=== PATIENT | male | born 1950 | race Caucasian/White ===

== ENCOUNTER 2017-10-02 19:51 | Inpatient (IN) | payer MEDICARE, OTHER, SELFPAY ==
[2017-10-02 19:52] VITALS: BP 191/98; PULSE 111; RESP 20; TEMP 37.1; O2SAT 95; BMI 27.6
--- NOTE | 2017-10-02 20:06 | EKG12_ITS ---
Test Reason : Blood Pressure : / mmHG Vent. Rate : 098 BPM Atrial Rate : 098 BPM P-R Int : 120 ms QRS Dur : 082 ms QT Int : 360 ms P-R-T Axes : 054 042 035 degrees QTc Int : 459 ms Normal sinus rhythm Normal ECG Confirmed by LYNDA JOHNSON, SERGIO ([id number]), managing editor MIR VANEGAS ([id number]) on 10/06/2017 4:22:26 PM Referred By: Tavon Mullen Confirmed By:SERGIO HOWELL MD
--- NOTE | 2017-10-02 20:06 | CT_ITS ---
STUDY: CTA CHEST REASON FOR EXAM: Male, 66 years old. SOB X 2 WEEKS BUT WORSE NOW,ELEVATED BP RADIATION DOSAGE (If Supplied By Facility): CTDIvol = ( 14.13 ) mGy, DLP = ( 549.07 ) mGycm TECHNIQUE: The examination was performed with the intravenous administration of 75ML ml of Isovue 370 contrast material. Post-processing of the angiographic images was performed, with multiplanar reformation and 3D reconstruction. Individualized dose optimization techniques were used for this CT. COMPARISON: 05.15.17 FINDINGS: History of a defect in the right upper lobe, right middle lobe and right lower lobe pulmonary artery. Filling of the main right pulmonary artery and left pulmonary artery. There is no saddle embolus. Filling defect in the left lower lobe and left upper lobe. Normal thoracic aorta and visualized great vessels. There is no demonstrated aortic dissection. Normal heart and pericardium. Normal mediastinum. Normal hilar regions. Normal visualized trachea and bronchi. Left lower lobe infiltrate suggesting pneumonia. Small right pleural effusion. Moderate left pleural effusion. Normal chest wall structures. Normal osseous structures. Normal visualized upper abdomen. CT/CTA Chest W/WO Contrast IMPRESSION: Bilateral pulmonary emboli. There is no saddle embolus. Left lower lobe infiltrate suggesting pneumonia. Small right pleural effusion. Moderate left pleural effusion. N.B. : The above information has been verbally conveyed by Antonio Hamlin MD to Danyel Cai on 10/02/2017 23:07:39 (ET). Electronically Signed: Antonio Hamlin MD at 21:46 EST , Service support , N.B. : The above information has been verbally conveyed by Antonio Hamlin MD to Danyel Cai on 10/02/2017 23:07:39 (ET).
--- NOTE | 2017-10-02 20:07 | ED.VISSUMM ---
- ER Visit Summary Date of Service: 10/02/17 Chief Complaint: Shortness of breath History of Present Illness: The patient is a 66 M with recent diagnosis of adenocarcinoma of the left lung who had partial lobectomy in July with clear margins who has not started chemotherapy yet presents with increasing dyspnea. She states over the past 2 weeks, he has had some increasing shortness of breath. He feels like he cannot catch his breath. If he walks any distance, he gets very short of breath. He has had no chest pain. He has had a constant cough with scant sputum. He denies any fevers. He has noticed he has had some right calf pain also and noticed that his leg does seem to be more swollen. He is not on anticoagulants. He was seen by pulmonology a week ago and was started on inhalers with little relief. Physical Examination: Vital signs reviewed General: Well-nourished, well-developed Head: Normocephalic, atraumatic Eyes: Pupils equal and reactive, extraocular muscles intact Neck, supple, no lymphadenopathy Heart: Regular tachycardia Respiratory: Diminished in the left base without wheezing or rhonchi Abdomen: Soft, nontender, nondistended, no peritoneal signs Back: Nontender Extremities: Asymmetric edema of right lower extremity. Normal pulses. Tenderness in calf. Skin: Normal color no rash Neuro: Alert and oriented, no focal or lateralizing deficits Test Results: [] Emergency Department Course and Treatment: The patient presents with shortness of breath but he has clear lungs. He does have persistent tachycardia, recent diagnosis of cancer, and asymmetric leg swelling. My concern was obviously for pulmonary emboli. Screening labs are obtained and are relatively unremarkable. The patient underwent CT of his chest. He has numerous bilateral pulmonary emboli. There is no saddle embolus. He has no evidence of acute right ventricular strain. He is not hypoxic. I discussed the patient with oncology who agreed with plan for heparinization. With the patient's dyspnea and significant PE, he will be admitted to the hospital. Patient was discussed with the hospitalist. Treatment Plan: [] Disposition: Admission Impression: 1. Acute bilateral pulmonary emboli This note was generated with ZeroDesktop[employer] software. It may contain incorrect words, spelling, and punctuation that were not noted in review of the chart prior to signing ED Disposition - Plan for ED Patient: Chief Complaint: Shortness of Breath Referrals: Fernando Mock, DO [NON-STAFF] -
[2017-10-02] MEDS: 0.9% Normal Saline 1,000 ML 1000 ML IV (20:20)
[2017-10-02 20:22] VITALS: BP 157/90; PULSE 100; RESP 18; O2SAT 100
[2017-10-02 20:25] VITALS: O2SAT 100
[2017-10-02 20:26] LABS: Absolute Lymphocyte Count 0.93 X10^3/ul (0.83-4.51); Basophil# 0.02 X10^3/uL; Basophil% 0.2 % (0-1); Eosinophil# 0.24 X10^3/uL; Eosinophils% 2.4 % (0-5); Hematocrit 32.1 % (40-54); Hemoglobin 10.5 g/dl (13.0-16.5); International Normalized Ratio 1.2; Lymphocyte # 0.93 X10^3/ul (4.0); Lymphocyte % 9.2 % (19-41); Mean Corp Hgb Conc 32.7 g/gl (32-36); Mean Corpuscular Hgb 29.1 pg (27.0-32.0); Mean Corpuscular Volume 88.9 fL (80-94); Mean Platelet Vol. 8.7 fl (6.2-12.0); Monocyte# 0.96 X10^3/uL; Monocyte% 9.4 % (0-10); Neutrophil # 7.98 X10^3/uL (2.7-7.7); Neutrophil % 78.5 % (47-70); POSITIVE COUNT NO; POSITIVE DIFFERENTIAL NO; POSITIVE MORPHOLOGY NO; Platelet Count 207 K/mm3 (150-450); Prothrombin Time (Protime)PT. 15.4 SECONDS (11.7-14.9); RBC Distribution Width CV 13.7 % (11.6-14.6); RBC Distribution Width SD 44.7 fl (35.1-43.9); Red Blood Count 3.61 M/mm3 (4.6-6.2); White Blood Count 10.2 K/mm3 (4.4-11.0)
[2017-10-02 20:27] LABS: Partial Thromboplast Time 32.7 Seconds (24.1-36.2)
--- NOTE | 2017-10-02 20:30 | RAD_ITS ---
STUDY: X-RAY CHEST REASON FOR EXAM: Male, 66 years old. CHEST PAIN TECHNIQUE: Single frontal view of the chest. COMPARISON: May 11, 2017 FINDINGS: Chronic appearing increased interstitial lung markings. There is an elevated left hemidiaphragm. Scarring or small left pleural effusion. Enlarged heart size. Normal mediastinum and quinton. Normal visualized pulmonary arteries. There is atherosclerotic calcification of the aortic arch with tortuosity. There are diffuse degenerative changes of the visualized thoracic spine. There is degenerative osteoarthritis of the bilateral shoulders. There is no demonstrated abnormality of the visualized soft tissue structures of the upper abdomen. RAD/Chest 1 View (Portable) IMPRESSION: Scarring or small left pleural effusion. Electronically Signed: Antonio Hamlin MD at 21:28 EST , Service support ,
[2017-10-02 20:33] LABS: Anion Gap 9 (5-15); BUN 14 mg/dL (7-18); BUN/Creat Ratio 15.1 RATIO (10-20); Calcium,Total 8.6 mg/dL (8.5-10.1); Chloride 105 mmol/L (98-107); Creatinine, Serum 0.93 mg/dL (0.70-1.30); EST Glomerular Filtration Rate 87 mL/min (>60); Est Glom Filt Rate - Afr Amer 105 mL/min (>60); Estimated Creatinine Clearance 82.86 ml/min; Glucose 114 mg/dL (74-106); Potassium 3.3 mmol/L (3.5-5.1); Sodium Level 139 mmol/L (136-145)
[2017-10-02 20:57] LABS: BNP,B-Type NATRIURETIC PEPTIDE 114.6 pg/mL (0-100)
[2017-10-02 21:00] VITALS: BP 148/89; PULSE 90; RESP 16; O2SAT 99
[2017-10-02] MEDS: HEPARIN/D5w 25,000 UNITS 25,000 UNITS/250 ML IV.SOLN. 10 UNITS IV (21:40)
[2017-10-02 22:00] VITALS: BP 151/89; PULSE 87; RESP 17; O2SAT 98
[2017-10-02 22:51] VITALS: BP 151/89; PULSE 87; RESP 17; O2SAT 98
--- NOTE | 2017-10-02 23:27 | PCM.HP.STD ---
Problem List (1) Pulmonary embolism Status: Acute (2) Cancer of lower lobe of left lung Status: Acute (3) History of prostatectomy Status: Acute (4) Hyperlipidemia Status: Acute (5) Limb weakness Status: Acute (6) Hypertension Status: Chronic (7) Multiple sclerosis Status: Chronic Comment: left leg weakness (8) Prostate cancer Status: Chronic Comment: surgery , R.T. 2014 PSA relapse 2016 ADT History of Present Illness Date of Admission: 10/02/17 Chief Complaint: SOB The patient is a 66 year old male w/ h/o prostate cancer status post radical prostatectomy followed by adjuvant radiation therapy in 2014 and has been on ADT since 2016 due to PSA relapse, residual left lower extremity weakness from a remote attack with multiple sclerosis, and non-small adenocarcinoma cell lung cancer, stage IIB(T2b, N1, M0) status post left lower lobectomy and lymph node dissection at [facility] July 03, 2017 with R0 resection admitted for SOB secondary to bilateral PE. He has been getting SOB for the past few weeks. Nothing appeared to make it better or worse. He also has a chronic nonproductive cough. The intensity and frequency of the cough have been unchanged. His SOB affected him all part of the day and yesterday SOB has been so severe that he is unable to bend over and tie his shoes. He is unable to perform his ADLs. He went to the ED for further workup. Past Medical History Past Medical History (Chronic Problems): Chronic Problems (Last Reviewed 09/24/17 @ 15:20 by Miguelina Saenz NP-C) Adenocarcinoma of lung (Chronic) Hypertension (Chronic) 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) [facility] 07/03/17 Prostate cancer (Chronic) surgery , R.T. 2014 PSA relapse 2016 ADT Multiple sclerosis (Chronic) left leg weakness Allergies morphine Adverse Reaction (Verified 10/02/17 19:55) MAKES HIS NAUSEATED AND SICK Home Medications: Ambulatory Orders Medication Instructions Recorded RX: Folic Acid 1 mg PO DAILY@0800 #30 tab 09/15/17 Lupron Depot 10/02/17 RX: Losartan Potassium 50 mg PO DAILY 10/02/17 Surgical History: - - Lobectomy Lives: Spouse/ Significant Other Smoking Status: Former smoker Alcohol: None Drugs: None - *Family History Maternal History Items: - - Paternal Past Medical History: Liver disease Paternal History of Cancer: Liver cancer,Prostate cancer Maternal Past Medical History:Unknown Maternal History of Cancer: Bone cancer VTE Information - Inpt Only VTE Present on Admission: No VTE Mechan Device Prophylaxis: None VTE Pharm Prophylaxis ordered?: Yes Patient Problems: Active and Suspected Problems (Last Reviewed 09/24/17 @ 15:20 by Miguelina Saenz NP-C) Pulmonary embolism (Acute) - Physical Exam General: Alert, Oriented x3, Cooperative HEENT: Atraumatic, PERRLA, EOMI, Normocephalic Neck: Supple, No JVD, Negative Carotid Bruits Lungs: Diminished, Rales Cardiovascular: Regular rate, No murmurs Abdomen: Bowel Sounds Present, Soft, Non Tender Extremities: No edema, Capillary Refill Less than 3 Seconds Skin: No rashes, No breakdown Musculoskeletal: No Tenderness to Palpation of Joints or Extremities Neurological: Cranial nerves II-XII grossly intact Psych/Mental Status: Normal Affect, Appropriate Vital Signs Temp Pulse Resp BP Pulse Ox 98.7 F 87 17 151/89 H 98 10/02/17 19:52 10/02/17 22:51 10/02/17 22:51 10/02/17 22:51 10/02/17 22:51 Oxygen Flow Rate 2 Oxygen Delivery Method Nasal Cannula Weight: 87.543 kg Body Mass Index (BMI) 27.6 Laboratory Tests Past 24 Hrs 10/02/17 10/02/17 10/02/17 20:10 20:10 20:10 WBC 10.2 RBC 3.61 L Hgb 10.5 L Hct 32.1 L MCV 88.9 MCH 29.1 MCHC 32.7 RDW 13.7 RDW Differential 44.7 H Plt Count 207 MPV 8.7 Immature Gran % (Auto) 0.300 Neut % (Auto) 78.5 H Lymph % (Auto) 9.2 L [place] % (Auto) 9.4 Eos % (Auto) 2.4 Baso % (Auto) 0.2 Absolute Neuts (auto) 8.0 H Absolute Lymphs (auto) 0.93 Total Counted Not Reportable PT 15.4 H INR 1.2 APTT 32.7 Sodium 139 Potassium 3.3 L Chloride 105 Carbon Dioxide 25.0 Anion Gap 9 BUN 14 Creatinine 0.93 Estim Creat Clear Calc 82.86 Est GFR (MDRD) Af Amer 105 Est GFR (MDRD) Non-Af 87 BUN/Creatinine Ratio 15.1 Glucose 114 H Calcium 8.6 Troponin I 0.02 B-Natriuretic Peptide 10/02/17 20:10 WBC RBC Hgb Hct MCV MCH MCHC RDW RDW Differential Plt Count MPV Immature Gran % (Auto) Neut % (Auto) Lymph % (Auto) [place] % (Auto) Eos % (Auto) Baso % (Auto) Absolute Neuts (auto) Absolute Lymphs (auto) Total Counted PT INR APTT Sodium Potassium Chloride Carbon Dioxide Anion Gap BUN Creatinine Estim Creat Clear Calc Est GFR (MDRD) Af Amer Est GFR (MDRD) Non-Af BUN/Creatinine Ratio Glucose Calcium Troponin I B-Natriuretic Peptide 114.6 H Assessment/Plan Active and Suspected Problems (Last Reviewed 09/24/17 @ 15:20 by Miguelina Saenz, JUAN LUIS-C) Pulmonary embolism (Acute) 66 year old male w/ h/o prostate cancer status post radical prostatectomy followed by adjuvant radiation therapy in 2014 and has been on ADT since 2016 due to PSA relapse, residual left lower extremity weakness from a remote attack with multiple sclerosis, and non-small adenocarcinoma cell lung cancer, stage IIB(T2b, N1, M0) status post left lower lobectomy and lymph node dissection at [facility] July 03, 2017 with R0 resection admitted for SOB secondary to bilateral PE. 1) Acute bilateral PE: Will start heparin gtt. Will get ECHO and doppler in AM. Will get trops. No e/o heart strain on EKG. C/w oxygen. 2) Non-small adenocarcinoma cell lung cancer, stage IIB(T2b, N1, M0) status post left lower lobectomy and lymph node dissection at [facility] July 03, 2017 with R0 resection: Pt to have port place on Thursday. He is to start adjuvant chemotherapy with carboplatin Alimta for 4 cycles supported with antiemetics, steroids, B12 and folic acid and primary prophylaxis against febrile neutropenia with Neulasta due to increased risk for febrile neutropenia outpt. Monitor. 3) Hypokalemia: Will replace. Monitor. 4) Prophylaxis: Heparin gtt.
[2017-10-03] VITALS (15 sets, daily range): BP systolic 126–168; BP diastolic 71–98; PULSE 82–112; RESP 16–22; TEMP 36.7–37.3; O2SAT 95–98; BMI 26.8; BMI 27.7
[2017-10-03] MEDS: 0.9% Normal Saline 1,000 ML 100 ML IV ×2 (01:34→14:46)
[2017-10-03 04:41] LABS: Hematocrit 27.2 % (40-54); Hemoglobin 9.1 g/dl (13.0-16.5); Mean Corp Hgb Conc 33.5 g/gl (32-36); Mean Corpuscular Hgb 30.2 pg (27.0-32.0); Mean Corpuscular Volume 90.4 fL (80-94); Mean Platelet Vol. 8.9 fl (6.2-12.0); Platelet Count 189 K/mm3 (150-450); RBC Distribution Width CV 13.3 % (11.6-14.6); RBC Distribution Width SD 42.8 fl (35.1-43.9); Red Blood Count 3.01 M/mm3 (4.6-6.2); Scan Indicated on CBC? Y/N NO; White Blood Count 8.2 K/mm3 (4.4-11.0)
[2017-10-03 04:55] LABS: Partial Thromboplast Time 63.1 Seconds (24.1-36.2)
[2017-10-03] MEDS: Piperacil/Tazobactam 3.375 GM/50 ML ML IV ×3 (05:02→21:43)
[2017-10-03 05:06] LABS: Anion Gap 7 (5-15); BUN 12 mg/dL (7-18); BUN/Creat Ratio 15.6 RATIO (10-20); Chloride 104 mmol/L (98-107); Creatinine, Serum 0.77 mg/dL (0.70-1.30); EST Glomerular Filtration Rate 108 mL/min (>60); Est Glom Filt Rate - Afr Amer 131 mL/min (>60); Estimated Creatinine Clearance 100.07 ml/min; Glucose 95 mg/dL (74-106); Potassium 3.9 mmol/L (3.5-5.1); Sodium Level 136 mmol/L (136-145)
--- NOTE | 2017-10-03 05:55 | ECHOD_ITS ---
Reason For Study: Emboli Procedure This was a 2D Doppler, Color Flow transthoracic echocardiogram. Exam performed portable in patient room. Left Ventricle Normal size and thickness. The estimated ejection fraction is 65 %. Stage II diastolic dysfunction. Right Ventricle Normal right ventricle. Normal systolic function. Atria The left atrium is mildly enlarged. Mitral Valve The mitral valve is structurally normal. No prolapse or stenosis seen. Trivial mitral valve insufficiency. Tricuspid Valve Normal tricuspid valve. Moderate (2+) tricuspid valve insufficiency. Right ventricular systolic pressure estimated to be 60 mmHg. Aortic Valve Normal aortic valve. Pulmonic Valve Normal pulmonic valve. Trivial pulmonic valve insufficiency. Great Vessels Normal aortic root. Pericardium/Pleural No pericardial effusion. MMode/2D Measurements & Calculations LVIDd: 4.8 cm IVSd: 1.00 cm Ao root diam: 3.1 cm LVIDs: 3.0 cm LVPWd: 0.96 cm LA dimension: 4.4 cm RVDd: 3.5 cm FS: 38.1 % LAV(MOD-bp): 55.5 ml LA A4 area: 18.1 cm2 RA A4 area: 14.3 cm2 LAV(MOD-bp) Indexed: 27.0 ml/m2 LAV(MOD-sp2): 57.0 ml LAV(MOD-sp4): 49.1 ml Doppler Measurements & Calculations MV E max kiran: 82.4 cm/sec Lat Peak E' Kiran: 14.5 cm/sec Med Peak E' Kiran: 7.9 cm/sec MV A max kiran: 75.4 cm/sec E/E' lat: 5.7 E/E' med: 10.4 MV E/A: 1.1 Ao V2 max: 132.0 cm/sec LV V1 max: 125.7 cm/sec PA V2 max: 83.2 cm/sec Ao max P.0 mmHg LV V1 max P.3 mmHg Ao V2 mean: 95.9 cm/sec Ao mean P.1 mmHg Ao V2 VTI: 24.6 cm TR max kiran: 370.5 cm/sec TR max P.9 mmHg Interpretation Summary The estimated ejection fraction is 65 %. Stage II diastolic dysfunction. Moderate (2+) tricuspid valve insufficiency Right ventricular systolic pressure estimated to be 60 mmHg. Severe pulmonary hypertension Normal RV size and systolic function Ordering Physician: Braulio De La Rosa Referring Physician: Doron Vernon Performed By: Florence Garner, MARY, RVT
--- NOTE | 2017-10-03 07:52 | VDLE_ITS ---
Reason For Study: PE RIGHT LEFT CFV is partially compressible with decreased CFV is compressible, spontaneous, phasic, flow. competent, and demonstrates normal FV and POP V are dilated and noncompressible augmentation. with no flow. FV is compressible, spontaneous, phasic, T/P Trunk, PTV, Peroneal V, Gastroc V, and competent and demonstrates normal Soleus V are dilated and noncompressible. augmentation. GSV is normal. POP V is compressible, spontaneous, phasic, Procedure competent and demonstrates normal Exam performed portable in patient room. augmentation. The exam was diagnostic. LT PerV is compressible. A preliminary report was called and/or faxed T/P Trunk and PTV are dilated and to the pt's RN. noncompressible. GSV is dilated and noncompressible from the ankle to the knee. Remainder of GSV is compressible. Interpretation Summary Acute deep venous thrombosis right common femoral, femoral, popliteal, tibioperoneal trunk, posterior tibial, gastrocnemius, and soleus veins. Acute deep venous thrombosis left tibioperoneal trunk and posterior tibial veins. Superficial thrombophlebitis left great saphenous vein from the ankle to the knee. Ordering Physician: Skye Haro Performed By: Hamilton Anne RVT
--- NOTE | 2017-10-03 07:55 | PCM.PN.HOSP ---
Patient Problems: Active and Suspected Problems (Last Reviewed 09/24/17 @ 15:20 by HAI Zamora) Pulmonary embolism (Acute) Subjective: Patient with no acute events since presentation per his and nursing report. He denies any chest discomfort or worsened dyspnea since initial presentation. Admit to right greater than left lower extremity edema and some discomfort recently over the last couple weeks behind his right knee. Patient denies fevers, chills, nausea, emesis, abdominal pain, chest pain. Objective: Physical Examination: General: awake, alert, oriented x 3 and cooperative, seated upright in bed in no apparent distress. Skin: normal color, turgor, no icterus, cyanosis. HEENT: AT/NC, EOMI, PERRLA, MMM. Lungs: Diminished BS, > bases, despite CTPA findings, not coarse, no rales, ronchi or wheezing. Heart: Regular rate and rhythm; no gallop, rub audible. Abdomen: soft, NTTP, ND, normal BS. Extremities: no cyanosis, clubbing, RLE s/p several toe amputations, R>L mild non-pitting edema, TTP palpation R calf/posterior knee region. Neurological: patient awake, alert, oriented x 3; cognitive function intact; pupils equally reactive to light and accomodation; cranial nerves II-XII grossly normal, moving all 4 extremities, no focal deficits, strength mildly to moderately globally decreased. Psychiatric: affect appears normal, no acute evidence of depressive or anxiety feelings. Vitals/I&O's: Vital Signs Temp Pulse Resp BP Pulse Ox 99.1 F 112 H 18 126/79 H 97 10/03/17 03:57 10/03/17 07:12 10/03/17 03:57 10/03/17 03:57 10/03/17 03:57 Oxygen Delivery Method Room Air Weight: 187 lb 2.759 oz Body Mass Index (BMI) 26.8 Intake and Output for Last 24 Hours 10/01/17 10/02/17 10/03/17 23:59 23:59 23:59 Intake Total 511.7 / 511.7 Balance 511.7 / 511.7 Laboratory Results 10/03/17 04:26: WBC 8.2, RBC 3.01 L, Hgb 9.1 L, Hct 27.2 L, MCV 90.4, MCH 30.2, MCHC 33.5, RDW 13.3, RDW Differential 42.8, Plt Count 189, MPV 8.9 10/03/17 04:26: Sodium 136, Potassium 3.9, Chloride 104, Carbon Dioxide 25.0, Anion Gap 7, BUN 12, Creatinine 0.77, Estim Creat Clear Calc 100.07, Est GFR (MDRD) Af Amer 131, Est GFR (MDRD) Non-Af 108, BUN/Creatinine Ratio 15.6, Glucose 95, Calcium 8.0 L 10/03/17 04:26: APTT 63.1 H Current Medications Enoxaparin Sodium (Lovenox) 80 mg 1 mg/kg (80 mg) SC Q12@0600,1800 VALENTIN Folic Acid (Folic Acid) 1 mg PO DAILY@0800 [facility] Heparin Sodium (Porcine) (Heparin Na) 0 unit IV UD PRN PRN Reason: Protocol Sodium Chloride () 1,000 mls @ 100 mls/hr IV .Q10H [facility] Last Admin: 10/03/17 01:34 Dose: 100 mls/hr Piperacillin Sod/Tazobactam Sod (Zosyn) 3.375 gm in 50 mls @ 12.5 mls/hr IV Q8 VALENTIN Last Admin: 10/03/17 05:02 Dose: 12.5 mls/hr Levofloxacin (Levaquin) 750 mg in 150 mls @ 100 mls/hr IV Q24H [facility] Losartan Potassium (Cozaar) 50 mg PO DAILY [facility] Magnesium Hydroxide (Milk Of Magnesia) 30 ml PO DAILY PRN PRN Reason: Constipation Sodium Chloride () 5 - 30 ml IV UD PRN PRN Reason: SALINE FLUSH Assessment/Plan Active and Suspected Problems (Last Reviewed 09/24/17 @ 15:20 by Miguelina Saenz NP-C) Pulmonary embolism (Acute) The patient is a 66 y/o M w/ PMHx: HTN, HLD, Prostate cancer s/p radical prostatectomy followed by adjuvant radiation therapy 2014 followed by ADT since 2015 due to PSA relapse, Chronic Residual LLE weakness following Remote attack with Multiple Sclerosis, Non-small adenocarcinoma cell lung cancer, stage IIB (T2b, N1, M0) status post LLL lobectomy and lymph node dissection [facility] July 03, 2017 with R0 resection who presents to the [facility] ED on 10/03/17 with dyspnea x 2 weeks. (1) Dyspnea secondary to Acute BL Pulmonary Embolism, HCAP (see #2): EKG without acute findings, CXR no acute process w/ chronic changes, ? L pleural effusion, CTPA with BL PE, no addle embolus, LL infiltrate, small R pleural effusion, moderate L pleural effusion, CBC w/ WBC 10.2, Hgb 10.5, Plts 207 with L shift, chemistry w/ K 3.3 and glucose 114 otherwise not marked, trop x 1 normal. Admitted to the PCU, maintained on cardiac telemetry, BNP 114.6, ECHO w/ EF 65%, stage II diastolic dysfunction, moderate TV insufficiency, RVSP 60 mmHg consistent with severe pulmonary hypertension, normal RV and systolic function, BL LE DVT US + BL per preliminary read, final read pending. In the ED initiated on heparin drip. Given acute BL PE in the setting of known cancer, per recommendations based on CLOT trial and superiority of injectable anticoagulation compared to PO anticoagulation with pts with active malignancy and thrombosis will transition to therapeutic lovenox regimen. Will plan review with ADAM, ALLISON to assess cost. If not an option (i.e cost), may consider usage per CLOT trial of new oral anticoagulants or coumadin regimen. Will need oxygenation assessment prior to discharge. (2) Dyspnea also secondary to concurrently noted HCAP Pneumonia: CXR no acute process w/ chronic changes, ? L pleural effusion, CTPA with BL PE, no addle embolus, LL infiltrate, small R pleural effusion, moderate L pleural effusion, CBC w/ WBC 10.2, Hgb 10.5, Plts 207 with L shift. Will maintain on oxygen with wean as tolerated to room air, continue ATC duonebs, PRN albuterol, maintained on IV Zosyn and Levaquin w/ pending MRSA assessment, add vanc if positive, HOB, IS parameters w/ pending sputum cultures and urine antigens. Bld cx x 2 obtained in the ED. (3) Prostate cancer: s/p radical prostatectomy, followed by adjuvant radiation therapy 2014 followed by ADT since 2016 due to PSA relapse, unclear lupron dose, medication rec pending. (4) Non-small adenocarcinoma cell lung cancer: Noted stage IIB (T2b, N1, M0) s/p LLL lobectomy and lymph node dissection [facility] July 03, 2017 with R0 resection. Following w/ Dr. Mullen, Dr. Leger outpatient. Updated Dr. Valencia as had planned port placement 10/05/17, will be deferred given acute infection and BL PE. Will additionally contact Dr. Leger service and update as noted planned possible chemotherapy start this upcoming week after port placement. Updated Dr. Mock of patient admission, who works with Dr. Mullen also. (5) Multiple Sclerosis: Noted chronic Residual LLE weakness following remote attack, fall precautions, PT/OT consulted. (6) Hypertension: Maintain on home losartan regimen, PRN hydralazine. (7) Hyperlipidemia: Not on agent, defer to outpatient. (8) GERD: Famotidine. (9) DVT Prophylaxis: SCDs, therapeutic lovenox. (10) CODE status: Discussed CODE status at length including difference between FULL code, DNR-CCA and DNR-CC status. Following discussions about the differences in these status, patient and confirmed living will in place, HCPOA , currently will maintain FULL CODE status and if worsened status or required prolonged supportive measures care would be withdrawn per his living will. Advanced Care Planning Face to Face Time: 16 minutes. Code Visit Inpatient E&M: 79639 Subs Hosp L2 Procedures: 09120 Advncd Care Plan 30 Min
[2017-10-03] MEDS: Enoxaparin 80 MG/0.8 ML Syringe SC ×2 (08:59→18:21)
[2017-10-03] MEDS: Losartan Potassium 50 MG Tablet PO (09:02)
[2017-10-03] MEDS: Folic Acid 1 MG Tablet PO (09:02)
[2017-10-03 09:31] LABS: Magnesium 2.3 mg/dL (1.6-2.6); Phosphorus 3.4 mg/dL (2.5-4.9)
[2017-10-03] MEDS: Ipratropium/Albuterol Sulfate 3 ML AMPUL.NEB INHALATION ×2 (13:15→19:34)
--- NOTE | 2017-10-03 17:07 | CASEMGMT ---
Face to Face with patient for initial transition planning/care coordination assessment. YAN MEDINA introduced self and role at [facility], pt voices understanding and consents to assessment at this time. Pt is sitting up in bed in no distress at this time. Pt is A/O x4 at this time and answers all questions appropriately at this time. Care providers, pharmacy, and demographics verified. See attached link. Pt voices no further concerns/needs at this time. Advised pt to ask for CM if any further questions/concerns/needs arise, voices understanding. CM to follow for any further discharge planning/needs. Per Dr. Haro, they would like to send pt home on Lovenox at discharge. Script sent to [email or web address] and per Jorgito, pt's co-pay will be over $600. Dr. Haro paged with this info at this time. [place]AN[place] YAN MEDINA
[2017-10-03] MEDS: Famotidine 20 MG Tablet PO (21:43)
[2017-10-03 23:11] LABS: M R Staph aureus DNA By PCR Negative (Negative); Probe Check PASS; Specimen Processing Control PASS
[2017-10-04] MEDS: 0.9% Normal Saline 1,000 ML 100 ML IV (00:04)
[2017-10-04 03:00] VITALS: PULSE 79
[2017-10-04 04:05] VITALS: BP 131/80; PULSE 80; RESP 16; TEMP 37; O2SAT 97
[2017-10-04] MEDS: Piperacil/Tazobactam 3.375 GM/50 ML ML IV (05:25)
[2017-10-04] MEDS: Enoxaparin 80 MG/0.8 ML Syringe SC (05:25)
[2017-10-04] MEDS: Ipratropium/Albuterol Sulfate 3 ML AMPUL.NEB INHALATION (07:00)
[2017-10-04 07:02] LABS: Absolute Lymphocyte Count 0.67 X10^3/ul (0.83-4.51); Absolute Neutrophil Count 4.8 X10^3/uL (2.0-7.7); Basophil# 0.02 X10^3/uL; Basophil% 0.3 % (0-1); Eosinophil# 0.25 X10^3/uL; Eosinophils% 3.9 % (0-5); Hematocrit 28.3 % (40-54); Hemoglobin 9.2 g/dl (13.0-16.5); Lymphocyte # 0.67 X10^3/ul (4.0); Lymphocyte % 10.4 % (19-41); Mean Corp Hgb Conc 32.5 g/gl (32-36); Mean Corpuscular Hgb 29.3 pg (27.0-32.0); Mean Corpuscular Volume 90.1 fL (80-94); Mean Platelet Vol. 9.1 fl (6.2-12.0); Monocyte# 0.68 X10^3/uL; Monocyte% 10.5 % (0-10); Neutrophil # 4.79 X10^3/uL (2.7-7.7); Neutrophil % 74.3 % (47-70); Platelet Count 235 K/mm3 (150-450); RBC Distribution Width CV 13.8 % (11.6-14.6); Red Blood Count 3.14 M/mm3 (4.6-6.2); White Blood Count 6.5 K/mm3 (4.4-11.0)
[2017-10-04 07:05] VITALS: PULSE 80; RESP 20
[2017-10-04 07:06] VITALS: PULSE 95
[2017-10-04 07:23] LABS: POSITIVE COUNT NO; POSITIVE DIFFERENTIAL NO; POSITIVE MORPHOLOGY NO
--- NOTE | 2017-10-04 07:33 | ONC.CONS.INP ---
Consult Referring Physician: Skye Haro Date of Service:: 10/04/17 Chief Complaint: SOB History of Present Illness: Mr Jordan Chavarria is a 66-year-old gentleman smoker who quit over 20 years ago after a 30+ pack year smoking who presented with a months history of increasing dyspnea on exertion and wheezing. Chest x-ray followed by a CT scan of the chest revealed a left lower lobe mass, later confirmed hypermetabolic by way of PET/CT. Bronchoscopy by Dr. Mullne on 05/19/2017 showed a left lower lobe endobronchial lesion and biopsy confirmed an adenocarcinoma. Brain MRI at the time of staging showed no evidence of metastatic disease. Pulmonary function tests were satisfactory for surgical resection. Thus on July 03, 2017 he underwent left lower lobe sleeve lobectomy at [facility] by Dr. Alfonso. Final pathology revealed a 6.5 cm single focus adenocarcinoma G2 negative margins no visceral pleural invasion no lymphovascular invasion and metastatic cancer was found in 1 lymph node position 11 mL (N1) of 16 N1 nodes dissected and non-and 8 N2 nodes dissected. It was proposed he commence with adjuvant chemotherapy, specifically Carboplatin/pemetrexed x 4 cycles. Per patient elected to delay by 1 month d/t pending insurance changes. He was scheduled to initiate therapy 10/06/17 subsequent to port placement 10/05/17. Care has been complicated by acute dyspnea which prompted presentation to [facility] 10/03/17. Found to have bilateral PEs and bilateral LE DVTs. Now on Lovenox. His past medical history is notable for prostate cancer presenting with an elevated PSA of 42. Patient is status post radical prostatectomy in October 2014 for a Aretha score 9 adenocarcinoma involving about 80% of the prostate with extra prostatic extension extensive positive margins and lymphovascular invasion as well as tory-neural invasion. Following his surgery patient underwent adjuvant radiation therapy concluded in 2014. At the completion of his treatment his PSA was less than 0.1 however by 2016 PSA relapse prompted initiation of ADT by his urologist which he continues to date with the most recent PSA of less than 0.1. His past medical history is also notable for multiple sclerosis with residual left lower extremity weakness but no recent flares. Past Medical History: Chronic Problems (Last Reviewed 09/24/17 @ 15:20 by Miguelina Saenz, JUAN LUIS-C) Adenocarcinoma of lung (Chronic) Hypertension (Chronic) 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) [facility] 07/03/17 Prostate cancer (Chronic) surgery , R.T. 2015 PSA relapse 2016 ADT Multiple sclerosis (Chronic) left leg weakness Past Medical/Surgical History: Past Medical History - Most Recent Inpatient Visit Past Medical History Start: 10/03/17 00:07 Text: Status: Complete Freq: ONCE Protocol: Document 10/03/17 00:07 ARN (Rec: 10/03/17 00:29 ARN [id number]) BMI Required to complete PMH What is Patient's BMI 27.7 Past Medical History Unable History Recalled Yes Query Text:Pt Unable/Family Not Present Neurologic Medical History Hx Stroke/TIA No Hx Dementia/Alzheimer's No Hx Parkinson's Disease No Hx Seizures No Hx Multiple Sclerosis Yes: 25 YRS AGO HAD DX, BUT ANOTHER DR SAID NOT, Hx Migraines No Cardiac Medical History VTE Present on Admission Yes Hx of Deep Vein Thrombosis/VTE/PE No Hx Hypertension Yes: BP MED 5 YRS Hx Chest Pain/Angina No Hx Heart Attack No Hx Cardiac Surgery/Stents/Etc. No Hx Heart Failure No Hx Pacemaker/AICD No Hx Irregular Heartbeat and/or Afib No Hx Anticoagulant Therapy No Query Text:(Coumadin, Aspirin, Plavix, Xarelto, etc.) Hx Pain in Legs when Walking/Leg Cramps No Respiratory Medical History Hx COPD No Hx Emphysema No Hx Smoking No Smoking Status Former smoker Years Smoking 25 Packs Smoked per Day 2 Hx Smoking Cessation Counseling Yes Hx Smoking Exposure Yes Hx Tobacco Use in last 12 months No Hx of Pipe Smoking No Hx of Cigar Smoking Yes Hx Sleep Apnea No CPAP No BIPAP No Do you snore loudly (louder than talking No or can be heard through closed doors)? Do you often feel tired/ fatigued/ No sleepy during daytime? Has anyone observed you stop breathing No during sleep? STOP Results Negative GI Medical History Hx Ulcer Yes Hx Hepatitis No Hx Cirrhosis No Hx GI Bleed No Hx Unplanned Weight Loss No Genitourinary Medical History Indwelling Catheter in Place on Arrival/ No Admission Hx Renal Disease No Hx Dialysis No Musculoskeletal History Hx Arthritis No Hx Rheumatoid Arthritis No Endocrine Medical History Hx Diabetes No Hx Thyroid Disease No Hematologic Medical History Hx of Blood Transfusion No Hx of Transfusion in last 3 Months No Ever experience any problems with No transfusion(s)? Hx of Preganancy in last 3 Months N/A Nurse Filling Out Transfusion & ANORRIS Questions: Date: 10/03/17 Time: 00:29 Psycho/Social Medical History Hx Depression No Hx Anxiety No Hx Behavior Disorder No Hx Alcohol Use No Hx Substance Use No Other Medical History Hx Blood Disorders No Hx Anemia No Hx Cancer Yes: PROSTATE CANCER, BX 2014, LUNG CA Hx Drug Resistant Organism No Wound/Pressure Injury Present on Arrival No /Admission Query Text:If yes, chart assessment in Shift/Clinical Findings Central Line/PICC/VAD Present on Arrival No /Admission Antibiotics within last 7 days? No Methicillin Resistant Staphylococcus aureus Screening Active MRSA No Risk for Readmission Number of Risk Factors 3 At Risk for Readmission Patient is At Risk For Readmission Patient is eligible for Call Back Y Past Medical History (Last Reviewed 09/24/17 @ 15:20 by Miguelina Saenz NP-C) Viral pharyngitis (Acute) Nasopharyngitis (Acute) Limb weakness (Acute) unusual tierdness (Acute) Sinusitis (Acute) SOB (shortness of breath) (Acute) Dyspnea (Acute) Adenocarcinoma of lung (Chronic) Hyperlipidemia (Acute) Hypertension (Chronic) 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) LYMPH NODE REMOVAL-CHEST (Acute) Past Surgical History (Last Reviewed 09/24/17 @ 15:20 by Miguelina Saenz NP-C) History of prostatectomy (Acute) Maternal Family History: Family History (Last Reviewed 09/24/17 @ 15:20 by Miguelnia Saenz NP-C) Father Prostate cancer Liver cancer Liver disease Mother Bone cancer Family History: - - Paternal Past Medical History: Liver disease Paternal History of Cancer: Liver cancer,Prostate cancer Maternal Past Medical History:Unknown Maternal History of Cancer: Bone cancer - Social History Lives: Spouse/ Significant Other Smoking Status: Former smoker Alcohol: None Drugs: None Allergies/Adverse Reactions: Allergy/AdvReac Type Severity Reaction Status Date / Time morphine AdvReac MAKES HIS Verified 10/02/17 19:55 NAUSEATED AND SICK Home Medications Medication Instructions Recorded Folic Acid 1 mg PO DAILY@0800 #30 tab 09/15/17 Losartan Potassium 50 mg PO DAILY 10/02/17 Lupron Depot 10/02/17 Enoxaparin [Lovenox] 80 mg SC Q12@0600,1800 #60 syringe 10/03/17 Review of Systems Constitutional:: Denies: Fever, Sweats, Weight loss, Appetite change, Chills Cardiovascular:: Denies: Chest pain, Palpitations, Dyspnea on exertion, Orthopnea, PND, Shortness of breath Respiratory: Denies: Cough, Hemoptysis, Shortness of Breath, Wheezing Gastrointestinal:: Denies: Abdominal pain, Nausea, Vomiting, Diarrhea, Constipation, Hematochezia Genitourinary: Denies: Dysuria, Hematuria, 15, Flank pain Musculoskeletal:: Denies: Back pain, Myalgia, Arthralgia Skin: Denies: Rash, Skin Changes, Wounds Neurological:: Denies: Headache, Dizziness, Numbness, Tingling, Visual changes, Tinnitus, Hearing loss Psychiatric: Denies: Anxiety, Depression, Homicidal Ideations, Suicidal Ideations Vital Signs Height 5 ft 10 in Weight: 187 lb 2.759 oz Weight in Pounds 187.2 lbs Pulse Ox 97 Temperature 98.6 F Pulse Rate 80 Respiratory Rate 16 Blood Pressure [2nd BP] 166/95 Blood Pressure 131/80 Blood Pressure Position [2nd Semi-Fowlers BP] Blood Pressure Position Semi-Fowlers - Physical Exam General: Alert, Oriented x3, No apparent distress HEENT: Atraumatic, Normocephalic Oropharynx:: Negative for: Dry mucosa, Ulcerated lesions Neck:: Supple, Trachea midline. Negative for: JVD, bilateral Cardiac:: Regular rate, Regular rhythm, Normal S1, Normal S2. Negative for: Murmur Lungs: Clear to auscultation, Excusion symmetrical. Negative for: Rhonchi, Wheezes Abdomen:: Bowel sounds x 4, Soft, Non-tender, Non-distended. Negative for: Hepatosplenomegaly Extremities:: Negative for: Cyanosis, Edema, Calf tenderness - R calf pain resolved Neurological: Neuro grossly intact Skin:: Negative for: Lesions, Rash, Petechiae, Ecchymosis Psychiatric:: Depressed affect Lymphatics:: Negative for: Cervical lymphadenopathy, Supraclavicular lymphadenopathy, Axillary lymphadenopathy Laboratory Data: Microbiology 10/03/17 10:35 Streptococcus pneumoniae Antigen (M - Final Urine, Clean Catch 10/03/17 10:35 Legionella Antigen - Final Urine, Clean Catch Laboratory Tests 10/04/17 10/03/17 10/03/17 Range/Units 05:47 21:50 04:26 WBC 6.5 (4.4-11.0) K/mm3 RBC 3.14 L (4.6-6.2) M/mm3 Hgb 9.2 L (13.0-16.5) g/dl Hct 28.3 L (40-54) % MCV 90.1 (80-94) fL MCH 29.3 (27.0-32.0) pg MCHC 32.5 (32-36) g/gl RDW 13.8 (11.6-14.6) % RDW Differential 46.0 H (35.1-43.9) fl Plt Count 235 (150-450) K/mm3 MPV 9.1 (6.2-12.0) fl Immature Gran % (Auto) 0.600 (0.0-0.9) % Neut % (Auto) 74.3 H (47-70) % Lymph % (Auto) 10.4 L (19-41) % Cottle % (Auto) 10.5 H (0-10) % Eos % (Auto) 3.9 (0-5) % Baso % (Auto) 0.3 (0-1) % Absolute Neuts (auto) 4.8 (2.0-7.7) X10^3/uL Absolute Lymphs (auto) 0.67 L (0.83-4.51) X10^3/ul Total Counted Not Reportable Phosphorus 3.4 (2.5-4.9) mg/dL Magnesium 2.3 (1.6-2.6) mg/dL MRSA (PCR) Negative (Negative) Diagnostic Data: Diagnostic Data Chest CTA 10/02/17 20:06 IMPRESSION: Bilateral pulmonary emboli. There is no saddle embolus. Left lower lobe infiltrate suggesting pneumonia. Small right pleural effusion. Moderate left pleural effusion. N.B. : The above information has been verbally conveyed by Antonio Hamlin MD to Danyel Cai on 10/02/2017 23:07:39 (ET). Electronically Signed: Antonio Hamlin MD at 21:46 EST , Service support , N.B. : The above information has been verbally conveyed by Antonio Hamlin MD to Danyel Cai on 10/02/2017 23:07:39 (ET). Chest X-Ray 10/02/17 20:30 IMPRESSION: Scarring or small left pleural effusion. Electronically Signed: Antonio Hamlin MD at 21:28 EST , Service support , Assessment and Plan The patient is a 66 y/o M w/ PMHx: HTN, HLD, Prostate cancer s/p radical prostatectomy followed by adjuvant radiation therapy 2014 followed by ADT since 2015 due to PSA relapse, Chronic Residual LLE weakness following Remote attack with Multiple Sclerosis, Non-small adenocarcinoma cell lung cancer, stage IIB (T2b, N1, M0) status post LLL lobectomy and lymph node dissection [facility] July 03, 2017 with R0 resection who presents to the [facility] ED on 10/03/17 with dyspnea x 2 weeks. 1- Stage IIB (T2b, N1, M0) Non-small cell adenocarcinoma of the left lung- s/p LLL lobectomy and lymph node dissection at [facility] July 03, 2017. Will evaluate in clinic on 10/06/17 as previously planned. Certainly not having a port will not preclude him from initiating chemotherapy timely, although will allow flexibility given the context of adjuvant therapy. 2- Acute VTE by way of bilateral Pulmonary Embolism and bilateral lower extremity DVTs- confirmed with CTA demonstrating BL PE, no saddle embolus, LL infiltrate, small R pleural effusion and moderate L pleural effusion. Low molecular weight heparin (Lovenox) is the agent of choice due to proven superiority to Coumadin and prevention of recurrent VTE. Although, if needed can transition to oral anticoagulant d/t patient's concern r/t cost of Lovenox. Will discuss 10/06/17. Spouse is willing to administer SQ injections. 3- Prostate cancer: s/p radical prostatectomy, followed by adjuvant radiation therapy 2014 followed by ADT since 2015 due to PSA relapse, unclear lupron dose, medication rec pending. 4- Dyspnea also secondary to concurrently noted HCAP Pneumonia- Defer management to primary team Corina Holbrook, JONATHAN, [employer]-C, AOCNP Medications: Prescriptions This Visit Medication Instructions Recorded Losartan Potassium 50 mg PO DAILY 10/02/17 Lupron Depot 10/02/17 Enoxaparin [Lovenox] 80 mg SC Q12@0600,1800 #60 syringe 10/03/17 Medications Added to Medication List This Visit Category Date Time Status Ensure Enlive Med 10/04/17 10:00 Active 120 ml PO 4X/DAY Primary Care Provider: Doron Vernon Referring Provider: - Problem List (1) Pulmonary embolism Status: Acute Qualifiers: Pulmonary embolism type: other Chronicity: acute Acute cor pulmonale presence: without acute cor pulmonale Qualified Code(s): I26.99 - Other pulmonary embolism without acute cor pulmonale (2) Cancer of lower lobe of left lung Status: Acute (3) Prostate cancer Status: Chronic Comment: surgery , R.T. 2015 PSA relapse 2016 ADT (4) HCAP (healthcare-associated pneumonia) Status: Acute
--- NOTE | 2017-10-04 07:44 | CON.PCM_ITS ---
Consult Referring Physician: Skye Haro Date of Service:: 10/04/17 Chief Complaint: SOB History of Present Illness: Mr Jordan Chavarria is a 66-year-old gentleman smoker who quit over 20 years ago after a 30+ pack year smoking who presented with a months history of increasing dyspnea on exertion and wheezing. Chest x-ray followed by a CT scan of the chest revealed a left lower lobe mass, later confirmed hypermetabolic by way of PET/CT. Bronchoscopy by Dr. Mullen on 05/19/2017 showed a left lower lobe endobronchial lesion and biopsy confirmed an adenocarcinoma. Brain MRI at the time of staging showed no evidence of metastatic disease. Pulmonary function tests were satisfactory for surgical resection. Thus on July 03, 2017 he underwent left lower lobe sleeve lobectomy at [facility] by Dr. Alfonso. Final pathology revealed a 6.5 cm single focus adenocarcinoma G2 negative margins no visceral pleural invasion no lymphovascular invasion and metastatic cancer was found in 1 lymph node position 11 mL (N1) of 16 N1 nodes dissected and non-and 8 N2 nodes dissected. It was proposed he commence with adjuvant chemotherapy, specifically Carboplatin/pemetrexed x 4 cycles. Per patient elected to delay by 1 month d/t pending insurance changes. He was scheduled to initiate therapy 10/06/17 subsequent to port placement 10/05/17. Care has been complicated by acute dyspnea which prompted presentation to [facility] 10/03/17. Found to have bilateral PEs and bilateral LE DVTs. Now on Lovenox. His past medical history is notable for prostate cancer presenting with an elevated PSA of 42. Patient is status post radical prostatectomy in October 2014 for a Aretha score 9 adenocarcinoma involving about 80% of the prostate with extra prostatic extension extensive positive margins and lymphovascular invasion as well as tory-neural invasion. Following his surgery patient underwent adjuvant radiation therapy concluded in 2014. At the completion of his treatment his PSA was less than 0.1 however by 2016 PSA relapse prompted initiation of ADT by his urologist which he continues to date with the most recent PSA of less than 0.1. His past medical history is also notable for multiple sclerosis with residual left lower extremity weakness but no recent flares. Past Medical History: Chronic Problems (Last Reviewed 09/24/17 @ 15:20 by Miguelina Saenz, JUAN LUIS-C) Adenocarcinoma of lung (Chronic) Hypertension (Chronic) 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) [facility] 07/03/17 Prostate cancer (Chronic) surgery , R.T. 2015 PSA relapse 2016 ADT Multiple sclerosis (Chronic) left leg weakness Past Medical/Surgical History: Past Medical History - Most Recent Inpatient Visit Past Medical History Start: 10/03/17 00: 07 Text: Status: Complete Freq: ONCE Protocol: Document 10/03/17 00:07 ARN (Rec: 10/03/17 00:29 ARN [id number]) BMI Required to complete PMH What is Patient's BMI 27.7 Past Medical History Unable History Recalled Yes Query Text:Pt Unable/Family Not Present Neurologic Medical History Hx Stroke/TIA No Hx Dementia/Alzheimer's No Hx Parkinson's Disease No Hx Seizures No Hx Multiple Sclerosis Yes: 25 YRS AGO HAD DX, BUT ANOTHER DR SAID NOT, Hx Migraines No Cardiac Medical History VTE Present on Admission Yes Hx of Deep Vein Thrombosis/VTE/PE No Hx Hypertension Yes: BP MED 5 YRS Hx Chest Pain/Angina No Hx Heart Attack No Hx Cardiac Surgery/Stents/Etc. No Hx Heart Failure No Hx Pacemaker/AICD No Hx Irregular Heartbeat and/or Afib No Hx Anticoagulant Therapy No Query Text:(Coumadin, Aspirin, Plavix, Xarelto, etc.) Hx Pain in Legs when Walking/Leg Cramps No Respiratory Medical History Hx COPD No Hx Emphysema No Hx Smoking No Smoking Status Former smoker Years Smoking 25 Packs Smoked per Day 2 Hx Smoking Cessation Counseling Yes Hx Smoking Exposure Yes Hx Tobacco Use in last 12 months No Hx of Pipe Smoking No Hx of Cigar Smoking Yes Hx Sleep Apnea No CPAP No BIPAP No Do you snore loudly (louder than talking No or can be heard through closed doors)? Do you often feel tired/ fatigued/ No sleepy during daytime? Has anyone observed you stop breathing No during sleep? STOP Results Negative GI Medical History Hx Ulcer Yes Hx Hepatitis No Hx Cirrhosis No Hx GI Bleed No Hx Unplanned Weight Loss No Genitourinary Medical History Indwelling Catheter in Place on Arrival/ No Admission Hx Renal Disease No Hx Dialysis No Musculoskeletal History Hx Arthritis No Hx Rheumatoid Arthritis No Endocrine Medical History Hx Diabetes No Hx Thyroid Disease No Hematologic Medical History Hx of Blood Transfusion No Hx of Transfusion in last 3 Months No Ever experience any problems with No transfusion(s)? Hx of Preganancy in last 3 Months N/A Nurse Filling Out Transfusion & ANORRIS Questions: Date: 10/03/17 Time: 00:29 Psycho/Social Medical History Hx Depression No Hx Anxiety No Hx Behavior Disorder No Hx Alcohol Use No Hx Substance Use No Other Medical History Hx Blood Disorders No Hx Anemia No Hx Cancer Yes: PROSTATE CANCER, BX 2014, LUNG CA Hx Drug Resistant Organism No Wound/Pressure Injury Present on Arrival No /Admission Query Text:If yes, chart assessment in Shift/Clinical Findings Central Line/PICC/VAD Present on Arrival No /Admission Antibiotics within last 7 days? No Methicillin Resistant Staphylococcus aureus Screening Active MRSA No Risk for Readmission Number of Risk Factors 3 At Risk for Readmission Patient is At Risk For Readmission Patient is eligible for Call Back Y Past Medical History (Last Reviewed 09/24/17 @ 15:20 by Miguelina Saenz NP-C) Viral pharyngitis (Acute) Nasopharyngitis (Acute) Limb weakness (Acute) unusual tierdness (Acute) Sinusitis (Acute) SOB (shortness of breath) (Acute) Dyspnea (Acute) Adenocarcinoma of lung (Chronic) Hyperlipidemia (Acute) Hypertension (Chronic) 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) LYMPH NODE REMOVAL-CHEST (Acute) Past Surgical History (Last Reviewed 09/24/17 @ 15:20 by Miguelina Saenz NP-C) History of prostatectomy (Acute) Maternal Family History: Family History (Last Reviewed 09/24/17 @ 15:20 by Miguelina Saenz NP-C) Father Prostate cancer Liver cancer Liver disease Mother Bone cancer Family History: - - Paternal Past Medical History: Liver disease Paternal History of Cancer: Liver cancer,Prostate cancer Maternal Past Medical History: Unknown Maternal History of Cancer: Bone cancer - Social History Lives: Spouse/ Significant Other Smoking Status: Former smoker Alcohol: None Drugs: None Allergies/Adverse Reactions: Allergy/AdvReac Type Severity Reaction Status Date / Time morphine AdvReac MAKES HIS Verified 10/02/17 19:55 NAUSEATED AND SICK Home Medications Medication Instructions Recorded Folic Acid 1 mg PO DAILY@0800 #30 tab 09/15/17 Losartan Potassium 50 mg PO DAILY 10/02/17 Lupron Depot 10/02/17 Enoxaparin [Lovenox] 80 mg SC Q12@0600,1800 #60 syringe 10/03/17 Review of Systems Constitutional:: Denies: Fever, Sweats, Weight loss, Appetite change, Chills Cardiovascular:: Denies: Chest pain, Palpitations, Dyspnea on exertion, Orthopnea, PND, Shortness of breath Respiratory: Denies: Cough, Hemoptysis, Shortness of Breath, Wheezing Gastrointestinal:: Denies: Abdominal pain, Nausea, Vomiting, Diarrhea, Constipation, Hematochezia Genitourinary: Denies: Dysuria, Hematuria, 15, Flank pain Musculoskeletal:: Denies: Back pain, Myalgia, Arthralgia Skin: Denies: Rash, Skin Changes, Wounds Neurological:: Denies: Headache, Dizziness, Numbness, Tingling, Visual changes, Tinnitus, Hearing loss Psychiatric: Denies: Anxiety, Depression, Homicidal Ideations, Suicidal Ideations Vital Signs Height 5 ft 10 in Weight: 187 lb 2.759 oz Weight in Pounds 187.2 lbs Pulse Ox 97 Temperature 98.6 F Pulse Rate 80 Respiratory Rate 16 Blood Pressure [2nd BP] 166/95 Blood Pressure 131/80 Blood Pressure Position [2nd Semi-Fowlers BP] Blood Pressure Position Semi-Fowlers - Physical Exam General: Alert, Oriented x3, No apparent distress HEENT: Atraumatic, Normocephalic Oropharynx:: Negative for: Dry mucosa, Ulcerated lesions Neck:: Supple, Trachea midline. Negative for: JVD, bilateral Cardiac:: Regular rate, Regular rhythm, Normal S1, Normal S2. Negative for: Murmur Lungs: Clear to auscultation, Excusion symmetrical. Negative for: Rhonchi, Wheezes Abdomen:: Bowel sounds x 4, Soft, Non-tender, Non-distended. Negative for: Hepatosplenomegaly Extremities:: Negative for: Cyanosis, Edema, Calf tenderness - R calf pain resolved Neurological: Neuro grossly intact Skin:: Negative for: Lesions, Rash, Petechiae, Ecchymosis Psychiatric:: Depressed affect Lymphatics:: Negative for: Cervical lymphadenopathy, Supraclavicular lymphadenopathy, Axillary lymphadenopathy Laboratory Data: Microbiology 10/03/17 10:35 Streptococcus pneumoniae Antigen (M - Final Urine, Clean Catch 10/03/17 10:35 Legionella Antigen - Final Urine, Clean Catch Laboratory Tests 3 10/04/17 10/03/17 10/03/17 Range/Units 05:47 21:50 04:26 WBC 6.5 (4.4-11.0) K/mm3 RBC 3.14 L (4.6-6.2) M/mm3 Hgb 9.2 L (13.0-16.5) g/dl Hct 28.3 L (40-54) % MCV 90.1 (80-94) fL MCH 29.3 (27.0-32.0) pg MCHC 32.5 (32-36) g/gl RDW 13.8 (11.6-14.6) % RDW Differential 46.0 H (35.1-43.9) fl Plt Count 235 (150-450) K/mm3 MPV 9.1 (6.2-12.0) fl Immature Gran % (Auto) 0.600 (0.0-0.9) % Neut % (Auto) 74.3 H (47-70) % Lymph % (Auto) 10.4 L (19-41) % [place] % (Auto) 10.5 H (0-10) % Eos % (Auto) 3.9 (0-5) % Baso % (Auto) 0.3 (0-1) % Absolute Neuts (auto) 4.8 (2.0-7.7) X10^3/uL Absolute Lymphs (auto) 0.67 L (0.83-4.51) X10^3/ul Total Counted Not Reportable Phosphorus 3.4 (2.5-4.9) mg/dL Magnesium 2.3 (1.6-2.6) mg/dL MRSA (PCR) Negative (Negative) Diagnostic Data: Diagnostic Data Chest CTA 10/02/17 20:06 IMPRESSION: Bilateral pulmonary emboli. There is no saddle embolus. Left lower lobe infiltrate suggesting pneumonia. Small right pleural effusion. Moderate left pleural effusion. N.B. : The above information has been verbally conveyed by Antonio Hamlin MD to Danyel Cai on 10/02/2017 23:07:39 (ET). Electronically Signed: Antonio Hamlin MD at 21:46 EST , Service support , N.B. : The above information has been verbally conveyed by Antonio Hamlin MD to Danyel Cai on 10/02/2017 23:07:39 (ET). Chest X-Ray 10/02/17 20:30 IMPRESSION: Scarring or small left pleural effusion. Electronically Signed: Antonio Hamlin MD at 21:28 EST , Service support , Assessment and Plan The patient is a 66 y/o M w/ PMHx: HTN, HLD, Prostate cancer s/p radical prostatectomy followed by adjuvant radiation therapy 2014 followed by ADT since 2015 due to PSA relapse, Chronic Residual LLE weakness following Remote attack with Multiple Sclerosis, Non-small adenocarcinoma cell lung cancer, stage IIB ( T2b, N1, M0) status post LLL lobectomy and lymph node dissection [facility] July 03, 2017 with R0 resection who presents to the [facility] ED on 10/03/17 with dyspnea x 2 weeks. 1- Stage IIB (T2b, N1, M0) Non-small cell adenocarcinoma of the left lung- s/p LLL lobectomy and lymph node dissection at [facility] July 03, 2017. Will evaluate in clinic on 10/06/17 as previously planned. Certainly not having a port will not preclude him from initiating chemotherapy timely, although will allow flexibility given the context of adjuvant therapy. 2- Acute VTE by way of bilateral Pulmonary Embolism and bilateral lower extremity DVTs- confirmed with CTA demonstrating BL PE, no saddle embolus, LL infiltrate, small R pleural effusion and moderate L pleural effusion. Low molecular weight heparin (Lovenox) is the agent of choice due to proven superiority to Coumadin and prevention of recurrent VTE. Although, if needed can transition to oral anticoagulant d/t patient's concern r/t cost of Lovenox. Will discuss 10/06/17. Spouse is willing to administer SQ injections. 3- Prostate cancer: s/p radical prostatectomy, followed by adjuvant radiation therapy 2014 followed by ADT since 2015 due to PSA relapse, unclear lupron dose , medication rec pending. 4- Dyspnea also secondary to concurrently noted HCAP Pneumonia- Defer management to primary team Corina Holbrook, JONATHAN, NOTE SPECIALIST-C, AOCNP Medications: Prescriptions This Visit Medication Instructions Recorded Losartan Potassium 50 mg PO DAILY 10/02/17 Lupron Depot 10/02/17 Enoxaparin [Lovenox] 80 mg SC Q12@0600,1800 #60 syringe 10/03/17 Medications Added to Medication List This Visit Category Date Time Status Ensure Enlive Med 10/04/17 10:00 Active 120 ml PO 4X/DAY Primary Care Provider: Doron Vernon Referring Provider: - Problem List (1) Pulmonary embolism Status: Acute Qualifiers: Pulmonary embolism type: other Chronicity: acute Acute cor pulmonale presence: without acute cor pulmonale Qualified Code(s): I26.99 - Other pulmonary embolism without acute cor pulmonale (2) Cancer of lower lobe of left lung Status: Acute (3) Prostate cancer Status: Chronic Comment: surgery , R.T. 2015 PSA relapse 2016 ADT (4) HCAP (healthcare-associated pneumonia) Status: Acute
[2017-10-04 08:14] LABS: Anion Gap 9 (5-15); BUN 10 mg/dL (7-18); BUN/Creat Ratio 10.8 RATIO (10-20); Calcium,Total 8.3 mg/dL (8.5-10.1); Chloride 107 mmol/L (98-107); Creatinine, Serum 0.92 mg/dL (0.70-1.30); EST Glomerular Filtration Rate 87 mL/min (>60); Est Glom Filt Rate - Afr Amer 106 mL/min (>60); Estimated Creatinine Clearance 83.76 ml/min; Glucose 89 mg/dL (74-106); Potassium 4.1 mmol/L (3.5-5.1); Sodium Level 140 mmol/L (136-145)
[2017-10-04] MEDS: Folic Acid 1 MG Tablet PO (08:17)
[2017-10-04 09:06] VITALS: BP 140/79; PULSE 92; RESP 16; TEMP 37.1; O2SAT 98
--- NOTE | 2017-10-04 10:24 | PCM.DC ---
- Discharge Diagnoses Current Active Problems: Current Active and Chronic Problems (Last Reviewed 09/24/17 @ 15:20 by Miguelina Saenz NP-Kriss) Pulmonary embolism (Acute) HCAP (healthcare-associated pneumonia) (Acute) (1) Dyspnea secondary to Acute BL Pulmonary Embolism, HCAP (see #2) (2) Dyspnea also secondary to concurrently noted HCAP Pneumonia (3) Prostate cancer s/p radical prostatectomy (4) Non-small adenocarcinoma cell lung cancer (5) Multiple Sclerosis (6) Hypertension (7) Hyperlipidemia (8) GERD You will use the following diet at home:: Cardiac Your food should be the consistency of: Regular Your liquids should be the consistency of: Regular/Thin Discharge Activity: - - Avoid aggressive activity until re-evaluation per Hem/Onc, your PCP and also Pulmonary Medicine. May resume sexual activity in: 1-2 weeks Weight Bearing Status: Weight bearing as tolerated Call your doctor if you observe: Fever of 101 or Higher, Inability to urinate, Inability to have a bowel movement, Shortness of breath, Dizziness, Fainting spells, Chest pain, Uncontrolled pain Instructions: What Is Pneumonia?, Preventing Pneumonia, Pneumonia Treatment, Discharge Instructions for Pulmonary Embolism, Pulmonary Embolism, Apixaban Oral tablet Additional Instructions: Please follow-up with Hem/Oncology to review recent admission, plan for future chemotherapy and re-scheduling of port placement. Please have repeat CBC and BMP with your PCP at follow-up. Allergies/Adverse Reactions: Allergies morphine Adverse Reaction (Verified 10/02/17 19:55) MAKES HIS NAUSEATED AND SICK Medications to take at Discharge Folic Acid 1 mg PO DAILY@0800 #30 tab 09/15/17 Losartan Potassium 50 mg PO DAILY 10/02/17 Lupron Depot 10/02/17 Albuterol IH (ProAir) [Proair Hfa] 1 - 2 puff INHALATION Q4H PRN PRN #1 inhaler 10/04/17 Apixaban [Eliquis] 5 mg PO BID #60 tab.ds.pk 10/04/17 Apixaban [Eliquis] 10 mg PO BID #14 tab 10/04/17 Famotidine [Pepcid] 20 mg PO BID #60 tab 10/04/17 Levofloxacin [Levaquin] 750 mg PO DAILY #6 tab 10/04/17 The following prescriptions were given: Albuterol IH (ProAir) [Proair Hfa] 1 - 2 puff INHALATION Q4H PRN PRN #1 inhaler PRN Reason: dyspnea, wheezing Levofloxacin [Levaquin] 750 mg PO DAILY #6 tab Apixaban [Eliquis] 10 mg PO BID #14 tab Apixaban [Eliquis] 5 mg PO BID #60 tab.ds.pk Famotidine [Pepcid] 20 mg PO BID #60 tab Primary Care Physician: Fernando Mock, [NON-STAFF] - Please follow up with your Primary Care Physician in: Follow-up 3-5 days with PCP. Please Follow Up With: Dago Leger MD When: Follow-up 10/06/17 as already arranged. Please Follow Up With: Tavon Mullen MD When: Follow-up within 1-2 weeks, may see SURGICAL GARMENT FITTER to discuss admission. Please Follow Up With: Fritz Valencia MD When: Contact office to discuss re-arranging port placement date. Proposed Discharge Date: 10/04/17
--- NOTE | 2017-10-04 10:34 | DCINST_ITS ---
- Discharge Diagnoses Current Active Problems: Current Active and Chronic Problems (Last Reviewed 09/24/17 @ 15:20 by Miguelina Saenz NP-Kriss) Pulmonary embolism (Acute) HCAP (healthcare-associated pneumonia) (Acute) (1) Dyspnea secondary to Acute BL Pulmonary Embolism, HCAP (see #2) (2) Dyspnea also secondary to concurrently noted HCAP Pneumonia (3) Prostate cancer s/p radical prostatectomy (4) Non-small adenocarcinoma cell lung cancer (5) Multiple Sclerosis (6) Hypertension (7) Hyperlipidemia (8) GERD You will use the following diet at home:: Cardiac Your food should be the consistency of: Regular Your liquids should be the consistency of: Regular/Thin Discharge Activity: - - Avoid aggressive activity until re-evaluation per Hem/ Onc, your PCP and also Pulmonary Medicine. May resume sexual activity in: 1-2 weeks Weight Bearing Status: Weight bearing as tolerated Call your doctor if you observe: Fever of 101 or Higher, Inability to urinate, Inability to have a bowel movement, Shortness of breath, Dizziness, Fainting spells, Chest pain, Uncontrolled pain Instructions: What Is Pneumonia?, Preventing Pneumonia, Pneumonia Treatment, Discharge Instructions for Pulmonary Embolism, Pulmonary Embolism, Apixaban Oral tablet Additional Instructions: Please follow-up with Hem/Oncology to review recent admission, plan for future chemotherapy and re-scheduling of port placement. Please have repeat CBC and BMP with your PCP at follow-up. Allergies/Adverse Reactions: Allergies morphine Adverse Reaction (Verified 10/02/17 19:55) MAKES HIS NAUSEATED AND SICK Medications to take at Discharge Folic Acid 1 mg PO DAILY@0800 #30 tab 09/15/17 Losartan Potassium 50 mg PO DAILY 10/02/17 Lupron Depot 10/02/17 Albuterol IH (ProAir) [Proair Hfa] 1 - 2 puff INHALATION Q4H PRN PRN #1 inhaler 10/04/17 Apixaban [Eliquis] 5 mg PO BID #60 tab.ds.pk 10/04/17 Apixaban [Eliquis] 10 mg PO BID #14 tab 10/04/17 Famotidine [Pepcid] 20 mg PO BID #60 tab 10/04/17 Levofloxacin [Levaquin] 750 mg PO DAILY #6 tab 10/04/17 The following prescriptions were given: Albuterol IH (ProAir) [Proair Hfa] 1 - 2 puff INHALATION Q4H PRN PRN #1 inhaler PRN Reason: dyspnea, wheezing Levofloxacin [Levaquin] 750 mg PO DAILY #6 tab Apixaban [Eliquis] 10 mg PO BID #14 tab Apixaban [Eliquis] 5 mg PO BID #60 tab.ds.pk Famotidine [Pepcid] 20 mg PO BID #60 tab Primary Care Physician: Fernando Mock, [NON-STAFF] - Please follow up with your Primary Care Physician in: Follow-up 3-5 days with PCP. Please Follow Up With: Dago Leger MD When: Follow-up 10/06/17 as already arranged. Please Follow Up With: Tavon Mullen MD When: Follow-up within 1-2 weeks, may see GAS TREATER to discuss admission. Please Follow Up With: Fritz Valencia MD When: Contact office to discuss re-arranging port placement date. Proposed Discharge Date: 10/04/17
--- NOTE | 2017-10-04 10:37 | PCM.DC.SUM ---
Discharge Date and Diagnosis - Problem List Patient Problems: Active and Suspected Problems (Last Reviewed 09/24/17 @ 15:20 by HAI Zamora) Pulmonary embolism (Acute) HCAP (healthcare-associated pneumonia) (Acute) Date of Admission: 10/02/17 Date of Discharge: 10/04/17 - Primary Discharge Diagnosis Active and Suspected Problems (Last Reviewed 09/24/17 @ 15:20 by HAI Zamora) (1) Dyspnea secondary to Acute BL Pulmonary Embolism, HCAP (see #2) (2) Dyspnea also secondary to concurrently noted HCAP Pneumonia (3) Prostate cancer (4) Non-small adenocarcinoma cell lung cancer (5) Multiple Sclerosis (6) Hypertension (7) Hyperlipidemia (8) GERD - Secondary Discharge Diagnosis Chronic Problems (Last Reviewed 09/24/17 @ 15:20 by HAI Zamora) Adenocarcinoma of lung (Chronic) Hypertension (Chronic) 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 2014 PSA relapse 2016 ADT Multiple sclerosis (Chronic) left leg weakness Hospital Course and Treatment Dr. Leger Hem/Onc Evaluated per JUAN LUIS Holbrook Operations: None Procedures: EKG Summary of Care Provided: The patient is a 66 y/o M w/ PMHx: HTN, HLD, Prostate cancer s/p radical prostatectomy followed by adjuvant radiation therapy 2014 followed by ADT since 2015 due to PSA relapse, Chronic Residual LLE weakness following Remote attack with Multiple Sclerosis, Non-small adenocarcinoma cell lung cancer, stage IIB (T2b, N1, M0) status post LLL lobectomy and lymph node dissection [facility] July 03, 2017 with R0 resection who presented to the [facility] ED on 10/03/17 with dyspnea x 2 weeks. EKG without acute findings, CXR no acute process w/ chronic changes, ? L pleural effusion, CTPA with BL PE, no addle embolus, LL infiltrate, small R pleural effusion, moderate L pleural effusion, CBC w/ WBC 10.2, Hgb 10.5, Plts 207 with L shift, chemistry w/ K 3.3 and glucose 114 otherwise not marked, trop x 1 normal. Admitted to the PCU, maintained on cardiac telemetry, BNP 114.6, ECHO w/ EF 65%, stage II diastolic dysfunction, moderate TV insufficiency, RVSP 60 mmHg consistent with severe pulmonary hypertension, normal RV and systolic function, BL LE DVT US + BL per preliminary read, final read pending. In the ED initiated on heparin drip. Given acute BL PE in the setting of known cancer, per recommendations based on CLOT trial and superiority of injectable anticoagulation compared to PO anticoagulation with pts with active malignancy and thrombosis transitioned to therapeutic lovenox regimen; however, cost assessment prohibitive, thus per CLOT trial investigated cost options of new oral anticoagulants with notable affordability of eliquis therefore patient transitioned to eliquis regimen. During admission, patient clinically improved quickly, ambulated on room air with resolution of dyspnea complaint, maintained on ATC duonebs, PRN albuterol, maintained on IV Zosyn and Levaquin w/ negative MRSA assessment-->de-escalated to Levaquin continued upon discharge with negative urine antigens, sputum cx not obtained. Given Non-small adenocarcinoma cell lung cancer, noted stage IIB (T2b, N1, M0) s/p LLL lobectomy and lymph node dissection [facility] July 03, 2017 with R0 resection following w/ Dr. Mullen, Dr. Leger outpatient contacted their office and patient evaluated per APARTMENT LEASING MANAGER with plan for follow-up as previously arranged. In addition given planned port placement 10/05/17, updated Dr. Valencia and intervention was deferred given acute infection and BL PE. Patient discharged to home in stable condition with follow-up with PCP, Pulmonary, Hem/Onc and Surgery Dr. Valencia to discuss future port placement possibilities. DAY OF DISCHARGE PROGRESS NOTE: Subjective: Patient without acute event overnight per self and nursing report. Patient notes breathing has markedly improved, he has been up and walking in the [place], not short of breath, no chest pain and notes LE discomfort is resolving also. Patient denies fever, chills, nausea, emesis, abdominal pain. Patient agreeable to discharge to home on oral newer anticoagulant medications secondary to cost of lovenox. Patient will be discharged with follow-up with primary care physician within 3-5 days in addition to Pulmonary, Hem/Onc and Surgery. Objective: T 98.7, HR 92, BP 140/79, RR 16, 98% on RA. Physical Examination: General: awake, alert, oriented x 3 and cooperative, seated upright in bed in no apparent distress. Skin: normal color, turgor, no icterus, cyanosis. HEENT: AT/NC, EOMI, PERRLA, MMM. Lungs: Improved BS, less diminished BS, > bases, not coarse, no rales, ronchi or wheezing. Heart: Regular rate and rhythm; no gallop, rub audible. Abdomen: soft, NTTP, ND, normal BS. Extremities: no cyanosis, clubbing, RLE s/p several toe amputations, minimal R>L mild non-pitting edema, less BL TTP palpation R calf/posterior knee region. Neurological: patient awake, alert, oriented x 3; cognitive function intact; pupils equally reactive to light and accomodation; cranial nerves II-XII grossly normal, moving all 4 extremities, no focal deficits, strength improved, walking the halls, mildly globally decreased. Psychiatric: affect appears normal, no acute evidence of depressive or anxiety feelings. Assessment and Plan: Please see hospital summary above. Discharge Activity: - - Avoid aggressive activity until re-evaluation per Hem/Onc, your PCP and also Pulmonary Medicine. May resume sexual activity in: 1-2 weeks Weight Bearing Status: Weight bearing as tolerated Call your doctor if you observe: Fever of 101 or Higher, Inability to urinate, Inability to have a bowel movement, Shortness of breath, Dizziness, Fainting spells, Chest pain, Uncontrolled pain Home Medications: Medications to take at Discharge Folic Acid 1 mg PO DAILY@0800 #30 tab 09/15/17 Losartan Potassium 50 mg PO DAILY 10/02/17 Lupron Depot 10/02/17 Albuterol IH (ProAir) [Proair Hfa] 1 - 2 puff INHALATION Q4H PRN PRN #1 inhaler 10/04/17 Apixaban [Eliquis] 5 mg PO BID #60 tab.ds.pk 10/04/17 Apixaban [Eliquis] 10 mg PO BID #14 tab 10/04/17 Famotidine [Pepcid] 20 mg PO BID #60 tab 10/04/17 Levofloxacin [Levaquin] 750 mg PO DAILY #6 tab 10/04/17 Following Prescrptions Were Given to Patient: Albuterol IH (ProAir) [Proair Hfa] 1 - 2 puff INHALATION Q4H PRN PRN #1 inhaler PRN Reason: dyspnea, wheezing Levofloxacin [Levaquin] 750 mg PO DAILY #6 tab Apixaban [Eliquis] 10 mg PO BID #14 tab Apixaban [Eliquis] 5 mg PO BID #60 tab.ds.pk Famotidine [Pepcid] 20 mg PO BID #60 tab Primary Care Physician: Fernando Mock DO [NON-STAFF] - Please follow up with your Primary Care Physician in: Follow-up 3-5 days with PCP. Please Follow Up With: Dago Leger MD When: Follow-up 10/06/17 as already arranged. Please Follow Up With: Tavon Mullen MD When: Follow-up within 1-2 weeks, may see APARTMENT LEASING MANAGER to discuss admission. Please Follow Up With: Fritz Valencia MD When: Contact office to discuss re-arranging port placement date. Patient Instructions: Apixaban Oral tablet, Pulmonary Embolism, What Is Pneumonia?, Preventing Pneumonia, Pneumonia Treatment, Discharge Instructions for Pulmonary Embolism Disposition: Home Minutes spent on discharge:: 35 Patient Condition:: Fair Meaningful Use Info Meaningful Use Diagnoses (Choose all that apply): VTE - VTE Anticoag overlap given w/in hospital stay or rx'd at dc?: No Pt receive overlap for 5 days?: No Reason overlap not ordered, prescribed, or given for 5 days: Treatment Not Indicated - Going on eliquis. Code Visit Inpatient E&M: 86354 Disch Hosp
--- NOTE | 2017-10-04 10:45 | DS.PCM_ITS ---
Discharge Date and Diagnosis - Problem List Patient Problems: Active and Suspected Problems (Last Reviewed 09/24/17 @ 15:20 by HAI Zamora) Pulmonary embolism (Acute) HCAP (healthcare-associated pneumonia) (Acute) Date of Admission: 10/02/17 Date of Discharge: 10/04/17 - Primary Discharge Diagnosis Active and Suspected Problems (Last Reviewed 09/24/17 @ 15:20 by HAI Zamora) (1) Dyspnea secondary to Acute BL Pulmonary Embolism, HCAP (see #2) (2) Dyspnea also secondary to concurrently noted HCAP Pneumonia (3) Prostate cancer (4) Non-small adenocarcinoma cell lung cancer (5) Multiple Sclerosis (6) Hypertension (7) Hyperlipidemia (8) GERD - Secondary Discharge Diagnosis Chronic Problems (Last Reviewed 09/24/17 @ 15:20 by HAI Zamora) Adenocarcinoma of lung (Chronic) Hypertension (Chronic) 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 2014 PSA relapse 2016 ADT Multiple sclerosis (Chronic) left leg weakness Hospital Course and Treatment Dr. Leger Hem/Onc Evaluated per JUAN LUIS Holbrook Operations: None Procedures: EKG Summary of Care Provided: The patient is a 66 y/o M w/ PMHx: HTN, HLD, Prostate cancer s/p radical prostatectomy followed by adjuvant radiation therapy 2014 followed by ADT since 2015 due to PSA relapse, Chronic Residual LLE weakness following Remote attack with Multiple Sclerosis, Non-small adenocarcinoma cell lung cancer, stage IIB ( T2b, N1, M0) status post LLL lobectomy and lymph node dissection [facility] July 03, 2017 with R0 resection who presented to the [facility] ED on 10/03/17 with dyspnea x 2 weeks. EKG without acute findings, CXR no acute process w/ chronic changes, ? L pleural effusion, CTPA with BL PE, no addle embolus, LL infiltrate, small R pleural effusion, moderate L pleural effusion, CBC w/ WBC 10.2, Hgb 10.5, Plts 207 with L shift, chemistry w/ K 3.3 and glucose 114 otherwise not marked, trop x 1 normal. Admitted to the PCU, maintained on cardiac telemetry, BNP 114.6, ECHO w/ EF 65%, stage II diastolic dysfunction, moderate TV insufficiency, RVSP 60 mmHg consistent with severe pulmonary hypertension, normal RV and systolic function, BL LE DVT US + BL per preliminary read, final read pending. In the ED initiated on heparin drip. Given acute BL PE in the setting of known cancer, per recommendations based on CLOT trial and superiority of injectable anticoagulation compared to PO anticoagulation with pts with active malignancy and thrombosis transitioned to therapeutic lovenox regimen; however, cost assessment prohibitive, thus per CLOT trial investigated cost options of new oral anticoagulants with notable affordability of eliquis therefore patient transitioned to eliquis regimen. During admission, patient clinically improved quickly, ambulated on room air with resolution of dyspnea complaint, maintained on ATC duonebs, PRN albuterol, maintained on IV Zosyn and Levaquin w/ negative MRSA assessment-->de-escalated to Levaquin continued upon discharge with negative urine antigens, sputum cx not obtained. Given Non-small adenocarcinoma cell lung cancer, noted stage IIB ( T2b, N1, M0) s/p LLL lobectomy and lymph node dissection [facility] July 03, 2017 with R0 resection following w/ Dr. Mullen, Dr. Leger outpatient contacted their office and patient evaluated per ANALYTICAL SCIENCES DIRECTOR with plan for follow-up as previously arranged. In addition given planned port placement , updated Dr. Valencia and intervention was deferred given acute infection and BL PE. Patient discharged to home in stable condition with follow-up with PCP, Pulmonary, Hem/Onc and Surgery Dr. Valencia to discuss future port placement possibilities. DAY OF DISCHARGE PROGRESS NOTE: Subjective: Patient without acute event overnight per self and nursing report. Patient notes breathing has markedly improved, he has been up and walking in the [place], not short of breath, no chest pain and notes LE discomfort is resolving also. Patient denies fever, chills, nausea, emesis, abdominal pain. Patient agreeable to discharge to home on oral newer anticoagulant medications secondary to cost of lovenox. Patient will be discharged with follow-up with primary care physician within 3-5 days in addition to Pulmonary, Hem/Onc and Surgery. Objective: T 98.7, HR 92, BP 140/79, RR 16, 98% on RA. Physical Examination: General: awake, alert, oriented x 3 and cooperative, seated upright in bed in no apparent distress. Skin: normal color, turgor, no icterus, cyanosis. HEENT: AT/NC, EOMI, PERRLA, MMM. Lungs: Improved BS, less diminished BS, > bases, not coarse, no rales, ronchi or wheezing. Heart: Regular rate and rhythm; no gallop, rub audible. Abdomen: soft, NTTP, ND, normal BS. Extremities: no cyanosis, clubbing, RLE s/p several toe amputations, minimal R> L mild non-pitting edema, less BL TTP palpation R calf/posterior knee region. Neurological: patient awake, alert, oriented x 3; cognitive function intact; pupils equally reactive to light and accomodation; cranial nerves II-XII grossly normal, moving all 4 extremities, no focal deficits, strength improved, walking the halls, mildly globally decreased. Psychiatric: affect appears normal, no acute evidence of depressive or anxiety feelings. Assessment and Plan: Please see hospital summary above. Discharge Activity: - - Avoid aggressive activity until re-evaluation per Hem/ Onc, your PCP and also Pulmonary Medicine. May resume sexual activity in: 1-2 weeks Weight Bearing Status: Weight bearing as tolerated Call your doctor if you observe: Fever of 101 or Higher, Inability to urinate, Inability to have a bowel movement, Shortness of breath, Dizziness, Fainting spells, Chest pain, Uncontrolled pain Home Medications: Medications to take at Discharge Folic Acid 1 mg PO DAILY@0800 #30 tab 09/15/17 Losartan Potassium 50 mg PO DAILY 10/02/17 Lupron Depot 10/02/17 Albuterol IH (ProAir) [Proair Hfa] 1 - 2 puff INHALATION Q4H PRN PRN #1 inhaler 10/04/17 Apixaban [Eliquis] 5 mg PO BID #60 tab.ds.pk 10/04/17 Apixaban [Eliquis] 10 mg PO BID #14 tab 10/04/17 Famotidine [Pepcid] 20 mg PO BID #60 tab 10/04/17 Levofloxacin [Levaquin] 750 mg PO DAILY #6 tab 10/04/17 Following Prescrptions Were Given to Patient: Albuterol IH (ProAir) [Proair Hfa] 1 - 2 puff INHALATION Q4H PRN PRN #1 inhaler PRN Reason: dyspnea, wheezing Levofloxacin [Levaquin] 750 mg PO DAILY #6 tab Apixaban [Eliquis] 10 mg PO BID #14 tab Apixaban [Eliquis] 5 mg PO BID #60 tab.ds.pk Famotidine [Pepcid] 20 mg PO BID #60 tab Primary Care Physician: Fernando Mock DO [NON-STAFF] - Please follow up with your Primary Care Physician in: Follow-up 3-5 days with PCP. Please Follow Up With: Dago Leger MD When: Follow-up 10/06/17 as already arranged. Please Follow Up With: Tavon Mullen MD When: Follow-up within 1-2 weeks, may see ANALYTICAL SCIENCES DIRECTOR to discuss admission. Please Follow Up With: Fritz Valencia MD When: Contact office to discuss re-arranging port placement date. Patient Instructions: Apixaban Oral tablet, Pulmonary Embolism, What Is Pneumonia?, Preventing Pneumonia, Pneumonia Treatment, Discharge Instructions for Pulmonary Embolism Disposition: Home Minutes spent on discharge:: 35 Patient Condition:: Fair Meaningful Use Info Meaningful Use Diagnoses (Choose all that apply): VTE - VTE Anticoag overlap given w/in hospital stay or rx'd at dc?: No Pt receive overlap for 5 days?: No Reason overlap not ordered, prescribed, or given for 5 days: Treatment Not Indicated - Going on eliquis. Code Visit Inpatient E&M: 50804 Disch Hosp
[2017-10-04] MEDS: Losartan Potassium 50 MG Tablet PO (10:56)
[2017-10-04] MEDS: Famotidine 20 MG Tablet PO (10:56)
[2017-10-04 11:25] VITALS: PULSE 107
== END 2017-10-04 15:58 | disposition home or self-care (01) | DRG 175 ==
LOC: ED 22:02 → PCU 23:28
PROVIDERS: Admitting Provider Internal Medicine; Emergency Provider Emergency Medicine; Family Provider Preventive Medicine Occupational Medicine; PCP Preventive Medicine Occupational Medicine; Visit Provider Family Medicine
DX: I26.99 Other pulmonary embolism without acute cor pulmonale (principal); J18.9 Pneumonia, unspecified organism; C34.92 Malignant neoplasm of unspecified part of left bronchus or lung; I82.403 Acute embolism and thrombosis of unspecified deep veins of lower extremity, bilateral; G35 Multiple sclerosis; Z90.2 Acquired absence of lung [part of]; Z90.79 Acquired absence of other genital organ(s); Z92.3 Personal history of irradiation; Z87.891 Personal history of nicotine dependence; E87.6 Hypokalemia; I10 Essential (primary) hypertension; Y95 Nosocomial condition; E78.5 Hyperlipidemia, unspecified; K21.9 Gastro-esophageal reflux disease without esophagitis; C61 Malignant neoplasm of prostate
CPT/HCPCS: 36415; 71045; 71275; 80048; 83735; 83880; 84100; 84484; 85025; 85027; 85610; 85730; 87040; 87449; 87641; 93005; 93306; 93970; 94640; 97802; 99284; J7030; Q9967; A4216

== ENCOUNTER → 2017-11-03 13:38 | Outpatient (CLI) | payer MEDICARE, OTHER, SELFPAY | PROVIDERS: Family Provider Family Medicine; PCP Family Medicine; Visit Provider Surgery | DX: Z00.00 Encounter for general adult medical examination without abnormal findings (principal) ==

== ENCOUNTER → 2018-01-14 09:48 | Outpatient (CLI) | payer MEDICARE, OTHER, SELFPAY ==
[2018-01-14 10:45] LABS: PSA,Total- Diagnostic < 0.01 ng/mL (0.0-4.0)
== END ==
PROVIDERS: Family Provider Family Medicine; PCP Family Medicine
DX: C61 Malignant neoplasm of prostate (principal)
CPT/HCPCS: 84153

== ENCOUNTER → 2018-02-04 07:52 | Outpatient (CLI) | payer MEDICARE, OTHER, SELFPAY ==
--- NOTE | 2018-02-04 11:37 | PFT ---
INTRODUCTION: The patient is a 67-year-old male that presents for pulmonary function testing secondary to a diagnosis of shortness of breath. Respiratory therapy reports good patient effort. Bronchodilators were used during testing. INTERPRETATION: Forced expiration spirometry demonstrates no evidence of a large airways obstructive ventilatory defect. There was no significant response to aerosolized bronchodilators. Spirograms are of good quality and plateau gradually. Body plethysmography was performed and reveals a decreased TLC to 5.59 L, 79% of predicted, indicative of a mild restrictive ventilatory impairment. The remainder of the lung volumes are symmetrically reduced. Diffusing capacity by single breath CO is moderately reduced at 49% of predicted. When compared to previous pulmonary function studies dated May 2017, there has been symmetric reductions in FEV1 and FVC. TLC has decreased by 12%. DLCO is decreased by 20%. IMPRESSION: These pulmonary function studies demonstrate the presence of a mild restrictive ventilatory impairment with a disproportionate reduction in diffusing capacity. There has been worsening in the patient's PFTs since they were last completed in May 2017. Clinical correlation is recommended.
== END ==
PROVIDERS: Family Provider Preventive Medicine Occupational Medicine; PCP Preventive Medicine Occupational Medicine; Visit Provider Internal Medicine Critical Care Medicine
DX: C34.92 Malignant neoplasm of unspecified part of left bronchus or lung (principal); R06.02 Shortness of breath
CPT/HCPCS: 94060; 94726; 94729

== ENCOUNTER → 2018-02-05 08:53 | Outpatient (CLI) | payer MEDICARE, OTHER, SELFPAY ==
[2018-02-05 09:00] VITALS: PULSE 66; PULSE 69; PULSE 79; PULSE 86; PULSE 88; PULSE 90; O2SAT 94; O2SAT 95; O2SAT 96; O2SAT 97; O2SAT 98; O2SAT 99
--- NOTE | 2018-02-08 10:16 | PCM.PSN.6M ---
PSN 6 Minute Walk Test - 6 Minute Walk Test 6 Minute Walk Test: 6 Minute Walk Test PSN:6-Minute Walk Test Start: 02/05/18 10:33 Freq: Status: Active Protocol: RESP.6MINW [place] 02[place]05/18 09[place] [facility] [place] 02[place]05/18 10[place]38 [facility] [id number] 6 Minute Walk Test Date Performed 02/05/18 Time Performed 09:00 Height 5 ft 10 in Weight: 200 lb Weight in Pounds 200.[address]: Tavon Mullen Assistive device used: None Pre-test Oxygen Delivery Method Room Air Pulse Ox (%) 99 Pulse Rate (60-100 beats/min) 66 Dyspnea Nahed Scale (0-10) 0.5 Exertion Nahed Scale (6-20) 6 1st minute Oxygen Delivery Method Room Air Pulse Ox (%) 99 Pulse Rate (60-100 beats/min) 79 Number of Rests Taken 0 2nd minute Oxygen Delivery Method Room Air Pulse Ox (%) 98 Pulse Rate (60-100 beats/min) 86 Number of Rests Taken 0 3rd minute Oxygen Delivery Method Room Air Pulse Ox (%) 95 Pulse Rate (60-100 beats/min) 86 Number of Rests Taken 0 4th minute Oxygen Delivery Method Room Air Pulse Ox (%) 94 Pulse Rate (60-100 beats/min) 90 Number of Rests Taken 0 5th minute Oxygen Delivery Method Room Air Pulse Ox (%) 96 Pulse Rate (60-100 beats/min) 88 Number of Rests Taken 0 6th minute Oxygen Delivery Method Room Air Pulse Ox (%) 97 Pulse Rate (60-100 beats/min) 86 Number of Rests Taken 0 Post-test Oxygen Delivery Method Room Air Pulse Ox (%) 99 Pulse Rate (60-100 beats/min) 69 Dyspnea Nahed Scale (0-10) 2 Exertion Nahed Scale (6-20) 12 Number of Rests Taken 0 Full Laps Walked 14 Partial Lap, Number of Tiles Walked 30 Total Distance Walked (ft) 856 - Interpretation Interpretation: The patient ambulated 856 feet over the course of 6 minutes beginning on room air without assistive devices or breaks. Pretesting oxygen saturation was noted to be 99% on room air. With ambulation, the ramiro oxygen saturation was 94%. This represents a significant exertional oxygen desaturation. - Recommendations Recommendations: There is no indication for the use of supplemental oxygen at this time. However, close interval follow-up is recommended given the degree of oxygen desaturation noted during this study.
== END ==
PROVIDERS: Family Provider Family Medicine; PCP Family Medicine; Visit Provider Internal Medicine Critical Care Medicine
DX: R06.02 Shortness of breath (principal); C34.92 Malignant neoplasm of unspecified part of left bronchus or lung
CPT/HCPCS: 94618

== ENCOUNTER → 2018-03-09 12:52 | Outpatient (CLI) | payer MEDICARE, OTHER, SELFPAY ==
--- NOTE | 2018-03-09 12:55 | CT_ITS ---
STUDY: CT ABDOMEN AND PELVIS WITH CONTRAST REASON FOR EXAM: Male, 67 years old. Prostate and lung cancer with partial left pneumonectomy, prostate surgery, chemotherapy and radiation therapy. RADIATION DOSAGE (If Supplied By Facility): CTDIvol = ( 19.67 ) mGy, DLP = ( 1912.31 ) mGycm TECHNIQUE: Transaxial images were obtained from the dome of the diaphragm to the symphysis pubis without oral contrast. 100 ml of Isovue 300 contrast was administered. Sagittal and coronal images were reconstructed. Individualized dose optimization techniques were used for this CT. COMPARISON: CT chest same date. CT pelvis 01/04/2015. CTA chest 10/02/2017. FINDINGS: Body wall soft tissues: No acute process. Osseous structures: No lytic or blastic osseous disease. Degenerative changes with ankylosis of the SI joints. No significant hip joint DJD. Mild lumbar spondylosis with scoliosis and osteopenia. Hepatobiliary: Normal. Pancreas: No acute process. Spleen: Normal. Adrenal glands: Normal. Urogenital: There are benign bilateral renal cysts, normal renal cortical thickness and symmetric nephrograms. Normal collecting systems and ureters. There is circumferential thickening of wall the urinary bladder. The prostate is absent. The seminal vesicles are either diminutive or absent. Pelvic floor and sidewalls and retroperitoneum: No mass or adenopathy. Vasculature: No acute process. Stomach: No acute process. Small bowel and mesentery: No acute process. Large bowel: Normal appendix. Scattered diverticulosis of the large bowel without acute diverticulitis. There is mild thickening of the wall of the rectum, without acute inflammatory induration the surrounding fat. This could reflect sequela from prostatic radiation therapy. Similar features seen on prior imaging. Free fluid or free air: None. CT/Abdomen/Pelvis WITH Contrast IMPRESSION: No acute abdominopelvic process is evident. Stable chronic findings as noted above. Electronically Signed: Lauro Wright, at 14:05 EDT Tel , Service support ,
--- NOTE | 2018-03-09 12:55 | CT_ITS ---
STUDY: CT CHEST WITH CONTRAST REASON FOR EXAM: Male, 67 years old. Prostate and lung cancer. History of partial left lung removal and prostate surgery. Prior hernia repair. Radiation therapy for prostate cancer. Chemotherapy for lung cancer. Hypertension. RADIATION DOSAGE (If Supplied By Facility): CTDIvol = ( 19.67 ) mGy, DLP = ( 1912.31 ) mGycm TECHNIQUE: Transaxial imaging was performed following intravenous administration of 100 ml of Isovue 300 contrast material. Coronal and sagittal 2-D MPR. Individualized dose optimization techniques were used for this CT. COMPARISON: CT chest same date. CT chest 10/02/2017. CT pelvis 01/04/2015. FINDINGS: Supraclavicular: There is a cluster of small lymph nodes right paratracheal at the thoracic inlet. Not pathologically enlarged. These have diminished in size compared to prior imaging of October 2017. Likely representing a response to chemotherapy. Normal thyroid. There is no supraclavicular mass or lymphadenopathy. Thoracic body wall soft tissues: No acute process. Osseous structures: Osteopenia, scoliosis, mild thoracic spondylosis, no lytic or blastic lesions. Mediastinum: Normal esophagus. Multiple small clustered lymph nodes are present subcarinal, peritracheal, AP window. Substantially reduced in size, number and conspicuity as compared to prior imaging. Tiny lymph nodes in the [place] have markedly improved. Lungs: Partial pneumonectomy on the left, left lower lobectomy. Minimal layering left effusion and left lung base atelectasis. Kussman pulmonary nodule the right lower lung, old granulomatous disease. Lung acutely clear. Heart: Normal heart size without effusion. No visible coronary calcifications. No appendage thrombus. Aorta: Nondilated, minimal arch atherosclerosis, widely patent bovine cervical arch branching. Pulmonary arteries: Nondilated. Ligation of the left lower lobe pulmonary artery. On the right, there is stranding favoring this thrombus within the right lower lobar artery, just barely extending into a proximal segmental bifurcation in the lower lobes, without distal propagation. This is consistent with subacute/chronic thrombus. CT/Chest WITH Contrast IMPRESSION: 1. Markedly diminished lymphadenopathy compared to prior imaging of October 2017 and likely reflecting a response to chemotherapy. 2. Small layering left pleural effusion, with left lung base atelectasis, stable compared to imaging of October 2017. 3. Subacute/chronic small focus of pulmonary embolus, right lower lobar and branch proximal segmental vessels. Sequela from the embolus seen on the prior study of 10/02/2017, markedly improved. No residual embolus is seen on the left. Electronically Signed: Lauro Wright, at 14:00 EDT Tel , Service support ,
[2018-03-09 13:11] LABS: CREATININE FINGERSTICK 0.9 mg/dL (0.70-1.30); EGFR FINGERSTICK > 60.0000 mL/min (>60)
== END ==
PROVIDERS: Family Provider Family Medicine; PCP Family Medicine; Visit Provider Internal Medicine Hematology & Oncology
DX: Z01.812 Encounter for preprocedural laboratory examination (principal); C61 Malignant neoplasm of prostate; C34.32 Malignant neoplasm of lower lobe, left bronchus or lung
CPT/HCPCS: 71260; 74177; Q9967

== ENCOUNTER 2018-03-31 15:04 | Observation (INO) | payer MEDICARE, OTHER, SELFPAY ==
[2018-03-31] VITALS (8 sets, daily range): BP systolic 125–178; BP diastolic 71–102; PULSE 65–73; RESP 16–18; TEMP 36.4–36.8; O2SAT 97–99; BMI 28.7; BMI 28.5
[2018-03-31] MEDS: Aspirin 81 MG TAB.CHEW 324 MG PO (15:23)
[2018-03-31 15:34] LABS: Anion Gap 9 (5-15); BUN 20 mg/dL (7-18); Calcium,Total 9.1 mg/dL (8.5-10.1); Chloride 104 mmol/L (98-107); Creatinine, Serum 1.33 mg/dL (0.70-1.30); EST Glomerular Filtration Rate 57 mL/min (>60); Est Glom Filt Rate - Afr Amer 69 mL/min (>60); Estimated Creatinine Clearance 57.17 ml/min; Glucose 107 mg/dL (74-106); Potassium 3.8 mmol/L (3.5-5.1); Sodium Level 138 mmol/L (136-145)
[2018-03-31 15:36] LABS: Bedside Glucose 113 mg/dL (70-110)
--- NOTE | 2018-03-31 15:40 | ED.DCSUM_ITS ---
- ER Visit Summary Date of Service: 03/31/18 Chief Complaint: Chest pain, right arm weakness History of Present Illness: The patient is a 67 M presenting with chest pain and right arm weakness. He states the chest pain occurred yesterday. He states the pain was substernal radiating to his left arm. It lasted 10 minutes. There was associated shortness of breath. He has not had any chest pain today. Today he states he went to grab something and was unable to use his right arm. He complains of right arm weakness and numbness which lasted 10- 20 minutes. He denies visual or speech changes. Denies confusion. Denies other complaints. He has a history of MS, hypertension, hypercholesterolemia, previous lung cancer, prior DVT. He is on Eliquis. His symptoms have now resolved. Physical Examination: Vitals are stable. Patient is afebrile. Alert no acute distress. HEENT exam is unremarkable. Neck is supple. Lungs are clear and equal bilaterally. Heart is regular rate and rhythm. Abdomen is soft nontender nondistended. Extremities are unremarkable. Skin is warm and dry. No focal neurologic deficit. NIH 0. Remainder of exam is unremarkable. Emergency Department Course and Treatment: EKG is sinus rate of 77 with no acute ischemic changes. He was given aspirin on arrival. He is chest pain-free in the emergency department. CBC showed hemoglobin 11.2. Chemistries show BUN 20, creatinine 1.33. Troponin is indeterminate 0.365. CTA chest shows emboli are demonstrated in the proximal right lower lobe pulmonary artery. There may be a chronic component as emboli were also seen in this region on the prior study of October 02, 2017. Mediastinal adenopathy, appearing similar to the previous study. There are several small calcified granulomas of the right upper lobe. There is left lower lobe hemithoracic pleural thickening, stable in the interval. There is a small focus of left basilar consolidation, also unchanged from the previous study. CT head shows chronic changes. His chest pain and right arm weakness have resolved. Will discuss with the hospitalist for admission. Disposition: Admission Impression: Chest pain, indeterminate troponin, chronic PE, TIA This note was generated with [employer] dictation software. It may contain incorrect words, spelling, and punctuation that were not noted in review of the chart prior to signing ED Disposition - Plan for ED Patient: Chief Complaint: Chest Pain Referrals: Fernando Mock DO [Primary Care Provider] -
[2018-03-31 15:45] LABS: Absolute Lymphocyte Count 0.98 X10^3/ul (0.83-4.51); Absolute Neutrophil Count 4.4 X10^3/uL (2.0-7.7); Basophil# 0.03 X10^3/uL; Basophil% 0.5 % (0-1); Eosinophil# 0.08 X10^3/uL; Eosinophils% 1.3 % (0-5); Hematocrit 34.3 % (40-54); Hemoglobin 11.2 g/dl (13.0-16.5); Lymphocyte # 0.98 X10^3/ul (4.0); Lymphocyte % 16.1 % (19-41); Mean Corp Hgb Conc 32.7 g/gl (32-36); Mean Corpuscular Hgb 30.8 pg (27.0-32.0); Mean Corpuscular Volume 94.2 fL (80-94); Monocyte# 0.57 X10^3/uL; Monocyte% 9.4 % (0-10); Neutrophil # 4.41 X10^3/uL (2.7-7.7); Neutrophil % 72.5 % (47-70); Platelet Count 205 K/mm3 (150-450); RBC Distribution Width CV 13.4 % (11.6-14.6); RBC Distribution Width SD 46.4 fl (35.1-43.9); Red Blood Count 3.64 M/mm3 (4.6-6.2); White Blood Count 6.1 K/mm3 (4.4-11.0)
[2018-03-31 15:57] LABS: POSITIVE COUNT NO; POSITIVE DIFFERENTIAL NO; POSITIVE MORPHOLOGY NO
--- NOTE | 2018-03-31 17:31 | PCM.HP.STD ---
<Nakul Huston - Last Filed: 03/31/18 17:45> Problem List (1) CVA (cerebral vascular accident) Status: Acute (2) Elevated troponin Status: Acute (3) Prostate cancer Status: Chronic Comment: surgery , R.T. 2014 PSA relapse 2016 ADT (4) Multiple sclerosis Status: Chronic Comment: left leg weakness (5) Cancer of lower lobe of left lung Status: Chronic (6) Regional lymph node metastasis present Status: Chronic (7) Anemia Status: Chronic (8) Pulmonary embolism Status: Chronic (9) Hyperlipidemia Status: Chronic (10) Hypertension Status: Chronic History of Present Illness Date of Admission: 03/31/18 Chief Complaint: chest pain The patient is a 67 year old M with a hx of NSCLC - adenocarcinoma, pt of Dr. Leger, known PE, prostate CA, HLD, HTN, GERD, and MS who presented to the ER with c/o right arm weakness and loss of coordination. He states that he was in his car parked on the side of the road and went to reach for his coffee in the center console, but missed and was unable to work his arm correctly. It felt weak and there was some numbness. He thinks the sensation did last for about 15 minutes before mostly resolving. He did still have some weakness when he came to the ER. Currently has no complaints. He denies double vision, dizziness, LH, facial droop, and slurred speech, no weakness in LE. His did not notice any either. He is also concerned because he had midsternal Chest pain intermittently over the past week, most recently yesterday. He states this pain is midsternal and radiates into his back and left arm. He does have some SOB but this is chronic. He had no dizziness or LH. Currently he has no chest pain. CTA shows known lung cancer, adenopathy, and emboli. EKG negative. CT brain with chronic changes. [] Past Medical History Past Medical History (Chronic Problems): Chronic Problems (Last Reviewed 03/16/18 @ 11:12 by Zenobia Hillman) Prostate cancer (Chronic) surgery , R.T. 2014 PSA relapse 2016 ADT Multiple sclerosis (Chronic) left leg weakness Cancer of lower lobe of left lung (Chronic) Regional lymph node metastasis present (Chronic) Anemia (Chronic) Pulmonary embolism (Chronic) Adenocarcinoma of lung (Chronic) Hyperlipidemia (Chronic) Hypertension (Chronic) 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) [facility] 07/03/17 Medical History: Medical History (Last Reviewed 03/16/18 @ 11:12 by Zenobia Hillman) Viral pharyngitis (Acute) J02.9 Nasopharyngitis (Acute) J00 Limb weakness (Acute) R29.898 unusual tierdness (Acute) Sinusitis (Acute) J32.9 SOB (shortness of breath) (Acute) R06.02 Dyspnea (Acute) R06.00 Adenocarcinoma of lung (Chronic) C34.90 Hyperlipidemia (Chronic) E78.5 Hypertension (Chronic) I10 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) [facility] 07/03/17 LYMPH NODE REMOVAL-CHEST (Acute) [facility] 07/03/17 BLOOD CLOT LUNGS Deep vein blood clot of left lower extremity I82.402 Deep vein blood clot of right lower extremity I82.401 Allergies morphine Adverse Reaction (Intermediate, Verified 03/31/18 15:09) MAKES HIS NAUSEATED AND SICK Home Medications: Ambulatory Orders Medication Instructions Recorded Lupron Depot mg IM UD 10/02/17 Apixaban [Eliquis] 5 mg PO BID #60 tab.ds.pk 10/04/17 Bisprolol Fumarate 10 mg PO DAILY 11/03/17 Handicap Placard #1 ea 02/18/18 Folic Acid 1 mg PO DAILY@0800 03/31/18 Guaifenesin [Mucinex] 1,200 mg PO PRN PRN 03/31/18 Lansoprazole [Prevacid] 15 mg PO DAILY 03/31/18 Surgical History: Surgical History (Last Reviewed 03/16/18 @ 11:12 by Zenobia Hillman) History of prostatectomy (Acute) Z98.890, Z90.79 Surgical History: - Lives: Spouse/ Significant Other Smoking Status: Former smoker Tobacco Use: Non-smoker Alcohol: None Drugs: None - *Family History maternal Family History: Family History (Last Reviewed 03/31/18 @ 17:39 by CARMEN Metcalf) Father Prostate cancer Liver cancer Liver disease Mother Bone cancer Maternal Family History: Family History (Last Reviewed 03/31/18 @ 17:39 by CARMEN Metcalf) Father Prostate cancer Liver cancer Liver disease Mother Bone cancer Review of Systems Constitutional: Denies: Chills, Fever, Weight Change HEENT: Denies: Head Aches, Sinus Congestion, Sinus Drainage Cardiovascular: Reports: Chest Pain. Denies: Palpitations Respiratory: Reports: Shortness of Breath. Denies: Cough, Shortness of breath at rest, Sputum production Gastrointestinal: Denies: Abdominal Pain, Nausea, Vomiting Genitourinary: Denies: Dysuria Musculoskeletal: Denies: Joint Pain, Joint Tenderness Skin: Denies: Rash, Wounds Neurological: Denies: Numbness, Tingling, Focal weakness Psychiatric: Denies: Anxiety, Depression, Homicidal Ideations, Suicidal Ideations Hematologic/ Lymphatic: Denies: Easy Bruising, Easy Bleeding VTE Information - Inpt Only VTE Present on Admission: Yes VTE Mechan Device Prophylaxis: None VTE Pharm Prophylaxis ordered?: Yes Patient Problems: Active and Suspected Problems (Last Reviewed 03/16/18 @ 11:12 by Zenobia Hillman) CVA (cerebral vascular accident) (Acute) Elevated troponin (Acute) - Physical Exam General: Alert, Oriented x3, Cooperative HEENT: Atraumatic, PERRLA, EOMI, Normocephalic Neck: Supple, No JVD, Negative Carotid Bruits Lungs: Clear to auscultation, Normal air movement Cardiovascular: Regular rate, No murmurs Abdomen: Bowel Sounds Present, Soft, Non Tender Extremities: No edema, Capillary Refill Less than 3 Seconds Skin: No rashes, No breakdown Musculoskeletal: No Tenderness to Palpation of Joints or Extremities Neurological: Cranial nerves II-XII grossly intact, - - no difficulty with pronator drift, light industrial supervisor strength, upper/lower ext strength, point to point, rapid alternating movements, or sensation testing. Psych/Mental Status: Normal Affect, Appropriate, Alert and oriented to time, place, person, mood and affect Vital Signs Temp Pulse Resp BP Pulse Ox 98.2 F 69 18 178/90 H 98 03/31/18 15:06 03/31/18 17:23 03/31/18 17:23 03/31/18 17:23 03/31/18 17:23 Oxygen Delivery Method Room Air Weight: 200 lb Body Mass Index (BMI) 28.7 Laboratory Tests Past 24 Hrs 03/31/18 03/31/18 15:05 15:05 WBC 6.1 RBC 3.64 L Hgb 11.2 L Hct 34.3 L MCV 94.2 H MCH 30.8 MCHC 32.7 RDW 13.4 RDW Differential 46.4 H Plt Count 205 MPV 9.0 Immature Gran % (Auto) 0.200 Neut % (Auto) 72.5 H Lymph % (Auto) 16.1 L [place] % (Auto) 9.4 Eos % (Auto) 1.3 Baso % (Auto) 0.5 Absolute Neuts (auto) 4.4 Absolute Lymphs (auto) 0.98 Total Counted Not Reportable Sodium 138 Potassium 3.8 Chloride 104 Carbon Dioxide 25.0 Anion Gap 9 BUN 20 H Creatinine 1.33 H Estim Creat Clear Calc 57.17 Est GFR (MDRD) Af Amer 69 Est GFR (MDRD) Non-Af 57 L BUN/Creatinine Ratio 15.0 Glucose 107 H Calcium 9.1 Troponin I 0.365 H POC Glucose 03/31/18 15:03 POC Glucose 113 H Assessment/Plan All Active Problems (Last Reviewed 03/16/18 @ 11:12 by Zenobia Hillman) Educational circumstance (Acute) HCAP (healthcare-associated pneumonia) (Acute) CVA (cerebral vascular accident) (Acute) Elevated troponin (Acute) Viral pharyngitis (Acute) Nasopharyngitis (Acute) Limb weakness (Acute) unusual tierdness (Acute) Sinusitis (Acute) SOB (shortness of breath) (Acute) Dyspnea (Acute) History of prostatectomy (Acute) LYMPH NODE REMOVAL-CHEST (Acute) 1. CVA - transient right arm incoordination, weakness, numbness. Now resolved. negative CT brain. MRI/MRA brain, head, neck, Echocardiogram. BP elevated, permissive. Neuro consult. On eliquis. Not on antiplatelet or statin. PT/OT/ST eval. Neuro exam is benign. 2. Elevated troponin and chest pain - Negative EKG. Repeat EKG in AM, cycle enzymes. Consider cardiology consult. CP currently resolved. Echocardiogram. 3. Known PEs - on eliquis. Respiratory status stable. 4. NSCLC adenocarcinoma and prostate CA - pt of Dr. Leger. On lupron. Prior LL lobectomy, rads, chemo. Concern for mets, mri as above. 5. MS - stable 6. GERD - ppi 7. HTN - permissive. trend. 8. Mild anemia - stable 9. Mildly elevated cr - suspect [id number], does not appear significantly above basleline DVT ppx: on eliquis DC planning: PTOT. This patient was seen by Nakul Huston PA-C under the supervision of Doctor Laci. <Trung Aguero - Last Filed: 03/31/18 18:27> History of Present Illness The patient is a 67 year old M [] Past Medical History Medical History: Medical History (Last Reviewed 03/16/18 @ 11:12 by Zenobia Hillman) Viral pharyngitis (Acute) J02.9 Nasopharyngitis (Acute) J00 Limb weakness (Acute) R29.898 unusual tierdness (Acute) Sinusitis (Acute) J32.9 SOB (shortness of breath) (Acute) R06.02 Dyspnea (Acute) R06.00 Adenocarcinoma of lung (Chronic) C34.90 Hyperlipidemia (Chronic) E78.5 Hypertension (Chronic) I10 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) [facility] 07/03/17 LYMPH NODE REMOVAL-CHEST (Acute) [facility] 07/03/17 BLOOD CLOT LUNGS Deep vein blood clot of left lower extremity I82.402 Deep vein blood clot of right lower extremity I82.401 Allergies morphine Adverse Reaction (Intermediate, Verified 03/31/18 15:09) MAKES HIS NAUSEATED AND SICK Surgical History: Surgical History (Last Reviewed 03/16/18 @ 11:12 by Zenobia Hillman) History of prostatectomy (Acute) Z98.890, Z90.79 - *Family History maternal Family History: Family History (Last Reviewed 03/31/18 @ 17:39 by CARMEN Metcalf) Father Prostate cancer Liver cancer Liver disease Mother Bone cancer Maternal Family History: Family History (Last Reviewed 03/31/18 @ 17:39 by CARMEN Metcalf) Father Prostate cancer Liver cancer Liver disease Mother Bone cancer - Physical Exam Vital Signs Temp Pulse Resp BP Pulse Ox 98.3 F 66 18 169/84 H 99 03/31/18 18:15 03/31/18 18:15 03/31/18 18:15 03/31/18 18:15 03/31/18 18:15 Oxygen Delivery Method Room Air Weight: 198 lb 8 oz Body Mass Index (BMI) 28.5 Assessment/Plan Addendum: Dr. Aguero I personally examined the patient and reviewed the chart. I agree with the above. Mr. Gardner is a 67-year-old male with a past medical history significant for left lung adenocarcinoma, chronic pulmonary emboli, and prostate cancer. For the last 3-4 days he has been having intermittent chest pain that radiates to his left arm he says that this chest pain primarily occurs during rest and when he is active he does not have the chest pain. He denies any lightheadedness dizziness. The reason for his presentation to the ER today was specifically was because he had transient right arm weakness. Episode lasted between 10 and 20 minutes. On presentation to the ER CT brain was negative. He did have a slightly elevated troponin to 0.368. General: Alert, Oriented x3, Cooperative, No apparent distress HEENT: Atraumatic, EOMI, Normocephalic Oral: Moist Mucosa Neck: Supple, No JVD Lungs: Clear to auscultation, Normal air movement, No rhonchi, No wheeze, No rales Cardiovascular: Regular rate, Regular Rhythm, Normal S1, Normal S2, No murmurs Abdomen: Soft, Non Tender, Non-Distended, No Hepato-splenomegaly Extremities: No edema, Capillary Refill Less than 3 Seconds Skin: No rashes, No breakdown Musculoskeletal: No Tenderness to Palpation of Joints or Extremities Neurological: Cranial nerves II-XII grossly intact, 5/5 in both UE and RLE, 4/5 on the left lower , Sensory exam intact to light touch and pain Psych/Mental Status: Normal Affect, Appropriate 1. Chest pain/Right UE weakness/MS/Chronic PE - With his transient arm weakness and his chest pain he would benefit from an echo - If there is a stroke on repeat CT head in the morning, he is already on eliquis for his chronic PE - Given bleeding risk, would not add aspirin - Will risk stratify with a lipid panel and start a statin - Trend troponins and repeat ekg in am - This is unlikely to be a flare or pseudoexacerbation of his MS 2. Left lung adenocarcinoma/Prostate cancer - He is stage 2b for the lung cancer - completed chemo for his lung cancer DVT: Eliquis Code Visit Inpatient E&M: 36811 Init Hosp L3
--- NOTE | 2018-03-31 17:36 | NURSING ---
109 PE, INDETERMINATE TROP, TIA DEREK
[2018-03-31 19:24] LABS: Cholesterol 228 mg/dL (200); High Density Lipoprotein 34 mg/dL; Triglycerides 254 mg/dL; Very Low Density Lipoprotein 51 mg/dL (5-40)
[2018-03-31] MEDS: APIXABAN 5 MG TABLET PO (21:07)
[2018-04-01] VITALS (9 sets, daily range): BP systolic 107–141; BP diastolic 60–79; PULSE 65–80; RESP 16; TEMP 36.8–37.1; O2SAT 97–98; BMI 28.5
--- NOTE | 2018-04-01 05:55 | MRI_ITS ---
STUDY: MRI BRAIN WITHOUT CONTRAST REASON FOR EXAM: Male, 67 years old. Right arm weakness and left arm pain. Symptoms resolved. History of prostate carcinoma, lung carcinoma and MS. TECHNIQUE: Standardized multiplanar fat and water weighted pulse sequences were obtained. COMPARISON: 05/29/2017. CT head without contrast 03/31/2018. FINDINGS: 4 punctate restricted diffusion, 3 in the left central lobe convexity and one in the right central lobe convexity (series 4, image 25). There are also 3 punctate restricted diffusion in the occipital lobes, 2 on the left and one on the right (series 4, images 15-16). They were not present previously and are difficult to confirm on the ADC maps. They remain highly suspicious for acute microembolic infarcts. These are not visible on the T2 FLAIR sequences. Normal size of the ventricles and extra-axial spaces for the patient's age. Multiple subcortical white matter T2 FLAIR hyperintensity foci in both cerebral hemispheres are unchanged. No mass effects and no midline shift. Normal bilateral basal ganglia. Normal thalami. There is no extra-axial fluid accumulation. Normal flow voids within the major intracranial circulation suggesting patency by spin echo criteria. Normal sella turcica, pituitary gland, infundibular stalk, optic chiasm and hypothalamus. Normal tectal plate and pineal gland. Normal midbrain, karena and medulla. Normal cerebellum. Normal basal cisterns. Normal bilateral temporal bones. Normal bilateral internal auditory canals. No demonstrated orbital abnormality, within the constraints of a routine brain study. Normal visualized paranasal sinuses. Normal calvarium and skull base. Normal visualized soft tissue structures. Normal visualized upper cervical spine. OPINION: 1. Suspicious acute microembolic infarcts in the central lobe convexities (3 on the left and one on the right) and in both occipital lobes (2 on the left and one on the right). Follow-up MRI DWI sequence in 24 hours will help confirm/clarify. 2. Chronic white matter ischemic changes in both cerebral hemispheres are unchanged. N.B. : The above information has been verbally conveyed by Lee Chavez MD to Thea Altenburger, RN, Hospital- In-Patient RN, on 04/01/2018 09:09:53 (ET). Electronically Signed: Lee Chavez MD at 8:51 EDT , Service support , MRI/Brain without Contrast
[2018-04-01 06:25] LABS: Anion Gap 8 (5-15); BUN 19 mg/dL (7-18); BUN/Creat Ratio 15.4 RATIO (10-20); Calcium,Total 8.9 mg/dL (8.5-10.1); Chloride 107 mmol/L (98-107); Creatinine, Serum 1.23 mg/dL (0.70-1.30); EST Glomerular Filtration Rate 63 mL/min (>60); Est Glom Filt Rate - Afr Amer 76 mL/min (>60); Estimated Creatinine Clearance 61.82 ml/min; Glucose 93 mg/dL (74-106); Potassium 4.1 mmol/L (3.5-5.1); Sodium Level 139 mmol/L (136-145)
[2018-04-01] MEDS: Pantoprazole Sodium 20 MG Tablet PO (08:59)
[2018-04-01] MEDS: APIXABAN 5 MG TABLET PO (08:59)
[2018-04-01] MEDS: Bisoprolol Fumarate 5 MG Tablet 10 MG PO (08:59)
[2018-04-01] MEDS: Folic Acid 1 MG Tablet PO (08:59)
--- NOTE | 2018-04-01 14:19 | PCM.CONS.GEN ---
Problem List (1) CVA (cerebral vascular accident) Status: Acute Qualifiers: CVA mechanism: embolism Laterality of affected vessel: bilateral Reason for Consult Date of Consultation: 04/01/18 Reason for Consultation: Stroke History of Present Illness: The patient is a 67 year old CM with PMH HTN, HLD, ? 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 At present patient denies any MONREAL, visual disturbances, speech disturbances, sensory loss or focal motor weakness. LDL on admission was 143, TTE showed EF 65%, mildly enlarged LA, no PFO. Lives with his spouse, denies any falls, does not use cane or walker to ambulate, and does not need assistance for his ADLs. [] Past Medical History Past Medical History (Chronic Problems): Chronic Problems (Last Reviewed 03/16/18 @ 11:12 by Zenobia Hillman) Prostate cancer (Chronic) surgery , R.T. 2014 PSA relapse 2016 ADT Multiple sclerosis (Chronic) left leg weakness Cancer of lower lobe of left lung (Chronic) Regional lymph node metastasis present (Chronic) Anemia (Chronic) Pulmonary embolism (Chronic) Adenocarcinoma of lung (Chronic) Hyperlipidemia (Chronic) Hypertension (Chronic) 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) [facility] 07/03/17 Medical History: Medical History (Last Reviewed 03/16/18 @ 11:12 by Zenobia Hillman) Viral pharyngitis (Acute) J02.9 Nasopharyngitis (Acute) J00 Limb weakness (Acute) R29.898 unusual tierdness (Acute) Sinusitis (Acute) J32.9 SOB (shortness of breath) (Acute) R06.02 Dyspnea (Acute) R06.00 Adenocarcinoma of lung (Chronic) C34.90 Hyperlipidemia (Chronic) E78.5 Hypertension (Chronic) I10 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) [facility] 07/03/17 LYMPH NODE REMOVAL-CHEST (Acute) [facility] 07/03/17 BLOOD CLOT LUNGS Deep vein blood clot of left lower extremity I82.402 Deep vein blood clot of right lower extremity I82.401 Allergies morphine Adverse Reaction (Intermediate, Verified 03/31/18 15:09) MAKES HIS NAUSEATED AND SICK Home Medications: Ambulatory Orders Medication Instructions Recorded Lupron Depot mg IM UD 10/02/17 Apixaban [Eliquis] 5 mg PO BID #60 tab.ds.pk 10/04/17 Bisprolol Fumarate 10 mg PO DAILY 11/03/17 Handicap Placard #1 ea 02/18/18 Folic Acid 1 mg PO DAILY@0800 03/31/18 Guaifenesin [Mucinex] 1,200 mg PO PRN PRN 03/31/18 Lansoprazole [Prevacid] 15 mg PO DAILY 03/31/18 Surgical History: Surgical History (Last Reviewed 03/16/18 @ 11:12 by Zenobia Hillman) History of prostatectomy (Acute) Z98.890, Z90.79 Surgical History: - Lives: Spouse/ Significant Other Smoking Status: Never smoker Tobacco Use: Non-smoker Alcohol: None Drugs: None - *Family History Maternal Family History: Family History (Last Reviewed 03/31/18 @ 17:39 by CARMEN Metcalf) Father Prostate cancer Liver cancer Liver disease Mother Bone cancer maternal Family History: Family History (Last Reviewed 03/31/18 @ 17:39 by CARMEN Metcalf) Father Prostate cancer Liver cancer Liver disease Mother Bone cancer Review of Systems Constitutional: Reports: - - complete ROS negative except as documented in HPI Patient Problems: Active and Suspected Problems (Last Reviewed 03/16/18 @ 11:12 by Zenobia Hillman) CVA (cerebral vascular accident) (Acute) Elevated troponin (Acute) - Physical Exam General: Alert HEENT: Normocephalic Neck: Supple Lungs: Normal air movement Cardiovascular: Normal S1, Normal S2 Abdomen: Bowel Sounds Present Extremities: No cyanosis Musculoskeletal: No Tenderness to Palpation of Joints or Extremities Neurological: - - consious, alert, AoAx3, CN 2-12 grossly intact, power 5/5 both UE/LE, no sensory loss, no cerebellar signs, Reflexes + B/L B/S/T/K/A, gait deferred. NIHSS 0 at present, mRS 0 Psych/Mental Status: Normal Affect Vital Signs Temp Pulse Resp BP Pulse Ox 98.8 F 80 16 112/65 98 04/01/18 12:52 04/01/18 12:52 04/01/18 12:52 04/01/18 12:52 04/01/18 12:52 Oxygen Delivery Method Room Air Weight: 90.038 kg Body Mass Index (BMI) 28.5 Intake and Output for Last 24 Hours 03/30/18 03/31/18 04/01/18 23:59 23:59 23:59 Intake Total 480 / 480 Balance 480 / 480 Laboratory Tests Past 24 Hrs 03/31/18 03/31/18 04/01/18 18:50 21:22 05:38 Sodium 139 Potassium 4.1 Chloride 107 Carbon Dioxide 24.0 Anion Gap 8 BUN 19 H Creatinine 1.23 Estim Creat Clear Calc 61.82 Est GFR (MDRD) Af Amer 76 Est GFR (MDRD) Non-Af 63 BUN/Creatinine Ratio 15.4 Glucose 93 Calcium 8.9 Troponin I 0.436 H 0.427 H Triglycerides 254 H Cholesterol 228 H LDL Cholesterol 143 H VLDL Cholesterol 51 H HDL Cholesterol 34 L Assessment/Plan All Active Problems (Last Reviewed 03/16/18 @ 11:12 by Zenobia Hillman) Educational circumstance (Acute) HCAP (healthcare-associated pneumonia) (Acute) CVA (cerebral vascular accident) (Acute) Elevated troponin (Acute) Viral pharyngitis (Acute) Nasopharyngitis (Acute) Limb weakness (Acute) unusual tierdness (Acute) Sinusitis (Acute) SOB (shortness of breath) (Acute) Dyspnea (Acute) History of prostatectomy (Acute) LYMPH NODE REMOVAL-CHEST (Acute) The patient is a 67 year old CM with PMH HTN, HLD, ? 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 At present patient denies any MONREAL, visual disturbances, speech disturbances, sensory loss or focal motor weakness. LDL on admission was 143, TTE showed EF 65%, mildly enlarged LA, no PFO. Lives with his spouse, denies any falls, does not use cane or walker to ambulate, and does not need assistance for his ADLs. Impression B/L MCA/HIGHWAY MAINTENANCE SUPERVISOR punctate embolic stroke-probably secondary to underlying malignancy history. adenocarcinoma NSCLC Plan -ASA 81 mg PO once daily. Continue Eliquis 5 mg PO BID. Bleeding risk discussed with patient. -Lipitor 80 mg PO q hs -MRI brain reviewed -Check CTA head/neck -TTE- EF 65%, mildly enlarged LA, no PFO. Given that patient is already on Eliquis, would hold off on CATHY -LDL-143, check Hba1c -Recommend 30 day event recorder -Check hypercoagulable panel -Recommend ophthalmology consult as outpatient. -[facility] control representative Goal BP < 130/80 mmHg and Goal Hba1c < 7% -Stroke risk factors discussed and stroke education provided -Frequent neuro checks -PT/TO/ST -GI/DVT prophylaxis -Please call with question if any -Follow up with Neurology as outpatient in 2-3 weeks -Thank you for allowing us to participate in patient's care and management I spent 60 minutes taking history, doing physical examination, reviewing medical records, coordinating care and counseling the patient. Code Visit Inpatient E&M: 81435 Init Hosp L3
--- NOTE | 2018-04-01 14:23 | CON.PCM_ITS ---
Problem List (1) CVA (cerebral vascular accident) Status: Acute Qualifiers: CVA mechanism: embolism Laterality of affected vessel: bilateral Reason for Consult Date of Consultation: 04/01/18 Reason for Consultation: Stroke History of Present Illness: The patient is a 67 year old CM with PMH HTN, HLD, ? MS (per patient this was ? 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 At present patient denies any MONREAL, visual disturbances, speech disturbances, sensory loss or focal motor weakness. LDL on admission was 143, TTE showed EF 65%, mildly enlarged LA, no PFO. Lives with his spouse, denies any falls, does not use cane or walker to ambulate, and does not need assistance for his ADLs. [] Past Medical History Past Medical History (Chronic Problems): Chronic Problems (Last Reviewed 03/16/18 @ 11:12 by Zenobia Hillman) Prostate cancer (Chronic) surgery , R.T. 2014 PSA relapse 2016 ADT Multiple sclerosis (Chronic) left leg weakness Cancer of lower lobe of left lung (Chronic) Regional lymph node metastasis present (Chronic) Anemia (Chronic) Pulmonary embolism (Chronic) Adenocarcinoma of lung (Chronic) Hyperlipidemia (Chronic) Hypertension (Chronic) 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) [facility] 07/03/17 Medical History: Medical History (Last Reviewed 03/16/18 @ 11:12 by Zenobia Hillman) Viral pharyngitis (Acute) J02.9 Nasopharyngitis (Acute) J00 Limb weakness (Acute) R29.898 unusual tierdness (Acute) Sinusitis (Acute) J32.9 SOB (shortness of breath) (Acute) R06.02 Dyspnea (Acute) R06.00 Adenocarcinoma of lung (Chronic) C34.90 Hyperlipidemia (Chronic) E78.5 Hypertension (Chronic) I10 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) [facility] 07/03/17 LYMPH NODE REMOVAL-CHEST (Acute) [facility] 07/03/17 BLOOD CLOT LUNGS Deep vein blood clot of left lower extremity I82.402 Deep vein blood clot of right lower extremity I82.401 Allergies morphine Adverse Reaction (Intermediate, Verified 03/31/18 15:09) MAKES HIS NAUSEATED AND SICK Home Medications: Ambulatory Orders Medication Instructions Recorded Lupron Depot mg IM UD 10/02/17 Apixaban [Eliquis] 5 mg PO BID #60 tab.ds.pk 10/04/17 Bisprolol Fumarate 10 mg PO DAILY 11/03/17 Handicap Placard #1 ea 02/18/18 Folic Acid 1 mg PO DAILY@0800 03/31/18 Guaifenesin [Mucinex] 1,200 mg PO PRN PRN 03/31/18 Lansoprazole [Prevacid] 15 mg PO DAILY 03/31/18 Surgical History: Surgical History (Last Reviewed 03/16/18 @ 11:12 by Zenobia Hillman) History of prostatectomy (Acute) Z98.890, Z90.79 Surgical History: - Lives: Spouse/ Significant Other Smoking Status: Never smoker Tobacco Use: Non-smoker Alcohol: None Drugs: None - *Family History Maternal Family History: Family History (Last Reviewed 03/31/18 @ 17:39 by CARMEN Metcalf) Father Prostate cancer Liver cancer Liver disease Mother Bone cancer maternal Family History: Family History (Last Reviewed 03/31/18 @ 17:39 by CARMEN Metcalf) Father Prostate cancer Liver cancer Liver disease Mother Bone cancer Review of Systems Constitutional: Reports: - - complete ROS negative except as documented in HPI Patient Problems: Active and Suspected Problems (Last Reviewed 03/16/18 @ 11:12 by Zenobia Hillman) CVA (cerebral vascular accident) (Acute) Elevated troponin (Acute) - Physical Exam General: Alert HEENT: Normocephalic Neck: Supple Lungs: Normal air movement Cardiovascular: Normal S1, Normal S2 Abdomen: Bowel Sounds Present Extremities: No cyanosis Musculoskeletal: No Tenderness to Palpation of Joints or Extremities Neurological: - - consious, alert, AoAx3, CN 2-12 grossly intact, power 5/5 both UE/LE, no sensory loss, no cerebellar signs, Reflexes + B/L B/S/T/K/A, gait deferred. NIHSS 0 at present, mRS 0 Psych/Mental Status: Normal Affect Vital Signs Temp Pulse Resp BP Pulse Ox 98.8 F 80 16 112/65 98 04/01/18 12:52 04/01/18 12:52 04/01/18 12:52 04/01/18 12:52 04/01/18 12:52 Oxygen Delivery Method Room Air Weight: 90.038 kg Body Mass Index (BMI) 28.5 Intake and Output for Last 24 Hours 03/30/18 03/31/18 04/01/18 23:59 23:59 23:59 Intake Total 480 / 480 Balance 480 / 480 Laboratory Tests Past 24 Hrs 03/31/18 03/31/18 04/01/18 18:50 21:22 05:38 Sodium 139 Potassium 4.1 Chloride 107 Carbon Dioxide 24.0 Anion Gap 8 BUN 19 H Creatinine 1.23 Estim Creat Clear Calc 61.82 Est GFR (MDRD) Af Amer 76 Est GFR (MDRD) Non-Af 63 BUN/Creatinine Ratio 15.4 Glucose 93 Calcium 8.9 Troponin I 0.436 H 0.427 H Triglycerides 254 H Cholesterol 228 H LDL Cholesterol 143 H VLDL Cholesterol 51 H HDL Cholesterol 34 L Assessment/Plan All Active Problems (Last Reviewed 03/16/18 @ 11:12 by Zenobia Hillman) Educational circumstance (Acute) HCAP (healthcare-associated pneumonia) (Acute) CVA (cerebral vascular accident) (Acute) Elevated troponin (Acute) Viral pharyngitis (Acute) Nasopharyngitis (Acute) Limb weakness (Acute) unusual tierdness (Acute) Sinusitis (Acute) SOB (shortness of breath) (Acute) Dyspnea (Acute) History of prostatectomy (Acute) LYMPH NODE REMOVAL-CHEST (Acute) The patient is a 67 year old CM with PMH HTN, HLD, ? MS (per patient this was ? 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 At present patient denies any MONREAL, visual disturbances, speech disturbances, sensory loss or focal motor weakness. LDL on admission was 143, TTE showed EF 65%, mildly enlarged LA, no PFO. Lives with his spouse, denies any falls, does not use cane or walker to ambulate, and does not need assistance for his ADLs. 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 adenocarcinoma NSCLC Plan -ASA 81 mg PO once daily. Continue Eliquis 5 mg PO BID. Bleeding risk discussed with patient. -Lipitor 80 mg PO q hs -MRI brain reviewed -Check CTA head/neck -TTE- EF 65%, mildly enlarged LA, no PFO. Given that patient is already on Eliquis, would hold off on CATHY -LDL-143, check Hba1c -Recommend 30 day event recorder -Check hypercoagulable panel -Recommend ophthalmology consult as outpatient. -[facility] Goal BP < 130/80 mmHg and Goal Hba1c < 7% -Stroke risk factors discussed and stroke education provided -Frequent neuro checks -PT/TO/ST -GI/DVT prophylaxis -Please call with question if any -Follow up with Neurology as outpatient in 2-3 weeks -Thank you for allowing us to participate in patient's care and management I spent 60 minutes taking history, doing physical examination, reviewing medical records, coordinating care and counseling the patient. Code Visit Inpatient E&M: 24675 Init Hosp L3
[2018-04-01 16:02] LABS: Hemoglobin A1c 5.4 % (4.2-6.3)
[2018-04-01] MEDS: Aspirin 81 MG TAB.CHEW PO (16:16)
--- NOTE | 2018-04-01 16:49 | PCM.DC ---
- Discharge Diagnoses Current Active Problems: Current Active and Chronic Problems (Last Reviewed 03/16/18 @ 11:12 by Zenobia Hillman) CVA (cerebral vascular accident) (Acute) Elevated troponin (Acute) You will use the following diet at home:: No restrictions, Regular Your food should be the consistency of: Regular Discharge Activity: Return to Normal Activity, No Restrictions Allergies/Adverse Reactions: Allergies morphine Adverse Reaction (Intermediate, Verified 03/31/18 15:09) MAKES HIS NAUSEATED AND SICK Medications to take at Discharge Lupron Depot mg IM UD 10/02/17 Apixaban [Eliquis] 5 mg PO BID #60 tab.ds.pk 10/04/17 Bisprolol Fumarate 10 mg PO DAILY 11/03/17 Handicap Placard #1 ea 02/18/18 Folic Acid 1 mg PO DAILY@0800 03/31/18 Lansoprazole [Prevacid] 15 mg PO DAILY 03/31/18 Aspirin [Aspirin, Baby] 81 mg PO DAILY@0800 #30 tab.chew 04/01/18 Atorvastatin Calcium [Lipitor] 80 mg PO QHS tablet 04/01/18 The following prescriptions were given: Aspirin [Aspirin, Baby] 81 mg PO DAILY@0800 #30 tab.chew Please follow up with your Primary Care Physician in: 1-2 weeks Test Results: Test results from this visit will be discussed in further detail at your follow-up appointment, if applicable. Proposed Discharge Date: 04/01/18
--- NOTE | 2018-04-01 16:51 | PCM.DC.SUM ---
Discharge Date and Diagnosis - Problem List Patient Problems: Active and Suspected Problems (Last Reviewed 03/16/18 @ 11:12 by Zenobia Hillman) CVA (cerebral vascular accident) (Acute) Elevated troponin (Acute) Date of Admission: 03/31/18 Date of Discharge: 04/01/18 - Primary Discharge Diagnosis Active and Suspected Problems (Last Reviewed 03/16/18 @ 11:12 by Zenobia Hillman) CVA (cerebral vascular accident) (Acute) Elevated troponin (Acute) - Secondary Discharge Diagnosis Chronic Problems (Last Reviewed 03/16/18 @ 11:12 by Zenobia Hillman) Prostate cancer (Chronic) surgery , R.T. 2014 PSA relapse 2016 ADT Multiple sclerosis (Chronic) left leg weakness Cancer of lower lobe of left lung (Chronic) Regional lymph node metastasis present (Chronic) Anemia (Chronic) Pulmonary embolism (Chronic) Adenocarcinoma of lung (Chronic) Hyperlipidemia (Chronic) Hypertension (Chronic) 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) [facility] 07/03/17 Hospital Course and Treatment Imaging Results: 04/01/18 14:18 CTA Head W/WO Contrast [CT] Urgent CTA Neck W/WO Contrast [CT] Urgent Operations: None Procedures: 2-D Echocardiogram Summary of Care Provided: The patient is a 67 year old M admitted on account of transient weakness and numbness and paresthesias in the right upper extremity. TIA/stroke was suspected. neurology consulted and stroke work up initiated. CTA of the head and neck were normal and MRI of the brain showed a few microinfarcts raising the suspicion for a central/cardiac source of emboli. TTE was negative. Patient is doing well and all neurological symptoms and deficits have resolved [] Discharge Activity: Return to Normal Activity, No Restrictions Home Medications: Medications to take at Discharge Lupron Depot mg IM UD 10/02/17 Apixaban [Eliquis] 5 mg PO BID #60 tab.ds.pk 10/04/17 Bisprolol Fumarate 10 mg PO DAILY 11/03/17 Handicap Placard #1 ea 02/18/18 Folic Acid 1 mg PO DAILY@0800 03/31/18 Lansoprazole [Prevacid] 15 mg PO DAILY 03/31/18 Aspirin [Aspirin, Baby] 81 mg PO DAILY@0800 #30 tab.chew 04/01/18 Atorvastatin Calcium [Lipitor] 80 mg PO QHS tablet 04/01/18 Following Prescrptions Were Given to Patient: Aspirin [Aspirin, Baby] 81 mg PO DAILY@0800 #30 tab.chew Primary Care Physician: Fernando Mock DO [Primary Care Provider] - Please follow up with your Primary Care Physician in: 1-2 weeks Medical Necessity - Tobacco Use Smoking Status: Never smoker Tobacco Use: Non-smoker Meaningful Use Info Meaningful Use Diagnoses (Choose all that apply): None applicable Code Visit Inpatient E&M: 39706 Disch Hosp
[2018-04-08 08:10] LABS: Protein C Antigen 86 % (60-150); Protein C, Functional 129 % (73-180)
[2018-04-08 11:40] LABS: Anti-Cardiolipin Ab, IgG, Qn 12 GPL U/mL (0-14); Anti-Cardiolipin Ab, IgM, Qn 44 MPL U/mL (0-12); Anti-Thrombin 3 AG, Immunol 118 % (72-124); Antithrombin 3 Function 142 % (75-135); Beta-2-Glycoprotein I IgA <9 (0-25); Beta-2-Glycoprotein I IgG <9 (0-20); Beta-2-Glycoprotein I IgM <9 (0-32)
== END 2018-04-01 16:50 | disposition home or self-care (01) ==
LOC: ED 15:31 → PCU 17:42
PROVIDERS: Psychiatry & Neurology Neurology; Admitting Provider Family Medicine; Emergency Provider Emergency Medicine; Family Provider Family Medicine; PCP Family Medicine; Visit Provider Internal Medicine
DX: R07.89 Other chest pain (principal); G35 Multiple sclerosis; I08.1 Rheumatic disorders of both mitral and tricuspid valves; I65.23 Occlusion and stenosis of bilateral carotid arteries; E78.5 Hyperlipidemia, unspecified; I10 Essential (primary) hypertension; R53.1 Weakness; R06.02 Shortness of breath; K21.9 Gastro-esophageal reflux disease without esophagitis; C34.90 Malignant neoplasm of unspecified part of unspecified bronchus or lung; R20.0 Anesthesia of skin; D64.9 Anemia, unspecified; I27.82 Chronic pulmonary embolism; Z79.899 Other long term (current) drug therapy; Z79.01 Long term (current) use of anticoagulants; Z86.718 Personal history of other venous thrombosis and embolism; Z85.46 Personal history of malignant neoplasm of prostate; Z87.891 Personal history of nicotine dependence
CPT/HCPCS: 36415; 70450; 70496; 70498; 70551; 71275; 80048; 80061; 81240; 81241; 82962; 83036; 84484; 85025; 85300; 85301; 85302; 85303; 86146; 86147; 93005; 93306; 93880; 97163; 97165; 99218; 99285; Q9967; A4216; G0378; G8988

== ENCOUNTER → 2018-05-18 09:50 | Outpatient (CLI) | payer MEDICARE, OTHER, SELFPAY ==
[2018-05-18 11:17] LABS: PSA,Total - Annual Screen < 0.01 ng/mL (0.00-4.00)
== END ==
PROVIDERS: Family Provider Preventive Medicine Occupational Medicine; PCP Preventive Medicine Occupational Medicine
DX: C61 Malignant neoplasm of prostate (principal)
CPT/HCPCS: 36415; 84153; G0103

== ENCOUNTER → 2018-06-08 07:58 | Outpatient (CLI) | payer MEDICARE, OTHER, SELFPAY ==
[2018-06-08 08:57] LABS: Thyroid Stim Hormone (TSH) 3.35 uIU/mL (0.358-3.74)
== END ==
PROVIDERS: Family Provider Preventive Medicine Occupational Medicine; PCP Preventive Medicine Occupational Medicine; Referring Provider Internal Medicine Critical Care Medicine; Visit Provider Internal Medicine Critical Care Medicine
DX: C34.90 Malignant neoplasm of unspecified part of unspecified bronchus or lung (principal); I26.99 Other pulmonary embolism without acute cor pulmonale; R06.02 Shortness of breath; D64.9 Anemia, unspecified
CPT/HCPCS: 84443

== ENCOUNTER → 2018-06-10 08:52 | Outpatient (CLI) | payer MEDICARE, OTHER, SELFPAY ==
--- NOTE | 2018-06-10 13:02 | PFT ---
INTRODUCTION: The patient is a 67-year-old male that presents for pulmonary function testing secondary to a diagnosis of shortness of breath. Respiratory therapy reports good patient effort. Bronchodilators were used during testing. INTERPRETATION: Forced expiration spirometry demonstrates the presence of a moderately severe large airways obstructive ventilatory defect. There was no significant response to aerosolized bronchodilators. Spirograms are of good quality do not plateau indicating slow emptying of the lungs. Body plethysmography was performed and reveals a decreased TLC to 5.16 L, 78% of predicted, indicative of a mild restrictive ventilatory defect. The remainder of the lung volumes are symmetrically reduced. Diffusing capacity by single breath CO is moderately reduced at 42% of predicted. When compared to previous pulmonary function studies dated January 2018, there has been significant reductions in the patient's FEV1 and DLCO. IMPRESSION: These pulmonary function studies demonstrate the presence of an irreversible moderately severe mixed ventilatory defect with associated symmetric reduction in diffusing capacity. There has been worsening in the patient's PFTs as noted above.
== END ==
PROVIDERS: Family Provider Preventive Medicine Occupational Medicine; PCP Preventive Medicine Occupational Medicine; Referring Provider Internal Medicine Critical Care Medicine; Visit Provider Internal Medicine Critical Care Medicine
DX: R06.02 Shortness of breath (principal); C34.90 Malignant neoplasm of unspecified part of unspecified bronchus or lung; I26.99 Other pulmonary embolism without acute cor pulmonale
CPT/HCPCS: 94060; 94726; 94729

== ENCOUNTER → 2018-06-18 08:51 | Outpatient (CLI) | payer MEDICARE, OTHER, SELFPAY ==
--- NOTE | 2018-06-18 08:53 | ECHOCS_ITS ---
Version 2 Reason For Study: DYSPNEA Procedure This was a 2D Doppler, Color Flow transthoracic echocardiogram. Myocardial strain analysis was performed in this exam to aid in the assessment of cardiac function. Strain analysis performed with suboptimal imaging. Contrast injection was performed. The study was technically difficult. Exam performed in department. Left Ventricle Normal LV size. Left ventricular systolic function is normal. The estimated ejection fraction is 60 %. Stage 2 diastolic dysfunction. No regional wall motion abnormalities noted. Right Ventricle Normal RV size. Normal systolic function. Atria Normal left atrium. Normal right atrium. Mitral Valve Normal mitral valve. Mild (1+) eccentric mitral valve insufficiency. Tricuspid Valve Normal tricuspid valve. Mild (1+) tricuspid valve insufficiency. Pulmonary artery systolic pressure is 45 mmHg. Aortic Valve Trisinus/trileaflet aortic valve. Mild focal aortic valve calcification. Pulmonic Valve Normal pulmonic valve. Great Vessels Normal aortic root. The pulmonary artery is normal size. Normal inferior vena cava. Pericardium/Pleural No pericardial effusion. Medication 20 gauge I.V. with prn adaptor inserted into right arm. Diluted definity 3ml given slow IV push to enhance endocardial definition. Previously negative bubble study. MMode/2D Measurements & Calculations RVDd: 3.8 cm Ao root diam: 3.0 cm LAV(MOD-bp): 55.8 ml LAV(MOD-bp) Indexed: 26.8 ml/m2 LAV(MOD-sp2): 51.3 ml LAV(MOD-sp4): 57.2 ml SV(MOD-sp4): 64.2 ml SV(sp4-el): 69.7 ml LVAd ap4: 31.6 cm2 EDV(MOD-sp4): 99.5 ml EDV(sp4-el): 106.6 ml LVAs ap4: 16.1 cm2 ESV(MOD-sp4): 35.3 ml ESV(sp4-el): 36.9 ml EF(MOD-sp4): 64.5 % EF(sp4-el): 65.4 % LA dimension(2D): 4.4 cm LA A4 area: 18.9 cm2 RA A4 area: 11.8 cm2 Time Measurements MV dec time: 0.24 sec Doppler Measurements & Calculations MV E max kiran: 80.1 cm/sec Lat Peak E' Kiran: 10.2 cm/sec Med Peak E' Kiran: 5.7 cm/sec MV A max kiran: 49.9 cm/sec E/E' lat: 7.9 E/E' med: 14.1 MV E/A: 1.6 Ao V2 max: 138.5 cm/sec LV V1 max: 138.7 cm/sec PA V2 max: 80.7 cm/sec Ao max P.7 mmHg LV V1 max P.7 mmHg TR max kiran: 312.8 cm/sec TR max P.0 mmHg Interpretation Summary Normal LV size. Left ventricular systolic function is normal. The estimated ejection fraction is 60 %. Stage 2 diastolic dysfunction. Mild (1+) eccentric mitral valve insufficiency. Mild (1+) tricuspid valve insufficiency. Contrast injection was performed. The global longitudinal strain = -17.6% (abnormal). Ordering Physician: Tavon Mullen Referring Physician: KATLYN MULLINS Performed By: Tere Jarrett RDCS, RVT
--- NOTE | 2018-06-18 09:47 | CT_ITS ---
STUDY: CT ABDOMEN AND PELVIS WITH CONTRAST REASON FOR EXAM: Male, 67 years old. Removal of the left lower lobe, prostate cancer, history of prostatectomy RADIATION DOSAGE (If Supplied By Facility): CTDIvol = ( 16.82 ) mGy, DLP = ( 1766.50 ) mGycm TECHNIQUE: Transaxial images were obtained from the dome of the diaphragm to the symphysis pubis without oral contrast. 100ML ml of Isovue 300 contrast was administered. Sagittal and coronal images were reconstructed. Individualized dose optimization techniques were used for this CT. COMPARISON: 03/09/2018 FINDINGS: Lung bases show chronic interstitial changes with loculated effusions in the left lung base which could be malignant. Dependent atelectasis noted in the right lung base. The visualized portions of the heart are within normal limits. There is decreased attenuation of the liver consistent with steatosis. Normal gallbladder and extrahepatic biliary system. Normal spleen. Normal pancreas. Normal bilateral adrenal glands. No obstructive uropathy, simple cysts in both kidneys. Normal visualized stomach. Normal small intestine. There are a few scattered colonic diverticula. There is nonspecific; also thickening of the sigmoid colon suggesting a colitis. There is no perforation, abscess, or significant pericolonic inflammation. The appendix is visualized and appears normal. Appendix best seen on coronal recon image 65. There is diffuse atherosclerotic calcification of the abdominal aorta, without a demonstrated aneurysm. Normal inferior vena cava. Normal retroperitoneum. Normal urinary bladder. Normal abdominal wall. There are diffuse degenerative changes of the visualized lumbar spine, and pelvis. CT/Abdomen/Pelvis WITH Contrast IMPRESSION: Scattered colonic diverticulosis. Submucosal thickening of the sigmoid colon suggests a colitis. No perforation or abscess Simple renal cysts Chronic interstitial changes in both lung parrish with loculated left pleural effusions and dependent atelectasis in the right lung base the effusions should be considered malignant until proven otherwise. Degenerative bony changes Electronically Signed: Collin Paz MD at 10:47 EST , Service support ,
--- NOTE | 2018-06-18 09:47 | CT_ITS ---
STUDY: CT CHEST WITH CONTRAST REASON FOR EXAM: Male, 67 years old. Lung and prostate cancer RADIATION DOSAGE (If Supplied By Facility): CTDIvol = ( ) mGy, DLP = ( ) mGycm TECHNIQUE: Transaxial imaging was performed following intravenous administration of 100ML ml of Isovue 300 contrast material. Individualized dose optimization techniques were used for this CT. COMPARISON: 03/22/2018 FINDINGS: Soft tissue windows show normal-appearing thyroid gland. Stable right axillary adenopathy with induration of the axillary fat. Stable borderline enlarged AP window lymph nodes. New since the previous study however are loculated left pleural effusions in the upper and lower aspects of the left hemithorax which should be considered malignant until proven otherwise. There is also increased size of subcarinal lymph nodes, and soft tissues in the right hilum which are narrowing the right mainstem bronchus when compared to the previous study. Findings suggest worsening adenopathy, likely metastatic along with likely malignant effusions. There are calcified coronary vessels. Lung windows show chronic interstitial changes with a noncalcified 5 mm nodule in the right lower lobe. There is interstitial edema in both lung parrish. Limited cuts through the upper abdomen show fatty infiltration of the liver and simple left renal cyst. Bony structures show degenerative changes without lytic or blastic bony lesion. CT/Chest WITH Contrast IMPRESSION: Worsening subcarinal, and right hilar adenopathy suspicious for worsening metastasis. New loculated left pleural effusions also should be considered malignant until present otherwise. Stable right axillary and AP window lymphadenopathy Chronic interstitial changes in both lung parrish with superimposed interstitial edema Electronically Signed: Collin Paz MD at 10:56 EST , Service support ,
== END ==
PROVIDERS: Family Provider Preventive Medicine Occupational Medicine; PCP Preventive Medicine Occupational Medicine; Referring Provider Internal Medicine Critical Care Medicine; Visit Provider Internal Medicine Critical Care Medicine
DX: C34.32 Malignant neoplasm of lower lobe, left bronchus or lung (principal); C61 Malignant neoplasm of prostate; I26.99 Other pulmonary embolism without acute cor pulmonale; R06.02 Shortness of breath
CPT/HCPCS: 71260; 74177; 93306; Q9957; Q9967; A4216; C8929

== ENCOUNTER → 2018-06-21 16:01 | Outpatient (CLI) | payer MEDICARE, OTHER, SELFPAY ==
[2018-06-21 15:00] VITALS: BMI 28.2
[2018-06-21 16:15] VITALS: PULSE 100; PULSE 103; PULSE 105; PULSE 109; PULSE 90; PULSE 92; PULSE 93; PULSE 98; O2SAT 85; O2SAT 90; O2SAT 91; O2SAT 92; O2SAT 97; O2SAT 98; O2SAT 99
--- NOTE | 2018-06-21 16:15 | CPS ---
Pt sent over from office per Danielle request for 6 minute walk. Pt tolerated walk well. States he is normally short of breath all of the time nowadays. Pt noticeably short of breath at rest and during walk. At 5 minutes pt SpO2 85% on room air and placed on 2l for remainder of walk. Danielle called and notified. Will fax order and face to face to [facility]. Radhames called and notified of new start for home O2 and per Jessica someone will be over very soon to set pt up for home.
--- NOTE | 2018-06-22 08:41 | WT_ITS ---
PSN 6 Minute Walk Test - 6 Minute Walk Test 6 Minute Walk Test: 6 Minute Walk Test PSN:6-Minute Walk Test Start: 06/21/18 16:36 Freq: Status: Active Protocol: RESP.6MINW Document 06/21/18 16:15 [facility] (Rec: 06/21/18 16:46 [facility] [id number]) 6 Minute Walk Test Date Performed 06/21/18 Time Performed 16:15 Height 5 ft 10 in Weight: 197 lb Weight in Pounds 197.[address]: Miguelina Saenz Assistive device used: None Pre-test Oxygen Delivery Method Room Air Pulse Ox (%) 97 Pulse Rate (60-100 beats/min) 92 Dyspnea Nahed Scale (0-10) 3 Exertion Nahed Scale (6-20) 6 1st minute Oxygen Delivery Method Room Air Pulse Ox (%) 92 Pulse Rate (60-100 beats/min) 93 Number of Rests Taken 0 2nd minute Oxygen Delivery Method Room Air Pulse Ox (%) 90 Pulse Rate (60-100 beats/min) 100 Number of Rests Taken 0 3rd minute Oxygen Delivery Method Room Air Pulse Ox (%) 91 Pulse Rate (60-100 beats/min) 103 H Number of Rests Taken 0 4th minute Oxygen Delivery Method Room Air Pulse Ox (%) 92 Pulse Rate (60-100 beats/min) 105 H Number of Rests Taken 0 5th minute Oxygen Delivery Method Room Air Pulse Ox (%) 85 Pulse Rate (60-100 beats/min) 109 H Number of Rests Taken 0 Reported Symptoms Increased Work of Breathing 6th minute Oxygen Flow Rate (L/min) (L/min) 2 Oxygen Delivery Method Nasal Cannula Pulse Ox (%) 98 Pulse Rate (60-100 beats/min) 98 Number of Rests Taken 0 Post-test Oxygen Flow Rate (L/min) (L/min) 2 Oxygen Delivery Method Nasal Cannula Pulse Ox (%) 99 Pulse Rate (60-100 beats/min) 90 Dyspnea Nahed Scale (0-10) 5 Exertion Nahed Scale (6-20) 13 Number of Rests Taken 0 Full Laps Walked 13 Partial Lap, Number of Tiles Walked 15 Total Distance Walked (ft) 782 06/21/18 16:15 (created 06/21/18 16:44) Cardiopulmonary Services by Shanta Michel Pt sent over from office per Danielle request for 6 minute walk. Pt tolerated walk well. States he is normally short of breath all of the time nowadays. Pt noticeably short of breath at rest and during walk. At 5 minutes pt SpO2 85% on room air and placed on 2l for remainder of walk. Danielle called and notified. Will fax order and face to face to [facility]. Radhames called and notified of new start for home O2 and per Jessica someone will be over very soon to set pt up for home. Initialized on 06/21/18 16:44 - END OF NOTE - Interpretation Interpretation: The patient ambulated 782 feet over the course of 6 minutes beginning on room air without assistive devices or breaks. Pretesting oxygen saturation was noted to be 97% on room air. With ambulation, the ramiro oxygen saturation occurred at minute 5 of testing and was 85%. The patient was placed on 2 L/min of supplemental oxygen and was able to complete the remainder of the test while maintaining oxygen saturations at or above 88%. This testing indicates a pulmonary limitation to exercise tolerance. - Recommendations Recommendations: 2 L/min of supplemental oxygen should be utilized with exertion.
== END ==
PROVIDERS: Family Provider Family Medicine; PCP Family Medicine; Referring Provider Nurse Practitioner Acute Care; Visit Provider Nurse Practitioner Acute Care
DX: R06.00 Dyspnea, unspecified (principal)
CPT/HCPCS: 94618

== ENCOUNTER → 2018-07-01 13:47 | Outpatient (CLI) | payer MEDICARE, OTHER, SELFPAY ==
[2018-07-01 12:29] VITALS: BMI 27.9
[2018-07-01 14:21] LABS: International Normalized Ratio 1.2; Prothrombin Time (Protime)PT. 15.4 SECONDS (11.7-14.9)
[2018-07-01 14:22] LABS: Partial Thromboplast Time 41.7 Seconds (24.1-36.2)
[2018-07-01 14:49] LABS: ALB/GLOB Ratio 0.5 RATIO (0.9-2.4); Globulin 5.7 g/dL (2.2-4.2); LDH 233 U/L (87-241); Protein, Total 8.7 g/dL (6.4-8.2)
--- OUTSIDE RECORDS SUMMARY | 2018-08-26 18:26 | XMS RPT_ITS ---
:1950 Author Organization OHIP Support Name Relationship Address Phone R Unavailable Unavailable Unavailable STOLL, SANDI Unavailable [address] + [place] [address] R Unavailable Unavailable Unavailable SOTLL, SANDI Unavailable [address] + [place] [address] R Unavailable Unavailable Unavailable STOLL, SANDI Unavailable [address] + [place] [address] R Unavailable Unavailable Unavailable STOLL, SANDI Unavailable [address] + [place] [address] R Unavailable Unavailable Unavailable STOLL, SANDI Unavailable [address] + [place] [address] R Unavailable Unavailable Unavailable STOLL, SANDI Unavailable [address] + [place] [address] R Unavailable Unavailable Unavailable STOLL, SANDI Unavailable [address] + [place] [address] R Unavailable Unavailable Unavailable STOLL, SANDI Unavailable [address] + [place] [address] R Unavailable Unavailable Unavailable STOLL, SANDI Unavailable [address] + [place] [address] R Unavailable Unavailable Unavailable STOLL, SANDI Unavailable [address] + [place] [address] R Unavailable Unavailable Unavailable STOLL, SANDI Unavailable [address] + [place] [address] R Unavailable Unavailable Unavailable STOLL, SANDI Unavailable [address] + [place] [address] R Unavailable Unavailable Unavailable STOLL, SANDI Unavailable [address] + [place] [address] R Unavailable Unavailable Unavailable STOLL, SANDI Unavailable [address] + [place] [address] R Unavailable Unavailable Unavailable STOLL, SANDI Unavailable [address] + [place] [address] R Unavailable Unavailable Unavailable STOLL, SANDI Unavailable [address] + [place] [address] R Unavailable Unavailable Unavailable STOLL, SANDI Unavailable [address] + [place] [address] R Unavailable Unavailable Unavailable STOLL, SANDI Unavailable [address] + [place] [address] R Unavailable Unavailable Unavailable STOLL, SANDI Unavailable [address] + [place] [address] R Unavailable Unavailable Unavailable STOLL, SANDI Unavailable [address] + [place] [address] R Unavailable Unavailable Unavailable STOLL, SANDI Unavailable [address] + [place] [address] R Unavailable Unavailable Unavailable STOLL, SANDI Unavailable [address] + [place] [address] R Unavailable Unavailable Unavailable STOLL, SANDI Unavailable [address] + [place] [address] R Unavailable Unavailable Unavailable STOLL, SANDI Unavailable [address] + [place] [address] R Unavailable Unavailable Unavailable STOLL, SANDI Unavailable [address] + [place] [address] R Unavailable Unavailable Unavailable STOLL, SANDI Unavailable [address] + [place] [address] R Unavailable Unavailable Unavailable STOLL, SANDI Unavailable [address] + [place] [address] R Unavailable Unavailable Unavailable STOLL, SANDI Unavailable [address] + [place] [address] R Unavailable Unavailable Unavailable STOLL, SANDI Unavailable [address] + [place] [address] R Unavailable Unavailable Unavailable STOLL, SANDI Unavailable [address] + [place] [address] R Unavailable Unavailable Unavailable STOLL, SANDI Unavailable [address] + [place] [address] R Unavailable Unavailable Unavailable STOLL, SANDI Unavailable [address] + [place] [address] R Unavailable Unavailable Unavailable STOLL, SANDI Unavailable [address] + [place] [address] R Unavailable Unavailable Unavailable STOLL, SANDI Unavailable [address] + [place] [address] R Unavailable Unavailable Unavailable STOLL, SANDI Unavailable [address] + [place] [address] R Unavailable Unavailable Unavailable STOLL, SANDI Unavailable [address] + [place] [address] R Unavailable Unavailable Unavailable STOLL, SANDI Unavailable [address] + [place] [address] R Unavailable Unavailable Unavailable STOLL, SANDI Unavailable [address] + [place] [address] R Unavailable Unavailable Unavailable STOLL, SANDI Unavailable [address] + [place] [address] R Unavailable Unavailable Unavailable STOLL, SANDI Unavailable [address] + [place] [address] R Unavailable Unavailable Unavailable STOLL, SANDI Unavailable [address] + [place] [address] R Unavailable Unavailable Unavailable STOLL, SANDI Unavailable [address] + [place] [address] R Unavailable Unavailable Unavailable STOLL, SANDI Unavailable [address] + [place] [address] R Unavailable Unavailable Unavailable STOLL, SANDI Unavailable [address] + [place] [address] R Unavailable Unavailable Unavailable STOLL, SANDI Unavailable [address] + [place] [address] R Unavailable Unavailable Unavailable STOLL, SANDI Unavailable [address] + [place] [address] R Unavailable Unavailable Unavailable STOLL, SANDI Unavailable [address] + [place] [address] R Unavailable Unavailable Unavailable STOLL, SANDI Unavailable [address] + [place] [address] R Unavailable Unavailable Unavailable STOLL, SANDI Unavailable [address] + [place] [address] R Unavailable Unavailable Unavailable STOLL, SANDI Unavailable [address] + [place] [address] R Unavailable Unavailable Unavailable STOLL, SANDI Unavailable [address] + [place] [address] R Unavailable Unavailable Unavailable STOLL, SANDI Unavailable [address] + [place] [address] R Unavailable Unavailable Unavailable STOLL, SANDI Unavailable [address] + [place] [address] R Unavailable Unavailable Unavailable STOLL, SANDI Unavailable [address] + [place] [address] R Unavailable Unavailable Unavailable STOLL, SANDI Unavailable [address] + [place] [address] R Unavailable Unavailable Unavailable STOLL, SANDI Unavailable [address] + [place] [address] R Unavailable Unavailable Unavailable STOLL, SANDI Unavailable [address] + [place] [address] R Unavailable Unavailable Unavailable STOLL, SANDI Unavailable [address] + [place] [address] R Unavailable Unavailable Unavailable STOLL, SANDI Unavailable [address] + [place] [address] R Unavailable Unavailable Unavailable STOLL, SANDI Unavailable [address] + [place] [address] R Unavailable Unavailable Unavailable STOLL, SANDI Unavailable [address] + [place] [address] R Unavailable Unavailable Unavailable STOLL, SANDI Unavailable [address] + [place] [address] R Unavailable Unavailable Unavailable STOLL, SANDI Unavailable [address] + [place] [address] R Unavailable Unavailable Unavailable STOLL, SANDI Unavailable [address] [phone] [place] [address] R Unavailable Unavailable Unavailable STOLL, SANDI Unavailable [address] [phone] [place] [address] R Unavailable Unavailable Unavailable STOLL, SANDI Unavailable [address] [phone] [place] [address] R Unavailable Unavailable Unavailable STOLL, SANDI Unavailable [address] [phone] [place] [address] R Unavailable Unavailable Unavailable STOLL, SANDI Unavailable [address] [phone] [place] [address] R Unavailable Unavailable Unavailable STOLL, SANDI Unavailable [address] [phone] [place] [address] Care Team Providers Name Role Phone Oracio Legerour Attending Unavailable Brown, Fernando Primary Care Unavailable Tavon Mullen Referring Unavailable Isckarus, Mansour Attending Unavailable Isckarus, Mansour Referring Unavailable Brown, Fernando Primary Care Unavailable Isckarus, Mansour Consulting Unavailable Nicole Garcia Attending Unavailable Tavon Mullen Attending Unavailable Brown, Fernando Referring Unavailable Corina Holbrook Attending Unavailable Isckarus, Mansour Referring Unavailable Brown, Fernando Primary Care Unavailable Isckarus, Mansour Consulting Unavailable Fritz Valencia Attending Unavailable Brown, Fernando Referring Unavailable Brown, Fernando Primary Care Unavailable Miguelina Saenz Attending Unavailable Brown, Fernando Referring Unavailable Fritz Valencia Attending Unavailable Fritz Valencia Referring Unavailable Brown, Fernando Primary Care Unavailable Susanna, Katlyn Primary Care Unavailable Estrella, Braulio Admitting Unavailable White, Skye Attending Unavailable Isckarus, Mansour Consulting Unavailable Estrella, Braulio Admitting Unavailable Susanna, Katlyn Primary Care Unavailable Estrella, Braulio Consulting Unavailable Enrique Lechuga Attending Unavailable Estrella, Braulio Admitting Unavailable White, Skye Attending Unavailable Susanna, Katlyn Primary Care Unavailable White, Skye Consulting Unavailable Estrella, Braulio Admitting Unavailable Yusef, Corina Attending Unavailable Susanna, Katlyn Primary Care Unavailable Isckarus, Mansour Consulting Unavailable White, Skye Consulting Unavailable Estrella, Braulio Admitting Unavailable White, Skye Attending Unavailable Susanna, Katlyn Primary Care Unavailable Isckarus, Mansour Consulting Unavailable White, Skye Consulting Unavailable Isckarus, Mansour Attending Unavailable Sebas, Tavon Referring Unavailable Brown, Fernando Primary Care Unavailable Isckarus, Mansour Consulting Unavailable Isckarus, Mansour Attending Unavailable Sebas, Tavon Referring Unavailable Brown, Fernando Primary Care Unavailable Isckarus, Mansour Consulting Unavailable Isckarus, Mansour Attending Unavailable Sebas Tavon Referring Unavailable Brown, Fernando Primary Care Unavailable Isckarus, Mansour Consulting Unavailable Trish Yates Attending Unavailable Isckarus, Mansour Attending Unavailable Sebas, Tavon Referring Unavailable Brown, Fernando Primary Care Unavailable Isckarus, Mansour Consulting Unavailable SebasTavon soliman Attending Unavailable Brown, Fernando Referring Unavailable Chiquitabul Katlyn Attending Unavailable Isckarus, Mansour Attending Unavailable Sebas, Tavon Referring Unavailable Brown, Fernando Primary Care Unavailable Isckarus, Mansour Consulting Unavailable MAGGIE STONE Attending Unavailable MAGGIE STONE Referring Unavailable Brown, Fernando Primary Care Unavailable Isckarus, Mansour Consulting Unavailable Yusef, Corina Attending Unavailable Sebas, Tavon Referring Unavailable Brown, Fernando Primary Care Unavailable Isckarus, Mansour Consulting Unavailable Sebas, Tavon Attending Unavailable Sebas Tavon Referring Unavailable Susanna, Katlyn Primary Care Unavailable SebasTavon soliman Attending Unavailable Sebas, Tavon Referring Unavailable Brown, Fernando Primary Care Unavailable Sebas, Tavon Attending Unavailable Brown, Fernando Referring Unavailable Brown, Fernando Primary Care Unavailable Isckarus, Mansour Attending Unavailable Isckarus, Mansour Referring Unavailable Brown, Fernando Primary Care Unavailable Alistair Beard Consulting Unavailable David Mock D.O. Attending Unavailable Sebas, Tavon Referring Unavailable David Mock D.O. Attending Unavailable Sebas, Tavon Referring Unavailable Isckarus, Mansour Attending Unavailable Brown, Fernando Primary Care Unavailable Isckarus, Mansour Consulting Unavailable Brown, Fernando Referring Unavailable Brown, Fernando Primary Care Unavailable Kotsonis, Trung F Admitting Unavailable Oleghe, Ifijen Attending Unavailable Miguel, Andreea S. Consulting Unavailable Kotsonis, Trung F Admitting Unavailable Brown, Fernando Primary Care Unavailable Kotsonis, Trung F Consulting Unavailable Kotsonis, Trung F Attending Unavailable Kotsonis, Trung F Admitting Unavailable Brown, Fernando Primary Care Unavailable Miguel, Andreea S. Consulting Unavailable Lisette Brunson Attending Unavailable Oleghe, Ifijen Consulting Unavailable Fritz Zamora Attending Unavailable Kotsonis, Trung F Referring Unavailable Sebas, Tavon Attending Unavailable Brown, Fernando Referring Unavailable Kash Rollins Attending Unavailable Kotsonis, Trung F Referring Unavailable MAGGIE STONE Attending Unavailable MAGGIE STONE Referring Unavailable Susanna, Katlyn Primary Care Unavailable Sebas, Tavon Attending Unavailable Susanna, Katlyn Referring Unavailable Sebas, Tavon Attending Unavailable Sebas, Tavon Referring Unavailable Susanna, Katlyn Primary Care Unavailable SebasTavon soliman Attending Unavailable Sebas, Tavon Referring Unavailable Susanna, Katlyn Primary Care Unavailable Isckarus, Mansour Attending Unavailable Sebas, Tavon Referring Unavailable Brown, Fernando Primary Care Unavailable Isckarus, Mansour Consulting Unavailable Sebas, Tavon Attending Unavailable Sebas, Tavon Referring Unavailable Susanna, Katlyn Primary Care Unavailable Rory Wall Attending Unavailable Sebas, Tavon Referring Unavailable Susanna, Katlyn Primary Care Unavailable Sebas, Tavon Consulting Unavailable Isckarus, Mansour Attending Unavailable Sebas, Tavon Referring Unavailable Brown, Fernando Primary Care Unavailable Isckarus, Mansour Consulting Unavailable David Mock D.O. Attending Unavailable Sebas, Tavon Referring Unavailable Letty, Miguelina Attending Unavailable Brown, Fernando Referring Unavailable Saenz, Miguelina Attending Unavailable Susanna, Katlyn Referring Unavailable Saenz, Miguelina Attending Unavailable Saenz, Miguelina Referring Unavailable Brown, Fernando Primary Care Unavailable Saenz, Miguelina Attending Unavailable Saenz, Miguelina Referring Unavailable Susanna, Katlyn Primary Care Unavailable Saenz, Miguelina Attending Unavailable Brown, Fernando Referring Unavailable Isckarus, Mansour Attending Unavailable Sebas, Tavon Referring Unavailable Brown, Fernando [facility] Unavailable Dago Leger Consulting Unavailable Miguelina Saenz Attending Unavailable Miguelina Saenz Referring Unavailable Brown, [facility] Unavailable [facility] Unavailable Ashelfah, Ghasem Admitting Unavailable Moodispaw, Kash Consulting Unavailable Skye Haro Attending Unavailable Sebas, Tavon Consulting Unavailable Yusef, Corina Consulting Unavailable Tisha Raza Consulting Unavailable Ashelfah, Ghasem Admitting Unavailable Ashelfah, Ghasem Attending Unavailable [facility] Unavailable Moodispaw, Kash Consulting Unavailable Ashelfah, Ghasem Consulting Unavailable Ashelfah, Ghasem Admitting Unavailable Moodispamisha, Kash Attending Unavailable [facility] Unavailable Moodispaw, Kash Consulting Unavailable Ashelfah, Ghasem Consulting Unavailable Ashelfah, Ghasem Admitting Unavailable Ashelfah, Ghasem Attending Unavailable [facility] Unavailable Moodispaw, Kash Consulting Unavailable Sebas, Tavon Consulting Unavailable Ashelfah, Ghasem Consulting Unavailable Ashelfah, Ghasem Admitting Unavailable Moodiswilly, Kash Attending Unavailable [facility] Unavailable Moodispaw, Kash Consulting Unavailable Sebas, Tavon Consulting Unavailable Ashelfah, Ghasem Consulting Unavailable Ashelfah, Ghasem Admitting Unavailable David Mock D.O. Attending Unavailable [facility] Unavailable Moodispamisha, Kash Consulting Unavailable Sebas, Tavon Consulting Unavailable Yusef, Corina Consulting Unavailable White, Skye Consulting Unavailable Alistair Beard Attending Unavailable Ashelfah, Ghasem Admitting Unavailable David Mock D.O. Attending Unavailable [facility] Unavailable Moodispamisha, Kash Consulting Unavailable Sebas, Tavon Consulting Unavailable Yusef, Corina Consulting Unavailable White, Skye Consulting Unavailable Ashelfah, Ghasem Admitting Unavailable Moodispamisha, Kash Attending Unavailable [facility] Unavailable Moodispaw, Kash Consulting Unavailable Sebas, Tavon Consulting Unavailable Yusef, Corina Consulting Unavailable White, Skye Consulting Unavailable Ashelfah, Ghasem Admitting Unavailable WhiteSkye Attending Unavailable [facility] Unavailable Moodispaw, Kash Consulting Unavailable Sebas, Tavon Consulting Unavailable Yusef, Corina Consulting Unavailable White, Skye Consulting Unavailable Ashelfah, Ghasem Admitting Unavailable David Mock D.O. Attending Unavailable Katlyn Mullins Primary Care Unavailable Moodispaw, Kash Consulting Unavailable Sebas, Tavon Consulting Unavailable Yusef, Corina Consulting Unavailable White, Skye Consulting Unavailable Ashelfah, Ghasem Admitting Unavailable White, Skye Attending Unavailable SusannaKatlyn good Primary Care Unavailable Moodispaw, Kash Consulting Unavailable Sebas, Tavon Consulting Unavailable Yusef, Corina Consulting Unavailable White, Skye Consulting Unavailable David Mock D.O. Attending Unavailable Miguelina Saenz Referring Unavailable Ashelfah, Ghasem Admitting Unavailable Moodispaw, Kash Attending Unavailable Katlyn Mullins Primary Care Unavailable Moodispaw, Kash Consulting Unavailable Sebas, Tavon Consulting Unavailable Yusef, Corina Consulting Unavailable White, Skye Consulting Unavailable Ashelfah, Ghasem Admitting Unavailable White, Skye Attending Unavailable SusannaKatlyn good Primary Care Unavailable Moodispaw, Kash Consulting Unavailable Sebas, Tavon Consulting Unavailable Yusef, Corina Consulting Unavailable Ry, Tisha Consulting Unavailable White, Skye Consulting Unavailable Ashelfah, Ghasem Admitting Unavailable David Mock D.O. Attending Unavailable Susanna, Katlyn Primary Care Unavailable Moodispaw, Kash Consulting Unavailable Sebas, Tavon Consulting Unavailable Yusef, Corina Consulting Unavailable Ry, Tisha Consulting Unavailable White, Skye Consulting Unavailable Yusef, Corina Attending Unavailable Sebas, Tavon Referring Unavailable PROBLEMS PROBLEMS DATE TYPE CONDITION / CODE ATTENDING STATUS SOURCE 07/12/2018 Unknown C61 - Malignant Yusef, Corina Active [place] neoplasm of Community prostate / Hospital C61(ICD-10) Repository 07/12/2018 Unknown C34.32 - Malignant Yusef, Corina Active [place] neoplasm of lower Community lobe, left Hospital bronchus or lung / Repository C34.32(ICD-10) 07/12/2018 Unknown 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, 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 / Hospital C79.51(ICD-10) Repository 07/12/2018 Unknown J91.0 - Malignant Yusef, Corina Active [place] pleural effusion / Community J91.0(ICD-10) Hospital Repository 07/12/2018 Unknown D63.8 - Anemia in Yusef, Corina Active [place] other chronic Community diseases Hospital classified Repository elsewhere / D63.8(ICD-10) 07/13/2018 Unknown J90 - Pleural Saenz, Active [place] effusion, not Miguelina Community elsewhere Hospital classified / Repository J90(ICD-10) 07/02/2018 Unknown I63.9 - Cerebral Saenz, Active [place] infarction, Miguelina Community unspecified / Hospital I63.9(ICD-10) Repository 07/01/2018 Unknown R06.02 - Shortness Saenz, Active [place] of breath / Miguelina Community R06.02(ICD-10) Hospital Repository 06/21/2018 Unknown R06.00 - Dyspnea, Saenz, Active [place] unspecified / Miguelina Community R06.00(ICD-10) Hospital Repository 06/18/2018 Unknown I26.99 - Other Mae, York Active [place] pulmonary embolism Community without acute cor Hospital pulmonale / Repository I26.99(ICD-10) 07/05/2018 Unknown Z23 - Encounter Alistair Beard Active [place] for immunization / Community Z23(ICD-10) Hospital Repository 07/12/2018 Unknown C34.90 - Malignant Sebas, Tavon Active [place] neoplasm of Community unspecified part Hospital of unspecified Repository bronchus or lung / C34.90(ICD-10) 06/08/2018 Unknown D64.9 - Anemia, Sebas, Tavon Active [place] unspecified / Community D64.9(ICD-10) Hospital Repository 04/28/2018 Unknown I26.09 - Other Sebas, Tavon Active [place] pulmonary embolism Community with acute cor Hospital pulmonale / Repository I26.09(ICD-10) 04/26/2018 Unknown R07.9 - Chest Zamora, Fritz Active [place] pain, unspecified Community / R07.9(ICD-10) Hospital Repository 02/04/2018 Unknown C34.92 - Malignant Sebas, Tavon Active [place] neoplasm of Community unspecified part Hospital of left bronchus Repository or lung / C34.92(ICD-10) 11/25/2017 Unknown J98.9 - Celeninrobert Katlyn Active [place] Respiratory Community disorder, Hospital unspecified / Repository J98.9(ICD-10) 09/21/2017 Unknown C77.9 - Secondary Yusef, Corina Active [place] and unspecified Community malignant neoplasm Hospital of lymph node, Repository unspecified / C77.9(ICD-10) PROCEDURES PROCEDURES No Procedure Records FoundRESULTS RESULTS LEAD ELECTROCARDIOGRAM Observed: 07/08/2018 Status: F Source: [place] 2:16 PM [facility] REPOSITORY [facility] Cardiovascular Services [address] [place] [address] 12 Lead EKG 07/04/18 0601 MR#: [id number] Acct: [id number] Name: SHAILA STOLL Rep #: [id number] : 1950 67 From: Kash Rollins MD Attending Dr: Skye Haro Status: DIS IN Ordering Dr: Doc Higuera MD Date: 07/04/18 Location: [facility] Sex: M C Admitted: 07/03/18 Test Reason : AM EKG Blood Pressure : / mmHG Vent. Rate : 087 BPM Atrial Rate : 087 BPM P-R Int : 136 ms QRS Dur : 080 ms QT Int : 370 ms P-R-T Axes : 060 003 015 degrees QTc Int : 445 ms Normal sinus rhythm Low voltage QRS (limb leads) Confirmed by KAREN JOHNSON, KASH ([id number]), food editor SUMA VANEGAS ([id number]) on 07/08/2018 2:15:52 PM Referred By: DAMION Confirmed By:KASH ROLLINS MD 07/08/18 1415 Date Kash Rollins MD CC: Skye Haro; Doc Higuera; Katlyn Mullins DO Signed DISCHARGE SUMMARY Observed: 07/07/2018 Status: F Source: [place] 10:42 AM [facility] REPOSITORY [facility] Medical Records Department [address] [place] [address] Discharge Summary 07/07/18 1029 MR#: [id number] Acct: [id number] Name: STOLLSHAILA Rep #: [id number] : 1950 67 From: Skye Haro PCP: Katlyn Mullins DO Status: ADM IN Y Location: [place] [address] Discharge Date and Diagnosis - Problem List Patient Problems: Active and Suspected Problems (Last Updated 07/03/18 @ 12:52 by Doc Higuera MD) NSTEMI (non-ST elevated myocardial infarction) (Acute) Chest pain (Acute) Date of Admission: 07/03/18 Date of Discharge: 07/07/18 - Primary Discharge Diagnosis Active and Suspected Problems (Last Updated 07/03/18 @ 12:52 by Doc Higuera MD) (1) Acute NSTEMI (2) History of non-small cell lung cancer with recurrent L pleural effusion w/ Ongoing Dyspnea w/ Pathology w/ Cytology + Non-small Cell Lung CA, Recurrent now Stage IV Lung CA (3) History of DVT, PE (4) History of Prostate CA (5) Chronic COPD (6) AOCD (7) CODE status: DNR-CC with transition to Hospice Program - Secondary Discharge Diagnosis Chronic Problems (Last Updated 07/03/18 @ 12:52 by Doc Higuera MD) COPD (chronic obstructive pulmonary disease) (Chronic) Prostate cancer (Chronic) surgery , R.T. 2014 PSA relapse 2015 ADT Multiple sclerosis (Chronic) left leg weakness Cancer of lower lobe of left lung (Chronic) Regional lymph node metastasis present (Chronic) Anemia (Chronic) Adenocarcinoma of lung (Chronic) Hyperlipidemia (Chronic) Hypertension (Chronic) History of prostatectomy (Chronic) 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) [facility] 07/03/17 [address] Course [address] Treatment Dr. Rollins Cardiology Dr. Leger Oncology Dr. Mock Pulmonary Dr. Raza Hem/Onc Operations: None Procedures: EKG, Thoracentesis Summary of Care Provided: The patient is a 67 y/o M w/ PMHx: Chronic COPD, History of Non small cell Lung CA, HTN, HLD, History of Prostate CA who presented to the [facility] ED on 07/03/18 secondary to ongoing fatigue, weakness, dyspnea worse with any exertion s/p recent outpatient L sided thoracentesis. EKG in ED w/ no acute evidence of ischemia, notable pulmonary process bilateral effusions now status post thoracenteses in addition to recent CTPA with progressing pulmonary emboli stasis flow. Trop elevated, 1.810-->1.920-->1.770. Patient maintained on a monitored bed, serial cardiac enzymes as noted and repeat EKGs. Magnesium requested. Maintained on heparin drip given oral anticoagulant held w/ recent thoracenteses with transition back to lovenox therapeutic regimen given no marked fluid noted on repeat US for consideration repeat thoracentesis. Continued medical management w/ asa, BB, statin w/ AM FLP obtained with noted triglycerides 108, cholesterol 165, LDL 108, VLDL 22, HDL 35. Cardiology consulted, discussed possibility for cardiac catheterization; however, currently pulmonary presentation complicates presentation and pulmonary medicine advising against catheterization at this time to which cardiology is amenable. ECHO w/ normal LV systolic function, EF 70%, mildly enlarged LA, trivial MDI, trivial TBI, mild focal AV thickening, trivial PVI, no evidence diastolic dysfunction. Upon admission, CT abdomen and pelvis upon presentation with noted worsening consolidations and effusions at the left lung base and nodular changes at the right lung base with partially visualized right hilar and subcarinal lymphadenopathy. CTPA with stable multiple moderate sized left pleural effusion, few gas bubbles present in the fluid along the posterior lateral left mid chest raising some concern about possibility of evolving empyema with stable partial collapse of left lower lobe, worsened infrahilar right base peribronchial thickening and ill-defined stranding and inflammatory change or volume loss, stable nodule in the posterior tory-referral right lower lobe, occasional calcified granulomata, grossly stable mediastinal, subcarinal and right hilar lymphadenopathy with confluent soft tissue density encasing the central right bronchovascular structures, incompletely occlusive thrombus in the right lower lobe pulmonary artery which is progressed into the segmental right lower lobe branches reflecting local disease secondary to stasis flow rather than any acute pulmonary emboli. Oncology consulted following, per history noted to have been diagnosed with adenocarcinoma left lower lobe in May 2017 status post left lower lobe sleeve lobectomy at [facility] status post adjuvant systemic chemotherapy with carboplatin and Alimta is 4 cycles completed in December 2017 with follow-up PET and CT scans in June consistent with recurrent disease in the mediastinal lymph nodes and likely malignant pleural effusion with also evidence for bony metastatic disease in the pelvis. 07/02/18 L thoracentesis performed, cytology consistent with recurrent non-small cell lung cancer and repeat CXR AM with moderate sized pleural effusion despite recent thoracentesis. Initially, was going to attempt repeat thoracentesis L side; however, repeat US imaging per Radiology and review per Pulmonary with no marked fluid to remove. Given patient severe symptomatic dyspnea even at rest but severe with exertion, discussed CODE status at length and current poor prognosis, patient interested in comfort measures. Hospice team consulted and made aware of patient status and that he would benefit from inpatient hospice facility stablization prior to transition to home with hospice. DAY OF DISCHARGE PROGRESS NOTE: Subjective: Patient without acute event overnight per self and nursing report. Patient remains dyspneic at rest although does appear comfortable but notes more severe with any movement attempts. Discussed plan of care at length again with family preference to continue with hospice and also noted no need to further discuss treatment plans or options with oncology or cardiology. Again, reviewed concept of palliative radiation for the adenopathy and noted review and discussions w/ Pulmonary felt this would likely not yield any increase in comfort at this time. Patient denies fever, chills, nausea, emesis, abdominal pain, chest pain. Patient agreeable to discharge to hospice facility. Objective: T 98.2, heart rate 63, BP 146/85, respiratory rate 16, 96% room air. Physical Examination: General: awake, alert, oriented x 3 and cooperative, seated upright in bed in no apparent distress, fatigued appearance. Skin: normal color, turgor, no icterus, cyanosis. HEENT: AT/NC, EOMI, PERRLA, MMM. Lungs: Diminished breath sounds bilaterally, greater bases, effort increased with conversational attempts, no wheezing, crackles or rhonchi noted. Heart: Regular rate and rhythm; no gallop, rub audible. Abdomen: soft, NTTP, ND, normal BS. Extremities: no cyanosis, clubbing, trace BL ankle edema. Neurological: patient awake, alert, oriented x 3; cognitive function intact; pupils equally reactive to light and accomodation; cranial nerves II-XII grossly normal, moving all 4 extremities, no focal deficits, strength severely globally decreased. Psychiatric: affect appears fatigued, no acute evidence of depressive or anxiety feelings. Assessment and Plan: Please see hospital summary above. Patient Problems: Active and Suspected Problems (Last Updated 07/03/18 @ 12:52 by Doc Higuera MD) NSTEMI (non-ST elevated myocardial infarction) (Acute) Chest pain (Acute) - Physical Exam Vital Signs Temp Pulse Resp BP Pulse Ox 99.1 F 91 20 H 104/64 94 07/07/18 03:20 07/07/18 06:55 07/07/18 03:20 07/07/18 03:20 07/07/18 07:34 Oxygen Flow Rate (L/min) 2 Oxygen Delivery Method Nasal Cannula Weight: 185 lb 13.595 oz Body Mass Index (BMI) 26.6 Intake and Output for Last 24 Hours Intake Total 1356.3 / 1356.3 1098.0 / 1098.0 100 / 100 Balance 1356.3 / 1356.3 1098.0 / 1098.0 100 / 100 Laboratory Tests Past 24 Hrs Home Medications: Medications to take at Discharge Leuprolide Acetate [Lupron Depot (Lupaneta)] 3.75 mg IM Q90D #0 10/02/17 Bisoprolol Fumarate [Zebeta] 10 mg PO DAILY #0 11/03/17 Handicap Placard #1 ea 02/18/18 Aspirin [Aspirin, Baby] 81 mg PO DAILY@0800 #30 tab.chew 04/01/18 enoxaparin 150 mg/mL subcutaneous syringe 150 mg SC DAILY #30 ml 04/28/18 albuterol sulfate concentrate 2.5 mg/0.5 mL solution for nebulization 2.5 mg INHALATION Q4H PRN #180 ea 07/02/18 Primary Care Physician: Katlyn Mullins DO [Primary Care Provider] - Medical Necessity - Tobacco Use Smoking Status: Former smoker Meaningful Use Info Meaningful Use Diagnoses (Choose all that apply): AMI - AMI Aspirin given w/in 24hrs of arrival?: Yes ASA at discharge?: Yes Statins at discharge?: Yes Yusuf/ARB at discharge?: No Reason Yusuf/ARB not ordered:: Hypotension Beta Lindsay at discharge?: Yes Done w/ Acute IL measure.: Yes Code Visit Inpatient E AND M: [id number] Disch Hosp 07/07/18 1042 <Electronically signed by Skye Haro > Date Skye Haro Cosigner Signature (if applicable): Date CC: Skye Haro; Katlyn Mullins DO Signed CBC W/DIFF, AUTOMATED Collected: 07/07/2018 Status: F Source: [place] 6:05 AM [facility] [place] REPOSITORY TYPE CODE TESTS RESULT OUT OF RANGE REFERENCE UNITS LAB L100.1000 4.4-11.0 K/mm3 Normal WBC 10.6 LAB L100.1200 4.6-6.2 M/mm3 Low RBC 2.75 LAB L100.1300 13.0-16.5 g/dl Low HGB 8.2 LAB L100.1400 40-54 % Low HCT 25.9 LAB L100.1500 80-94 fL High MCV 94.2 LAB L100.1600 27.0-32.0 pg Normal MCH 29.8 LAB L100.1700 32-36 g/gl Low MCHC 31.7 LAB L100.1810 11.6-14.6 % High RDW CV 15.4 LAB L100.1820 35.1-43.9 fl High RDW SD 50.5 LAB L100.1900 150-450 K/mm3 Normal PLT 337 LAB L100.2000 6.2-12.0 fl Normal MPV 9.4 LAB L100.2100 47-70 % High NEUT% 74.2 LAB L100.2200 19-41 % Low LY% 9.7 LAB L100.2300 0-10 % High MONO% 13.1 LAB L100.2400 0-5 % Normal EO% 2.0 LAB L100.2500 0-1 % Normal BASO% 0.2 LAB L100.2550 0.0-0.9 % Normal IM GRAN % 0.800 Result Comment: IG% - Immature Granulocytes (promyelocytes, myelocytes and metamyelocytes) > 1% indicates that a LEFT SHIFT is Present. LAB L100.2620 2.0-7.7 X10 3/uL High Absolute Neut 7.9 LAB L100.2720 0.83-4.51 X10 3/ul Normal Absolute Lymph 1.03 Performed By: #### L100.0100 #### [facility] [address] [place], [place], [id number] BASIC METABOLIC Collected: 07/07/2018 Status: F Source: [place] PROFILE (BMP) 6:05 AM [facility] [place] REPOSITORY TYPE CODE TESTS RESULT OUT OF RANGE REFERENCE UNITS LAB L501.0100 74-106 mg/dL Normal GLU 92 Result Comment: Please note revised GLUCOSE reference range effective 2017. LAB L501.1000 7-18 mg/dL Normal BUN 16 LAB L501.1100 0.70-1.30 mg/dL Normal CREAT,SERUM 0.91 Result Comment: The validity of the calculated GFR AND GFRAA in patients over 70 years has not been determined. Clinical correlation is essential. LAB L501.1110 >60 mL/min Normal EST GFR 89 Result Comment: Non- GFR Calc LAB L501.1115 >60 mL/min Normal EST GFR - AA 107 Result Comment: GFR Calc LAB L501.1255 ml/min Normal Estimated CRCL 83.56 LAB L501.1300 10-20 RATIO Normal BUN/CRE 17.6 LAB L501.2200 8.5-10 mg/dL Low .1 CA 8.1 LAB L501.5300 136-14 mmol/L Low 5 NA 134 LAB L501.5600 3.5-5. mmol/L Normal 1 K 4.3 LAB L501.5900 98-107 mmol/L Normal CL 100 LAB L501.6100 21.0-3 mmol/L Normal 2.0 CO2 27.0 LAB L501.6200 5-15 Normal GAP 7 Performed By: #### L500.2500 #### [facility] [address] [place], [place], [id number] PROTHROMBIN TIME W/INR Collected: 07/07/2018 Status: F Source: [place] 6:05 AM [facility] [place] REPOSITORY TYPE CODE TESTS RESULT OUT OF RANGE REFERENCE UNITS LAB L300.4150 11.7-14.9 SECONDS High PROTIME 15.4 LAB L300.4200 Normal INR 1.2 Performed By: #### L300.3900, L300.4310 #### [facility] [address] [place], [address] PARTIAL THROMBOPLAST Collected: 07/07/2018 Status: F Source: [place] TIME 6:05 AM [facility] [place] REPOSITORY TYPE CODE TESTS RESULT OUT OF REFERENCE UNITS RANGE LAB L300.4310 24.1-36.2 Seconds High PTT 60.0 Performed By: #### L300.3900, L300.4310 #### [facility] [address] [place], [address] 12 LEAD ELECTROCARDIOGRAM Observed: 07/06/2018 Status: F Source: [place] 2:24 PM [facility] [place] REPOSITORY [facility] Cardiovascular Services [address] [place] [address] 12 Lead EKG 07/03/18 0935 MR#: [id number] Acct: [id number] Name: SHAILA STOLL Rep #: [id number] : 1950 67 From: Kash Rollins MD Attending Dr: Skye Haro Status: ADM IN Ordering Dr: Grazyna Hernandez DO Date: 07/03/18 Location: [facility] Sex: M C Admitted: 07/03/18 Test Reason : ABDOMINAL PAIN Blood Pressure : / mmHG Vent. Rate : 083 BPM Atrial Rate : 083 BPM P-R Int : 134 ms QRS Dur : 082 ms QT Int : 378 ms P-R-T Axes : 040 002 012 degrees QTc Int : 444 ms Normal sinus rhythm Low voltage QRS (limb leads) Confirmed by KASH ROLLINS MD ([id number]), food editor SUMA VANEGAS ([id number]) on 07/06/2018 2:24:13 PM Referred By: RU Confirmed By:KASH ROLLINS MD 07/06/18 1424 Date Kash Rollins MD CC: Skye Haro; Grazyna Hernandez DO; Katlyn Mullins DO Signed CHEST Observed: 07/06/2018 Status: F Source: [place] 1:50 PM [facility] [place] REPOSITORY [facility] Imaging Services [address] [place] [address] Chest MR#: [id number] Acct: [id number] Name: SHAILA STOLL Rep #: [id number] : 1950 M 67 From: Chacho Babcock MD PCP: Katlyn Mullins DO Status: ADM IN Study: Chest Date of Exam: 07/06/18 Exam# [id number] Ordering Dr: Skye Haro STUDY: ASSESSMENT OF THE LEFT PLEURAL EFFUSION. REASON FOR EXAM: Male, 67 years old. Possible left pleural effusion. TECHNIQUE: Imaging of the left pleural cavity was performed for assessment of effusion and possible pleurocentesis. COMPARISON: Comparison is made with prior study dated July 02, 2018. FINDINGS: There is a small left pleural effusion. This is too small for safe thoracentesis. US/Chest IMPRESSION: Small left pleural effusion. This is too small for a left thoracentesis. Electronically Signed: Chacho Babcock MD at 14:51 EST Tel [phone], Service support , CC: Skye Haro; Katlyn Mullins DO Flash Ranging Crewmember: Signed CONSULTATION Observed: 07/06/2018 Status: F Source: [place] 10:09 AM [facility] [place] REPOSITORY [facility] Medical Records Department [address] [place] [id number] Consultation 07/05/18 1533 MR#: [id number] Acct: [id number] Name: SHAILA STOLL Rep #: [id number] : 1950 67 From: Corina Holbrook NP-Kriss PCP: Katlyn Mullins DO Status: ADM IN Location: [place] [address] Subjective Date of Service:: 07/05/18 Chief Complaint: H/o adenocarcinoma-lung, pleural effusion History of Present Illness: Mr. Shaila Stoll is a pleasant 67-year-old gentleman wwith smoker who quit over 20 years ago after a 30+ pack year smoking who was diagnosed with adenocarcinoma of the LLL 05/19/17. On July 03, 2017 he underwent left lower lobe sleeve lobectomy at [facility] by Dr. Alfonso. He is s/p adjuvant systemic chemotherapy (Carboplatin/Alimta x 4 cycles) completed 12/15/17. On surveillance reports increasing dyspnea and CT scan June 18, followed by a PET/CT June 28, 2018 findings are consistent with recurrent disease in the mediastinal lymph nodes and likely malignant pleural effusion. There is also evidence for bony metastatic disease in the pelvis (either from lung or high risk prostate). Of significance, PMH also + for prostate cancer presenting with an elevated PSA of 42. Patient is status post radical prostatectomy in October 2014 for a Aretha score 9 adenocarcinoma involving about 80% of the prostate with extra prostatic extension extensive positive margins and lymphovascular invasion as well as tory-neural invasion. Following his surgery patient underwent adjuvant radiation therapy concluded in 2014. At the completion of his treatment his PSA was less than 0.1 however by 2015 PSA relapse prompted initiation of ADT by his urologist which he continues to date (Benito) with the most recent PSA of less than 0.1. Patient underwent thoracentesis in the ambulatory setting 07/02/18 and next day developed vague abd pain and extreme fatigue which prompted presentation to [facility] ED. Found to have experienced NSTEMI and subsequently admitted for management. Upon entering the room, patient is awake in bed. During assessment, visibly SOB on 2 L per nc. Past Medical History: Chronic Problems (Last Updated 07/03/18 @ 12:52 by Doc Higuera MD) COPD (chronic obstructive pulmonary disease) (Chronic) Prostate cancer (Chronic) surgery , R.T. 2014 PSA relapse 2016 ADT Multiple sclerosis (Chronic) left leg weakness Cancer of lower lobe of left lung (Chronic) Regional lymph node metastasis present (Chronic) Anemia (Chronic) Adenocarcinoma of lung (Chronic) Hyperlipidemia (Chronic) Hypertension (Chronic) History of prostatectomy (Chronic) 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) [facility] 07/03/17 Past Medical/Surgical History: Past Medical History - Most Recent Inpatient Visit Past Medical History Start: 07/03/18 11:43 Text: Status: Complete Freq: ONCE Protocol: Document 07/03/18 12:57 [place] (Rec: 07/03/18 13:03 [place] [id number]) BMI Required to complete [facility] What is Patient's BMI 26.6 Neurologic Medical History Hx Stroke/TIA Yes Hx Dementia/Alzheimer's No Hx Parkinson's Disease No Hx Seizures No Hx Multiple Sclerosis Yes: LLE WEAKNESS X 30 YRS Hx Migraines No Cardiac Medical History VTE Present on Admission No Hx of Deep Vein Thrombosis/VTE/PE Yes Hx Hypertension Yes Hx Chest Pain/Angina Yes Hx Heart Attack No Hx Cardiac Surgery/Stents/Etc. No Hx Heart Failure No Hx Pacemaker/AICD No Hx Irregular Heartbeat and/or Afib No Hx Anticoagulant Therapy Yes: elaquis mihainox Query Text:(Coumadin, Aspirin, Plavix, Xarelto, etc.) Hx Pain in Legs when Walking/Leg Cramps No Respiratory Medical History Hx COPD No Hx Emphysema No Hx Smoking No Smoking Status Former smoker Hx Smoking Cessation Counseling Yes Hx Smoking Exposure Yes Hx Tobacco Use in last 12 months No Hx of Pipe Smoking No Hx Sleep Apnea No CPAP No BIPAP No Do you snore loudly (louder than talking No or can be heard through closed doors)? Do you often feel tired/ fatigued/ No sleepy during daytime? Has anyone observed you stop breathing No during sleep? STOP Results Negative GI Medical History Hx Ulcer Yes Hx Hepatitis No Hx Cirrhosis No Hx GI Bleed No Hx Unplanned Weight Loss No Genitourinary Medical History Indwelling Catheter in Place on Arrival/ No Admission Hx Renal Disease No Hx Dialysis No Musculoskeletal History Hx Arthritis No Hx Rheumatoid Arthritis No Endocrine Medical History Hx Diabetes No Hx Thyroid Disease No Hematologic Medical History Hx of Blood Transfusion No Hx of Transfusion in last 3 Months No Ever experience any problems with No transfusion(s)? Hx of Preganancy in last 3 Months N/A Nurse Filling Out Transfusion AND ZBEAM Questions: Date: 07/03/18 Time: 13:02 Psycho/Social Medical History Hx Depression No Hx Anxiety No Hx Behavior Disorder No Hx Alcohol Use No Hx Substance Use No Other Medical History Hx Blood Disorders No Hx Anemia No Hx Cancer Yes: PROSTATE CANCER ( radiation), BX 08/2014, LUNG CA s/p chemo and lobectomy Hx Drug Resistant Organism No Wound/Pressure Injury Present on Arrival No /Admission Query Text:If yes, chart assessment in Shift/Clinical Findings Central Line/PICC/VAD Present on Arrival No /Admission Antibiotics within last 7 days? No Risk for Readmission Number of Risk Factors 3 At Risk for Readmission Patient is At Risk For Readmission Patient is eligible for Call Back Y Past Medical History (Last Updated 07/03/18 @ 12:52 by Doc Higuera MD) Adenocarcinoma of lung (Chronic) Hyperlipidemia (Chronic) Hypertension (Chronic) 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) BLOOD CLOT LUNGS (Acute) Deep vein blood clot of left lower extremity (Acute) Deep vein blood clot of right lower extremity (Acute) Past Surgical History (Last Updated 07/03/18 @ 12:52 by Doc Higuera MD) History of prostatectomy (Chronic) Maternal Family History: Family History (Last Reviewed 07/01/18 @ 12:53 by HAI Zamora) Father Prostate cancer Liver cancer Liver disease Mother Bone cancer Family History: No pertinent history Paternal Family History: Family History (Last Reviewed 07/01/18 @ 12:53 by HAI Zamora) Father Prostate cancer Liver cancer Liver disease Mother Bone cancer Family History: No pertinent history - Social History Lives: Spouse/ Significant Other Smoking Status: Former smoker Alcohol: None, Rare Drugs: None Allergies/Adverse Reactions: Allergy/AdvReac Type Severity Reaction Status Date / Time morphine AdvReac Intermediate MAKES HIS Verified 07/03/18 09:12 Review of Systems Constitutional:: Reports: Weakness, Fatigue. Denies: Fever, Sweats, Weight loss, Appetite change, Chills Cardiovascular:: Reports: Dyspnea on exertion. Denies: Chest pain, Palpitations, Orthopnea, PND, Shortness of breath Respiratory: Reports: Cough, Shortness of breath at rest. Denies: Hemoptysis, Wheezing Gastrointestinal:: Denies: Abdominal pain, Nausea, Vomiting, Diarrhea, Constipation, Hematochezia Genitourinary: Denies: Dysuria, Hematuria, 15, Flank pain Musculoskeletal:: Denies: Back pain, Myalgia, Arthralgia Skin: Denies: Rash, Skin Changes, Wounds Neurological:: Reports: Muscle weakness. Denies: Headache, Dizziness, Numbness, Tingling, Frequent falls, Visual changes, Tinnitus, Hearing loss Psychiatric: Denies: Anxiety, Depression, Homicidal Ideations, Suicidal Ideations Vital Signs Height 5 ft 10.08 in Weight: 185 lb 13.595 oz Weight in Pounds 185.8 lbs Pulse Ox 96 - Physical Exam General: Alert, Oriented x3, No apparent distress HEENT: Atraumatic, PERRLA, EOMI, Normocephalic, - - wears glasses Oropharynx:: Negative for: Dry mucosa, Ulcerated lesions Neck:: Supple, Trachea midline. Negative for: JVD, bilateral Cardiac:: Regular rate, Regular rhythm, Normal S1, Normal S2. Negative for: Murmur Lungs: Rhonchi, Wheezes, Diminished, Increased respiratory effort, Excusion symmetrical. Negative for: Tachypneic Abdomen:: Bowel sounds x 4, Soft, Non-tender, Non-distended. Negative for: Hepatosplenomegaly Extremities:: Negative for: Cyanosis, Edema Neurological: Neuro grossly intact Skin:: Negative for: Lesions, Rash, Petechiae, Ecchymosis Psychiatric:: Appropriate affect, Euthymic Lymphatics:: Negative for: Cervical lymphadenopathy, Supraclavicular lymphadenopathy, Axillary lymphadenopathy Laboratory Data: Laboratory Tests WBC 11.3 H (4.4-11.0) K/mm3 RBC 2.78 L (4.6-6.2) M/mm3 Hgb 8.4 L (13.0-16.5) g/dl WBC (4.4-11.0) K/mm3 RBC (4.6-6.2) M/mm3 Hgb (13.0-16.5) g/dl Diagnostic Data: Diagnostic Data Abdomen/Pelvis CT 07/03/18 09:21 IMPRESSION: Worsening consolidations and effusions at the left lung base and nodular changes at the right lung base. Partially visualized right hilar and subcarinal lymphadenopathy. Bilateral renal cysts. Electronically Signed: Fritz Lee, at 10:19 EST Tel , Service support , Chest X-Ray 07/03/18 09:21 IMPRESSION: Stable-appearing consolidation and effusion at the left lung base. Electronically Signed: Fritz Lee, at 10:34 EST Tel , Service support , Chest CTA 07/03/18 14:04 IMPRESSION: 1. Stable multiple moderate size left pleural effusion. A few gas bubbles now present in the fluid along the posterolateral left mid chest, raising concern of evolving empyema. There is stable partial collapse of the left lower lobe. 2. Worsened infrahilar right base peribronchial thickening and ill-defined stranding of inflammatory change or volume loss/crowding. Stable 7 mm nodule in the posterior peripheral right lower lobe. Occasional calcified granulomata also noted. 3. Grossly stable mediastinal, subcarinal, and right hilar lymphadenopathy, with confluent soft tissue density encasing the central right bronchovascular structures. 4. Incompletely occlusive thrombus in the right lower lobe pulmonary artery has progressed into the segmental right lower lobe branches. This likely reflects local disease secondary to stasis of flow rather than acute pulmonary embolus. Electronically Signed: Collin Michael MD at 17:19 EST , Service support , ADDENDUM: 07/03/18 4449 Assessment and Plan 1. Non-small cell lung cancer, adenocarcinoma histology, left lower lobe. Patient is status post left lower lobectomy and lymph node dissection at [facility] July 03, 2017 with R0 resection. Received adjuvant chemotherapy with carboplatin Alimta for 4 cycles October-December 2017 (as per patient request of delay) on surveillance reports increasing dyspnea and CT scan June 18, followed by a PET/CT June 28, 2018 findings are consistent with recurrent disease in the mediastinal lymph nodes and likely malignant pleural effusion. There is also evidence for bony metastatic disease in the pelvis (either from lung or high risk prostate, although less likely as patient has confirmed PSA secreting disease and PSA in 03/2018 undetectable). 2. Left pleural effusion- Underwent thoracentesis 07/02/18, cytology is pending. PDL1 testing on pleural fluid pending. 3. Anemia- as evidenced by Hgb 8.4. Presumably multifactorial, chronic disease and cancer. Will continue to monitor. 4. VTE- Hypercoagulability d/t active malignancy. Presently on heparin drip 5. A very high risk prostate cancer- status post radical prostatectomy followed by adjuvant radiation therapy in 2014 and has been on ADT since 2016 due to PSA relapse. PSA <0.01 03/2018. Case discussed with Dr. Leger. No outstanding recommendations from oncology, pending results of cytology analysis. Corina Holbrook, MSN, SEAM SEWER-C, AOCNP Primary Care Provider: Katlyn Mullins Referring Provider: 07/06/18 1008 <Electronically signed by Corina Holbrook SALES RESEARCH ANALYST-C> Date Corina Holbrook SALES RESEARCH ANALYST-C Cosigner Signature (if applicable): Date CC: Tavon Mullen MD; Kash Rollins MD; Katlyn Mullins DO; Corina Holbrook NP Signed CBC-COMPLETE BLOOD CNT Collected: 07/06/2018 Status: F Source: [place] NO DIFF 6:05 AM [facility] [place] REPOSITORY Order Comment: Comments: heparin gtt. protocol TYPE CODE TESTS RESULT OUT OF RANGE REFERENCE UNITS LAB L100.1000 4.4-11.0 K/mm3 High WBC 11.9 LAB L100.1200 4.6-6.2 M/mm3 Low RBC 2.75 LAB L100.1300 13.0-16.5 g/dl Low HGB 8.4 LAB L100.1400 40-54 % Low HCT 26.0 LAB L100.1500 80-94 fL High MCV 94.5 LAB L100.1600 27.0-32.0 pg Normal MCH 30.5 LAB L100.1700 32-36 g/gl Normal MCHC 32.3 LAB L100.1810 11.6-14.6 % High RDW CV 15.3 LAB L100.1820 35.1-43.9 fl High RDW SD 51.0 LAB L100.1900 150-450 K/mm3 Normal PLT 293 LAB L100.2000 6.2-12.0 fl Normal MPV 9.3 Performed By: #### L100.0500 #### [facility] [address] [place], [place], [id number] PARTIAL THROMBOPLAST Collected: 07/06/2018 Status: F Source: [place] TIME 6:05 AM [facility] [place] REPOSITORY TYPE CODE TESTS RESULT OUT OF REFERENCE UNITS RANGE LAB L300.4310 24.1-36.2 Seconds High PTT 67.2 Performed By: #### L300.4310 #### [facility] [address] [place], [address] CHEST 1 VIEW Observed: 07/06/2018 Status: F Source: [place] (PORTABLE) 12:00 AM [facility] [place] REPOSITORY [facility] Imaging [place] [address] Chest 1 View (Portable) MR#: [id number] Acct: [id number] Name: SHAILA STOLL Rep #: [id number] : 1950 M 67 From: Kaylene Molina MD PCP: Katlyn Mullins DO Status: ADM IN Study: Chest 1 View (Portable) Date of Exam: 07/06/18 Exam# [id number] Ordering Dr: Skye Haro STUDY: X-RAY CHEST REASON FOR EXAM: Male, 67 years old. Short of breath, dyspnea TECHNIQUE: Single AP portable view of the chest. COMPARISON: 07/03/2018, chest x-ray and CT chest. FINDINGS: Stable elevation left hemidiaphragm, left pleural effusion and airspace disease in the left perihilar parenchyma appears decreased, likely underlying atelectasis. There is continuous interstitial prominence particularly in the right base and perihilar parenchyma with peribronchial cuffing, stable scattered calcified nodules. No right pleural effusion. Obscured size of heart. Normal mediastinum and quinton. Normal visualized pulmonary arteries. There is atherosclerotic calcification of the aortic arch with tortuosity. There are diffuse degenerative changes of the visualized thoracic spine. Normal visualized ribs, clavicles, and shoulders. There is no demonstrated abnormality of the visualized soft tissue structures of the upper abdomen. RAD/Chest 1 View (Portable) IMPRESSION: Stable elevation of the left hemidiaphragm, left pleural effusion and atelectasis and interstitial lung disease involving the right hilar and basilar parenchyma. Minimal improved aeration in the left perihilar parenchyma. Electronically Signed: Kaylene Molina MD at 5:31 EST , Service support , CC: Skye Haro; Katlyn Mullins DO Flash Ranging Crewmember: Signed ECHOCARDIOGRAM COMPLETE Observed: 07/05/2018 Status: F Source: [place] 12:41 PM [facility] REPOSITORY [facility] Cardiovascular [place] [address] Echo Complete 07/05/18 1014 MR#: [id number] Acct: [id number] Name: SHAILA STOLL Rep #: [id number] : 1950 67 From: Kash Rollins MD Attending Dr: Skye Haro Status: ADM IN Ordering Dr: Doc Higuera MD Date: 07/03/18 Location: [facility] Sex: M C Admitted: 07/03/18 Reason For Study: S/P IL Procedure This was a 2D Doppler, Color Flow transthoracic echocardiogram. Myocardial strain analysis was performed in this exam to aid in the assessment of cardiac function. Strain analysis performed with suboptimal imaging. The study was technically difficult. Exam performed portable in patient room. Left Ventricle Normal LV size. Left ventricular systolic function is normal. The estimated ejection fraction is 70 %. No evidence for diastolic dysfunction. No regional wall motion abnormalities noted. Right Ventricle Normal RV size. Normal systolic function. Atria The left atrium is mildly enlarged. Normal right atrium. No doppler evidence for ASD. Mitral Valve There is no mitral annular calcification. Normal mitral valve. Trivial mitral valve insufficiency. Tricuspid Valve Normal tricuspid valve. Trivial tricuspid valve insufficiency. Unable to estimate RV systolic pressure/pulmonary artery pressure due to technically difficult study. Aortic Valve Trisinus/trileaflet aortic valve. Mild focal aortic valve thickening. Pulmonic Valve The pulmonic valve is not well visualized. Trivial pulmonic valve insufficiency. Great Vessels Normal sized aortic root. Pericardium/Pleural No pericardial effusion. MMode/2D Measurements AND Calculations LVIDd: 3.8 cm IVSd: 0.99 cm Ao root diam: 3.2 cm LVIDs: 2.2 cm LVPWd: 1.0 cm LA dimension: 3.8 cm RVDd: 3.2 cm FS: 41.6 % LAV(MOD-bp): 49.5 ml LVAd ap4: 19.7 cm2 SV(MOD-sp4): 22.5 ml LAV(MOD-bp) Indexed: 24.1 ml/m2 EDV(MOD-sp4): 42.8 ml LAV(MOD-sp2): 59.6 ml EDV(sp4-el): 43.8 ml LAV(MOD-sp4): 36.3 ml LVAs ap4: 11.6 cm2 ESV(MOD-sp4): 20.3 ml ESV(sp4-el): 20.0 ml EF(MOD-sp4): 52.6 % EF(sp4-el): 54.5 % SV(sp4-el): 23.9 ml LA A4 area: 14.6 cm2 RA A4 area: 12.5 cm2 Time Measurements MV dec time: 0.24 sec Doppler Measurements AND Calculations MV E max rabia: 80.2 cm/sec Lat Peak E' Rabia: 13.1 cm/sec Med Peak E' Rabia: 7.9 cm/sec MV A max rabia: 92.4 cm/sec E/E' lat: 6.1 E/E' med: 10.2 MV E/A: 0.87 Ao V2 max: 161.0 cm/sec LV V1 max: 145.5 cm/sec PA V2 max: 106.9 cm/sec Ao max P.4 mmHg LV V1 max P.5 mmHg Interpretation Summary The study was technically difficult. Left ventricular systolic function is normal. The estimated ejection fraction is 70 %. The left atrium is mildly enlarged. Trivial mitral valve insufficiency. Trivial tricuspid valve insufficiency. Mild focal aortic valve thickening. Trivial pulmonic valve insufficiency. Unable to estimate RV systolic pressure/pulmonary artery pressure due to technically difficult study. No evidence for diastolic dysfunction. Ordering Physician: Doc Higuera Referring Physician: SUSANNA POTTS Performed By: Tahira Warren RDCS 07/05/18 1240 Date Kash Rollins MD CC: Skye Haro; Doc Higuera; Katlyn Mullins DO Date Dictated: 07/05/18 1014 Date Transcribed: 07/05/18 1240 Flash Ranging Crewmember: Signed CONSULTATION Observed: 07/05/2018 Status: F Source: [place] 7:19 AM [facility] Medical Records Department [address] [place] [address] Consultation 07/04/18 0807 MR#: [id number] Acct: [id number] Name: SHAILA STOLL Rep #: [id number] : 1950 67 From: David Mock DO PCP: Katlyn Mullins DO Status: ADM IN Location: [place] [address] Reason for Consult Date of Consultation: 07/04/18 Reason for Consultation: Lung cancer, left lower lobe consolidation History of Present Illness: The patient is a 67-year-old male, with a history as outlined below, who presented to the emergency department on July 03 with complaints of fatigue and abdominal pain. The patient has a known history of pulmonary adenocarcinoma, for which she underwent a left lower lobe lobectomy in July 2017 at the [facility]. The patient received adjuvant chemotherapy and had a follow-up CT scan in mid June followed by a PET/CT at the end of June, all of which revealed findings concerning for recurrent disease in the mediastinal lymph nodes, along with a pleural effusion. The patient was last seen by his oncology provider on July 01. The patient also has a known history of venous thromboembolic disease. He underwent an ultrasound-guided thoracentesis on July 02, during which time, 1.8 L of blood-tinged fluid was removed. Pleural fluid cytology is reportedly pending. On presentation to the emergency department, the patient was noted to be afebrile and hemodynamically stable. He was initially saturating 93% on room air. Laboratory evaluation revealed no evidence of a leukocytosis. Chemistry profile was largely unrevealing. Serum lactate was normal at 1.1. Troponin was elevated to 1.8. The patient was subsequently evaluated by cardiology due to the presence of a non-ST segment elevation IL. Past Medical History Past Medical History (Chronic Problems): Chronic Problems (Last Updated 07/03/18 @ 12:52 by Doc Higuera MD) COPD (chronic obstructive pulmonary disease) (Chronic) Prostate cancer (Chronic) surgery , R.T. 2014 PSA relapse 2016 ADT Multiple sclerosis (Chronic) left leg weakness Cancer of lower lobe of left lung (Chronic) Regional lymph node metastasis present (Chronic) Anemia (Chronic) Adenocarcinoma of lung (Chronic) Hyperlipidemia (Chronic) Hypertension (Chronic) History of prostatectomy (Chronic) 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) [facility] 07/03/17 Medical History: Medical History (Last Updated 07/03/18 @ 12:52 by Doc Higuera MD) Adenocarcinoma of lung (Chronic) C34.90 Hyperlipidemia (Chronic) E78.5 Hypertension (Chronic) I10 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) [facility] 07/03/17 BLOOD CLOT LUNGS Deep vein blood clot of left lower extremity I82.402 Deep vein blood clot of right lower extremity I82.401 Allergies morphine Adverse Reaction (Intermediate, Verified 07/03/18 09:12) MAKES HIS NAUSEATED AND SICK Home Medications: Ambulatory Orders Medication Instructions Recorded Leuprolide Acetate [Lupron Depot 3.75 mg IM Q90D #0 10/02/17 Surgical History: Surgical History (Last Updated 07/03/18 @ 12:52 by Doc Higuera MD) History of prostatectomy (Chronic) Z98.890, Z90.79 Surgical History: - - Left lower lobe resection. Prostatectomy. Psychiatric History: No pertinent psych hx Lives: Spouse/ Significant Other Smoking Status: Former smoker Alcohol: None, Rare Drugs: None - *Family History Maternal Family History: Family History (Last Reviewed 07/01/18 @ 12:53 by HAI Zamora) Father Prostate cancer Liver cancer Liver disease Mother Bone cancer History Items: No pertinent history Paternal Family History: Family History (Last Reviewed 07/01/18 @ 12:53 by HAI Zamora) Father Prostate cancer Liver cancer Liver disease Mother Bone cancer History Items: No pertinent history Review of Systems Constitutional: Reports: Malaise, Weakness, Fatigue Eyes: Denies: Blurred vision, Double vision HEENT: Denies: Head Aches, Sinus Congestion, Sinus Drainage Cardiovascular: Denies: Chest Pain, Palpitations Respiratory: Reports: Shortness of Breath. Denies: Cough Gastrointestinal: Reports: Abdominal Pain Genitourinary: Denies: Dysuria Musculoskeletal: Denies: Joint Pain, Joint Tenderness Skin: Denies: Rash, Wounds Neurological: Denies: Numbness, Tingling, Focal weakness Psychiatric: Denies: Anxiety, Depression, Homicidal Ideations, Suicidal Ideations Hematologic/ Lymphatic: Denies: Easy Bruising, Easy Bleeding Patient Problems: Active and Suspected Problems (Last Updated 07/03/18 @ 12:52 by oDc Higuera MD) NSTEMI (non-ST elevated myocardial infarction) (Acute) Chest pain (Acute) Objective: The patient's most recent lab work, culture data and imaging studies have all been personally reviewed. - Physical Exam General: Alert, Cooperative, No apparent distress HEENT: Atraumatic, PERRLA, Normocephalic Oral: No Gingival or Mucosal Lesions/ Ulcerations Neck: Supple, No Nodes, Trachea Midline Lungs: No rhonchi, No wheeze, No rales, Diminished Cardiovascular: Regular rate, Regular Rhythm, Normal S1, Normal S2, No murmurs Abdomen: Bowel Sounds Present, Soft, Non Tender Extremities: No clubbing, No cyanosis, No edema Skin: No breakdown Musculoskeletal: No Tenderness to Palpation of Joints or Extremities Lymphatic: No Cervical, Supraclavicular, or Inguinal Adenopathy Neurological: Cranial nerves II-XII grossly intact, Neuro grossly intact Psych/Mental Status: Alert and oriented to time, place, person, mood and affect Vital Signs Temp Pulse Resp BP Pulse Ox 37.0 C 85 18 103/64 96 07/04/18 03:10 07/04/18 07:03 07/04/18 03:10 07/04/18 03:10 07/04/18 03:10 Oxygen Flow Rate (L/min) 2 Oxygen Delivery Method Room Air Weight: 185 lb 13.595 oz Body Mass Index (BMI) 26.6 Intake and Output for Last 24 Hours Intake Total 484 / 484 646 / 646 Balance 484 / 484 646 / 646 Laboratory Tests Past 24 Hrs WBC 9.9 RBC 3.18 L Hgb 9.7 L Hct 30.1 L MCV 94.7 H MCH 30.5 MCHC 32.2 RDW 15.2 H WBC RBC Hgb Hct MCV MCH MCHC RDW RDW Differential Plt Count MPV Immature Gran % (Auto) WBC 10.2 RBC 2.89 L Hgb 8.5 L Hct 26.7 L MCV 92.4 MCH 29.4 MCHC 31.8 L RDW 15.6 H RDW Differential 52.3 H Clinical Impression(s) from Imaging Studies Abdomen/Pelvis CT 07/03/18 09:21 IMPRESSION: Worsening consolidations and effusions at the left lung base and nodular changes at the right lung base. Partially visualized right hilar and subcarinal lymphadenopathy. Bilateral renal cysts. Electronically Signed: Fritz Lee, at 10:19 EST Tel , Service support , Chest X-Ray 07/03/18 09:21 IMPRESSION: Stable-appearing consolidation and effusion at the left lung base. Electronically Signed: Fritz Lee, at 10:34 EST Tel , Service support , Chest CTA 07/03/18 14:04 IMPRESSION: 1. Stable multiple moderate size left pleural effusion. A few gas bubbles now present in the fluid along the posterolateral left mid chest, raising concern of evolving empyema. There is stable partial collapse of the left lower lobe. 2. Worsened infrahilar right base peribronchial thickening and ill-defined stranding of inflammatory change or volume loss/crowding. Stable 7 mm nodule in the posterior peripheral right lower lobe. Occasional calcified granulomata also noted. 3. Grossly stable mediastinal, subcarinal, and right hilar lymphadenopathy, with confluent soft tissue density encasing the central right bronchovascular structures. 4. Incompletely occlusive thrombus in the right lower lobe pulmonary artery has progressed into the segmental right lower lobe branches. This likely reflects local disease secondary to stasis of flow rather than acute pulmonary embolus. Electronically Signed: Collin Michael MD at 17:19 EST , Service support , ADDENDUM: 07/03/18 1729 Assessment/Plan All Active Problems (Last Updated 07/03/18 @ 12:52 by Doc Higuera MD) NSTEMI (non-ST elevated myocardial infarction) (Acute) Chest pain (Acute) Bone metastases (Acute) Pleural effusion, malignant (Acute) RECOMMENDATIONS: 1. Await cytology results from the patient's recent thoracentesis. 2. Continue bronchodilators. 3. Continue heparin drip for now. 4. Medical management of NSTEMI per cardiology recommendations. IMPRESSIONS: 1. History of non-small cell lung cancer with concern for recurrence/concern for malignant pleural effusion The patient is currently active with oncology and recently underwent a thoracentesis. We are waiting cytology results to confirm a suspected diagnosis of malignant pleural effusion. If the patient's effusion is found to be positive for malignant cells, this would make him automatically a stage IV cancer patient. I am less concerned about the possibility of empyema, as I feel that the gas bubbles noted in the pleural effusion are likely the consequence of his recent thoracentesis. Consideration for any additional cancer treatment will need to be undertaken by oncology. Consultation to oncology is currently pending. 2. Venous thromboembolic disease The patient is currently on a heparin drip, having been transitioned from his outpatient Lovenox. However, the patient's Lovenox had been transiently discontinued to allow for the patient's recent thoracentesis. 3. History of COPD The patient currently follows with Dr. Mullen on an outpatient basis. Continue scheduled bronchodilators. 4. Non-ST segment elevation IL The patient is currently being followed by cardiology. Would strongly recommend holding off on any potential cardiac catheterization until the patient's pleural fluid cytology has returned. If the patient does have a malignant pleural effusion that continues to accumulate, he may be a candidate for Pleurx catheter placement, which would be hindered by have any stent placed and started on antiplatelet therapy. 5. Hypertension/hyperlipidemia/personal history of prostate CA Complicates care, management, recovery and prognosis. Likely okay to continue home medications as indicated. This note was generated with Future Domaination software. It may contain incorrect words, spelling, and punctuation that were not noted in checking the note before signing. Code Visit Inpatient E AND M: 82031 Init Hosp L3 07/05/18 0719 <Electronically signed by David Mock DO> Date David Mock DO Cosigner Signature (if applicable): Date CC: Tavon Mullen MD; Kash Rollins MD; Katlyn Mullins DO; Corina Holbrook NP Signed CBC W/DIFF, AUTOMATED Collected: 07/05/2018 Status: F Source: [place] 6:10 AM [facility] REPOSITORY TYPE CODE TESTS RESULT OUT OF RANGE REFERENCE UNITS LAB L100.1000 4.4-11.0 K/mm3 High WBC 11.3 LAB L100.1200 4.6-6.2 M/mm3 Low RBC 2.78 LAB L100.1300 13.0-16.5 g/dl Low HGB 8.4 LAB L100.1400 40-54 % Low HCT 26.2 LAB L100.1500 80-94 fL High MCV 94.2 LAB L100.1600 27.0-32.0 pg Normal MCH 30.2 LAB L100.1700 32-36 g/gl Normal MCHC 32.1 LAB L100.1810 11.6-14.6 % High RDW CV 15.1 LAB L100.1820 35.1-43.9 fl High RDW SD 49.5 LAB L100.1900 150-450 K/mm3 Normal PLT 249 LAB L100.2000 6.2-12.0 fl Normal MPV 9.2 LAB L100.2100 47-70 % High NEUT% 76.0 LAB L100.2200 19-41 % Low LY% 8.0 LAB L100.2300 0-10 % High MONO% 13.2 LAB L100.2400 0-5 % Normal EO% 2.0 LAB L100.2500 0-1 % Normal BASO% 0.3 LAB L100.2550 0.0-0.9 % Normal IM GRAN % 0.500 Result Comment: IG% - Immature Granulocytes (promyelocytes, myelocytes and metamyelocytes) > 1% indicates that a LEFT SHIFT is Present. LAB L100.2620 2.0-7.7 X10 3/uL High Absolute Neut 8.6 LAB L100.2720 0.83-4.51 X10 3/ul Normal Absolute Lymph 0.90 Performed By: #### L100.0100 #### [facility] [address] [place], [address] BASIC METABOLIC Collected: 07/05/2018 Status: F Source: [place] PROFILE ([facility]) 6:10 AM [facility] REPOSITORY TYPE CODE TESTS RESULT OUT OF RANGE REFERENCE UNITS LAB L501.0100 74-106 mg/dL Normal GLU 97 Result Comment: Please note revised GLUCOSE reference range effective 2017. LAB L501.1000 7-18 mg/dL Normal BUN 14 LAB L501.1100 0.70-1.30 mg/dL Normal CREAT,SERUM 0.96 Result Comment: The validity of the calculated GFR AND GFRAA in patients over 70 years has not been determined. Clinical correlation is essential. LAB L501.1110 >60 mL/min Normal EST GFR 84 Result Comment: Non- GFR Calc LAB L501.1115 >60 mL/min Normal EST GFR - AA 101 Result Comment: GFR Calc LAB L501.1255 ml/min Normal Estimated CRCL 79.21 LAB L501.1300 10-20 RATIO Normal BUN/CRE 14.6 LAB L501.2200 8.5-10 mg/dL Low .1 CA 8.2 LAB L501.5300 136-14 mmol/L Low 5 NA 135 LAB L501.5600 3.5-5. mmol/L Normal 1 K 3.8 LAB L501.5900 98-107 mmol/L Normal CL 100 LAB L501.6100 21.0-3 mmol/L Normal 2.0 CO2 25.0 LAB L501.6200 5-15 Normal GAP 10 Performed By: #### L500.2500 #### [facility] [address] [place], [address] PARTIAL THROMBOPLAST Collected: 07/05/2018 Status: F Source: [place] TIME 6:10 AM [facility] REPOSITORY TYPE CODE TESTS RESULT OUT OF REFERENCE UNITS RANGE LAB L300.4310 24.1-36.2 Seconds High PTT 63.0 Performed By: #### L300.4310 #### [facility] [address] [place], [address] MAGNESIUM Collected: 07/05/2018 Status: F Source: [place] 6:10 AM [facility] REPOSITORY TYPE CODE TESTS RESULT OUT OF RANGE REFERENCE UNITS LAB L501.5200 1.6-2.6 mg/dL Normal MG 2.0 Performed By: #### L501.5200 #### [facility] [address] [place], [address] PARTIAL THROMBOPLAST Collected: 07/04/2018 Status: F Source: [place] TIME 8:35 PM [facility] REPOSITORY TYPE CODE TESTS RESULT OUT OF REFERENCE UNITS RANGE LAB L300.4310 24.1-36.2 Seconds High PTT 59.1 Performed By: #### L300.4310 #### [facility] [address] [place], [address] PARTIAL THROMBOPLAST Collected: 07/04/2018 Status: F Source: [place] TIME 2:41 PM [facility] REPOSITORY TYPE CODE TESTS RESULT OUT OF REFERENCE UNITS RANGE LAB L300.4310 24.1-36.2 Seconds High PTT 63.7 Performed By: #### L300.4310 #### [facility] [address] [place], [address] PARTIAL THROMBOPLAST Collected: 07/04/2018 Status: F Source: [place] TIME 8:46 AM [facility] REPOSITORY TYPE CODE TESTS RESULT OUT OF REFERENCE UNITS RANGE LAB L300.4310 24.1-36.2 Seconds High PTT 75.0 Performed By: #### L300.4310 #### [facility] [address] [place], [address] CBC W/DIFF, AUTOMATED Collected: 07/04/2018 Status: F Source: 2:15 AM [facility] REPOSITORY TYPE CODE TESTS RESULT OUT OF RANGE REFERENCE UNITS LAB L100.1000 4.4-11.0 K/mm3 Normal WBC 10.2 LAB L100.1200 4.6-6.2 M/mm3 Low RBC 2.89 LAB L100.1300 13.0-16.5 g/dl Low HGB 8.5 LAB L100.1400 40-54 % Low HCT 26.7 LAB L100.1500 80-94 fL Normal MCV 92.4 LAB L100.1600 27.0-32.0 pg Normal MCH 29.4 LAB L100.1700 32-36 g/gl Low MCHC 31.8 LAB L100.1810 11.6-14.6 % High RDW CV 15.6 LAB L100.1820 35.1-43.9 fl High RDW SD 52.3 LAB L100.1900 150-450 K/mm3 Normal PLT 194 LAB L100.2000 6.2-12.0 fl Normal MPV 8.6 LAB L100.2100 47-70 % High NEUT% 80.6 LAB L100.2200 19-41 % Low LY% 6.2 LAB L100.2300 0-10 % High MONO% 11.1 LAB L100.2400 0-5 % Normal EO% 1.6 LAB L100.2500 0-1 % Normal BASO% 0.2 LAB L100.2550 0.0-0.9 % Normal IM GRAN % 0.300 Result Comment: IG% - Immature Granulocytes (promyelocytes, myelocytes and metamyelocytes) > 1% indicates that a LEFT SHIFT is Present. LAB L100.2620 2.0-7.7 X10 3/uL High Absolute Neut 8.2 LAB L100.2720 0.83-4.51 X10 3/ul Low Absolute Lymph 0.63 Performed By: #### L100.0100 #### [facility] [address] [place], [address] BASIC METABOLIC Collected: 07/04/2018 Status: F Source: [place] PROFILE ([facility]) 2:15 AM [facility] REPOSITORY TYPE CODE TESTS RESULT OUT OF RANGE REFERENCE UNITS LAB L501.0100 74-106 mg/dL High GLU 124 Result Comment: Fasting Glucose result from 100 to 125 mg/dL suggests IMPAIRED HOMEOSTASIS per A.D.A. criteria. Please note revised GLUCOSE reference range effective 2017. LAB L501.1000 7-18 mg/dL Normal BUN 13 LAB L501.1100 0.70-1.30 mg/dL Normal CREAT,SERUM 0.90 Result Comment: The validity of the calculated GFR AND GFRAA in patients over 70 years has not been determined. Clinical correlation is essential. LAB L501.1110 >60 mL/min Normal EST GFR 90 Result Comment: Non- GFR Calc LAB L501.1115 >60 mL/min Normal EST GFR - AA 109 Result Comment: GFR Calc LAB L501.1255 ml/min Normal Estimated CRCL 84.49 LAB L501.1300 10-20 RATIO Normal BUN/CRE 14.5 LAB L501.2200 8.5-10 mg/dL Low .1 CA 7.9 LAB L501.5300 136-14 mmol/L Normal 5 NA 136 LAB L501.5600 3.5-5. mmol/L Normal 1 K 3.9 LAB L501.5900 98-107 mmol/L Normal CL 103 LAB L501.6100 21.0-3 mmol/L Normal 2.0 CO2 24.0 LAB L501.6200 5-15 Normal GAP 9 Performed By: #### L500.2500, L500.3400, L500.4100 #### [facility] [address] [place], [place], [id number] LIVER PROFILE Collected: 07/04/2018 Status: F Source: [place] 2:15 AM [facility] REPOSITORY TYPE CODE TESTS RESULT OUT OF RANGE REFERENCE UNITS LAB L501.1500 6.4-8.2 g/dL Normal T PROT 7.2 LAB L501.1800 3.2-5.0 g/dL Low ALB 2.4 LAB L501.1950 2.2-4.2 g/dL High GLOB 4.8 LAB L501.4100 15-37 U/L High AST 43 LAB L501.4305 45-117 U/L High ALK P 126 LAB L501.4405 16-61 U/L Normal ALT 28 LAB L501.4600 0.20-1.00 mg/dL Normal T BILI 0.40 LAB L501.4700 0.00-0.30 mg/dL Normal D BILI 0.11 Performed By: #### L500.2500, L500.3400, L500.4100 #### [facility] [address] [place], [place], [address] LIPID PROFILE Collected: 07/04/2018 Status: F Source: [place] 2:15 AM [facility] REPOSITORY TYPE CODE TESTS RESULT OUT OF RANGE REFERENCE UNITS LAB L501.4900 200 mg/dL Normal CHOL 165 Result Comment: <200 mg/dL Desirable 200-240 mg/dL Borderline >240 mg/dL High Risk LAB L501.5000 mg/dL Normal TRIG 108 Result Comment: The drugs N-Acetylcysteine and Metamizole may falsely depress this assay. Serum Triglycerides Reference Interval Normal <150 mg/dL Borderline high 150 - 199 mg/dL High 200 - 499 mg/dL Very High > or = 500 mg/dL LAB L501.6400 mg/dL Low HDL 35 Result Comment: The drugs N-Acetylcysteine and Metamizole may falsely depress this assay. Reference Range HDL <40 mg/dL Low HDL Cholesterol HDL >or= 60 mg/dL High HDL Cholesterol LAB L501.6500 0-130 mg/dL Normal LDL 108 LAB L501.6600 5-40 mg/dL Normal VLDL 22 Performed By: #### L500.2500, L500.3400, L500.4100 #### [facility] [address] [place], [address] PARTIAL THROMBOPLAST Collected: 07/04/2018 Status: F Source: [place] TIME 2:15 AM [facility] REPOSITORY TYPE CODE TESTS RESULT OUT OF REFERENCE UNITS RANGE LAB L300.4310 24.1-36.2 Seconds High PTT 84.4 Performed By: #### L300.4310 #### [facility] [address] [place], [address] PROTHROMBIN TIME W/INR Collected: 07/03/2018 Status: F Source: [place] 6:57 PM [facility] REPOSITORY TYPE CODE TESTS RESULT OUT OF RANGE REFERENCE UNITS LAB L300.4150 11.7-14.9 SECONDS High PROTIME 16.3 LAB L300.4200 Normal INR 1.3 Performed By: #### L300.3900, L300.4310 #### [facility] [address] [place], [address] PARTIAL THROMBOPLAST Collected: 07/03/2018 Status: F Source: [place] TIME 6:57 PM [facility] REPOSITORY TYPE CODE TESTS RESULT OUT OF REFERENCE UNITS RANGE LAB L300.4310 24.1-36.2 Seconds High PTT 45.6 Performed By: #### L300.3900, L300.4310 #### [facility] [address] [place], [address] TROPONIN-I Collected: 07/03/2018 Status: F Source: [place] 3:12 PM [facility] REPOSITORY Order Comment: 'TROP' Serial specimen #1, #2 or #3: 3 TYPE CODE TESTS RESULT OUT OF RANGE REFERENCE UNITS LAB L501.4010 <0.045 ng/mL High alert 1.770 TROPONIN-I Result Comment: Critical Result(s) Called at: 16:25:35 07/03/2018 by: Kinsey Flores TROPONIN-I EXPECTED VALUES <0.045 Negative 0.045 - 0.590 Consistent with Cardiac Damage > OR = 0.600 Critical Value Not every elevated troponin is indicative of IL. These values should be used with clinical judgement in examining the patient's clinical picture for diagnosis. To establish a diagnosis of IL versus myocardial injury, there must be a demonstrated rise and/or fall in the troponin values, in addition to ischemic symptoms, EKG changes, new regional wall motion abnormality, and/or angiographical evidence. PLEASE NOTE: REFERENCE RANGES EDITED 17 Performed By: #### L501.4010 #### [facility] [address] [place], [address] CONSULTATION Observed: 07/03/2018 Status: F Source: [place] 2:21 PM [facility] REPOSITORY [facility] Medical Records Department [address] [place] [address] Consultation 07/03/18 1405 MR#: [id number] Acct: [id number] Name: SHAILA STOLL Rep #: [id number] : 1950 67 From: Kash Rollins MD PCP: Katlyn Mullins DO Status: ADM IN Location: [place] [address] Problem List (1) NSTEMI (non-ST elevated myocardial infarction) Status: Acute (2) Chest pain Status: Acute (3) Hyperlipidemia Status: Chronic (4) Hypertension Status: Chronic (5) COPD (chronic obstructive pulmonary disease) Status: Chronic (6) Adenocarcinoma of lung Status: Chronic Qualifiers: (7) Prostate cancer Status: Chronic Comment: surgery , R.T. 2014 PSA relapse 2016 ADT (8) Bone metastases Status: Acute (9) Pleural effusion, malignant Status: Acute (10) Pulmonary embolism Status: Suspected Qualifiers: Reason for Consult Date of Consultation: 07/03/18 History of Present Illness: The patient is a 67 year old white male with a past medical history of hyperlipidemia, hypertension, COPD, prostate carcinoma, lung carcinoma status post resection, malignant pleural effusion, pulmonary embolism, who is now referred for concerns of abnormal cardiac enzymes compatible with an acute non-ST segment elevation IL with a history of chest pressure superimposed upon abdominal discomfort and fatigue. The patient has been following with outpatient hematology oncology. Yesterday he did not take his long-term anticoagulant, Lovenox, as he underwent a thoracentesis procedure. His thoracentesis procedure was performed on the left side at which time he had removed approximately 1780 cc of a blood-tinged fluid. He states he did not sleep well yesterday evening. Today he was noting abdominal discomfort. Based upon that and his chronic fatigue he elected to present to the hospital for further evaluation. However at the same time he notes that for some nights now he has had chest pressure. It does not radiate. He has chronic shortness of breath/dyspnea. He does not complain of any acute nausea or emesis. There has been no acute near syncope or syncope. He has not had ongoing lower extremity peripheral pitting edema that he is aware of. However he states when he does receive IV fluids from his liability claims examiner oncologist that he can have transient lower extremity edema. During his evaluation he was found to have an abnormal troponin I level. It was repeated and remained abnormal. His ECG demonstrated sinus rhythm with low voltage QRS in the limb leads but no acute ECG changes. A chest x-ray was performed which suggested a residual left-sided pleural effusion. He also recently had a transthoracic echocardiogram performed on 08/18/2017. At that time the left ventricle was thought to be normal with an LVEF of 60%, mild MR, mild TR, mild focal aortic valve calcification, and an estimated PA systolic pressure 45 mmHg. There was also evidence of decreased diastolic compliance. He states he was to have an exercise tolerance test performed earlier this year. However based on recurrent pulmonary emboli this did not occur. He does note that his liability claims examiner oncologist told him that he may have approximately 6 months to live. [] Past Medical History Allergies/Adverse Reactions: Allergies morphine Adverse Reaction (Intermediate, Verified 07/03/18 09:12) MAKES HIS NAUSEATED AND SICK Home Medications: Ambulatory Orders Medication Instructions Recorded Leuprolide Acetate [Lupron Depot 3.75 mg IM Q90D #0 10/02/17 Past Medical History (Chronic Problems): Chronic Problems (Last Updated 07/03/18 @ 12:52 by Doc Higuera MD) COPD (chronic obstructive pulmonary disease) (Chronic) Prostate cancer (Chronic) surgery , R.T. 2014 PSA relapse 2016 ADT Multiple sclerosis (Chronic) left leg weakness Cancer of lower lobe of left lung (Chronic) Regional lymph node metastasis present (Chronic) Anemia (Chronic) Adenocarcinoma of lung (Chronic) Hyperlipidemia (Chronic) Hypertension (Chronic) History of prostatectomy (Chronic) 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) [facility] 07/03/17 Surgical History: - - Left lower lobe resection. Prostatectomy. Psychiatric History: No pertinent psych hx - *Family History Maternal Family History: Family History (Last Reviewed 07/01/18 @ 12:53 by HAI Zamora) Father Prostate cancer Liver cancer Liver disease Mother Bone cancer History Items: No pertinent history Paternal Family History: Family History (Last Reviewed 07/01/18 @ 12:53 by HAI Zamora) Father Prostate cancer Liver cancer Liver disease Mother Bone cancer History Items: No pertinent history Lives: Spouse/ Significant Other Smoking Status: Former smoker Alcohol: None, Rare Drugs: None Review of Systems - Review of Systems General: Reports: Fatigue. Denies: Fever, Night Sweats Cardiovascular: Reports: Chest Discomfort, Chest Discomfort at Rest, Shortness of Breath, Shortness of Breath at Rest, Shortness of Breath with Exertion. Denies: Orthopnea, PND, Peripheral Edema, Palpitations, Lightheadedness, Dizziness, Near Syncope, Syncope Respiratory: Reports: Shortness of Breath. Denies: Cough, Sputum Production, Hemoptysis Gastrointestinal: Reports: Abdominal Discomfort. Denies: Hematemesis, Hematochezia, Melena Genitourinary: Denies: Dysuria, Hematuria Skin: Denies: Rash Subjectve: This is a 67-year-old white male who appears to be resting reasonably comfortably at the moment in no acute distress. Objective: Vital Signs Temp Pulse Resp BP Pulse Ox 98.3 F 80 16 141/78 H 98 07/03/18 11:43 07/03/18 11:46 07/03/18 11:43 07/03/18 11:43 07/03/18 11:43 Oxygen Flow Rate (L/min) 2 Oxygen Delivery Method Nasal Cannula Weight: 185 lb 13.595 oz Body Mass Index (BMI) 26.6 General: Awake, Alert, Oriented x 3, Cooperative, No Acute Distress, - - Chronically ill-appearing HEENT: Atraumatic, Normocephalic, PERRL, EOMI, Sclera Non Icteric Oral: Moist Mucosa Neck: Supple, Good ROM, No JVD Lungs: Diminished Left Base Cardiovascular: Regular Rhythm, Normal S1, Normal S2 Vascular: No Carotid Bruits Abdomen: Bowel Sounds Present, Soft Extremities: No edema Neurological: No Focal Motor or Sensory Deficit Psych/Mental Status: Appropriate 07/03/18 09:15: WBC 9.9, RBC 3.18 L, Hgb 9.7 L, Hct 30.1 L, MCV 94.7 H, MCH 30.5, MCHC 32.2, RDW 15.2 H, RDW Differential 50.5 H, Plt Count 207, MPV 8.6, Immature Gran % (Auto) 0.700, Neut % (Auto) 80.6 H, Lymph % (Auto) 9.6 L, [place] % (Auto) 8.4, Eos % (Auto) 0.5, Baso % (Auto) 0.2, Absolute Neuts (auto) 8.0 H, Total Counted Not Reportable 07/03/18 09:15: Sodium 137, Potassium 4.1, Chloride 103, Carbon Dioxide 26.0, Anion Gap 8, BUN 16, Creatinine 1.08, Est GFR (MDRD) Af Amer 88, Est GFR (MDRD) Non-Af 73, BUN/Creatinine Ratio 14.8, Glucose 114 H, Calcium 8.3 L, Total Bilirubin 0.50, Troponin I 1.810 H* 07/03/18 09:32: Lactic Acid 1.1 07/03/18 12:25: Troponin I 1.920 H* Rhythm: Sinus rhythm EKG: Sinus rhythm; low voltage QRS limb leads ECHO: As noted above CXR: As noted above Assessment/Plan 1. Non-ST segment elevation IL The etiology for his abnormal cardiac enzymes raise concern of underlying cardiovascular disease with a primary acute coronary syndrome. However at the same time other etiologies have to be considered. The patient has a history of pulmonary embolism on more than one occasion. It may be less likely he had a recurrent event with the lack of 1 dose of anticoagulant therapy, however, is still possible based on his past history. Thus it may not be unreasonable to further evaluate him for possible recurrent pulmonary embolism. There is been no obvious etiology for an acute CVA. He does not appear to be in acute renal insufficiency. He does not appear to be septic at this time. From a cardiac standpoint he will be treated medically which will include agents such as aspirin, antiplatelets, nitrates, beta-blockers, etc. as deemed appropriate. He has resumed anticoagulant therapy. It would not be unreasonable to consider further evaluation from a cardiac standpoint which would include a diagnostic cardiac catheterization. This would be to evaluate for CAD that would be amenable to percutaneous intervention that may assist with the patient's quality of life. He would not be a candidate for CT surgery based upon his diagnosis and his limited life expectancy per his liability claims examiner/oncologist. Was discussed with the patient. The present time he will consider undergoing diagnostic cardiac catheterization and possible PCI for quality of life issues. In the interim it may not be unreasonable to reassess him for a possibility of a recurrent PE based on his past history. This can be accomplished with a chest CT scan with IV contrast. 2. Chest pain He does complain of chest pressure. He states this is been going on for a few nights. It does not radiate. He does have chronic shortness of breath/dyspnea. He is also been fatigued. It is unclear whether this symptom is cardiac or related to his other noncardiac issues such as his previous thromboembolic disease and her ongoing pleural- based disease process, etc. Thus he will continue evaluation care as noted above. 3. Hyperlipidemia He can continue evaluation care as deemed appropriate at this time. 4. Hypertension His blood pressure will be followed. He will continue medical adjustment as needed. 5. COPD He does have a history of underlying COPD. He is following with Dr. Mullen pulmonology. 6. 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 He recently underwent thoracentesis. He has a blood-tinged pleural effusion which raises concerns of a malignant pleural effusion. It may be related to his lung carcinoma. However, at the same time he also has a history of prostate carcinoma and thus contribution from this cannot be excluded. 7. Prostate carcinoma His hematology oncology notes it appears he also has a history of prostate carcinoma. Thus is unclear whether this may be contributing to his metastatic findings as well. 8. Pulmonary embolism He has had pulmonary embolism on more than one occasion. This does raise a concern as to whether or not he could have had a recurrent recurrent acute PE that may explain his change in clinical course as well as his laboratory studies. Thus a chest CT can with IV contrast would not be unreasonable. Of note, the patient states that for the time being he is decided that he will receive no additional chemotherapy, etc., for his underlying carcinoma diagnosis and/or static disease. He states he was told that he may only have approximately 6 months to live. He notes at the present time he is more concerned about his quality of life and his quantity of life. Comment: The above was discussed with the patient and his significant other present. The patient's case has also been previously discussed with Dr. Higuera. This note was generated with [employer] software. It may contain incorrect words, spelling, and punctuation that were not noted in checking the note before signing. 07/03/18 1421 <Electronically signed by Kash Rollins MD> Date Kash Rollins MD Cosigner Signature (if applicable): Date CC: Dago Leger MD; Kash Rollins MD; Katlyn Mullins DO Signed CTA CHEST W/WO Observed: 07/03/2018 Status: F Source: [place] 2:05 PM [facility] REPOSITORY [facility] Imaging Services [address] [place] [address] CTA Chest W/WO Contrast MR#: [id number] Acct: [id number] Name: SHAILA STOLL Rep #: [id number] : 1950 M 67 From: Cruzito Michael MD PCP: Katlyn Mullins DO Status: ADM IN Study: CTA Chest W/WO Contrast Date of Exam: 07/03/18 Exam# [id number] Ordering Dr: Kash Rollins MD ADDENDUM by Collin Michael on 07/03/18 at 1722 ADDENDUM Gas bubbles in the left pleural collection may also be related to the recent thoracentesis procedure. Electronically Signed: Collin Michael MD at 17:22 EST , Service support , 07/03/181721 Date cc: Kash Rollins MD; Katlyn Mullins DO * Signed ADDENDUM by Collin Michael on 07/03/[address]/CTA Chest W/WO Contrast 07/03/181728 Date cc: Kash Rollins MD; Katlyn Mullins DO * Signed STUDY: CTA CHEST/THORAX REASON FOR EXAM: Male, 67 years old. Chest and mid abdominal pain, started after thoracentesis yesterday. History of prostate and lung cancer, left lower lobe resection. Last chemotherapy was 6 months ago. RADIATION DOSAGE (If Supplied By Facility): CTDIvol = ( 15.54 ) mGy, DLP = ( 609.03 ) mGycm TECHNIQUE: The examination was performed with the intravenous administration of 100 ml of Isovue 370 contrast material. Post-processing of the angiographic images was performed, with multiplanar reformation and 3D reconstruction. Individualized dose optimization techniques were used for this CT. COMPARISON: Portable AP upright chest x-ray 0949 hours; PET/CT June 28, 2018; CT chest/thorax with IV contrast June 18, 2018.. FINDINGS: Normal enhancement of the main pulmonary artery and right and left pulmonary arteries. Generally normal enhancement of the bilateral peripheral pulmonary arteries. The right lower lobe and possibly central middle lobe pulmonary arteries are encased by soft tissue density that is likely a combination of confluent adenopathy and airspace disease. Filling defect consistent with thrombus that was present in the distal main trunk of the right lower lobe pulmonary artery on prior study (series 2 image 60 of that examination) now extends into the segmental right lower lobe branches. No left pulmonary embolus is present. There is minor atherosclerotic calcification of the aortic arch and proximal brachiocephalic arteries. There is no demonstrated aortic dissection. Normal heart and pericardium. Grossly stable mediastinal, subcarinal, and right hilar lymph nodes, the latter areas appearing as a relatively confluent soft tissue density encasing the central bronchovascular structures at the right hilum. There are nonspecific borderline enlarged lymph nodes at the left hilum. The largest there is a 13 x 11 x 10.5 mm infrahilar lymph node on series 2 image 20, series 601 image 125. Normal visualized trachea and bronchi. Mild elevation of left diaphragm is more prominent today. Worsened infrahilar right base peribronchial thickening and ill-defined stranding of inflammatory change or partial volume loss with crowding. Minor subsegmental atelectasis noted in the medial periphery of the right lower lobe. Stable 7 mm nodular density in the posterior periphery of the right lower lobe on series 2 image 116. Calcified granulomata in the anterolateral periphery of the right mid chest and posterolateral periphery of the right upper lobe are unchanged. There is stable minor linear scarring or subsegmental atelectasis anterolateral right middle lobe, as well as focal density in the posterior periphery of the right upper lobe abutting the pleural fissure on series 2 image 165. On the left, there is stable partial lower lobe collapse. There is a stable small to moderate volume left sided pleural effusion. A few gas bubbles are now present within the fluid along the posterior lateral margin of the depressed pleural fissure. Normal chest wall structures. There are stable multilevel degenerative changes of the thoracic spine. Stable mild anterior wedging of the T9 vertebra. Stable old healed lateral left fifth rib fracture and nonunited, distracted fracture of the posterior left sixth rib Normal visualized upper abdomen. CT/CTA Chest W/WO Contrast IMPRESSION: 1. Stable multiple moderate size left pleural effusion. A few gas bubbles now present in the fluid along the posterolateral left mid chest, raising concern of evolving empyema. There is stable partial collapse of the left lower lobe. 2. Worsened infrahilar right base peribronchial thickening and ill-defined stranding of inflammatory change or volume loss/crowding. Stable 7 mm nodule in the posterior peripheral right lower lobe. Occasional calcified granulomata also noted. 3. Grossly stable mediastinal, subcarinal, and right hilar lymphadenopathy, with confluent soft tissue density encasing the central right bronchovascular structures. 4. Incompletely occlusive thrombus in the right lower lobe pulmonary artery has progressed into the segmental right lower lobe branches. This likely reflects local disease secondary to stasis of flow rather than acute pulmonary embolus. Electronically Signed: Collin Michael MD at 17:19 EST , Service support , CC: Kash Rollins MD; Katlyn Mullins DO Flash Ranging Crewmember: Signed HISTORY AND PHYSICAL Observed: 07/03/2018 Status: F Source: [place] EXAM 1:11 PM [facility] REPOSITORY [facility] Medical Records Department [address] [place] [id number] History and Physical 07/03/18 1256 MR#: [id number] Acct: [id number] Name: SHAILA STOLL Rep #: [id number] : 1950 67 From: Doc Higuera MD PCP: Katlyn Mullins DO Status: ADM IN Y Location: [place] [address] Problem List (1) COPD (chronic obstructive pulmonary disease) Status: Chronic (2) Bone metastases Status: Acute (3) Pleural effusion, malignant Status: Acute (4) Prostate cancer Status: Chronic Comment: surgery , R.T. 2015 PSA relapse 2016 ADT (5) Cancer of lower lobe of left lung Status: Chronic (6) Pulmonary embolism Status: Suspected Qualifiers: (7) Adenocarcinoma of lung Status: Chronic Qualifiers: (8) Hyperlipidemia Status: Chronic (9) Hypertension Status: Chronic (10) History of prostatectomy Status: Chronic History of Present Illness Date of Admission: 07/03/18 Chief Complaint: Abdominal pain. The patient is a 67 year old M with past medical history as mentioned above presented to the emergency room because of abdominal pain and fatigue. His symptoms started last night with abdominal pain, located in the mid abdomen, dull aching pain, 3 out of 10 in severity, not radiating, no associated symptoms and without aggravating or relieving factors. He denied nausea or vomiting. Denies constipation or diarrhea. He denies urinary symptoms. He mentioned that he has been having symptoms of chest pressure intermittently for the last several weeks. He denied actual chest pain. He denied worsening shortness of breath, cough or sputum production. He denies fever or chills. He had ultrasound- guided left thoracentesis yesterday that was done by urology, approximately 1780 cc of blood-tinged fluid was drained. He has a history of adenocarcinoma of the lung status post left lower lobe resection and chemotherapy. He had a PET scan done on June 28, 2018 that revealed increased glucose uptake in the mediastinum and bilateral thoracic perihilum with criteria for viable neoplasm. He has a history of bladder cancer status post prostatectomy back in 2014 and he has been on leuprolide. He had a history of recurrent DVTs/PEs and he developed recurrent blood clots while on Eliquis and that is why he was started on therapeutic Lovenox. In the emergency room, patient was afebrile, blood pressure and heart rate were stable, pulse ox was 98% on 2 L. Routine blood work was remarkable for anemia with stable hemoglobin, otherwise normal. His LFT was normal as well as lipase. His EKG revealed normal sinus rhythm without evidence of acute ischemic changes. His troponin was elevated at 1.81. CT scan abdomen and pelvis without contrast revealed worsening consolidation and effusion in the left lung base and no evidence of significant acute intra-abdominal pathology. Chest x-ray revealed cardiomegaly, small left pleural effusion and probable left lower lobe consolidation. He is being admitted for acute ST elevation IL, worsening left lower lobe consolidation/atelectasis and unexplained abdominal pain. Past Medical History Past Medical History (Chronic Problems): Chronic Problems (Last Updated 07/03/18 @ 12:52 by Doc Higuera MD) COPD (chronic obstructive pulmonary disease) (Chronic) Prostate cancer (Chronic) surgery , R.T. 2014 PSA relapse 2016 ADT Multiple sclerosis (Chronic) left leg weakness Cancer of lower lobe of left lung (Chronic) Regional lymph node metastasis present (Chronic) Anemia (Chronic) Adenocarcinoma of lung (Chronic) Hyperlipidemia (Chronic) Hypertension (Chronic) History of prostatectomy (Chronic) 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) [facility] 07/03/17 Medical History: Medical History (Last Updated 07/03/18 @ 12:52 by Doc Higuera MD) Adenocarcinoma of lung (Chronic) C34.90 Hyperlipidemia (Chronic) E78.5 Hypertension (Chronic) I10 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) [facility] 07/03/17 BLOOD CLOT LUNGS Deep vein blood clot of left lower extremity I82.402 Deep vein blood clot of right lower extremity I82.401 Allergies morphine Adverse Reaction (Intermediate, Verified 07/03/18 09:12) MAKES HIS NAUSEATED AND SICK Home Medications: Ambulatory Orders Medication Instructions Recorded Leuprolide Acetate [Lupron Depot 3.75 mg IM Q90D #0 10/02/17 Surgical History: Surgical History (Last Updated 07/03/18 @ 12:52 by Doc Higuera MD) History of prostatectomy (Chronic) Z98.890, Z90.79 Surgical History: - - Left lower lobe resection. Prostatectomy. Psychiatric History: No pertinent psych hx Lives: Spouse/ Significant Other Smoking Status: Former smoker Alcohol: None, Rare - *Family History Maternal Family History: Family History (Last Reviewed 07/01/18 @ 12:53 by HAI Zamora) Father Prostate cancer Liver cancer Liver disease Mother Bone cancer History Items: No pertinent history Paternal Family History: Family History (Last Reviewed 07/01/18 @ 12:53 by HAI Zamora) Father Prostate cancer Liver cancer Liver disease Mother Bone cancer History Items: No pertinent history Review of Systems Constitutional: Reports: Anorexia, Weakness, Fatigue. Denies: Chills, Fever Eyes: Denies: Blurred vision, Double vision, Drainage, Redness HEENT: Denies: Difficulty Hearing, Ear Pain, Eye Pain, Nasal Congestion, Sore Throat Cardiovascular: Reports: Chest Pressure. Denies: Chest Pain, Heaviness, Light Headedness, Palpitations, Paroxysmal Noc. Dyspnea, Syncope Respiratory: Denies: Cough, Hemoptysis, Pleuritic Pain, Shortness of Breath, Sputum production, Wheezing Gastrointestinal: Reports: Abdominal Pain. Denies: Constipation, Diarrhea, Hematochezia, Nausea, Melena, Vomiting Genitourinary: Denies: Dysuria, Frequency, Hematuria Musculoskeletal: Denies: Arm Pain, Back Pain, Foot Pain Skin: Denies: Dryness, Rash Neurological: Denies: Balance problems, Blurred vision, Change in Speech, Slurred speech, Confusion, Headaches, Incoordination, Numbness Psychiatric: Denies: Anxiety, Depression Endocrine: Denies: Change in Body Habitus, Polydipsia VTE Information - Inpt Only VTE Present on Admission: No VTE Mechan Device Prophylaxis: None VTE Pharm Prophylaxis ordered?: No Patient Problems: Active and Suspected Problems (Last Updated 07/03/18 @ 12:52 by Doc Higuera MD) Bone metastases (Acute) Pleural effusion, malignant (Acute) - Physical Exam General: Alert, Oriented x3, Cooperative, No apparent distress HEENT: Atraumatic, PERRLA, EOMI, Normocephalic Oral: Moist Mucosa, No Gingival or Mucosal Lesions/ Ulcerations Neck: Supple, No JVD, Negative Carotid Bruits, Trachea Midline, Thyroid Normal Size and Texture Lungs: Clear to auscultation, No rhonchi, No wheeze, No rales, Diminished Cardiovascular: Regular rate, Regular Rhythm, Normal S1, Normal S2, No murmurs, PMI Normal Abdomen: Bowel Sounds Present, Soft, Non Tender, Non-Distended, No Hepato-splenomegaly Extremities: No clubbing, No cyanosis, No edema Skin: No rashes, No breakdown Lymphatic: No Cervical, Supraclavicular, or Inguinal Adenopathy Neurological: Cranial nerves II-XII grossly intact, Motor Exam 5/5 strength throughout Psych/Mental Status: Normal Affect, Appropriate, Alert and oriented to time, place, person, mood and affect Vital Signs Temp Pulse Resp BP Pulse Ox 98.3 F 81 16 141/78 H 98 07/03/18 11:43 07/03/18 11:43 07/03/18 11:43 07/03/18 11:43 07/03/18 11:43 Oxygen Flow Rate (L/min) 2 Oxygen Delivery Method Nasal Cannula Weight: 185 lb 13.595 oz Body Mass Index (BMI) 26.6 Laboratory Tests Past 24 Hrs WBC RBC Hgb Hct MCV MCH MCHC RDW Clinical Impression(s) from Imaging Studies Abdomen/Pelvis CT 07/03/18 09:21 IMPRESSION: Worsening consolidations and effusions at the left lung base and nodular changes at the right lung base. Partially visualized right hilar and subcarinal lymphadenopathy. Bilateral renal cysts. Electronically Signed: Fritz Lee, at 10:19 EST Tel , Service support , Chest X-Ray 07/03/18 09:21 IMPRESSION: Stable-appearing consolidation and effusion at the left lung base. Electronically Signed: Fritz Lee, at 10:34 EST Tel , Service support , Assessment/Plan All Active Problems (Last Updated 07/03/18 @ 12:52 by Doc Higuera MD) Bone metastases (Acute) Pleural effusion, malignant (Acute) This is a 67 years old male patient presented to the emergency room because of vague abdominal pain and fatigue, found to have elevated troponin consistent with acute non-ST elevation IL without evidence of acute ischemic changes on EKG. #1 acute non-ST elevation IL: Troponin is elevated at 1.81, no acute ischemic changes on EKG. At this time, patient denies any chest pain. His vital signs are stable. He had 2D echocardiogram on June 18, 2018 and revealed normal LV size and function, ejection fraction of 60%, stage II diastolic dysfunction. Plan: Admit to PCU, cardiac monitoring, serial cardiac enzymes, repeat EKG tomorrow morning, continue aspirin and bisoprolol, continue therapeutic Lovenox, cardiology consult, repeat CBC and BMP tomorrow morning, fasting lipid profile, PT OT evaluation and treatment. #2 abdominal pain: Mild, vague, no clear etiology. CT scan abdomen and pelvis reviewed, no acute intra-abdominal pathology identified. BMP, lipase and LFT was normal. Lactic acid was normal. Plan for IV fluids, cardiac diet, IV antiemetics, IV pain medications. #3 left pleural effusion: Malignant, status post left thoracentesis that was done yesterday. CT scan abdomen revealed increasing left lower lobe consolidation. At this time, I doubt acute pneumonia. Chest x-ray revealed small left pleural effusion with left lower lobe consolidation. Patient denies any cough or sputum reduction, no fever. He has no leukocytosis, lactic acid is normal. This could be due to recurrence of his cancer. Plan: Bronchodilators, chest physiotherapy, pulmonology consult. #4 history of adenocarcinoma of the lung: Status post resection of the left lower lobe, status post chemotherapy. He had a PET scan done recently that revealed increased glucose uptake in the mediastinum and pre-hilum suggestive of viable neoplasm. Plan: Pulmonology consult. #5 history of prostate cancer: Status post prostatectomy, on leuprolide. Stable, continue same medications. #6 hypertension: Blood pressure stable, continue bisoprolol. #7 history of recurrent DVTs/PEs: Continue therapeutic Lovenox daily. #8 DVT prophylaxis: Patient will be on therapeutic Lovenox. This note was generated with [employer] dictation software. It may contain incorrect words, spelling, and punctuation that were not noted in checking the note before signing. Code Visit Inpatient E AND M: 94849 Init Hosp L3 07/03/18 1311 <Electronically signed by Doc Higuera MD> Date Doc Higuera MD Cosigner Signature: Date (if applicable) CC: Doc Higuera; Katlyn Mullins DO Signed EMERGENCY DEPARTMENT Observed: 07/03/2018 Status: F Source: [place] SUMMARY 10:44 AM [facility] REPOSITORY [facility] Medical Records Department [address] [place] [address] Emergency Department Summary 07/03/18 1040 MR#: [id number] Acct: [id number] Name: STOLLSHAILA Rep #: [id number] : 1950 67 From: Grazyna Hernandez DO PCP: Katlyn Mullins DO Status: REG ER - ER Visit Summary Date of Service: 07/03/18 Chief Complaint: [Abdominal pain and fatigue] History of Present Illness: The patient is a 67 M [presents to the emergency department complaint of extreme fatigue this morning. Patient states that he also had some upper abdominal discomfort that started this morning that he ranked about a 4 5 out of 10 on initial presentation of the abdominal pain however on arrival to ER he states the pain is improved and only rates it a mild 2 out of 10 currently. Patient denies any vomiting or diarrhea. He denies any fevers. Patient states that he had a procedure performed yesterday a thoracentesis to take off 2 L of fluid off his left lung. Patient has a history of cancer in the left lung and he had a lobectomy of the left side earlier this year. Patient states that he was told that his cancer returned. Patient had been on Lovenox for history of pulmonary embolism and DVT but discontinued it several days ago to have the thoracentesis performed and patient was supposed to restart that today. Patient denies any chest pain currently but has had some intermittent pressure in his chest. Patient has had fatigue for weeks but more severe today.] Physical Examination: [HEENT-PERRLA, EOMI. Cranial nerves II through XII grossly intact. TMs clear. Mucous membranes moist. No adenopathy. Cardiovascular-regular rate and rhythm without murmur or ectopy Lungs-rales noted in both bases left greater than right. No tachypnea. No accessory muscle use or retractions. Abdomen-normoactive bowel sounds, soft. Patient has some mild tenderness in the epigastric region. There is no rebound, rigidity, or perineal signs. Extremities-intact 4, normal range of motion, normal pulses, atraumatic] Test Results: [CBC with differential obtained showed a white count of 9.9, hemoglobin 9.7, hematocrit 30, platelet 207. Chemistries unremarkable. LFTs were normal. Lipase was 70. Troponin was elevated 1.8. EKG obtained arrival shows sinus rhythm with a ventricular rate of 83 bpm with no acute ST segment changes. Chest x-ray obtained showed cardiomegaly and left pleural effusion. CT scan of the abdomen pelvis without contrast showed increased consolidation left lung base and increased effusion. No significant abnormalities noted in the abdomen.] Emergency Department Course and Treatment: [Patient was given aspirin in the emergency department and given his Lovenox dose.] Treatment Plan: [Admit for further workup and evaluation] Disposition: [Admit] Impression: [Abdominal pain-etiology uncertain Non-ST elevation IL Fatigue] This note was generated with [employer] dictation software. It may contain incorrect words, spelling, and punctuation that were not noted in review of the chart prior to signing ED Disposition - Plan for ED Patient: Chief Complaint: Abd Pain Referrals: Katlyn Mullins, [Primary Care Provider] - What to do if you have Problems For any increased pain, shortness of breath, bleeding, nausea or vomiting, chest pain, or any unexpected problems, contact your Primary Care Provider. Call [facility] ([phone]) or report to the closest Emergency Room. Call 911 if necessary. 07/03/18 1044 <Electronically signed by Grazyna Hernandez DO> Date Grazyna Hernandez DO Cosigner Signature (If Indicated): Date CC: Katlyn Mullins DO LACTIC ACID Collected: 07/03/2018 Status: F Source: [place] 9:32 AM [facility] REPOSITORY Order Comment: Yes/No query for Sepsis Lactate Rule Y TYPE CODE TESTS RESULT OUT OF RANGE REFERENCE UNITS LAB L503.6005 0.4-2.0 mmol/L Normal LACTIC ACID 1.1 Performed By: #### L503.6005 #### [facility] [address] [place], [address] ABDOMEN/PELVIS WITHOUT Observed: 07/03/2018 Status: F Source: [place] CONT 9:22 AM [facility] REPOSITORY [facility] Imaging Services [address] [place] [address] Abdomen/Pelvis without Cont MR#: [id number] Acct: [id number] Name: SHAILA STOLL Davi Rep #: [id number] : 1950 M 67 From: Fritz Lee MD PCP: Katlyn Mullins DO Status: REG ER Study: Abdomen/Pelvis without Cont Date of Exam: 07/03/18 Exam# [id number] Ordering Dr: Grazyna Hernandez DO STUDY: CT ABDOMEN AND PELVIS WITHOUT CONTRAST REASON FOR EXAM: Male, 67 years old. Abdominal pain. Status post thoracentesis. History of lung cancer with left lower lobe lung resection and chemotherapy. Prostate cancer with removal and radiation therapy. Hernia repair. RADIATION DOSAGE (If Supplied By Facility): CTDIvol = ( 11.13 ) mGy, DLP = ( 625.91 ) mGycm TECHNIQUE: Transaxial images were obtained from the dome of the diaphragm to the symphysis pubis without oral contrast, and without intravenous contrast. Sagittal and coronal images were reconstructed. Individualized dose optimization techniques were used for this CT. COMPARISON: June 18, 2018 FINDINGS: There is been interval worsening of consolidations and effusions at the left lung base and nodular changes at the right lung base. The visualized portions of the heart are within normal limits. Partially visualized is lymphadenopathy in the subcarinal and right hilar regions. Normal liver. Normal gallbladder and extrahepatic biliary system. Normal spleen. Normal pancreas. Normal bilateral adrenal glands. There is a 3 cm cyst in the lower pole of the right kidney appearing stable. There is a 2.5 cm cyst in the midpole of the left kidney appearing stable. Normal visualized stomach. Normal small intestine. Normal colon. The appendix is visualized and appears normal. Normal abdominal aorta. Normal inferior vena cava. Normal retroperitoneum. Normal urinary bladder. Normal abdominal wall. Normal osseous structures. CT/Abdomen/Pelvis without Cont IMPRESSION: Worsening consolidations and effusions at the left lung base and nodular changes at the right lung base. Partially visualized right hilar and subcarinal lymphadenopathy. Bilateral renal cysts. Electronically Signed: Fritz Lee, at 10:19 EST Tel , Service support , CC: Graznya Hernandez DO; Katlyn Mullins DO Flash Ranging Crewmember: Signed CHEST 1 VIEW Observed: 07/03/2018 Status: F Source: [place] (PORTABLE) 9:22 AM [facility] REPOSITORY [facility] Imaging Services [address] [place] [id number] Chest 1 View (Portable) MR#: [id number] Acct: [id number] Name: SHAILA STOLL Rep #: [id number] : 1950 M 67 From: Fritz Lee MD PCP: Katlyn Mullins DO Status: REG ER Study: Chest 1 View (Portable) Date of Exam: 07/03/18 Exam# [id number] Ordering Dr: Grazyna Hernandez DO STUDY: X-RAY CHEST REASON FOR EXAM: Male, 67 years old. Left lung cancer and surgery. Post thoracentesis one day ago. TECHNIQUE: Single AP upright view of the chest was obtained frontal projection. Good quality COMPARISON: July 02, 2018. FINDINGS: Again noted is consolidation and effusion at the left lung base appearing similar to the prior study. No definitive pneumothorax is appreciated. Right lung appears grossly clear. There is a small left effusion. Normal size heart. Normal mediastinum and quinton. Normal visualized pulmonary arteries. Normal visualized aortic arch and descending thoracic aorta. Normal visualized thoracic spine. Normal visualized ribs, clavicles, and shoulders. There is no demonstrated abnormality of the visualized soft tissue structures of the upper abdomen. RAD/Chest 1 View (Portable) IMPRESSION: Stable-appearing consolidation and effusion at the left lung base. Electronically Signed: Fritz Lee, at 10:34 EST Tel , Service support , CC: Grazyna Hernandez DO; Katlyn Mullins DO Flash Ranging Crewmember: Signed CBC W/DIFF, AUTOMATED Collected: 07/03/2018 Status: F Source: [place] 9:15 AM [facility] REPOSITORY TYPE CODE TESTS RESULT OUT OF RANGE REFERENCE UNITS LAB L100.1000 4.4-11.0 K/mm3 Normal WBC 9.9 LAB L100.1200 4.6-6.2 M/mm3 Low RBC 3.18 LAB L100.1300 13.0-16.5 g/dl Low HGB 9.7 LAB L100.1400 40-54 % Low HCT 30.1 LAB L100.1500 80-94 fL High MCV 94.7 LAB L100.1600 27.0-32.0 pg Normal MCH 30.5 LAB L100.1700 32-36 g/gl Normal MCHC 32.2 LAB L100.1810 11.6-14.6 % High RDW CV 15.2 LAB L100.1820 35.1-43.9 fl High RDW SD 50.5 LAB L100.1900 150-450 K/mm3 Normal PLT 207 LAB L100.2000 6.2-12.0 fl Normal MPV 8.6 LAB L100.2100 47-70 % High NEUT% 80.6 LAB L100.2200 19-41 % Low LY% 9.6 LAB L100.2300 0-10 % Normal MONO% 8.4 LAB L100.2400 0-5 % Normal EO% 0.5 LAB L100.2500 0-1 % Normal BASO% 0.2 LAB L100.2550 0.0-0.9 % Normal IM GRAN % 0.700 Result Comment: IG% - Immature Granulocytes (promyelocytes, myelocytes and metamyelocytes) > 1% indicates that a LEFT SHIFT is Present. LAB L100.2620 2.0-7.7 X10 3/uL High Absolute Neut 8.0 LAB L100.2720 0.83-4.51 X10 3/ul Normal Absolute Lymph 0.95 Performed By: #### L100.0100 #### [facility] [address] [place], [place], [address] COMPREHENSIVE METABOLIC Collected: 07/03/2018 Status: F Source: [facility] 9:15 AM [facility] REPOSITORY TYPE CODE TESTS RESULT OUT OF RANGE REFERENCE UNITS LAB L501.0100 74-106 mg/dL High GLU 114 Result Comment: Fasting Glucose result from 100 to 125 mg/dL suggests IMPAIRED HOMEOSTASIS per A.D.A. criteria. Please note revised GLUCOSE reference range effective 2017. LAB L501.1000 7-18 mg/dL Normal BUN 16 LAB L501.1100 0.70-1.30 mg/dL Normal CREAT,SERUM 1.08 Result Comment: The validity of the calculated GFR AND GFRAA in patients over 70 years has not been determined. Clinical correlation is essential. LAB L501.1110 >60 mL/min Normal EST GFR 73 Result Comment: Non- GFR Calc LAB L501.1115 >60 mL/min Normal EST GFR - AA 88 Result Comment: GFR Calc LAB L501.1255 ml/min Normal Estimated CRCL 70.41 LAB L501.1300 10-20 RATIO Normal BUN/CRE 14.8 LAB L501.1500 6.4-8. g/dL Normal 2 T PROT 7.9 LAB L501.1800 3.2-5. g/dL Low 0 ALB 2.7 LAB L501.1950 2.2-4. g/dL High 2 GLOB 5.2 LAB L501.2000 0.9-2. RATIO Low 4 A/G 0.5 LAB L501.2200 8.5-10 mg/dL Low .1 CA 8.3 LAB L501.4100 15-37 U/L High AST 39 LAB L501.4305 45-117 U/L High ALK P 135 LAB L501.4405 16-61 U/L Normal ALT 35 LAB L501.4600 0.20-1 mg/dL Normal .00 T BILI 0.50 LAB L501.5300 136-14 mmol/L Normal 5 NA 137 LAB L501.5600 3.5-5. mmol/L Normal 1 K 4.1 LAB L501.5900 98-107 mmol/L Normal CL 103 LAB L501.6100 21.0-3 mmol/L Normal 2.0 CO2 26.0 LAB L501.6200 5-15 Normal GAP 8 Performed By: #### L500.4050, L501.2450, L501.4010 #### [facility] [address] [facility] [place], [place], [address] LIPASE Collected: 07/03/2018 Status: F Source: [place] 9:15 AM [facility] REPOSITORY TYPE CODE TESTS RESULT OUT OF REFERENCE UNITS RANGE LAB L501.2450 73-393 U/L Low LIPASE 70 Performed By: #### L500.4050, L501.2450, L501.4010 #### [facility] [address] [facility] [place], [place], [address] TROPONIN-I Collected: 07/03/2018 Status: F Source: [place] 9:15 AM [facility] REPOSITORY TYPE CODE TESTS RESULT OUT OF RANGE REFERENCE UNITS LAB L501.4010 <0.045 ng/mL High alert 1.810 TROPONIN-I Result Comment: Critical Result(s) Called at: 09:55:33 07/03/2018 by: Charles Wade to Cipriano HEREDIA TROPONIN-I EXPECTED VALUES <0.045 Negative 0.045 - 0.590 Consistent with Cardiac Damage > OR = 0.600 Critical Value Not every elevated troponin is indicative of IL. These values should be used with clinical judgement in examining the patient's clinical picture for diagnosis. To establish a diagnosis of IL versus myocardial injury, there must be a demonstrated rise and/or fall in the troponin values, in addition to ischemic symptoms, EKG changes, new regional wall motion abnormality, and/or angiographical evidence. PLEASE NOTE: REFERENCE RANGES EDITED 17 Performed By: #### L500.4050, L501.2450, L501.4010 #### [facility] [address] [place], [address] PULMONARY VISIT REPORT Observed: 07/02/2018 Status: F Source: [place] 6:41 PM [facility] REPOSITORY [facility] of [address] [place] [address] OFFICE VISIT Date of Service: 07/01/18 MR#: [id number] Acct: [id number] Name: SHAILA STOLL Rep #: [id number] : 1950 Provider: Miguelina Saenz Age/Sex: 67/M Location: [facility] Status: Signed Assessment AND Plan 1. Pleural effusion, malignant J91.0 Plan Thoracentesis pending. Patient has been asked to call us on Thursday to give us an update on how he is feeling status post thoracentesis. There is a large amount of fluid seen on CT exam and anticipate and hope that he will get some relief of his shortness of breath with procedure. 2. COPD (chronic obstructive pulmonary disease) J44.9 Plan Patient was provided with an albuterol nebulizer treatment in the office today and responded well, found to have some relief of his shortness of breath with the use of the nebulizer. He will be set up with a nebulizer and albuterol to be used at home. Keep previously scheduled routine follow-up. Plan Detail Other Orders Orders: Other Medications New: Discontinued: albuterol sulfate Discontinued Reason: 2.5 mg (3 mL) Continuous Nebulization ONCER06.02 Office Medication has been Documented as 1 mL 0RF given HPI USE OF CONTINUOUS OXYGEN, PRODUCTIVE COUGH: Chief Complaint: Shortness of breath HPI Comments Details: Patient presents to the office today for an acute visit regarding worsening shortness of breath. The patient also reports that he has had a more frequent cough that is productive of white sputum in addition to increase in wheezing. He is currently on supplemental oxygen, in a wheelchair and accompanied by his . The patient reports that since he was last seen in the office his shortness of breath has worsened, as well as his cough. He is scheduled for thoracentesis tomorrow, and is hopeful that it will help relieve his symptoms. He did receive results from his PET scan from the oncologist today and admits that he is spirits are down. He also has a decreased appetite and feels as though the pressure from his lungs are affecting his ability to tolerate a diet. He is not currently experiencing any hemoptysis. He denies any chest pain or palpitations. He is having some mild lower extremity edema. He denies any fever, chills or body aches. See complete review of systems. Is not currently on any maintenance inhalers, nor albuterol. 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 Required: No Accompanied by: Allergies morphine Adverse Reaction (Intermediate, Verified 07/01/18 12:23) MAKES HIS NAUSEATED AND SICK Medications Lupron Depot 150 mg IM UD 10/02/17 [History Confirmed 07/01/18] Bisprolol Fumarate 10 mg PO DAILY 11/03/17 [History Confirmed 07/01/18] Handicap Placard #1 ea 02/18/18 [Rx Confirmed 07/01/18] Aspirin [Aspirin, Baby] 81 mg PO DAILY@0800 #30 tab.chew 04/01/18 [Rx Confirmed 07/01/18] enoxaparin 150 mg/mL subcutaneous syringe 150 mg SC DAILY #30 ml 04/28/18 [Rx Confirmed 07/01/18] albuterol sulfate concentrate 2.5 mg/0.5 mL solution for nebulization 2.5 mg INHALATION Q4H PRN #180 ea 07/02/18 [Rx] PFS Medical History Viral pharyngitis (Acute) Nasopharyngitis (Acute) Limb weakness (Acute) unusual tierdness (Acute) Sinusitis (Acute) SOB (shortness of breath) (Acute) Dyspnea (Acute) Adenocarcinoma of lung (Chronic) Hyperlipidemia (Chronic) Hypertension (Chronic) 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) LYMPH NODE REMOVAL-CHEST (Acute) BLOOD CLOT LUNGS (Acute) Deep vein blood clot of left lower extremity (Acute) Deep vein blood clot of right lower extremity (Acute) Surgical History History of prostatectomy (Acute) Family History Father Prostate cancer Liver cancer Liver disease Mother Bone cancer Social History Smoking Status: Former smoker how long ago did patient quit smokin, 2 pk/day second hand exposure: Yes alcohol intake: never substance use type: does not use caffeine: Yes what type of physical activity do you participate in: none frequency: does not exercise seatbelt use: always Review of Systems Const CONSTITUTIONAL: Positive anorexia and fatigue; negative body ache, chills, daytime sleepiness, fever(s), night sweats, oral thrush, stops breathing during sleep, weight loss, sleeping in chair, weight loss, weight gain, frequent colds, seasonal allergies, other, headache(s) or orthopnea EETM Ear Nose Throat Mouth: Positive hearing normal; negative hard of hearing, hoarseness, dry mouth in morning, change in vision, itchy eyes, eye pain, swallowing Difficulty, ear pain, nose bleed, headache(s), mouth pain, nasal congestion, nasal discharge, post nasal drip, sinus pain, sinus pressure, sore throat or other Cardio Cardiovascular: Negative chest pain, chest pain at rest, chest pain with activity, irregular heart rhythm, edema, shortness of breath when lying down, palpitations, murmur or other Resp Respiratory: Positive as per HPI, shortness of breath shortness of breath: Positive while talking, with activity, worsening and lying down, pain with cough, cough cough: Positive productive color: Positive thick and clear and increase in cough frequency and chest tightness; negative wheezing, chest congestion, pain on inspiration, inhalers, increase use of rescue inhalers, snoring, apnea or other Gastro Gastrointestional: Negative bloody stools, change in appetite, difficulty swallowing, reflux, hematemesis, melena stool, loose stool, constipation or other Genitourinary: Negative blood in urine, nocturia, pain with urination or other Musc Musculoskeletal: Negative body pain, back pain, neck pain or other Skin/Breast Skin/Breast: Negative dry skin, itching, rash, unusual bruising, breast lump or other Neuro Neurological: Negative restless legs, confusion, weakness or other Psych Psychocological: Positive hopelessness; negative abnormal sleep pattern, anxiety, thoughts of hurting self/others or other Lymph Lymphatic: Negative easy bleeding, easy bruising, swollen lymph nodes or other Exam Const Constitutional: Positive conversant, cooperative, in no acute respiratory distress, well developed, well nourished, good hygiene, frail appearing and wearing supplemental oxygen Head Head: Positive normocephalic and atraumatic; negative cyanosis of lips/distal nose Eyes Eye: Positive clear conjunctiva; negative nystagmus or scleral abnormality Ears Ear: Positive hearing normal and external ears normal; negative hard of hearing Nose Nose: Positive external nose normal and no nasal discharge; negative epistaxis Mouth Mouth: Positive oral mucosae normal, no lesions, dentures and posterior oropharynx is adequate; negative post nasal drip, malodorous breath or oral thrush present Mallampati Score: I: Mallampati Score Neck Neck: Positive normal visual inspection, full ROM and trachea midline; negative lymphadenopathy, JVD or tender Chest Wall Chest: Positive normal inspection of the chest and symmetric chest movement; negative increased A/P diameter Resp lung sounds: Positive diminished, wheezes, dullness to percussion dullness: Yes left, normal expiratory time and increased work of breathing; negative rales or use of accessory muscles Cardio Cardiac: Positive regular rate, regular rhythm, S1 normal and S2 normal; negative murmur GI GI: Positive normal to inspection; negative distended Genitourinary: Positive deferred Musc Musculoskeletal: Positive steady gait and ROM normal; negative kyphosis or scoliosis Skin Pulmonary Skin Exam: Positive intact; negative rash Pulses Pulse: Yes pulses normal x4 extremities Extremities Extremities: Yes capillary refill normal, No clubbing, No cyanosis, Yes edema Location: lower extremity location: Bilateral pitting trace Neuro Neurologic: Yes conversant, Yes no focal neuro deficits, Yes normal concentration, Yes understands questions, Yes cooperative, Yes normal cognition, Yes normal coordination Lymph Lymphatic: No lymphadenopathy, No tenderness, No cervical adenopathy Psych Appearance: Positive grossly normal, eye contact and well kempt Mental Status: Positive mental status grossly normal Affect: Positive normal affect Office Meds albuterol sulfate Performing Provider: HAI Zamora Administered by: Nicole Garcia on 07/01/18 13:13 Dose Route Admin Location Lot Number Expiration Date NDC Bologna Lacer 2.5 mg Continuous Nebul [id number] 10/01/18 9223-5793-74 MYLAN ization Coding Level of Care Code Off vis,est,level 4 Diagnoses Pleural effusion, malignant J91.0 COPD (chronic obstructive pulmonary disease) J44.9 07/02/18 1841 <Electronically signed by Miguelina VALLES> Date Miguelina VALLES Cosigner Signature: Date (if applicable) CC: Fernando Mock DO PROTEIN, BODY FLUID Collected: 07/02/2018 Status: F Source: [place] 11:03 AM [facility] [place] REPOSITORY Order Comment: Specimen Source: THORACENTESIS TYPE CODE TESTS RESULT OUT OF RANGE REFERENCE UNITS LAB L503.0300 Not Establ. g/dL Normal 5.5 PROTEIN,BF Performed By: #### L503.0300, L504.0250 #### [place] [facility] [address] [place], [address] LDH,BODY FLUID Collected: 07/02/2018 Status: F Source: [place] 11:03 AM [facility] [place] REPOSITORY Order Comment: Specimen Source: THORACENTESIS TYPE CODE TESTS RESULT OUT OF RANGE REFERENCE UNITS LAB L504.0250 Not Establ. Units/l Normal LDH,BF 837 Performed By: #### L503.0300, L504.0250 #### [facility] [address] [place], [address] Observed: 07/02/2018 Status: F Source: [place] CULTURE, BODY FLUID 11:[place] [facility] [place] Antibiotics Last 48 Hours? UNK List Antibiotics to be Started? UNK Gram Stain Centrifuged Specimen? Culture performed on centrifuged specimen Gram Stain 3+ White Blood Cells No organisms seen Body Fluid Cult No growth aerobically. Cult, Anaerobic No growth in 5 days. Performed By: #### M100.1300 #### [facility] [address] [place], [address] FLUID/WASHING Observed: 07/02/2018 Status: F Source: [place] 11:[place] [facility] [place] Patient: SHAILA STOLL : 1950 (67/M) Acct Num: [id number] Phys: Miguelina Saenz SALES RESEARCH ANALYST Unit Num: [id number] Loc: US Specimen: [id number] Received: 07/02/18 - 1154 Spec Type: Fluid TISSUES 1 TISSUES: Pleural fluid, NOS ADDENDUM Addendum Number 1 Flow analysis from [facility] does not reveal a lymphoproliferative disorder. The complete flow report is viewable in patient's EMR. Addendum Signed [facility] 07/07/18 <signature on file> COMMENT Immunohistochemistry ([id number]) supports the above diagnosis. Mucin stain with matched control is positive in malignant cells. PDL-1 study is pending and will be reported as an addendum. This case was discussed with Dr. Mock 07/06/18. Case has been reviewed in consultation with Dr. Renee who concurs with the above diagnosis. IDC:[facility] CYTOLOGY GROSS Received is 180 ml of red cloudy fluid labeled with the patient's name and and designated per the requisition as thoracentesis. Submitted for cytology preparation including cell block. / 07/02/18 TC:0 CPT: 37503, 92457, 34552 CYTOLOGY STUDY Slides are reviewed. DIAGNOSIS CYTOLOGY Thoracentesis fluid for cytology (cytospin and cell block): Positive for malignant cells, consistent with adenocarcinoma. AM:rg 07/05/18 HEADER OPERATION: Ultrasound-guided left thoracentesis PRE-OP DIAGNOSIS: Pleural effusion TISSUE SUBMITTED: Thoracentesis fluid for cytology Signed [facility] 07/07/18 <signature on file> Performed By: #### PFLU #### [facility] [address] [place], [address] CYTOLOGY, BODY FLUID / Collected: 07/02/2018 Status: F Source: [place] CSF 11:03 AM [facility] [place] REPOSITORY Order Comment: Comments: with flow cytometry Comments: with flow cytometry Specimen Source: THORACENTESIS TYPE CODE TESTS RESULT OUT OF RANGE REFERENCE UNITS LAB L350.1000 SEE Normal PATHOLOGY CYTOLOGY,BF REPORT /CSF Result Comment: Specimen submitted to Anatomical Pathology Department for testing. Performed By: #### L350.1000 #### [facility] [address] [place], [address] MISCELLANEOUS LAB Collected: 07/02/2018 Status: F Source: [place] PROCEDURE 11:00 AM [facility] [place] REPOSITORY Order Comment: Comments: [id number] [id number] pleural effusion Test(s) Ordered: Flow [id number] TYPE CODE TESTS RESULT OUT OF RANGE REFERENCE UNITS LAB L801.1541 Normal [facility] FLOW SEE PATH TEST Performed By: #### L801.1541 #### [facility] [address] [place], [address] CHEST INSP/EXP 2 VIEW Observed: 07/02/2018 Status: F Source: [place] 10:43 AM [facility] [place] REPOSITORY [facility] Imaging Services [address] [place] [address] Chest Insp/Exp 2 View MR#: [id number] Acct: [id number] Name: SHAILA STOLL Rep #: [id number] : 1950 M 67 From: Chacho Babcock MD PCP: Katlyn Mullins DO Status: REG CLI Study: Chest Insp/Exp 2 View Date of Exam: 07/02/18 Exam# [id number] Ordering Dr: Chacho Babcock MD STUDY: X-RAY CHEST REASON FOR EXAM: Male, 67 years old. Status post left thoracentesis. TECHNIQUE: AP inspiration and expiration views were obtained. COMPARISON: Comparison is made with prior study dated October 02, 2017. FINDINGS: The patient is status post left thoracentesis. Residual left pleural-parenchymal changes are seen. There has been improvement in the effusion. There is no evidence of pneumothorax. RAD/Chest Insp/Exp 2 View IMPRESSION: Status post left thoracentesis. Residual pleural-parenchymal changes are seen. There is no evidence of pneumothorax. Electronically Signed: Chacho Babcock MD at 8:17 EST Tel [phone], Service support , CC: Chacho Babcock MD; Katlyn Mullins DO Flash Ranging Crewmember: Signed THORACENTESIS W US Observed: 07/02/2018 Status: F Source: [place] 9:41 AM [facility] [place] REPOSITORY [facility] Imaging Services [address] [place] [address] Thoracentesis W US MR#: [id number] Acct: [id number] Name: JERMANSHAILA Davi Rep #: [id number] : 1950 M 67 From: Chacho Babcock MD PCP: Katlyn Mullins DO Status: REG CLI Study: Thoracentesis W US Date of Exam: 07/02/18 Exam# [id number] Ordering Dr: Miguelina Saenz SALES RESEARCH ANALYSTSusana PROCEDURE: ULTRASOUND GUIDED THORACENTESIS. DATE: July 02, 2018. INDICATION: Male, 67 years old. Left pleural effusion PHYSICIAN: Chacho Babcock M.D. PROCEDURE: The risks, benefits, and alternatives to the procedure were explained to the patient. The specific risks of bleeding, infection, and pneumothorax requiring chest tube insertion were discussed and accepted. Written informed consent was obtained. Ultrasonographic evaluation of the left lower pleural space was carried out. An adequate pocket was identified. The patient was placed in the sitting, upright position. The overlying skin was prepped and draped in sterile fashion. 1% lidocaine was administered subcutaneously for local anesthesia. Under ultrasound guidance, a 5 Ukrainian thoracentesis needle/catheter system was advanced into the left posterior lower pleural fluid collection. Approximately 1780 mL of blood-tinged fluid fluid was drained. The catheter was removed, and a sterile dressing was applied. A specimen was collected and sent to the laboratory for analysis, as requested by the referring clinician. The patient tolerated the procedure well. A chest x-ray was ordered. US/Thoracentesis W US IMPRESSION: Ultrasound-guided left thoracentesis. Electronically Signed: Chacho Babcock MD at 11:37 EST Tel [phone], Service support , CC: Miguelina Mullins DO Flash Ranging Crewmember: Signed IMMUNOHISTOCHEMISTRY Observed: 07/02/2018 Status: F Source: [place] 12:00 AM [facility] [place] REPOSITORY Patient: SHAILA STOLL : 1950 (67/M) Acct Num: [id number] Phys: Miguelina Saenz NP Unit Num: [id number] Loc: US Specimen: [id number] Received: 07/05/181314 Spec Type: IMMUNO TISSUES 1 TISSUES: THORACIC FLUID SPECIMEN INFORMATION: Tissue Source: Thoracentesis fluid Clinical Info: Pleural effusion Specimen Number: [id number] CPT code: 58615, 69723 x22 METHODOLOGY: Deparaffinized sections of prefer/formalin-fixed tissue or PAP/DQ stained slides are incubated with monoclonal/polyclonal antibodies/oligonucleotide probes. Localization is made via biotin free immunoperoxidase method. Appropriate controls are performed and reacted as expected. Results on target cell population are indicated in the following table: RESULTS: ANTIBODY / CLONE RESULT CK7 (OV-TL12/30) positive CK20 (KS20.8) negative CDX2 ([id number]) negative CD45 (RP2/18) negative CALRET (polyclonal) negative Macro (HAM-56) negative Vimentin (V9) negative TTF-1 (8G7G3/1) negative Napsin A (Rabbit Polyclonal) positive PSAP (PASE/4LJ) negative RCC (PN-15) negative HepPar (OCh1E5) negative P53 (DO-7) negative Ki-67 (30-9) positive, low S-100 (4C4.9) negative 34BE12 (34BE12) positive, dim CD56 (123C3.D5) negative Chromo (LK2H10) negative Synapto (polyclonal) negative NSE Neuron Specific Enolase negative CK5-6 (D5 AND 1684) negative CK14 (LL002) negative P40 (BC28) negative These tests were developed and their performance characteristics determined by [facility]. They may not have been cleared or approved by the U.S. Food and Drug Administration. The FDA has determined that such clearance or approval is not necessary. INTERPRETATION: Thoracentesis fluid: Positive for malignant cells, consistent with non-small cell carcinoma. AM:monse 07/07/18 Comment: A non-small cell carcinoma, adenocarcinoma is favored. Case has been reviewed in consultation with Dr. Renee who concurs with the above diagnosis. IDC: PHYSICIAN AND INSTITUTION [place] [id number] Signed Rakesh Schwartz 07/07/18 <signature on file> Performed By: #### PIMM #### [facility] [address] [place], [address] PROTHROMBIN TIME W/INR Collected: 07/01/2018 Status: F Source: [place] 1:57 PM [facility] [place] REPOSITORY TYPE CODE TESTS RESULT OUT OF RANGE REFERENCE UNITS LAB L300.4150 11.7-14.9 SECONDS High PROTIME 15.4 LAB L300.4200 Normal INR 1.2 Performed By: #### L300.3900, L300.4310 #### [facility] [address] [place], [address] PARTIAL THROMBOPLAST Collected: 07/01/2018 Status: F Source: [place] TIME 1:57 PM [facility] [place] REPOSITORY TYPE CODE TESTS RESULT OUT OF REFERENCE UNITS RANGE LAB L300.4310 24.1-36.2 Seconds High PTT 41.7 Performed By: #### L300.3900, L300.4310 #### [facility] [address] [place], [address] PROTEIN, TOTAL Collected: 07/01/2018 Status: F Source: [place] 1:57 PM [facility] [place] REPOSITORY Order Comment: Serial Specimen #1, #2 or #3? 0 TYPE CODE TESTS RESULT OUT OF RANGE REFERENCE UNITS LAB L501.1500 6.4-8.2 g/dL High T PROT 8.7 LAB L501.1950 2.2-4.2 g/dL High GLOB 5.7 LAB L501.2000 0.9-2.4 RATIO Low A/G 0.5 Performed By: #### L001.0705, L504.2610 #### [facility] [address] [place], [address] LDH Collected: 07/01/2018 Status: F Source: [place] 1:57 PM [facility] [place] REPOSITORY Order Comment: Serial Specimen #1, #2 or #3? 0 TYPE CODE TESTS RESULT OUT OF RANGE REFERENCE UNITS LAB L504.2610 87-241 U/L Normal LDH 233 Performed By: #### L001.0705, L504.2610 #### [facility] [address] [place], [address] ONCOLOGY VISIT REPORT Observed: 07/01/2018 Status: F Source: [place] 12:33 PM [facility] [place] REPOSITORY [facility] [address] [address] OFFICE VISIT Date of Service: 07/01/18 1226 MR#: [id number] Acct: [id number] Name: SHAILA STOLL Rep #: [id number] : 1950 From: Dago [place]er MD Age/Sex: 67/M Location: OMD Status: Signed - Problem List (1) Cancer of lower lobe of left lung Status: Chronic (2) Regional lymph node metastasis present Status: Chronic (3) Prostate cancer Status: Chronic Comment: surgery , R.T. 2015 PSA relapse 2016 ADT (4) Anemia Status: Chronic Qualifiers: (5) Pulmonary embolism Status: Suspected Qualifiers: Pulmonary embolism type: other Chronicity: acute Acute cor pulmonale presence: with acute cor pulmonale Qualified Code(s): I26.09 - Other pulmonary embolism with acute cor pulmonale (6) Bone metastases Status: Acute (7) Pleural effusion, malignant Status: Acute - History of Present Illness Patient is a 66-year-old gentleman smoker who quit over 20 years ago after a 30+ pack year smoking who presented with a months history of increasing dyspnea on exertion and wheezing. Chest x-ray followed by a CT scan of the chest revealed a left lower lobe mass. Bronchoscopy by Dr. Mullen on 05/19/2017 showed a left lower lobe endobronchial lesion and biopsy confirmed an adenocarcinoma. Staging PET/CT IMPRESSION: 1. ABNORMAL EXAMINATION INDICATIVE OF MALIGNANT VIABLE NEOPLASM. 2. Increased glucose concentration heterogeneously defined in the left mid-lower posteromedial, posterior hemithorax, left lower lobe, fulfills quantitative criteria for viable neoplasm. 3. The increase in glucose concentration observed in the bilateral thoracic perihilum does not fulfill strict quantitative criteria for viable neoplasm with single point technique. 4. Asymmetric increased glucose concentration noted in the left hemipelvis contiguous to the subcutaneous fat may be further investigated with Brain MRI showed no evidence of metastatic disease. Pulmonary function tests are satisfactory for surgical resection. His past medical history is notable for prostate cancer presenting with an elevated PSA of 42. Patient is status post radical prostatectomy in October 2014 for a Keatchie score 9 adenocarcinoma involving about 80% of the prostate with extra prostatic extension extensive positive margins and lymphovascular invasion as well as tory-neural invasion. Following his surgery patient underwent adjuvant radiation therapy concluded in 2014. At the completion of his treatment his PSA was less than 0.1 however by 2016 PSA relapse prompted initiation of ADT by his urologist which he continues to date with the most recent PSA of less than 0.1. His past medical history is also notable for multiple sclerosis with residual left lower extremity weakness but no recent flares. Treatment: On July 03, 2017 he underwent left lower lobe sleeve lobectomy at [facility] by Dr. Alfonso. Final pathology revealed a 6.5 cm single focus adenocarcinoma G2 negative margins no visceral pleural invasion no lymphovascular invasion and metastatic cancer was found in 1 lymph node position 11 mL (N1) of 16 N1 nodes dissected and non- and 8 N2 nodes dissected. Adjuvant Carbo-Alimta 10/13/2017-12/15/2017 (4 cycles) Delay as per patient request (insurance change) - Past Medical/Social History Past Medical History Past Medical History: Hyperlipidemia,Hypertension Other Past Medical History: MS Cancer: Lung cancer,Prostate cancer Past Surgical History Surgical: Prostatectomy Family History Paternal Past Medical History: Liver disease Paternal History of Cancer Liver cancer,Prostate cancer Maternal Past Medical History: Unknown Maternal History of Cancer: Bone cancer Social History Social History: No changes Smoking Status Former smoker Review of Systems Constitutional:: Reports: Weakness, Fatigue. Denies: Fever, Sweats, Weight loss, Appetite change, Chills Cardiovascular:: Reports: Dyspnea on exertion, Shortness of breath. Denies: Chest pain, Palpitations, Orthopnea, PND Respiratory: Reports: Cough, Shortness of Breath, Shortness of breath upon exertion, Sputum production - Clear. Denies: Hemoptysis, Wheezing Musculoskeletal:: Denies: Back pain, Myalgia, Arthralgia Comment: Uses oxygen when ambulatory, did not appreciate any improvement in exercise tolerance Vital Signs Height 5 ft 10 in Weight: 88.36 kg Weight in Pounds 194.8 lbs Pulse Ox 95 - Physical Exam General: Alert, Oriented x3, No apparent distress Diagnostic Data: Diagnostic Data I personally reviewed patient's PET/CT images and concur with the findings PET, CT Tumor Imaging 06/28/18 09:34 IMPRESSION: 1. ABNORMAL EXAMINATION INDICATIVE OF MALIGNANT VIABLE NEOPLASM. 2. Increased glucose concentration observed in the mediastinum and bilateral thoracic perihilum fulfills quantitative criteria for viable neoplasm. ([place] et al, Journal of Clinical Oncology 16:2142, 1998). 3. Facilitated fluorine labeled glucose metabolism noted in the left mid to lower posterior hemithorax at the pleural interface fulfills quantitative criteria for viable pleural neoplasm. (Durham, et al, Chest 122:1918, 2002). 4. Viable osseous neoplasm appears evident in the left posterior ilium and bilateral posterior ribs. (Bob et al, Clinical Nuclear Medicine, 29:161, 2004). 5. Mild increased FDG uptake noted in the left posterior hemipelvis localized to the subcutaneous fat does not fulfill quantitative criteria for viable neoplasm. 6. The prior defined left lower hemithorax pulmonary parenchymal hypermetabolic focus demonstrates metabolic resolution on the current examination. 7. Overall, compared to the prior FDG PET study dated 06/01/17, there is apparent interim development of defined viable neoplastic disease within the context of the mediastinum and bilateral thoracic perihilum, left hemithorax pleural interface and osseous skeletal structures. There is interval resolution of the prior defined left lower lung field hypermetabolic abnormality. Electronic Signature Lauro Lopez D.O. Electronically Signed: Lauro Lopez DO at 22:31 EST Tel , Service support , Assessment and Plan 66-year-old male with: 1. Non-small cell lung cancer, adenocarcinoma histology, left lower lobe. Patient is status post left lower lobectomy and lymph node dissection at [facility] July 03, 2017 with R0 resection. Pathologic stage IIB(T2b, N1, M0). Received adjuvant chemotherapy with carboplatin Alimta for 4 cycles October-December 2017 (as per patient request of delay) on surveillance reports increasing dyspnea and CT scan June 18, followed by a PET/CT June 28, 2018 findings are consistent with recurrent disease in the mediastinal lymph nodes and malignant pleural effusion. There is also evidence for bony metastatic disease in the pelvis (either from lung or high risk prostate) He is scheduled for a diagnostic and therapeutic thoracocentesis July 02, 2018 and will follow up in 1 week when pathology is available. Request PDL 1 on cytology to guide future therapy. 2. A very high risk prostate cancer status post radical prostatectomy followed by adjuvant radiation therapy in 2015 and has been on ADT since 2016 due to PSA relapse. Disease seems to be in remission on therapy at this time with PSA stable less than 03 May 2018. Care has been under his urologist and will continue to watch concurrently. 3- Pulmonary embolism and bilateral lower extremities DVT, unprovoked 10/02/2017. This raises concern for a possible underlying malignancy induced hypercoagulability and therefore advice systemic anticoagulation for at least one year probably long-term. 4-Anemia, probably multifactorial, no evidence for deficiencies of iron or B12 . 5-dyspnea on any exertion and desaturation walking indoors flat level, now on oxygen therapy without notable improvement in exercise tolerance subjectively. Will reassess after thoracocentesis Comorbid condition COPD, residual left lower extremity weakness from a remote attack with multiple sclerosis. Prostate cancer in remission on LHRH therapy. Patient was seen was his , impression and plan discussed. Medications: Prescriptions This Visit Medication Instructions Recorded Bisprolol Fumarate 10 mg PO DAILY 11/03/17 Primary Care Provider: Fernando Mock MD Referring Provider: 07/01/18 1233 <Electronically signed by Dago Leger MD> Date Dago Leger MD Cosigner Signature: Date (if applicable) CC: Tavon Mullen MD; Fernando Mock DO PET/CT TUMOR BASE Observed: 06/28/2018 Status: F Source: [place] -THIGH SUBS 9:34 AM [facility] [place] REPOSITORY [facility] Imaging Services [address] [place] [address] PET/CT Tumor Base -Thigh Subs MR#: [id number] Acct: [id number] Name: SHAILA STOLL Rep #: [id number] : 1950 M 67 From: Lauro Lopez DO PCP: Fernando Mock DO Status: REG RCR Study: PET/CT Tumor Base -Thigh Subs Date of Exam: 06/28/18 Exam# [id number] Ordering Dr: Dago Leger MD EXAMINATION: FDG PET/CT INDICATIONS: A 67-year-old male with reported history of carcinoma of the lung presenting for restaging examination. COMPARISON EXAMINATION: CT of the chest, abdomen and pelvis reports dated 06/18/18, previous FDG PET study dated 06/01/17 INDEX LESION SIZE SUV INTERPRETATION NEW: pre, subcarinal mediastinum, bilateral thoracic perihilum 35.3 x 56.0-mm (largest) (frame 206) 4.4 (max) Fulfills quantitative criteria for viable neoplasm NEW: left mid-lower posterior hemithorax 3.2 (max) Fulfills quantitative criteria for viable neoplasm NEW: axial skeletal structures 4.5 (max) Fulfills quantitative criteria for viable neoplasm PREVIOUS: left lower hemithorax pulmonary parenchyma, left lower lobe Demonstrates metabolic resolution on the current examination NON-INDEX LESION SIZE SUV INTERPRETATION Left posterior pelvis subcutaneous fat 1.7 Quantitative criteria for viable neoplasm are not fulfilled TECHNIQUE: Following the intravenous administration of 15.0 mCi of F-18 deoxyglucose via the left antecubital fossa, multiplanar image acquisitions of the neck, chest, abdomen and pelvis to level of mid thigh, obtained at one hour post radiopharmaceutical administration contemporaneously interpreted with the current CT of the neck, chest, abdomen and pelvis to level of mid thigh, dated 06/28/[address] of the chest, abdomen and pelvis reports dated 06/18/18, previous FDG PET study dated 06/01/17 reveal: SERUM GLUCOSE LEVEL: 122 mg/dl. HEIGHT: 70 inches. WEIGHT: 195 lbs. FINDINGS: 1. Newly identified increased glucose metabolism is manifest in the pre, subcarinal mediastinum and bilateral thoracic perihilum, generating a calculated maximal standard uptake value of 4.4. The maximal axial diameter of the largest individual metabolic, morphologic abnormality on review of CT of the chest dated 06/28/18 is 35.3-mm (transverse) x 56.0-mm (AP). 2. Enhanced radiopharmaceutical concentration is defined in the left mid-lower posterior hemithorax at the pleural interface, generating a calculated maximal standard uptake value of 3.2. 3. An increase in FDG uptake is manifest in the left posterior ilium and several bilateral ribs with a calculated maximal standard uptake value of 4.4. 4. Normal physiologic distribution of the radiopharmaceutical is apparent in the hepatic (2.9/2.0) and splenic parenchyma, both renal units, bladder and visualized intestinal tract. The visualized portion of the cerebral cortex demonstrate symmetric and preserved glucose metabolism. Diffuse radiopharmaceutical concentration is noted in all four quadrants of the abdomen and pelvis. Mild increased glucose concentration is defined in the left posterior hemipelvis localized to the subcutaneous fat generating a calculated maximal standard uptake value of 1.7. Quantitative criteria for viable neoplasm are not fulfilled. The previously identified left lower lung hypermetabolic abnormality is not apparent on the current examination. Pertinent CT findings are as follows: CHEST: Loculated pleural effusions demonstrate mild non-quantitatively significant increased glucose metabolism. There is atherosclerotic calcification defined in the thoracic aorta without evidence of dilatation-aneurysm formation. Bilateral axillary soft tissue densities with fatty hilus formation are non-glucose avid. ABDOMEN AND PELVIS: There is atherosclerotic calcification defined in the abdominal aorta without evidence of dilatation-aneurysm formation. Pelvic arterial calcification is observed. Right-left fat containing inguinal hernias are noted. SKELETAL: Degenerative changes are noted in the cervical, thoracic and lumbar spine. Diffuse demineralization is demonstrated throughout the axial skeletal structures. PET/PET/CT Tumor Base -Thigh Subs IMPRESSION: 1. ABNORMAL EXAMINATION INDICATIVE OF MALIGNANT VIABLE NEOPLASM. 2. Increased glucose concentration observed in the mediastinum and bilateral thoracic perihilum fulfills quantitative criteria for viable neoplasm. ([place] et al, Journal of Clinical Oncology 16:2142, 1998). 3. Facilitated fluorine labeled glucose metabolism noted in the left mid to lower posterior hemithorax at the pleural interface fulfills quantitative criteria for viable pleural neoplasm. (Durham, et al, Chest 122:1918, 2002). 4. Viable osseous neoplasm appears evident in the left posterior ilium and bilateral posterior ribs. (Bob et al, Clinical Nuclear Medicine, 29:161, 2004). 5. Mild increased FDG uptake noted in the left posterior hemipelvis localized to the subcutaneous fat does not fulfill quantitative criteria for viable neoplasm. 6. The prior defined left lower hemithorax pulmonary parenchymal hypermetabolic focus demonstrates metabolic resolution on the current examination. 7. Overall, compared to the prior FDG PET study dated 06/01/17, there is apparent interim development of defined viable neoplastic disease within the context of the mediastinum and bilateral thoracic perihilum, left hemithorax pleural interface and osseous skeletal structures. There is interval resolution of the prior defined left lower lung field hypermetabolic abnormality. Electronic Signature Lauro Lopez D.O. Electronically Signed: Lauro Lopez DO at 22:31 EST Tel , Service support , CC: Fernando Mock DO; Dago Leger MD Flash Ranging Crewmember: Signed 6 MINUTE WALK TEST Observed: 06/22/2018 Status: F Source: [place] 8:41 AM [facility] [place] REPOSITORY [facility] Pulmonary Services/Neurology [facility] [place] [address] [place] [address] MR#: [id number] Acct: [id number] Name: SHAILA STOLL Rep #: [id number] : 1950 67 From: David Mock DO Referring Dr: Miguelina Saenz SALES RESEARCH ANALYST Date: Ordering Dr: Sex: M C Location: PSN PSN 6 Minute Walk Test - 6 Minute Walk Test 6 Minute Walk Test: 6 Minute Walk Test PSN:6-Minute Walk Test Start: 06/21/18 16:36 Freq: Status: Active Protocol: [id number] Document 06/21/18 16:15 [facility] (Rec: 06/21/18 16:46 [facility] [id number]) 6 Minute Walk Test Date Performed 06/21/18 Time Performed 16:15 Height 5 ft 10 in Weight: 197 lb Weight in Pounds 197.[address]: Miguelina Saenz Assistive device used: None Pre-test Oxygen Delivery Method Room Air Pulse Ox (%) 97 Pulse Rate (60-100 beats/min) 92 Dyspnea Nahed Scale (0-10) 3 Exertion Nahed Scale (6-20) 6 1st minute Oxygen Delivery Method Room Air Pulse Ox (%) 92 Pulse Rate (60-100 beats/min) 93 Number of Rests Taken 0 2nd minute Oxygen Delivery Method Room Air Pulse Ox (%) 90 Pulse Rate (60-100 beats/min) 100 Number of Rests Taken 0 3rd minute Oxygen Delivery Method Room Air Pulse Ox (%) 91 Pulse Rate (60-100 beats/min) 103 H Number of Rests Taken 0 4th minute Oxygen Delivery Method Room Air Pulse Ox (%) 92 Pulse Rate (60-100 beats/min) 105 H Number of Rests Taken 0 5th minute Oxygen Delivery Method Room Air Pulse Ox (%) 85 Pulse Rate (60-100 beats/min) 109 H Number of Rests Taken 0 Reported Symptoms Increased Work of Breathing 6th minute Oxygen Flow Rate (L/min) (L/min) 2 Oxygen Delivery Method Nasal Cannula Pulse Ox (%) 98 Pulse Rate (60-100 beats/min) 98 Number of Rests Taken 0 Post-test Oxygen Flow Rate (L/min) (L/min) 2 Oxygen Delivery Method Nasal Cannula Pulse Ox (%) 99 Pulse Rate (60-100 beats/min) 90 Dyspnea Nahed Scale (0-10) 5 Exertion Nahed Scale (6-20) 13 Number of Rests Taken 0 Full Laps Walked 13 Partial Lap, Number of Tiles Walked 15 Total Distance Walked (ft) 782 06/21/18 16:15 (created 06/21/18 16:44) Cardiopulmonary Services by Shanta Michel Pt sent over from office per Danielle request for 6 minute walk. Pt tolerated walk well. States he is normally short of breath all of the time nowadays. Pt noticeably short of breath at rest and during walk. At 5 minutes pt SpO2 85% on room air and placed on 2l for remainder of walk. Danielle called and notified. Will fax order and face to face to Radhames. Radhames called and notified of new start for home O2 and per Jessica someone will be over very soon to set pt up for home. Initialized on 06/21/18 16:44 - END OF NOTE - Interpretation Interpretation: The patient ambulated 782 feet over the course of 6 minutes beginning on room air without assistive devices or breaks. Pretesting oxygen saturation was noted to be 97% on room air. With ambulation, the ramiro oxygen saturation occurred at minute 5 of testing and was 85%. The patient was placed on 2 L/min of supplemental oxygen and was able to complete the remainder of the test while maintaining oxygen saturations at or above 88%. This testing indicates a pulmonary limitation to exercise tolerance. - Recommendations Recommendations: 2 L/min of supplemental oxygen should be utilized with exertion. 06/22/18840 <Electronically signed by David Mock DO> Date David Mock DO CC: Date Dictated: 06/22/18838 Date Transcribed: 06/22/18838 Flash Ranging Crewmember: David Mock DO Signed PULMONARY VISIT REPORT Observed: 06/21/2018 Status: F Source: [place] 4:32 PM [facility] [place] REPOSITORY [facility] [address] [place] [address] OFFICE VISIT Date of Service: 06/21/18 MR#: [id number] Acct: [id number] Name: SHAILA STOLL Rep #: [id number] : 1950 Provider: Miguelina Saenz Age/Sex: 67/M [place] [facility] [place] Status: Signed Assessment AND Plan 1. SOB (shortness of breath) R06.02 Plan Deteriorated. Possibly related to pleural effusion identified on CT of the chest. Sending for a walking oximetry to evaluate for possible exertional hypoxia, will be set up with oxygen if indicated. Ordering a thoracentesis, both diagnostic and therapeutic. Sending fluids to help determine the cause of pleural effusion. Discussed with the patient and his that there is concern for malignancy. Follow-up with Dr. Mullen in 1 month, at which time the thoracentesis will be complete and test results from the pleural fluid will have returned. The patient is on aspirin and Lovenox, each need to be held prior to the procedure. Personally reviewed CT scan and reviewed with Dr. Mullen today. Discussed the case with Dr. Mullen. 2. Pleural effusion J90 Plan New. Need to evaluate for exudative versus transudative, to help identify source. Plan for thoracentesis and fluid studies. Orders Orders: 3. Other acute pulmonary embolism with acute cor pulmonale I26.09 Plan Complicates exam, plan, care and prognosis. Anticoagulation will be held for thoracentesis. If thoracentesis fluid analysis is unhelpful, may need to send the patient for a VQ scan to evaluate for continued/chronic thromboembolism. Follow-up with Dr. Mullen in 1 month to discuss test results and to continue to develop a plan. Plan Detail Other Orders Orders: Follow Up 1 Month (BWA) HPI LOW SATURATIONS: Chief Complaint: Shortness of breath HPI Comments Details: This is a 67 year old M, currently under the care of Fernando Mock DO, here today to review test results. He is ambulatory and currently on room air. He is cooperative by his . The patient continues to experience shortness of breath as discussed at his last office visit with Dr. Mullen. He is exerting very easily. He reports persistent fatigue. He was seen earlier today in the oncology department/office and was noted to have oxygen saturations less than 89% while ambulating. He reports a nonproductive cough. He is having a poor appetite. He denies any chest pain or palpitations, also denies any wheezing or chest tightness. He has not experienced any fever, chills or body aches but reports that approximately 9 PM every night he gets flushed. He has not tried any [id number] medications for his symptoms. He is not currently on any inhalers. I personally reviewed the tests/images/tracings which showed: Complete Pulmonary Function test were preformed on June 10, 2018, and showed FVC of 70 % of predicted, FEV1 of 55 % of predicted, FEV1/FVC ratio of 59 %, TLC of 78 % of predicted, RV of 63 % of predicted, DLCO 42% of predicted. The test was interpreted to be consistent with an irreversible moderately severe mixed ventilatory defect, with no significant response to bronchodilators and a symmetric reduction in diffusing capacity. Echocardiogram completed on June 18, 2018 shows an EF of 60% with stage II diastolic dysfunction and pulmonary artery systolic pressure estimated to be 45 mmHg. I personally reviewed a chest CT scan, that was completed on June 18, 2018, that showed worsening subcarinal and right hilar adenopathy suspicious for worsening metastasis. New loculated left pleural effusion should be considered malignant until proven otherwise. Stable right axillary and AP window lymphadenopathy. Chronic interstitial changes in both lung parrish with superimposed interstitial edema. Intake Vital Signs06/21/18 Body Mass Index (BMI) 28.2 06/21/18 Height 5 ft 10 in 06/21/18 Weight: 194 lb Intake Visit Reasons: LOW SATURATIONS Accompanied by: Allergies morphine Adverse Reaction (Intermediate, Verified 06/21/18 14:58) MAKES HIS NAUSEATED AND SICK Medications Lupron Depot 150 mg IM UD 10/02/17 [History Confirmed 06/21/18] Bisprolol Fumarate 10 mg PO DAILY 11/03/17 [History Confirmed 06/21/18] Handicap Placard #1 ea 02/18/18 [Rx Confirmed 06/21/18] Aspirin [Aspirin, Baby] 81 mg PO DAILY@0800 #30 tab.chew 04/01/18 [Rx Confirmed 06/21/18] enoxaparin 150 mg/mL subcutaneous syringe 150 mg SC DAILY #30 ml 04/28/18 [Rx Confirmed 06/21/18] [facility] Medical History Viral pharyngitis (Acute) Nasopharyngitis (Acute) Limb weakness (Acute) unusual tierdness (Acute) Sinusitis (Acute) SOB (shortness of breath) (Acute) Dyspnea (Acute) Adenocarcinoma of lung (Chronic) Hyperlipidemia (Chronic) Hypertension (Chronic) 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) LYMPH NODE REMOVAL-CHEST (Acute) BLOOD CLOT LUNGS (Acute) Deep vein blood clot of left lower extremity (Acute) Deep vein blood clot of right lower extremity (Acute) Surgical History History of prostatectomy (Acute) Family History Father Prostate cancer Liver cancer Liver disease Mother Bone cancer Social History Smoking Status: Never smoker how long ago did patient quit smokin, 2 pk/day second hand exposure: Yes alcohol intake: never substance use type: does not use caffeine: Yes what type of physical activity do you participate in: none frequency: does not exercise seatbelt use: always Review of Systems Const CONSTITUTIONAL: Positive fatigue; negative anorexia, body ache, chills, daytime sleepiness, fever(s), night sweats, oral thrush, stops breathing during sleep, weight loss, sleeping in chair, weight loss, weight gain, frequent colds, seasonal allergies, other, headache(s) or orthopnea EETM Ear Nose Throat Mouth: Positive hearing normal; negative hoarseness, dry mouth in morning, change in vision, itchy eyes, eye pain, swallowing Difficulty, ear pain, headache(s), mouth pain, nasal congestion, nasal discharge, sinus pain, sinus pressure, sore throat, other, hard of hearing, nose bleed or post nasal drip Cardio Cardiovascular: Negative chest pain, chest pain at rest, chest pain with activity, irregular heart rhythm, edema, shortness of breath when lying down, palpitations, other or murmur Resp Respiratory: Positive as per HPI, shortness of breath shortness of breath: Positive with activity and worsening and cough cough: Positive productive color: Positive thick and clear; negative pain with cough, wheezing, chest congestion, chest tightness, pain on inspiration, inhalers, increase use of rescue inhalers, snoring, apnea or other Genitourinary: Negative blood in urine, nocturia, pain with urination or other Musc Musculoskeletal: Negative body pain, back pain, neck pain or other Skin/Breast Skin/Breast: Negative dry skin, itching, unusual bruising, breast lump, other or rash Neuro Neurological: Negative restless legs, confusion, weakness or other Psych Psychocological: Negative abnormal sleep pattern, anxiety, thoughts of hurting self/others, hopelessness or other Lymph Lymphatic: Negative easy bleeding, easy bruising, other or swollen lymph nodes Exam Const Constitutional: Positive conversant, cooperative, in no acute respiratory distress, well developed, well nourished, good hygiene and dyspenic Head Head: Positive normocephalic and atraumatic; negative cyanosis of lips/distal nose Eyes Eye: Positive clear conjunctiva; negative nystagmus or scleral abnormality Ears Ear: Positive hearing normal and external ears normal; negative hard of hearing Nose Nose: Positive external nose normal and no nasal discharge; negative epistaxis Mouth Mouth: Positive oral mucosae normal, no lesions, dentures and posterior oropharynx is adequate; negative post nasal drip, malodorous breath or oral thrush present Mallampati Score: I: Mallampati Score Neck Neck: Positive normal visual inspection, full ROM and trachea midline; negative lymphadenopathy, JVD or tender Chest Wall Chest: Positive normal inspection of the chest and symmetric chest movement; negative increased A/P diameter Resp lung sounds: Positive diminished, dullness to percussion dullness: Yes left, normal expiratory time, clear to auscultation and increased work of breathing; negative wheezes, rhonchi, rales, wheeze present on forced exhalation or use of accessory muscles Cardio Cardiac: Positive regular rate, regular rhythm, S1 normal and S2 normal; negative murmur GI GI: Positive normal to inspection; negative distended Genitourinary: Positive deferred Musc Musculoskeletal: Positive steady gait and ROM normal; negative kyphosis or scoliosis Skin Pulmonary Skin Exam: Positive intact; negative rash Pulses Pulse: Yes pulses normal x4 extremities Extremities Extremities: Yes capillary refill normal, No clubbing, No cyanosis, No edema Neuro Neurologic: Yes conversant, Yes no focal neuro deficits, Yes normal concentration, Yes understands questions, Yes cooperative, Yes normal cognition, Yes normal coordination, No tremor Lymph Lymphatic: No lymphadenopathy, No tenderness, No cervical adenopathy Psych Appearance: Positive grossly normal, eye contact and well kempt Mental Status: Positive mental status grossly normal Mood: Positive congruent mood Affect: Positive normal affect Coding Level of Care Code Off vis,est,level 4 Diagnoses SOB (shortness of breath) R06.02 Pleural effusion J90 Other acute pulmonary embolism with acute cor pulmonale I26.09 Pulmonary embolism type: other Chronicity: acute Acute cor pulmonale presence: with acute cor pulmonale 06/21/18 1632 <Electronically signed by Miguelina VALLES> Date Miguelina VALLES Cosigner Signature: Date (if applicable) CC: Fernando Mock DO ONCOLOGY VISIT REPORT Observed: 06/21/2018 Status: F Source: [place] 11:27 AM [facility] [place] REPOSITORY [facility] [address] [place] [address] OFFICE VISIT Date of Service: 06/21/1859 MR#: [id number] Acct: [id number] Name: SHAILA STOLL Davi Rep #: [id number] : 1950 From: Dago Leger MD Age/Sex: 67/M Location: [facility] Status: Signed - Problem List (1) Cancer of lower lobe of left lung Status: Chronic (2) Regional lymph node metastasis present Status: Chronic (3) Prostate cancer Status: Chronic Comment: surgery , R.T. 2015 PSA relapse 2016 ADT (4) Anemia Status: Chronic Qualifiers: (5) Pulmonary embolism Status: Suspected Qualifiers: Pulmonary embolism type: other Chronicity: acute Acute cor pulmonale presence: with acute cor pulmonale Qualified Code(s): I26.09 - Other pulmonary embolism with acute cor pulmonale - Date of Service Date of Service:: 06/21/18 - Chief Complaint Lung cancer follow-up - History of Present Illness Patient is a 66-year-old gentleman smoker who quit over 20 years ago after a 30+ pack year smoking who presented with a months history of increasing dyspnea on exertion and wheezing. Chest x-ray followed by a CT scan of the chest revealed a left lower lobe mass. Bronchoscopy by Dr. Mullen on 05/19/2017 showed a left lower lobe endobronchial lesion and biopsy confirmed an adenocarcinoma. Staging PET/CT IMPRESSION: 1. ABNORMAL EXAMINATION INDICATIVE OF MALIGNANT VIABLE NEOPLASM. 2. Increased glucose concentration heterogeneously defined in the left mid-lower posteromedial, posterior hemithorax, left lower lobe, fulfills quantitative criteria for viable neoplasm. 3. The increase in glucose concentration observed in the bilateral thoracic perihilum does not fulfill strict quantitative criteria for viable neoplasm with single point technique. 4. Asymmetric increased glucose concentration noted in the left hemipelvis contiguous to the subcutaneous fat may be further investigated with Brain MRI showed no evidence of metastatic disease. Pulmonary function tests are satisfactory for surgical resection. His past medical history is notable for prostate cancer presenting with an elevated PSA of 42. Patient is status post radical prostatectomy in October 2014 for a Keatchie score 9 adenocarcinoma involving about 80% of the prostate with extra prostatic extension extensive positive margins and lymphovascular invasion as well as tory-neural invasion. Following his surgery patient underwent adjuvant radiation therapy concluded in 2014. At the completion of his treatment his PSA was less than 0.1 however by 2016 PSA relapse prompted initiation of ADT by his urologist which he continues to date with the most recent PSA of less than 0.1. His past medical history is also notable for multiple sclerosis with residual left lower extremity weakness but no recent flares. Treatment: On July 03, 2017 he underwent left lower lobe sleeve lobectomy at [facility] by Dr. Alfonso. Final pathology revealed a 6.5 cm single focus adenocarcinoma G2 negative margins no visceral pleural invasion no lymphovascular invasion and metastatic cancer was found in 1 lymph node position 11 mL (N1) of 16 N1 nodes dissected and non- and 8 N2 nodes dissected. Adjuvant Carbo-Alimta 10/13/2017-12/15/2017 (4 cycles) Delay as per patient request (insurance change) - Interval History No change please see June 15, 2018 - Past Medical/Social History Past Medical History Past Medical History: Hyperlipidemia,Hypertension Other Past Medical History: MS Cancer: Lung cancer,Prostate cancer Past Surgical History Surgical: Prostatectomy Family History Paternal Past Medical History: Liver disease Paternal History of Cancer Liver cancer,Prostate cancer Maternal Past Medical History: Unknown Maternal History of Cancer: Bone cancer Social History Social History: No changes Smoking Status Former smoker Review of Systems Comment: Unchanged, please see June 15, 2018 Vital Signs Height 5 ft 10 in Weight: 89.811 kg Weight in Pounds 198.0 lbs Pulse Ox 97 - Physical Exam General: Alert, Oriented x3, No apparent distress, - - ECOG 1-2 Oxygen saturation in 90s at rest dropping to 89% walking the hallway Laboratory Data: Recent labs June 2018 reviewed in EMR Diagnostic Data: CT scan of the chest abdomen and pelvis June 18 2018 I personally reviewed these images and concur with reported findings: IMPRESSION: Worsening subcarinal, and right hilar adenopathy suspicious for worsening metastasis. New loculated left pleural effusions also should be considered malignant until present otherwise. Stable right axillary and AP window lymphadenopathy Chronic interstitial changes in both lung parrish with superimposed interstitial edema Assessment and Plan 66-year-old male with: 1. Non-small cell lung cancer, adenocarcinoma histology, left lower lobe. Patient is status post left lower lobectomy and lymph node dissection at [facility] July 03, 2017 with R0 resection. Pathologic stage IIB(T2b, N1, M0). Received adjuvant chemotherapy with carboplatin Alimta for 4 cycles October-December 2017 (as per patient request of delay) on surveillance reports increasing dyspnea and CT scan June 18, 2018 is concerning for recurrent disease in the mediastinal lymph nodes and possible malignant pleural effusion. Plan is to obtain a PET/CT for further characterization of these findings and guide further biopsy (EBUS or pleural fluid tap) 2. A very high risk prostate cancer status post radical prostatectomy followed by adjuvant radiation therapy in 2014 and has been on ADT since 2016 due to PSA relapse. Disease seems to be in remission on therapy at this time with PSA stable less than 03 May 2018. Care has been under his urologist and will continue to watch concurrently. 3- Pulmonary embolism and bilateral lower extremities DVT, unprovoked 10/02/2017. This raises concern for a possible underlying malignancy induced hypercoagulability and therefore advice systemic anticoagulation for at least one year probably long-term. 4-Anemia, probably multifactorial, no evidence for deficiencies of iron or B12 . 5-dyspnea on any exertion and desaturation walking indoors flat level, follow with Dr. Mullen for possible oxygen therapy. Comorbid condition COPD, residual left lower extremity weakness from a remote attack with multiple sclerosis. Prostate cancer in remission on LHRH therapy. Patient was seen was his , impression and recommendations discussed Medications: Prescriptions This Visit Medication Instructions Recorded Bisprolol Fumarate 10 mg PO DAILY 11/03/17 Primary Care Provider: Fernando Mock MD Referring Provider: 06/21/18 1127 <Electronically signed by Dago Leger MD> Date Dago Leger MD Cosigner Signature: Date (if applicable) CC: Tavon Mullen MD; Fernando Mock DO ECHO, COMPLETE W/ Observed: 06/18/2018 Status: F Source: [place] CONTRAST 10:10 PM [facility] REPOSITORY [facility] Cardiovascular Services [address] [place] [address] Echo Complete W/ Contrast 06/18/18 0856 MR#: [id number] Acct: [id number] Name: SHAILA STOLL Rep #: [id number] : 1950 67 From: Rory Wall MD Attending Dr: Tavon Mullen MD Status: REG CLI Ordering Dr: Tavon Mullen MD Date: 06/18/18 Location: [facility] Sex: M C Admitted: Version 2 Reason For Study: DYSPNEA Procedure This was a 2D Doppler, Color Flow transthoracic echocardiogram. Myocardial strain analysis was performed in this exam to aid in the assessment of cardiac function. Strain analysis performed with suboptimal imaging. Contrast injection was performed. The study was technically difficult. Exam performed in department. Left Ventricle Normal LV size. Left ventricular systolic function is normal. The estimated ejection fraction is 60 %. Stage 2 diastolic dysfunction. No regional wall motion abnormalities noted. Right Ventricle Normal RV size. Normal systolic function. Atria Normal left atrium. Normal right atrium. Mitral Valve Normal mitral valve. Mild (1+) eccentric mitral valve insufficiency. Tricuspid Valve Normal tricuspid valve. Mild (1+) tricuspid valve insufficiency. Pulmonary artery systolic pressure is 45 mmHg. Aortic Valve Trisinus/trileaflet aortic valve. Mild focal aortic valve calcification. Pulmonic Valve Normal pulmonic valve. Great Vessels Normal aortic root. The pulmonary artery is normal size. Normal inferior vena cava. Pericardium/Pleural No pericardial effusion. Medication 20 gauge I.V. with prn adaptor inserted into right arm. Diluted definity 3ml given slow IV push to enhance endocardial definition. Previously negative bubble study. MMode/2D Measurements AND Calculations RVDd: 3.8 cm Ao root diam: 3.0 cm LAV(MOD-bp): 55.8 ml LAV(MOD-bp) Indexed: 26.8 ml/m2 LAV(MOD-sp2): 51.3 ml LAV(MOD-sp4): 57.2 ml SV(MOD-sp4): 64.2 ml SV(sp4-el): 69.7 ml LVAd ap4: 31.6 cm2 EDV(MOD-sp4): 99.5 ml EDV(sp4-el): 106.6 ml LVAs ap4: 16.1 cm2 ESV(MOD-sp4): 35.3 ml ESV(sp4-el): 36.9 ml EF(MOD-sp4): 64.5 % EF(sp4-el): 65.4 % LA dimension(2D): 4.4 cm LA A4 area: 18.9 cm2 RA A4 area: 11.8 cm2 Time Measurements MV dec time: 0.24 sec Doppler Measurements AND Calculations MV E max rabia: 80.1 cm/sec Lat Peak E' Rabia: 10.2 cm/sec Med Peak E' Rabia: 5.7 cm/sec MV A max rabia: 49.9 cm/sec E/E' lat: 7.9 E/E' med: 14.1 MV E/A: 1.6 Ao V2 max: 138.5 cm/sec LV V1 max: 138.7 cm/sec PA V2 max: 80.7 cm/sec Ao max P.7 mmHg LV V1 max P.7 mmHg TR max rabia: 312.8 cm/sec TR max P.0 mmHg Interpretation Summary Normal LV size. Left ventricular systolic function is normal. The estimated ejection fraction is 60 %. Stage 2 diastolic dysfunction. Mild (1+) eccentric mitral valve insufficiency. Mild (1+) tricuspid valve insufficiency. Contrast injection was performed. The global longitudinal strain = -17.6% (abnormal). Ordering Physician: Tavon Mullen Referring Physician: KATLYN MULLINS Performed By: Tere Jarrett, MARY, RVT 06/18/182209 Date Rory Wall MD CC: Tavon Mullen MD; Katlyn Mullins DO Date Dictated: 06/18/18855 Date Transcribed: 06/18/182202 Flash Ranging Crewmember: Signed ABDOMEN/PELVIS WITH Observed: 06/18/2018 Status: F Source: [place] CONTR[place] 9:47 AM [facility] [place] REPOSITORY [facility] Imaging Services [address] [place] [address] Abdomen/Pelvis WITH Contrast MR#: [id number] Acct: [id number] Name: JERMANSHAILA Davi Rep #: [id number] : 1950 M 67 From: Cruzito Paz MD PCP: Katlyn Mullins DO Status: REG CLI Study: Abdomen/Pelvis WITH Contrast Date of Exam: 06/18/18 Exam# [id number] Ordering Dr: Dago Leger MD STUDY: CT ABDOMEN AND PELVIS WITH CONTRAST REASON FOR EXAM: Male, 67 years old. Removal of the left lower lobe, prostate cancer, history of prostatectomy RADIATION DOSAGE (If Supplied By Facility): CTDIvol = ( 16.82 ) mGy, DLP = ( 1766.50 ) mGycm TECHNIQUE: Transaxial images were obtained from the dome of the diaphragm to the symphysis pubis without oral contrast. 100ML ml of Isovue 300 contrast was administered. Sagittal and coronal images were reconstructed. Individualized dose optimization techniques were used for this CT. COMPARISON: 03/09/2018 FINDINGS: Lung bases show chronic interstitial changes with loculated effusions in the left lung base which could be malignant. Dependent atelectasis noted in the right lung base. The visualized portions of the heart are within normal limits. There is decreased attenuation of the liver consistent with steatosis. Normal gallbladder and extrahepatic biliary system. Normal spleen. Normal pancreas. Normal bilateral adrenal glands. No obstructive uropathy, simple cysts in both kidneys. Normal visualized stomach. Normal small intestine. There are a few scattered colonic diverticula. There is nonspecific; also thickening of the sigmoid colon suggesting a colitis. There is no perforation, abscess, or significant pericolonic inflammation. The appendix is visualized and appears normal. Appendix best seen on coronal recon image 65. There is diffuse atherosclerotic calcification of the abdominal aorta, without a demonstrated aneurysm. Normal inferior vena cava. Normal retroperitoneum. Normal urinary bladder. Normal abdominal wall. There are diffuse degenerative changes of the visualized lumbar spine, and pelvis. CT/Abdomen/Pelvis WITH Contrast IMPRESSION: Scattered colonic diverticulosis. Submucosal thickening of the sigmoid colon suggests a colitis. No perforation or abscess Simple renal cysts Chronic interstitial changes in both lung parrish with loculated left pleural effusions and dependent atelectasis in the right lung base the effusions should be considered malignant until proven otherwise. Degenerative bony changes Electronically Signed: Collin Pza MD at 10:47 EST , Service support , CC: Dago Leger MD; Katlyn Mullins DO Flash Ranging Crewmember: Signed CHEST WITH CONTRAST Observed: 06/18/2018 Status: F Source: [place] 9:47 AM [facility] [place] REPOSITORY [facility] Imaging Services [facility] [place] [address] [address] Chest WITH Contrast MR#: [id number] Acct: [id number] Name: SHAILA STOLL Rep #: [id number] : 1950 67 From: Cruzito Paz MD PCP: Katlyn Mullins DO Status: REG CLI Study: Chest WITH Contrast Date of Exam: 06/18/18 Exam# [id number] Ordering Dr: Dago Leger MD STUDY: CT CHEST WITH CONTRAST REASON FOR EXAM: Male, 67 years old. Lung and prostate cancer RADIATION DOSAGE (If Supplied By Facility): CTDIvol = ( ) mGy, DLP = ( ) mGycm TECHNIQUE: Transaxial imaging was performed following intravenous administration of 100ML ml of Isovue 300 contrast material. Individualized dose optimization techniques were used for this CT. COMPARISON: 03/22/2018 FINDINGS: Soft tissue windows show normal-appearing thyroid gland. Stable right axillary adenopathy with induration of the axillary fat. Stable borderline enlarged AP window lymph nodes. New since the previous study however are loculated left pleural effusions in the upper and lower aspects of the left hemithorax which should be considered malignant until proven otherwise. There is also increased size of subcarinal lymph nodes, and soft tissues in the right hilum which are narrowing the right mainstem bronchus when compared to the previous study. Findings suggest worsening adenopathy, likely metastatic along with likely malignant effusions. There are calcified coronary vessels. Lung windows show chronic interstitial changes with a noncalcified 5 mm nodule in the right lower lobe. There is interstitial edema in both lung parrish. Limited cuts through the upper abdomen show fatty infiltration of the liver and simple left renal cyst. Bony structures show degenerative changes without lytic or blastic bony lesion. CT/Chest WITH Contrast IMPRESSION: Worsening subcarinal, and right hilar adenopathy suspicious for worsening metastasis. New loculated left pleural effusions also should be considered malignant until present otherwise. Stable right axillary and AP window lymphadenopathy Chronic interstitial changes in both lung parrish with superimposed interstitial edema Electronically Signed: Collin Paz MD at 10:56 EST , Service support , CC: Dago Leger MD; Katlyn Mullins DO Flash Ranging Crewmember: Signed IRON+IRON BINDING Collected: 06/15/2018 Status: F Source: [place] 11:43 AM [facility] [place] REPOSITORY Order Comment: Reason for Laboratory Test . TYPE CODE TESTS RESULT OUT OF RANGE REFERENCE UNITS LAB L503.6075 250-450 ug/dL TIBC Normal 256 LAB L503.6150 65-175 ug/dL Low IRON 38 LAB L503.6250 15.0-55.0 % Low IRON SATURATION 14.8 Performed By: #### L503.6030, L503.6550 #### [facility] [address] [place], [address] FERRITIN Collected: 06/15/2018 Status: F Source: [place] 11:43 AM [facility] [place] REPOSITORY Order Comment: Reason for Laboratory Test . TYPE CODE TESTS RESULT OUT OF REFERENCE UNITS RANGE LAB L503.6550 26-388 ng/mL High FERRITIN 503 Performed By: #### L503.6030, L503.6550 #### [facility] [address] [place], [address] VITAMIN B12 Collected: 06/15/2018 Status: F Source: [place] 11:43 AM [facility] [place] REPOSITORY Order Comment: Reason for Laboratory Test . TYPE CODE TESTS RESULT OUT OF REFERENCE UNITS RANGE LAB L503.0105 211-911 pg/mL High Vitamin B12 > 2000 Performed By: #### L503.0105 #### [facility] [address] [place], [address] ONCOLOGY VISIT REPORT Observed: 06/15/2018 Status: F Source: [place] 11:35 AM [facility] [place] REPOSITORY [facility] [address] [place] [address] OFFICE VISIT Date of Service: 06/15/18 1103 MR#: [id number] Acct: [id number] Name: SHAILA STOLL Rep #: [id number] : 1950 From: Dago Leger MD Age/Sex: 67/M Location: OMD Status: Signed - Problem List (1) Cancer of lower lobe of left lung Status: Chronic (2) Regional lymph node metastasis present Status: Chronic (3) Prostate cancer Status: Chronic Comment: surgery , R.T. 2015 PSA relapse 2016 ADT (4) Anemia Status: Chronic Qualifiers: (5) Pulmonary embolism Status: Suspected Qualifiers: Pulmonary embolism type: other Chronicity: acute Acute cor pulmonale presence: with acute cor pulmonale Qualified Code(s): I26.09 - Other pulmonary embolism with acute cor pulmonale - Date of Service Date of Service:: 06/15/18 - Chief Complaint Lung cancer follow-up - History of Present Illness Patient is a 66-year-old gentleman smoker who quit over 20 years ago after a 30+ pack year smoking who presented with a months history of increasing dyspnea on exertion and wheezing. Chest x-ray followed by a CT scan of the chest revealed a left lower lobe mass. Bronchoscopy by Dr. Mullen on 05/19/2017 showed a left lower lobe endobronchial lesion and biopsy confirmed an adenocarcinoma. Staging PET/CT IMPRESSION: 1. ABNORMAL EXAMINATION INDICATIVE OF MALIGNANT VIABLE NEOPLASM. 2. Increased glucose concentration heterogeneously defined in the left mid-lower posteromedial, posterior hemithorax, left lower lobe, fulfills quantitative criteria for viable neoplasm. 3. The increase in glucose concentration observed in the bilateral thoracic perihilum does not fulfill strict quantitative criteria for viable neoplasm with single point technique. 4. Asymmetric increased glucose concentration noted in the left hemipelvis contiguous to the subcutaneous fat may be further investigated with Brain MRI showed no evidence of metastatic disease. Pulmonary function tests are satisfactory for surgical resection. His past medical history is notable for prostate cancer presenting with an elevated PSA of 42. Patient is status post radical prostatectomy in October 2014 for a Aretha score 9 adenocarcinoma involving about 80% of the prostate with extra prostatic extension extensive positive margins and lymphovascular invasion as well as tory-neural invasion. Following his surgery patient underwent adjuvant radiation therapy concluded in 2014. At the completion of his treatment his PSA was less than 0.1 however by 2015 PSA relapse prompted initiation of ADT by his urologist which he continues to date with the most recent PSA of less than 0.1. His past medical history is also notable for multiple sclerosis with residual left lower extremity weakness but no recent flares. Treatment: On July 03, 2017 he underwent left lower lobe sleeve lobectomy at [facility] by Dr. Alfonso. Final pathology revealed a 6.5 cm single focus adenocarcinoma G2 negative margins no visceral pleural invasion no lymphovascular invasion and metastatic cancer was found in 1 lymph node position 11 mL (N1) of 16 N1 nodes dissected and non- and 8 N2 nodes dissected. Adjuvant Carbo-Alimta 10/13/2017-12/15/2017 (4 cycles) Delay as per patient request (insurance change) - Past Medical/Social History Past Medical History Past Medical History: Hyperlipidemia,Hypertension Other Past Medical History: MS Cancer: Lung cancer,Prostate cancer Past Surgical History Surgical: Prostatectomy Family History Paternal Past Medical History: Liver disease Paternal History of Cancer Liver cancer,Prostate cancer Maternal Past Medical History: Unknown Maternal History of Cancer: Bone cancer Social History Social History: No changes Smoking Status Former smoker Review of Systems Constitutional:: Reports: Fatigue. Denies: Fever, Sweats, Weight loss, Appetite change, Chills Cardiovascular:: Reports: Dyspnea on exertion - Any exertion, 1 flight of stairs. Denies: Chest pain, Palpitations, Orthopnea, PND, Shortness of breath Respiratory: Reports: Cough - Minimal was clear sputum, Shortness of breath upon exertion. Denies: Hemoptysis, Shortness of Breath, Wheezing Gastrointestinal:: Denies: Abdominal pain - Discomfort at the sites of Lovenox injections, Nausea, Vomiting, Diarrhea, Constipation, Hematochezia Genitourinary: Denies: Dysuria, Hematuria, 15, Flank pain Musculoskeletal:: Denies: Back pain, Myalgia, Arthralgia Skin: Denies: Rash, Skin Changes, Wounds Neurological:: Denies: Headache, Dizziness, Visual changes, Tinnitus, Hearing loss Psychiatric: Denies: Anxiety, Depression, Homicidal Ideations, Suicidal Ideations Vital Signs Height 5 ft 10 in Weight: 91.989 kg Weight in Pounds 202.8 lbs Pulse Ox 100 - Physical Exam General: Alert, Oriented x3, No apparent distress, - - ECOG 1-2 HEENT: Atraumatic, PERRLA, EOMI, Normocephalic Oropharynx:: Dry mucosa Neck:: Supple, Trachea midline. Negative for: JVD, bilateral Cardiac:: Regular rate, Regular rhythm, Normal S1, Normal S2. Negative for: Murmur Lungs: Clear to auscultation, Diminished, Excusion symmetrical. Negative for: Rhonchi, Wheezes Abdomen:: Soft, Non-tender, Non-distended. Negative for: Hepatosplenomegaly Extremities:: Negative for: Cyanosis, Edema Neurological: Neuro grossly intact Skin:: Negative for: Lesions, Rash, Petechiae, Ecchymosis Psychiatric:: Appropriate affect, Euthymic Lymphatics:: Negative for: Cervical lymphadenopathy, Supraclavicular lymphadenopathy Laboratory Data: Recent CBC, CMP reviewed in EMR Assessment and Plan 66-year-old male with: 1. Non-small cell lung cancer, adenocarcinoma histology, left lower lobe. Patient is status post left lower lobectomy and lymph node dissection at [facility] July 03, 2017 with R0 resection. Pathologic stage IIB(T2b, N1, M0). Received adjuvant chemotherapy with carboplatin Alimta for 4 cycles October-December 2017 (as per patient request of delay) now on surveillance, follow-up every 3 months in the first [address] of the chest and abdomen (covering entire liver and adrenals) is due this month. 2. A very high risk prostate cancer status post radical prostatectomy followed by adjuvant radiation therapy in 2014 and has been on ADT since 2016 due to PSA relapse. Disease seems to be in remission on therapy at this time with PSA stable less than 03 May 2018. Care has been under his urologist and will continue to watch concurrently. 3- Pulmonary embolism and bilateral lower extremities DVT, unprovoked 10/02/2017. This raises concern for a possible underlying malignancy induced hypercoagulability and therefore advice systemic anticoagulation for at least one year probably long-term. 4-Anemia, probably multifactorial, to update iron and B12 studies. 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 Comorbid condition COPD, residual left lower extremity weakness from a remote attack with multiple sclerosis. Prostate cancer in remission on LHRH therapy. Patient was seen was his son impression and recommendations discussed Medications: Prescriptions This Visit Medication Instructions Recorded Bisprolol Fumarate 10 mg PO DAILY 11/03/17 Primary Care Provider: Fernando Mock MD Referring Provider: 06/15/18 1135 <Electronically signed by Dago Leger MD> Date Dago Leger MD [facility] Signature: Date (if applicable) CC: Tavon Mullen MD; Fernando Mock DO PULMONARY FUNCTION Observed: 06/10/2018 Status: F Source: [place] TEST 1:04 PM [facility] [place] REPOSITORY [facility] Pulmonary Services/Neurology [address] [place] [address] MR#: [id number] Acct: [id number] Name: SHAILA STOLL Rep #: [id number] : 1950 67 From: David Mock DO Referring Dr: Tavon Mullen MD Status: REG CLI Ordering Dr: Date: Location: [facility] Sex: M C INTRODUCTION: The patient is a 67-year-old male that presents for pulmonary function testing secondary to a diagnosis of shortness of breath. Respiratory therapy reports good patient effort. Bronchodilators were used during testing. INTERPRETATION: Forced expiration spirometry demonstrates the presence of a moderately severe large airways obstructive ventilatory defect. There was no significant response to aerosolized bronchodilators. Spirograms are of good quality do not plateau indicating slow emptying of the lungs. Body plethysmography was performed and reveals a decreased TLC to 5.16 L, 78% of predicted, indicative of a mild restrictive ventilatory defect. The remainder of the lung volumes are symmetrically reduced. Diffusing capacity by single breath CO is moderately reduced at 42% of predicted. When compared to previous pulmonary function studies dated January 2018, there has been significant reductions in the patient's FEV1 and DLCO. IMPRESSION: These pulmonary function studies demonstrate the presence of an irreversible moderately severe mixed ventilatory defect with associated symmetric reduction in diffusing capacity. There has been worsening in the patient's PFTs as noted above. 06/10/18 1304 <Electronically signed by David Mock DO> Date David Mock DO CC: Tavon Mullen MD; Katlyn Mullins DO Date Dictated: 06/10/18 130 Date Transcribed: 06/10/181301 Flash Ranging Crewmember: JOSI Signed PULMONARY VISIT REPORT Observed: 06/08/2018 Status: F Source: [place] 8:11 AM [facility] [place] REPOSITORY [facility] [address] [place] [address] OFFICE VISIT Date of Service: 06/08/18 MR#: [id number] Acct: [id number] Name: SHAILA STOLL Rep #: [id number] : 1950 Provider: Tavon Mullen MD Age/Sex: 67/M [place] [facility] Status: Signed Assessment AND Plan Problems 1. Adenocarcinoma of left lung C34.92 2. Dyspnea on exertion R06.09 3. Multiple sclerosis G35 4. Prostate cancer C61 5. Other acute pulmonary embolism with acute cor pulmonale I26.09 Plan Unclear etiology at this time. Patient is reporting increased shortness of breath and fatigue that appears to be persistent. Last CT scan of the chest showed improvement in mediastinal lymphadenopathy. Last echocardiogram in March showed preserved ejection fraction with no significant valvular abnormalities. Pulmonary function tests have been obtained in the past and would not explain current symptomatology. Patient is to see oncology next week. After review of the risks, benefits and alternatives of the patient, will proceed with a generalized workup. Will obtain a CBC for evaluation of leukocytosis and hemoglobin. Will obtain a BMP for evaluation of renal function. Will obtain a TSH for hypothyroidism. Echocardiogram and pulmonary function test will be obtained to compare to previous testing to see if these would explain etiology. If these are negative, repeat CT scan for evaluation of recurrence of cancer would be indicated. No change in medications at this time. Patient was advised to monitor for occult bleeding. Obtain TSH, CBC, BMP, echo and PFT. Possible need for repeat imaging to evaluate for recurrence of cancer. Orders Orders: Plan Detail Follow Up 2 Weeks (CSM) HPI 1 M FU: Chief Complaint: Generalized fatigue and shortness of breath on exertion Details: Patient is a 67-year-old male, currently under the care of Dr. Mcgraw, who presents for evaluation secondary to generalized fatigue and shortness of breath on exertion. Since last visit, patient denies any ER visits, hospitalizations or prednisone burst. Patient feels subjectively unchanged compared to previous. Patient reports he still having some dyspnea on exertion. Patient's believes that he is having dyspnea at rest at times. Patient has noted worse nasal drainage and a cough productive of clear to white sputum. Patient feels that this cough is worse compared to previous. However, overall, patient feels just an overall sense of fatigue. Patient states I feel like I am still on chemotherapy. Patient does report that his lower extremities appear to have improved sensation and strength compared to previously. Patient denies any symptoms of claudication or lower extremity swelling. Patient states he does have some issues with hemorrhoidal bleeding, but feels this is grossly unchanged compared to previous. Patient denies any hemoptysis, epistaxis or excessive bruising. Patient's feels that he appears pale. No testing was reviewed at this visit. Patient has been checking his saturations frequently. Patient states he typically ranges from 98-99% on room air at home. Patient is unclear on what his heart rate has been, but states he does take medications to help with his blood pressure and heart rate. Patient states that in the past his blood pressure is typically higher than it was today. Patient has had some weight loss and denies any change in dietary intake. 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: No Accompanied by: Is patient in pain?: No Allergies morphine Adverse Reaction (Intermediate, Verified 06/08/18 06:34) MAKES HIS NAUSEATED AND SICK Medications Lupron Depot mg IM UD 10/02/17 [History Confirmed 06/08/18] Bisprolol Fumarate 10 mg PO DAILY 11/03/17 [History Confirmed 06/08/18] Handicap Placard #1 ea 02/18/18 [Rx Confirmed 06/08/18] Folic Acid 1 mg PO DAILY@0800 03/31/18 [History Confirmed 06/08/18] Lansoprazole [Prevacid] 15 mg PO DAILY 03/31/18 [History Confirmed 06/08/18] Aspirin [Aspirin, Baby] 81 mg PO DAILY@0800 #30 tab.chew 04/01/18 [Rx Confirmed 06/08/18] Atorvastatin Calcium [Lipitor] 80 mg PO QHS tab 04/01/18 [Rx Confirmed 06/08/18] enoxaparin 150 mg/mL subcutaneous syringe 150 mg SC DAILY #30 ml 04/28/18 [Rx Confirmed 06/08/18] [facility] Medical History Viral pharyngitis (Acute) Nasopharyngitis (Acute) Limb weakness (Acute) unusual tierdness (Acute) Sinusitis (Acute) SOB (shortness of breath) (Acute) Dyspnea (Acute) Adenocarcinoma of lung (Chronic) Hyperlipidemia (Chronic) Hypertension (Chronic) 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) LYMPH NODE REMOVAL-CHEST (Acute) BLOOD CLOT LUNGS (Acute) Deep vein blood clot of left lower extremity (Acute) Deep vein blood clot of right lower extremity (Acute) Surgical History History of prostatectomy (Acute) Family History Father Prostate cancer Liver cancer Liver disease Mother Bone cancer Social History Smoking Status: Former smoker how long ago did patient quit smokin, 2 pk/day second hand exposure: Yes alcohol intake: never substance use type: does not use Review of Systems Const CONSTITUTIONAL: Positive fatigue; negative anorexia, body ache, chills, daytime sleepiness, fever(s), night sweats, oral thrush, stops breathing during sleep, weight loss, sleeping in chair, weight loss, weight gain, frequent colds, seasonal allergies, other, headache(s) or orthopnea EETM Ear Nose Throat Mouth: Positive hearing normal and nasal discharge; negative hard of hearing, hoarseness, dry mouth in morning, change in vision, itchy eyes, eye pain, swallowing Difficulty, ear pain, nose bleed, headache(s), mouth pain, nasal congestion, post nasal drip, sinus pain, sinus pressure, sore throat or other Cardio Cardiovascular: Negative chest pain, chest pain at rest, chest pain with activity, irregular heart rhythm, edema, shortness of breath when lying down, palpitations, murmur or other Resp Respiratory: Positive as per HPI, shortness of breath and cough cough: Positive productive color: Positive clear; negative pain with cough, wheezing, chest congestion, chest tightness, pain on inspiration, inhalers, increase use of rescue inhalers, snoring, apnea or other Gastro Gastrointestional: Negative bloody stools, change in appetite, difficulty swallowing, reflux, hematemesis, melena stool, loose stool, constipation or other Genitourinary: Negative blood in urine, nocturia, pain with urination or other Musc Musculoskeletal: Negative body pain, back pain, neck pain or other Skin/Breast Skin/Breast: Negative dry skin, itching, rash, unusual bruising, breast lump or other Neuro Neurological: Negative restless legs, confusion, weakness or other Psych Psychocological: Negative abnormal sleep pattern, anxiety, thoughts of hurting self/others, hopelessness or other Lymph Lymphatic: Negative easy bleeding, easy bruising, swollen lymph nodes or other Exam Const Constitutional: Positive conversant, cooperative, well developed, well nourished, good hygiene and appears older than stated age; negative wearing supplemental oxygen Pale Head Head: Positive normocephalic and atraumatic; negative cyanosis of lips/distal nose, frontal sinus tenderness or maxillary sinus tenderness Eyes Eye: Positive clear conjunctiva; negative nystagmus, scleral abnormality or cataract present Ears Ear: Positive hearing normal and external ears normal; negative hard of hearing Nose Nose: Positive external nose normal, septum normal and clear nasal discharge; negative epistaxis or nasal polyp Mouth Mouth: Positive oral mucosae normal, no lesions, dentures and posterior oropharynx is adequate; negative post nasal drip, malodorous breath or oral thrush present Mallampati Score: II: Mallampati Score Neck Neck: Positive normal visual inspection, full ROM and trachea midline; negative lymphadenopathy or JVD Chest Wall Chest: Positive symmetric chest movement and increased A/P diameter; negative crepitus or tenderness Resp lung sounds: Positive diminished and prolonged expiratory time; negative wheezes, rhonchi, rales, use of accessory muscles, wheeze present on forced exhalation or dullness to percussion Cardio Cardiac: Positive regular rate, regular rhythm, S1 normal and S2 normal; negative murmur, rub or gallop GI GI: Positive normal to inspection and normal bowel sounds; negative distended, ascites or epigastric tenderness Genitourinary: Positive deferred Musc Musculoskeletal: Positive steady gait; negative using an assistive device for ambulation, kyphosis or scoliosis Skin Pulmonary Skin Exam: Positive intact and dermal atrophy; negative rash, lesion, ulcers or erythema Pulses Pulse: Yes radial pulses present Extremities Extremities: Yes capillary refill normal, No cyanosis, No edema, No clubbing, No stasis dermatitis Neuro Neurologic: Yes conversant, Yes no focal neuro deficits, Yes normal concentration, Yes understands questions, Yes cooperative, Yes normal cognition, Yes normal coordination Lymph Lymphatic: No lymphadenopathy Psych Appearance: Positive grossly normal Mental Status: Positive mental status grossly normal Mood: Positive congruent mood Affect: Positive normal affect Coding Level of Care Code Off vis,est,level 5 Diagnoses Adenocarcinoma of left lung C34.92 Laterality: left Dyspnea on exertion R06.09 Dyspnea type: dyspnea on exertion Multiple sclerosis G35 Prostate cancer C61 Other acute pulmonary embolism with acute cor pulmonale I26.09 Pulmonary embolism type: other Chronicity: acute Acute cor pulmonale presence: with acute cor pulmonale 06/08/18 0811 <Electronically signed by Tavon Mullen MD> Date Tavon Mullen MD Cosigner Signature: Date (if applicable) CC: Katlyn Mullins DO CBC W/DIFF, AUTOMATED Collected: 06/08/2018 Status: F Source: [place] 8:11 AM [facility] [place] REPOSITORY Order Comment: Reason for Laboratory Test . TYPE CODE TESTS RESULT OUT OF RANGE REFERENCE UNITS LAB L100.1000 4.4-11.0 K/mm3 Normal WBC 8.3 LAB L100.1200 4.6-6.2 M/mm3 Low RBC 3.17 LAB L100.1300 13.0-16.5 g/dl Low HGB 9.5 LAB L100.1400 40-54 % Low HCT 29.9 LAB L100.1500 80-94 fL High MCV 94.3 LAB L100.1600 27.0-32.0 pg Normal MCH 30.0 LAB L100.1700 32-36 g/gl Low MCHC 31.8 LAB L100.1810 11.6-14.6 % High RDW CV 15.0 LAB L100.1820 35.1-43.9 fl High RDW SD 51.3 LAB L100.1900 150-450 K/mm3 Normal PLT 263 LAB L100.2000 6.2-12.0 fl Normal MPV 8.4 LAB L100.2100 47-70 % High NEUT% 74.3 LAB L100.2200 19-41 % Low LY% 15.1 LAB L100.2300 0-10 % Normal MONO% 8.4 LAB L100.2400 0-5 % Normal EO% 1.4 LAB L100.2500 0-1 % Normal BASO% 0.2 LAB L100.2550 0.0-0.9 % Normal IM GRAN % 0.600 Result Comment: IG% - Immature Granulocytes (promyelocytes, myelocytes and metamyelocytes) > 1% indicates that a LEFT SHIFT is Present. LAB L100.2620 2.0-7.7 X10 3/uL Normal Absolute Neut 6.2 LAB L100.2720 0.83-4.51 X10 3/ul Normal Absolute Lymph 1.25 Performed By: #### L100.0100 #### [facility] [address] [place], [address] COMPREHENSIVE METABOLIC Collected: 06/08/2018 Status: F Source: [facility] 8:11 AM [facility] [place] REPOSITORY Order Comment: Reason for Laboratory Test . TYPE CODE TESTS RESULT OUT OF RANGE REFERENCE UNITS LAB L501.0100 74-106 mg/dL Normal GLU 93 Result Comment: Please note revised GLUCOSE reference range effective 2017. LAB L501.1000 7-18 mg/dL Normal BUN 17 LAB L501.1100 0.70-1.30 mg/dL High CREAT,SERUM 1.33 Result Comment: The validity of the calculated GFR AND GFRAA in patients over 70 years has not been determined. Clinical correlation is essential. LAB L501.1110 >60 mL/min Low EST GFR 57 Result Comment: Non- GFR Calc LAB L501.1115 >60 mL/min Normal EST GFR - AA 69 Result Comment: GFR Calc LAB L501.1255 ml/min Normal Estimated CRCL 57.17 LAB L501.1300 10-20 RATIO Normal BUN/CRE 12.8 LAB L501.1500 6.4-8. g/dL High 2 T PROT 8.8 LAB L501.1800 3.2-5. g/dL Low 0 ALB 3.1 LAB L501.1950 2.2-4. g/dL High 2 GLOB 5.7 LAB L501.2000 0.9-2. RATIO Low 4 A/G 0.5 LAB L501.2200 8.5-10 mg/dL Normal .1 CA 8.6 LAB L501.4100 15-37 U/L Normal AST 24 LAB L501.4305 45-117 U/L High ALK P 119 LAB L501.4405 16-61 U/L Normal ALT 30 LAB L501.4600 0.20-1 mg/dL Normal .00 T BILI 0.30 LAB L501.5300 136-14 mmol/L Normal 5 NA 136 LAB L501.5600 3.5-5. mmol/L Normal 1 K 4.4 LAB L501.5900 98-107 mmol/L Normal CL 103 LAB L501.6100 21.0-3 mmol/L Normal 2.0 CO2 25.0 LAB L501.6200 5-15 Normal GAP 8 Performed By: #### L500.4050 #### [facility] [address] [place], [place], [address] THYROID STIM HORMONE Collected: 06/08/2018 Status: F Source: [place] ([facility]) 8:03 AM [facility] [place] REPOSITORY TYPE CODE TESTS RESULT OUT OF RANGE REFERENCE UNITS LAB L501.9520 0.358-3.74 uIU/mL Normal TSH 3.35 Performed By: #### L501.9520 #### [facility] [address] [place], [address] PSA,TOTAL - ANNUAL Collected: 05/18/2018 Status: F Source: [place] SCREEN 9:54 AM [facility] [place] REPOSITORY TYPE CODE TESTS RESULT OUT OF RANGE REFERENCE UNITS LAB L501.9910 0.00-4.00 ng/mL Normal PSA,TOT < 0.01 SCREEN Result Comment: This test was performed using the TPSA assay method for the [employer] chemistry system. Values obtained with different assay methods cannot be used interchangably. When changing PSA assays in the course of monitoring a patient, additional sequential testing should be carried out to confirm baseline values. Performed By: #### L501.9910 #### [facility] [address] [place], [address] PULMONARY VISIT REPORT Observed: 04/28/2018 Status: F Source: [place] 12:03 PM [facility] [place] REPOSITORY [facility] [address] [place] [address] OFFICE VISIT Date of Service: 04/28/18 MR#: [id number] Acct: [id number] Name: SHAILA STOLL Rep #: [id number] : 1950 Provider: Tavon Mullen MD Age/Sex: 67/M [place] [facility] [place] Status: Signed Assessment AND Plan Problems 1. Shortness of breath R06.02 2. Cancer of lower lobe of left lung C34.32 3. Other acute pulmonary embolism with acute cor pulmonale I26.09 Plan Patient with documented pulmonary embolism at the end of March while on Eliquis therapy. Clinical suspicion for progression of pulmonary embolism leading to current findings. Discussed with oncology and patient will be transitioned over to Lovenox 150 mg subcu daily. Did discuss with patient about the possibility of repeating CT scan, but this will not change diagnostic plan. Also discussed the possibility of admission to the hospital. Patient's follow-up will be moved up to 1 month. Last pulmonary function test showed only restrictive lung disease, so inhaler therapy is likely not to be helpful. Patient was advised to monitor saturations with exertion. Discontinue Eliquis. Transition to Lovenox. Watch oxygen saturations. Potential for hospitalization if not improving. Patient will go directly to oncology following this appointment. Medications New: Discontinued: apixaban Taken 10 mg BID x 7 day (rx separate) and the5 mg PO BID #60 0RF Acute BL PE n transition to 5 mg BID thereafter. Discontinued Reas on: Order Changed Plan Detail Follow Up 1 Month (BWA) HPI Shortness of breath: Chief Complaint: Progressive shortness of breath Details: This 67-year-old male, currently under the care of Dr. Mcgraw, who presents for evaluation secondary to progressive shortness of breath. Patient reports that he was admitted in late March at [facility] with complaints of right arm weakness and proprioceptive loss. Patient states his symptoms resolved within 20 minutes, but he was admitted for 3 days. As part of his hospitalization, the patient reportedly had a CT scan with contrast showing a acute right lower lobe pulmonary embolism. Patient was given aspirin prior to discharge. Oncology and pulmonary were not consulted during the hospitalization. Patient reports that since his hospitalization he has noted progressive shortness of breath. Patient places his exercise tolerance at 20-30 feet at this time. Patient states his saturations have been okay, but he has noted higher heart rates with any exertion. Patient states his primary care physician had ordered a stress test to be done this week. Patient denies any recurrence of neurologic symptoms. Patient denies any cyanosis or trauma. Patient has not had any lower extremity edema. Patient does report a sharp stabbing pain located in the left chest is worse with coughing. Patient states this resolves shortly after coughing and does improve with external pressure. Patient reports he has been compliant with Eliquis therapy. Patient has had an intermittent dry cough, but denies any purulent sputum or fever. Did have a discussion with patient's primary oncologist during his office appointment. Also reviewed the CT scan personally with the patient showing him the right lower lobe pulmonary embolism. Following the appointment, patient was taken to oncology for training on administering Lovenox therapy. 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: No Allergies morphine Adverse Reaction (Intermediate, Verified 04/28/18 09:03) MAKES HIS NAUSEATED AND SICK Medications Lupron Depot mg IM UD 10/02/17 [History Confirmed 04/28/18] Bisprolol Fumarate 10 mg PO DAILY 11/03/17 [History Confirmed 04/28/18] Handicap Placard #1 ea 02/18/18 [Rx Confirmed 04/28/18] Folic Acid 1 mg PO DAILY@0800 03/31/18 [History Confirmed 04/28/18] Lansoprazole [Prevacid] 15 mg PO DAILY 03/31/18 [History Confirmed 04/28/18] Aspirin [Aspirin, Baby] 81 mg PO DAILY@0800 #30 tab.chew 04/01/18 [Rx Confirmed 04/28/18] Atorvastatin Calcium [Lipitor] 80 mg PO QHS tab 04/01/18 [Rx Confirmed 04/28/18] Enoxaparin Sodium [Lovenox] 150 mg SQ DAILY 1 Days #1 syringe 04/28/18 [Rx] enoxaparin 150 mg/mL subcutaneous syringe 150 mg SC DAILY #30 ml 04/28/18 [Rx Confirmed 04/28/18] [facility] Medical History Viral pharyngitis (Acute) Nasopharyngitis (Acute) Limb weakness (Acute) unusual tierdness (Acute) Sinusitis (Acute) SOB (shortness of breath) (Acute) Dyspnea (Acute) Adenocarcinoma of lung (Chronic) Hyperlipidemia (Chronic) Hypertension (Chronic) 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) LYMPH NODE REMOVAL-CHEST (Acute) BLOOD CLOT LUNGS (Acute) Deep vein blood clot of left lower extremity (Acute) Deep vein blood clot of right lower extremity (Acute) Surgical History History of prostatectomy (Acute) Family History Father Prostate cancer Liver cancer Liver disease Mother Bone cancer Social History Smoking Status: Former smoker how long ago did patient quit smokin, 2 pk/day second hand exposure: Yes alcohol intake: never substance use type: does not use Review of Systems Const CONSTITUTIONAL: Positive fatigue; negative anorexia, body ache, chills, daytime sleepiness, fever(s), night sweats, oral thrush, stops breathing during sleep, weight loss, sleeping in chair, weight loss, weight gain, frequent colds, seasonal allergies, other, headache(s) or orthopnea EETM Ear Nose Throat Mouth: Positive hearing normal and nasal discharge; negative hard of hearing, hoarseness, dry mouth in morning, change in vision, itchy eyes, eye pain, swallowing Difficulty, ear pain, nose bleed, headache(s), mouth pain, nasal congestion, post nasal drip, sinus pain, sinus pressure, sore throat or other Cardio Cardiovascular: Negative chest pain, chest pain at rest, chest pain with activity, irregular heart rhythm, edema, shortness of breath when lying down, palpitations, murmur or other Resp Respiratory: Positive as per HPI, shortness of breath shortness of breath: Positive worsening and cough cough: Positive non-productive; negative pain with cough, wheezing, chest congestion, chest tightness, pain on inspiration, inhalers, increase use of rescue inhalers, snoring, apnea or other Gastro Gastrointestional: Negative bloody stools, change in appetite, difficulty swallowing, reflux, hematemesis, melena stool, loose stool, constipation or other Genitourinary: Negative blood in urine, nocturia, pain with urination or other Musc Musculoskeletal: Negative body pain, back pain, neck pain or other Skin/Breast Skin/Breast: Negative dry skin, itching, rash, unusual bruising, breast lump or other Neuro Neurological: Positive weakness; negative restless legs, confusion or other Psych Psychocological: Negative abnormal sleep pattern, anxiety, thoughts of hurting self/others, hopelessness or other Lymph Lymphatic: Negative easy bleeding, easy bruising, swollen lymph nodes or other Exam Const Constitutional: Positive conversant, cooperative, in no acute respiratory distress, well developed, well nourished, good hygiene, dyspenic and healthy appearing; negative wearing supplemental oxygen Presented in a wheelchair. Mild conversational dyspnea. Head Head: Positive normocephalic and atraumatic; negative cyanosis of lips/distal nose, frontal sinus tenderness or maxillary sinus tenderness Eyes Eye: Positive clear conjunctiva; negative nystagmus, scleral abnormality or cataract present Ears Ear: Positive hearing normal and external ears normal; negative hard of hearing Nose Nose: Positive external nose normal, septum normal and no nasal discharge; negative epistaxis or nasal polyp Mouth Mouth: Positive oral mucosae normal, no lesions and posterior oropharynx is adequate; negative post nasal drip, malodorous breath or oral thrush present Mallampati Score: II: Mallampati Score Neck Neck: Positive normal visual inspection, full ROM and trachea midline; negative lymphadenopathy or JVD Chest Wall Chest: Positive normal inspection of the chest and symmetric chest movement; negative crepitus or tenderness Resp lung sounds: Positive diminished, prolonged expiratory time and increased work of breathing; negative wheezes, rhonchi, rales, use of accessory muscles or wheeze present on forced exhalation Cardio Cardiac: Positive regular rate, regular rhythm, S1 normal and S2 normal; negative murmur, rub or gallop GI GI: Positive normal to inspection and normal bowel sounds; negative distended, ascites or epigastric tenderness Genitourinary: Positive deferred Musc Musculoskeletal: Positive in a wheelchair; negative kyphosis or scoliosis Skin Pulmonary Skin Exam: Positive intact and dermal atrophy; negative rash, ulcers, lesion or erythema Pulses Pulse: Yes radial pulses present Extremities Extremities: Yes capillary refill normal, No clubbing, No cyanosis, No edema, No stasis dermatitis Neuro Neurologic: Yes conversant, Yes no focal neuro deficits, Yes normal concentration, Yes understands questions, Yes cooperative, Yes normal cognition, Yes normal coordination Lymph Lymphatic: No lymphadenopathy Psych Appearance: Positive grossly normal Mental Status: Positive mental status grossly normal Mood: Positive congruent mood Affect: Positive normal affect Coding Level of Care Code Off vis,est,level 5 Diagnoses Shortness of breath R06.02 Cancer of lower lobe of left lung C34.32 Other acute pulmonary embolism with acute cor pulmonale I26.09 Pulmonary embolism type: other Chronicity: acute Acute cor pulmonale presence: with acute cor pulmonale 04/28/18 1203 <Electronically signed by Tavon Mullen MD> Date Tavon Mullen MD Cosigner Signature: Date (if applicable) CC: Katlyn Mullins DO CONSULTATION Observed: 04/08/2018 Status: F Source: [place] 5:45 PM [facility] [place] REPOSITORY [facility] Medical Records Department [address] [place] [address] Consultation 04/01/18 1419 MR#: [id number] Acct: [id number] Name: STOLLSHAILA Rep #: [id number] : 1950 67 From: Andreea Rivera MD PCP: Fernando Mock DO Status: DIS SHYLA Y Location: [place] [address] Problem List (1) CVA (cerebral vascular accident) Status: Acute Qualifiers: CVA mechanism: embolism Laterality of affected vessel: bilateral Reason for Consult Date of Consultation: 04/01/18 Reason for Consultation: Stroke History of Present Illness: The patient is a 67 year old CM with PMH HTN, HLD, ? MS (per patient this was ?diagnosis given to him about 30 yrs ago, not on any Medications, has chronic left leg weakness), H/O NSCLC- adenocarcinoma, s/p resection/lobectomy July 2017, s/p chemotherapy, H/O DVT and PE on Eliquis, H/O prostate cancer admitted with acute onset right arm weakness and incoordination that occurred when he was driving yesterday (03/31/18) and lasted for about 15 minutes before resolving, his NIHSS on admission was 0, MRI brain done on admission showed bilateral MCA punctate embolic strokes and also bilateral BOOK CUTTER distribution/ b/l occipital punctate embolic stroke. At present patient denies any MONREAL, visual disturbances, speech disturbances, sensory loss or focal motor weakness. LDL on admission was 143, TTE showed EF 65%, mildly enlarged LA, no PFO. Lives with his spouse, denies any falls, does not use cane or walker to ambulate, and does not need assistance for his ADLs. [] Past Medical History Past Medical History (Chronic Problems): Chronic Problems (Last Reviewed 03/16/18 @ 11:12 by Zenobia Hillman) Prostate cancer (Chronic) surgery , R.T. 2014 PSA relapse 2016 ADT Multiple sclerosis (Chronic) left leg weakness Cancer of lower lobe of left lung (Chronic) Regional lymph node metastasis present (Chronic) Anemia (Chronic) Pulmonary embolism (Chronic) Adenocarcinoma of lung (Chronic) Hyperlipidemia (Chronic) Hypertension (Chronic) 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) [facility] 07/03/17 Medical History: Medical History (Last Reviewed 03/16/18 @ 11:12 by Zenobia Hillman) Viral pharyngitis (Acute) J02.9 Nasopharyngitis (Acute) J00 Limb weakness (Acute) R29.898 unusual tierdness (Acute) Sinusitis (Acute) J32.9 SOB (shortness of breath) (Acute) R06.02 Dyspnea (Acute) R06.00 Adenocarcinoma of lung (Chronic) C34.90 Hyperlipidemia (Chronic) E78.5 Hypertension (Chronic) I10 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) [facility] 07/03/17 LYMPH NODE REMOVAL-CHEST (Acute) [facility] 07/03/17 BLOOD CLOT LUNGS Deep vein blood clot of left lower extremity I82.402 Deep vein blood clot of right lower extremity I82.401 Allergies morphine Adverse Reaction (Intermediate, Verified 03/31/18 15:09) MAKES HIS NAUSEATED AND SICK Home Medications: Ambulatory Orders Medication Instructions Recorded Lupron Depot mg IM UD 10/02/17 Apixaban [Eliquis] 5 mg PO BID #60 tab.ds.pk 10/04/17 Bisprolol Fumarate 10 mg PO DAILY 11/03/17 Surgical History: Surgical History (Last Reviewed 03/16/18 @ 11:12 by Zenobia Hillman) History of prostatectomy (Acute) Z98.890, Z90.79 Surgical History: - Lives: Spouse/ Significant Other Smoking Status: Never smoker Tobacco Use: Non-smoker Alcohol: None Drugs: None - *Family History Maternal Family History: Family History (Last Reviewed 03/31/18 @ 17:39 by CARMEN Metcalf) Father Prostate cancer Liver cancer Liver disease Mother Bone cancer maternal Family History: Family History (Last Reviewed 03/31/18 @ 17:39 by CARMEN Metcalf) Father Prostate cancer Liver cancer Liver disease Mother Bone cancer Review of Systems Constitutional: Reports: - - complete ROS negative except as documented in HPI Patient Problems: Active and Suspected Problems (Last Reviewed 03/16/18 @ 11:12 by Zenobia Hillman) CVA (cerebral vascular accident) (Acute) Elevated troponin (Acute) - Physical Exam General: Alert HEENT: Normocephalic Neck: Supple Lungs: Normal air movement Cardiovascular: Normal S1, Normal S2 Abdomen: Bowel Sounds Present Extremities: No cyanosis Musculoskeletal: No Tenderness to Palpation of Joints or Extremities Neurological: - - consious, alert, AoAx3, CN 2-12 grossly intact, power 5/5 both UE/LE, no sensory loss, no cerebellar signs, Reflexes + B/L B/S/T/K/A, gait deferred. NIHSS 0 at present, mRS 0 Psych/Mental Status: Normal Affect Vital Signs Temp Pulse Resp BP Pulse Ox 98.8 F 80 16 112/65 98 04/01/18 12:52 04/01/18 12:52 04/01/18 12:52 04/01/18 12:52 04/01/18 12:52 Oxygen Delivery Method Room Air Weight: 90.038 kg Body Mass Index (BMI) 28.5 Intake and Output for Last 24 Hours Intake Total 480 / 480 Balance 480 / 480 Laboratory Tests Past 24 Hrs Sodium 139 Potassium 4.1 Chloride 107 Assessment/Plan All Active Problems (Last Reviewed 03/16/18 @ 11:12 by Zenobia Hillman) Educational circumstance (Acute) HCAP (healthcare-associated pneumonia) (Acute) CVA (cerebral vascular accident) (Acute) Elevated troponin (Acute) Viral pharyngitis (Acute) Nasopharyngitis (Acute) Limb weakness (Acute) unusual tierdness (Acute) Sinusitis (Acute) SOB (shortness of breath) (Acute) Dyspnea (Acute) History of prostatectomy (Acute) LYMPH NODE REMOVAL-CHEST (Acute) The patient is a 67 year old CM with PMH HTN, HLD, ? MS (per patient this was ?diagnosis given to him about 30 yrs ago, not on any Medications, has chronic left leg weakness), H/O NSCLC- adenocarcinoma, s/p resection/lobectomy July 2017, s/p chemotherapy, H/O DVT and PE on Eliquis, H/O prostate cancer admitted with acute onset right arm weakness and incoordination that occurred when he was driving yesterday (03/31/18) and lasted for about 15 minutes before resolving, his NIHSS on admission was 0, MRI brain done on admission showed bilateral MCA punctate embolic strokes and also bilateral BOOK CUTTER distribution/ b/l occipital punctate embolic stroke. At present patient denies any MONREAL, visual disturbances, speech disturbances, sensory loss or focal motor weakness. LDL on admission was 143, TTE showed EF 65%, mildly enlarged LA, no PFO. Lives with his spouse, denies any falls, does not use cane or walker to ambulate, and does not need assistance for his ADLs. Impression B/L MCA/BOOK CUTTER punctate embolic stroke-probably secondary to underlying malignancy history. adenocarcinoma NSCLC Plan -ASA 81 mg PO once daily. Continue Eliquis 5 mg PO BID. Bleeding risk discussed with patient. -Lipitor 80 mg PO q hs -MRI brain reviewed -Check CTA head/neck -TTE- EF 67%, mildly enlarged LA, no PFO. Given that patient is already on Eliquis, would hold off on CATHY -LDL-143, check Hba1c -Recommend 30 day event recorder -Check hypercoagulable panel -Recommend ophthalmology consult as outpatient. -group home Goal BP < 130/80 mmHg and Goal Hba1c < 7% -Stroke risk factors discussed and stroke education provided -Frequent neuro checks -PT/TO/ST -GI/DVT prophylaxis -Please call with question if any -Follow up with Neurology as outpatient in 2-3 weeks -Thank you for allowing us to participate in patient's care and management I spent 60 minutes taking history, doing physical examination, reviewing medical records, coordinating care and counseling the patient. Code Visit Inpatient E AND M: [id number] Init Hosp L3 04/08/18 1745 <Electronically signed by Andreea Rivera MD> Date Andreea Rivera MD Cosigner Signature (if applicable): Date CC: Tyler Rivera MD; DO Karine Chavez 12 LEAD ELECTROCARDIOGRAM Observed: 04/06/2018 Status: F Source: [place] 1:56 PM [facility] REPOSITORY [facility] Cardiovascular Services [address] [place] [address] 12 Lead EKG 03/31/18 1856 MR#: [id number] Acct: [id number] Name: SHAILA STOLL Rep #: [id number] : 1950 67 From: Fritz Zamora MD Attending Dr: Jeffery Dominguez M.D. Status: DIS SHYLA Ordering Dr: Trung Reed MD Date: 03/31/18 Location: [facility] Sex: M C Admitted: 03/31/18 Test Reason : CP ADMIT Blood Pressure : / mmHG Vent. Rate : 063 BPM Atrial Rate : 063 BPM P-R Int : 142 ms QRS Dur : 082 ms QT Int : 422 ms P-R-T Axes : 056 005 021 degrees QTc Int : 431 ms Normal sinus rhythm Normal ECG When compared with ECG of 31-MAR-2018 14:56, MANUAL COMPARISON REQUIRED, DATA IS UNCONFIRMED Confirmed by FRITZ ZAMORA ([id number]), food editor SUMA VANEGAS ([id number]) on 04/06/2018 1:55:53 PM Referred By: DR REED Confirmed By:FRITZ ZAMORA 04/06/18 1356 Date Fritz Zamora MD CC: Fernando Mock DO; Jeffery Dominguez M.D.; Trung Reed MD Signed CAROTID DUPLEX Observed: 04/02/2018 Status: F Source: [place] ULTRASOUND 2:43 PM [facility] REPOSITORY [facility] Cardiovascular Services [address] [place] [address] Carotid Duplex Ultrasound 04/01/18 0910 MR#: [id number] Acct: [id number] Name: SHAILA STOLL Rep #: [id number] : 1950 67 From: Andreea Rivera MD Attending Dr: Jeffery Dominguez M.D. Status: DIS SHYLA Ordering Dr: Jeffery Dominguez MD Date: 04/01/18 Location: [facility] Sex: M C Admitted: 03/31/18 Reason For Study: TIA Rt. Velocities/BP Lt. Velocities/BP Prox CCA 86.2/16.4 cm/sec. Prox CCA 131.0/29.9 cm/sec. Mid CCA 111.0/25.2 cm/sec. Mid CCA 87.9/22.9 cm/sec. Dist CCA 86.8/24.0 cm/sec. Dist CCA 63.9/20.5 cm/sec. Prox ICA 53.8/20.0 cm/sec. Prox ICA 82.7/28.1 cm/sec. Mid ICA 85.6/31.1 cm/sec. Mid ICA 90.9/32.8 cm/sec. Dist ICA 103.0/35.2 cm/sec. Dist ICA 85.7/30.6 cm/sec. Rt. ICA/CCA = 103.0/111.0=0.93. Lt. ICA/CCA = 90.9/87.9=1.03. Prox ECA 79.2/11.1 cm/sec. Prox ECA 96.2/16.4 cm/sec. Rt. Vert. 68.0/23.2 cm/sec. Lt. Vert. 54.2/15.7 cm/sec. Right Extracranial There is intimal thickening but no significant atherosclerotic plaque noted in the right common carotid artery. There is homogeneous, smooth atherosclerotic plaque noted in the right internal carotid artery. There is intimal thickening but no significant atherosclerotic plaque noted in the right external carotid artery. Antegrade flow is noted in the right vertebral artery. Left Extracranial There is intimal thickening but no significant atherosclerotic plaque noted in the left common carotid artery. There is homogeneous, smooth atherosclerotic plaque noted in the left internal carotid artery. There is homogeneous, smooth atherosclerotic plaque noted in the left external carotid artery. Antegrade flow is noted in the left vertebral artery. Interpretation Summary There is < 50% stenosis in the bilateral extracranial Internal carotid arteries (ICA) based on the velocity criteria. There is atherosclerotic plaque noted in bilateral ICAs. Antegrade flow noted in bilateral vertebral arteries. Ordering Physician: Jeffery Dominguez Referring Physician: TISHA AMARO Performed By: Merissa Kong, MARY, RVT 04/02/18 1443 Date Andreea Rivera MD CC: BILLIE Chavez M.D. Date Dictated: 04/01/18 0910 Date Transcribed: 04/02/18 144 Flash Ranging Crewmember: Signed 12 LEAD ELECTROCARDIOGRAM Observed: 04/02/2018 Status: F Source: [place] 1:35 PM [facility] REPOSITORY [facility] Cardiovascular Services [address] [place] [address] 12 Lead EKG 04/01/18 0540 MR#: [id number] Acct: [id number] Name: SHAILA STOLL Rep #: [id number] : 1950 67 From: Kash Rollins MD Attending Dr: Jeffery Dominguez M.D. Status: DIS SHYLA Ordering Dr: Trung Reed MD Date: 04/01/18 Location: [facility] Sex: M C Admitted: 03/31/18 Test Reason : AM EKG Blood Pressure : / mmHG Vent. Rate : 066 BPM Atrial Rate : 066 BPM P-R Int : 142 ms QRS Dur : 078 ms QT Int : 418 ms P-R-T Axes : 048 011 030 degrees QTc Int : 438 ms Normal sinus rhythm Normal ECG Confirmed by KAREN JOHNSON, KASH ([id number]), food editor SUMA VANEGAS ([id number]) on 04/02/2018 1:35:13 PM Referred By: DR REED Confirmed By:KASH ROLLINS MD 04/02/18 1335 Date Kash Rollins MD CC: Fernando Mock DO; Jeffery Dominguez M.D.; Trung Reed MD Signed 12 LEAD ELECTROCARDIOGRAM Observed: 04/02/2018 Status: F Source: [place] 1:26 PM [facility] REPOSITORY [facility] Cardiovascular Services [address] [place] [address] 12 Lead EKG 03/31/18 1456 MR#: [id number] Acct: [id number] Name: SHAILA STOLL Rep #: [id number] : 1950 67 From: Kash Rollins MD Attending Dr: Jeffery Dominguez M.D. Status: DIS SHYLA Ordering Dr: Hanna Vega MD Date: 03/31/18 Location: [facility] Sex: M C Admitted: 03/31/18 Test Reason : CP Blood Pressure : / mmHG Vent. Rate : 077 BPM Atrial Rate : 077 BPM P-R Int : 130 ms QRS Dur : 084 ms QT Int : 404 ms P-R-T Axes : 042 007 027 degrees QTc Int : 457 ms Normal sinus rhythm Low voltage QRS (limb leads) Confirmed by KAREN JOHNSON, KASH ([id number]), food editor SUMA VANEGAS ([id number]) on 04/02/2018 1:25:42 PM Referred By: MAXIMO Confirmed By:KASH ROLLINS MD 04/02/18 1325 Date Kash Rollins MD CC: Hanna Vega MD; Fernando Mock DO; Jeffery Dominguez M.D. Signed DISCHARGE SUMMARY Observed: 04/01/2018 Status: F Source: [place] 4:56 PM [facility] REPOSITORY [facility] Medical Records Department [address] [place] [address] Discharge Summary 04/01/18 1651 MR#: [id number] Acct: [id number] Name: SHAILA STOLL Rep #: [id number] : 1950 67 From: Jeffery Dominguez MD PCP: Fernando Mock DO Status: ADM SHYLA Y Location: [place] [address] Discharge Date and Diagnosis - Problem List Patient Problems: Active and Suspected Problems (Last Reviewed 03/16/18 @ 11:12 by Zenobia Hillman) CVA (cerebral vascular accident) (Acute) Elevated troponin (Acute) Date of Admission: 03/31/18 Date of Discharge: 04/01/18 - Primary Discharge Diagnosis Active and Suspected Problems (Last Reviewed 03/16/18 @ 11:12 by Zenobia Hillman) CVA (cerebral vascular accident) (Acute) Elevated troponin (Acute) - Secondary Discharge Diagnosis Chronic Problems (Last Reviewed 03/16/18 @ 11:12 by Zenobia Hillman) Prostate cancer (Chronic) surgery , R.T. 2015 PSA relapse 2016 ADT Multiple sclerosis (Chronic) left leg weakness Cancer of lower lobe of left lung (Chronic) Regional lymph node metastasis present (Chronic) Anemia (Chronic) Pulmonary embolism (Chronic) Adenocarcinoma of lung (Chronic) Hyperlipidemia (Chronic) Hypertension (Chronic) 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) [facility] 07/03/17 Hospital Course and Treatment Imaging Results: 04/01/18 14:18 CTA Head W/WO Contrast [CT] Urgent CTA Neck W/WO Contrast [CT] Urgent Operations: None Procedures: 2-D Echocardiogram Summary of Care Provided: The patient is a 67 year old M admitted on account of transient weakness and numbness and paresthesias in the right upper extremity. TIA/stroke was suspected. neurology consulted and stroke work up initiated. CTA of the head and neck were normal and MRI of the brain showed a few microinfarcts raising the suspicion for a central/cardiac source of emboli. TTE was negative. Patient is doing well and all neurological symptoms and deficits have resolved [] Discharge Activity: Return to Normal Activity, No Restrictions Home Medications: Medications to take at Discharge Lupron Depot mg IM UD 10/02/17 Apixaban [Eliquis] 5 mg PO BID #60 tab.ds.pk 10/04/17 Bisprolol Fumarate 10 mg PO DAILY 11/03/17 Handicap Placard #1 ea 02/18/18 Folic Acid 1 mg PO DAILY@0800 03/31/18 Lansoprazole [Prevacid] 15 mg PO DAILY 03/31/18 Aspirin [Aspirin, Baby] 81 mg PO DAILY@0800 #30 tab.chew 04/01/18 Atorvastatin Calcium [Lipitor] 80 mg PO QHS tablet 04/01/18 Following Prescrptions Were Given to Patient: Aspirin [Aspirin, Baby] 81 mg PO DAILY@0800 #30 tab.chew Primary Care Physician: Fernando Mock DO [Primary Care Provider] - Please follow up with your Primary Care Physician in: 1-2 weeks Medical Necessity - Tobacco Use Smoking Status: Never smoker Tobacco Use: Non-smoker Meaningful Use Info Meaningful Use Diagnoses (Choose all that apply): None applicable Code Visit Inpatient E AND M: 99191 Disch Hosp 04/01/18 4381 <Electronically signed by Jeffery Dominguez MD> Date Jeffery Dominguez MD Cosigner Signature (if applicable): Date CC: Fernando Mock DO; Jeffery Dominguez M.D. Signed DISCHARGE INSTRUCTION Observed: 04/01/2018 Status: F Source: [place] 4:50 PM [facility] REPOSITORY [facility] Medical Records Department [address] [place] [address] Instructions for Home/Discharge Instructions 04/01/18 1649 MR#: [id number] Acct: [id number] Name: SHAILA STOLL Rep #: [id number] : 1950 67 From: Jeffery Dominguez MD PCP: Fernando Mock DO Status: ADM SHYLA - Discharge Diagnoses Current Active Problems: Current Active and Chronic Problems (Last Reviewed 03/16/18 @ 11:12 by Zenobia Hillman) CVA (cerebral vascular accident) (Acute) Elevated troponin (Acute) You will use the following diet at home:: No restrictions, Regular Your food should be the consistency of: Regular Discharge Activity: Return to Normal Activity, No Restrictions Allergies/Adverse Reactions: Allergies morphine Adverse Reaction (Intermediate, Verified 03/31/18 15:09) MAKES HIS NAUSEATED AND SICK Medications to take at Discharge Lupron Depot mg IM UD 10/02/17 Apixaban [Eliquis] 5 mg PO BID #60 tab.ds.pk 10/04/17 Bisprolol Fumarate 10 mg PO DAILY 11/03/17 Handicap Placard #1 ea 02/18/18 Folic Acid 1 mg PO DAILY@0800 03/31/18 Lansoprazole [Prevacid] 15 mg PO DAILY 03/31/18 Aspirin [Aspirin, Baby] 81 mg PO DAILY@0800 #30 tab.chew 04/01/18 Atorvastatin Calcium [Lipitor] 80 mg PO QHS tablet 04/01/18 The following prescriptions were given: Aspirin [Aspirin, Baby] 81 mg PO DAILY@0800 #30 tab.chew Please follow up with your Primary Care Physician in: 1-2 weeks Test Results: Test results from this visit will be discussed in further detail at your follow-up appointment, if applicable. Proposed Discharge Date: 04/01/18 04/01/18 1650 <Electronically signed by Jeffery Dominguez MD> Date Jeffery Dominguez MD CC: Tyler Rivera MD; Fernando Mock DO HEMOGLOBIN A1C Collected: 04/01/2018 Status: F Source: [place] 3:05 PM [facility] REPOSITORY TYPE CODE TESTS RESULT OUT OF RANGE REFERENCE UNITS LAB L501.9985 4.2-6.3 % Normal HGB A1C 5.4 Performed By: #### L501.9985 #### [facility] [address] [place], [place], [id number] PROTEIN C DEFIC. Collected: 04/01/2018 Status: F Source: [facility] 3:05 PM [facility] REPOSITORY TYPE CODE TESTS RESULT OUT OF RANGE REFERENCE UNITS LAB L3100.7310 60-150 % Normal PROTEIN C 86 Performed By: #### L3100.7275, L3100.7325, L3100.8410, L3300.0450, L3410.2000, L4500.2000, L4500.5000 #### [facility] (refer to report for specific site) refer to report for address and phone number PROTEIN C, FUNCTIONAL Collected: 04/01/2018 Status: F Source: [place] 3:05 PM [facility] REPOSITORY TYPE CODE TESTS RESULT OUT OF RANGE REFERENCE UNITS LAB L3100.7325 73-180 % Normal PROT C, 129 Funct Performed By: #### L3100.7275, L3100.7325, L3100.8410, L3300.0450, L3410.2000, L4500.2000, L4500.5000 #### [facility] (refer to report for specific site) refer to report for address and phone number ANTICARDIOLIPIN IGG, IGM Collected: 04/01/2018 Status: F Source: [place] 3:05 PM [facility] REPOSITORY TYPE CODE TESTS RESULT OUT OF RANGE REFERENCE UNITS LAB L3100.8420 0-14 GPL U/mL Normal ANTICARDIO IgG 12 Result Comment: Serum is slightly lipemic. Negative: <15 Indeterminate: 15 - 20 Low-Med Positive: >20 - 80 High Positive: >80 LAB L3100.8425 0-12 MPL U/mL ANTICARDIO High IgM 44 Result Comment: Serum is slightly lipemic. Negative: <13 Indeterminate: 13 - 20 Low-Med Positive: >20 - 80 High Positive: >80 Performed By: #### L3100.7275, L3100.7325, L3100.8410, L3300.0450, L3410.2000, L4500.2000, L4500.5000 #### [facility] (refer to report for specific site) refer to report for address and phone number AT [facility] / Collected: 04/01/2018 Status: F Source: [place] I[place] 3:05 PM [facility] REPOSITORY TYPE CODE TESTS RESULT OUT OF REFERENCE UNITS RANGE LAB L3300.0500 75-135 % High AT3 FUNCTION 142 Result Comment: An elevated antithrombin activity is of no known clinical significance. Direct Xa inhibitor anticoagulants such as rivaroxaban, apixaban and edoxaban will lead to spuriously elevated antithrombin activity levels possibly masking a deficiency. LAB L3300.0540 72-124 % Normal AT3 AG, IMMUNOL 118 Result Comment: This test was developed and its performance characteristics determined by [facility]. It has not been cleared or approved by the Food and Drug Administration. Performed By: #### L3100.7275, L3100.7325, L3100.8410, L3300.0450, L3410.2000, L4500.2000, L4500.5000 #### [facility] (refer to report for specific site) refer to report for address and phone number BETA-2 GLYCOPROT IGG, Collected: 04/01/2018 Status: F Source: [place] 3:05 PM [facility] REPOSITORY TYPE CODE TESTS RESULT OUT OF RANGE REFERENCE UNITS LAB L3410.2100 0-20 Normal B2 GLYCO <9 I IGG Result Comment: Result Units: GPI IgG units The reference interval reflects a 3SD or 99th percentile interval, which is thought to represent a potentially clinically significant result in accordance with the International Consensus Statement on the classification criteria for definitive antiphospholipid syndrome (APS). J Thromb Haem 2006;4:295-306. LAB L3410.2200 0-25 Normal B2 GLYCO I IGA <9 Result Comment: Result Units: GPI IgA units The reference interval reflects a 3SD or 99th percentile interval, which is thought to represent a potentially clinically significant result in accordance with the International Consensus Statement on the classification criteria for definitive antiphospholipid syndrome (APS). J Thromb Haem 2006;4:295-306. LAB L3410.2300 0-32 Normal B2 GLYCO I IGM <9 Result Comment: Result Units: GPI IgM units The reference interval reflects a 3SD or 99th percentile interval, which is thought to represent a potentially clinically significant result in accordance with the International Consensus Statement on the classification criteria for definitive antiphospholipid syndrome (APS). J Thromb Haem 2006;4:295-306. Performed By: #### L3100.7275, L3100.7325, L3100.8410, L3300.0450, L3410.2000, L4500.2000, L4500.5000 #### [facility] (refer to report for specific site) refer to report for address and phone number FACTOR II, DNA Collected: 04/01/2018 Status: F Source: [place] ANALYSIS 3:05 PM [facility] REPOSITORY TYPE CODE TESTS RESULT OUT OF RANGE REFERENCE UNITS LAB L4500.2100 . Normal FACTOR Comment II,DNA Result Comment: NEGATIVE No mutation identified. Comment: A point mutation ([id number]) in the factor II (prothrombin) gene is the second most common cause of inherited thrombophilia. The incidence of this mutation in the [place] population is about 2% and in the population it is approximately 0.5%. This mutation is rare in the and population. Being heterozygous for a prothrombin mutation increases the risk for developing venous thrombosis about 2 to 3 times above the general population risk. Being homozygous for the prothrombin gene mutation increases the relative risk for venous thrombosis further, although it is not yet known how much further the risk is increased. In women heterozygous for the prothrombin gene mutation, the use of estrogen containing oral contraceptives increases the relative risk of venous thrombosis about 16 times and the risk of developing cerebral thrombosis is also significantly increased. In the prothrombin gene mutation increases risk for venous thrombosis and may increase risk for stillbirth, placental abruption, pre-eclampsia and growth restriction. If the patient possesses two or more congenital or acquired thrombophilic risk factors, the risk for thrombosis may rise to more than the sum of the risk ratios for the individual mutations. This assay detects only the prothrombin L07477G mutation and does not measure genetic abnormalities elsewhere in the genome. Other thrombotic risk factors may be pursued through systematic clinical laboratory analysis. These factors include the R506Q (Leiden) mutation in the Factor V gene, plasma homocysteine levels, as well as testing for deficiencies of antithrombin III, protein C and protein S. Genetic Counselors are available for health care providers to discuss results at [phone] ([id number]). Methodology: DNA analysis of the Factor II gene was performed by PCR amplification followed by restriction analysis. The diagnostic sensitivity is >99% for both. All the tests must be combined with clinical information for the most accurate interpretation. Molecular-based testing is highly accurate, but as in any laboratory test, diagnostic errors may occur. This test was developed and its performance characteristics determined by [employer]. It has not been cleared or approved by the Food and Drug Administration. Poort SR, et al. Blood. 1996; 88:7944-0384. Claudette BHAKTA. Circulation. 2004; 110:e15-e18. Kera I, et al. Arterioscler Thromb Vasc Biol. 1999; 19:700-703. Felicia Can, PhD, FACMG Mary Quevedo, PhD, FACMG Karina JettS., PhD, FACMG Florence Diop, PhD, FACMG Juan Jose Simons, PhD, FAC Alistair Vazquez, PhD, FAC Performed at: [facility] Lab[address] [id number] Support Manager: Feliciano Miller MD, Phone: [phone] Performed at: [address] [id number] Support Manager: Josué Mc PhD, Phone: [phone] Performed at: [facility] [address] [place], [place] [id number] Support Manager: Ayden Lua MD, Phone: [phone] Performed By: #### G3791.9343, N7817.1087, B4527.5926, L3190.6170, L3410.2000, L4500.2000, L4500.5000 #### [facility] (refer to report for specific site) refer to report for address and phone number SHAHRIAR ELDER Collected: 04/01/2018 Status: F Source: [place] MUT[place] 3:05 PM [facility] REPOSITORY TYPE CODE TESTS RESULT OUT OF RANGE REFERENCE UNITS LAB L4500.5100 . Normal FACTOR V Comment LEIDEN Result Comment: Result: Negative (no mutation found) Factor V Leiden is a specific mutation (R506Q) in the factor V gene that is associated with an increased risk of venous thrombosis. Factor V Leiden is more resistant to inactivation by activated protein C. As a result, factor V persists in the circulation leading to a mild hyper- coagulable state. The Leiden mutation accounts for 90% - 95% of APC resistance. Factor V Leiden has been reported in patients with deep vein thrombosis, pulmonary embolus, central retinal vein occlusion, cerebral sinus thrombosis and hepatic vein thrombosis. Other risk factors to be considered in the workup for venous thrombosis include the G85582B mutation in the factor II (prothrombin) gene, protein S and C deficiency, and antithrombin deficiencies. Anticardiolipin antibody and lupus anticoagulant analysis may be appropriate for certain patients, as well as homocysteine levels. Contact your local [facility] for information on how to order additional testing if desired. Genetic counselors are available for health care providers to discuss results at [phone] ([phone]). Methodology: DNA analysis of the Factor V gene was performed by allele- specific PCR. The diagnostic sensitivity and specificity is >99% for both. Molecular-based testing is highly accurate, but as in any laboratory test, diagnostic errors may occur. All test results must be combined with clinical information for the most accurate interpretation. This test was developed and its performance characteristics determined by [facility]. It has not been cleared or approved by the Food and Drug Administration. References: Angelique Jim (1996). Clin Lab Med 16:169-186. Felicia Can, PhD, FAC Mary Quevedo, PhD, FAC Suma Swift MWilmaS., PhD, FACMG Florence Diop, PhD, FAC Juan Jose Simons, PhD, [facility] Alistair Vazquez PhD, [facility] Performed By: #### L3100.7240, L3100.7398, L3100.8410, L3300.0450, L3410.2000, L4500.2000, L4500.5000 #### [facility] (refer to report for specific site) refer to report for address and phone number MISCELLANEOUS LAB Collected: 04/01/2018 Status: F Source: [place] PROCEDURE 3:05 PM [facility] REPOSITORY Order Comment: Comments: dRVVT (dilute Josh viper venom time) TYPE CODE TESTS RESULT OUT OF RANGE REFERENCE UNITS LAB L801.1541 Normal [facility] TEST Result Comment: TEST RESULT FLAG UNITS REF INTERVAL Dilute Josh's Viper Venom DRVVT Screen Seconds 76.7 High sec Reference Range: <= 47.0 DRVVT Confirm Seconds 58.6 sec DRVVT Ratio 1.2 ratio Reference Range: 0.8 - 1.2 TESTING PERFORMED AT [facility]. ORIGINAL REPORT ON FILE IN LAB CONTAINS ADDITIONAL TEST SITE INFORMATION. Performed By: #### L801.1541 #### [facility] [address] [place], [address] CTA NECK W/WO Observed: 04/01/2018 Status: F Source: [place] CONTRAST 2:19 PM [facility] REPOSITORY [facility] Imaging Services [address] [place] [address] CTA Neck W/WO Contrast MR#: [id number] Acct: [id number] Name: SHAILA STOLL Rep #: [id number] : 1950 M 67 From: Chacho Babcock MD PCP: Fernando Mock DO Status: ADM SHYLA Study: CTA Neck W/WO Contrast Date of Exam: 04/01/18 Exam# [id number] Ordering Dr: Andreea Rivera MD STUDY: CTA NECK WITH CONTRAST REASON FOR EXAM: Male, 67 years old. Left arm pain and chest pain. History of non-small cell carcinoma and prostate carcinoma. RADIATION DOSAGE (If Supplied By Facility): CTDIvol = ( 30.31 ) mGy, DLP = ( 1583.04 ) mGycm TECHNIQUE: CT angiography with multi-detector data acquisition was performed from the aortic arch to the skull base following intravenous administration of 100 ml of Isovue 370 contrast. MIP images were reconstructed from the axial data set. Post-processing of the angiographic images was performed, with multiplanar reformation and 3D reconstruction. Individualized dose optimization techniques were used for this CT. COMPARISON: None. FINDINGS: Mediastinal adenopathy. AORTIC ARCH: Normal visualized aortic arch. Focal plaque formation at the origin of the left common carotid artery. RIGHT CAROTID ARTERIES: Normal right common carotid artery (CCA). Normal right common carotid bulb. Minimal atherosclerotic plaque at the carotid bulb. Normal visualized cervical portion of the right internal carotid artery. Normal origin of the right external carotid artery (ECA). LEFT CAROTID ARTERIES: Normal left common carotid artery (CCA). Normal left common carotid bulb. Focal complex plaque at the carotid bifurcation. Focal complex plaque at the origin of the left internal carotid artery causing less than 50% luminal narrowing. Normal visualized cervical portion of the left internal carotid artery. Normal origin of the left external carotid artery (ECA). VERTEBRAL ARTERIES: There is enhancement within the bilateral vertebral arteries with a small left vertebral artery, and a dominant right vertebral artery. CT/CTA Neck W/WO Contrast IMPRESSION: Minimal plaque at the carotid bifurcations. Focal calcific plaque in the proximal portion of the left internal carotid artery. This has a complex appearance. Electronically Signed: Chacho Babcock MD at 15:54 EDT Tel [phone], Service support , CC: Tyler Rivera MD; Fernando Mock DO Flash Ranging Crewmember: Signed CTA HEAD W/WO Observed: 04/01/2018 Status: F Source: [place] CONTRAST 2:19 PM [facility] REPOSITORY [facility] Imaging Services [address] [place] [id number] CTA Head W/WO Contrast MR#: [id number] Acct: [id number] Name: SHAILA STOLL Rep #: [id number] : 1950 M 67 From: Chacho Babcock MD PCP: Fernando Mock, DO Status: ADM SHYLA Study: CTA Head W/WO Contrast Date of Exam: 04/01/18 Exam# [id number] Ordering Dr: Andreea Rivera MD STUDY: CTA OF THE BRAIN REASON FOR EXAM: Male, 67 years old. Chest pain and left arm pain. RADIATION DOSAGE (If Supplied By Facility): CTDIvol = ( 30.31 ) mGy, DLP = ( 1583.04 ) mGycm TECHNIQUE: CT angiography was performed with a multi-detector CT scanner. Data acquisition was obtained from the skull base through the vertex following intravenous administration of 100 ml of Isovue-370. MIP images were reconstructed from the axial data set. Post-processing of the angiographic images was performed, with multiplanar reformation and 3D reconstruction. Individualized dose optimization techniques were used for this CT. COMPARISON: None. FINDINGS: Normal bilateral petrous carotid arteries. Normal right cavernous carotid artery with a normal supraclinoid bifurcation. Normal left cavernous carotid artery with a normal supraclinoid bifurcation. Normal right A1 segments of the anterior cerebral artery. Normal left A1 segments of the anterior cerebral artery. Normal intact anterior communicating artery (ACOM). Normal bilateral A2 segments of the anterior cerebral arteries. Normal right M1 and M2 segments of the middle cerebral arteries, with a normal M1 bifurcation. Normal left M1 and M2 segments of the middle cerebral arteries, with a normal M1 bifurcation. Normal right posterior communicating artery (PCOM). Normal left posterior communicating artery (PCOM). Normal bilateral vertebral arteries. Normal basilar artery with a normal basilar bifurcation. The visualized bilateral superior cerebellar (SCA) arteries are normal. Normal bilateral P1, P2 and visualized P3 segments of the posterior cerebral arteries. There is no demonstrated aneurysm of the [place] of [place]. Partial opacification of the inferior aspect of the right maxillary sinus. CT/CTA Head W/WO Contrast IMPRESSION: Normal [place] of [place] without a demonstrated aneurysm or hemodynamically significant stenosis. Electronically Signed: Chacho Babcock MD at 15:55 EDT Tel [phone], Service support , CC: Tyler Rivera MD; Fernando Mock DO Flash Ranging Crewmember: Signed ECHOCARDIOGRAM COMPLETE Observed: 04/01/2018 Status: F Source: [place] 1:31 PM [facility] REPOSITORY [facility] Cardiovascular Services [address] [place] [address] Echo Complete 04/01/18 0928 MR#: [id number] Acct: [id number] Name: SHAILA STOLL Rep #: [id number] : 1950 67 From: Kash Rollins MD Attending Dr: Jeffery Dominguez M.D. Status: ADM SHYLA Ordering Dr: Trung Reed MD Date: 04/01/18 Location: [facility] Sex: M C Admitted: 03/31/18 Reason For Study: Chest Pain Procedure This was a 2D Doppler, Color Flow transthoracic echocardiogram. The study was technically difficult. Exam performed portable in patient room. Left Ventricle Normal LV size. Left ventricular systolic function is normal. The estimated ejection fraction is 65 %. Diastolic function is indeterminate. No regional wall motion abnormalities noted. Right Ventricle Normal RV size. Normal systolic function. Atria The left atrium is mildly enlarged. Normal right atrium. No doppler evidence for ASD. Bubble contrast study negative for right to left interatrial shunt. Mitral Valve There is no mitral annular calcification. Normal mitral valve. Trivial mitral valve insufficiency. Tricuspid Valve Normal tricuspid valve. Trivial tricuspid valve insufficiency. Unable to estimate RV systolic pressure/pulmonary artery pressure due to technically difficult study. Aortic Valve Trisinus/trileaflet aortic valve. Normal aortic valve. Pulmonic Valve The pulmonic valve is not well visualized. Trivial pulmonic valve insufficiency. Great Vessels Normal sized aortic root. Pericardium/Pleural No pericardial effusion. Medication Performed a rapid injection of agitated mix of 9 cc saline and 1cc air to assess for atrial septal defect. MMode/2D Measurements AND Calculations LVIDd: 3.6 cm IVSd: 1.1 cm Ao root diam: 3.2 cm LVIDs: 2.3 cm LVPWd: 1.1 cm LA dimension: 3.8 cm FS: 35.4 % LAV(MOD-sp4): 55.4 ml LA A4 area: 20.5 cm2 RA A4 area: 19.9 cm2 Time Measurements MV dec time: 0.21 sec Doppler Measurements AND Calculations MV E max rabia: 70.8 cm/sec Lat Peak E' Rabia: 10.8 cm/sec Med Peak E' Rabia: 7.0 cm/sec MV A max rabia: 77.6 cm/sec E/E' lat: 6.5 E/E' med: 10.1 MV E/A: 0.91 MV V2 max: 93.4 cm/sec MV P1/2t max rabia: 92.5 cm/sec Ao V2 max: 171.8 cm/sec MV max P.5 mmHg MV P1/2t: 61.7 msec Ao max P.8 mmHg MV V2 mean: 55.1 cm/sec MV dec slope: 439.1 cm/sec2 Ao V2 mean: 103.9 cm/sec MV mean P.4 mmHg MVA(P1/2t): 3.6 cm2 Ao mean P.0 mmHg MV V2 VTI: 24.9 cm Ao V2 VTI: 29.2 cm LV V1 max: 143.0 cm/sec PA V2 max: 99.2 cm/sec LV V1 max P.2 mmHg LV V1 mean P.4 mmHg LV V1 mean: 84.9 cm/sec LV V1 VTI: 26.2 cm Interpretation Summary The study was technically difficult. Left ventricular systolic function is normal. The estimated ejection fraction is 65 %. The left atrium is mildly enlarged. Trivial mitral valve insufficiency. Trivial tricuspid valve insufficiency. Trivial pulmonic valve insufficiency. Unable to estimate RV systolic pressure/pulmonary artery pressure due to technically difficult study. Ordering Physician: Trung Reed Referring Physician: TISHA AMARO Performed By: Duy Buckner RCS 04/01/181329 Date Kash Rollins MD CC: Fernando Mock DO; Jeffery Dominguez M.D.; Trung Reed MD Date Dictated: 04/01/18927 Date Transcribed: 04/01/181329 Flash Ranging Crewmember: Signed BASIC METABOLIC Collected: 04/01/2018 Status: F Source: [place] PROFILE (BMP) 5:38 AM [facility] REPOSITORY TYPE CODE TESTS RESULT OUT OF RANGE REFERENCE UNITS LAB L501.0100 74-106 mg/dL Normal GLU 93 Result Comment: Please note revised GLUCOSE reference range effective 2017. LAB L501.1000 7-18 mg/dL High BUN 19 LAB L501.1100 0.70-1.30 mg/dL Normal CREAT,SERUM 1.23 Result Comment: The validity of the calculated GFR AND GFRAA in patients over 70 years has not been determined. Clinical correlation is essential. LAB L501.1110 >60 mL/min Normal EST GFR 63 Result Comment: Non- GFR Calc LAB L501.1115 >60 mL/min Normal EST GFR - AA 76 Result Comment: GFR Calc LAB L501.1255 ml/min Normal Estimated CRCL 61.82 LAB L501.1300 10-20 RATIO Normal BUN/CRE 15.4 LAB L501.2200 8.5-10 mg/dL Normal .1 CA 8.9 LAB L501.5300 136-14 mmol/L Normal 5 NA 139 LAB L501.5600 3.5-5. mmol/L Normal 1 K 4.1 LAB L501.5900 98-107 mmol/L Normal CL 107 LAB L501.6100 21.0-3 mmol/L Normal 2.0 CO2 24.0 LAB L501.6200 5-15 Normal GAP 8 Performed By: #### L500.2500 #### [facility] [address] [place], [address] BRAIN WITHOUT Observed: 04/01/2018 Status: F Source: [place] CONTRAST 12:00 AM [facility] [place] REPOSITORY [facility] Imaging Services [address] [place] [address] Brain without Contrast MR#: [id number] Acct: [id number] Name: JERMANSHAILA Davi Rep #: [id number] : 1950 M 67 From: Lee Chavez MD PCP: Fernando Mock DO Status: ADM SHLYA Study: Brain without Contrast Date of Exam: 04/01/18 Exam# [id number] Ordering Dr: Trung Reed MD ADDENDUM by Lee Chavez M.D. on 04/01/18 at 1449 MRI/Brain without Contrast 04/01/18 1456 Date cc: Fernando Mock DO; Trung Reed MD * Signed ADDENDUM by Lee Chavez M.D. on 04/01/18 at 1449 ADDENDUM COMPARED TO MRI OF THE BRAIN 05/29/2017. CONCLUSION: 1. Suspicious acute microembolic infarcts in the central lobe convexities (3 on the left and one on the right) and in both occipital lobes (2 on the left and one on the right). These were not present previously. Follow-up MRI DWI sequence in 24 hours will help confirm/clarify. 2. Chronic white matter ischemic changes in both cerebral hemispheres are unchanged. Electronically Signed: Lee Chavez MD at 14:49 EDT , Service support , N.B. : The above information has been verbally conveyed by Lee Chavez MD to Thea Denny RN, Hospital- In-Patient RN, on 04/01/2018 09:09:53 (ET). 04/01/18 1449 Date cc: Fernando Mock DO; Trung Reed MD * Signed STUDY: MRI BRAIN WITHOUT CONTRAST REASON FOR EXAM: Male, 67 years old. Right arm weakness and left arm pain. Symptoms resolved. History of prostate carcinoma, lung carcinoma and MS. TECHNIQUE: Standardized multiplanar fat and water weighted pulse sequences were obtained. COMPARISON: 05/29/2017. CT head without contrast 03/31/2018. FINDINGS: 4 punctate restricted diffusion, 3 in the left central lobe convexity and one in the right central lobe convexity (series 4, image 25). There are also 3 punctate restricted diffusion in the occipital lobes, 2 on the left and one on the right (series 4, images 15-16). They were not present previously and are difficult to confirm on the ADC maps. They remain highly suspicious for acute microembolic infarcts. These are not visible on the T2 FLAIR sequences. Normal size of the ventricles and extra-axial spaces for the patient's age. Multiple subcortical white matter T2 FLAIR hyperintensity foci in both cerebral hemispheres are unchanged. No mass effects and no midline shift. Normal bilateral basal ganglia. Normal thalami. There is no extra-axial fluid accumulation. Normal flow voids within the major intracranial circulation suggesting patency by spin echo criteria. Normal sella turcica, pituitary gland, infundibular stalk, optic chiasm and hypothalamus. Normal tectal plate and pineal gland. Normal midbrain, karena and medulla. Normal cerebellum. Normal basal cisterns. Normal bilateral temporal bones. Normal bilateral internal auditory canals. No demonstrated orbital abnormality, within the constraints of a routine brain study. Normal visualized paranasal sinuses. Normal calvarium and skull base. Normal visualized soft tissue structures. Normal visualized upper cervical spine. OPINION: 1. Suspicious acute microembolic infarcts in the central lobe convexities (3 on the left and one on the right) and in both occipital lobes (2 on the left and one on the right). Follow-up MRI DWI sequence in 24 hours will help confirm/clarify. 2. Chronic white matter ischemic changes in both cerebral hemispheres are unchanged. N.B. : The above information has been verbally conveyed by Lee Chavez MD to Thea Denny RN, Hospital- In-Patient RN, on 04/01/2018 09:09:53 (ET). Electronically Signed: Lee Chavez MD at 8:51 EDT , Service support , MRI/Brain without Contrast CC: Fernando Mock DO; Trung Reed MD Flash Ranging Crewmember: Signed EMERGENCY DEPARTMENT Observed: 03/31/2018 Status: F Source: [place] SUMMARY 9:46 PM [facility] REPOSITORY [facility] Medical Records Department [address] [place] [address] Emergency Department Summary 03/31/18 1537 MR#: [id number] Acct: [id number] Name: SHAILA STOLL Rep #: [id number] : 1950 67 From: Hanna Vega MD PCP: Fernando Mock, DO Status: ADM SHYLA - ER Visit Summary Date of Service: 03/31/18 Chief Complaint: Chest pain, right arm weakness History of Present Illness: The patient is a 67 M presenting with chest pain and right arm weakness. He states the chest pain occurred yesterday. He states the pain was substernal radiating to his left arm. It lasted 10 minutes. There was associated shortness of breath. He has not had any chest pain today. Today he states he went to grab something and was unable to use his right arm. He complains of right arm weakness and numbness which lasted 10-20 minutes. He denies visual or speech changes. Denies confusion. Denies other complaints. He has a history of MS, hypertension, hypercholesterolemia, previous lung cancer, prior DVT. He is on Eliquis. His symptoms have now resolved. Physical Examination: Vitals are stable. Patient is afebrile. Alert no acute distress. HEENT exam is unremarkable. Neck is supple. Lungs are clear and equal bilaterally. Heart is regular rate and rhythm. Abdomen is soft nontender nondistended. Extremities are unremarkable. Skin is warm and dry. No focal neurologic deficit. NIH 0. Remainder of exam is unremarkable. Emergency Department Course and Treatment: EKG is sinus rate of 77 with no acute ischemic changes. He was given aspirin on arrival. He is chest pain- free in the emergency department. CBC showed hemoglobin 11.2. Chemistries show BUN 20, creatinine 1.33. Troponin is indeterminate 0.365. CTA chest shows emboli are demonstrated in the proximal right lower lobe pulmonary artery. There may be a chronic component as emboli were also seen in this region on the prior study of October 02, 2017. Mediastinal adenopathy, appearing similar to the previous study. There are several small calcified granulomas of the right upper lobe. There is left lower lobe hemithoracic pleural thickening, stable in the interval. There is a small focus of left basilar consolidation, also unchanged from the previous study. CT head shows chronic changes. His chest pain and right arm weakness have resolved. Will discuss with the hospitalist for admission. Disposition: Admission Impression: Chest pain, indeterminate troponin, chronic PE, TIA This note was generated with [employer] dictation software. It may contain incorrect words, spelling, and punctuation that were not noted in review of the chart prior to signing ED Disposition - Plan for ED Patient: Chief Complaint: Chest Pain Referrals: Fernando Mock, DO [Primary Care Provider] - What to do if you have Problems For any increased pain, shortness of breath, bleeding, nausea or vomiting, chest pain, or any unexpected problems, contact your Primary Care Provider. Call [facility] ([phone]) or report to the closest Emergency Room. Call 911 if necessary. 03/31/182145 <Electronically signed by Hanna Vega MD> Date Hanna Vega MD Cosigner Signature (If Indicated): Date CC: Fernando Mock DO TROPONIN-I Collected: 03/31/2018 Status: F Source: [place] 9:22 PM [facility] REPOSITORY Order Comment: 'TROP' Serial specimen #1, #2 or #3: 3 TYPE CODE TESTS RESULT OUT OF RANGE REFERENCE UNITS LAB L501.4010 <0.045 ng/mL High 0.427 TROPONIN-I Result Comment: TROPONIN-I EXPECTED VALUES <0.045 Negative 0.045 - 0.590 Consistent with Cardiac Damage > OR = 0.600 Critical Value Not every elevated troponin is indicative of IL. These values should be used with clinical judgement in examining the patient's clinical picture for diagnosis. To establish a diagnosis of IL versus myocardial injury, there must be a demonstrated rise and/or fall in the troponin values, in addition to ischemic symptoms, EKG changes, new regional wall motion abnormality, and/or angiographical evidence. PLEASE NOTE: REFERENCE RANGES EDITED 17 Performed By: #### L501.4010 #### [facility] [address] [place], [address] LIPID PROFILE Collected: 03/31/2018 Status: F Source: [place] 6:50 PM [facility] REPOSITORY Order Comment: 'TROP' Serial specimen #1, #2 or #3: 2 TYPE CODE TESTS RESULT OUT OF RANGE REFERENCE UNITS LAB L501.4900 200 mg/dL High CHOL 228 Result Comment: <200 mg/dL Desirable 200-240 mg/dL Borderline >240 mg/dL High Risk LAB L501.5000 mg/dL High TRIG 254 Result Comment: The drugs N-Acetylcysteine and Metamizole may falsely depress this assay. Serum Triglycerides Reference Interval Normal <150 mg/dL Borderline high 150 - 199 mg/dL High 200 - 499 mg/dL Very High > or = 500 mg/dL LAB L501.6400 mg/dL Low HDL 34 Result Comment: The drugs N-Acetylcysteine and Metamizole may falsely depress this assay. Reference Range HDL <40 mg/dL Low HDL Cholesterol HDL >or= 60 mg/dL High HDL Cholesterol LAB L501.6500 0-130 mg/dL High LDL 143 LAB L501.6600 5-40 mg/dL High VLDL 51 Performed By: #### L500.4100, L501.4010 #### [facility] [address] [place], [address] TROPONIN-I Collected: 03/31/2018 Status: F Source: [place] 6:50 PM [facility] REPOSITORY Order Comment: 'TROP' Serial specimen #1, #2 or #3: 2 TYPE CODE TESTS RESULT OUT OF RANGE REFERENCE UNITS LAB L501.4010 <0.045 ng/mL High 0.436 TROPONIN-I Result Comment: TROPONIN-I EXPECTED VALUES <0.045 Negative 0.045 - 0.590 Consistent with Cardiac Damage > OR = 0.600 Critical Value Not every elevated troponin is indicative of IL. These values should be used with clinical judgement in examining the patient's clinical picture for diagnosis. To establish a diagnosis of IL versus myocardial injury, there must be a demonstrated rise and/or fall in the troponin values, in addition to ischemic symptoms, EKG changes, new regional wall motion abnormality, and/or angiographical evidence. PLEASE NOTE: REFERENCE RANGES EDITED 18 Performed By: #### L500.4100, L501.4010 #### [facility] [address] [place], [address] HISTORY AND PHYSICAL Observed: 03/31/2018 Status: F Source: [place] EXAM 6:28 PM [facility] [place] REPOSITORY [facility] Medical Records Department [address] [place] [address] History and Physical 03/31/18 1731 MR#: [id number] Acct: [id number] Name: SHAILA STOLL Rep #: [id number] : 1950 67 From: Nakul MORALES PCP: Fernando Mock, DO Status: ADM SHYLA Y Location: [place] [address]-1 <Nakul Huston - Last Filed: 03/31/18 17:45> Problem List (1) CVA (cerebral vascular accident) Status: Acute (2) Elevated troponin Status: Acute (3) Prostate cancer Status: Chronic Comment: surgery , R.T. 2015 PSA relapse 2016 ADT (4) Multiple sclerosis Status: Chronic Comment: left leg weakness (5) Cancer of lower lobe of left lung Status: Chronic (6) Regional lymph node metastasis present Status: Chronic (7) Anemia Status: Chronic (8) Pulmonary embolism Status: Chronic (9) Hyperlipidemia Status: Chronic (10) Hypertension Status: Chronic History of Present Illness Date of Admission: 03/31/18 Chief Complaint: chest pain The patient is a 67 year old M with a hx of NSCLC - adenocarcinoma, pt of Dr. Leger, known PE, prostate CA, HLD, HTN, GERD, and MS who presented to the ER with c/o right arm weakness and loss of coordination. He states that he was in his car parked on the side of the road and went to reach for his coffee in the center console, but missed and was unable to work his arm correctly. It felt weak and there was some numbness. He thinks the sensation did last for about 15 minutes before mostly resolving. He did still have some weakness when he came to the ER. Currently has no complaints. He denies double vision, dizziness, LH, facial droop, and slurred speech, no weakness in LE. His did not notice any either. He is also concerned because he had midsternal Chest pain intermittently over the past week, most recently yesterday. He states this pain is midsternal and radiates into his back and left arm. He does have some SOB but this is chronic. He had no dizziness or LH. Currently he has no chest pain. CTA shows known lung cancer, adenopathy, and emboli. EKG negative. CT brain with chronic changes. [] Past Medical History Past Medical History (Chronic Problems): Chronic Problems (Last Reviewed 03/16/18 @ 11:12 by Zenobia Hillman) Prostate cancer (Chronic) surgery , R.T. 2015 PSA relapse 2016 ADT Multiple sclerosis (Chronic) left leg weakness Cancer of lower lobe of left lung (Chronic) Regional lymph node metastasis present (Chronic) Anemia (Chronic) Pulmonary embolism (Chronic) Adenocarcinoma of lung (Chronic) Hyperlipidemia (Chronic) Hypertension (Chronic) 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) [facility] 07/03/17 Medical History: Medical History (Last Reviewed 03/16/18 @ 11:12 by Zenobia Hillman) Viral pharyngitis (Acute) J02.9 Nasopharyngitis (Acute) J00 Limb weakness (Acute) R29.898 unusual tierdness (Acute) Sinusitis (Acute) J32.9 SOB (shortness of breath) (Acute) R06.02 Dyspnea (Acute) R06.00 Adenocarcinoma of lung (Chronic) C34.90 Hyperlipidemia (Chronic) E78.5 Hypertension (Chronic) I10 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) [facility] 07/03/17 LYMPH NODE REMOVAL-CHEST (Acute) [facility] 07/03/17 BLOOD CLOT LUNGS Deep vein blood clot of left lower extremity I82.402 Deep vein blood clot of right lower extremity I82.401 Allergies morphine Adverse Reaction (Intermediate, Verified 03/31/18 15:09) MAKES HIS NAUSEATED AND SICK Home Medications: Ambulatory Orders Medication Instructions Recorded Lupron Depot mg IM UD 10/02/17 Apixaban [Eliquis] 5 mg PO BID #60 tab.ds.pk 10/04/17 Bisprolol Fumarate 10 mg PO DAILY 11/03/17 Surgical History: Surgical History (Last Reviewed 03/16/18 @ 11:12 by Zenobia Hillman) History of prostatectomy (Acute) Z98.890, Z90.79 Surgical History: - Lives: Spouse/ Significant Other Smoking Status: Former smoker Tobacco Use: Non-smoker Alcohol: None Drugs: None - *Family History maternal Family History: Family History (Last Reviewed 03/31/18 @ 17:39 by CARMEN Metcalf) Father Prostate cancer Liver cancer Liver disease Mother Bone cancer Maternal Family History: Family History (Last Reviewed 03/31/18 @ 17:39 by CARMEN Metcalf) Father Prostate cancer Liver cancer Liver disease Mother Bone cancer Review of Systems Constitutional: Denies: Chills, Fever, Weight Change HEENT: Denies: Head Aches, Sinus Congestion, Sinus Drainage Cardiovascular: Reports: Chest Pain. Denies: Palpitations Respiratory: Reports: Shortness of Breath. Denies: Cough, Shortness of breath at rest, Sputum production Gastrointestinal: Denies: Abdominal Pain, Nausea, Vomiting Genitourinary: Denies: Dysuria Musculoskeletal: Denies: Joint Pain, Joint Tenderness Skin: Denies: Rash, Wounds Neurological: Denies: Numbness, Tingling, Focal weakness Psychiatric: Denies: Anxiety, Depression, Homicidal Ideations, Suicidal Ideations Hematologic/ Lymphatic: Denies: Easy Bruising, Easy Bleeding VTE Information - Inpt Only VTE Present on Admission: Yes VTE Mechan Device Prophylaxis: None VTE Pharm Prophylaxis ordered?: Yes Patient Problems: Active and Suspected Problems (Last Reviewed 03/16/18 @ 11:12 by Zenobia Hillman) CVA (cerebral vascular accident) (Acute) Elevated troponin (Acute) - Physical Exam General: Alert, Oriented x3, Cooperative HEENT: Atraumatic, PERRLA, EOMI, Normocephalic Neck: Supple, No JVD, Negative Carotid Bruits Lungs: Clear to auscultation, Normal air movement Cardiovascular: Regular rate, No murmurs Abdomen: Bowel Sounds Present, Soft, Non Tender Extremities: No edema, Capillary Refill Less than 3 Seconds Skin: No rashes, No breakdown Musculoskeletal: No Tenderness to Palpation of Joints or Extremities Neurological: Cranial nerves II-XII grossly intact, - - no difficulty with pronator drift, cephalometric tracer strength, upper/lower ext strength, point to point, rapid alternating movements, or sensation testing. Psych/Mental Status: Normal Affect, Appropriate, Alert and oriented to time, place, person, mood and affect Vital Signs Temp Pulse Resp BP Pulse Ox 98.2 F 69 18 178/90 H 98 03/31/18 15:06 03/31/18 17:23 03/31/18 17:23 03/31/18 17:23 03/31/18 17:23 Oxygen Delivery Method Room Air Weight: 200 lb Body Mass Index (BMI) 28.7 Laboratory Tests Past 24 Hrs WBC 6.1 RBC 3.64 L Hgb 11.2 L Hct 34.3 L MCV 94.2 H MCH 30.8 MCHC 32.7 RDW 13.4 RDW Differential 46.4 H POC Glucose POC Glucose 113 H Assessment/Plan All Active Problems (Last Reviewed 03/16/18 @ 11:12 by Zenobia Hillman) Educational circumstance (Acute) HCAP (healthcare-associated pneumonia) (Acute) CVA (cerebral vascular accident) (Acute) Elevated troponin (Acute) Viral pharyngitis (Acute) Nasopharyngitis (Acute) Limb weakness (Acute) unusual tierdness (Acute) Sinusitis (Acute) SOB (shortness of breath) (Acute) Dyspnea (Acute) History of prostatectomy (Acute) LYMPH NODE REMOVAL-CHEST (Acute) 1. CVA - transient right arm incoordination, weakness, numbness. Now resolved. negative CT brain. MRI/MRA brain, head, neck, Echocardiogram. BP elevated, permissive. Neuro consult. On eliquis. Not on antiplatelet or statin. PT/OT/ST eval. Neuro exam is benign. 2. Elevated troponin and chest pain - Negative EKG. Repeat EKG in AM, cycle enzymes. Consider cardiology consult. CP currently resolved. Echocardiogram. 3. Known PEs - on eliquis. Respiratory status stable. 4. NSCLC adenocarcinoma and prostate CA - pt of Dr. Leger. On lupron. Prior LL lobectomy, rads, chemo. Concern for mets, mri as above. 5. MS - stable 6. GERD - ppi 7. HTN - permissive. trend. 8. Mild anemia - stable 9. Mildly elevated cr - suspect ckdII-III, does not appear significantly above basleline DVT ppx: on eliquis DC planning: PTOT. This patient was seen by Nakul Huston PA-C under the supervision of Doctor Laci. <Trung Reed F - Last Filed: 03/31/18 18:27> History of Present Illness The patient is a 67 year old M [] Past Medical History Medical History: Medical History (Last Reviewed 03/16/18 @ 11:12 by Zenobia Hillman) Viral pharyngitis (Acute) J02.9 Nasopharyngitis (Acute) J00 Limb weakness (Acute) R29.898 unusual tierdness (Acute) Sinusitis (Acute) J32.9 SOB (shortness of breath) (Acute) R06.02 Dyspnea (Acute) R06.00 Adenocarcinoma of lung (Chronic) C34.90 Hyperlipidemia (Chronic) E78.5 Hypertension (Chronic) I10 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) [facility] 07/03/17 LYMPH NODE REMOVAL-CHEST (Acute) [facility] 07/03/17 BLOOD CLOT LUNGS Deep vein blood clot of left lower extremity I82.402 Deep vein blood clot of right lower extremity I82.401 Allergies morphine Adverse Reaction (Intermediate, Verified 03/31/18 15:09) MAKES HIS NAUSEATED AND SICK Surgical History: Surgical History (Last Reviewed 03/16/18 @ 11:12 by Zenobia Hillman) History of prostatectomy (Acute) Z98.890, Z90.79 - *Family History maternal Family History: Family History (Last Reviewed 03/31/18 @ 17:39 by CARMEN Metcalf) Father Prostate cancer Liver cancer Liver disease Mother Bone cancer Maternal Family History: Family History (Last Reviewed 03/31/18 @ 17:39 by CARMEN Metcalf) Father Prostate cancer Liver cancer Liver disease Mother Bone cancer - Physical Exam Vital Signs Temp Pulse Resp BP Pulse Ox 98.3 F 66 18 169/84 H 99 03/31/18 18:15 03/31/18 18:15 03/31/18 18:15 03/31/18 18:15 03/31/18 18:15 Oxygen Delivery Method Room Air Weight: 198 lb 8 oz Body Mass Index (BMI) 28.5 Assessment/Plan Addendum: Dr. Reed I personally examined the patient and reviewed the chart. I agree with the above. Mr. Gardner is a 67-year-old male with a past medical history significant for left lung adenocarcinoma, chronic pulmonary emboli, and prostate cancer. For the last 3-4 days he has been having intermittent chest pain that radiates to his left arm he says that this chest pain primarily occurs during rest and when he is active he does not have the chest pain. He denies any lightheadedness dizziness. The reason for his presentation to the ER today was specifically was because he had transient right arm weakness. Episode lasted between 10 and 20 minutes. On presentation to the ER CT brain was negative. He did have a slightly elevated troponin to 0.368. General: Alert, Oriented x3, Cooperative, No apparent distress HEENT: Atraumatic, EOMI, Normocephalic Oral: Moist Mucosa Neck: Supple, No JVD Lungs: Clear to auscultation, Normal air movement, No rhonchi, No wheeze, No rales Cardiovascular: Regular rate, Regular Rhythm, Normal S1, Normal S2, No murmurs Abdomen: Soft, Non Tender, Non-Distended, No Hepato-splenomegaly Extremities: No edema, Capillary Refill Less than 3 Seconds Skin: No rashes, No breakdown Musculoskeletal: No Tenderness to Palpation of Joints or Extremities Neurological: Cranial nerves II-XII grossly intact, 5/5 in both UE and RLE, 4/5 on the left lower , Sensory exam intact to light touch and pain Psych/Mental Status: Normal Affect, Appropriate 1. Chest pain/Right UE weakness/MS/Chronic PE - With his transient arm weakness and his chest pain he would benefit from an echo - If there is a stroke on repeat CT head in the morning, he is already on eliquis for his chronic PE - Given bleeding risk, would not add aspirin - Will risk stratify with a lipid panel and start a statin - Trend troponins and repeat ekg in am - This is unlikely to be a flare or pseudoexacerbation of his MS 2. Left lung adenocarcinoma/Prostate cancer - He is stage 2b for the lung cancer - completed chemo for his lung cancer DVT: Eliquis Code Visit Inpatient E AND M: 27933 Init Hosp L3 03/31/181747 <Electronically signed by Nakul MORALES> Date Nakul MORALES 03/31/181827<Electronically signed by Trung Reed MD> Cosigner Signature: Date (if applicable) Trung Reed MD CC: CARMEN Huston; Fernando Mock DO; Trung Reed MD Signed BRAIN/HEAD WITHOUT Observed: 03/31/2018 Status: F Source: [place] CONTR[place] 3:15 PM [facility] REPOSITORY [facility] Imaging Services [address] [place] [address] Brain/Head without Contrast MR#: [id number] Acct: [id number] Name: SHAILA STOLL Rep #: [id number] : 1950 M 67 From: Chacho Babcock MD PCP: Fernando Mock DO Status: REG ER Study: Brain/Head without Contrast Date of Exam: 03/31/18 Exam# [id number] Ordering Dr: Hanna Vega MD STUDY: CT BRAIN WITHOUT CONTRAST REASON FOR EXAM: Male, 67 years old. Left-sided weakness. Left arm pain. RADIATION DOSAGE (If Supplied By Facility): CTDIvol = ( 44.99 ) mGy, DLP = ( 779.24 ) mGycm TECHNIQUE: Transaxial CT imaging of the brain was performed without administration of intravenous contrast material. Individualized dose optimization techniques were used for this CT. COMPARISON: None. FINDINGS: Normal soft tissue structures. Normal calvarium. There is mild cerebral atrophy with widening of the extra- axial spaces and ventricular dilatation. Normal white matter tracts of the cerebral hemispheres. Normal basal ganglia and thalami. Normal brainstem. Normal cerebellum. There is no intracranial hemorrhage. There are no findings of an acute ischemic infarction. Atherosclerotic calcification of the cavernous portions of the internal carotid arteries bilaterally. Partial opacification of the right maxillary sinus. CT/Brain/Head without Contrast IMPRESSION: Chronic involutional changes of the brain. Electronically Signed: Chacho Babcock MD at 16:02 EDT Tel [phone], Service support , CC: Hanna Vega MD; Fernando Mock DO Flash Ranging Crewmember: Signed CTA CHEST W/WO Observed: 03/31/2018 Status: F Source: [place] CONTR[place] 3:15 PM [facility] REPOSITORY [facility] Imaging Services [address] [place] [address] CTA Chest W/WO Contrast MR#: [id number] Acct: [id number] Name: SHAILA STOLL Rep #: [id number] : 1950 67 From: Jonathan Prasad MD PCP: Fernando Mock DO Status: REG ER Study: CTA Chest W/WO Contrast Date of Exam: 03/31/18 Exam# [id number] Ordering Dr: Hanna Vega MD STUDY: CTA CHEST REASON FOR EXAM: Male, 67 years old. Left-sided weakness, left arm and chest pain RADIATION DOSAGE (If Supplied By Facility): CTDIvol = ( 13.54 ) mGy, DLP = ( 595.14 ) mGycm TECHNIQUE: The examination was performed with the intravenous administration of 75mL ml of Isovue 370 contrast material. Post-processing of the angiographic images was performed, with multiplanar reformation and 3D reconstruction. Individualized dose optimization techniques were used for this CT. COMPARISON: Previous study of October 02, 2017 FINDINGS: Normal enhancement of the main pulmonary artery and right and left pulmonary arteries. Emboli are demonstrated in the proximal right lower lobe pulmonary artery. Normal thoracic aorta and visualized great vessels. There is no demonstrated aortic dissection. Normal heart and pericardium. Mediastinal adenopathy is present. The largest mediastinal node is in a left paratracheal location measuring 3.3 x 1.6 cm. These appear similar to the previous study. Normal hilar regions. Normal visualized trachea and bronchi. The lungs are well expanded. There are several small calcified granulomas of the right upper lobe. There is left lower hemithoracic pleural thickening. There is a small focus of left basilar consolidation, unchanged from the previous study. Normal chest wall structures. There are diffuse degenerative changes of the visualized thoracolumbar spine. No lytic or blastic osseous changes are seen. There is hepatic steatosis. CT/CTA Chest W/WO Contrast IMPRESSION: Emboli are demonstrated in the proximal right lower lobe pulmonary artery. There may be a chronic component as emboli were also seen in this region on the prior study of October 02, 2017. Mediastinal adenopathy, appearing similar to the previous study. There are several small calcified granulomas of the right upper lobe. There is left lower lobe hemithoracic pleural thickening, stable in the interval. There is a small focus of left basilar consolidation, also unchanged from the previous study. Hepatic steatosis. Electronically Signed: Jonathan Prasad MD at 16:22 EDT , Service support , CC: Hanna Vega MD; Fernando Mock DO Flash Ranging Crewmember: Signed BASIC METABOLIC Collected: 03/31/2018 Status: F Source: [place] PROFILE (BMP) 3:05 PM [facility] REPOSITORY TYPE CODE TESTS RESULT OUT OF RANGE REFERENCE UNITS LAB L501.0100 74-106 mg/dL High GLU 107 Result Comment: Fasting Glucose result from 100 to 125 mg/dL suggests IMPAIRED HOMEOSTASIS per A.D.A. criteria. Please note revised GLUCOSE reference range effective 2017. LAB L501.1000 7-18 mg/dL High BUN 20 LAB L501.1100 0.70-1.30 mg/dL High CREAT,SERUM 1.33 Result Comment: The validity of the calculated GFR AND GFRAA in patients over 70 years has not been determined. Clinical correlation is essential. LAB L501.1110 >60 mL/min Low EST GFR 57 Result Comment: Non- GFR Calc LAB L501.1115 >60 mL/min Normal EST GFR - AA 69 Result Comment: GFR Calc LAB L501.1255 ml/min Normal Estimated CRCL 57.17 LAB L501.1300 10-20 RATIO Normal BUN/CRE 15.0 LAB L501.2200 8.5-10 mg/dL Normal .1 CA 9.1 LAB L501.5300 136-14 mmol/L Normal 5 NA 138 LAB L501.5600 3.5-5. mmol/L Normal 1 K 3.8 LAB L501.5900 98-107 mmol/L Normal CL 104 LAB L501.6100 21.0-3 mmol/L Normal 2.0 CO2 25.0 LAB L501.6200 5-15 Normal GAP 9 Performed By: #### L500.2500, L501.4010 #### [facility] [address] [place], [place], [address] TROPONIN-I Collected: 03/31/2018 Status: F Source: [place] 3:05 PM [facility] REPOSITORY TYPE CODE TESTS RESULT OUT OF RANGE REFERENCE UNITS LAB L501.4010 <0.045 ng/mL High 0.365 TROPONIN-I Result Comment: TROPONIN-I EXPECTED VALUES <0.045 Negative 0.045 - 0.590 Consistent with Cardiac Damage > OR = 0.600 Critical Value Not every elevated troponin is indicative of IL. These values should be used with clinical judgement in examining the patient's clinical picture for diagnosis. To establish a diagnosis of IL versus myocardial injury, there must be a demonstrated rise and/or fall in the troponin values, in addition to ischemic symptoms, EKG changes, new regional wall motion abnormality, and/or angiographical evidence. PLEASE NOTE: REFERENCE RANGES EDITED 17 Performed By: #### L500.2500, L501.4010 #### [facility] [address] [place], [address] CBC W/DIFF, AUTOMATED Collected: 03/31/2018 Status: F Source: [place] 3:05 PM [facility] REPOSITORY TYPE CODE TESTS RESULT OUT OF RANGE REFERENCE UNITS LAB L100.1000 4.4-11.0 K/mm3 Normal WBC 6.1 LAB L100.1200 4.6-6.2 M/mm3 Low RBC 3.64 LAB L100.1300 13.0-16.5 g/dl Low HGB 11.2 LAB L100.1400 40-54 % Low HCT 34.3 LAB L100.1500 80-94 fL High MCV 94.2 LAB L100.1600 27.0-32.0 pg Normal MCH 30.8 LAB L100.1700 32-36 g/gl Normal MCHC 32.7 LAB L100.1810 11.6-14.6 % Normal RDW CV 13.4 LAB L100.1820 35.1-43.9 fl High RDW SD 46.4 LAB L100.1900 150-450 K/mm3 Normal PLT 205 LAB L100.2000 6.2-12.0 fl Normal MPV 9.0 LAB L100.2100 47-70 % High NEUT% 72.5 LAB L100.2200 19-41 % Low LY% 16.1 LAB L100.2300 0-10 % Normal MONO% 9.4 LAB L100.2400 0-5 % Normal EO% 1.3 LAB L100.2500 0-1 % Normal BASO% 0.5 LAB L100.2550 0.0-0.9 % Normal IM GRAN % 0.200 Result Comment: IG% - Immature Granulocytes (promyelocytes, myelocytes and metamyelocytes) > 1% indicates that a LEFT SHIFT is Present. LAB L100.2620 2.0-7.7 X10 3/uL Normal Absolute Neut 4.4 LAB L100.2720 0.83-4.51 X10 3/ul Normal Absolute Lymph 0.98 Performed By: #### L100.0100 #### [facility] [place] [address] [place], [address] BEDSIDE GLUCOSE Collected: 03/31/2018 Status: F Source: [place] 3:03 PM [facility] REPOSITORY TYPE CODE TESTS RESULT OUT OF REFERENCE UNITS RANGE LAB L501.080 70-110 mg/dL High BEDSIDE GLU 113 Result Comment: MANAGEMENT OF PATIENT CARE PER NURSING PROTOCOL Performed By: #### L501.080 #### [facility] Point of Care [address] [place] [address] ONCOLOGY VISIT REPORT Observed: 03/16/2018 Status: F Source: [place] 1:03 PM [facility] REPOSITORY [facility] [address] [place] [address] OFFICE VISIT Date of Service: 03/16/18 1124 MR#: [id number] Acct: [id number] Name: SHAILA STOLL Rep #: [id number] : 1950 From: Dago Leger MD Age/Sex: 67/M Location: [facility] Status: Signed - Problem List (1) Cancer of lower lobe of left lung Status: Chronic (2) Regional lymph node metastasis present Status: Chronic (3) Prostate cancer Status: Chronic Comment: surgery , R.T. 2015 PSA relapse 2016 ADT (4) Anemia Status: Chronic Qualifiers: Anemia type: other cause Other causes of anemia: antineoplastic chemotherapy Qualified Code(s): D64.81 - Anemia due to antineoplastic chemotherapy; T45.1X5A - Adverse effect of antineoplastic and immunosuppressive drugs, initial encounter (5) Pulmonary embolism Status: Chronic Qualifiers: Pulmonary embolism type: saddle Chronicity: acute Acute cor pulmonale presence: without acute cor pulmonale Qualified Code(s): I26.92 - Saddle embolus of pulmonary artery without acute cor pulmonale - Date of Service Date of Service:: 03/16/18 - Chief Complaint Lung cancer follow-up - History of Present Illness Patient is a 66-year-old gentleman smoker who quit over 20 years ago after a 30+ pack year smoking who presented with a months history of increasing dyspnea on exertion and wheezing. Chest x-ray followed by a CT scan of the chest revealed a left lower lobe mass. Bronchoscopy by Dr. Mullen on 05/19/2017 showed a left lower lobe endobronchial lesion and biopsy confirmed an adenocarcinoma. Staging PET/CT IMPRESSION: 1. ABNORMAL EXAMINATION INDICATIVE OF MALIGNANT VIABLE NEOPLASM. 2. Increased glucose concentration heterogeneously defined in the left mid-lower posteromedial, posterior hemithorax, left lower lobe, fulfills quantitative criteria for viable neoplasm. 3. The increase in glucose concentration observed in the bilateral thoracic perihilum does not fulfill strict quantitative criteria for viable neoplasm with single point technique. 4. Asymmetric increased glucose concentration noted in the left hemipelvis contiguous to the subcutaneous fat may be further investigated with Brain MRI showed no evidence of metastatic disease. Pulmonary function tests are satisfactory for surgical resection. His past medical history is notable for prostate cancer presenting with an elevated PSA of 42. Patient is status post radical prostatectomy in October 2014 for a Aretha score 9 adenocarcinoma involving about 80% of the prostate with extra prostatic extension extensive positive margins and lymphovascular invasion as well as tory-neural invasion. Following his surgery patient underwent adjuvant radiation therapy concluded in 2014. At the completion of his treatment his PSA was less than 0.1 however by 2016 PSA relapse prompted initiation of ADT by his urologist which he continues to date with the most recent PSA of less than 0.1. His past medical history is also notable for multiple sclerosis with residual left lower extremity weakness but no recent flares. Treatment: On July 03, 2017 he underwent left lower lobe sleeve lobectomy at [facility] by Dr. Alfonso. Final pathology revealed a 6.5 cm single focus adenocarcinoma G2 negative margins no visceral pleural invasion no lymphovascular invasion and metastatic cancer was found in 1 lymph node position 11 mL (N1) of 16 N1 nodes dissected and non- and 8 N2 nodes dissected. Adjuvant Carbo-Alimta 10/13/2017-12/15/2017 (4 cycles) Delay as per patient request (insurance change) - Past Medical/Social History Past Medical History Past Medical History: Hyperlipidemia,Hypertension Other Past Medical History: MS Cancer: Lung cancer,Prostate cancer Past Surgical History Surgical: Prostatectomy Family History Paternal Past Medical History: Liver disease Paternal History of Cancer Liver cancer,Prostate cancer Maternal Past Medical History: Unknown Maternal History of Cancer: Bone cancer Social History Social History: No changes Smoking Status Former smoker Review of Systems Constitutional:: Denies: Fever, Sweats, Weight loss, Appetite change, Chills Cardiovascular:: Reports: Dyspnea on exertion. Denies: Chest pain, Palpitations, Orthopnea, PND, Shortness of breath Respiratory: Reports: Shortness of breath upon exertion. Denies: Cough, Hemoptysis, Shortness of Breath, Wheezing Gastrointestinal:: Denies: Abdominal pain, Nausea, Vomiting, Diarrhea, Constipation, Hematochezia Genitourinary: Denies: Dysuria, Hematuria, 15, Flank pain Musculoskeletal:: Denies: Back pain, Myalgia, Arthralgia Skin: Denies: Rash, Skin Changes, Wounds Neurological:: Denies: Headache, Dizziness, Visual changes, Tinnitus, Hearing loss Psychiatric: Denies: Anxiety, Depression, Homicidal Ideations, Suicidal Ideations Vital Signs Height 5 ft 10 in Weight: 91.989 kg Weight in Pounds 202.8 lbs Pulse Ox 97 - Physical Exam General: Alert, Oriented x3, No apparent distress, - - ECOG 1 HEENT: Atraumatic, PERRLA, EOMI, Normocephalic Oropharynx:: Dry mucosa Neck:: Supple, Trachea midline. Negative for: JVD, bilateral Cardiac:: Regular rate, Regular rhythm, Normal S1, Normal S2. Negative for: Murmur Lungs: Clear to auscultation, Diminished, Excusion symmetrical. Negative for: Rhonchi, Wheezes Abdomen:: Soft, Non-tender, Non-distended. Negative for: Hepatosplenomegaly Extremities:: Negative for: Cyanosis, Edema Neurological: Neuro grossly intact Skin:: Negative for: Lesions, Rash, Petechiae, Ecchymosis Psychiatric:: Appropriate affect, Euthymic Lymphatics:: Negative for: Cervical lymphadenopathy, Supraclavicular lymphadenopathy, Axillary lymphadenopathy Laboratory Data: Laboratory Tests Total PSA 0.13 0.44 0.8 Total PSA 0.01 < 0.01 < 0.01 Total PSA < 0.01 < 0.01 < 0.01 Total PSA < 0.01 Diagnostic Data: CT chest and abdomen March 2018 reviewed in EMR. No evidence to suggest residual or recurrent lung cancer Assessment and Plan 66-year-old male with: 1. Non-small cell lung cancer, adenocarcinoma histology, left lower lobe. Patient is status post left lower lobectomy and lymph node dissection at [facility] July 03, 2017 with R0 resection. Pathologic stage IIB(T2b, N1, M0). Received adjuvant chemotherapy with carboplatin Alimta for 4 cycles October-December 2017 (as per patient request of delay) he will go on surveillance, follow- up every 3 months in the first [address] of the chest will be due in 6 months from now. 2. A very high risk prostate cancer status post radical prostatectomy followed by adjuvant radiation therapy in 2014 and has been on ADT since 2016 due to PSA relapse. Disease seems to be in remission on therapy at this time with PSA stable less than 1. Care has been under his urologist and will continue to watch concurrently. 3- Pulmonary embolism and bilateral lower extremities DVT, unprovoked 10/02/2017. This raises concern for a possible underlying malignancy induced hypercoagulability and therefore advice systemic anticoagulation for at least one year probably long-term. Treatment options between Lovenox, Coumadin or Eliquis with the pros and cons of each discussed with the patient. Patient elected for Eliquis. 4-Anemia, probably multifactorial including that of cancer and chemotherapy, improving Comorbid condition COPD, residual left lower extremity weakness from a remote attack with multiple sclerosis. Prostate cancer in remission on LHRH therapy. Patient was seen was his impression and recommendations discussed Medications: Prescriptions This Visit Medication Instructions Recorded Ascorbic Acid [Vitamin C] 500 mg PO DAILY@0800 10/06/17 Bisprolol Fumarate 10 mg PO DAILY 11/03/17 Primary Care Provider: Fernando Mock MD Referring Provider: 03/16/18 1303 <Electronically signed by Dago Leger MD> Date Dago Leger MD Cosigner Signature: Date (if applicable) CC: CREATININE FINGERSTICK Collected: 03/09/2018 Status: F Source: [place] 1:01 PM [facility] REPOSITORY TYPE CODE TESTS RESULT OUT OF RANGE REFERENCE UNITS LAB L9100.0210 0.70-1.30 mg/dL Normal CREATININE WB 0.9 LAB L9100.0220 >60 mL/min EGFR WB Normal > 60.0000 Performed By: #### L9100.0200 #### [facility] Point of Care [address] [facility] [address] CHEST WITH CONTRAST Observed: 03/09/2018 Status: F Source: [place] 12:55 PM [facility] REPOSITORY [facility] Imaging Services [address] [place] [address] Chest WITH Contrast MR#: [id number] Acct: [id number] Name: SHAILA STOLL Rep #: [id number] : 1950 M 67 From: Lauro Wright MD PCP: Fernando Mock DO Status: REG CLI Study: Chest WITH Contrast Date of Exam: 03/09/18 Exam# [id number] Ordering Dr: Dago Leger MD STUDY: CT CHEST WITH CONTRAST REASON FOR EXAM: Male, 67 years old. Prostate and lung cancer. History of partial left lung removal and prostate surgery. Prior hernia repair. Radiation therapy for prostate cancer. Chemotherapy for lung cancer. Hypertension. RADIATION DOSAGE (If Supplied By Facility): CTDIvol = ( 19.67 ) mGy, DLP = ( 1912.31 ) mGycm TECHNIQUE: Transaxial imaging was performed following intravenous administration of 100 ml of Isovue 300 contrast material. Coronal and sagittal 2-D MPR. Individualized dose optimization techniques were used for this CT. COMPARISON: CT chest same date. CT chest 10/02/2017. CT pelvis 01/04/2015. FINDINGS: Supraclavicular: There is a cluster of small lymph nodes right paratracheal at the thoracic inlet. Not pathologically enlarged. These have diminished in size compared to prior imaging of October 2017. Likely representing a response to chemotherapy. Normal thyroid. There is no supraclavicular mass or lymphadenopathy. Thoracic body wall soft tissues: No acute process. Osseous structures: Osteopenia, scoliosis, mild thoracic spondylosis, no lytic or blastic lesions. Mediastinum: Normal esophagus. Multiple small clustered lymph nodes are present subcarinal, peritracheal, AP window. Substantially reduced in size, number and conspicuity as compared to prior imaging. Tiny lymph nodes in the [place] have markedly improved. Lungs: Partial pneumonectomy on the left, left lower lobectomy. Minimal layering left effusion and left lung base atelectasis. Kussman pulmonary nodule the right lower lung, old granulomatous disease. Lung acutely clear. Heart: Normal heart size without effusion. No visible coronary calcifications. No appendage thrombus. Aorta: Nondilated, minimal arch atherosclerosis, widely patent bovine cervical arch branching. Pulmonary arteries: Nondilated. Ligation of the left lower lobe pulmonary artery. On the right, there is stranding favoring this thrombus within the right lower lobar artery, just barely extending into a proximal segmental bifurcation in the lower lobes, without distal propagation. This is consistent with subacute/chronic thrombus. CT/Chest WITH Contrast IMPRESSION: 1. Markedly diminished lymphadenopathy compared to prior imaging of October 2017 and likely reflecting a response to chemotherapy. 2. Small layering left pleural effusion, with left lung base atelectasis, stable compared to imaging of October 2017. 3. Subacute/chronic small focus of pulmonary embolus, right lower lobar and branch proximal segmental vessels. Sequela from the embolus seen on the prior study of 10/02/2017, markedly improved. No residual embolus is seen on the left. Electronically Signed: Lauro Wright, at 14:00 EDT Tel , Service support , CC: Fernando Mock DO; Dago Leger MD Flash Ranging Crewmember: Signed ABDOMEN/PELVIS WITH Observed: 03/09/2018 Status: F Source: [place] CONTRAST 12:55 PM [facility] [place] REPOSITORY [facility] Imaging Services [address] [place] [id number] Abdomen/Pelvis WITH Contrast MR#: [id number] Acct: [id number] Name: SHAILA STOLL Rep #: [id number] : 1950 M 67 From: Lauro Wright MD PCP: Fernando Mock DO Status: REG CLI Study: Abdomen/Pelvis WITH Contrast Date of Exam: 03/09/18 Exam# [id number] Ordering Dr: Dago Leger MD STUDY: CT ABDOMEN AND PELVIS WITH CONTRAST REASON FOR EXAM: Male, 67 years old. Prostate and lung cancer with partial left pneumonectomy, prostate surgery, chemotherapy and radiation therapy. RADIATION DOSAGE (If Supplied By Facility): CTDIvol = ( 19.67 ) mGy, DLP = ( 1912.31 ) mGycm TECHNIQUE: Transaxial images were obtained from the dome of the diaphragm to the symphysis pubis without oral contrast. 100 ml of Isovue 300 contrast was administered. Sagittal and coronal images were reconstructed. Individualized dose optimization techniques were used for this CT. COMPARISON: CT chest same date. CT pelvis 01/04/2015. CTA chest 10/02/2017. FINDINGS: Body wall soft tissues: No acute process. Osseous structures: No lytic or blastic osseous disease. Degenerative changes with ankylosis of the SI joints. No significant hip joint DJD. Mild lumbar spondylosis with scoliosis and osteopenia. Hepatobiliary: Normal. Pancreas: No acute process. Spleen: Normal. Adrenal glands: Normal. Urogenital: There are benign bilateral renal cysts, normal renal cortical thickness and symmetric nephrograms. Normal collecting systems and ureters. There is circumferential thickening of wall the urinary bladder. The prostate is absent. The seminal vesicles are either diminutive or absent. Pelvic floor and sidewalls and retroperitoneum: No mass or adenopathy. Vasculature: No acute process. Stomach: No acute process. Small bowel and mesentery: No acute process. Large bowel: Normal appendix. Scattered diverticulosis of the large bowel without acute diverticulitis. There is mild thickening of the wall of the rectum, without acute inflammatory induration the surrounding fat. This could reflect sequela from prostatic radiation therapy. Similar features seen on prior imaging. Free fluid or free air: None. CT/Abdomen/Pelvis WITH Contrast IMPRESSION: No acute abdominopelvic process is evident. Stable chronic findings as noted above. Electronically Signed: Lauro Wright, at 14:05 EDT Tel , Service support , CC: Fernando Mock DO; Dago Leger MD Flash Ranging Crewmember: Signed CBC W/DIFF, AUTOMATED Collected: 03/09/2018 Status: F Source: [place] 11:31 AM [facility] [place] REPOSITORY Order Comment: Reason for Laboratory Test . TYPE CODE TESTS RESULT OUT OF RANGE REFERENCE UNITS LAB L100.1000 4.4-11.0 K/mm3 Normal WBC 5.4 LAB L100.1200 4.6-6.2 M/mm3 Low RBC 3.49 LAB L100.1300 13.0-16.5 g/dl Low HGB 11.3 LAB L100.1400 40-54 % Low HCT 33.4 LAB L100.1500 80-94 fL High MCV 95.7 LAB L100.1600 27.0-32.0 pg High MCH 32.4 LAB L100.1700 32-36 g/gl Normal MCHC 33.8 LAB L100.1810 11.6-14.6 % Normal RDW CV 12.6 LAB L100.1820 35.1-43.9 fl Normal RDW SD 42.9 LAB L100.1900 150-450 K/mm3 Normal PLT 246 LAB L100.2000 6.2-12.0 fl Normal MPV 8.3 LAB L100.2100 47-70 % Normal NEUT% 62.0 LAB L100.2200 19-41 % Normal LY% 21.1 LAB L100.2300 0-10 % High MONO% 14.3 LAB L100.2400 0-5 % Normal EO% 2.0 LAB L100.2500 0-1 % Normal BASO% 0.4 LAB L100.2550 0.0-0.9 % Normal IM GRAN % 0.200 Result Comment: IG% - Immature Granulocytes (promyelocytes, myelocytes and metamyelocytes) > 1% indicates that a LEFT SHIFT is Present. LAB L100.2620 2.0-7.7 X10 3/uL Normal Absolute Neut 3.4 LAB L100.2720 0.83-4.51 X10 3/ul Normal Absolute Lymph 1.14 Performed By: #### L100.0100, L500.4050, L501.9940 #### [facility] [address] [place], [place], [address] COMPREHENSIVE METABOLIC Collected: 03/09/2018 Status: F Source: [facility] 11:31 AM [facility] [place] REPOSITORY Order Comment: Reason for Laboratory Test . TYPE CODE TESTS RESULT OUT OF RANGE REFERENCE UNITS LAB L501.0100 74-106 mg/dL Normal GLU 93 Result Comment: Please note revised GLUCOSE reference range effective 2017. LAB L501.1000 7-18 mg/dL High BUN 21 LAB L501.1100 0.70-1.30 mg/dL Normal CREAT,SERUM 1.30 Result Comment: The validity of the calculated GFR AND GFRAA in patients over 70 years has not been determined. Clinical correlation is essential. LAB L501.1110 >60 mL/min Low EST GFR 59 Result Comment: Non- GFR Calc LAB L501.1115 >60 mL/min Normal EST GFR - AA 71 Result Comment: GFR Calc LAB L501.1255 ml/min Normal Estimated CRCL 58.49 LAB L501.1300 10-20 RATIO Normal BUN/CRE 16.2 LAB L501.1500 6.4-8. g/dL High 2 T PROT 8.3 LAB L501.1800 3.2-5. g/dL Normal 0 ALB 3.9 LAB L501.1950 2.2-4. g/dL High 2 GLOB 4.4 LAB L501.2000 0.9-2. RATIO Normal 4 A/G 0.9 LAB L501.2200 8.5-10 mg/dL Normal .1 CA 9.3 LAB L501.4100 15-37 U/L Normal AST 36 LAB L501.4305 45-117 U/L Normal ALK P 93 LAB L501.4405 16-61 U/L Normal ALT 43 LAB L501.4600 0.20-1 mg/dL Normal .00 T BILI 0.40 LAB L501.5300 136-14 mmol/L Normal 5 NA 140 LAB L501.5600 3.5-5. mmol/L Normal 1 K 4.9 LAB L501.5900 98-107 mmol/L Normal CL 104 LAB L501.6100 21.0-3 mmol/L Normal 2.0 CO2 28.0 LAB L501.6200 5-15 Normal GAP 8 Performed By: #### L100.0100, L500.4050, L501.9940 #### [facility] [address] [place], [address] PSA,TOTAL- DIAGNOSTIC Collected: 03/09/2018 Status: F Source: [place] 11:31 AM [facility] [place] REPOSITORY Order Comment: Reason for Laboratory Test . TYPE CODE TESTS RESULT OUT OF RANGE REFERENCE UNITS LAB L501.9940 0.0-4.0 ng/mL PSA, Normal DIAGNOSTIC < 0.01 Result Comment: This test was performed using the TPSA assay method for the [employer] chemistry system. Values obtained with different assay methods cannot be used interchangably. When changing PSA assays in the course of monitoring a patient, additional sequential testing should be carried out to confirm baseline values. Performed By: #### L100.0100, L500.4050, L501.9940 #### [facility] [address] [place], [address] PULMONARY VISIT REPORT Observed: 02/18/2018 Status: F Source: [place] 10:16 AM [facility] [place] REPOSITORY [facility] [address] [place] [address] OFFICE VISIT Date of Service: 02/18/18 MR#: [id number] Acct: [id number] Name: SHAILA STOLL Rep #: [id number] : 1950 Provider: Tavon Mullen MD Age/Sex: 67/M [place] [facility] [place] Status: Signed Assessment AND Plan Problems 1. removal of left lower lobe lung 2. SOB (shortness of breath) R06.02 3. Multiple sclerosis G35 Plan Patient overall appears to be improving following radiation and lung resection. Lung function studies do show significant worsening compared to previous, but taken in the context of a left lower lobe resection, these findings are expected. However, we will obtain a repeat PFT in 6 months to ensure stability. Signs and symptoms of exacerbation were reviewed in detail. Will await CT scan per oncology. Continue albuterol as needed. Repeat PFT prior to next visit. Orders Orders: Plan Detail Follow Up 6 Months ([facility]) HPI 3 M FU: Chief Complaint: Shortness of breath on exertion Details: Patient is a 67-year-old male, currently in the care of Dr. Mcgraw, who presents for evaluation secondary to shortness of breath on exertion. Since last visit, patient denies any ER visits, hospitalizations or prednisone burst. Patient does feel subjectively that he is breathing better than before. Patient does report that he completed his chemotherapy 2 months ago. Patient feels that he is completely healed from his resection in July. Patient is currently on no inhalers. Patient has been attempting initiation of an exercise routine estimates that he has been walking approximately 1/2 mile per day. Patient walks around the block and states that he can make it, but is extremely short of breath at the end. This is associated with palpitations, but he recovers over 3-5 minutes back to baseline. Patient denies any hemoptysis, productive cough, sinus congestion, watery eyes or chest pain. Patient has not had any lower extremity edema or syncope reported. Patient is not smoking. Patient does report increased shortness of breath with bending over, but this improves with standing back up with no real recovery period. Patient reports that he is to follow-up with oncology next month with a CT scan. Patient has been told that he is currently in remission. Reviewed with the patient Walking oximetry (02/05/2018): Ambulated 856 feet over the course of 6 minutes with an oxygen ramiro of 94%. Complete PFT (02/04/2018): Mild restrictive ventilatory defect with a disproportionate reduction diffusing capacity and worsening compared to May 2017 entheses FVC 71%, FEV1 71%, TLC 879%, DLCO 49%) Intake Vital Signs02/18/18 Height 5 ft 10 in 02/18/18 Weight: 91.626 kg Intake Visit Reasons: 3 M FU Chief Complaint: Lung cancer on treatment Is patient in pain?: No Allergies morphine Adverse Reaction (Intermediate, Verified 01/14/18 10:11) MAKES HIS NAUSEATED AND SICK Medications Lupron Depot UD 10/02/17 [History Confirmed 11/25/17] Albuterol IH (ProAir) [Proair Hfa] 1 - 2 puff INHALATION Q4H PRN PRN #1 inhaler 10/04/17 [Rx Confirmed 01/14/18] Apixaban [Eliquis] 5 mg PO BID #60 tab.ds.pk 10/04/17 [Rx Confirmed 01/14/18] Famotidine [Pepcid] 20 mg PO BID #60 tab 10/04/17 [Rx Confirmed 01/14/18] Ascorbic Acid [Vitamin C] 500 mg PO DAILY@0800 10/06/17 [History Confirmed 01/14/18] Ondansetron HCl [Zofran] 4 mg PO Q8H PRN PRN 10 Days #30 tab 10/19/17 [Rx Confirmed 01/14/18] Bisprolol Fumarate 5 mg PO DAILY 11/03/17 [History Confirmed 01/14/18] Bmx Liquid 10 ml PO TID PRN PRN 12 Days #360 ml 11/24/17 [Rx Confirmed 11/25/17] dexamethasone 4 mg tablet 4 mg PO Q12H 11/25/17 [History Confirmed 01/14/18] Amoxicillin 800 mg PO BID 01/14/18 [History Confirmed 01/14/18] Folic Acid 1 mg PO DAILY@0800 90 Days #90 tab 01/14/18 [Rx] [facility] Medical History Viral pharyngitis (Acute) Nasopharyngitis (Acute) Limb weakness (Acute) unusual tierdness (Acute) Sinusitis (Acute) SOB (shortness of breath) (Acute) Dyspnea (Acute) Adenocarcinoma of lung (Chronic) Hyperlipidemia (Acute) Hypertension (Chronic) 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) LYMPH NODE REMOVAL-CHEST (Acute) BLOOD CLOT LUNGS (Acute) Deep vein blood clot of left lower extremity (Acute) Deep vein blood clot of right lower extremity (Acute) Surgical History History of prostatectomy (Acute) Family History Father Prostate cancer Liver cancer Liver disease Mother Bone cancer Social History Smoking Status: Former smoker how long ago did patient quit smokin, 2 pk/day second hand exposure: Yes alcohol intake: never substance use type: does not use caffeine: Yes what type of physical activity do you participate in: none frequency: does not exercise seatbelt use: always Review of Systems Const CONSTITUTIONAL: Positive night sweats and fatigue; negative anorexia, body ache, chills, daytime sleepiness, fever(s), oral thrush, stops breathing during sleep, weight loss, sleeping in chair, weight loss, weight gain, frequent colds, seasonal allergies, other, orthopnea or headache(s) EETM Ear Nose Throat Mouth: Positive hearing normal and post nasal drip; negative hard of hearing, hoarseness, dry mouth in morning, change in vision, itchy eyes, eye pain, swallowing Difficulty, ear pain, nose bleed, headache(s), mouth pain, nasal congestion, nasal discharge, sinus pain, sinus pressure, sore throat or other Cardio Cardiovascular: Negative chest pain, chest pain at rest, chest pain with activity, irregular heart rhythm, edema, shortness of breath when lying down, palpitations, murmur or other Resp Respiratory: Positive as per HPI, shortness of breath and cough; negative pain with cough, wheezing, chest congestion, chest tightness, pain on inspiration, inhalers, increase use of rescue inhalers, snoring, apnea or other Gastro Gastrointestional: Negative bloody stools, change in appetite, difficulty swallowing, reflux, hematemesis, melena stool, loose stool, constipation or other Genitourinary: Negative blood in urine, nocturia, pain with urination or other Musc Musculoskeletal: Negative body pain, back pain, neck pain or other Skin/Breast Skin/Breast: Negative dry skin, itching, rash, unusual bruising, breast lump or other Neuro Neurological: Negative restless legs, confusion, weakness or other Psych Psychocological: Negative abnormal sleep pattern, anxiety, thoughts of hurting self/others, hopelessness or other Lymph Lymphatic: Negative easy bleeding, easy bruising, swollen lymph nodes or other Exam Const Constitutional: Positive conversant, cooperative, in no acute respiratory distress, healthy appearing, well developed, well nourished and good hygiene Head Head: Positive normocephalic and atraumatic; negative cyanosis of lips/distal nose, frontal sinus tenderness or maxillary sinus tenderness Eyes Eye: Positive clear conjunctiva; negative nystagmus, scleral abnormality or cataract present Ears Ear: Positive hearing normal and external ears normal; negative hard of hearing Nose Nose: Positive external nose normal, septum normal and clear nasal discharge; negative epistaxis or nasal polyp Mouth Mouth: Positive post nasal drip, oral mucosae normal, no lesions, dentures and posterior oropharynx is adequate; negative malodorous breath or oral thrush present Mallampati Score: II: Mallampati Score Neck Neck: Positive normal visual inspection, full ROM and trachea midline; negative lymphadenopathy or JVD Chest Wall Chest: Positive normal inspection of the chest and symmetric chest movement; negative crepitus or tenderness Resp lung sounds: Positive clear to auscultation, diminished and prolonged expiratory time; negative wheezes, rhonchi, rales, use of accessory muscles, wheeze present on forced exhalation or dullness to percussion Cardio Cardiac: Positive regular rate, regular rhythm, S1 normal and S2 normal; negative murmur, rub or gallop GI GI: Positive normal to inspection and normal bowel sounds; negative distended, ascites or epigastric tenderness Genitourinary: Positive deferred Musc Musculoskeletal: Negative using an assistive device for ambulation, kyphosis, scoliosis or steady gait (drags left leg) Skin Pulmonary Skin Exam: Positive intact and dermal atrophy; negative rash, lesion, ulcers or erythema Pulses Pulse: Yes radial pulses present Extremities Extremities: Yes capillary refill normal, No clubbing, No cyanosis, No edema Neuro Neurologic: Yes conversant, Yes no focal neuro deficits, Yes normal concentration, Yes understands questions, Yes cooperative, Yes normal cognition, Yes normal coordination Lymph Lymphatic: No lymphadenopathy Psych Appearance: Positive grossly normal Mental Status: Positive mental status grossly normal Mood: Positive congruent mood Affect: Positive normal affect Coding Level of Care Code Off vis,est,level 3 Diagnoses removal of left lower lobe lung SOB (shortness of breath) R06.02 Multiple sclerosis G35 02/18/18 1016 <Electronically signed by Tavon Mullen MD> Date Tavon Mullen MD Cosigner Signature: Date (if applicable) CC: Katlyn Mullins DO 6 MINUTE WALK TEST Observed: 02/08/2018 Status: F Source: [place] 10:17 AM [facility] [place] REPOSITORY [facility] Pulmonary Services/Neurology [address] [place] [address] MR#: [id number] Acct: [id number] Name: SHAILA STOLL Rep #: [id number] : 1950 67 From: David Mokc DO Referring Dr: Tavon Mullen MD Date: Ordering Dr: Sex: M C Location: PSN PSN 6 Minute Walk Test - 6 Minute Walk Test 6 Minute Walk Test: 6 Minute Walk Test PSN:6-Minute Walk Test Start: 02/05/18 10:33 Freq: Status: Active Protocol: [id number].6MINW Document 02/05/18 09:00 [facility] [place]Rec: 02/05/18 10:38 [facility] [id number] 6 Minute Walk Test Date Performed 02/05/18 Time Performed 09:00 Height 5 ft 10 in Weight: 200 lb Weight in Pounds 200.[address]: Tavon Mullen Assistive device used: None Pre-test Oxygen Delivery Method Room Air Pulse Ox (%) 99 Pulse Rate (60-100 beats/min) 66 Dyspnea Nahed Scale (0-10) 0.5 Exertion Nahed Scale (6-20) 6 1st minute Oxygen Delivery Method Room Air Pulse Ox (%) 99 Pulse Rate (60-100 beats/min) 79 Number of Rests Taken 0 2nd minute Oxygen Delivery Method Room Air Pulse Ox (%) 98 Pulse Rate (60-100 beats/min) 86 Number of Rests Taken 0 3rd minute Oxygen Delivery Method Room Air Pulse Ox (%) 95 Pulse Rate (60-100 beats/min) 86 Number of Rests Taken 0 4th minute Oxygen Delivery Method Room Air Pulse Ox (%) 94 Pulse Rate (60-100 beats/min) 90 Number of Rests Taken 0 5th minute Oxygen Delivery Method Room Air Pulse Ox (%) 96 Pulse Rate (60-100 beats/min) 88 Number of Rests Taken 0 6th minute Oxygen Delivery Method Room Air Pulse Ox (%) 97 Pulse Rate (60-100 beats/min) 86 Number of Rests Taken 0 Post-test Oxygen Delivery Method Room Air Pulse Ox (%) 99 Pulse Rate (60-100 beats/min) 69 Dyspnea Nahed Scale (0-10) 2 Exertion Nahed Scale (6-20) 12 Number of Rests Taken 0 Full Laps Walked 14 Partial Lap, Number of Tiles Walked 30 Total Distance Walked (ft) 856 - Interpretation Interpretation: The patient ambulated 856 feet over the course of 6 minutes beginning on room air without assistive devices or breaks. Pretesting oxygen saturation was noted to be 99% on room air. With ambulation, the ramiro oxygen saturation was 94%. This represents a significant exertional oxygen desaturation. - Recommendations Recommendations: There is no indication for the use of supplemental oxygen at this time. However, close interval follow-up is recommended given the degree of oxygen desaturation noted during this study. 02/08/18 1017 <Electronically signed by David Mock DO> Date David Mock DO CC: Date Dictated: 02/08/18 1016 Date Transcribed: 02/08/18 1016 Flash Ranging Crewmember: David Mock DO Signed PULMONARY FUNCTION Observed: 02/04/2018 Status: F Source: [place] TEST 11:40 AM [facility] [place] REPOSITORY [facility] Pulmonary Services/Neurology [address] [address] MR#: [id number] Acct: [id number] Name: SHAILA STOLL Rep #: [id number] : 1950 67 From: David Mock DO Referring Dr: Tavon Mullen MD Status: REG CLI Ordering Dr: Date: Location: [facility] Sex: M C INTRODUCTION: The patient is a 67-year-old male that presents for pulmonary function testing secondary to a diagnosis of shortness of breath. Respiratory therapy reports good patient effort. Bronchodilators were used during testing. INTERPRETATION: Forced expiration spirometry demonstrates no evidence of a large airways obstructive ventilatory defect. There was no significant response to aerosolized bronchodilators. Spirograms are of good quality and plateau gradually. Body plethysmography was performed and reveals a decreased TLC to 5.59 L, 79% of predicted, indicative of a mild restrictive ventilatory impairment. The remainder of the lung volumes are symmetrically reduced. Diffusing capacity by single breath CO is moderately reduced at 49% of predicted. When compared to previous pulmonary function studies dated May 2017, there has been symmetric reductions in FEV1 and FVC. TLC has decreased by 12%. DLCO is decreased by 20%. IMPRESSION: These pulmonary function studies demonstrate the presence of a mild restrictive ventilatory impairment with a disproportionate reduction in diffusing capacity. There has been worsening in the patient's PFTs since they were last completed in May 2017. Clinical correlation is recommended. 02/04/18 1140 <Electronically signed by David Mock DO> Date David Mock DO CC: Tavon Mullen MD; Katlyn Mullins DO Date Dictated: 02/04/18 1137 Date Transcribed: 02/04/18 1137 Flash Ranging Crewmember: JOSI Signed ONCOLOGY VISIT REPORT Observed: 01/14/2018 Status: F Source: [place] 2:06 PM [facility] [place] REPOSITORY [facility] [address] [place] [address] OFFICE VISIT Date of Service: 01/14/18 1019 MR#: [id number] Acct: [id number] Name: SHAILA STOLL Rep #: [id number] : 1950 From: Corina VALLES Age/Sex: 67/M Location: [facility] Status: Signed Subjective - Date of Service Date of Service:: 01/14/18 - Chief Complaint Survivorship Care Planning - History of Present Illness Patient is a 67-year-old gentleman smoker who quit over 20 years ago after a 30+ pack year smoking who presented with a months history of increasing dyspnea on exertion and wheezing. Chest x-ray followed by a CT scan of the chest revealed a left lower lobe mass. Bronchoscopy by Dr. Mullen on 05/19/2017 showed a left lower lobe endobronchial lesion and biopsy confirmed an adenocarcinoma. Staging PET/CT IMPRESSION: 1. ABNORMAL EXAMINATION INDICATIVE OF MALIGNANT VIABLE NEOPLASM. 2. Increased glucose concentration heterogeneously defined in the left mid-lower posteromedial, posterior hemithorax, left lower lobe, fulfills quantitative criteria for viable neoplasm. 3. The increase in glucose concentration observed in the bilateral thoracic perihilum does not fulfill strict quantitative criteria for viable neoplasm with single point technique. 4. Asymmetric increased glucose concentration noted in the left hemipelvis contiguous to the subcutaneous fat may be further investigated with Brain MRI showed no evidence of metastatic disease. Pulmonary function tests are satisfactory for surgical resection. His past medical history is notable for prostate cancer presenting with an elevated PSA of 42. Patient is status post radical prostatectomy in October 2014 for a Aretha score 9 adenocarcinoma involving about 80% of the prostate with extra prostatic extension extensive positive margins and lymphovascular invasion as well as tory-neural invasion. Following his surgery patient underwent adjuvant radiation therapy concluded in 2014. At the completion of his treatment his PSA was less than 0.1 however by 2016 PSA relapse prompted initiation of ADT by his urologist, Dr. Tisha Amaro, which he continues to date with the most recent PSA of less than 0.1. His past medical history is also notable for multiple sclerosis with residual left lower extremity weakness but no recent flares. Care complicated by bilateral PE visualized on CTA of the chest 10/02/17. Began Eliquis. Treatment: On July 03, 2017 he underwent left lower lobe sleeve lobectomy at [facility] by Dr. Alfonso. Final pathology revealed a 6.5 cm single focus adenocarcinoma G2 negative margins no visceral pleural invasion no lymphovascular invasion and metastatic cancer was found in 1 lymph node position 11 mL (N1) of 16 N1 nodes dissected and non- and 8 N2 nodes dissected. Adjuvant Carbo-Alimta 10/13/2017-12/15/17 Delay as per patient request (insurance change) - Interval History The patient is presenting to clinic accompanied by to review treatment summary and survivorship care planning. - Past Medical/Social History Past Medical History Past Medical History: Hyperlipidemia,Hypertension Other Past Medical History: MS Cancer: Lung cancer,Prostate cancer Past Surgical History Surgical: Prostatectomy Family History Paternal Past Medical History: Liver disease Paternal History of Cancer Liver cancer,Prostate cancer Maternal Past Medical History: Unknown Maternal History of Cancer: Bone cancer Social History Social History: No changes Smoking Status Former smoker Review of Systems Constitutional:: Reports: Fatigue - improving. Denies: Fever, Sweats, Weight loss, Appetite change, Chills Cardiovascular:: Denies: Chest pain, Palpitations, Dyspnea on exertion, Orthopnea, PND, Shortness of breath Respiratory: Reports: Shortness of breath upon exertion. Denies: Cough, Hemoptysis, Wheezing Gastrointestinal:: Denies: Abdominal pain, Nausea, Vomiting, Diarrhea, Constipation, Hematochezia Genitourinary: Reports: Urinary frequency, Nocturia. Denies: Dysuria, Hematuria, Flank pain Musculoskeletal:: Denies: Back pain, Myalgia, Arthralgia Skin: Denies: Rash, Skin Changes, Wounds Neurological:: Denies: Headache, Dizziness, Numbness, Tingling, Visual changes, Tinnitus, Hearing loss Psychiatric: Denies: Anxiety, Depression, Homicidal Ideations, Suicidal Ideations Vital Signs Height 5 ft 10 in Weight: 199 lb 9.6 oz Weight in Pounds 199.6 lbs Pulse Ox 94 - Physical Exam General: Alert, Oriented x3, No apparent distress HEENT: Atraumatic, PERRLA, EOMI, Normocephalic, - - wears glasses Oropharynx:: Negative for: Dry mucosa, Ulcerated lesions Neck:: Supple, Trachea midline. Negative for: JVD, bilateral Cardiac:: Regular rate, Regular rhythm, Normal S1, Normal S2. Negative for: Murmur Lungs: Clear to auscultation, Excusion symmetrical. Negative for: Rhonchi, Wheezes Abdomen:: Bowel sounds x 4, Soft, Non-tender, Non-distended. Negative for: Hepatosplenomegaly Extremities:: Negative for: Cyanosis, Edema Psychiatric:: Appropriate affect, Euthymic Lymphatics:: Negative for: Cervical lymphadenopathy, Supraclavicular lymphadenopathy, Axillary lymphadenopathy Assessment and Plan 67-year-old male with: 1. Non-small cell lung cancer, adenocarcinoma histology, left lower lobe. Patient is status post left lower lobectomy and lymph node dissection at [facility] July 03, 2017 with R0 resection. Pathologic stage IIB(T2b, N1, M0). Completed adjuvant chemotherapy with carboplatin Alimta for 4 cycles December 2017. Reviewed treatment summary and survivorship care plan documentation. Copies of which will be provided to the patient and all members of his health care team. Engaged in lengthy conversation regarding potential nursing home/late side effects associated with chemotherapy exposure, recommendations for follow up and signs/symptoms of concern that should be report in between visits. Healthy living recommendations:- Today we spent time discussing healthy lifestyle modifications inclusive of plant based diet including low fat, high fiber foods, low sodium and low cholesterol foods. We also discussed the importance of an exercise regimen of approx 5-6 days a week or physical activity >20 min per day and maintaining a healthy weight as well as moderate alcohol intake; abstinence from tobacco products. We discussed the appropriate health maintenance screenings. Encouraged to continue close follow up with his urologist for the management of prostate cancer. Continue to follow with pcp. Psychosocial AND spiritual health- He is well supported by spouse and family. Continues to adjust to life as a cancer survivor. We discussed coping strategies and potential resources. Greater than 50% of this one hour visit was spent in counseling and a significant amount of time was allotted for questions. All the patient's and spouse's concerns were addressed to their satisfaction. 2. A very high risk prostate cancer status post radical prostatectomy followed by adjuvant radiation therapy in 2014 and has been on ADT since 2016 due to PSA relapse. Disease seems to be in remission on therapy at this time. Care has been under his urologist, Dr. Tisha Amaro and will continue to watch concurrently. 3- Pulmonary embolism and bilateral lower extremities DVT, unprovoked 10/02/2017. This raises concern for a possible underlying malignancy induced hypercoagulability and therefore advice systemic anticoagulation for at least one year probably long-term. Continue Eliquis. 4-Anemia, probably multifactorial including that of cancer and chemotherapy- Advised to take one iron tablet orally daily with vitamin C and continue folic acid. Comorbid condition residual left lower extremity weakness from a remote attack with multiple sclerosis. Prostate cancer in remission on LHRH therapy. RTC 03/16/[address] Leger as previously planned. Corina Holbrook, MSN, SEAM SEWER-C, AOCNP Medications: Prescriptions This Visit Medication Instructions Recorded Primary Care Provider: Fernando Mock MD Referring Provider: - Problem List (1) Adenocarcinoma of lung Status: Chronic Qualifiers: Laterality: left Qualified Code(s): C34.92 - Malignant neoplasm of unspecified part of left bronchus or lung (2) Prostate cancer Status: Chronic Comment: surgery , R.T. 2015 PSA relapse 2016 ADT (3) Educational circumstance Status: Acute (4) Anemia Status: Acute Qualifiers: Anemia type: other cause Other causes of anemia: antineoplastic chemotherapy Qualified Code(s): D64.81 - Anemia due to antineoplastic chemotherapy; T45.1X5A - Adverse effect of antineoplastic and immunosuppressive drugs, initial encounter 01/14/18 1406 <Electronically signed by Corina VALLES> Date Corina VALLES Cosigner Signature: Date (if applicable) CC: END OF TREATMENT Observed: 01/14/2018 Status: F Source: [place] SUMMARY 11:24 AM [facility] [place] REPOSITORY [facility] [place] [address] End of Treatment Summary Date of Service: 01/13/18 1619 MR#: [id number] Acct: [id number] Name: SHAILA STOLL Rep #: [id number] : 1950 From: Corina Yusef SALES RESEARCH ANALYST-C Age/Sex: 67/M Location: OMD Status: Signed General Information Primary Care Provider:: Fernando Mock Medical Oncologist:: Dago Leger Other Providers:: Thoracic surgeon- Dr. Katlyn Alfonso. Tire Rebuilder- Dr. Mullen Treatment Summary Problem List: All Active Problems (Last Reviewed 01/14/18 @ 10:10 by Zenobia Hillman) Cancer of lower lobe of left lung (Acute) Regional lymph node metastasis present (Acute) Educational circumstance (Acute) HCAP (healthcare-associated pneumonia) (Acute) Anemia (Acute) Viral pharyngitis (Acute) Nasopharyngitis (Acute) Limb weakness (Acute) unusual tierdness (Acute) Sinusitis (Acute) SOB (shortness of breath) (Acute) Dyspnea (Acute) Hyperlipidemia (Acute) History of prostatectomy (Acute) LYMPH NODE REMOVAL-CHEST (Acute) Cancer Type / Location / Histology Subtype:: Non-small cell lung cancer of the left lower lobe, adenocarcinoma subtype Diagnosis Date [year]:: 05/19/17 Stage:: II - IIB (T2b, N1, M0) Surgery:: Yes Surgery Date[s] [year]:: 07/03/2017 Surgical Procedure / Location / Findings:: Left lower lobe sleeve lobectomy: 6.5 cm single focus, grade 2 with negative surgical margins. No visceral pleural invasion, no lymphovascular invasion. 1 Lymph node positive Radiation:: No Systemic Therapy [chemotherapy, hormonal therapy, other]:: Yes Name of Agents Used and End Date of Usage:: Carboplatin/Alimta x 4 cycles from 10/13/17-12/15/17 Persistent symptoms of side effects at completion of treatment:: Yes If yes, enter type[s]:: Fatigue, exertional dyspnea (improving) Follow-up Care Plan Need for ongoing [adjuvant] treatment for cancer:: No Schedule of Clinical Visits Coordination Provider:: Dago Leger When/How often:: every 6 months x 2-3 years, then annually Cancer Surveillance/Other Test Coordination Provider:: Dago Leger When/How often:: CT of the chest every 6 months x 2-3 years, then annually Cancer Surveillance/Symptoms: Please continue to see your primary care provider for all general health care recommended for a M your age, including cancer screening tests. Any symptoms should be brought to the attention of your provider: * Anything that represents a brand new symptom * Anything that represents a persistent symptom * Anything you are worried about that might be related to the cancer coming back Cancer survivors may experience issues with the areas listed below:: Emotional and mental health, Physical functioning, Memory or concentration loss, Fatigue, Insurance, Weight changes, Financial Advice or Assistance, Sexual functioning Cancer Survivor Issues - Help: If you have any concerns in these or other areas, please speak with your doctors or nurses to find out how you can get help with them. A number of lifestyle/behaviors can affect your ongoing health, including the risk for the cancer coming back or developing another cancer. Discuss these recommendations with your doctor or nurse.: Weight Management [loss/gain], Diet, Sunscreen use, Physical activity Other comments:: prepared by CECELIA Mac, HEBERTP. devilvered on 01/14/18 01/14/18 1124 <Electronically signed by Corina VALLES> Date Corina VALLES Cosigner Signature: Date (if applicable) CC: Tavon Mullen MD; Fernando Mock DO; Katlyn Mullins DO PSA,TOTAL- DIAGNOSTIC Collected: 01/14/2018 Status: F Source: [place] 10:05 AM [facility] [place] REPOSITORY TYPE CODE TESTS RESULT OUT OF RANGE REFERENCE UNITS LAB L501.9940 0.0-4.0 ng/mL PSA, Normal DIAGNOSTIC < 0.01 Result Comment: This test was performed using the TPSA assay method for the [employer] chemistry system. Values obtained with different assay methods cannot be used interchangably. When changing PSA assays in the course of monitoring a patient, additional sequential testing should be carried out to confirm baseline values. Performed By: #### L501.9940 #### [facility] [address] [place], [place], [id number] ONCOLOGY VISIT REPORT Observed: 12/15/2017 Status: F Source: [place] 9:36 AM [facility] [place] REPOSITORY [facility] [place] [address] OFFICE VISIT Date of Service: 12/15/17 0845 MR#: [id number] Acct: [id number] Name: SHAILA STOLL Rep #: [id number] : 1950 From: Dago Leger MD Age/Sex: 67/M Location: ONC Status: Signed - Problem List (1) Cancer of lower lobe of left lung Status: Acute (2) Regional lymph node metastasis present Status: Acute (3) Prostate cancer Status: Chronic Comment: surgery , R.T. 2014 PSA relapse 2016 ADT (4) Anemia Status: Acute - Date of Service Date of Service:: 12/15/17 - Chief Complaint Lung cancer treatment - History of Present Illness Patient is a 66-year-old gentleman smoker who quit over 20 years ago after a 30+ pack year smoking who presented with a months history of increasing dyspnea on exertion and wheezing. Chest x-ray followed by a CT scan of the chest revealed a left lower lobe mass. Bronchoscopy by Dr. Mullen on 05/19/2017 showed a left lower lobe endobronchial lesion and biopsy confirmed an adenocarcinoma. Staging PET/CT IMPRESSION: 1. ABNORMAL EXAMINATION INDICATIVE OF MALIGNANT VIABLE NEOPLASM. 2. Increased glucose concentration heterogeneously defined in the left mid-lower posteromedial, posterior hemithorax, left lower lobe, fulfills quantitative criteria for viable neoplasm. 3. The increase in glucose concentration observed in the bilateral thoracic perihilum does not fulfill strict quantitative criteria for viable neoplasm with single point technique. 4. Asymmetric increased glucose concentration noted in the left hemipelvis contiguous to the subcutaneous fat may be further investigated with Brain MRI showed no evidence of metastatic disease. Pulmonary function tests are satisfactory for surgical resection. His past medical history is notable for prostate cancer presenting with an elevated PSA of 42. Patient is status post radical prostatectomy in October 2014 for a Aretha score 9 adenocarcinoma involving about 80% of the prostate with extra prostatic extension extensive positive margins and lymphovascular invasion as well as tory-neural invasion. Following his surgery patient underwent adjuvant radiation therapy concluded in 2014. At the completion of his treatment his PSA was less than 0.1 however by 2016 PSA relapse prompted initiation of ADT by his urologist which he continues to date with the most recent PSA of less than 0.1. His past medical history is also notable for multiple sclerosis with residual left lower extremity weakness but no recent flares. Treatment: On July 03, 2017 he underwent left lower lobe sleeve lobectomy at [facility] by Dr. Alfonso. Final pathology revealed a 6.5 cm single focus adenocarcinoma G2 negative margins no visceral pleural invasion no lymphovascular invasion and metastatic cancer was found in 1 lymph node position 11 mL (N1) of 16 N1 nodes dissected and non- and 8 N2 nodes dissected. Adjuvant Carbo-Alimta 10/13/2017- Delay as per patient request (insurance change) - Past Medical/Social History Past Medical History Past Medical History: Hyperlipidemia,Hypertension Other Past Medical History: MS Cancer: Lung cancer,Prostate cancer Past Surgical History Surgical: Prostatectomy Family History Paternal Past Medical History: Liver disease Paternal History of Cancer Liver cancer,Prostate cancer Maternal Past Medical History: Unknown Maternal History of Cancer: Bone cancer Social History Social History: No changes Smoking Status Former smoker Review of Systems Constitutional:: Reports: Fatigue - The week following chemotherapy then recovers to baseline. Denies: Fever, Sweats, Weight loss, Appetite change, Chills Cardiovascular:: Reports: Dyspnea on exertion. Denies: Chest pain, Palpitations, Orthopnea, PND, Shortness of breath Respiratory: Reports: Shortness of breath upon exertion. Denies: Cough, Hemoptysis, Shortness of Breath, Wheezing Gastrointestinal:: Denies: Abdominal pain, Nausea, Vomiting, Diarrhea, Constipation, Hematochezia Genitourinary: Denies: Dysuria, Hematuria, 15, Flank pain Musculoskeletal:: Denies: Back pain, Myalgia, Arthralgia Skin: Denies: Rash, Skin Changes, Wounds Neurological:: Denies: Headache, Dizziness, Visual changes, Tinnitus, Hearing loss Psychiatric: Denies: Anxiety, Depression, Homicidal Ideations, Suicidal Ideations Vital Signs Height 5 ft 10 in Weight: 87.725 kg Weight in Pounds 193.4 lbs Pulse Ox 98 - Physical Exam General: Alert, Oriented x3, No apparent distress, - - ECOG 1 HEENT: Atraumatic, PERRLA, EOMI, Normocephalic Oropharynx:: Dry mucosa Neck:: Supple, Trachea midline. Negative for: JVD, bilateral Cardiac:: Regular rate, Regular rhythm, Normal S1, Normal S2. Negative for: Murmur Lungs: Clear to auscultation, Diminished, Excusion symmetrical. Negative for: Rhonchi, Wheezes Abdomen:: Soft, Non-tender, Non-distended. Negative for: Hepatosplenomegaly Extremities:: Negative for: Cyanosis, Edema Neurological: Neuro grossly intact Skin:: Negative for: Lesions, Rash, Petechiae, Ecchymosis Psychiatric:: Appropriate affect, Euthymic Lymphatics:: Negative for: Cervical lymphadenopathy, Supraclavicular lymphadenopathy, Axillary lymphadenopathy Laboratory Data: Reviewed in EMR Assessment and Plan 66-year-old male with: 1. Non-small cell lung cancer, adenocarcinoma histology, left lower lobe. Patient is status post left lower lobectomy and lymph node dissection at [facility] July 03, 2017 with R0 resection. Pathologic stage IIB(T2b, N1, M0). Started adjuvant chemotherapy with carboplatin Alimta for 4 cycles in October 2017 (as per patient request of delay) supported with antiemetics, steroids, B12 and folic acid and primary prophylaxis against febrile neutropenia with Neulasta due to increased risk for febrile neutropenia. Start cycle 11/04 today 2. A very high risk prostate cancer status post radical prostatectomy followed by adjuvant radiation therapy in 2014 and has been on ADT since 2016 due to PSA relapse. Disease seems to be in remission on therapy at this time. Care has been under his urologist and will continue to watch concurrently. 3- Pulmonary embolism and bilateral lower extremities DVT, unprovoked 10/02/2017. This raises concern for a possible underlying malignancy induced hypercoagulability and therefore advice systemic anticoagulation for at least one year probably long-term. Treatment options between Lovenox, Coumadin or Eliquis with the pros and cons of each discussed with the patient. Patient elected for Eliquis. 4-Anemia, probably multifactorial including that of cancer and chemotherapy, we will support with transfusions if needed (hemoglobin less than 7-8 g per DL depending on symptoms) and advised to take one iron tablet orally daily Comorbid condition residual left lower extremity weakness from a remote attack with multiple sclerosis. Prostate cancer in remission on LHRH therapy. Patient was seen was his impression and recommendations discussed Medications: Prescriptions This Visit Medication Instructions Recorded Medications Added to Medication List This Visit 0.9% Normal Saline Med 12/15/17 00:00 Active 250 ml IV UD PRN 0.9% Saline Lock Med 12/15/17 00:00 Active 10 ml IV UD PRN Cyanocobalamin [Vitamin B12] Med 12/15/17 00:00 Active Primary Care Provider: Fernando Mock MD Referring Provider: 12/15/17 0936 <Electronically signed by Dago Leger MD> Date Dago Leger MD Cosigner Signature: Date (if applicable) CC: CBC W/DIFF, AUTOMATED Collected: 12/15/2017 Status: F Source: [place] 8:34 AM [facility] [place] REPOSITORY TYPE CODE TESTS RESULT OUT OF RANGE REFERENCE UNITS LAB L100.1000 4.4-11.0 K/mm3 High WBC 14.4 LAB L100.1200 4.6-6.2 M/mm3 Low RBC 3.00 LAB L100.1300 13.0-16.5 g/dl Low HGB 9.5 LAB L100.1400 40-54 % Low HCT 28.8 LAB L100.1500 80-94 fL High MCV 96.0 LAB L100.1600 27.0-32.0 pg Normal MCH 31.7 LAB L100.1700 32-36 g/gl Normal MCHC 33.0 LAB L100.1810 11.6-14.6 % High RDW CV 21.4 LAB L100.1820 35.1-43.9 fl High RDW SD 73.3 LAB L100.1900 150-450 K/mm3 Normal PLT 287 LAB L100.2000 6.2-12.0 fl Normal MPV 8.5 LAB L100.2100 47-70 % High NEUT% 90.8 LAB L100.2200 19-41 % Low LY% 3.8 LAB L100.2300 0-10 % Normal MONO% 4.7 LAB L100.2400 0-5 % Normal EO% 0.0 LAB L100.2500 0-1 % Normal BASO% 0.1 LAB L100.2550 0.0-0.9 % Normal IM GRAN % 0.600 Result Comment: IG% - Immature Granulocytes (promyelocytes, myelocytes and metamyelocytes) > 1% indicates that a LEFT SHIFT is Present. LAB L100.2620 2.0-7.7 X10 3/uL High Absolute Neut 13.1 LAB L100.2720 0.83-4.51 X10 3/ul Low Absolute Lymph 0.54 LAB L100.7300 Normal ANISO 2+ Performed By: #### L100.0100, L500.4050 #### [facility] [address] [place], [place], [id number] COMPREHENSIVE METABOLIC Collected: 12/15/2017 Status: F Source: [facility] 8:34 AM [facility] [place] REPOSITORY TYPE CODE TESTS RESULT OUT OF RANGE REFERENCE UNITS LAB L501.0100 74-106 mg/dL High GLU 157 Result Comment: Fasting Glucose result greater than or equal to 126 mg/dL suggests DIABETES MELLITUS per A.D.A. criteria. Please note revised GLUCOSE reference range effective 2017. LAB L501.1000 7-18 mg/dL Normal BUN 18 LAB L501.1100 0.70-1.30 mg/dL Normal CREAT,SERUM 1.20 Result Comment: The validity of the calculated GFR AND GFRAA in patients over 70 years has not been determined. Clinical correlation is essential. LAB L501.1110 >60 mL/min Normal EST GFR 65 Result Comment: Non- GFR Calc LAB L501.1115 >60 mL/min Normal EST GFR - AA 78 Result Comment: GFR Calc LAB L501.1255 ml/min Normal Estimated CRCL 63.37 LAB L501.1300 10-20 RATIO Normal BUN/CRE 15.0 LAB L501.1500 6.4-8. g/dL High 2 T PROT 8.3 LAB L501.1800 3.2-5. g/dL Normal 0 ALB 3.8 LAB L501.1950 2.2-4. g/dL High 2 GLOB 4.5 LAB L501.2000 0.9-2. RATIO Low 4 A/G 0.8 LAB L501.2200 8.5-10 mg/dL Normal .1 CA 9.0 LAB L501.4100 15-37 U/L Normal AST 22 LAB L501.4305 45-117 U/L Normal ALK P 104 LAB L501.4405 16-61 U/L Normal ALT 36 LAB L501.4600 0.20-1 mg/dL Normal .00 T BILI 0.30 LAB L501.5300 136-14 mmol/L Low 5 NA 135 LAB L501.5600 3.5-5. mmol/L Normal 1 K 4.5 LAB L501.5900 98-107 mmol/L Normal CL 102 LAB L501.6100 21.0-3 mmol/L Normal 2.0 CO2 22.0 LAB L501.6200 5-15 Normal GAP 11 Performed By: #### L100.0100, L500.4050 #### [facility] [address] [place], [address] PULMONARY VISIT REPORT Observed: 11/25/2017 Status: F Source: [place] 5:08 PM [facility] [place] REPOSITORY [facility] [address] [place] [address] OFFICE VISIT Date of Service: 11/25/17 MR#: [id number] Acct: [id number] Name: SHAILA STOLL Rep #: [id number] : 1950 Provider: Tavon Mullen MD Age/Sex: 67/M [place] [facility] Status: Signed Assessment AND Plan 1. Adenocarcinoma of left lung C34.92 Plan Patient was stage IIb adenocarcinoma that is currently receiving chemotherapy. Patient is reporting significant fatigue, especially after chemotherapy. Did point out the patient has had a significant decrease in hemoglobin after initiation of therapy. However, this would not require supplementation. Patient is doing well at rest. Reassurance was given. Patient to complete chemotherapy. Will obtain complete pulmonary function test walking oximetry to be completed prior to next visit to establish a new baseline following lobectomy and chemotherapy. Await oncology recommendations Orders Orders: 2. removal of left lower lobe lung Plan Patient appears to be well healed from left lower lobectomy externally. Imaging studies completed at the hospital were not suggestive of any surgical complications. Repeat pulmonary function test to establish new baseline function has not been completed. Continue supportive care 3. SOB (shortness of breath) R06.02 Plan Patient reporting increased shortness of breath compared to previous. Clinical suspicion for multifactorial etiology at this time. She is receiving chemotherapy and does have slight anemia. However, blood transfusions are not indicated. Patient also has a recent pulmonary embolus. Patient does have a home pulse oximeter and denies any desaturations at this time. Obtain walking oximetry complete PFT prior to next visit. Orders Orders: 4. Acute saddle pulmonary embolism without acute cor pulmonale I26.92 Plan Patient with recent diagnosis of acute pulmonary embolism. Patient did not have elevated pulmonary artery pressures in the hospital reported. Stressed to the patient that anticoagulation is sufficient enough and that repeat imaging is likely not indicated. Given patient's history of multiple malignancies, did recommend probable lifelong anticoagulation. Patient appears to be tolerating Eliquis well at this time. Lifelong Eliquis therapy. Plan Detail Follow Up 3 Months ([facility]) HPI 3 M FU: Chief Complaint: Shortness of breath on exertion Details: Patient is a 67-year-old male, currently in the care of Dr. Mock, who presents for evaluation secondary to shortness of breath on exertion. Since last visit, patient reports he has received chemotherapy and feels significantly fatigued compared to previous. Patient was seen in the emergency room and briefly admitted at the beginning of October secondary to his breathing issues. Patient was found to be found with a pulmonary embolism. Patient was discharged on Eliquis therapy. Patient with several questions about his pulmonary embolism and appropriate therapy. Patient denies any complications with anticoagulation including hemoptysis, epistaxis, excessive bruising or hematuria. Patient states he is breathing starts to feel better, but then he receives another chemotherapy and feels significantly fatigued. Patient reports his last chemotherapy session is on 12/15/2017 and this should be his last course. Patient is unaware of when repeat imaging will be completed. Patient denies any chest pain at this time. Patient states his wound is well-healed. Patient did not complete his pulmonary function test secondary to recent hospitalization. Patient does report occasional palpitations, especially on exertion. 22 pages of documentation from patient's hospitalization were reviewed including admission H AND P, discharge summary and imaging reports. Patient was treated empirically with antibiotics initially, but then transitioned to anticoagulation. Patient was not discharged on supplemental oxygen. Intake Vital Signs11/25/17 Height 5 ft 10 in 11/25/17 Weight: 87.09 kg Intake Visit Reasons: 3 M FU Accompanied by: Self Allergies morphine Adverse Reaction (Intermediate, Verified 11/25/17 09:34) MAKES HIS NAUSEATED AND SICK Medications Lupron Depot UD 10/02/17 [History Confirmed 11/25/17] Albuterol IH (ProAir) [Proair Hfa] 1 - 2 puff INHALATION Q4H PRN PRN #1 inhaler 10/04/17 [Rx Confirmed 11/25/17] Apixaban [Eliquis] 5 mg PO BID #60 tab.ds.pk 10/04/17 [Rx Confirmed 11/25/17] Famotidine [Pepcid] 20 mg PO BID #60 tab 10/04/17 [Rx Confirmed 11/25/17] levoFLOXacin tablet [Levaquin] 750 mg PO DAILY #6 tab 10/04/17 [Rx Confirmed 11/25/17] Ascorbic Acid [Vitamin C] 500 mg PO DAILY@0800 10/06/17 [History Confirmed 11/25/17] Folic Acid 1 mg PO DAILY@0800 90 Days #90 tab 10/19/17 [Rx Confirmed 11/25/17] Ondansetron HCl [Zofran] 4 mg PO Q8H PRN PRN 10 Days #30 tab 10/19/17 [Rx Confirmed 11/25/17] Bisprolol Fumarate 5 mg PO DAILY 11/03/17 [History Confirmed 11/25/17] Bmx Liquid 10 ml PO TID PRN PRN 12 Days #360 ml 11/24/17 [Rx Confirmed 11/25/17] dexamethasone 4 mg tablet 4 mg PO Q12H 11/25/17 [History Confirmed 11/25/17] PFSH Medical History Viral pharyngitis (Acute) Nasopharyngitis (Acute) Limb weakness (Acute) unusual tierdness (Acute) Sinusitis (Acute) SOB (shortness of breath) (Acute) Dyspnea (Acute) Adenocarcinoma of lung (Chronic) Hyperlipidemia (Acute) Hypertension (Chronic) 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) LYMPH NODE REMOVAL-CHEST (Acute) BLOOD CLOT LUNGS (Acute) Deep vein blood clot of left lower extremity (Acute) Deep vein blood clot of right lower extremity (Acute) Surgical History History of prostatectomy (Acute) Family History Father Prostate cancer Liver cancer Liver disease Mother Bone cancer Social History Smoking Status: Former smoker how long ago did patient quit smokin, 2 pk/day second hand exposure: Yes alcohol intake: never substance use type: does not use Review of Systems Const CONSTITUTIONAL: Positive fatigue; negative anorexia, body ache, chills, daytime sleepiness, fever(s), night sweats, oral thrush, stops breathing during sleep, weight loss, sleeping in chair, weight loss, weight gain, frequent colds, seasonal allergies, other, headache(s) or orthopnea EETM Ear Nose Throat Mouth: Positive hard of hearing; negative hearing normal, hoarseness, dry mouth in morning, change in vision, itchy eyes, eye pain, swallowing Difficulty, ear pain, nose bleed, headache(s), mouth pain, nasal congestion, nasal discharge, post nasal drip, sinus pain, sinus pressure, sore throat or other Cardio Cardiovascular: Negative chest pain, chest pain at rest, chest pain with activity, irregular heart rhythm, edema, shortness of breath when lying down, palpitations, murmur or other Resp Respiratory: Positive as per HPI, shortness of breath shortness of breath: Positive with activity and cough cough: Positive non-productive; negative pain with cough, wheezing, chest congestion, chest tightness, pain on inspiration, inhalers, increase use of rescue inhalers, snoring, apnea or other Gastro Gastrointestional: Negative bloody stools, change in appetite, difficulty swallowing, reflux, hematemesis, melena stool, loose stool, constipation or other Genitourinary: Negative blood in urine, nocturia, pain with urination or other Musc Musculoskeletal: Negative body pain, back pain, neck pain or other Skin/Breast Skin/Breast: Negative dry skin, itching, rash, unusual bruising, breast lump or other Neuro Neurological: Negative restless legs, confusion, weakness or other Psych Psychocological: Negative abnormal sleep pattern, anxiety, thoughts of hurting self/others, hopelessness or other Lymph Lymphatic: Negative easy bleeding, easy bruising, swollen lymph nodes or other Exam Const Constitutional: Positive conversant, cooperative, healthy appearing, good hygiene, frail appearing and appears older than stated age; negative ill appearing, wearing supplemental oxygen, smells of smoke or dyspenic (No conversational dyspnea appreciated) Head Head: Positive normocephalic and atraumatic; negative cyanosis of lips/distal nose, frontal sinus tenderness or maxillary sinus tenderness Eyes Eye: Positive clear conjunctiva; negative nystagmus, scleral abnormality or cataract present Ears Ear: Positive hard of hearing and external ears normal; negative hearing normal Nose Nose: Positive external nose normal, septum normal and no nasal discharge; negative epistaxis or nasal polyp Mouth Mouth: Positive oral mucosae normal, dentures, no lesions and posterior oropharynx is adequate; negative post nasal drip or oral thrush present Mallampati Score: II: Mallampati Score Neck Neck: Positive normal visual inspection, full ROM and trachea midline; negative lymphadenopathy or JVD Chest Wall Chest: Positive symmetric chest movement and increased A/P diameter; negative crepitus or tenderness Chest wound is well-healed without exudate or erythema. Resp lung sounds: Positive clear to auscultation, diminished, prolonged expiratory time, wheeze present on forced exhalation and normal respiratory effort; negative wheezes, rhonchi, rales, use of accessory muscles or dullness to percussion Cardio Cardiac: Positive regular rate, regular rhythm, S1 normal and S2 normal; negative murmur, rub or gallop GI GI: Positive normal to inspection and normal bowel sounds; negative distended, ascites or epigastric tenderness Genitourinary: Positive deferred Musc Musculoskeletal: Positive steady gait; negative using an assistive device for ambulation, kyphosis or scoliosis Skin Pulmonary Skin Exam: Positive intact and dermal atrophy; negative rash, lesion, ulcers or scaly Pulses Pulse: Yes radial pulses present Extremities Extremities: Yes capillary refill normal, Yes clubbing, No cyanosis, No edema, No stasis dermatitis Neuro Neurologic: Yes conversant, Yes cooperative, Yes normal cognition, Yes understands questions, Yes normal concentration Decreased movement of right lower extremity appreciated Lymph Lymphatic: No lymphadenopathy Psych Appearance: Positive grossly normal Mental Status: Positive mental status grossly normal Mood: Positive dysthymic mood Affect: Positive flat, blunted and constricted Coding Level of Care Code Off vis,est,level 4 Diagnoses Adenocarcinoma of left lung C34.92 Laterality: left removal of left lower lobe lung SOB (shortness of breath) R06.02 Acute saddle pulmonary embolism without acute cor pulmonale I26.92 Acute cor pulmonale presence: without acute cor pulmonale Chronicity: acute Pulmonary embolism type: saddle 11/25/17 1708 <Electronically signed by Tavon Mullen MD> Date Tavon Mullen MD Cosigner Signature: Date (if applicable) CC: Fernando Mock DO ONCOLOGY VISIT REPORT Observed: 11/24/2017 Status: F Source: [place] 10:08 AM [facility] [place] REPOSITORY [facility] [address] [place] [address] [place] [address] OFFICE VISIT Date of Service: 11/24/17 0942 MR#: [id number] Acct: [id number] Name: SHAILA STOLL Rep #: [id number] : 1950 From: Dago Leger MD Age/Sex: 67/M Location: [facility] Status: Signed - Problem List (1) Cancer of lower lobe of left lung Status: Acute (2) Regional lymph node metastasis present Status: Acute (3) Prostate cancer Status: Chronic Comment: surgery , R.T. 2014 PSA relapse 2016 ADT (4) Anemia Status: Acute - Date of Service Date of Service:: 11/24/17 - Chief Complaint Lung cancer on treatment - History of Present Illness Patient is a 66-year-old gentleman smoker who quit over 20 years ago after a 30+ pack year smoking who presented with a months history of increasing dyspnea on exertion and wheezing. Chest x-ray followed by a CT scan of the chest revealed a left lower lobe mass. Bronchoscopy by Dr. Mullen on 05/19/2017 showed a left lower lobe endobronchial lesion and biopsy confirmed an adenocarcinoma. Staging PET/CT IMPRESSION: 1. ABNORMAL EXAMINATION INDICATIVE OF MALIGNANT VIABLE NEOPLASM. 2. Increased glucose concentration heterogeneously defined in the left mid-lower posteromedial, posterior hemithorax, left lower lobe, fulfills quantitative criteria for viable neoplasm. 3. The increase in glucose concentration observed in the bilateral thoracic perihilum does not fulfill strict quantitative criteria for viable neoplasm with single point technique. 4. Asymmetric increased glucose concentration noted in the left hemipelvis contiguous to the subcutaneous fat may be further investigated with Brain MRI showed no evidence of metastatic disease. Pulmonary function tests are satisfactory for surgical resection. His past medical history is notable for prostate cancer presenting with an elevated PSA of 42. Patient is status post radical prostatectomy in October 2014 for a Keatchie score 9 adenocarcinoma involving about 80% of the prostate with extra prostatic extension extensive positive margins and lymphovascular invasion as well as tory-neural invasion. Following his surgery patient underwent adjuvant radiation therapy concluded in 2014. At the completion of his treatment his PSA was less than 0.1 however by 2016 PSA relapse prompted initiation of ADT by his urologist which he continues to date with the most recent PSA of less than 0.1. His past medical history is also notable for multiple sclerosis with residual left lower extremity weakness but no recent flares. Treatment: On July 03, 2017 he underwent left lower lobe sleeve lobectomy at [facility] by Dr. Alfonso. Final pathology revealed a 6.5 cm single focus adenocarcinoma G2 negative margins no visceral pleural invasion no lymphovascular invasion and metastatic cancer was found in 1 lymph node position 11 mL (N1) of 16 N1 nodes dissected and non- and 8 N2 nodes dissected. Adjuvant Carbo-Alimta 10/13/2017- Delay as per patient request (insurance change) - Past Medical/Social History Past Medical History Past Medical History: Hyperlipidemia,Hypertension Other Past Medical History: MS Cancer: Lung cancer,Prostate cancer Past Surgical History Surgical: Prostatectomy Family History Paternal Past Medical History: Liver disease Paternal History of Cancer Liver cancer,Prostate cancer Maternal Past Medical History: Unknown Maternal History of Cancer: Bone cancer Social History Social History: No changes Smoking Status Former smoker Review of Systems Constitutional:: Denies: Fever, Sweats, Weight loss, Appetite change, Chills Cardiovascular:: Reports: Dyspnea on exertion. Denies: Chest pain, Palpitations, Orthopnea, PND, Shortness of breath Respiratory: Reports: Shortness of breath upon exertion. Denies: Cough, Hemoptysis, Shortness of Breath, Wheezing Gastrointestinal:: Denies: Abdominal pain, Nausea, Vomiting, Diarrhea, Constipation, Hematochezia Genitourinary: Denies: Dysuria, Hematuria, 15, Flank pain Musculoskeletal:: Denies: Back pain, Myalgia, Arthralgia Skin: Denies: Rash, Skin Changes, Wounds Neurological:: Reports: Paresthesias - Fingers and toes last only a few days after treatment and resolved. Denies: Headache, Dizziness, Visual changes, Tinnitus, Hearing loss Psychiatric: Denies: Anxiety, Depression, Homicidal Ideations, Suicidal Ideations Vital Signs Height 5 ft 10 in Weight: 86.545 kg Weight in Pounds 190.8 lbs Pulse Ox 97 - Physical Exam General: Alert, Oriented x3, No apparent distress, - - ECOG 1 HEENT: Atraumatic, PERRLA, EOMI, Normocephalic Oropharynx:: Dry mucosa Neck:: Supple, Trachea midline. Negative for: JVD, bilateral Cardiac:: Regular rate, Regular rhythm, Normal S1, Normal S2. Negative for: Murmur Lungs: Clear to auscultation, Excusion symmetrical. Negative for: Rhonchi, Wheezes Abdomen:: Bowel sounds x 4, Soft, Non-tender, Non-distended. Negative for: Hepatosplenomegaly Extremities:: Negative for: Cyanosis, Edema Neurological: Neuro grossly intact Skin:: Negative for: Lesions, Rash, Petechiae, Ecchymosis Psychiatric:: Appropriate affect, Euthymic Lymphatics:: Negative for: Cervical lymphadenopathy, Supraclavicular lymphadenopathy, Axillary lymphadenopathy Assessment and Plan 66-year-old male with: 1. Non-small cell lung cancer, adenocarcinoma histology, left lower lobe. Patient is status post left lower lobectomy and lymph node dissection at [facility] July 03, 2017 with R0 resection. Pathologic stage IIB(T2b, N1, M0). Started adjuvant chemotherapy with carboplatin Alimta for 4 cycles in October 2017 (as per patient request of delay) supported with antiemetics, steroids, B12 and folic acid and primary prophylaxis against febrile neutropenia with Neulasta due to increased risk for febrile neutropenia. Start cycle 3/4 today 2. A very high risk prostate cancer status post radical prostatectomy followed by adjuvant radiation therapy in 2014 and has been on ADT since 2016 due to PSA relapse. Disease seems to be in remission on therapy at this time. 3- Pulmonary embolism and bilateral lower extremities DVT, unprovoked 10/02/2017. This raises concern for a possible underlying malignancy induced hypercoagulability and therefore advice systemic anticoagulation for at least one year probably long-term. Treatment options between Lovenox, Coumadin or Eliquis with the pros and cons of each discussed with the patient. Patient elected for Eliquis. 4-anemia, probably multifactorial including that of cancer and chemotherapy, we will support with transfusions if needed (hemoglobin less than 7-8 g per DL depending on symptoms) and advised to take one iron tablet orally daily Comorbid condition residual left lower extremity weakness from a remote attack with multiple sclerosis. Prostate cancer in remission on LHRH therapy. Patient was seen was his impression and recommendations discussed Medications: Prescriptions This Visit Medication Instructions Recorded Ascorbic Acid [Vitamin C] 500 mg PO DAILY@0800 10/06/17 Bisprolol Fumarate 5 mg PO DAILY 11/03/17 Primary Care Provider: Fernando Mock MD Referring Provider: 11/24/17 1008 <Electronically signed by Dago Leger MD> Date Dago Leger MD Cosigner Signature: Date (if applicable) CC: CBC W/DIFF, AUTOMATED Collected: 11/24/2017 Status: C Source: [place] 9:33 AM [facility] [place] REPOSITORY TYPE CODE TESTS RESULT OUT OF RANGE REFERENCE UNITS LAB L100.1000 4.4-11.0 K/mm3 High WBC 20.3 LAB L100.1200 4.6-6.2 M/mm3 Low RBC 2.92 LAB L100.1300 13.0-16.5 g/dl Low HGB 9.3 LAB L100.1400 40-54 % Low HCT 27.9 LAB L100.1500 80-94 fL High MCV 95.5 LAB L100.1600 27.0-32.0 pg Normal MCH 31.8 LAB L100.1700 32-36 g/gl Normal MCHC 33.3 LAB L100.1810 11.6-14.6 % High RDW CV 19.5 LAB L100.1820 35.1-43.9 fl High RDW SD 61.7 LAB L100.1900 150-450 K/mm3 Normal PLT 376 LAB L100.2000 6.2-12.0 fl Normal MPV 8.4 LAB L100.2100 47-70 % High NEUT% 86.4 LAB L100.2200 19-41 % Low LY% 4.0 LAB L100.2300 0-10 % Normal MONO% 8.3 LAB L100.2400 0-5 % Normal EO% 0.0 LAB L100.2500 0-1 % Normal BASO% 0.0 LAB L100.2550 0.0-0.9 % High IM GRAN % 1.300 Result Comment: IG% - Immature Granulocytes (promyelocytes, myelocytes and metamyelocytes) > 1% indicates that a LEFT SHIFT is Present. LAB L100.2620 2.0-7.7 X10 3/uL High Absolute Neut 17.5 LAB L100.2720 0.83-4.51 X10 3/ul Low Absolute Lymph 0.82 LAB L100.4500 Normal SMEAR COMMENT Result Comment: SLIDE SCANNED - MONOCYTOSIS NOTED. LAB L100.9900 Normal Reviewed PATH REV Result Comment: Neutrophilic leukocytosis. Macrocytic anemia. Clinical correlation necessary. Rakesh Schwartz D.O. 11/25/17 AMENDED REPORT 11/25/17 0931 PATH REV previously reported as: December iris Performed By: #### L100.0100 #### [facility] [place], [address] COMPREHENSIVE METABOLIC Collected: 11/24/2017 Status: F Source: [facility] 9:33 AM [facility] [place] REPOSITORY TYPE CODE TESTS RESULT OUT OF RANGE REFERENCE UNITS LAB L501.0100 74-106 mg/dL High GLU 117 Result Comment: Fasting Glucose result from 100 to 125 mg/dL suggests IMPAIRED HOMEOSTASIS per A.D.A. criteria. Please note revised GLUCOSE reference range effective 2017. LAB L501.1000 7-18 mg/dL High BUN 21 LAB L501.1100 0.70-1.30 mg/dL Normal CREAT,SERUM 1.05 Result Comment: The validity of the calculated GFR AND GFRAA in patients over 70 years has not been determined. Clinical correlation is essential. LAB L501.1110 >60 mL/min Normal EST GFR 75 Result Comment: Non- GFR Calc LAB L501.1115 >60 mL/min Normal EST GFR - AA 91 Result Comment: GFR Calc LAB L501.1255 ml/min Normal Estimated CRCL 72.42 LAB L501.1300 10-20 RATIO Normal BUN/CRE 20.0 LAB L501.1500 6.4-8. g/dL Normal 2 T PROT 7.9 LAB L501.1800 3.2-5. g/dL Normal 0 ALB 3.7 LAB L501.1950 2.2-4. g/dL Normal 2 GLOB 4.2 LAB L501.2000 0.9-2. RATIO Normal 4 A/G 0.9 LAB L501.2200 8.5-10 mg/dL Normal .1 CA 8.8 LAB L501.4100 15-37 U/L Normal AST 24 LAB L501.4305 45-117 U/L Normal ALK P 92 LAB L501.4405 16-61 U/L Normal ALT 37 LAB L501.4600 0.20-1 mg/dL Normal .00 T BILI 0.20 LAB L501.5300 136-14 mmol/L Normal 5 NA 137 LAB L501.5600 3.5-5. mmol/L Normal 1 K 4.2 LAB L501.5900 98-107 mmol/L Normal CL 104 LAB L501.6100 21.0-3 mmol/L Normal 2.0 CO2 22.0 LAB L501.6200 5-15 Normal GAP 11 Performed By: #### L500.4050 #### [facility] [address] [place], [place], [address] CBC W/DIFF, AUTOMATED Collected: 11/10/2017 Status: F Source: [place] 9:34 AM [facility] [place] REPOSITORY Order Comment: Reason for Laboratory Test Symptomatic - possible anemia; also draw type and save TYPE CODE TESTS RESULT OUT OF RANGE REFERENCE UNITS LAB L100.1000 4.4-11.0 K/mm3 Normal WBC 6.2 LAB L100.1200 4.6-6.2 M/mm3 Low RBC 3.16 LAB L100.1300 13.0-16.5 g/dl Low HGB 9.5 LAB L100.1400 40-54 % Low HCT 29.4 LAB L100.1500 80-94 fL Normal MCV 93.0 LAB L100.1600 27.0-32.0 pg Normal MCH 30.1 LAB L100.1700 32-36 g/gl Normal MCHC 32.3 LAB L100.1810 11.6-14.6 % High RDW CV 16.8 LAB L100.1820 35.1-43.9 fl High RDW SD 56.8 LAB L100.1900 150-450 K/mm3 Low PLT 82 LAB L100.2000 6.2-12.0 fl Normal MPV 9.9 LAB L100.2100 47-70 % High NEUT% 88.3 LAB L100.2200 19-41 % Low LY% 7.4 LAB L100.2300 0-10 % Normal MONO% 2.9 LAB L100.2400 0-5 % Normal EO% 0.2 LAB L100.2500 0-1 % Normal BASO% 0.2 LAB L100.2550 0.0-0.9 % High IM GRAN % 1.000 Result Comment: IG% - Immature Granulocytes (promyelocytes, myelocytes and metamyelocytes) > 1% indicates that a LEFT SHIFT is Present. LAB L100.2620 2.0-7.7 X10 3/uL Normal Absolute Neut 5.5 LAB L100.2720 0.83-4.51 X10 3/ul Low Absolute Lymph 0.46 LAB L100.4500 Normal SMEAR COMMENT COMMENT Result Comment: SLIDE SCANNED - LYMPHOPENIA NOTED. Performed By: #### L100.0100 #### [facility] [address] [place], [place], [id number] ONCOLOGY VISIT REPORT Observed: 11/03/2017 Status: F Source: [place] 9:55 AM [facility] [place] REPOSITORY [facility] [address] [place] [address] OFFICE VISIT Date of Service: 11/03/17 0950 MR#: [id number] Acct: [id number] Name: SHAILA STOLL Rep #: [id number] : 1950 From: Dago Leger MD Age/Sex: 67/M Location: [facility] Status: Signed - Problem List (1) Cancer of lower lobe of left lung Status: Acute (2) Regional lymph node metastasis present Status: Acute (3) Prostate cancer Status: Chronic Comment: surgery , R.T. 2015 PSA relapse 2016 ADT (4) Anemia Status: Acute - Date of Service Date of Service:: 11/03/17 - Chief Complaint Lung cancer on treatment - History of Present Illness Patient is a 66-year-old gentleman smoker who quit over 20 years ago after a 30+ pack year smoking who presented with a months history of increasing dyspnea on exertion and wheezing. Chest x-ray followed by a CT scan of the chest revealed a left lower lobe mass. Bronchoscopy by Dr. Mullen on 05/19/2017 showed a left lower lobe endobronchial lesion and biopsy confirmed an adenocarcinoma. Staging PET/CT IMPRESSION: 1. ABNORMAL EXAMINATION INDICATIVE OF MALIGNANT VIABLE NEOPLASM. 2. Increased glucose concentration heterogeneously defined in the left mid-lower posteromedial, posterior hemithorax, left lower lobe, fulfills quantitative criteria for viable neoplasm. 3. The increase in glucose concentration observed in the bilateral thoracic perihilum does not fulfill strict quantitative criteria for viable neoplasm with single point technique. 4. Asymmetric increased glucose concentration noted in the left hemipelvis contiguous to the subcutaneous fat may be further investigated with Brain MRI showed no evidence of metastatic disease. Pulmonary function tests are satisfactory for surgical resection. His past medical history is notable for prostate cancer presenting with an elevated PSA of 42. Patient is status post radical prostatectomy in October 2014 for a Keatchie score 9 adenocarcinoma involving about 80% of the prostate with extra prostatic extension extensive positive margins and lymphovascular invasion as well as tory-neural invasion. Following his surgery patient underwent adjuvant radiation therapy concluded in 2014. At the completion of his treatment his PSA was less than 0.1 however by 2015 PSA relapse prompted initiation of ADT by his urologist which he continues to date with the most recent PSA of less than 0.1. His past medical history is also notable for multiple sclerosis with residual left lower extremity weakness but no recent flares. Treatment: On July 03, 2017 he underwent left lower lobe sleeve lobectomy at [facility] by Dr. Alfonso. Final pathology revealed a 6.5 cm single focus adenocarcinoma G2 negative margins no visceral pleural invasion no lymphovascular invasion and metastatic cancer was found in 1 lymph node position 11 mL (N1) of 16 N1 nodes dissected and non- and 8 N2 nodes dissected. Adjuvant Carbo-Alimta 10/13/2017- Delay as per patient request (insurance change) - Past Medical/Social History Past Medical History Past Medical History: Hyperlipidemia,Hypertension Other Past Medical History: MS Cancer: Lung cancer,Prostate cancer Past Surgical History Surgical: Prostatectomy Family History Paternal Past Medical History: Liver disease Paternal History of Cancer Liver cancer,Prostate cancer Maternal Past Medical History: Unknown Maternal History of Cancer: Bone cancer Social History Social History: No changes Smoking Status Former smoker Review of Systems Constitutional:: Reports: Weakness, Fatigue. Denies: Fever, Sweats, Weight loss, Appetite change, Chills Cardiovascular:: Reports: Ankle swelling - Unchanged, Dyspnea on exertion. Denies: Chest pain, Palpitations, Orthopnea, PND, Shortness of breath Respiratory: Reports: Shortness of breath upon exertion. Denies: Cough, Hemoptysis, Shortness of Breath, Wheezing Gastrointestinal:: Denies: Abdominal pain, Nausea, Vomiting, Diarrhea, Constipation, Hematochezia Genitourinary: Denies: Dysuria, Hematuria, 15, Flank pain Musculoskeletal:: Denies: Back pain, Myalgia, Arthralgia Skin: Denies: Rash, Skin Changes, Wounds Neurological:: Reports: Paralysis - Old left leg weakness. Denies: Headache, Dizziness, Visual changes, Tinnitus, Hearing loss Psychiatric: Denies: Anxiety, Depression, Homicidal Ideations, Suicidal Ideations Vital Signs Height 5 ft 10 in Weight: 86.545 kg Weight in Pounds 190.8 lbs Pulse Ox 98 - Physical Exam General: Alert, Oriented x3, No apparent distress, - - ECOG 1 HEENT: Atraumatic, PERRLA, EOMI, Normocephalic Oropharynx:: Dry mucosa Neck:: Supple, Trachea midline. Negative for: JVD, bilateral Cardiac:: Regular rate, Regular rhythm, Normal S1, Normal S2. Negative for: Murmur Lungs: Clear to auscultation, Diminished, Excusion symmetrical. Negative for: Rhonchi, Wheezes Abdomen:: Bowel sounds x 4, Soft, Non-tender, Non-distended. Negative for: Hepatosplenomegaly Extremities:: Negative for: Cyanosis, Edema Neurological: Cranial nerves II-XII grossly intact, - - Left leg weakness (chronic) Skin:: Negative for: Lesions, Rash, Petechiae, Ecchymosis Psychiatric:: Appropriate affect, Euthymic Lymphatics:: Negative for: Cervical lymphadenopathy, Supraclavicular lymphadenopathy Laboratory Data: Laboratory Tests WBC 13.8 H (4.4-11.0) K/mm3 RBC 3.08 L (4.6-6.2) M/mm3 Hgb 9.3 L (13.0-16.5) g/dl Hct 28.5 L (40-54) % Assessment and Plan 66-year-old male with: 1. Non-small cell lung cancer, adenocarcinoma histology, left lower lobe. Patient is status post left lower lobectomy and lymph node dissection at [facility] July 03, 2017 with R0 resection. Pathologic stage IIB(T2b, N1, M0). Started adjuvant chemotherapy with carboplatin Alimta for 4 cycles in October 2017 (as per patient request of delay) supported with antiemetics, steroids, B12 and folic acid and primary prophylaxis against febrile neutropenia with Neulasta due to increased risk for febrile neutropenia. Start cycle 2/4 today These recommendations are based on my review of the most recent NCCN guidelines. 2. A very high risk prostate cancer status post radical prostatectomy followed by adjuvant radiation therapy in 2014 and has been on ADT since 2016 due to PSA relapse. Disease seems to be in remission on therapy at this time. 3- Pulmonary embolism and bilateral lower extremities DVT, unprovoked 10/02/2017. This raises concern for a possible underlying malignancy induced hypercoagulability and therefore advice systemic anticoagulation for at least one year probably long-term. Treatment options between Lovenox, Coumadin or Eliquis with the pros and cons of each discussed with the patient. Patient elects for Eliquis. 4-anemia, probably multifactorial including that of cancer and chemotherapy, we will support with transfusions if needed (hemoglobin less than 7-8 g per DL depending on symptoms) and advised to take one iron tablet orally daily Comorbid condition residual left lower extremity weakness from a remote attack with multiple sclerosis. Prostate cancer in remission on LHRH therapy. Patient was seen was his impression and recommendations discussed Medications: Prescriptions This Visit Medication Instructions Recorded Ascorbic Acid [Vitamin C] 500 mg PO DAILY@0800 10/06/17 Bisprolol Fumarate 5 mg PO DAILY 11/03/17 Primary Care Provider: Fernando Mock MD Referring Provider: 11/03/17 0982 <Electronically signed by Dago Leger MD> Date Dago Dennis Signature: Date (if applicable) CC: CBC W/DIFF, AUTOMATED Collected: 11/03/2017 Status: F Source: [place] 8:39 AM [facility] [place] REPOSITORY TYPE CODE TESTS RESULT OUT OF RANGE REFERENCE UNITS LAB L100.1000 4.4-11.0 K/mm3 High WBC 13.8 LAB L100.1200 4.6-6.2 M/mm3 Low RBC 3.08 LAB L100.1300 13.0-16.5 g/dl Low HGB 9.3 LAB L100.1400 40-54 % Low HCT 28.5 LAB L100.1500 80-94 fL Normal MCV 92.5 LAB L100.1600 27.0-32.0 pg Normal MCH 30.2 LAB L100.1700 32-36 g/gl Normal MCHC 32.6 LAB L100.1810 11.6-14.6 % High RDW CV 16.2 LAB L100.1820 35.1-43.9 fl High RDW SD 49.4 LAB L100.1900 150-450 K/mm3 Normal PLT 357 LAB L100.2000 6.2-12.0 fl Normal MPV 8.6 LAB L100.2100 47-70 % High NEUT% 89.7 LAB L100.2200 19-41 % Low LY% 5.0 LAB L100.2300 0-10 % Normal MONO% 4.0 LAB L100.2400 0-5 % Normal EO% 0.0 LAB L100.2500 0-1 % Normal BASO% 0.1 LAB L100.2550 0.0-0.9 % High IM GRAN % 1.200 Result Comment: IG% - Immature Granulocytes (promyelocytes, myelocytes and metamyelocytes) > 1% indicates that a LEFT SHIFT is Present. LAB L100.2620 2.0-7.7 X10 3/uL High Absolute Neut 12.4 LAB L100.2720 0.83-4.51 X10 3/ul Low Absolute Lymph 0.69 Performed By: #### L100.0100, L500.4050 #### [facility] [address] [place], [address] COMPREHENSIVE METABOLIC Collected: 11/03/2017 Status: F Source: [place] [facility] 8:38 AM [facility] [place] REPOSITORY TYPE CODE TESTS RESULT OUT OF RANGE REFERENCE UNITS LAB L501.0100 74-106 mg/dL High GLU 147 Result Comment: Fasting Glucose result greater than or equal to 126 mg/dL suggests DIABETES MELLITUS per A.D.A. criteria. Please note revised GLUCOSE reference range effective 2017. LAB L501.1000 7-18 mg/dL High BUN 21 LAB L501.1100 0.70-1.30 mg/dL Normal CREAT,SERUM 1.06 Result Comment: The validity of the calculated GFR AND GFRAA in patients over 70 years has not been determined. Clinical correlation is essential. LAB L501.1110 >60 mL/min Normal EST GFR 75 Result Comment: Non- GFR Calc LAB L501.1115 >60 mL/min Normal EST GFR - AA 90 Result Comment: GFR Calc LAB L501.1255 ml/min Normal Estimated CRCL 71.74 LAB L501.1300 10-20 RATIO Normal BUN/CRE 19.8 LAB L501.1500 6.4-8. g/dL Normal 2 T PROT 8.0 LAB L501.1800 3.2-5. g/dL Normal 0 ALB 3.4 LAB L501.1950 2.2-4. g/dL High 2 GLOB 4.6 LAB L501.2000 0.9-2. RATIO Low 4 A/G 0.7 LAB L501.2200 8.5-10 mg/dL Normal .1 CA 8.8 LAB L501.4100 15-37 U/L Normal AST 18 LAB L501.4305 45-117 U/L Normal ALK P 100 LAB L501.4405 16-61 U/L Normal ALT 29 Result Comment: Please note revised ALT reference range effective 2017. LAB L501.4600 0.20-1.00 mg/dL Normal T BILI 0.20 LAB L501.5300 136-145 mmol/L Normal NA 138 LAB L501.5600 3.5-5.1 mmol/L Normal K 3.9 LAB L501.5900 98-107 mmol/L Normal CL 104 LAB L501.6100 21.0-32.0 mmol/L Normal CO2 24.0 LAB L501.6200 5-15 Normal GAP 10 Performed By: #### L100.0100, L500.4050 #### [facility] [address] [place], [address] PSA,TOTAL- DIAGNOSTIC Collected: 10/13/2017 Status: F Source: [place] 11:31 AM [facility] [place] REPOSITORY Order Comment: Reason for Laboratory Test PRE-CHEMO/ROUTINE Reason for Laboratory Test PRE-CHEMO TYPE CODE TESTS RESULT OUT OF RANGE REFERENCE UNITS LAB L501.9940 0.0-4.0 ng/mL PSA, Normal DIAGNOSTIC < 0.01 Result Comment: This test was performed using the TPSA assay method for the [employer] chemistry system. Values obtained with different assay methods cannot be used interchangably. When changing PSA assays in the course of monitoring a patient, additional sequential testing should be carried out to confirm baseline values. Performed By: #### L501.9940, L503.6030, L503.6550 #### [facility] [address] [place], [place], [address] IRON+IRON BINDING Collected: 10/13/2017 Status: F Source: [facility] 11:31 AM [facility] [place] REPOSITORY Order Comment: Reason for Laboratory Test PRE-CHEMO/ROUTINE Reason for Laboratory Test PRE-CHEMO TYPE CODE TESTS RESULT OUT OF RANGE REFERENCE UNITS LAB L503.6075 250-450 ug/dL TIBC Normal 310 LAB L503.6150 65-175 ug/dL IRON Normal 135 LAB L503.6250 15.0-55.0 % IRON Normal SATURATION 43.5 Performed By: #### L501.9940, L503.6030, L503.6550 #### [facility] [address] [place], [address] FERRITIN Collected: 10/13/2017 Status: F Source: [place] 11:31 AM [facility] [place] REPOSITORY Order Comment: Reason for Laboratory Test PRE-CHEMO/ROUTINE Reason for Laboratory Test PRE-CHEMO TYPE CODE TESTS RESULT OUT OF REFERENCE UNITS RANGE LAB L503.6550 26-388 ng/mL High FERRITIN 686 Performed By: #### L501.9940, L503.6030, L503.6550 #### [facility] [address] [place], [address] ONCOLOGY VISIT REPORT Observed: 10/13/2017 Status: F Source: [place] 11:15 AM [facility] [place] REPOSITORY [facility] [address] [place] [address] OFFICE VISIT Date of Service: 10/13/17 1111 MR#: [id number] Acct: [id number] Name: SHAILA STOLL Rep #: [id number] : 1950 From: Dago Leger MD Age/Sex: 66/M Location: [facility]MD Status: Signed - Problem List (1) Cancer of lower lobe of left lung Status: Acute (2) Regional lymph node metastasis present Status: Acute (3) Prostate cancer Status: Chronic Comment: surgery , R.T. 2014 PSA relapse 2016 ADT (4) Anemia Status: Acute - Date of Service Date of Service:: 10/13/17 - Chief Complaint Lung cancer to start chemotherapy - History of Present Illness Patient is a 66-year-old gentleman smoker who quit over 20 years ago after a 30+ pack year smoking who presented with a months history of increasing dyspnea on exertion and wheezing. Chest x-ray followed by a CT scan of the chest revealed a left lower lobe mass. Bronchoscopy by Dr. Mullen on 05/19/2017 showed a left lower lobe endobronchial lesion and biopsy confirmed an adenocarcinoma. Staging PET/CT IMPRESSION: 1. ABNORMAL EXAMINATION INDICATIVE OF MALIGNANT VIABLE NEOPLASM. 2. Increased glucose concentration heterogeneously defined in the left mid-lower posteromedial, posterior hemithorax, left lower lobe, fulfills quantitative criteria for viable neoplasm. 3. The increase in glucose concentration observed in the bilateral thoracic perihilum does not fulfill strict quantitative criteria for viable neoplasm with single point technique. 4. Asymmetric increased glucose concentration noted in the left hemipelvis contiguous to the subcutaneous fat may be further investigated with Brain MRI showed no evidence of metastatic disease. Pulmonary function tests are satisfactory for surgical resection. His past medical history is notable for prostate cancer presenting with an elevated PSA of 42. Patient is status post radical prostatectomy in October 2014 for a Keatchie score 9 adenocarcinoma involving about 80% of the prostate with extra prostatic extension extensive positive margins and lymphovascular invasion as well as tory-neural invasion. Following his surgery patient underwent adjuvant radiation therapy concluded in 2014. At the completion of his treatment his PSA was less than 0.1 however by 2016 PSA relapse prompted initiation of ADT by his urologist which he continues to date with the most recent PSA of less than 0.1. His past medical history is also notable for multiple sclerosis with residual left lower extremity weakness but no recent flares. Treatment: On July 03, 2017 he underwent left lower lobe sleeve lobectomy at [facility] by Dr. Alfonso. Final pathology revealed a 6.5 cm single focus adenocarcinoma G2 negative margins no visceral pleural invasion no lymphovascular invasion and metastatic cancer was found in 1 lymph node position 11 mL (N1) of 16 N1 nodes dissected and non- and 8 N2 nodes dissected. Adjuvant Carbo-Alimta 10/13/2017- Delay as per patient request (insurance change) - Interval History Recovered from recent pulmonary embolism and pneumonia and concluded antibiotics - Past Medical/Social History Past Medical History Past Medical History: Hyperlipidemia,Hypertension Other Past Medical History: MS Cancer: Lung cancer,Prostate cancer Past Surgical History Surgical: Prostatectomy Family History Paternal Past Medical History: Liver disease Paternal History of Cancer Liver cancer,Prostate cancer Maternal Past Medical History: Unknown Maternal History of Cancer: Bone cancer Social History Social History: No changes Smoking Status Former smoker Review of Systems Constitutional:: Reports: Fatigue. Denies: Fever, Sweats, Weight loss, Appetite change, Chills Cardiovascular:: Reports: Dyspnea on exertion, Peripheral edema. Denies: Chest pain, Palpitations, Orthopnea, PND, Shortness of breath Respiratory: Reports: Shortness of breath upon exertion. Denies: Cough, Hemoptysis, Shortness of Breath, Wheezing Gastrointestinal:: Denies: Abdominal pain, Nausea, Vomiting, Diarrhea, Constipation, Hematochezia Genitourinary: Denies: Dysuria, Hematuria, 15, Flank pain Musculoskeletal:: Denies: Back pain, Myalgia, Arthralgia Skin: Denies: Rash, Skin Changes, Wounds Neurological:: Denies: Headache, Dizziness, Visual changes, Tinnitus, Hearing loss Psychiatric: Denies: Anxiety, Depression, Homicidal Ideations, Suicidal Ideations Vital Signs Height 5 ft 10 in Weight: 85.91 kg Weight in Pounds 189.4 lbs Pulse Ox 97 - Physical Exam General: Alert, Oriented x3, No apparent distress, - - ECOG 1-2 HEENT: Atraumatic, PERRLA, EOMI, Normocephalic Oropharynx:: Dry mucosa Neck:: Supple, Trachea midline. Negative for: JVD, bilateral Cardiac:: Regular rate, Regular rhythm, Normal S1, Normal S2. Negative for: Murmur Lungs: Clear to auscultation, Diminished, Excusion symmetrical. Negative for: Rhonchi, Wheezes Abdomen:: Bowel sounds x 4, Soft, Non-tender, Non-distended. Negative for: Hepatosplenomegaly Extremities:: Edema - Wearing compression stockings, left leg 2+ edema. Negative for: Cyanosis Neurological: Neuro grossly intact Skin:: Negative for: Lesions, Rash, Petechiae, Ecchymosis Psychiatric:: Appropriate affect, Euthymic Lymphatics:: Negative for: Cervical lymphadenopathy, Supraclavicular lymphadenopathy Laboratory Data: Laboratory Tests WBC 14.2 H (4.4-11.0) K/mm3 RBC 3.64 L (4.6-6.2) M/mm3 Hgb 10.5 L (13.0-16.5) g/dl Hct 32.6 L (40-54) % Assessment and Plan 66-year-old male with: 1. Non-small cell lung cancer, adenocarcinoma histology, left lower lobe. Patient is status post left lower lobectomy and lymph node dissection at [facility] July 03, 2017 with R0 resection. Pathologic stage IIB(T2b, N1, M0). Advised a course of adjuvant chemotherapy with carboplatin Alimta for 4 cycles supported with antiemetics, steroids, B12 and folic acid and primary prophylaxis against febrile neutropenia with Neulasta due to increased risk for febrile neutropenia. Start cycle 1 today These recommendations are based on my review of the most recent NCCN guidelines. Delay till 10/2017 (patient request due to insurance changes). 2. A very high risk prostate cancer status post radical prostatectomy followed by adjuvant radiation therapy in 2015 and has been on ADT since 2016 due to PSA relapse. Disease seems to be in remission on therapy at this time. 3- Pulmonary embolism and bilateral lower extremities DVT, unprovoked 10/02/2017. This raises concern for a possible underlying malignancy induced hypercoagulability and therefore advice systemic anticoagulation for at least one year probably long-term. Treatment options between Lovenox, Coumadin or Eliquis with the pros and cons of each discussed with the patient. Patient elects for Eliquis. 4-anemia, probably multifactorial including that of cancer, we will support with transfusions if needed (hemoglobin less than 7-8 g per DL depending on symptoms) and advised to take one iron tablet orally daily Comorbid condition residual left lower extremity weakness from a remote attack with multiple sclerosis. Prostate cancer in remission on LHRH therapy. Patient was seen was his impression and recommendations discussed Medications: Prescriptions This Visit Medication Instructions Recorded Folic Acid 1 mg PO DAILY@0800 #30 tab 09/15/17 Ascorbic Acid [Vitamin C] 500 mg PO DAILY@0800 10/06/17 Primary Care Provider: Fernando Mock MD Referring Provider: 10/13/17 1115 <Electronically signed by Dago Leger MD> Date Dago Leger MD Cosigner Signature: Date (if applicable) CC: CBC W/DIFF, AUTOMATED Collected: 10/13/2017 Status: F Source: [place] 10:01 AM [facility] [place] REPOSITORY TYPE CODE TESTS RESULT OUT OF RANGE REFERENCE UNITS LAB L100.1000 4.4-11.0 K/mm3 High WBC 14.2 LAB L100.1200 4.6-6.2 M/mm3 Low RBC 3.64 LAB L100.1300 13.0-16.5 g/dl Low HGB 10.5 LAB L100.1400 40-54 % Low HCT 32.6 LAB L100.1500 80-94 fL Normal MCV 89.6 LAB L100.1600 27.0-32.0 pg Normal MCH 28.8 LAB L100.1700 32-36 g/gl Normal MCHC 32.2 LAB L100.1810 11.6-14.6 % Normal RDW CV 14.5 LAB L100.1820 35.1-43.9 fl High RDW SD 47.8 LAB L100.1900 150-450 K/mm3 Normal PLT 290 LAB L100.2000 6.2-12.0 fl Normal MPV 8.4 LAB L100.2100 47-70 % High NEUT% 91.0 LAB L100.2200 19-41 % Low LY% 4.3 LAB L100.2300 0-10 % Normal MONO% 4.3 LAB L100.2400 0-5 % Normal EO% 0.0 LAB L100.2500 0-1 % Normal BASO% 0.0 LAB L100.2550 0.0-0.9 % Normal IM GRAN % 0.400 Result Comment: IG% - Immature Granulocytes (promyelocytes, myelocytes and metamyelocytes) > 1% indicates that a LEFT SHIFT is Present. LAB L100.2620 2.0-7.7 X10 3/uL High Absolute Neut 13.0 LAB L100.2720 0.83-4.51 X10 3/ul Low Absolute Lymph 0.61 Performed By: #### L100.0100 #### [facility] [address] [place], [place], [address] COMPREHENSIVE METABOLIC Collected: 10/13/2017 Status: F Source: [facility] 10:01 AM [facility] [place] REPOSITORY TYPE CODE TESTS RESULT OUT OF RANGE REFERENCE UNITS LAB L501.0100 74-106 mg/dL High GLU 158 Result Comment: Fasting Glucose result greater than or equal to 126 mg/dL suggests DIABETES MELLITUS per A.D.A. criteria. Please note revised GLUCOSE reference range effective 2017. LAB L501.1000 7-18 mg/dL High BUN 19 LAB L501.1100 0.70-1.30 mg/dL Normal CREAT,SERUM 1.09 Result Comment: The validity of the calculated GFR AND GFRAA in patients over 70 years has not been determined. Clinical correlation is essential. LAB L501.1110 >60 mL/min Normal EST GFR 72 Result Comment: Non- GFR Calc LAB L501.1115 >60 mL/min Normal EST GFR - AA 87 Result Comment: GFR Calc LAB L501.1255 ml/min Normal Estimated CRCL 70.69 LAB L501.1300 10-20 RATIO Normal BUN/CRE 17.4 LAB L501.1500 6.4-8. g/dL High 2 T PROT 8.6 LAB L501.1800 3.2-5. g/dL Normal 0 ALB 3.4 LAB L501.1950 2.2-4. g/dL High 2 GLOB 5.2 LAB L501.2000 0.9-2. RATIO Low 4 A/G 0.7 LAB L501.2200 8.5-10 mg/dL Normal .1 CA 8.8 LAB L501.4100 15-37 U/L Normal AST 23 LAB L501.4305 45-117 U/L High ALK P 133 LAB L501.4405 16-61 U/L Normal ALT 36 Result Comment: Please note revised ALT reference range effective 2017. LAB L501.4600 0.20-1.00 mg/dL Normal T BILI 0.40 LAB L501.5300 136-145 mmol/L Normal NA 137 LAB L501.5600 3.5-5.1 mmol/L Normal K 3.9 LAB L501.5900 98-107 mmol/L Normal CL 105 LAB L501.6100 21.0-32.0 mmol/L Normal CO2 23.0 LAB L501.6200 5-15 Normal GAP 9 Performed By: #### L500.4050 #### [facility] [address] [place], [address] 12 LEAD ELECTROCARDIOGRAM Observed: 10/06/2017 Status: F Source: [place] 4:22 PM [facility] REPOSITORY [facility] [address] [place] [address] 12 Lead EKG 10/02/172014 MR#: [id number] Acct: [id number] Name: JERMANSHAILA Davi Rep #: [id number] : 1950 66 From: Rory Wall MD Attending Dr: Skye Haro Status: DIS IN Ordering Dr: Danyel Cai MD Date: 10/02/17 Location: [facility] Sex: M C Admitted: 10/02/17 Test Reason : Blood Pressure : / mmHG Vent. Rate : 098 BPM Atrial Rate : 098 BPM P-R Int : 120 ms QRS Dur : 082 ms QT Int : 360 ms P-R-T Axes : 054 042 035 degrees QTc Int : 459 ms Normal sinus rhythm Normal ECG Confirmed by RORY WALL MD ([id number]), food editor SUMA VANEGAS ([id number]) on 10/06/2017 4:22:26 PM Referred By: Tavon Mullen Confirmed By:RORY WALL MD 10/06/17 1622 Date Rory Wall MD CC: Danyel Cai MD; Katlyn Mullins DO Signed ONCOLOGY VISIT REPORT Observed: 10/06/2017 Status: F Source: [place] 12:01 PM [facility] REPOSITORY [facility] [address] [place] [address] OFFICE VISIT Date of Service: 10/06/17 1056 MR#: [id number] Acct: [id number] Name: SHAILA STOLL Rep #: [id number] : 1950 From: Dago Leger MD Age/Sex: 66/M Location: OMD Status: Signed - Problem List (1) Prostate cancer Status: Chronic Comment: surgery , R.T. 2015 PSA relapse 2016 ADT (2) Cancer of lower lobe of left lung Status: Acute (3) Regional lymph node metastasis present Status: Acute (4) Anemia Status: Acute - Date of Service Date of Service:: 10/06/17 - Chief Complaint Lung cancer - History of Present Illness Patient is a 66-year-old gentleman smoker who quit over 20 years ago after a 30+ pack year smoking who presented with a months history of increasing dyspnea on exertion and wheezing. Chest x-ray followed by a CT scan of the chest revealed a left lower lobe mass. Bronchoscopy by Dr. Mullen on 05/19/2017 showed a left lower lobe endobronchial lesion and biopsy confirmed an adenocarcinoma. Staging PET/CT IMPRESSION: 1. ABNORMAL EXAMINATION INDICATIVE OF MALIGNANT VIABLE NEOPLASM. 2. Increased glucose concentration heterogeneously defined in the left mid-lower posteromedial, posterior hemithorax, left lower lobe, fulfills quantitative criteria for viable neoplasm. 3. The increase in glucose concentration observed in the bilateral thoracic perihilum does not fulfill strict quantitative criteria for viable neoplasm with single point technique. 4. Asymmetric increased glucose concentration noted in the left hemipelvis contiguous to the subcutaneous fat may be further investigated with Brain MRI showed no evidence of metastatic disease. Pulmonary function tests are satisfactory for surgical resection. His past medical history is notable for prostate cancer presenting with an elevated PSA of 42. Patient is status post radical prostatectomy in October 2014 for a Keatchie score 9 adenocarcinoma involving about 80% of the prostate with extra prostatic extension extensive positive margins and lymphovascular invasion as well as tory-neural invasion. Following his surgery patient underwent adjuvant radiation therapy concluded in 2014. At the completion of his treatment his PSA was less than 0.1 however by 2016 PSA relapse prompted initiation of ADT by his urologist which he continues to date with the most recent PSA of less than 0.1. His past medical history is also notable for multiple sclerosis with residual left lower extremity weakness but no recent flares. Treatment: On July 03, 2017 he underwent left lower lobe sleeve lobectomy at [facility] by Dr. Alfonso. Final pathology revealed a 6.5 cm single focus adenocarcinoma G2 negative margins no visceral pleural invasion no lymphovascular invasion and metastatic cancer was found in 1 lymph node position 11 mL (N1) of 16 N1 nodes dissected and non- and 8 N2 nodes dissected. Adjuvant Carbo-Alimta Delay as per patient request (insurance change) - Interval History Hospitalized October 02, 2017 was acute pulmonary embolism and bilateral lower extremities DVTs, no preceding inactivity or trauma. On antibiotics for a possible pneumonia to conclude October 10 - Past Medical/Social History Past Medical History Past Medical History: Hyperlipidemia,Hypertension Other Past Medical History: MS Cancer: Lung cancer,Prostate cancer Past Surgical History Surgical: Prostatectomy Family History Paternal Past Medical History: Liver disease Paternal History of Cancer Liver cancer,Prostate cancer Maternal Past Medical History: Unknown Maternal History of Cancer: Bone cancer Social History Smoking Status Former smoker Review of Systems Constitutional:: Reports: Fatigue. Denies: Fever, Sweats, Weight loss, Appetite change, Chills Cardiovascular:: Reports: Dyspnea on exertion. Denies: Chest pain, Palpitations, Orthopnea, PND, Shortness of breath Respiratory: Reports: Shortness of breath upon exertion. Denies: Cough, Hemoptysis, Shortness of Breath, Wheezing Gastrointestinal:: Denies: Abdominal pain, Nausea, Vomiting, Diarrhea, Constipation, Hematochezia Genitourinary: Denies: Dysuria, Hematuria, 15, Flank pain Musculoskeletal:: Denies: Back pain, Myalgia, Arthralgia Skin: Denies: Rash, Skin Changes, Wounds Neurological:: Denies: Headache, Dizziness, Visual changes, Tinnitus, Hearing loss Psychiatric: Denies: Anxiety, Depression, Homicidal Ideations, Suicidal Ideations Vital Signs Height 5 ft 10 in Weight: 87.997 kg Weight in Pounds 194.0 lbs Pulse Ox 99 - Physical Exam General: Alert, Oriented x3, No apparent distress, - - ECOG 1-2 HEENT: Atraumatic, PERRLA, EOMI, Normocephalic Oropharynx:: Dry mucosa Neck:: Supple, Trachea midline. Negative for: JVD, bilateral Cardiac:: Regular rate, Regular rhythm, Normal S1, Normal S2. Negative for: Murmur Lungs: Clear to auscultation, Excusion symmetrical. Negative for: Rhonchi, Wheezes Abdomen:: Soft, Non-tender, Non-distended. Negative for: Hepatosplenomegaly Extremities:: Negative for: Cyanosis, Edema Neurological: Neuro grossly intact Skin:: Negative for: Lesions, Rash, Petechiae, Ecchymosis Psychiatric:: Appropriate affect, Euthymic Lymphatics:: Negative for: Cervical lymphadenopathy, Supraclavicular lymphadenopathy Laboratory Data: Reviewed in EMR Diagnostic Data: CT chest October 2017 report and images reviewed in EMR Assessment and Plan 66-year-old male with: 1. Non-small cell lung cancer, adenocarcinoma histology, left lower lobe. Patient is status post left lower lobectomy and lymph node dissection at [facility] July 03, 2017 with R0 resection. Pathologic stage IIB(T2b, N1, M0). Advised a course of adjuvant chemotherapy with carboplatin Alimta for 4 cycles supported with antiemetics, steroids, B12 and folic acid and primary prophylaxis against febrile neutropenia with Neulasta due to increased risk for febrile neutropenia These recommendations are based on my review of the most recent NCCN guidelines. Delay till 10/2017 (patient request due to insurance changes). We will plan to start in 1 week after he concludes a course of antibiotics for a possible pneumonia and motor recovery after the recent PE 2. A very high risk prostate cancer status post radical prostatectomy followed by adjuvant radiation therapy in 2014 and has been on ADT since 2016 due to PSA relapse. Disease seems to be in remission on therapy at this time. 3- Pulmonary embolism and bilateral lower extremities DVT, unprovoked 10/02/2017. This raises concern for a possible underlying malignancy induced hypercoagulability and therefore advice systemic anticoagulation for at least one year probably long-term. Treatment options between Lovenox, Coumadin or Eliquis with the pros and cons of each discussed with the patient. Patient elects for Eliquis. 4-anemia, probably multifactorial including that of cancer, we will support with transfusions if needed (hemoglobin less than 7-8 g per DL depending on symptoms) and advised to take one iron tablet orally daily Comorbid condition residual left lower extremity weakness from a remote attack with multiple sclerosis. Prostate cancer in remission on LHRH therapy. Patient was seen was his impression and recommendations discussed Medications: Prescriptions This Visit Medication Instructions Recorded Folic Acid 1 mg PO DAILY@0800 #30 tab 09/15/17 Primary Care Provider: Fernando Mock MD Referring Provider: 10/06/17 1201 <Electronically signed by Dago Leger MD> Date Dago Leger MD Cosigner Signature: Date (if applicable) CC: Fernando Mock DO VENOUS DUPLEX LOWER Observed: 10/05/2017 Status: F Source: [place] EXTREMITY 6:04 AM [facility] [place] REPOSITORY [facility] Cardiovascular Services [address] [place] [address] Venous Duplex - Michele Extrem 10/03/17 1107 MR#: [id number] Acct: [id number] Name: SHAILA STOLL Rep #: [id number] : 1950 66 From: Katlyn Luna MD Attending Dr: Skye Haro Status: DIS IN Ordering Dr: Skye Haro Date: 10/03/17 Location: [facility] Sex: M C Admitted: 10/02/17 Reason For Study: PE RIGHT LEFT CFV is partially compressible with decreased CFV is compressible, spontaneous, phasic, flow. competent, and demonstrates normal FV and POP V are dilated and noncompressible augmentation. with no flow. FV is compressible, spontaneous, phasic, T/P Trunk, PTV, Peroneal V, Gastroc V, and competent and demonstrates normal Soleus V are dilated and noncompressible. augmentation. GSV is normal. POP V is compressible, spontaneous, phasic, Procedure competent and demonstrates normal Exam performed portable in patient room. augmentation. The exam was diagnostic. LT PerV is compressible. A preliminary report was called and/or faxed T/P Trunk and PTV are dilated and to the pt's RN. noncompressible. GSV is dilated and noncompressible from the ankle to the knee. Remainder of GSV is compressible. Interpretation Summary Acute deep venous thrombosis right common femoral, femoral, popliteal, tibioperoneal trunk, posterior tibial, gastrocnemius, and soleus veins. Acute deep venous thrombosis left tibioperoneal trunk and posterior tibial veins. Superficial thrombophlebitis left great saphenous vein from the ankle to the knee. Ordering Physician: Skye Haro Performed By: Hamilton Anne RVT 10/05/17 0604 Date Katlyn Luna MD CC: Skye Haro; Katlyn Mullins DO Date Dictated: 10/03/17 1107 Date Transcribed: 10/05/17 0604 Flash Ranging Crewmember: Signed DISCHARGE SUMMARY Observed: 10/04/2017 Status: F Source: [place] 10:45 AM [facility] [place] REPOSITORY [facility] Medical Records Department [address] [place] [address] Discharge Summary 10/04/17 1037 MR#: [id number] Acct: [id number] Name: SHAILA STOLL Rep #: [id number] : 1950 66 From: Skye Haro PCP: Katlyn Mullins DO Status: ADM IN Y Location: [place] [address] Discharge Date and Diagnosis - Problem List Patient Problems: Active and Suspected Problems (Last Reviewed 09/24/17 @ 15:20 by Miguelina Saenz NP-C) Pulmonary embolism (Acute) HCAP (healthcare-associated pneumonia) (Acute) Date of Admission: 10/02/17 Date of Discharge: 10/04/17 - Primary Discharge Diagnosis Active and Suspected Problems (Last Reviewed 09/24/17 @ 15:20 by Miguelina Saenz NP-C) (1) Dyspnea secondary to Acute BL Pulmonary Embolism, HCAP (see #2) (2) Dyspnea also secondary to concurrently noted HCAP Pneumonia (3) Prostate cancer (4) Non-small adenocarcinoma cell lung cancer (5) Multiple Sclerosis (6) Hypertension (7) Hyperlipidemia (8) GERD - Secondary Discharge Diagnosis Chronic Problems (Last Reviewed 09/24/17 @ 15:20 by Miguelina Saenz NP-C) Adenocarcinoma of lung (Chronic) Hypertension (Chronic) 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) [facility] 07/03/17 Prostate cancer (Chronic) surgery , R.T. 2014 PSA relapse 2016 ADT Multiple sclerosis (Chronic) left leg weakness Hospital Course and Treatment Dr. Leger Hem/Onc Evaluated per JUAN LUIS [place] Operations: None Procedures: EKG Summary of Care Provided: The patient is a 66 y/o M w/ PMHx: HTN, HLD, Prostate cancer s/p radical prostatectomy followed by adjuvant radiation therapy 2014 followed by ADT since 2016 due to PSA relapse, Chronic Residual LLE weakness following Remote attack with Multiple Sclerosis, Non-small adenocarcinoma cell lung cancer, stage IIB (T2b, N1, M0) status post LLL lobectomy and lymph node dissection [facility] July 03, 2017 with R0 resection who presented to the [facility] ED on 10/03/17 with dyspnea x 2 weeks. EKG without acute findings, CXR no acute process w/ chronic changes, ? L pleural effusion, CTPA with BL PE, no addle embolus, LL infiltrate, small R pleural effusion, moderate L pleural effusion, CBC w/ WBC 10.2, Hgb 10.5, Plts 207 with L shift, chemistry w/ K 3.3 and glucose 114 otherwise not marked, trop x 1 normal. Admitted to the PCU, maintained on cardiac telemetry, BNP 114.6, ECHO w/ EF 65%, stage II diastolic dysfunction, moderate TV insufficiency, RVSP 60 mmHg consistent with severe pulmonary hypertension, normal RV and systolic function, BL LE DVT US + BL per preliminary read, final read pending. In the ED initiated on heparin drip. Given acute BL PE in the setting of known cancer, per recommendations based on CLOT trial and superiority of injectable anticoagulation compared to PO anticoagulation with pts with active malignancy and thrombosis transitioned to therapeutic lovenox regimen; however, cost assessment prohibitive, thus per CLOT trial investigated cost options of new oral anticoagulants with notable affordability of eliquis therefore patient transitioned to eliquis regimen. During admission, patient clinically improved quickly, ambulated on room air with resolution of dyspnea complaint, maintained on ATC duonebs, PRN albuterol, maintained on IV Zosyn and Levaquin w/ negative MRSA assessment-->de-escalated to Levaquin continued upon discharge with negative urine antigens, sputum cx not obtained. Given Non-small adenocarcinoma cell lung cancer, noted stage IIB (T2b, N1, M0) s/p LLL lobectomy and lymph node dissection [facility] July 03, 2017 with R0 resection following w/ Dr. Mullen, Dr. Leger outpatient contacted their office and patient evaluated per SALES RESEARCH ANALYST with plan for follow-up as previously arranged. In addition given planned port placement 10/05/17, updated Dr. Valencia and intervention was deferred given acute infection and BL PE. Patient discharged to home in stable condition with follow-up with PCP, Pulmonary, Hem/Onc and Surgery Dr. Valencia to discuss future port placement possibilities. DAY OF DISCHARGE PROGRESS NOTE: Subjective: Patient without acute event overnight per self and nursing report. Patient notes breathing has markedly improved, he has been up and walking in the [place], not short of breath, no chest pain and notes LE discomfort is resolving also. Patient denies fever, chills, nausea, emesis, abdominal pain. Patient agreeable to discharge to home on oral newer anticoagulant medications secondary to cost of lovenox. Patient will be discharged with follow-up with primary care physician within 3-5 days in addition to Pulmonary, Hem/Onc and Surgery. Objective: T 98.7, HR 92, BP 140/79, RR 16, 98% on RA. Physical Examination: General: awake, alert, oriented x 3 and cooperative, seated upright in bed in no apparent distress. Skin: normal color, turgor, no icterus, cyanosis. HEENT: AT/NC, EOMI, PERRLA, MMM. Lungs: Improved BS, less diminished BS, > bases, not coarse, no rales, ronchi or wheezing. Heart: Regular rate and rhythm; no gallop, rub audible. Abdomen: soft, NTTP, ND, normal BS. Extremities: no cyanosis, clubbing, RLE s/p several toe amputations, minimal R>L mild non-pitting edema, less BL TTP palpation R calf/posterior knee region. Neurological: patient awake, alert, oriented x 3; cognitive function intact; pupils equally reactive to light and accomodation; cranial nerves II-XII grossly normal, moving all 4 extremities, no focal deficits, strength improved, walking the halls, mildly globally decreased. Psychiatric: affect appears normal, no acute evidence of depressive or anxiety feelings. Assessment and Plan: Please see hospital summary above. Discharge Activity: - - Avoid aggressive activity until re- evaluation per Hem/Onc, your PCP and also Pulmonary Medicine. May resume sexual activity in: 1-2 weeks Weight Bearing Status: Weight bearing as tolerated Call your doctor if you observe: Fever of 101 or Higher, Inability to urinate, Inability to have a bowel movement, Shortness of breath, Dizziness, Fainting spells, Chest pain, Uncontrolled pain Home Medications: Medications to take at Discharge Folic Acid 1 mg PO DAILY@0800 #30 tab 09/15/17 Losartan Potassium 50 mg PO DAILY 10/02/17 Lupron Depot 10/02/17 Albuterol IH (ProAir) [Proair Hfa] 1 - 2 puff INHALATION Q4H PRN PRN #1 inhaler 10/04/17 Apixaban [Eliquis] 5 mg PO BID #60 tab.ds.pk 10/04/17 Apixaban [Eliquis] 10 mg PO BID #14 tab 10/04/17 Famotidine [Pepcid] 20 mg PO BID #60 tab 10/04/17 Levofloxacin [Levaquin] 750 mg PO DAILY #6 tab 10/04/17 Following Prescrptions Were Given to Patient: Albuterol IH (ProAir) [Proair Hfa] 1 - 2 puff INHALATION Q4H PRN PRN #1 inhaler PRN Reason: dyspnea, wheezing Levofloxacin [Levaquin] 750 mg PO DAILY #6 tab Apixaban [Eliquis] 10 mg PO BID #14 tab Apixaban [Eliquis] 5 mg PO BID #60 tab.ds.pk Famotidine [Pepcid] 20 mg PO BID #60 tab Primary Care Physician: Fernando Mock, [NON-STAFF] - Please follow up with your Primary Care Physician in: Follow- up 3-5 days with PCP. Please Follow Up With: Dago Leger MD When: Follow-up 10/06/17 as already arranged. Please Follow Up With: Tavon Mullen MD When: Follow-up within 1-2 weeks, may see SALES RESEARCH ANALYST to discuss admission. Please Follow Up With: Fritz Valencia MD When: Contact office to discuss re-arranging port placement date. Patient Instructions: Apixaban Oral tablet, Pulmonary Embolism, What Is Pneumonia?, Preventing Pneumonia, Pneumonia Treatment, Discharge Instructions for Pulmonary Embolism Disposition: Home Minutes spent on discharge:: 35 Patient Condition:: Fair Meaningful Use Info Meaningful Use Diagnoses (Choose all that apply): VTE - VTE Anticoag overlap given w/in hospital stay or rx'd at dc?: No Pt receive overlap for 5 days?: No Reason overlap not ordered, prescribed, or given for 5 days: Treatment Not Indicated - Going on eliquis. Code Visit Inpatient E AND M: [id number] Disch Hosp 10/04/17 1045 <Electronically signed by Skye Haro > Date Skye Haro Cosigner Signature (if applicable): Date CC: Skye Haro; Katlyn Mullins DO Signed DISCHARGE INSTRUCTION Observed: 10/04/2017 Status: F Source: [place] 10:36 AM [facility] [place] REPOSITORY [facility] Medical Records Department [address] [place] [address] Instructions for Home/Discharge Instructions 10/04/17 1024 MR#: [id number] Acct: [id number] Name: SHAILA STOLL Rep #: [id number] : 1950 66 From: Skye Haro PCP: Katlyn Mullins DO Status: ADM IN - Discharge Diagnoses Current Active Problems: Current Active and Chronic Problems (Last Reviewed 09/24/17 @ 15:20 by Miguelina Saenz NP-C) Pulmonary embolism (Acute) HCAP (healthcare-associated pneumonia) (Acute) (1) Dyspnea secondary to Acute BL Pulmonary Embolism, HCAP (see #2) (2) Dyspnea also secondary to concurrently noted HCAP Pneumonia (3) Prostate cancer s/p radical prostatectomy (4) Non-small adenocarcinoma cell lung cancer (5) Multiple Sclerosis (6) Hypertension (7) Hyperlipidemia (8) GERD You will use the following diet at home:: Cardiac Your food should be the consistency of: Regular Your liquids should be the consistency of: Regular/Thin Discharge Activity: - - Avoid aggressive activity until re- evaluation per Hem/Onc, your PCP and also Pulmonary Medicine. May resume sexual activity in: 1-2 weeks Weight Bearing Status: Weight bearing as tolerated Call your doctor if you observe: Fever of 101 or Higher, Inability to urinate, Inability to have a bowel movement, Shortness of breath, Dizziness, Fainting spells, Chest pain, Uncontrolled pain Instructions: What Is Pneumonia?, Preventing Pneumonia, Pneumonia Treatment, Discharge Instructions for Pulmonary Embolism, Pulmonary Embolism, Apixaban Oral tablet Additional Instructions: Please follow-up with Hem/Oncology to review recent admission, plan for future chemotherapy and re-scheduling of port placement. Please have repeat CBC and BMP with your PCP at follow-up. Allergies/Adverse Reactions: Allergies morphine Adverse Reaction (Verified 10/02/17 19:55) MAKES HIS NAUSEATED AND SICK Medications to take at Discharge Folic Acid 1 mg PO DAILY@0800 #30 tab 09/15/17 Losartan Potassium 50 mg PO DAILY 10/02/17 Lupron Depot 10/02/17 Albuterol IH (ProAir) [Proair Hfa] 1 - 2 puff INHALATION Q4H PRN PRN #1 inhaler 10/04/17 Apixaban [Eliquis] 5 mg PO BID #60 tab.ds.pk 10/04/17 Apixaban [Eliquis] 10 mg PO BID #14 tab 10/04/17 Famotidine [Pepcid] 20 mg PO BID #60 tab 10/04/17 Levofloxacin [Levaquin] 750 mg PO DAILY #6 tab 10/04/17 The following prescriptions were given: Albuterol IH (ProAir) [Proair Hfa] 1 - 2 puff INHALATION Q4H PRN PRN #1 inhaler PRN Reason: dyspnea, wheezing Levofloxacin [Levaquin] 750 mg PO DAILY #6 tab Apixaban [Eliquis] 10 mg PO BID #14 tab Apixaban [Eliquis] 5 mg PO BID #60 tab.ds.pk Famotidine [Pepcid] 20 mg PO BID #60 tab Primary Care Physician: Fernando Mock DO [NON-STAFF] - Please follow up with your Primary Care Physician in: Follow- up 3-5 days with PCP. Please Follow Up With: Dago Leger MD When: Follow-up 10/06/17 as already arranged. Please Follow Up With: Tavon Mullen MD When: Follow-up within 1-2 weeks, may see SALES RESEARCH ANALYST to discuss admission. Please Follow Up With: Fritz Valencia MD When: Contact office to discuss re-arranging port placement date. Proposed Discharge Date: 10/04/17 10/04/17 1036 <Electronically signed by Skye Haro > Date Skye Haro CC: Dago Leger MD; Katlyn Mullins DO CONSULTATION Observed: 10/04/2017 Status: F Source: [place] 8:53 AM [facility] [place] REPOSITORY [facility] Medical Records Department [address] [place] [address] Consultation 10/04/17 0733 MR#: [id number] Acct: [id number] Name: SHAILA STOLL Rep #: [id number] : 1950 66 From: Corina VALLES PCP: Katlyn Mullins DO Status: ADM IN Y [id number] Referring Physician: Skye Haro Date of Service:: 10/04/17 Chief Complaint: SOB History of Present Illness: Mr Shaila Stoll is a 66-year-old gentleman smoker who quit over 20 years ago after a 30+ pack year smoking who presented with a months history of increasing dyspnea on exertion and wheezing. Chest x-ray followed by a CT scan of the chest revealed a left lower lobe mass, later confirmed hypermetabolic by way of PET/CT. Bronchoscopy by Dr. Mullen on 05/19/2017 showed a left lower lobe endobronchial lesion and biopsy confirmed an adenocarcinoma. Brain MRI at the time of staging showed no evidence of metastatic disease. Pulmonary function tests were satisfactory for surgical resection. Thus on July 03, 2017 he underwent left lower lobe sleeve lobectomy at [facility] by Dr. Alfonso. Final pathology revealed a 6.5 cm single focus adenocarcinoma G2 negative margins no visceral pleural invasion no lymphovascular invasion and metastatic cancer was found in 1 lymph node position 11 mL (N1) of 16 N1 nodes dissected and non-and 8 N2 nodes dissected. It was proposed he commence with adjuvant chemotherapy, specifically Carboplatin/pemetrexed x 4 cycles. Per patient elected to delay by 1 month d/t pending insurance changes. He was scheduled to initiate therapy 10/06/17 subsequent to port placement 10/05/17. Care has been complicated by acute dyspnea which prompted presentation to [facility] 10/03/17. Found to have bilateral PEs and bilateral LE DVTs. Now on Lovenox. His past medical history is notable for prostate cancer presenting with an elevated PSA of 42. Patient is status post radical prostatectomy in October 2014 for a Keatchie score 9 adenocarcinoma involving about 80% of the prostate with extra prostatic extension extensive positive margins and lymphovascular invasion as well as tory-neural invasion. Following his surgery patient underwent adjuvant radiation therapy concluded in 2014. At the completion of his treatment his PSA was less than 0.1 however by 2016 PSA relapse prompted initiation of ADT by his urologist which he continues to date with the most recent PSA of less than 0.1. His past medical history is also notable for multiple sclerosis with residual left lower extremity weakness but no recent flares. Past Medical History: Chronic Problems (Last Reviewed 09/24/17 @ 15:20 by HAI Zamora) Adenocarcinoma of lung (Chronic) Hypertension (Chronic) 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) [facility] 07/03/17 Prostate cancer (Chronic) surgery , R.T. 2015 PSA relapse 2016 ADT Multiple sclerosis (Chronic) left leg weakness Past Medical/Surgical History: Past Medical History - Most Recent Inpatient Visit Past Medical History Start: 10/03/17 00:07 Text: Status: Complete Freq: ONCE Protocol: Document 10/03/17 00:07 ARN (Rec: 10/03/17 00:29 ARN [id number]) BMI Required to complete PMH What is Patient's BMI 27.7 Past Medical History Unable History Recalled Yes Query Text:Pt Unable/Family Not Present Neurologic Medical History Hx Stroke/TIA No Hx Dementia/Alzheimer's No Hx Parkinson's Disease No Hx Seizures No Hx Multiple Sclerosis Yes: 25 YRS AGO HAD DX, BUT ANOTHER DR SAID NOT, Hx Migraines No Cardiac Medical History VTE Present on Admission Yes Hx of Deep Vein Thrombosis/VTE/PE No Hx Hypertension Yes: BP MED 5 YRS Hx Chest Pain/Angina No Hx Heart Attack No Hx Cardiac Surgery/Stents/Etc. No Hx Heart Failure No Hx Pacemaker/AICD No Hx Irregular Heartbeat and/or Afib No Hx Anticoagulant Therapy No Query Text:(Coumadin, Aspirin, Plavix, Xarelto, etc.) Hx Pain in Legs when Walking/Leg Cramps No Respiratory Medical History Hx COPD No Hx Emphysema No Hx Smoking No Smoking Status Former smoker Years Smoking 25 Packs Smoked per Day 2 Hx Smoking Cessation Counseling Yes Hx Smoking Exposure Yes Hx Tobacco Use in last 12 months No Hx of Pipe Smoking No Hx of Cigar Smoking Yes Hx Sleep Apnea No CPAP No BIPAP No Do you snore loudly (louder than talking No or can be heard through closed doors)? Do you often feel tired/ fatigued/ No sleepy during daytime? Has anyone observed you stop breathing No during sleep? STOP Results Negative GI Medical History Hx Ulcer Yes Hx Hepatitis No Hx Cirrhosis No Hx GI Bleed No Hx Unplanned Weight Loss No Genitourinary Medical History Indwelling Catheter in Place on Arrival/ No Admission Hx Renal Disease No Hx Dialysis No Musculoskeletal History Hx Arthritis No Hx Rheumatoid Arthritis No Endocrine Medical History Hx Diabetes No Hx Thyroid Disease No Hematologic Medical History Hx of Blood Transfusion No Hx of Transfusion in last 3 Months No Ever experience any problems with No transfusion(s)? Hx of Preganancy in last 3 Months N/A Nurse Filling Out Transfusion AND ANORRIS Questions: Date: 10/03/17 Time: 00:29 Psycho/Social Medical History Hx Depression No Hx Anxiety No Hx Behavior Disorder No Hx Alcohol Use No Hx Substance Use No Other Medical History Hx Blood Disorders No Hx Anemia No Hx Cancer Yes: PROSTATE CANCER, BX 2014, LUNG CA Hx Drug Resistant Organism No Wound/Pressure Injury Present on Arrival No /Admission Query Text:If yes, chart assessment in Shift/Clinical Findings Central Line/PICC/VAD Present on Arrival No /Admission Antibiotics within last 7 days? No Methicillin Resistant Staphylococcus aureus Screening Active MRSA No Risk for Readmission Number of Risk Factors 3 At Risk for Readmission Patient is At Risk For Readmission Patient is eligible for Call Back Y Past Medical History (Last Reviewed 09/24/17 @ 15:20 by HAI Zamora) Viral pharyngitis (Acute) Nasopharyngitis (Acute) Limb weakness (Acute) unusual tierdness (Acute) Sinusitis (Acute) SOB (shortness of breath) (Acute) Dyspnea (Acute) Adenocarcinoma of lung (Chronic) Hyperlipidemia (Acute) Hypertension (Chronic) 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) LYMPH NODE REMOVAL-CHEST (Acute) Past Surgical History (Last Reviewed 09/24/17 @ 15:20 by HAI Zamora) History of prostatectomy (Acute) Maternal Family History: Family History (Last Reviewed 09/24/17 @ 15:20 by HAI Zamora) Father Prostate cancer Liver cancer Liver disease Mother Bone cancer Family History: - - Paternal Past Medical History: Liver disease Paternal History of Cancer: Liver cancer,Prostate cancer Maternal Past Medical History:Unknown Maternal History of Cancer: Bone cancer - Social History Lives: Spouse/ Significant Other Smoking Status: Former smoker Alcohol: None Drugs: None Allergies/Adverse Reactions: Allergy/AdvReac Type Severity Reaction Status Date / Time morphine AdvReac MAKES HIS Verified 10/02/17 19:55 Home Medications Medication Instructions Recorded Review of Systems Constitutional:: Denies: Fever, Sweats, Weight loss, Appetite change, Chills Cardiovascular:: Denies: Chest pain, Palpitations, Dyspnea on exertion, Orthopnea, PND, Shortness of breath Respiratory: Denies: Cough, Hemoptysis, Shortness of Breath, Wheezing Gastrointestinal:: Denies: Abdominal pain, Nausea, Vomiting, Diarrhea, Constipation, Hematochezia Genitourinary: Denies: Dysuria, Hematuria, 15, Flank pain Musculoskeletal:: Denies: Back pain, Myalgia, Arthralgia Skin: Denies: Rash, Skin Changes, Wounds Neurological:: Denies: Headache, Dizziness, Numbness, Tingling, Visual changes, Tinnitus, Hearing loss Psychiatric: Denies: Anxiety, Depression, Homicidal Ideations, Suicidal Ideations Vital Signs Height 5 ft 10 in Weight: 187 lb 2.759 oz - Physical Exam General: Alert, Oriented x3, No apparent distress HEENT: Atraumatic, Normocephalic Oropharynx:: Negative for: Dry mucosa, Ulcerated lesions Neck:: Supple, Trachea midline. Negative for: JVD, bilateral Cardiac:: Regular rate, Regular rhythm, Normal S1, Normal S2. Negative for: Murmur Lungs: Clear to auscultation, Excusion symmetrical. Negative for: Rhonchi, Wheezes Abdomen:: Bowel sounds x 4, Soft, Non-tender, Non-distended. Negative for: Hepatosplenomegaly Extremities:: Negative for: Cyanosis, Edema, Calf tenderness - R calf pain resolved Neurological: Neuro grossly intact Skin:: Negative for: Lesions, Rash, Petechiae, Ecchymosis Psychiatric:: Depressed affect Lymphatics:: Negative for: Cervical lymphadenopathy, Supraclavicular lymphadenopathy, Axillary lymphadenopathy Laboratory Data: Microbiology 10/03/17 10:35 Streptococcus pneumoniae Antigen (M - Final Urine, Clean Catch 10/03/17 10:35 Legionella Antigen - Final Urine, Clean Catch Laboratory Tests WBC 6.5 (4.4-11.0) K/mm3 RBC 3.14 L (4.6-6.2) M/mm3 Diagnostic Data: Diagnostic Data Chest CTA 10/02/17 20:06 IMPRESSION: Bilateral pulmonary emboli. There is no saddle embolus. Left lower lobe infiltrate suggesting pneumonia. Small right pleural effusion. Moderate left pleural effusion. N.B. : The above information has been verbally conveyed by Antonio Hamlin MD to Danyel Cai on 10/02/2017 23:07:39 (ET). Electronically Signed: Antonio Hamlin MD at 21:46 EST , Service support , N.B. : The above information has been verbally conveyed by Antonio Hamlin MD to Danyel Cai on 10/02/2017 23:07:39 (ET). Chest X-Ray 10/02/17 20:30 IMPRESSION: Scarring or small left pleural effusion. Electronically Signed: Antonio Hamlin MD at 21:28 EST , Service support , Assessment and Plan The patient is a 66 y/o M w/ PMHx: HTN, HLD, Prostate cancer s/p radical prostatectomy followed by adjuvant radiation therapy 2014 followed by ADT since 2015 due to PSA relapse, Chronic Residual LLE weakness following Remote attack with Multiple Sclerosis, Non-small adenocarcinoma cell lung cancer, stage IIB (T2b, N1, M0) status post LLL lobectomy and lymph node dissection [facility] July 03, 2017 with R0 resection who presents to the [facility] ED on 10/03/17 with dyspnea x 2 weeks. 1- Stage IIB (T2b, N1, M0) Non-small cell adenocarcinoma of the left lung- s/p LLL lobectomy and lymph node dissection at [facility] July 03, 2017. Will evaluate in clinic on 10/06/17 as previously planned. Certainly not having a port will not preclude him from initiating chemotherapy timely, although will allow flexibility given the context of adjuvant therapy. 2- Acute VTE by way of bilateral Pulmonary Embolism and bilateral lower extremity DVTs- confirmed with CTA demonstrating BL PE, no saddle embolus, LL infiltrate, small R pleural effusion and moderate L pleural effusion. Low molecular weight heparin (Lovenox) is the agent of choice due to proven superiority to Coumadin and prevention of recurrent VTE. Although, if needed can transition to oral anticoagulant d/t patient's concern r/t cost of Lovenox. Will discuss 10/06/17. Spouse is willing to administer SQ injections. 3- Prostate cancer: s/p radical prostatectomy, followed by adjuvant radiation therapy 2014 followed by ADT since 2016 due to PSA relapse, unclear lupron dose, medication rec pending. 4- Dyspnea also secondary to concurrently noted HCAP Pneumonia- Defer management to primary team Corina Holbrook, MSN, SEAM [employer]WER-C, AOCNP Medications: Prescriptions This Visit Medication Instructions Recorded Losartan Potassium 50 mg PO DAILY 10/02/17 Lupron Depot 10/02/17 Enoxaparin [Lovenox] 80 mg SC Q12@0600,1800 #60 syringe 10/03/17 Medications Added to Medication List This Visit Ensure Enlive Med 10/04/17 10:00 Active 120 ml PO 4X/DAY Primary Care Provider: Katlyn Mullins Referring Provider: - Problem List (1) Pulmonary embolism Status: Acute Qualifiers: Pulmonary embolism type: other Chronicity: acute Acute cor pulmonale presence: without acute cor pulmonale Qualified Code(s): I26.99 - Other pulmonary embolism without acute cor pulmonale (2) Cancer of lower lobe of left lung Status: Acute (3) Prostate cancer Status: Chronic Comment: surgery , R.T. 2014 PSA relapse 2016 ADT (4) HCAP (healthcare-associated pneumonia) Status: Acute 10/04/17 0853 <Electronically signed by Corina VALLES> Date Corina RINALDIC Cosigner Signature (if applicable): Date CC: Dago Leger MD; Katlyn Mullins DO Signed CBC W/DIFF, AUTOMATED Collected: 10/04/2017 Status: F Source: [place] 5:47 AM [facility] REPOSITORY TYPE CODE TESTS RESULT OUT OF RANGE REFERENCE UNITS LAB L100.1000 4.4-11.0 K/mm3 Normal WBC 6.5 LAB L100.1200 4.6-6.2 M/mm3 Low RBC 3.14 LAB L100.1300 13.0-16.5 g/dl Low HGB 9.2 LAB L100.1400 40-54 % Low HCT 28.3 LAB L100.1500 80-94 fL Normal MCV 90.1 LAB L100.1600 27.0-32.0 pg Normal MCH 29.3 LAB L100.1700 32-36 g/gl Normal MCHC 32.5 LAB L100.1810 11.6-14.6 % Normal RDW CV 13.8 LAB L100.1820 35.1-43.9 fl High RDW SD 46.0 LAB L100.1900 150-450 K/mm3 Normal PLT 235 LAB L100.2000 6.2-12.0 fl Normal MPV 9.1 LAB L100.2100 47-70 % High NEUT% 74.3 LAB L100.2200 19-41 % Low LY% 10.4 LAB L100.2300 0-10 % High MONO% 10.5 LAB L100.2400 0-5 % Normal EO% 3.9 LAB L100.2500 0-1 % Normal BASO% 0.3 LAB L100.2550 0.0-0.9 % Normal IM GRAN % 0.600 Result Comment: IG% - Immature Granulocytes (promyelocytes, myelocytes and metamyelocytes) > 1% indicates that a LEFT SHIFT is Present. LAB L100.2620 2.0-7.7 X10 3/uL Normal Absolute Neut 4.8 LAB L100.2720 0.83-4.51 X10 3/ul Low Absolute Lymph 0.67 Performed By: #### L100.0100 #### [facility] [address] [place] [address]. [place], [address] BASIC METABOLIC Collected: 10/04/2017 Status: F Source: [place] PROFILE (BMP) 5:47 AM [facility] REPOSITORY TYPE CODE TESTS RESULT OUT OF RANGE REFERENCE UNITS LAB L501.0100 74-106 mg/dL Normal GLU 89 Result Comment: Please note revised GLUCOSE reference range effective 2017. LAB L501.1000 7-18 mg/dL Normal BUN 10 LAB L501.1100 0.70-1.30 mg/dL Normal CREAT,SERUM 0.92 Result Comment: The validity of the calculated GFR AND GFRAA in patients over 70 years has not been determined. Clinical correlation is essential. LAB L501.1110 >60 mL/min Normal EST GFR 87 Result Comment: Non- GFR Calc LAB L501.1115 >60 mL/min Normal EST GFR - AA 106 Result Comment: GFR Calc LAB L501.1255 ml/min Normal Estimated CRCL 83.76 LAB L501.1300 10-20 RATIO Normal BUN/CRE 10.8 LAB L501.2200 8.5-10 mg/dL Low .1 CA 8.3 LAB L501.5300 136-14 mmol/L Normal 5 NA 140 LAB L501.5600 3.5-5. mmol/L Normal 1 K 4.1 LAB L501.5900 98-107 mmol/L Normal CL 107 LAB L501.6100 21.0-3 mmol/L Normal 2.0 CO2 24.0 LAB L501.6200 5-15 Normal GAP 9 Performed By: #### L500.2500 #### [facility] [address] [place], [address] M R STAPH AUREUS Collected: 10/03/2017 Status: F Source: [place] DNA BY PCR 9:50 PM [facility] REPOSITORY TYPE CODE TESTS RESULT OUT OF RANGE REFERENCE UNITS LAB L8200.1100 Negative Normal MRSA Negative RESULT Performed By: #### L8200.1000 #### [facility] [place], [address] Observed: 10/03/2017 Status: F Source: [place] LEGIONELLA ANTIGEN 10:35 AM [facility] URINE REPOSITORY Legionella, UR Legionella Antigen result interpretation: Negative Presumptive negative for Legionella pneumophila serogroup 1 antigen in urine, suggesting no recent or current infection. Legionella Ag, Urine Negative (See interpretation below) Performed By: #### M300.4500 #### [facility] [place], [address] STREP Observed: 10/03/2017 Status: F Source: [place] PNEUMONIAE ANTIG(UR,CSF) 10:35 AM [facility] REPOSITORY S pneumo Ag URINE INTERPRETATION Negative Urine Presumptive negative for pneumococcal pneumonia, suggesting no current or recent pneumococcal infection. Infection due to S pneumoniae cannot be ruled out since the antigen present in the sample may be below the detection limit of the test. Strep pneumo Test Negative URINE (See interpretation below) Performed By: #### M300.4600 #### [facility] [address] [place], [address] ECHOCARDIOGRAM COMPLETE Observed: 10/03/2017 Status: F Source: [place] 10:22 AM [facility] REPOSITORY [facility] Cardiovascular Services [address] [place] [address] Echo Complete 10/03/17 0753 MR#: [id number] Acct: [id number] Name: SHAILA STOLL Rep #: [id number] : 1950 66 From: Trish Yates MD Attending Dr: Skye Haro Status: ADM IN Ordering Dr: Braulio De La Rosa MD Date: 10/03/17 Location: [facility] Sex: M C Admitted: 10/02/17 Reason For Study: Emboli Procedure This was a 2D Doppler, Color Flow transthoracic echocardiogram. Exam performed portable in patient room. Left Ventricle Normal size and thickness. The estimated ejection fraction is 65 %. Stage II diastolic dysfunction. Right Ventricle Normal right ventricle. Normal systolic function. Atria The left atrium is mildly enlarged. Mitral Valve The mitral valve is structurally normal. No prolapse or stenosis seen. Trivial mitral valve insufficiency. Tricuspid Valve Normal tricuspid valve. Moderate (2+) tricuspid valve insufficiency. Right ventricular systolic pressure estimated to be 60 mmHg. Aortic Valve Normal aortic valve. Pulmonic Valve Normal pulmonic valve. Trivial pulmonic valve insufficiency. Great Vessels Normal aortic root. Pericardium/Pleural No pericardial effusion. MMode/2D Measurements AND Calculations LVIDd: 4.8 cm IVSd: 1.00 cm Ao root diam: 3.1 cm LVIDs: 3.0 cm LVPWd: 0.96 cm LA dimension: 4.4 cm RVDd: 3.5 cm FS: 38.1 % LAV(MOD-bp): 55.5 ml LA A4 area: 18.1 cm2 RA A4 area: 14.3 cm2 LAV(MOD-bp) Indexed: 27.0 ml/m2 LAV(MOD-sp2): 57.0 ml LAV(MOD-sp4): 49.1 ml Doppler Measurements AND Calculations MV E max rabia: 82.4 cm/sec Lat Peak E' Rabia: 14.5 cm/sec Med Peak E' Rabia: 7.9 cm/sec MV A max rabia: 75.4 cm/sec E/E' lat: 5.7 E/E' med: 10.4 MV E/A: 1.1 Ao V2 max: 132.0 cm/sec LV V1 max: 125.7 cm/sec PA V2 max: 83.2 cm/sec Ao max P.0 mmHg LV V1 max P.3 mmHg Ao V2 mean: 95.9 cm/sec Ao mean P.1 mmHg Ao V2 VTI: 24.6 cm TR max rabia: 370.5 cm/sec TR max P.9 mmHg Interpretation Summary The estimated ejection fraction is 65 %. Stage II diastolic dysfunction. Moderate (2+) tricuspid valve insufficiency Right ventricular systolic pressure estimated to be 60 mmHg. Severe pulmonary hypertension Normal RV size and systolic function Ordering Physician: Braulio De La Rosa Referring Physician: Katlyn Mullins Performed By: Florence Garner, MARY, RVT 10/03/17 1022 Date Tirsh Yates MD CC: Braulio De La Rosa MD; Katlyn Mullins DO Date Dictated: 10/03/17 0753 Date Transcribed: 10/03/17 1022 Flash Ranging Crewmember: Signed CBC-COMPLETE BLOOD CNT Collected: 10/03/2017 Status: F Source: [place] NO DIFF 4:26 AM [facility] REPOSITORY TYPE CODE TESTS RESULT OUT OF RANGE REFERENCE UNITS LAB L100.1000 4.4-11.0 K/mm3 Normal WBC 8.2 LAB L100.1200 4.6-6.2 M/mm3 Low RBC 3.01 LAB L100.1300 13.0-16.5 g/dl Low HGB 9.1 LAB L100.1400 40-54 % Low HCT 27.2 LAB L100.1500 80-94 fL Normal MCV 90.4 LAB L100.1600 27.0-32.0 pg Normal MCH 30.2 LAB L100.1700 32-36 g/gl Normal MCHC 33.5 LAB L100.1810 11.6-14.6 % Normal RDW CV 13.3 LAB L100.1820 35.1-43.9 fl Normal RDW SD 42.8 LAB L100.1900 150-450 K/mm3 Normal PLT 189 LAB L100.2000 6.2-12.0 fl Normal MPV 8.9 Performed By: #### L100.0500 #### [facility] [address] [place], [place], [id number] PARTIAL THROMBOPLAST Collected: 10/03/2017 Status: F Source: [place] TIME 4:26 AM [facility] REPOSITORY TYPE CODE TESTS RESULT OUT OF REFERENCE UNITS RANGE LAB L300.4310 24.1-36.2 Seconds High PTT 63.1 Performed By: #### L300.4310 #### [facility] [address] [place], [address] BASIC METABOLIC Collected: 10/03/2017 Status: F Source: [place] PROFILE (BMP) 4:26 AM [facility] REPOSITORY TYPE CODE TESTS RESULT OUT OF RANGE REFERENCE UNITS LAB L501.0100 74-106 mg/dL Normal GLU 95 Result Comment: Please note revised GLUCOSE reference range effective 2017. LAB L501.1000 7-18 mg/dL Normal BUN 12 LAB L501.1100 0.70-1.30 mg/dL Normal CREAT,SERUM 0.77 Result Comment: The validity of the calculated GFR AND GFRAA in patients over 70 years has not been determined. Clinical correlation is essential. LAB L501.1110 >60 mL/min Normal EST GFR 108 Result Comment: Non- GFR Calc LAB L501.1115 >60 mL/min Normal EST GFR - AA 131 Result Comment: GFR Calc LAB L501.1255 ml/min Normal Estimated CRCL 100.07 LAB L501.1300 10-20 RATIO BUN/CRE Normal 15.6 LAB L501.2200 8.5-10 mg/dL Low .1 CA 8.0 LAB L501.5300 136-14 mmol/L 5 NA Normal 136 LAB L501.5600 3.5-5. mmol/L 1 K Normal 3.9 LAB L501.5900 98-107 mmol/L CL Normal 104 LAB L501.6100 21.0-3 mmol/L 2.0 CO2 Normal 25.0 LAB L501.6200 5-15 GAP Normal 7 Performed By: #### L500.2500 #### [facility] [address] [place], [address] PHOSPHORUS Collected: 10/03/2017 Status: F Source: [place] 4:26 AM [facility] REPOSITORY TYPE CODE TESTS RESULT OUT OF RANGE REFERENCE UNITS LAB L501.2300 2.5-4.9 mg/dL Normal PHOS 3.4 Performed By: #### L501.2300, L501.5200 #### [facility] [address] [place], [address] MAGNESIUM Collected: 10/03/2017 Status: F Source: [place] 4:26 AM [facility] REPOSITORY TYPE CODE TESTS RESULT OUT OF RANGE REFERENCE UNITS LAB L501.5200 1.6-2.6 mg/dL Normal MG 2.3 Result Comment: Please note revised Magnesium reference range effective 2017. Performed By: #### L501.2300, L501.5200 #### [facility] [address] [place], [address] Observed: 10/03/2017 Status: F Source: [place] CULTURE, BLOOD (WB) 4:26 AM [facility] REPOSITORY Has pt arrived? Y BC No growth in 5 days. Performed By: #### M200.1000 #### [facility] [address] [place], [address] HISTORY AND PHYSICAL Observed: 10/03/2017 Status: F Source: [place] EXAM 3:44 AM [facility] REPOSITORY [facility] Medical Records Department [address] [place] [address] History and Physical 10/02/17 2327 MR#: [id number] Acct: [id number] Name: SHAILA STOLL Davi Rep #: [id number] : 1950 66 From: Braulio De La Rosa MD PCP: Katlyn Mullins DO Status: ADM IN Y Location: [place] [address] Problem List (1) Pulmonary embolism Status: Acute (2) Cancer of lower lobe of left lung Status: Acute (3) History of prostatectomy Status: Acute (4) Hyperlipidemia Status: Acute (5) Limb weakness Status: Acute (6) Hypertension Status: Chronic (7) Multiple sclerosis Status: Chronic Comment: left leg weakness (8) Prostate cancer Status: Chronic Comment: surgery , R.T. 2015 PSA relapse 2016 ADT History of Present Illness Date of Admission: 10/02/17 Chief Complaint: SOB The patient is a 66 year old male w/ h/o prostate cancer status post radical prostatectomy followed by adjuvant radiation therapy in 2014 and has been on ADT since 2016 due to PSA relapse, residual left lower extremity weakness from a remote attack with multiple sclerosis, and non-small adenocarcinoma cell lung cancer, stage IIB(T2b, N1, M0) status post left lower lobectomy and lymph node dissection at [facility] July 03, 2017 with R0 resection admitted for SOB secondary to bilateral PE. He has been getting SOB for the past few weeks. Nothing appeared to make it better or worse. He also has a chronic nonproductive cough. The intensity and frequency of the cough have been unchanged. His SOB affected him all part of the day and yesterday SOB has been so severe that he is unable to bend over and tie his shoes. He is unable to perform his ADLs. He went to the ED for further workup. Past Medical History Past Medical History (Chronic Problems): Chronic Problems (Last Reviewed 09/24/17 @ 15:20 by HAI Zamora) Adenocarcinoma of lung (Chronic) Hypertension (Chronic) 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) [facility] 07/03/17 Prostate cancer (Chronic) surgery , R.T. 2014 PSA relapse 2016 ADT Multiple sclerosis (Chronic) left leg weakness Allergies morphine Adverse Reaction (Verified 10/02/17 19:55) MAKES HIS NAUSEATED AND SICK Home Medications: Ambulatory Orders Medication Instructions Recorded RX: Folic Acid 1 mg PO DAILY@0800 #30 tab 09/15/17 Lupron Depot 10/02/17 RX: Losartan Potassium 50 mg PO DAILY 10/02/17 Surgical History: - - Lobectomy Lives: Spouse/ Significant Other Smoking Status: Former smoker Alcohol: None Drugs: None - *Family History Maternal History Items: - - Paternal Past Medical History: Liver disease Paternal History of Cancer: Liver cancer,Prostate cancer Maternal Past Medical History:Unknown Maternal History of Cancer: Bone cancer VTE Information - Inpt Only VTE Present on Admission: No VTE Mechan Device Prophylaxis: None VTE Pharm Prophylaxis ordered?: Yes Patient Problems: Active and Suspected Problems (Last Reviewed 09/24/17 @ 15:20 by NIMCO ZamoraC) Pulmonary embolism (Acute) - Physical Exam General: Alert, Oriented x3, Cooperative HEENT: Atraumatic, PERRLA, EOMI, Normocephalic Neck: Supple, No JVD, Negative Carotid Bruits Lungs: Diminished, Rales Cardiovascular: Regular rate, No murmurs Abdomen: Bowel Sounds Present, Soft, Non Tender Extremities: No edema, Capillary Refill Less than 3 Seconds Skin: No rashes, No breakdown Musculoskeletal: No Tenderness to Palpation of Joints or Extremities Neurological: Cranial nerves II-XII grossly intact Psych/Mental Status: Normal Affect, Appropriate Vital Signs Temp Pulse Resp BP Pulse Ox 98.7 F 87 17 151/89 H 98 10/02/17 19:52 10/02/17 22:51 10/02/17 22:51 10/02/17 22:51 10/02/17 22:51 Oxygen Flow Rate 2 Oxygen Delivery Method Nasal Cannula Weight: 87.543 kg Body Mass Index (BMI) 27.6 Laboratory Tests Past 24 Hrs WBC 10.2 RBC 3.61 L WBC RBC Hgb Hct MCV MCH MCHC RDW RDW Differential Plt Count MPV Immature Gran % (Auto) Neut % (Auto) Lymph % (Auto) Assessment/Plan Active and Suspected Problems (Last Reviewed 09/24/17 @ 15:20 by Miguelina Saenz NP-C) Pulmonary embolism (Acute) 66 year old male w/ h/o prostate cancer status post radical prostatectomy followed by adjuvant radiation therapy in 2014 and has been on ADT since 2016 due to PSA relapse, residual left lower extremity weakness from a remote attack with multiple sclerosis, and non-small adenocarcinoma cell lung cancer, stage IIB(T2b, N1, M0) status post left lower lobectomy and lymph node dissection at [facility] July 03, 2017 with R0 resection admitted for SOB secondary to bilateral PE. 1) Acute bilateral PE: Will start heparin gtt. Will get ECHO and doppler in AM. Will get trops. No e/o heart strain on EKG. C/w oxygen. 2) Non-small adenocarcinoma cell lung cancer, stage IIB(T2b, N1, M0) status post left lower lobectomy and lymph node dissection at [facility] July 03, 2017 with R0 resection: Pt to have port place on Thursday. He is to start adjuvant chemotherapy with carboplatin Alimta for 4 cycles supported with antiemetics, steroids, B12 and folic acid and primary prophylaxis against febrile neutropenia with Neulasta due to increased risk for febrile neutropenia outpt. Monitor. 3) Hypokalemia: Will replace. Monitor. 4) Prophylaxis: Heparin gtt. 10/03/17 0344 <Electronically signed by Braulio De La Rosa MD> Date Braulio De La Rosa MD Cosigner Signature: Date (if applicable) CC: Braulio De La Rosa MD; Katlyn Mullins DO Signed EMERGENCY DEPARTMENT Observed: 10/02/2017 Status: F Source: [place] SUMMARY 10:48 PM [facility] REPOSITORY [facility] Medical Records Department [address] [place] [address] Emergency Department Summary 10/02/172006 MR#: [id number] Acct: [id number] Name: SHAILA STOLL Rep #: [id number] : 1950 66 From: Danyel Cai MD PCP: Katlyn Mullins DO Status: REG ER - ER Visit Summary Date of Service: 10/02/17 Chief Complaint: Shortness of breath History of Present Illness: The patient is a 66 M with recent diagnosis of adenocarcinoma of the left lung who had partial lobectomy in July with clear margins who has not started chemotherapy yet presents with increasing dyspnea. She states over the past 2 weeks, he has had some increasing shortness of breath. He feels like he cannot catch his breath. If he walks any distance, he gets very short of breath. He has had no chest pain. He has had a constant cough with scant sputum. He denies any fevers. He has noticed he has had some right calf pain also and noticed that his leg does seem to be more swollen. He is not on anticoagulants. He was seen by pulmonology a week ago and was started on inhalers with little relief. Physical Examination: Vital signs reviewed General: Well-nourished, well-developed Head: Normocephalic, atraumatic Eyes: Pupils equal and reactive, extraocular muscles intact Neck, supple, no lymphadenopathy Heart: Regular tachycardia Respiratory: Diminished in the left base without wheezing or rhonchi Abdomen: Soft, nontender, nondistended, no peritoneal signs Back: Nontender Extremities: Asymmetric edema of right lower extremity. Normal pulses. Tenderness in calf. Skin: Normal color no rash Neuro: Alert and oriented, no focal or lateralizing deficits Test Results: [] Emergency Department Course and Treatment: The patient presents with shortness of breath but he has clear lungs. He does have persistent tachycardia, recent diagnosis of cancer, and asymmetric leg swelling. My concern was obviously for pulmonary emboli. Screening labs are obtained and are relatively unremarkable. The patient underwent CT of his chest. He has numerous bilateral pulmonary emboli. There is no saddle embolus. He has no evidence of acute right ventricular strain. He is not hypoxic. I discussed the patient with oncology who agreed with plan for heparinization. With the patient's dyspnea and significant PE, he will be admitted to the hospital. Patient was discussed with the hospitalist. Treatment Plan: [] Disposition: Admission Impression: 1. Acute bilateral pulmonary emboli This note was generated with [employer] dictation software. It may contain incorrect words, spelling, and punctuation that were not noted in review of the chart prior to signing ED Disposition - Plan for ED Patient: Chief Complaint: Shortness of Breath Referrals: Fernando Mock, DO [NON-STAFF] - What to do if you have Problems For any increased pain, shortness of breath, bleeding, nausea or vomiting, chest pain, or any unexpected problems, contact your Primary Care Provider. Call [facility] ([phone]) or report to the closest Emergency Room. Call 911 if necessary. 10/02/17 4295 <Electronically signed by Danyel Cai MD> Date Danyel Cai MD Cosigner Signature (If Indicated): Date CC: Katlyn Mullins DO CBC W/DIFF, AUTOMATED Collected: 10/02/2017 Status: F Source: [place] 8:10 PM [facility] REPOSITORY TYPE CODE TESTS RESULT OUT OF RANGE REFERENCE UNITS LAB L100.1000 4.4-11.0 K/mm3 Normal WBC 10.2 LAB L100.1200 4.6-6.2 M/mm3 Low RBC 3.61 LAB L100.1300 13.0-16.5 g/dl Low HGB 10.5 LAB L100.1400 40-54 % Low HCT 32.1 LAB L100.1500 80-94 fL Normal MCV 88.9 LAB L100.1600 27.0-32.0 pg Normal MCH 29.1 LAB L100.1700 32-36 g/gl Normal MCHC 32.7 LAB L100.1810 11.6-14.6 % Normal RDW CV 13.7 LAB L100.1820 35.1-43.9 fl High RDW SD 44.7 LAB L100.1900 150-450 K/mm3 Normal PLT 207 LAB L100.2000 6.2-12.0 fl Normal MPV 8.7 LAB L100.2100 47-70 % High NEUT% 78.5 LAB L100.2200 19-41 % Low LY% 9.2 LAB L100.2300 0-10 % Normal MONO% 9.4 LAB L100.2400 0-5 % Normal EO% 2.4 LAB L100.2500 0-1 % Normal BASO% 0.2 LAB L100.2550 0.0-0.9 % Normal IM GRAN % 0.300 Result Comment: IG% - Immature Granulocytes (promyelocytes, myelocytes and metamyelocytes) > 1% indicates that a LEFT SHIFT is Present. LAB L100.2620 2.0-7.7 X10 3/uL High Absolute Neut 8.0 LAB L100.2720 0.83-4.51 X10 3/ul Normal Absolute Lymph 0.93 Performed By: #### L100.0100 #### [facility] [address] [facility] [place], [place], [address] PROTHROMBIN TIME W/INR Collected: 10/02/2017 Status: F Source: [place] 8:10 PM [facility] REPOSITORY TYPE CODE TESTS RESULT OUT OF RANGE REFERENCE UNITS LAB L300.4150 11.7-14.9 SECONDS High PROTIME 15.4 LAB L300.4200 Normal INR 1.2 Performed By: #### L300.3900, L300.4310 #### [facility] [address] [place], [address] PARTIAL THROMBOPLAST Collected: 10/02/2017 Status: F Source: [place] TIME 8:10 PM [facility] [place] REPOSITORY TYPE CODE TESTS RESULT OUT OF RANGE REFERENCE UNITS LAB L300.4310 24.1-36.2 Seconds Normal PTT 32.7 Performed By: #### L300.3900, L300.4310 #### [facility] [address] [place], [address] BASIC METABOLIC Collected: 10/02/2017 Status: F Source: [place] PROFILE (BMP) 8:10 PM [facility] [place] REPOSITORY Order Comment: 'TROP' Serial specimen #1, #2, #3, or #4: 1 TYPE CODE TESTS RESULT OUT OF RANGE REFERENCE UNITS LAB L501.0100 74-106 mg/dL High GLU 114 Result Comment: Fasting Glucose result from 100 to 125 mg/dL suggests IMPAIRED HOMEOSTASIS per A.D.A. criteria. Please note revised GLUCOSE reference range effective 2017. LAB L501.1000 7-18 mg/dL Normal BUN 14 LAB L501.1100 0.70-1.30 mg/dL Normal CREAT,SERUM 0.93 Result Comment: The validity of the calculated GFR AND GFRAA in patients over 70 years has not been determined. Clinical correlation is essential. LAB L501.1110 >60 mL/min Normal EST GFR 87 Result Comment: Non- GFR Calc LAB L501.1115 >60 mL/min Normal EST GFR - AA 105 Result Comment: GFR Calc LAB L501.1255 ml/min Normal Estimated CRCL 82.86 LAB L501.1300 10-20 RATIO Normal BUN/CRE 15.1 LAB L501.2200 8.5-10 mg/dL Normal .1 CA 8.6 LAB L501.5300 136-14 mmol/L Normal 5 NA 139 LAB L501.5600 3.5-5. mmol/L Low 1 K 3.3 LAB L501.5900 98-107 mmol/L Normal CL 105 LAB L501.6100 21.0-3 mmol/L Normal 2.0 CO2 25.0 LAB L501.6200 5-15 Normal GAP 9 Performed By: #### L500.2500, L501.4010 #### [facility] [address] [place], [place], [address] TROPONIN-I Collected: 10/02/2017 Status: F Source: [place] 8:10 PM [facility] [place] REPOSITORY Order Comment: 'TROP' Serial specimen #1, #2, #3, or #4: 1 TYPE CODE TESTS RESULT OUT OF RANGE REFERENCE UNITS LAB L501.4010 <0.06 ng/mL Normal 0.02 TROPONIN-I Result Comment: TROPONIN-I EXPECTED VALUES <0.05 NEGATIVE 0.06 - 0.59 AT RISK OF [place] > OR = 0.60 SUGGEST [place] Performed By: #### L500.2500, L501.4010 #### [facility] [address] [place], [address] BNP,B-TYPE NATRIURETIC Collected: 10/02/2017 Status: F Source: [place] 8:10 PM [facility] [place] REPOSITORY TYPE CODE TESTS RESULT OUT OF RANGE REFERENCE UNITS LAB L503.6620 0-100 pg/mL High B-TYPE 114.6 ALYSA PEP Performed By: #### L503.6620 #### [facility] [address] [place], [address] CHEST 1 VIEW Observed: 10/02/2017 Status: F Source: [place] (PORTABLE) 8:07 PM [facility] [place] REPOSITORY [facility] Services [address] [place] [address] Chest 1 View (Portable) MR#: [id number] Acct: [id number] Name: SHAILA STOLL Rep #: [id number] : 1950 M 66 From: Antonio Hamlin MD PCP: Katlyn Mullins DO Status: REG ER Study: Chest 1 View (Portable) Date of Exam: 10/02/17 Exam# [id number] Ordering Dr: Danyel Cai MD STUDY: X-RAY CHEST REASON FOR EXAM: Male, 66 years old. CHEST PAIN TECHNIQUE: Single frontal view of the chest. COMPARISON: May 11, 2017 FINDINGS: Chronic appearing increased interstitial lung markings. There is an elevated left hemidiaphragm. Scarring or small left pleural effusion. Enlarged heart size. Normal mediastinum and quinton. Normal visualized pulmonary arteries. There is atherosclerotic calcification of the aortic arch with tortuosity. There are diffuse degenerative changes of the visualized thoracic spine. There is degenerative osteoarthritis of the bilateral shoulders. There is no demonstrated abnormality of the visualized soft tissue structures of the upper abdomen. RAD/Chest 1 View (Portable) IMPRESSION: Scarring or small left pleural effusion. Electronically Signed: Antonio Hamlin MD at 21:28 EST , Service support , CC: Danyel Cai MD; Katlyn Mullins DO Flash Ranging Crewmember: Signed CTA CHEST W/WO Observed: 10/02/2017 Status: F Source: [place] CONTRAST 8:07 PM [facility] [place] REPOSITORY [facility] Imaging Services [address] [place] [address] CTA Chest W/WO Contrast MR#: [id number] Acct: [id number] Name: SHAILA STOLL Rep #: [id number] : 1950 M 66 From: Antonio Hamlin MD PCP: Katlyn Mullins DO Status: REG ER Study: CTA Chest W/WO Contrast Date of Exam: 10/02/17 Exam# [id number] Ordering Dr: Danyel Cai MD STUDY: CTA CHEST REASON FOR EXAM: Male, 66 years old. SOB X 2 WEEKS BUT WORSE NOW,ELEVATED BP RADIATION DOSAGE (If Supplied By Facility): CTDIvol = ( 14.13 ) mGy, DLP = ( 549.07 ) mGycm TECHNIQUE: The examination was performed with the intravenous administration of 75ML ml of Isovue 370 contrast material. Post-processing of the angiographic images was performed, with multiplanar reformation and 3D reconstruction. Individualized dose optimization techniques were used for this CT. COMPARISON: 05.15.17 FINDINGS: History of a defect in the right upper lobe, right middle lobe and right lower lobe pulmonary artery. Filling of the main right pulmonary artery and left pulmonary artery. There is no saddle embolus. Filling defect in the left lower lobe and left upper lobe. Normal thoracic aorta and visualized great vessels. There is no demonstrated aortic dissection. Normal heart and pericardium. Normal mediastinum. Normal hilar regions. Normal visualized trachea and bronchi. Left lower lobe infiltrate suggesting pneumonia. Small right pleural effusion. Moderate left pleural effusion. Normal chest wall structures. Normal osseous structures. Normal visualized upper abdomen. CT/CTA Chest W/WO Contrast IMPRESSION: Bilateral pulmonary emboli. There is no saddle embolus. Left lower lobe infiltrate suggesting pneumonia. Small right pleural effusion. Moderate left pleural effusion. N.B. : The above information has been verbally conveyed by Antonio Hamlin MD to Danyel Cai on 10/02/2017 23:07:39 (ET). Electronically Signed: Antonio Hamlin MD at 21:46 EST , Service support , N.B. : The above information has been verbally conveyed by Antonio Hamlin MD to Danyel Cai on 10/02/2017 23:07:39 (ET). CC: Danyel Cai MD; Katlyn Mullins DO Flash Ranging Crewmember: Signed PULMONARY VISIT REPORT Observed: 09/24/2017 Status: F Source: [place] 3:26 PM [facility] [place] REPOSITORY [facility] [address] [place] [address] OFFICE VISIT Date of Service: 09/24/17 MR#: [id number] Acct: [id number] Name: SHAILA STOLL Rep #: [id number] : 1950 Provider: Miguelina Saenz Age/Sex: 66/M [place] [facility] Status: Signed Assessment AND Plan 1. Shortness of breath R06.02 Status Acute Plan Started on Breo. Sample provided in the office today. First dose taken in the office today. Personally instructed on the use of the device. Also ordered pro-air rescue inhaler with instructions on when and how to use. Also personally instructed on HFA device in addition to the Alimta device. Follow-up in 2 weeks to evaluate patient's response to added medications. No additional testing at this time. If symptoms persist with the addition of medication may consider repeating a chest x-ray or further testing. Orders Orders: 2. Adenocarcinoma of left lung C34.92 Plan The patient reports that he begins chemotherapy next week. He is questioning if it is okay to begin the inhaled corticosteroid even though he is starting chemotherapy next week. I assured him that this will be fine. Comorbid illness complicates care. Follow-up in 2 weeks. Plan Detail Other Medications New: albuterol sulfate HFA 90 mcg/actuation (ProAir HFA) administer 2 puffs Inhalation Q4H with spacer Follow Up 2 Weeks ([facility]) HPI Shortness of breath: Chief Complaint: cough HPI Comments Details: This patient presents to the office today for an acute visit regarding increase in shortness of breath. The patient is ambulatory and currently on room air. He reports that since his last office visit, which was on September 02, [address] Mullen, he has noticed an increase in his shortness of breath.At that office visit it was discussed the possibility of placing the patient on an ICS/laba combination inhaler, but at the time the patient felt that his breathing was doing very well and she declined. Recently, over the past few weeks he has noticed an increase in his shortness of breath on exertion. He also notices that he becomes exerted more easily. He denies any cough, sputum production or hemoptysis. He denies any lower extremity edema. He denies any chest heaviness or chest tightness. He denies any palpitations. He denies any chest pain or signs of bleeding such as hematemesis, hematochezia or melena stools. He denies any change in his weight. He has not tried any ands-fcm-pwohubt medications for this shortness of breath. See complete review of systems. Intake Vital Signs09/24/17 Height 5 ft 10 in 09/24/17 Weight: 181 lb 09/24/17 Body Mass Index (BMI) 25.9 Intake Visit Reasons: Shortness of breath Chief Complaint: Chemotherapy Education-Carboplatin/Alimta/Neulasta Accompanied by: Self Allergies morphine Adverse Reaction (Verified 09/24/17 14:40) MAKES HIS NAUSEATED AND SICK Medications Vitamin C 500 mg PO DAILY 06/02/17 [History Confirmed 09/24/17] Aspirin [Aspirin, Baby] 81 mg PO DAILY 09/15/17 [History Confirmed 09/24/17] Dexamethasone 4 mg PO BID #26 tab 09/15/17 [Rx Confirmed 09/24/17] Folic Acid 1 mg PO DAILY@0800 #30 tab 09/15/17 [Rx Confirmed 09/24/17] Lidocaine/Prilocaine [Lidocaine-Prilocaine Cream] 30 gm TP DAILY PRN PRN #1 cream..g. 09/15/17 [Rx Confirmed 09/24/17] Ondansetron HCl [Zofran] 4 mg PO Q8H PRN PRN #30 tab 09/15/17 [Rx Confirmed 09/24/17] albuterol sulfate HFA 90 mcg/actuation aerosol inhaler 2 puff INHALATION Q4H #1 inh 09/24/17 [Rx Confirmed 09/24/17] losartan 50 mg tablet 50 mg PO QDAY 09/24/17 [History Confirmed 09/24/17] PFSH Medical History Viral pharyngitis (Acute) Nasopharyngitis (Acute) Limb weakness (Acute) unusual tierdness (Acute) Sinusitis (Acute) SOB (shortness of breath) (Acute) Dyspnea (Acute) Adenocarcinoma of lung (Chronic) Hyperlipidemia (Acute) Hypertension (Chronic) 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) LYMPH NODE REMOVAL-CHEST (Acute) Surgical History History of prostatectomy (Acute) Family History Father Prostate cancer Liver cancer Liver disease Mother Bone cancer Social History Smoking Status: Former smoker how long ago did patient quit smokin, 2 pk/day second hand exposure: Yes alcohol intake: never substance use type: does not use caffeine: Yes what type of physical activity do you participate in: none frequency: does not exercise seatbelt use: always Review of Systems Const CONSTITUTIONAL: Positive fatigue; negative anorexia, body ache, chills, daytime sleepiness, fever(s), night sweats, oral thrush, stops breathing during sleep, weight loss, sleeping in chair, weight loss, weight gain, frequent colds, seasonal allergies, other, headache(s) or orthopnea EETM Ear Nose Throat Mouth: Positive hearing normal, nasal discharge and post nasal drip; negative hard of hearing, hoarseness, dry mouth in morning, change in vision, itchy eyes, eye pain, swallowing Difficulty, ear pain, nose bleed, headache(s), mouth pain, nasal congestion, sinus pain, sinus pressure, sore throat or other Cardio Cardiovascular: Negative chest pain, chest pain at rest, chest pain with activity, irregular heart rhythm, edema, shortness of breath when lying down, palpitations, murmur or other Resp Respiratory: Positive as per HPI, shortness of breath and cough; negative pain with cough, wheezing, chest congestion, chest tightness, pain on inspiration, inhalers, increase use of rescue inhalers, snoring, apnea or other Gastro Gastrointestional: Negative bloody stools, change in appetite, difficulty swallowing, reflux, hematemesis, melena stool, loose stool, constipation or other Genitourinary: Negative blood in urine, nocturia, pain with urination or other Musc Musculoskeletal: Negative body pain, back pain, neck pain or other Skin/Breast Skin/Breast: Negative dry skin, itching, rash, unusual bruising, breast lump or other Neuro Neurological: Negative restless legs, confusion, weakness or other Psych Psychocological: Negative abnormal sleep pattern, anxiety, thoughts of hurting self/others, hopelessness or other Lymph Lymphatic: Negative easy bleeding, easy bruising, swollen lymph nodes or other Exam Const Constitutional: Positive conversant, cooperative, in no acute respiratory distress, healthy appearing, well developed, well nourished, good hygiene, dyspenic and thin Head Head: Positive normocephalic and atraumatic; negative cyanosis of lips/distal nose Eyes Eye: Positive clear conjunctiva and nystagmus; negative scleral abnormality Ears Ear: Positive hearing normal and external ears normal; negative hard of hearing Nose Nose: Positive external nose normal and no nasal discharge; negative epistaxis Mouth Mouth: Positive post nasal drip, oral mucosae normal, no lesions, dentures and posterior oropharynx is adequate; negative malodorous breath or oral thrush present Mallampati Score: II: Mallampati Score Neck Neck: Positive normal visual inspection, full ROM and trachea midline; negative lymphadenopathy, JVD or tender Chest Wall Chest: Positive normal inspection of the chest and symmetric chest movement; negative increased A/P diameter Resp lung sounds: Positive diminished, clear to auscultation, wheeze present on forced exhalation, normal expiratory time and normal respiratory effort; negative rhonchi, rales, wheezes, dullness to percussion, increased work of breathing or use of accessory muscles Cardio Cardiac: Positive regular rate, regular rhythm, S1 normal and S2 normal; negative murmur GI GI: Positive normal to inspection and normal bowel sounds; negative distended Genitourinary: Positive deferred Musc Musculoskeletal: Positive steady gait and ROM normal; negative kyphosis or scoliosis Skin Pulmonary Skin Exam: Positive intact; negative rash, lesion, ulcers, erythema, scaly or dermal atrophy Pulses Pulse: Yes pulses normal x4 extremities Extremities Extremities: No edema, Yes capillary refill normal, No clubbing, No cyanosis, No stasis dermatitis Neuro Neurologic: Yes conversant, Yes no focal neuro deficits, Yes cooperative, Yes normal cognition, Yes normal coordination, Yes understands questions, Yes normal concentration Lymph Lymphatic: No lymphadenopathy, No tenderness, No cervical adenopathy, No axillary adenopathy Psych Appearance: Positive grossly normal, eye contact and well kempt Mental Status: Positive mental status grossly normal Mood: Positive congruent mood Affect: Positive normal affect Office Procedures Inhaler Training Inhaler Training Procedure performed by: Miguelina Saenz Inhaler Training: Yes personally trained on inhaler use, sample provided, first dose given in the office, expresses understanding and continue to monitor Coding Level of Care Code Off vis,est,level 4 Diagnoses Shortness of breath R06.02 Adenocarcinoma of left lung C34.92 Laterality: left 09/24/17 1526 <Electronically signed by Miguelina VALLES> Date Miguelina VALLES Cosigner Signature: Date (if applicable) CC: Fernando Mock MD SURGERY VISIT REPORT Observed: 09/21/2017 Status: F Source: [place] 10:00 AM [facility] [address] [facility] [address] [place] [address] OFFICE VISIT Date of Service: 09/16/17 MR#: [id number] Acct: [id number] Name: SHAILA STOLL Rep #: [id number] : 1950 Provider: Fritz Valencia MD Age/Sex: 66/M Location: [facility] Status: Signed Intake Vital Signs09/16/17 Height 5 ft 10 in 09/16/17 Weight: 193 lb Intake Visit Reasons: NEEDS PORT Chief Complaint: Chemotherapy Education-Carboplatin/Alimta/Neulasta 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 09/15/17 [Rx Confirmed 09/16/17] Ondansetron HCl [Zofran] 4 mg PO Q8H PRN PRN #30 tab 09/15/17 [Rx Confirmed 09/16/17] PFSH Medical History Viral pharyngitis (Acute) Nasopharyngitis (Acute) Limb weakness (Acute) unusual tierdness (Acute) Sinusitis (Acute) SOB (shortness of breath) (Acute) Dyspnea (Acute) Adenocarcinoma of lung (Chronic) Hyperlipidemia (Acute) Hypertension (Chronic) 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) LYMPH NODE REMOVAL-CHEST (Acute) Surgical History History of prostatectomy (Acute) Family History Father Prostate cancer Liver cancer Liver disease Mother Bone cancer Social History Smoking Status: Former smoker how long ago did patient quit smokin, 2 pk/day second hand exposure: Yes alcohol intake: never substance use type: does not use caffeine: Yes what type of physical activity do you participate in: none frequency: does not exercise seatbelt use: always HPI HPI HPI: HSAILA STOLL, is a 66 M who presents to the office today for evaluation of a port placement. Patient has a significant smoking history underwent a left lower lobe endobronchial biopsy by Dr. Mullen on 05/19/2017. This came back, confirming adenocarcinoma. I am being consulted to place a port for chemotherapy. ROS General General: Yes fatigue; no weight change, appetite, colon cancer, breast cancer or weakness HEENT HEENT: No difficulty swallowing, eye injury, eye surgery, swollen glands or hoarseness Endo Endocrine: No thyroid disease, diabetes mellitus, thyroid cancer, Hair loss, heat intolerance or cold intolerance Skin Skin: No rash or changing moles Musc Musculoskeletal: Yes back problems; no arthritis, rheumatoid arthritis, gout or joint pain Cardio Cardiovascular: Yes high blood pressure; no murmur, pacemaker, heart disease, atrial fibrillation, heart attack, heart stent, palpitations, shortness of breat with exertion or chest pain Psych Psychiatric: No depression, anxiety or hearing voices Resp Respiratory: Yes shortness of breath, No sleep apnea, Yes cough, No COPD, No asthma, No emphysema, No wheezing Gastro Gastrointestinal: No abdominal pain, No nausea or vomiting, No diarrhea, No constipation, No blood in stool, No acid reflux, Yes hemorrhoids, No ulcers, No gallbladder problem, No black,tarry stools [place] Hematologic: No blood thinners, No blood disorders, No bleeding, No anemia, No blood clots Neuro Neurologic: No system reviewed and no additional complaints, except as docu, No as per HPI, No abnormal walking, No abnormal hearing, No abnormal movements, No abnormal speech, No behavioral changes, No burning sensations, No confusion, No seizure-like activity, No unsteadiness, No dizziness, No localized weakness, No frequent falls, No headache(s), No lack of coordination, No loss of vision, No memory loss, No numbness, No other visual disturbances, No radiating pain, No restless legs, No sensory deficit, No fainting, No tingling, No tremor(s), No weakness, No other Exam Const General: well developed, no acute distress, well hydrated Orientation: oriented to person, oriented to place, oriented to time [facility] Head: normocephalic, atraumatic Ears: external ears normal Mouth: moist mucous membranes Eyes Sclera: sclerae normal Pupils: normal by confrontation Neck Neck: no lymphadenopathy noted Neck mass: No Thyroid: symmetrical, thyroid normal Chest Chest palpation AND inspection: normal inspection of the chest Resp Effort AND Inspection: normal respiratory effort Auscultation: clear to auscultation bilaterally Percussion: percussion normal Cardio Rate: regular rate Rhythm: regular rhythm Heart Sounds: no murmurs GI Palpation: soft, no masses, no hepatosplenomegaly, nontender Rectal Exam: other Other: Rectal exam deferred. Extrem General: no clubbing, cyanosis or edema, normal to inspection Assessment AND Plan Problems 1. Cancer of lower lobe of left lung C34.32 Plan I plan to perform a right IJ port a cath placement. The planned surgical procedure was discussed extensively with the patient. The risks, benefits, anticipated outcomes and possible complication were mentioned. My staff has also explained the procedure in understandable terms and the patient was given the option to take printed material concerning the planned procedure. The patient had the opportunity to ask questions concerning the planned procedure. The patient freely consents to the planned procedure. Coding Level of Care Code Off vis,new,level 3 Diagnoses Cancer of lower lobe of left lung C34.32 09/21/17 1000 <Electronically signed by Fritz Valencia MD> Date Fritz Valencia MD Cosigner Signature: Date (if applicable) CC: Fernando Mock MD; Dago Leger MD CBC W/DIFF, AUTOMATED Collected: 09/15/2017 Status: F Source: [place] 9:39 AM [facility] [place] REPOSITORY TYPE CODE TESTS RESULT OUT OF RANGE REFERENCE UNITS LAB L100.1000 4.4-11.0 K/mm3 Normal WBC 8.0 LAB L100.1200 4.6-6.2 M/mm3 Low RBC 3.66 LAB L100.1300 13.0-16.5 g/dl Low HGB 10.9 LAB L100.1400 40-54 % Low HCT 33.1 LAB L100.1500 80-94 fL Normal MCV 90.4 LAB L100.1600 27.0-32.0 pg Normal MCH 29.8 LAB L100.1700 32-36 g/gl Normal MCHC 32.9 LAB L100.1810 11.6-14.6 % Normal RDW CV 14.3 LAB L100.1820 35.1-43.9 fl High RDW SD 46.9 LAB L100.1900 150-450 K/mm3 Normal PLT 240 LAB L100.2000 6.2-12.0 fl Normal MPV 9.1 LAB L100.2100 47-70 % High NEUT% 79.3 LAB L100.2200 19-41 % Low LY% 8.9 LAB L100.2300 0-10 % Normal MONO% 9.1 LAB L100.2400 0-5 % Normal EO% 2.1 LAB L100.2500 0-1 % Normal BASO% 0.3 LAB L100.2550 0.0-0.9 % Normal IM GRAN % 0.300 Result Comment: IG% - Immature Granulocytes (promyelocytes, myelocytes and metamyelocytes) > 1% indicates that a LEFT SHIFT is Present. LAB L100.2620 2.0-7.7 X10 3/uL Normal Absolute Neut 6.4 LAB L100.2720 0.83-4.51 X10 3/ul Low Absolute Lymph 0.71 Performed By: #### L100.0100 #### [facility] [address] [place], [place], [id number] COMPREHENSIVE METABOLIC Collected: 09/15/2017 Status: F Source: [place] 9:39 AM [facility] [place] REPOSITORY Order Comment: Reason for Laboratory Test PRE-CHEMO TYPE CODE TESTS RESULT OUT OF RANGE REFERENCE UNITS LAB L501.0100 74-106 mg/dL Normal GLU 77 Result Comment: Please note revised GLUCOSE reference range effective 2017. LAB L501.1000 7-18 mg/dL Normal BUN 18 LAB L501.1100 0.70-1.30 mg/dL Normal CREAT,SERUM 0.93 Result Comment: The validity of the calculated GFR AND GFRAA in patients over 70 years has not been determined. Clinical correlation is essential. LAB L501.1110 >60 mL/min Normal EST GFR 87 Result Comment: Non- GFR Calc LAB L501.1115 >60 mL/min Normal EST GFR - AA 105 Result Comment: GFR Calc LAB L501.1255 ml/min Normal Estimated CRCL 82.86 LAB L501.1300 10-20 RATIO Normal BUN/CRE 19.3 LAB L501.1500 6.4-8. g/dL Normal 2 T PROT 7.4 LAB L501.1800 3.2-5. g/dL Normal 0 ALB 3.6 LAB L501.1950 2.2-4. g/dL Normal 2 GLOB 3.8 LAB L501.2000 0.9-2. RATIO Normal 4 A/G 0.9 LAB L501.2200 8.5-10 mg/dL Normal .1 CA 8.7 LAB L501.4100 15-37 U/L Normal AST 21 LAB L501.4305 45-117 U/L Normal ALK P 113 LAB L501.4405 16-61 U/L Normal ALT 31 Result Comment: Please note revised ALT reference range effective 2017. LAB L501.4600 0.20-1.00 mg/dL Normal T BILI 0.70 LAB L501.5300 136-145 mmol/L Normal NA 140 LAB L501.5600 3.5-5.1 mmol/L Normal K 4.0 LAB L501.5900 98-107 mmol/L Normal CL 106 LAB L501.6100 21.0-32.0 mmol/L Normal CO2 26.0 LAB L501.6200 5-15 Normal GAP 8 Performed By: #### L500.4050, L501.9940 #### [facility] [address] [place], [address] PSA,TOTAL- DIAGNOSTIC Collected: 09/15/2017 Status: F Source: [place] 9[facility] Order Comment: Reason for Laboratory Test PRE-CHEMO TYPE CODE TESTS RESULT OUT OF RANGE REFERENCE UNITS LAB L501.9940 0.0-4.0 ng/mL PSA, Normal DIAGNOSTIC < 0.01 Result Comment: This test was performed using the TPSA assay method for the [employer] chemistry system. Values obtained with different assay methods cannot be used interchangably. When changing PSA assays in the course of monitoring a patient, additional sequential testing should be carried out to confirm baseline values. Performed By: #### L500.4050, L501.9940 #### [facility] [address] [place], [address] PULMONARY VISIT REPORT Observed: 09/02/2017 Status: F Source: [place] 9:55 AM [facility] REPOSITORY [facility] [address] [place] [address] OFFICE VISIT Date of Service: 09/02/17 MR#: [id number] Acct: [id number] Name: SHAILA STOLL Rep #: [id number] : 1950 Provider: Tavon Mullen MD Age/Sex: 66/M [place] [facility] [place] Status: Signed Assessment AND Plan 1. Adenocarcinoma of left lung C34.92 Plan Patient looks remarkably well following a sleeve resection of the left lower lobe was Stage IIB lung cancer. Patient is having a cough right now, but states this is getting better day by day. Patient does have a well-healed incision and appears to have no complications of therapy at this time. We will repeat pulmonary function test prior to next visit to allow more time for healing. Patient understands that his lung function has decreased, but states he is able to do activities of daily living. Did offer a possible combination inhaler to help with breathlessness, but patient is refusing at this time. Patient is still undecided on whether he wants adjuvant chemotherapy, but is to discuss this with oncology later this month. Obtain complete PFT prior to next visit Orders Orders: 2. removal of left lower lobe lung Plan Patient underwent sleeve lobectomy with good results. Patient unfortunately did have one lymph node test positive, but otherwise patient's hospital course was as expected. Patient understands that this would account for approximately 20% of lung function by classical design. Will repeat pulmonary function tests for the new baseline. Imaging with chest x-ray will likely show a pleural effusion on the left and this would be considered normal and compensatory for the volume loss of the lung. Obtain repeat PFT 3. Prostate cancer C61 Plan Patient has an ongoing history of prostate cancer. Patient is currently on injection therapy and reportedly has good response by PSA criteria. Patient is being followed by oncology. Defer management to oncology. Plan Detail Follow Up 3 Months ([facility]) HPI 3 M FU: Chief Complaint: Shortness of breath on exertion Details: Patient is a 66-year-old male, currently in the care of Dr. Mock, who presents for evaluation secondary to shortness of breath. Since last visit, patient has gone to [facility] for a sleeve lobectomy of the left lower lobe. This was consistent with stage IIb lung adenocarcinoma (T2b, N1, M0). Patient is currently contemplating whether he would want to complete adjuvant chemotherapy with carboplatin. Patient does report a significant post hospital course that has resulted in a chronic dry cough. Patient states pain is well controlled. Incision is well-healed and has no drainage or tenderness. Patient reports a substernal/xiphoid sharp pain with any coughing episodes. There is no baseline pain in this area. Patient denies any current nausea, vomiting, diarrhea, fever, chills or syncope. Patient denies any cyanotic episodes. Patient does report increased shortness of breath, but typically with carrying a load such as a 20 pound weight. Patient states that he is able to ambulate with relative comfort otherwise. Patient does report more dyspnea with walking stairs than he did pre-surgically. Documentation reviewed 14 pages of documentation were reviewed from [facility] and oncology. Patient has successfully undergone a sleeve left lower lobectomy with T2b, N1, M0 disease. The surgery was completed on July 03, 2017. Intake Vital Signs09/02/17 Height 5 ft 10 in 09/02/17 Weight: 88.451 kg Intake Visit Reasons: 3 M FU Accompanied by: Self Allergies morphine Adverse Reaction (Verified 09/02/17 09:05) MAKES HIS NAUSEATED AND SICK Medications Vitamin C 500 mg PO DAILY 06/02/17 [History Confirmed 08/27/17] [facility] Medical History Viral pharyngitis (Acute) Nasopharyngitis (Acute) Limb weakness (Acute) unusual tierdness (Acute) Sinusitis (Acute) SOB (shortness of breath) (Acute) Dyspnea (Acute) Adenocarcinoma of lung (Chronic) Hyperlipidemia (Acute) Hypertension (Chronic) removal of left lower lobe lung (Acute) LYMPH NODE REMOVAL-CHEST (Acute) Surgical History History of prostatectomy (Acute) Family History Father Prostate cancer Liver cancer Liver disease Mother Bone cancer Social History Smoking Status: Former smoker how long ago did patient quit smokin, 2 pk/day second hand exposure: Yes alcohol intake: never substance use type: does not use Review of Systems Const CONSTITUTIONAL: Negative anorexia, body ache, chills, daytime sleepiness, fever(s), night sweats, oral thrush, stops breathing during sleep, weight loss, sleeping in chair, fatigue, weight loss, weight gain, frequent colds, seasonal allergies, other, headache(s) or orthopnea EETM Ear Nose Throat Mouth: Positive hearing normal; negative hard of hearing, hoarseness, dry mouth in morning, change in vision, itchy eyes, eye pain, swallowing Difficulty, ear pain, nose bleed, headache(s), mouth pain, nasal congestion, nasal discharge, post nasal drip, sinus pain, sinus pressure, sore throat or other Cardio Cardiovascular: Negative chest pain, chest pain at rest, chest pain with activity, irregular heart rhythm, edema, shortness of breath when lying down, palpitations, murmur or other Resp Respiratory: Positive as per HPI, shortness of breath and cough cough: Positive non-productive (dry cough/pain); negative pain with cough, wheezing, chest congestion, chest tightness, pain on inspiration, inhalers, increase use of rescue inhalers, snoring, apnea or other Gastro Gastrointestional: Negative bloody stools, change in appetite, difficulty swallowing, reflux, hematemesis, melena stool, loose stool, constipation or other Genitourinary: Negative blood in urine, nocturia, pain with urination or other Musc Musculoskeletal: Negative body pain, back pain, neck pain or other Skin/Breast Skin/Breast: Positive dry skin; negative itching, rash, unusual bruising, breast lump or other Neuro Neurological: Negative restless legs, confusion, weakness or other Psych Psychocological: Negative abnormal sleep pattern, anxiety, thoughts of hurting self/others, hopelessness or other Lymph Lymphatic: Negative easy bleeding, easy bruising, swollen lymph nodes or other Exam Const Constitutional: Positive conversant, cooperative, in no acute respiratory distress, healthy appearing, well developed, well nourished and good hygiene Head Head: Positive normocephalic and atraumatic; negative cyanosis of lips/distal nose, frontal sinus tenderness or maxillary sinus tenderness Eyes Eye: Positive clear conjunctiva; negative nystagmus, scleral abnormality or cataract present Ears Ear: Positive hearing normal and external ears normal; negative hard of hearing Nose Nose: Positive external nose normal, septum normal and no nasal discharge; negative epistaxis or nasal polyp Mouth Mouth: Positive oral mucosae normal, no lesions, dentures and posterior oropharynx is adequate; negative post nasal drip Mallampati Score: I: Mallampati Score Neck Neck: Positive normal visual inspection, full ROM and trachea midline; negative lymphadenopathy or JVD Chest Wall Chest: Positive normal inspection of the chest; negative crepitus or tenderness Approximately 9 cm well-healed incision on the left mid axillary line without any induration, fluctuance or erythema. Resp lung sounds: Positive good air exchange, normal expiratory time, diminished diminished: Positive left and lower, dullness to percussion dullness: Yes lower, Yes left and wheeze present on forced exhalation; negative wheezes, rhonchi, rales or use of accessory muscles Cardio Cardiac: Positive regular rate, regular rhythm, S1 normal, S2 normal and normal PMI; negative murmur, rub or gallop GI GI: Positive normal to inspection and normal bowel sounds; negative distended, ascites or epigastric tenderness Genitourinary: Positive deferred Musc Musculoskeletal: Positive steady gait; negative using an assistive device for ambulation, kyphosis or scoliosis Skin Pulmonary Skin Exam: Positive intact; negative rash, lesion, ulcers, erythema or dermal atrophy Pulses Pulse: Yes pulses normal x4 extremities Extremities Extremities: Yes capillary refill normal, No clubbing, No cyanosis, No edema, No stasis dermatitis Neuro Neurologic: Yes conversant, Yes no focal neuro deficits, Yes normal cognition, Yes cooperative, Yes normal coordination, Yes normal concentration Lymph Lymphatic: No lymphadenopathy, No tenderness, No cervical adenopathy, No axillary adenopathy Psych Appearance: Positive grossly normal Mental Status: Positive mental status grossly normal Mood: Positive congruent mood Affect: Positive normal affect Coding Level of Care Code Off vis,est,level 3 Diagnoses Adenocarcinoma of left lung C34.92 Laterality: left removal of left lower lobe lung Prostate cancer C61 09/02/17 0955 <Electronically signed by Tavon Mullen MD> Date Tavon Mullen MD Cosigner Signature: Date (if applicable) CC: Fernando Mock MD; Dago Leger MD ALLERGIES ALLERGIES DATE TYPE / CODE NAME / CODE REACTION SEVERITY SOURCE 07/03/2018 Drug morphine/F00 MAKES HIS MO Cony [facility] Allergy/4160 0010630(RXNO NAUSEATED AND Hospital 78321(SNOMED RM) SICK Repository CT) ENCOUNTERS ENCOUNTERS ADMIT/DISCHARGE ACCOUNT ADMITTING ENCOUNTER LOCATION SOURCE NUMBER CLASS 07/03/2018/ [id number] [facility], Inpatient [place] 8 5 [place] Encounter [facility] ing:PCURoom: Repository [id number]: 1 07/03/2018 [id number] [facility], Ambulatory BMSBuilding:B [place] 9 [place]em [place].[facility] Repository 07/03/2018 [id number] [facility], Ambulatory BMSBuilding:B [place] 1 [place] MS.[facility] Repository 07/03/2018 [id number] [facility], Ambulatory BMSBuilding:B [place] 3 [place] MS.[facility] Repository 07/03/2018 [id number] [facility], Ambulatory BMSBuilding:B [place] 5 [place] MS.CF.[facility] Repository 07/03/2018 [id number] [facility], Ambulatory BMSBuilding:B [place] 4 [place] MS.CF.[facility] Repository 07/03/2018 [id number] [facility], Ambulatory BMSBuilding:B [place] 8 [place] MS.CF.[facility] Repository 07/03/2018 [id number] [place], Ambulatory BMSBuilding:B [place] 9 [place] MS.CF.[facility] Repository 07/03/2018 [id number] [place], Ambulatory BMSBuilding:B [place] 8 [place] MS.[facility] Repository 07/03/2018 [id number] [facility], Ambulatory BMSBuilding:B [place] 4 [place] MS.CF.[facility] Repository 07/03/2018 [id number] [facility]:B [place] 6 [place] MS.[facility] Repository 07/03/2018 [id number] Denverelf, Ambulatory BMSBuilding:B [place] 2 [place] MS.CF.[facility] Repository 07/03/2018 [id number] [facility], Ambulatory BMSBuilding:B [place] 7 [place] MS.[facility] Repository 07/03/2018 [id number] [facility], Ambulatory BMSBuilding:B [place] 0 [place] MS.CF.[facility] Repository 07/03/2018 [id number] Ambulatory BMSBuilding:W [place] 7 [facility] Repository 07/02/2018 [id number] Ambulatory [place] 9 [facility] Hospital ing:US Repository 07/01/2018 [id number] [facility] [facility] ing[facility] Repository 07/01/2018 [id number] Ambulatory BMSBuilding:B [place] 3 MS.CF.[facility] Hospital Repository 07/01/2018/ [id number] Ambulatory BMSBuilding:B [place] 8 1 MS.[facility] Repository 07/01/2018 [id number] [place] 0 [facility] ing:OMD Repository 06/23/2018 [id number] Ambulatory BMSBuilding:B [place] 9 [place].[facility] Repository 06/22/2018 [id number] Ambulatory BMSBuilding:W [place] 3 [facility] Repository 06/21/2018 [id number] Ambulatory [place] 7 [facility] Hospital ing:PSN Repository 06/21/2018/ [id number] Ambulatory BMSBuilding:B [place] 8 0 MS.[facility] Repository 06/21/2018 [id number] Ambulatory BMSBuilding:B [place] 0 MS.CF.[facility] Hospital Repository 06/18/2018 [id number] Ambulatory BMSBuilding:B [place] 4 MS.CF.[facility] Repository 06/18/2018 [id number] Ambulatory [place] 2 [facility] Hospital ing:CVS Repository 06/15/2018 [id number] Ambulatory BMSBuilding:B [place] 0 MS.CF.[facility] Repository 06/15/2018 [id number] Ambulatory BMSBuilding:B [place] 3 [facility] Repository 06/10/2018 [id number] Ambulatory [place] 4 [facility] Hospital ing:PSN Repository 06/10/2018 [id number] Ambulatory BMSBuilding:W [place] 2 [facility] Repository 06/08/2018 [id number] Ambulatory [place] 9 [facility] Hospital ing:PAVLAB Repository 06/08/2018/ [id number] Ambulatory BMSBuilding:B [place] 8 2 [facility] Repository 05/18/2018 [id number] Ambulatory [place] 3 [facility] Hospital ing:LAB Repository 04/28/2018/ [id number] Ambulatory BMSBuilding:B [place] 8 1 [facility] Repository 04/01/2018/ [id number] Ambulatory BMSBuilding:W [place] 8 9 [facility] Repository 03/31/2018/ [id number] [facility], Ambulatory [place] 8 0 Trung F [facility] Hospital ing:PCURoom: Repository [id number]: 1 03/31/2018 [id number] Laci, Ambulatory BMSBuilding:B [place] 6 Trung F MS.[facility] Repository 03/31/2018 [id number] Samiras, Ambulatory BMSBuilding:B [place] 6 Trung F MS.[facility] Repository 03/31/2018/ [id number] Ambulatory BMSBuilding:W [place] 8 8 [facility] Repository 03/16/2018 [id number] Ambulatory BMSBuilding:B [place] 7 MS.CF.[facility] Hospital Repository 03/09/2018 [id number] [place]ulatory [place] 0 [facility] Hospital ing:CT Repository 02/18/2018/ [id number] Ambulatory BMSBuilding:B [place] 8 4 [facility] Repository 02/08/2018 [id number] Ambulatory BMSBuilding:W [place] 7 [facility] Repository 02/05/2018 [id number] Ambulatory [place] 6 [facility] Hospital ing:PSN Repository 02/04/2018 [id number] Ambulatory [place] 1 [facility] Hospital ing:PSN Repository 02/04/2018 [id number] Ambulatory BMSBuilding:W [place] 8 [facility] Repository 01/14/2018 [id number] Ambulatory BMSBuilding:B [place] 2 [facility] Repository 01/14/2018 [id number] Ambulatory [place] 7 [facility] Hospital ing:PAVLAB Repository 12/15/2017 [id number] Ambulatory BMSBuilding:B [place] 8 MS.CF.[facility] Hospital Repository 11/25/2017/ [id number] Ambulatory BMSBuilding:B [place] 8 4 [facility] Repository 11/24/2017 [id number] Ambulatory BMSBuilding:B [place] 8 MS.[facility] Hospital Repository 11/03/2017 [id number] Ambulatory [place] 5 [facility] Hospital ing:SDC Repository 11/03/2017 [id number] Ambulatory BMSBuilding:B [place] 8 MS.CF.[facility] Hospital Repository 10/13/2017 [id number] Ambulatory BMSBuilding:B [place] 8 [facility] Hospital Repository 10/06/2017 [id number] Ambulatory BMSBuilding:B [place] 6 [facility] Hospital Repository 10/02/2017/ [id number] Braulio De La Rosa Inpatient [place] 8 4 [facility] Hospital ing:PCURoom: Repository [id number]: 1 10/02/2017 [id number] Estrella, Braulio Ambulatory BMSBuilding:B [place] 3 [facility] Repository 10/02/2017 [id number] Estrella, Braulio Ambulatory BMSBuilding:B [place] 0 [place].[facility] Repository 10/02/2017 [id number] Estrella, Braulio Ambulatory BMSBuilding:B [place] 9 [facility] Repository 10/02/2017 [id number] Estrella, Braulio Ambulatory BMSBuilding:B [place] 5 [facility] Repository 10/02/2017/ [id number] Ambulatory BMSBuilding:W [place] 8 8 [facility] Repository 10/02/2017/ [id number] Ambulatory BMSBuilding:B [place] 8 3 MS.CF.[facility] Repository 09/24/2017/ [id number] Ambulatory BMSBuilding:B [place] 8 1 [facility] Repository 09/16/2017/ [id number] Ambulatory BMSBuilding:B [place] 8 7 [facility] Repository 09/15/2017 [id number] Ambulatory BMSBuilding:B [place] 4 [facility] Repository 09/02/2017/ [id number] Ambulatory BMSBuilding:B [place] 8 9 [facility] Repository 08/27/2017 [id number] Ambulatory BMS [place] 6 [facility] Repository 08/17/2017 [id number] Ambulatory BMSBuilding:B [place] 4 [facility] Repository PAYERS PAYERS ENCOUNTER GUARANTOR PAYER SUBSCRIBER SOURCE 07/03/2018 SHAILA Tomlinson Primary SHAILA [id number] Insurance:MEDICARE SHAFFERDOB: [facility] [id number] Number[place] Repository [id number]: [phone]) [id number] [phone] () Date:2018-07-03 07/03/2018 Secondary SHAILA Donnelly Insurance:MEDICAL SHAFFERDOB: [facility] [id number] Hospital Number: Repository [id number] Date:2837-41-23MF [address] [place] [address]UW: 07/03/2018 Tertiary NOT GIVENUNK [place] Insurance:SELF PAY [facility] Number: Effective Repository Date:2018-07-03 07/03/2018 SHAILA A Primary SHAILA A [place] [id number] Insurance:MEDICARE SHAFFERDOB: Community [place] [facility] [id number] Number: Repository [id number]: 330 [id number] [phone] (HP) Date:2018-07-03 07/03/2018 Secondary SHAILA A [place] Insurance:MEDICAL SHAFFERDOB: [facility] [id number] Hospital Number: Repository [id number] Date:1051-93-13ZX[address] [address]BT: 07/03/2018 Tertiary NOT GIVENUNK [place] Insurance:SELF PAY [facility] Number: Effective Repository Date:2018-07-03 07/03/2018 SHAILA A Primary SHAILA A [place] [id number] Insurance:MEDICARE SHAFFERDOB: Community [place] [facility] [id number] [place] [address] Number: Repository [id number]: 330 [id number] [phone] (HP) Date:2018-07-03 07/03/2018 Secondary SHAILA A [place] Insurance:MEDICAL SHAFFERDOB: [facility] [id number] Hospital Number: Repository [id number] Date:2205-43-64MV[address] [address]NK: 07/03/2018 Tertiary NOT GIVENUNK [place] Insurance:SELF PAY [facility] Number: Effective Repository Date:2018-07-03 07/03/2018 SHAILA A Primary SHAILA A [place] [id number] Insurance:MEDICARE SHAFFERDOB: [facility] [place] [facility] [id number] [place] [address] Number: Repository [id number]: 330 [id number] [phone] (HP) Date:2018-07-03 07/03/2018 Secondary SHAILA A [place] Insurance:MEDICAL SHAFFERDOB: [facility] [id number] Hospital Number: Repository [id number] Date:5305-14-09KL[address] [address]UX: 07/03/2018 Tertiary NOT GIVENUNK [place] Insurance:SELF PAY [facility] Number: Effective Repository Date:2018-07-03 07/03/2018 SHAILA A Primary SHAILA A [place] [id number] Insurance:MEDICARE SHAFFERDOB: [facility] PART A [facility] [id number] Number: Repository [id number]: 330 [id number] [phone] (HP) Date:2018-07-03 07/03/2018 Secondary SHAILA A [place] Insurance:MEDICAL SHAFFERDOB: [facility] [id number] Hospital Number: Repository [id number] Date:4266-37-79XK[address] [address]JP: 07/03/2018 Tertiary NOT GIVENUNK [place] Insurance:SELF PAY [facility] Number: Effective Repository Date:2018-07-03 07/03/2018 SHAILA A Primary SHAILA A [place] [id number] Insurance:MEDICARE SHAFFERDOB: [facility] PART A [facility] [id number] Number: Repository [id number]: 330 [id number] [phone] (HP) Date:2018-07-03 07/03/2018 Secondary SHAILA A [place] Insurance:MEDICAL SHAFFERDOB: [facility] [id number] Hospital Number: Repository [id number] Date:[id number] [address] [address]AO: 07/03/2018 Tertiary NOT GIVENUNK [place] Insurance:SELF PAY [facility] Number: Effective Repository Date:2018-07-03 07/03/2018 SHAILA A Primary SHAILA A [place] [id number] Insurance:MEDICARE SHAFFERDOB: [facility] PART A [facility] [id number] Number: Repository [address]Xox: 330 [id number] [phone] (HP) Date:2018-07-03 07/03/2018 Secondary SHAILA A [place] Insurance:MEDICAL SHAFFERDOB: [facility] [id number] Hospital Number: Repository [id number] Date:4986-74-97JI[address] [address]SR: 07/03/2018 Tertiary NOT GIVENUNK [place] Insurance:SELF PAY [facility] Number: Effective Repository Date:2018-07-03 07/03/2018 SHAILA A Primary SHAILA A [place] [id number] Insurance:MEDICARE SHAFFERDOB: [facility] PART A [facility] [id number] [place] [address] Number: Repository [id number]: 330 [id number] [phone] () Date:2018-07-03 07/03/2018 Secondary SHAILA A [place] Insurance:MEDICAL SHAFFERDOB: [facility] [id number] Hospital Number: Repository [id number] Date:7626-01-88IS[address] [address]SE: 07/03/2018 Tertiary NOT GIVENUNK [place] Insurance:SELF PAY [facility] Number: Effective Repository Date:2018-07-03 07/03/2018 SHAILA A Primary SHAILA A [place] [id number] Insurance:MEDICARE SHAFFERDOB: [facility] PART A [facility] [id number] Number: Repository [address]Sho: 330 [id number] [phone] (HP) Date:2018-07-03 07/03/2018 Secondary SHAILA A [place] Insurance:MEDICAL SHAFFERDOB: [facility] [id number] Hospital Number: Repository [id number] Date:0007-10-79KW [facility] [address] [address]CA: 07/03/2018 Tertiary NOT GIVENUNK [place] Insurance:SELF PAY [facility] Number: Effective Repository Date:2018-07-03 07/03/2018 SHAILA A Primary SHAILA A [place] [id number] Insurance:MEDICARE SHAFFERDOB: [facility] [place] [facility] [id number] Number: Repository [id number]: 330 [id number] [phone] () Date:2018-07-03 07/03/2018 Secondary SHAILA A [place] Insurance:MEDICAL SHAFFERDOB: [facility] [id number] Hospital Number: Repository [id number] Date:3938-52-18NR [address] [place] [address]ZJ: 07/03/2018 Tertiary NOT GIVENUNK [place] Insurance:SELF PAY [facility] Number: Effective Repository Date:2018-07-03 07/03/2018 SHAILA A Primary SHAILA A [place] [id number] Insurance:MEDICARE [facility] [id number] Number: Repository [address]Xuq: 330 [id number] [phone] () Date:2018-07-03 07/03/2018 Secondary SHAILA A [place] Insurance:MEDICAL SHAFFERDOB: [facility] [id number] Hospital Number: Repository [id number] Date:8325-69-90AA[address] [address]KS: 07/03/2018 Tertiary NOT GIV[place]UNK [place] Insurance:SELF PAY [facility] Number: Effective Repository Date:2018-07-03 07/03/2018 SHAILA A Primary SHAILA A [place] [id number] Insurance:MEDICARE [facility]FFERDOB: [facility] [id number] Number: Repository [address]Tqw: 330 [id number] [phone] (HP) Date:2018-07-03 07/03/2018 Secondary SHAILA A [place] Insurance:MEDICAL SHAFFERDOB: [facility] [id number] Hospital Number: Repository [id number] Date:5546-72-73LE [address] [address]GV: 07/03/2018 Tertiary NOT GIV[place]UNK [place] Insurance:SELF PAY [facility] Number: Effective Repository Date:2018-07-03 07/03/2018 SHAILA A Primary [place]AILA A [place] [id number] Insurance:MEDICARE SHAFFERDOB: [facility] A [facility] [id number] Number: Repository [id number]: 330 [id number] [phone] () Date:2018-07-03 07/03/2018 Secondary SHAILA A [place] Insurance:MEDICAL SHAFFERDOB: [facility] [id number] Hospital Number: Repository [id number] Date:4213-79-90ZB[address] [address]WC: 07/03/2018 Tertiary NOT GIV[place]UNK [place] Insurance:SELF PAY [facility] Number: Effective Repository Date:2018-07-03 07/03/2018 SHAILA A Primary [place]A A [place] [id number] Insurance:MEDICARE SHAFFERDOB: [facility] [id number] Number: Repository [address]Oey: 330 [id number] [phone] () Date:2018-07-03 07/03/2018 Secondary SHAILA A [place] Insurance:MEDICAL SHAFFERDOB: [facility] [id number] Hospital Number: Repository [id number] Date:4725-33-15VU [address] [address]LJ: 07/03/2018 Tertiary NOT GIVENUNK [place] Insurance:SELF PAY [facility] Number: Effective Repository Date:2018-07-03 07/03/2018 SHALIA A Primary [place]A A [place] [id number] Insurance:MEDICARE [facility] PART A [facility] [id number] Number: Repository [id number]: 330 [id number] [phone] (HP) Date:2018-07-03 07/03/2018 Secondary SHAILA A [place] Insurance:MEDICAL SHAFFERDOB: [facility] 7177-12-97AQL Hospital Number: Repository [id number] Date:8286-63-81SQ [address] [address]HH: 07/03/2018 Tertiary NOT GIVENUNK [place] Insurance:SELF PAY [facility] Number: Effective Repository Date:2018-07-03 07/02/2018 SHAILA A STOLL Primary SHAILA A STOLL [place] [id number] Insurance:MEDICARE Jr.: [facility] PART A [facility] [id number] Number: Repository [id number]: 330 [id number] [phone] (HP) Date:2018-06-22 07/02/2018 Secondary SHAILA A STOLL [place] Insurance:MEDICAL Jr.: [facility] 9000-12-11LVX Hospital Number: Repository [id number] Date:8263-55-67RC [address] [address]DS: 07/02/2018 Tertiary NOT GIVENUNK [place] Insurance:SELF PAY [facility] Number: Effective Repository Date:2018-06-22 07/01/2018 SHAILA A Primary SHAILA A [place] [id number] Insurance:MEDICARE [facility]: [facility] PART A [facility] [id number] Number: Repository [address]Dgx: 330 [id number] [phone] (HP) Date:2018-07-01 07/01/2018 Secondary SHAILA A [place] Insurance:MEDICAL SHAFFERDOB: [facility] [id number] Hospital Number: Repository [id number] Date:7670-31-28PD [address] [place] [address]ON: 07/01/2018 Tertiary NOT GIVENUNK [place] Insurance:SELF PAY [facility] Number: Effective Repository Date:2018-07-01 07/01/2018 SHAILA A Primary [place] [id number] Insurance:MEDICARE SHAFFERDOB: [facility] [id number] Number: Repository [address]Ksg: 330 [id number] [phone] (HP) Date:2017-06-02 07/01/2018 Secondary SHAILA A [place] Insurance:MEDICAL SHAFFERDOB: [facility] 0518-80-08AKF Hospital Number: Repository [id number] Date:8765-14-84AR [address] [address]DB: 07/01/2018 Tertiary NOT GIVENUNK [place] Insurance:SELF PAY [facility] Number: Effective Repository Date:2018-07-01 07/01/2018 SHAILA A Primary [place] [id number] Insurance:MEDICARE SHAFFERDOB: [facility] PART A [facility] [id number] [place] [address] Number: Repository [id number]: 330 [id number] [phone] (HP) Date:2018-07-01 07/01/2018 Secondary SHAILA A [place] Insurance:MEDICAL SHAFFERDOB: [facility] [id number] Hospital Number: Repository [id number] Date:4328ZW[address] [address]AI: 07/01/2018 Tertiary NOT GIV[place]UNK [place] Insurance:SELF PAY [facility] Number: Effective Repository Date:2018-07-01 07/01/2018 SHAILA A Primary [place]A [place] [id number] Insurance:MEDICARE SHAFFERDOB: [facility] PART A [facility] [id number] Number: Repository [address]Voe: 330 [id number] [phone] (HP) Date:2017-06-02 07/01/2018 Secondary SHAILA A [place] Insurance:MEDICAL SHAFFERDOB: [facility] 6760-01-58XUV Hospital Number: Repository [id number] Date:3466-05-86JR [address] [address]QR: 07/01/2018 Tertiary NOT GIVENUNK [place] Insurance:SELF PAY [facility] Number: Effective Repository Date:2017-06-02 06/23/2018 SHAILA A Primary SHAILA A [place] [id number] Insurance:MEDICARE SHAFFERDOB: [facility] [id number] Number: Repository [address]Fyw: 330 [id number] [phone] () Date:2018-06-08 06/23/2018 Secondary SHAILA A [place] Insurance:MEDICAL SHAFFERDOB: [facility] [id number] Hospital Number: Repository [id number] Date:9531-67-57CC[address] [address]VF: 06/23/2018 Tertiary NOT [place]IV[place]UNK [place] Insurance:SELF PAY [facility] Number: Effective Repository Date:2018-06-16 06/22/2018 SHAILA A Primary [place]A A [place] [id number] Insurance:MEDICARE SHAFFERDOB: [facility] [id number], [place] Number: Repository [address]Dnu: 330 [id number] [phone] () Date:2018-06-21 06/22/2018 Secondary SHAILA A [place] Insurance:MEDICAL SHAFFERDOB: [facility] 3835-07-79IDT Hospital Number: Repository [id number] Date:4616-95-55OF[address] [address]EA: 06/22/2018 Tertiary NOT GIVENUNK [place] Insurance:SELF PAY [facility] Number: Effective Repository Date:2018-06-22 06/21/2018 SHAILA A Primary [place] [id number] Insurance:MEDICARE SHAFFERDOB: [facility] PART A [facility] [id number] Number: Repository [address]Pzm: 330 [id number] [phone] (HP) Date:2018-06-21 06/21/2018 Secondary SHAILA A [place] Insurance:MEDICAL SHAFFERDOB: [facility] 2469-05-69MOJ Hospital Number: Repository [id number] Date:0388-41-50SD[address] [address]BW: 06/21/2018 Tertiary NOT GIVENUNK [place] Insurance:SELF PAY [facility] Number: Effective Repository Date:2018-06-21 06/21/2018 SHAILA A Primary [place] [id number] Insurance:MEDICARE SHAFFERDOB: [facility] PART A [facility] [id number], [place] Number: Repository [address]Zir: 330 [id number] [phone] (HP) Date:2018-06-21 06/21/2018 Secondary SHAILA A [place] Insurance:MEDICAL SHAFFERDOB: [facility] 7913-33-49UHB Hospital Number: Repository [id number] Date:4931-33-41ZE[address] [address]JF: 06/21/2018 Tertiary NOT GIVENUNK [place] Insurance:SELF PAY [facility] Number: Effective Repository Date:2018-06-21 06/21/2018 SHAILA A Primary [place]A A [place] [id number] Insurance:MEDICARE SHAFFERDOB: [facility] PART A [facility] [id number], [place] Number: Repository 84[address]Iuh: 330 [id number] [phone] (HP) Date:2017-06-02 06/21/2018 Secondary SHAILA A [place] Insurance:MEDICAL [facility] 3145-06-88ELX Hospital Number: Repository [id number] Date:3350-74-25GR [facility] [address] [address]EO: 06/21/2018 Tertiary NOT GIVENUNK [place] Insurance:SELF PAY [facility] Number: Effective Repository Date:2018-06-21 06/18/2018 SHAILA A Primary SHAILA A [place] [id number] Insurance:MEDICARE [facility]FFERDOB: [facility] [id number], [place] Number: Repository [address]Sbr: 330 [id number] [phone] (HP) Date:2018-06-09 06/18/2018 Secondary SHAILA A [place] Insurance:MEDICAL SHAFFERDOB: [facility] 6751-21-17HWN Hospital Number: Repository [id number] Date:6881-23-58HC [address] [place] [address]BO: 06/18/2018 Tertiary NOT GIVENUNK [place] Insurance:SELF PAY [facility] Number: Effective Repository Date:2018-06-18 06/18/2018 SHAILA A Primary SHAILA A [place] [id number] Insurance:MEDICARE [facility]FFERDOB: [facility] [id number] Number: Repository [address]Zbm: 330 [id number] [phone] () Date:2018-06-09 06/18/2018 Secondary SHAILA A [place] Insurance:MEDICAL SHAFFERDOB: [facility] 3620-95-50JHH Hospital Number: Repository [id number] Date:7276-59-11DD[address] [address]KB: 06/18/2018 Tertiary NOT GIVENUNK [place] Insurance:SELF PAY [facility] Number: Effective Repository Date:2018-06-09 06/15/2018 SHAILA A Primary SHAILA A [place] [id number] Insurance:MEDICARE SHAFFERDOB: [facility] PART A [facility] [id number], [place] Number: Repository [address]Zyv: 330 [id number] [phone] (HP) Date:2017-06-02 06/15/2018 Secondary SHAILA A [place] Insurance:MEDICAL SHAFFERDOB: [facility] [id number] Hospital Number: Repository [id number] Date:3912-61-54DJ [address] [place] [address]FX: 06/15/2018 Tertiary [place]AILA A [place] Insurance:CARESOURCE SHAFFERDOB: [facility] [place] 4234-43-87QCI Hospital Number: Repository [id number] Date:2570-29-57Dm [place] [address] [place] [address]CW: 06/15/2018 Tertiary NOT GIVENUNK [place] Insurance:SELF PAY [facility] Number: Effective Repository Date:2018-06-15 06/15/2018 SHAILA A Primary [place]AILA A [place] [id number] Insurance:MEDICARE SHAFFERDOB: [facility] [id number] Number: Repository [address]Scy: 330 [id number] [phone] () Date:2017-06-02 06/15/2018 Secondary SHAILA A [place] Insurance:MEDICAL SHAFFERDOB: [facility] 2037-65-11CHW Hospital Number: Repository [id number] Date:5652-28-09WQ[address] [address]HX: 06/15/2018 Tertiary NOT GIVENUNK [place] Insurance:SELF PAY [facility] Number: Effective Repository Date:2018-06-15 06/10/2018 SHAILA A Primary [place]A A [place] [id number] Insurance:MEDICARE SHAFFERDOB: [facility] PART A [facility] [id number], [place] Number: Repository [address]Dct: 330 [id number] [phone] (HP) Date:2018-02-18 06/10/2018 Secondary SHAILA A [place] Insurance:MEDICAL SHAFFERDOB: [facility] 9868-97-01HXM Hospital Number: Repository [id number] Date:6018-41-00VD [address] [place] [address]IT: 06/10/2018 Tertiary NOT GIVENUNK [place] Insurance:SELF PAY [facility] Number: Effective Repository Date:2018-02-18 06/10/2018 SHAILA A Primary SHAILA A [place] [id number] Insurance:MEDICARE SHAFFERDOB: [facility] PART A [facility] [id number], [place] Number: Repository [id number]: (983) [id number] [phone] (HP) Date:2018-02-18 06/10/2018 Secondary SHAILA A [place] Insurance:MEDICAL SHAFFERDOB: [facility] 7259-86-65LJR Hospital Number: Repository [id number] Date:2049-63-42ID [address] [place] [address]ET: 06/10/2018 Tertiary NOT GIVENUNK [place] Insurance:SELF PAY [facility] Number: Effective Repository Date:2018-06-10 06/08/2018 SHAILA A STOLL Primary SHAILA A [place]LL [id number] [id number] Insurance:MEDICARE Jr.: [facility] [place] [facility] [id number] [place] [address] Number: Repository [id number]: 330 [id number] [phone] () Date:2018-06-08 06/08/2018 Secondary SHAILA A STOLL [place] Insurance:MEDICAL Jr.: [facility] [id number] Hospital Number: Repository [id number] Date:3525-69-15JB [address] [place] [address]LH: 06/08/2018 Tertiary NOT GIV[place]UNK [place] Insurance:SELF PAY [facility] Number: Effective Repository Date:2018-06-08 06/08/2018 SHAILA A Primary [place] [id number] Insurance:MEDICARE [facility] [place] [facility] [id number] Number: Repository [id number]: (730) [id number] [phone] (HP) Date:2018-04-28 06/08/2018 Secondary SHAILA A [place] Insurance:MEDICAL SHAFFERDOB: [facility] 1917-39-26ALU Hospital Number: Repository [id number] Date:9191-61-20TV[address] [address]PJ: 06/08/2018 Tertiary NOT GIVENUNK [place] Insurance:SELF PAY [facility] Number: Effective Repository Date:2018-05-31 05/18/2018 SHAILA A Primary [place]AILA A [place] [id number] Insurance:MEDICARE SHAFFERDOB: [facility] PART A [facility] [id number] Number: Repository [address]Xme: 330 [id number] [phone] (HP) Date:2018-05-18 05/18/2018 Secondary SHAILA A [place] Insurance:MEDICAL SHAFFERDOB: [facility] 7840-95-06SVA Hospital Number: Repository [id number] Date:8372-62-79SN[address] [address]PJ: 05/18/2018 Tertiary NOT GIVENUNK [place] Insurance:SELF PAY [facility] Number: Effective Repository Date:2018-05-18 04/28/2018 SHAILA A Primary SHAILA A [place] [id number] Insurance:MEDICARE SHAFFERDOB: [facility] PART A [facility] [id number] Number: Repository [id number]: 330 [id number] [phone] (HP) Date:2018-04-27 04/28/2018 Secondary SHAILA A [place] Insurance:MEDICAL SHAFFERDOB: [facility] 6706-12-28HXL Hospital Number: Repository [id number] Date:6889-46-99HI[address] [address]KB: 04/28/2018 Tertiary NOT GIVENUNK [place] Insurance:SELF PAY [facility] Number: Effective Repository Date:2018-04-27 04/01/2018 SHAILA A Primary SHAILA A [place] [id number] Insurance:MEDICARE SHAFFERDOB: [facility] [place] [facility] A [facility] [id number], [place] Number: Repository [address]Ijr: 330 [id number] [phone] (HP) Date:2018-03-31 04/01/2018 Secondary SHAILA A [place] Insurance:MEDICAL SHAFFERDOB: [facility] 6102-78-10KPZ Hospital Number: Repository [id number] Date:6276-20-21OU[address] [address]AV: 04/01/2018 Tertiary NOT GIV[place]UNK [place] Insurance:SELF PAY [facility] Number: Effective Repository Date:2018-04-01 03/31/2018 SHAILA A Primary [place] [id number] Insurance:MEDICARE [facility]FFERDOB: [facility] [id number], [place] Number: Repository [id number]: 330 [id number] [phone] (HP) Date:2018-03-31 03/31/2018 Secondary SHAILA A [place] Insurance:MEDICAL SHAFFERDOB: [facility] 1006-16-29EAP Hospital Number: Repository [id number] Date:1365-56-97GY[address] [address]JI: 03/31/2018 Tertiary NOT GIVENUNK [place] Insurance:SELF PAY [facility] Number: Effective Repository Date:2018-03-31 03/31/2018 SHAILA A Primary [place] [id number] Insurance:MEDICARE SHAFFERDOB: [facility] [place] [facility] A [facility] [id number] Number: Repository [address]Rnl: 330 [id number] [phone] (HP) Date:2018-03-31 03/31/2018 Secondary SHAILA A [place] Insurance:MEDICAL SHAFFERDOB: [facility] 2864-06-75CJQ Hospital Number: Repository [id number] Date:1291-34-20QP[address] [address]YM: 03/31/2018 Tertiary NOT GIVENUNK [place] Insurance:SELF PAY [facility] Number: Effective Repository Date:2018-03-31 03/31/2018 SHAILA A Primary [place] [id number] Insurance:MEDICARE SHAFFERDOB: [facility] PART A [facility] [id number], [place] Number: Repository [id number]: (986) [id number] [phone] () Date:2018-03-31 03/31/2018 Secondary SHAILA A [place] Insurance:MEDICAL SHAFFERDOB: [facility] 7856-05-04OMY Hospital Number: Repository [id number] Date:4229-66-52DI[address] [address]PO: 03/31/2018 Tertiary NOT GIVENUNK [place] Insurance:SELF PAY [facility] Number: Effective Repository Date:2018-03-31 03/31/2018 SHAILA A Primary [place] [id number] Insurance:MEDICARE [facility]FFERDOB: [facility] [id number] Number: Repository [id number]: 330 [id number] [phone] () Date:2018-03-31 03/31/2018 Secondary SHAILA A [place] Insurance:MEDICAL SHAFFERDOB: [facility] 9051-46-61YFH Hospital Number: Repository [id number] Date:9195-60-49DG[address] [address]IT: 03/31/2018 Tertiary NOT [place]IV[place]UNK [place] Insurance:SELF PAY [facility] Number: Effective Repository Date:2018-03-31 03/16/2018 SHAILA A Primary SHAILA A [place] [id number] Insurance:MEDICARE SHAFFERDOB: [facility] PART A [facility] [id number] [place] [address] Number: Repository [id number]: 330 [id number] [phone] () Date:2017-06-02 03/16/2018 Secondary SHAILA A [place] Insurance:MEDICAL SHAFFERDOB: [facility] 3902-12-92CVY Hospital Number: Repository [id number] Date:1022-81-98SX [address] [address]OX: 03/16/2018 Tertiary SHAILA A [place] Insurance:CARESOURCE SHAFFERDOB: [facility] 2796-22-08GRV Hospital Number: Repository [id number] Date:5839-05-86Ay[address] [address]ZS: 03/16/2018 Tertiary NOT GIVENUNK [place] Insurance:SELF PAY [facility] Number: Effective Repository Date:2018-03-16 03/09/2018 SHAILA A Primary SHAILA A [place] [id number] Insurance:MEDICARE SHAFFERDOB: [facility] PART A [facility] [id number] Number: Repository [address]Zpm: 330 [id number] [phone] () Date:2017-12-15 03/09/2018 Secondary SHAILA A [place] Insurance:MEDICAL SHAFFERDOB: [facility] 8333-63-14AAR Hospital Number: Repository [id number] Date:8462-56-45MP[address] [address]WV: 03/09/2018 Tertiary [place] Insurance:CARESOURCE SHAFFERDOB: [facility] FOR [facility] 5728-44-98WPJ Hospital Number: Repository [id number] Date:4428-54-99Yb[address] [address]CB: 03/09/2018 Tertiary NOT GIVENUNK [place] Insurance:SELF PAY [facility] Number: Effective Repository Date:2017-12-15 02/18/2018 SHAILA A Primary [place] [id number] Insurance:MEDICARE SHAFFERDOB: [facility] [place] PART A [facility] [id number], [place] Number: Repository [address]Kzi: 330 [id number] [phone] () Date:2017-11-25 02/18/2018 Secondary SHAILA A [place] Insurance:MEDICAL SHAFFERDOB: [facility] [id number] Hospital Number: Repository [id number] Date:3843-87-99MV[address] [address]LE: 02/18/2018 Tertiary NOT GIVENUNK [place] Insurance:SELF PAY [facility] Number: Effective Repository Date:2018-02-11 02/08/2018 SHAILA A Primary SHAILA A [place] [id number] Insurance:MEDICARE SHAFFERDOB: [facility] PART A [facility] [id number] Number: Repository [address]Jaj: 330 [id number] [phone] () Date:2017-11-25 02/08/2018 Secondary SHAILA A [place] Insurance:MEDICAL SHAFFERDOB: [facility] 6930-09-33QHW Hospital Number: Repository [id number] Date:6748-97-29SD[address] [address]IK: 02/08/2018 Tertiary NOT GIV[place]UNK [place] Insurance:SELF PAY [facility] Number: Effective Repository Date:2018-02-08 02/05/2018 SHAILA A Primary [place] A [place] [id number] Insurance:MEDICARE SHAFFERDOB: [facility] PART A [facility] [id number], [place] Number: Repository [id number]: 330 [id number] [phone] () Date:2017-11-25 02/05/2018 Secondary SHAILA A [place] Insurance:MEDICAL SHAFFERDOB: [facility] 5512-47-88HXP Hospital Number: Repository [id number] Date:0989-39-34OC[address] [address]AS: 02/05/2018 Tertiary NOT GIV[place]UNK [place] Insurance:SELF PAY [facility] Number: Effective Repository Date:2017-11-25 02/04/2018 SHAILA A Primary [place] A [place] [id number] Insurance:MEDICARE SHAFFERDOB: [facility] PART A [facility] [id number], [place] Number: Repository [id number]: 330 [id number] [phone] () Date:2017-11-25 02/04/2018 Secondary SHAILA A [place] Insurance:MEDICAL SHAFFERDOB: [facility] 9768-77-39OOZ Hospital Number: Repository [id number] Date:2355-29-03OD [facility] [address] [place] [address]BU: 02/04/2018 Tertiary SHAILA A [place] Insurance:CARESOURCE SHAFFERDOB: [facility] 2057-10-09IVS Hospital Number: Repository [id number] Date:4381-88-76Bu [place] [address] [address]VH: 02/04/2018 Tertiary NOT GIVENUNK [place] Insurance:SELF PAY [facility] Number: Effective Repository Date:2017-11-25 02/04/2018 SHAILA A Primary [place]AIL[place] A [place] [id number] Insurance:MEDICARE SHAFFERDOB: [facility] PART A [facility] 5022-12-91UFT[place] Number: Repository [address]Ipg: 330 [id number] [phone] () Date:2017-11-25 02/04/2018 Secondary SHAILA A [place] Insurance:MEDICAL SHAFFERDOB: [facility] 5734-65-02JBH Hospital Number: Repository [id number] Date:0614-35-88VW [facility] [address] [place] [address]QM: 02/04/2018 Tertiary SHAILA A [place] Insurance:CARESOURCE SHAFFERDOB: [facility] 3732-38-33RNH Hospital Number: Repository [id number] Date:5531-50-16Xh [address] [place] [address]QG: 02/04/2018 Tertiary NOT [place]UNK [place] Insurance:SELF PAY [facility] Number: Effective Repository Date:2018-02-04 01/14/2018 SHAILA A Primary [place] A [place] [id number] Insurance:MEDICARE SHAFFERDOB: [facility] [place] [facility] A [facility] [id number] Number: Repository [id number]: 330 [id number] [phone] () Date:2017-06-02 01/14/2018 Secondary SHAILA A [place] Insurance:MEDICAL SHAFFERDOB: [facility] [id number] Hospital Number: Repository [id number] Date:9020-21-79TE [address] [address]AY: 01/14/2018 Tertiary SHAILA A [place] Insurance:CARESOURCE [place]FFERDOB[place] [facility] [place] [id number] Hospital Number: Repository [id number] Date:7114-21-27Sn [address] [address]DN: 01/14/2018 Tertiary NOT GIVENUNK [place] Insurance:SELF PAY [facility] Number: Effective Repository Date:2018-01-14 01/14/2018 SHAILA A Primary SHAILA A [place] [id number] Insurance:MEDICARE [facility]DOB[facility] [id number] Number: Repository [id number]: 330 [id number] [phone] () Date:2018-01-14 01/14/2018 Secondary SHAILA A [place] Insurance:MEDICAL SHAFFERDOB: [facility] [id number] Hospital Number: Repository [id number] Date:3595-52-05EY [address] [address]FG: 01/14/2018 Tertiary NOT GIVENUNK [place] Insurance:SELF PAY [facility] Number: Effective Repository Date:2018-01-14 12/15/2017 SHAILA A Primary SHAILA A [place] [id number] Insurance:MEDICARE SHAFFERDOB: [facility] [place] A [facility] [id number] Number: Repository [id number]: 330 [id number] [phone] () Date:2017-06-02 12/15/2017 Secondary SHAILA A [place] Insurance:MEDICAL SHAFFERDOB: [facility] [id number] Hospital Number: Repository [id number] Date:4183-21-78GJ [facility] [address] [place] [address]QW: 12/15/2017 Tertiary SHAILA A [place] Insurance:CARESOURCE SHAFFERDOB: [facility] [id number] Hospital Number: Repository [id number] Date:9835-50-64Rm[address] [address]NB: 12/15/2017 Tertiary NOT GIVENUNK [place] Insurance:SELF PAY [facility] Number: Effective Repository Date:2017-12-15 11/25/2017 SHAILA A Primary [place]A [place] [id number] Insurance:MEDICARE SHAFFERDOB: Community [place] [facility] [id number] Number: Repository [id number]: 330 [id number] [phone] () Date:2017-10-06 11/25/2017 Secondary SHAILA A [place] Insurance:MEDICAL SHAFFERDOB: [facility] [id number] Hospital Number: Repository [id number] Date:3509-39-88CA[address] [address]ZL: 11/25/2017 Tertiary NOT GIVENUNK [place] Insurance:SELF PAY [facility] Number: Effective Repository Date:2017-11-18 11/24/2017 SHAILA A Primary [place] [id number] Insurance:MEDICARE SHAFFERDOB: Community [place] A [facility] [id number] Number: Repository [id number]: [phone] [id number] [phone] (HP) Date:2017-06-02 11/24/2017 Secondary SHAILA A [place] Insurance:MEDICAL SHAFFERDOB: [facility] [id number] Hospital Number: Repository [id number] Date:2307-26-76OA [address] [address]TV: 11/24/2017 Tertiary SHAILA A [place] Insurance:CARESOURCE SHAFFERDOB: [facility] [id number] Hospital Number: Repository [id number] Date:5553-03-30[address], [place] [address]QY: 11/24/2017 Tertiary NOT GIVENUNK [place] Insurance:SELF PAY [facility] Number: Effective Repository Date:2017-11-24 11/03/2017 SHAILA A Primary [place] [id number] Insurance:MEDICARE SHAFFERDOB: [facility] [place] A [facility] [id number] Number: Repository [id number]: [phone] [id number] [phone] () Date:2017-09-17 11/03/2017 Secondary SHAILA A [place] Insurance:MEDICAL SHAFFERDOB: [facility] [id number] Hospital Number: Repository [id number] Date:0145-34-48PJ[address] [address]GQ: 11/03/2017 Tertiary NOT GIVENUNK [place] Insurance:SELF PAY [facility] Number: Effective Repository Date:2017-09-17 11/03/2017 SHAILA A Primary [place]A [place] [id number] Insurance:MEDICARE SHAFFERDOB: Community [place] [facility] [id number] Number: Repository [id number]: [phone] [id number] [phone] (HP) Date:2017-06-02 11/03/2017 Secondary SHAILA A [place] Insurance:MEDICAL SHAFFERDOB: [facility] [id number] Hospital Number: Repository [id number] Date:2954-57-68HQ [address] [address]SG: 11/03/2017 Tertiary NOT GIVENUNK [place] Insurance:SELF PAY [facility] Number: Effective Repository Date:2017-11-03 10/13/2017 SHAILA A Primary SHAILA A [place] [id number] Insurance:MEDICARE SHAFFERDOB: Community [place] [facility] [id number] Number: Repository [id number]: 330 [id number] [phone] () Date:2017-10-13 10/13/2017 Secondary SHAILA A [place] Insurance:MEDICAL SHAFFERDOB: [facility] [id number] Hospital Number: Repository [id number] Date:1850-51-95XE[address] [address]LI: 10/13/2017 Tertiary NOT GIVENUNK [place] Insurance:SELF PAY [facility] Number: Effective Repository Date:2017-10-13 10/06/2017 SHAILA A Primary [place] [id number] Insurance:MEDICARE SHAFFERDOB: Community [place] [facility] [id number] Number[place] Repository [id number]: 330 [id number] [phone] (HP) Date:2017-10-06 10/06/2017 Secondary SHAILA A [place] Insurance:MEDICAL SHAFFERDOB: [facility] [id number] Hospital Number: Repository [id number] Date:3850-79-90GE[address] [address]ZZ: 10/06/2017 Tertiary NOT GIVENUNK [place] Insurance:SELF PAY [facility] Number: Effective Repository Date:2017-10-06 10/02/2017 SHAILA A Primary [place] [id number] Insurance:MEDICARE SHAFFERDOB: Community [place] [facility] [id number] Number: Repository [id number]: 330 [id number] [phone] (HP) Date:2017-10-02 10/02/2017 Secondary SHAILA A [place] Insurance:MEDICAL SHAFFERDOB: [facility] [id number] Hospital Number: Repository [id number] Date:5693-28-06OZ[address] [address]OA: 10/02/2017 Tertiary NOT GIVENUNK [place] Insurance:SELF PAY [facility] Number: Effective Repository Date:2017-10-02 10/02/2017 SHAILA A Primary SHAILA A [place] [id number] Insurance:MEDICARE SHAFFERDOB: Community [place] [facility] [id number] Number: Repository [address]Yyl: 330 [id number] [phone] (HP) Date:2017-10-02 10/02/2017 Secondary SHAILA A [place] Insurance:MEDICAL SHAFFERDOB: [facility] [id number] Hospital Number: Repository [id number] Date:2644-88-34UP[address] [address]SH: 10/02/2017 Tertiary NOT GIVENUNK [place] Insurance:SELF PAY [facility] Number: Effective Repository Date:2017-10-02 10/02/2017 SHAILA A Primary SHAILA A [place] [id number] Insurance:MEDICARE SHAFFERDOB: [facility] [place] A [facility] [id number], [place] Number: Repository [id number]: 330 [id number] [phone] (HP) Date:2017-10-02 10/02/2017 Secondary SHAILA A [place] Insurance:MEDICAL SHAFFERDOB: [facility] [id number] Hospital Number: Repository [id number] Date:3301-10-88GQ[address] [address]ZB: 10/02/2017 Tertiary NOT GIVENUNK [place] Insurance:SELF PAY [facility] Number: Effective Repository Date:2017-10-02 10/02/2017 SHAILA A Primary [place] [id number] Insurance:MEDICARE SHAFFERDOB: Community [place] [facility] [id number] Number: Repository [id number]: [phone] [id number] [phone] (HP) Date:2017-10-02 10/02/2017 Secondary SHAILA A [place] Insurance:MEDICAL SHAFFERDOB: [facility] [id number] Hospital Number: Repository [id number] Date:0906-58-56YA [address] [address]HN: 10/02/2017 Tertiary NOT GIVENUNK [place] Insurance:SELF PAY [facility] Number: Effective Repository Date:2017-10-02 10/02/2017 SHAILA A Primary [place] [id number] Insurance:MEDICARE SHAFFERDOB: Community [place] A [facility] [id number] Number: Repository [id number]: 330 [id number] [phone] () Date:2017-10-02 10/02/2017 Secondary SHAILA A [place] Insurance:MEDICAL SHAFFERDOB: [facility] [id number] Hospital Number: Repository [id number] Date:5493-39-33OB [address] [place] [address]YY: 10/02/2017 Tertiary NOT GIVENUNK [place] Insurance:SELF PAY [facility] Number: Effective Repository Date:2017-10-02 10/02/2017 SHAILA A Primary SHAILA A [place] [id number] Insurance:MEDICARE SHAFFERDOB: Community [place] [facility] [id number] Number: Repository [id number]: [phone] [id number] [phone] () Date:2017-10-02 10/02/2017 Secondary SHAILA A [place] Insurance:MEDICAL SHAFFERDOB: [facility] [id number] Hospital Number: Repository [id number] Date:6947-85-20WV [address] [place] [address]PD: 10/02/2017 Tertiary NOT GIVENUNK [place] Insurance:SELF PAY [facility] Number: Effective Repository Date:2017-10-02 10/02/2017 SHAILA A Primary SHAILA A [place] [id number] Insurance:MEDICARE SHAFFERDOB: [facility] PART A [facility] [id number] Number: Repository [address]Fie: [phone] [id number] [phone] () Date:2017-10-02 10/02/2017 Secondary SHAILA A [place] Insurance:MEDICAL SHAFFERDOB: [facility] [id number] Hospital Number: Repository [id number] Date:2971-95-23UG [address] [place] [address]JX: 10/02/2017 Tertiary NOT GIVENUNK [place] Insurance:SELF PAY [facility] Number: Effective Repository Date:2017-10-02 09/24/2017 SHAILA A Primary SHAILA A [place] [id number] KEV[place] Insurance:CARESOURCE SHAFFERDOB: Community [address] JUST FOR [facility] 7550[place] Number: Repository [id number]: [id number] [phone] Date:8854-04-14Vg [address] () [place], [place] [address]TZ: 09/24/2017 Secondary NOT GIVENUNK [place] Insurance:SELF PAY [facility] Number: Effective Repository Date:2017-09-23 09/16/2017 SHAILA A Primary SHAILA A [place] [id number] [place] Insurance:CARESOURCE SHAFFERDOB: [facility] RDAPPLE JUST FOR [facility] 7757-54-76EDZHobart[place] Number: Repository [address]Bju: [id number] [phone] Date:9390-97-82Nu [address] (HP) [address], [place] [address]RA: 09/16/2017 Secondary NOT GIVENUNK [place] Insurance:SELF PAY [facility] Number: Effective Repository Date:2017-09-15 09/15/2017 SHAILA A Primary SHAILA [id number] [place] Insurance:CARESOURCE SHAFFERDOB: Community [address] [facility] [id number] Number[place] Repository [id number]: [id number] [phone] Date:2216-30-91Ys [address] (HP) [address], [place] [address]EP: 09/15/2017 Secondary NOT GIVENUNK [place] Insurance:SELF PAY [facility] Number: Effective Repository Date:2017-09-15 09/02/2017 SHAILA A Primary SHAILA [id number] [place] Insurance:CARESOURCE SHAFFERDOB: Community [address] [facility] 7168[facility]-13[facility] Number[place] Repository [id number]: [id number] [phone] Date:5453-19-47JJ [address] (HP) [address], [place] [address]AW: 09/02/2017 Secondary NOT GIVENUNK [place] Insurance:SELF PAY [facility] Number: Effective Repository Date:2017-07-13 08/27/2017 Shaila A Primary Shaila [id number] [place] Insurance:CARESOURCE ShafferDOB: Community [address] JUST FOR [facility] [id number] Number[place] Repository [id number]: [id number] [phone] Date:4924-84-50Yp [address] (HP) [address], [place] [address]DD: 08/27/2017 Secondary NOT GIVENUNK [place] Insurance:SELF PAY [facility] Number: Effective Repository Date:2017-08-27 08/17/2017 Shaila A Primary Shaila Davi [place] [id number] [place] Insurance:MERA ThomasB: [facility] 5617-36-22[place]SSRuffs [place] Number: Repository [id number]: [id number] [phone] Date:4276-18-36Pm [address] (XR) [place], [place] [address]QY: 08/17/2017 Secondary NOT GIVENUNK [place] Insurance:SELF PAY [facility] Number: Effective Repository Date:2017-08-17
== END ==
PROVIDERS: Family Provider Family Medicine; PCP Family Medicine; Referring Provider Nurse Practitioner Acute Care; Visit Provider Nurse Practitioner Acute Care
DX: J90 Pleural effusion, not elsewhere classified (principal); Z86.73 Personal history of transient ischemic attack (TIA), and cerebral infarction without residual deficits
CPT/HCPCS: 36415; 83615; 84156; 85610; 85730

== ENCOUNTER → 2018-07-02 09:39 | Outpatient (CLI) | payer MEDICARE, OTHER, SELFPAY ==
[2018-06-21 15:00] VITALS: BMI 28.2
[2018-07-01 12:29] VITALS: BMI 27.9
--- NOTE | 2018-07-02 | IMM_PTH ---
PATIENT: SHAILA STOLL Jr. LOC: [facility]#:[id number] AGE/SX: 74/M ROOM: RE07/02/[address]: HAI Zamora : 1950 BED: DIS: SPEC #: [id number] RECD: 07/05/18 13:15 STATUS: LEAH REQ #: [id number] JOLIE: 07/02/18 00:[address]: Miguelina Saenz NP DEPT: IMMUNOHISTOCHEMISTRY RECD BY: Shayla Mcintosh ENTERED: 07/05/18 13:18 SP TYPE: IMMUNO OTHR DR: Dr. Doron Vernon, DO Tissues: THORACIC FLUID Procedures: Synapto (add) RCC (add) NAPSIN A (add) Brooks Ret (add) CD45 (add) CD56 (add) CHROMO (add) CK14 (add) CK20 (add) CK5-6 (add) HEP PAR (add) KI-67 (add) MACRO (add) P53 (add) TTF1 (add) Vimentin (add) 34BE12 (add) P40 (add) CDX2 (add) PSAP (add) CK7 (initial) NSE (add) S-100 (add) PHYSICIAN & INSTITUTION [place] [id number] SPECIMEN INFORMATION: Tissue Source: Thoracentesis fluid Clinical Info: Pleural effusion Specimen Number: [id number] CPT code: 90368, 35923 x22 METHODOLOGY: Deparaffinized sections of prefer/formalin-fixed tissue or PAP/DQ stained slides are incubated with monoclonal/polyclonal antibodies/oligonucleotide probes. Localization is made via biotin free immunoperoxidase method. Appropriate controls are performed and reacted as expected. Results on target cell population are indicated in the following table: RESULTS: ANTIBODY / CLONE RESULT CK7 (OV-TL12/30) positive CK20 (KS20.8) negative CDX2 ([id number]) negative CD45 (RP2/18) negative CALRET (polyclonal) negative Macro (HAM-56) negative Vimentin (V9) negative TTF-1 (8G7G3/1) negative Napsin A (Rabbit Polyclonal) positive PSAP (PASE/4LJ) negative RCC (PN-15) negative HepPar (OCh1E5) negative P53 (DO-7) negative Ki-67 (30-9) positive, low S-100 (4C4.9) negative 34BE12 (34BE12) positive, dim CD56 (123C3.D5) negative Chromo (LK2H10) negative Synapto (polyclonal) negative NSE Neuron Specific Enolase negative CK5-6 (D5 & 1684) negative CK14 (LL002) negative P40 (BC28) negative These tests were developed and their performance characteristics determined by [facility]. They may not have been cleared or approved by the U.S. Food and Drug Administration. The FDA has determined that such clearance or approval is not necessary. INTERPRETATION: Thoracentesis fluid: Positive for malignant cells, consistent with non-small cell carcinoma. AM:monse 07/07/18 Comment: A non-small cell carcinoma, adenocarcinoma is favored. Case has been reviewed in consultation with Dr. Renee who concurs with the above diagnosis. IDC:SJ
--- NOTE | 2018-07-02 09:41 | US_ITS ---
PROCEDURE: ULTRASOUND GUIDED THORACENTESIS. DATE: July 02, 2018. INDICATION: Male, 67 years old. Left pleural effusion PHYSICIAN: Chacho Babcock M.D. PROCEDURE: The risks, benefits, and alternatives to the procedure were explained to the patient. The specific risks of bleeding, infection, and pneumothorax requiring chest tube insertion were discussed and accepted. Written informed consent was obtained. Ultrasonographic evaluation of the left lower pleural space was carried out. An adequate pocket was identified. The patient was placed in the sitting, upright position. The overlying skin was prepped and draped in sterile fashion. 1% lidocaine was administered subcutaneously for local anesthesia. Under ultrasound guidance, a 5 Slovak thoracentesis needle/catheter system was advanced into the left posterior lower pleural fluid collection. Approximately 1780 mL of blood-tinged fluid fluid was drained. The catheter was removed, and a sterile dressing was applied. A specimen was collected and sent to the laboratory for analysis, as requested by the referring clinician. The patient tolerated the procedure well. A chest x-ray was ordered. US/Thoracentesis W US IMPRESSION: Ultrasound-guided left thoracentesis. Electronically Signed: Chacho Babcock MD at 11:37 EST Tel [phone], Service support ,
[2018-07-02 10:25] VITALS: BP 111/71; BP 82/47; BP 89/50; BP 90/47; PULSE 70; PULSE 71; PULSE 75; PULSE 79; RESP 18; RESP 20; O2SAT 95; O2SAT 98; O2SAT 99
--- NOTE | 2018-07-02 10:45 | RAD_ITS ---
STUDY: X-RAY CHEST REASON FOR EXAM: Male, 67 years old. Status post left thoracentesis. TECHNIQUE: AP inspiration and expiration views were obtained. COMPARISON: Comparison is made with prior study dated October 02, 2017. FINDINGS: The patient is status post left thoracentesis. Residual left pleural-parenchymal changes are seen. There has been improvement in the effusion. There is no evidence of pneumothorax. RAD/Chest Insp/Exp 2 View IMPRESSION: Status post left thoracentesis. Residual pleural-parenchymal changes are seen. There is no evidence of pneumothorax. Electronically Signed: Chacho Babcock MD at 8:17 EST Tel [phone], Service support ,
[2018-07-02 11:00] VITALS: BP 90/39; PULSE 75; RESP 18; O2SAT 95
[2018-07-02 11:03] LABS: Cytology, Body Fluid / CSF SEE PATHOLOGY REPORT
--- NOTE | 2018-07-02 11:03 | FLU_PTH ---
PATIENT: SHAILA STOLL Jr. LOC: [facility]#:[id number] AGE/SX: 74/M ROOM: RE07/02/[address]: HAI Zamora : 1950 BED: DIS: SPEC #: [id number] RECD: 07/02/18 11:54 STATUS: LEAH ADITYA #: [id number] JOLIE: 07/02/18 11:[address]: Miguelina Saenz NP DEPT: CYTOLOGY RECD BY: Lauro Mgaallanes ENTERED: 07/02/18 11:55 SP TYPE: Fluid OTHR DR: Dr. Doron Vernon DO Tissues: Pleural fluid, NOS Procedures: Pap Stain (control) Special Stain Group II Surgery Specimen Level IV Cell Block Cytospin Fluid HEADER OPERATION: Ultrasound-guided left thoracentesis PRE-OP DIAGNOSIS: Pleural effusion TISSUE SUBMITTED: Thoracentesis fluid for cytology DIAGNOSIS CYTOLOGY Thoracentesis fluid for cytology (cytospin and cell block): Positive for malignant cells, consistent with adenocarcinoma. AM:monse 07/05/18 COMMENT Immunohistochemistry ([id number]) supports the above diagnosis. Mucin stain with matched control is positive in malignant cells. PDL-1 study is pending and will be reported as an addendum. This case was discussed with Dr. Mock 07/06/18. Case has been reviewed in consultation with Dr. Renee who concurs with the above diagnosis. IDC:SJ CYTOLOGY STUDY Slides are reviewed. CYTOLOGY GROSS Received is 180 ml of red cloudy fluid labeled with the patient's name and and designated per the requisition as thoracentesis. Submitted for cytology preparation including cell block. / 07/02/18 TC:0 CPT: 29128, 93874, 61123 ADDENDUM ADDENDUM ADDENDUM 07/07/2018 11:46 ADDENDUM 07/29/2018 09:28 ADDENDUM 07/07/2018 11:46 ADDENDUM 07/07/2018 11:46 ADDENDUM 07/07/2018 11:46 ADDENDUM 07/07/2018 11:46 Flow analysis from [facility] does not reveal a lymphoproliferative disorder. The complete flow report is viewable in patient's EMR. PD-L1 (KEYTRUDA) IMMUNOHISTOCHEMISTRY ANALYSIS FROM [facility] INTERPRETATION: No expression Tumor proportion score: <1% Please see complete report in e-chart or EMR for complete details
[2018-07-02 11:04] LABS: Cytology, Body Fluid / CSF SEE PATHOLOGY REPORT
[2018-07-02 12:24] LABS: LDH,Body Fluid 837 Units/l (Not Establ.); Protein, Body Fluid 5.5 g/dL (Not Establ.)
--- OUTSIDE RECORDS SUMMARY | 2018-08-27 04:28 | XMS RPT_ITS ---
:1950 Author Organization OHIP Support Name Relationship Address Phone R Unavailable Unavailable Unavailable STOLL, SANDI Unavailable [address] + [place] [address] R Unavailable Unavailable Unavailable STOLL, SANDI Unavailable [address] + [place] [address] R Unavailable Unavailable Unavailable STOLL, SANDI Unavailable [address] + [place] [address] R Unavailable Unavailable Unavailable STOLL, SANDI Unavailable [address] + [place] [address] R Unavailable Unavailable Unavailable STOLL, SANDI Unavailable [address] + [place] [address] R Unavailable Unavailable Unavailable STOLL, SANDI Unavailable [address] + [place] [address] R Unavailable Unavailable Unavailable STOLL, SANDI Unavailable [address] + [place] [address] R Unavailable Unavailable Unavailable STOLL, SANDI Unavailable [address] + [place] [address] R Unavailable Unavailable Unavailable STOLL, SANDI Unavailable [address] + [place] [address] R Unavailable Unavailable Unavailable STOLL, SANDI Unavailable [address] + [place] [address] R Unavailable Unavailable Unavailable STOLL, SANDI Unavailable [address] + [place] [address] R Unavailable Unavailable Unavailable STOLL, SANDI Unavailable [address] + [place] [address] R Unavailable Unavailable Unavailable STOLL, SANDI Unavailable [address] + [place] [address] R Unavailable Unavailable Unavailable STOLL, SANDI Unavailable [address] + [place] [address] R Unavailable Unavailable Unavailable STOLL, SANDI Unavailable [address] + [place] [address] R Unavailable Unavailable Unavailable STOLL, SANDI Unavailable [address] + [place] [address] R Unavailable Unavailable Unavailable STOLL, SANDI Unavailable [address] + [place] [address] R Unavailable Unavailable Unavailable STOLL, SANDI Unavailable [address] + [place] [address] R Unavailable Unavailable Unavailable STOLL, SANDI Unavailable [address] + [place] [address] R Unavailable Unavailable Unavailable STOLL, SANDI Unavailable [address] + [place] [address] R Unavailable Unavailable Unavailable STOLL, SANDI Unavailable [address] + [place] [address] R Unavailable Unavailable Unavailable STOLL, SANDI Unavailable [address] + [place] [address] R Unavailable Unavailable Unavailable STOLL, SANDI Unavailable [address] + [place] [address] R Unavailable Unavailable Unavailable STOLL, SANDI Unavailable [address] + [place] [address] R Unavailable Unavailable Unavailable STOLL, SANDI Unavailable [address] + [place] [address] R Unavailable Unavailable Unavailable STOLL, SANDI Unavailable [address] + [place] [address] R Unavailable Unavailable Unavailable STOLL, SANDI Unavailable [address] + [place] [address] R Unavailable Unavailable Unavailable STOLL, SANDI Unavailable [address] + [place] [address] R Unavailable Unavailable Unavailable STOLL, SANDI Unavailable [address] + [place] [address] R Unavailable Unavailable Unavailable STOLL, SANDI Unavailable [address] + [place] [address] R Unavailable Unavailable Unavailable STOLL, SANDI Unavailable [address] + [place] [address] R Unavailable Unavailable Unavailable STOLL, SANDI Unavailable [address] + [place] [address] R Unavailable Unavailable Unavailable STOLL, SANDI Unavailable [address] + [place] [address] R Unavailable Unavailable Unavailable STOLL, SANDI Unavailable [address] + [place] [address] R Unavailable Unavailable Unavailable STOLL, SANDI Unavailable [address] + [place] [address] R Unavailable Unavailable Unavailable STOLL, SANDI Unavailable [address] + [place] [address] R Unavailable Unavailable Unavailable STOLL, SANDI Unavailable [address] + [place] [address] R Unavailable Unavailable Unavailable STOLL, SANDI Unavailable [address] + [place] [address] R Unavailable Unavailable Unavailable STOLL, SANDI Unavailable [address] + [place] [address] R Unavailable Unavailable Unavailable STOLL, SANDI Unavailable [address] + [place] [address] R Unavailable Unavailable Unavailable STOLL, SANDI Unavailable [address] + [place] [address] R Unavailable Unavailable Unavailable STOLL, SANDI Unavailable [address] + [place] [address] R Unavailable Unavailable Unavailable STOLL, SANDI Unavailable [address] + [place] [address] R Unavailable Unavailable Unavailable STOLL, SANDI Unavailable [address] + [place] [address] R Unavailable Unavailable Unavailable STOLL, SANDI Unavailable [address] + [place] [address] R Unavailable Unavailable Unavailable STOLL, SANDI Unavailable [address] + [place] [address] R Unavailable Unavailable Unavailable STOLL, SANDI Unavailable [address] + [place] [address] R Unavailable Unavailable Unavailable STOLL, SANDI Unavailable [address] + [place] [address] R Unavailable Unavailable Unavailable STOLL, SANDI Unavailable [address] + [place] [address] R Unavailable Unavailable Unavailable STOLL, SANDI Unavailable [address] + [place] [address] R Unavailable Unavailable Unavailable STOLL, SANDI Unavailable [address] + [place] [address] R Unavailable Unavailable Unavailable STOLL, SANDI Unavailable [address] + [place] [address] R Unavailable Unavailable Unavailable STOLL, SANDI Unavailable [address] + [place] [address] R Unavailable Unavailable Unavailable STOLL, SANDI Unavailable [address] + [place] [address] R Unavailable Unavailable Unavailable STOLL, SANDI Unavailable [address] + [place] [address] R Unavailable Unavailable Unavailable STOLL, SANDI Unavailable [address] + [place] [address] R Unavailable Unavailable Unavailable STOLL, SANDI Unavailable [address] + [place] [address] R Unavailable Unavailable Unavailable STOLL, SANDI Unavailable [address] + [place] [address] R Unavailable Unavailable Unavailable STOLL, SANDI Unavailable [address] + [place] [address] R Unavailable Unavailable Unavailable STOLL, SANDI Unavailable [address] + [place] [address] R Unavailable Unavailable Unavailable STOLL, SANDI Unavailable [address] + [place] [address] R Unavailable Unavailable Unavailable STOLL, SANDI Unavailable [address] + [place] [address] R Unavailable Unavailable Unavailable STOLL, SANDI Unavailable [address] + [place] [address] R Unavailable Unavailable Unavailable STOLL, SANDI Unavailable [address] [phone] [place] [address] R Unavailable Unavailable Unavailable STOLL, SANDI Unavailable [address] [phone] [place] [address] R Unavailable Unavailable Unavailable STOLL, SANDI Unavailable [address] [phone] [place] [address] R Unavailable Unavailable Unavailable STOLL, SANDI Unavailable [address] [phone] [place] [address] R Unavailable Unavailable Unavailable STOLL, SANDI Unavailable [address] [phone] [place] [address] R Unavailable Unavailable Unavailable STOLL, SANDI Unavailable [address] [phone] [place] [address] Care Team Providers Name Role Phone Oracio [...] Unavailable Sebas, Tavon Referring Unavailable Brown, Fernando [facility] Unavailable Dago Leger Consulting Unavailable Miguelina Saenz Attending Unavailable Miguelina Saenz Referring Unavailable Brown, [facility] Unavailable [facility] Unavailable Ashelfah, Ghasem Admitting Unavailable Moodispaw, Kash Consulting Unavailable Skye Haro Attending Unavailable Sebas, Tavon Consulting Unavailable Yusef, Corina Consulting Unavailable Tisha Raza Consulting Unavailable Ashelfah, Ghasem Admitting Unavailable Ashelfah, Ghasem Attending Unavailable [facility] Unavailable Moodispaw, Kash Consulting Unavailable Ashelfah, Ghasem Consulting Unavailable Ashelfah, Ghasem Admitting Unavailable Moodispamisha, Kash Attending Unavailable [facility] Unavailable Moodispaw, Kash Consulting Unavailable Ashelfah, Ghasem Consulting Unavailable Ashelfah, Ghasem Admitting Unavailable Ashelfah, Ghasem Attending Unavailable [facility] Unavailable Moodispaw, Kash Consulting Unavailable Sebas, Tavon Consulting Unavailable Ashelfah, Ghasem Consulting Unavailable Ashelfah, Ghasem Admitting Unavailable Moodiswilly, Kash Attending Unavailable [facility] Unavailable Moodispaw, Kash Consulting Unavailable Sebas, Taovn Consulting Unavailable Ashelfah, Ghasem Consulting Unavailable Ashelfah, Ghasem Admitting Unavailable David Mock D.O. Attending Unavailable [facility] Unavailable Moodispamisha, Kash Consulting Unavailable Sebas, Tavon Consulting Unavailable Yusef, Corina Consulting Unavailable White, Skye Consulting Unavailable Alistair Beard Attending Unavailable Ashelfah, Ghasem Admitting Unavailable David Mock D.O. Attending Unavailable [facility] Unavailable Moodispamisha, Kash Consulting Unavailable Sebas, Tavon Consulting Unavailable Yusef, Corina Consulting Unavailable White, Skye Consulting Unavailable Ashelfah, Ghasem Admitting Unavailable Moodispamisha, Kash Attending Unavailable [facility] Unavailable Moodispaw, Kash Consulting Unavailable Sebas, Tavon Consulting Unavailable Yusef, Corina Consulting Unavailable White, Skye Consulting Unavailable Ashelfah, Ghasem Admitting Unavailable WhiteSkye Attending Unavailable [facility] Unavailable Moodispaw, Kash Consulting Unavailable Sebas, [...] Unknown 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, 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 / Hospital C79.51(ICD-10) Repository 07/12/2018 Unknown J91.0 - Malignant Yusef, Corina Active [place] pleural effusion / Community J91.0(ICD-10) Hospital Repository 07/12/2018 Unknown D63.8 - Anemia in Yusef, Corina Active [place] other chronic Community diseases Hospital classified Repository [...] 06/21/2018 Unknown R06.00 - Dyspnea, Saenz, Active [place] unspecified / Miguelina Community R06.00(ICD-10) Hospital Repository 06/18/2018 Unknown I26.99 - Other Mae, [place] Active [place] pulmonary embolism Community without acute cor Hospital pulmonale / Repository I26.99(ICD-10) 07/05/2018 Unknown Z23 - Encounter Alistair Beard Active [place] for immunization / Community Z23(ICD-10) Hospital Repository 07/12/2018 Unknown C34.90 - Malignant Sebas, Tavon Active [place] neoplasm of Community unspecified part Hospital of unspecified Repository bronchus or lung / C34.90(ICD-10) 06/08/2018 Unknown D64.9 - Anemia, Sebas, Tavon Active [place] unspecified / Community D64.9(ICD-10) Hospital Repository 04/28/2018 Unknown I26.09 - Other Sebas, Tavon Active [place] pulmonary embolism Community with acute cor Hospital pulmonale / Repository I26.09(ICD-10) 04/26/2018 Unknown R07.9 - Chest Zamora, Fritz Active [place] pain, unspecified Community / R07.9(ICD-10) Hospital Repository 02/04/2018 Unknown C34.92 - Malignant Sebas, Tavon Active [place] neoplasm of Community unspecified part Hospital of left bronchus Repository or lung / C34.92(ICD-10) 11/25/2017 Unknown J98.9 - Celeninrobert Katlyn Active [place] Respiratory Community disorder, Hospital unspecified / Repository J98.9(ICD-10) 09/21/2017 Unknown C77.9 - Secondary Yusef, 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, Repository unspecified / C77.9(ICD-10) PROCEDURES PROCEDURES No Procedure Records FoundRESULTS RESULTS LEAD ELECTROCARDIOGRAM Observed: 07/08/2018 Status: F Source: [place] 2:16 PM [facility] REPOSITORY [facility] Cardiovascular Services [address] [place] [address] 12 Lead EKG 07/04/18 0601 MR#: [id number] Acct: [id number] Name: SHAILA STOLL Rep #: [id number] : 1950 67 From: Kash Rollins MD Attending Dr: Skye Haro Status: DIS IN Ordering Dr: Doc Higuera MD Date: 07/04/18 Location: [facility] Sex: M C Admitted: 07/03/18 Test Reason [...] leads) Confirmed by KAREN JOHNSON, KASH ([id number]), slot editor SUMA VANEGAS ([id number]) on 07/08/2018 2:15:52 PM Referred By: DAMION Confirmed By:KASH ROLLINS MD 07/08/18 1415 Date Kash Rollins MD CC: Skye Haro; Doc Higuera; Katlyn Mullins DO Signed DISCHARGE SUMMARY Observed: 07/07/2018 Status: F Source: [place] 10:42 AM [facility] REPOSITORY [facility] Medical Records Department [address] [place] [address] Discharge Summary 07/07/18 1029 MR#: [id number] Acct: [id number] Name: STOLLSHAILA Rep #: [id number] : 1950 67 From: Skye Haro PCP: Katlyn Mullins DO Status: ADM IN Y Location: [place] [address] Discharge Date and Diagnosis - Problem List [...] left lower lobe lung (Chronic) [facility] 07/03/17 [address] Course [address] Treatment Dr. Rollins Cardiology Dr. Leger Oncology Dr. Mock Pulmonary Dr. Raza Hem/Onc Operations: None Procedures: EKG, Thoracentesis Summary of Care Provided: The patient is a 67 y/o M w/ PMHx: Chronic COPD, History of Non small cell Lung CA, HTN, HLD, History of Prostate CA who presented to the [facility] ED on 07/03/18 secondary to ongoing [...] Lindsay at discharge?: Yes Done w/ Acute MA measure.: Yes Code Visit Inpatient E AND M: [id number] Disch Hosp 07/07/18 1042 <Electronically signed by Skye Haro > Date Skye Haro Cosigner Signature (if applicable): Date CC: Skye Haro; Katlyn Mullins DO Signed CBC W/DIFF, AUTOMATED Collected: 07/07/2018 Status: F Source: [place] 6:05 AM [facility] REPOSITORY TYPE CODE TESTS RESULT OUT OF [...] Lymph 1.03 Performed By: #### L100.0100 #### [facility] [address] [place], [place], [id number] BASIC METABOLIC Collected: 07/07/2018 Status: F Source: [place] PROFILE (BMP) 6:05 AM [facility] REPOSITORY TYPE CODE TESTS RESULT OUT OF [...] GAP 7 Performed By: #### L500.2500 #### [facility] [address] [place], [place], [id number] PROTHROMBIN TIME W/INR Collected: 07/07/2018 Status: F Source: [place] 6:05 AM [facility] REPOSITORY TYPE CODE TESTS RESULT OUT OF RANGE REFERENCE UNITS LAB L300.4150 11.7-14.9 SECONDS High PROTIME 15.4 LAB L300.4200 Normal INR 1.2 Performed By: #### L300.3900, L300.4310 #### [facility] [address] [place], [address] PARTIAL THROMBOPLAST Collected: 07/07/2018 Status: F Source: [place] TIME 6:05 AM [facility] REPOSITORY TYPE CODE TESTS RESULT OUT OF REFERENCE UNITS RANGE LAB L300.4310 24.1-36.2 Seconds High PTT 60.0 Performed By: #### L300.3900, L300.4310 #### [facility] [address] [place], [address] 12 LEAD ELECTROCARDIOGRAM Observed: 07/06/2018 Status: F Source: [place] 2:24 PM [facility] REPOSITORY [facility] Cardiovascular Services [address] [place] [address] 12 Lead EKG 07/03/18 0935 MR#: [id number] Acct: [id number] Name: SHAILA STOLL Rep #: [id number] : 1950 67 From: Kash Rollins MD Attending Dr: Skye Haro Status: ADM IN Ordering Dr: Grazyna Hernandez DO Date: 07/03/18 Location: [facility] Sex: M C Admitted: 07/03/18 Test Reason [...] leads) Confirmed by KASH ROLLINS MD ([id number]), slot editor SUMA VANEGAS (56) on 07/06/2018 2:24:13 PM Referred By: RU Confirmed By:KASH ROLLINS MD 07/06/18 1424 Date Kash Rollins MD CC: Skye Haro; Grazyna Hernandez DO; Katlyn Mullins DO Signed CHEST Observed: 07/06/2018 Status: F Source: [place] 1:50 PM [facility] REPOSITORY [facility] Imaging Services [address] [place] [address] Chest MR#: [id number] Acct: [id number] Name: SHAILA STOLL Rep #: [id number] : 1950 M 67 From: Chacho Babcock MD PCP: Katlyn Mullins DO Status: ADM IN Study: Chest Date of Exam: 07/06/18 Exam# [id number] Ordering Dr: Skye Haro STUDY: ASSESSMENT OF [...] Chacho Babcock MD at 14:51 EST Tel [phone], Service support , CC: Skye Haro; Katlyn Mullins DO Copyright Clerk: Signed CONSULTATION Observed: 07/06/2018 Status: F Source: [place] 10:09 AM [facility] REPOSITORY [facility] Medical Records Department [address] [place] [address] Consultation 07/05/18 1533 MR#: [id number] Acct: [id number] Name: SHAILA STOLL Rep #: [id number] : 1950 67 From: Corina Holbrook NP-Kriss PCP: Katlyn Mullins DO Status: ADM IN Location: [place] [address] Subjective Date of Service:: 07/05/18 Chief Complaint: H/o adenocarcinoma-lung, pleural effusion History of Present Illness: Mr. Shaila Stoll is a pleasant 67-year-old gentleman wwith smoker who quit over 20 years ago after a 30+ pack year smoking who was diagnosed with adenocarcinoma of the LLL 05/19/17. On July 03, 2017 he underwent left lower lobe sleeve lobectomy at [facility] by Dr. Alfonso. He is s/p adjuvant [...] and extreme fatigue which prompted presentation to [facility] ED. Found to have experienced NSTEMI [...] 07/03/18 12:57 [place] (Rec: 07/03/18 13:03 [place] [id number]) BMI Required to complete [facility] What is Patient's BMI 26.6 Neurologic Medical [...] EST , Service support , ADDENDUM: 07/03/18 7220 Assessment and Plan 1. Non-small cell lung cancer, adenocarcinoma histology, left lower lobe. Patient is status post left lower lobectomy and lymph node dissection at [facility] July 03, 2017 with R0 resection. Received [...] results of cytology analysis. Corina Holbrook, MSN, PRODUCTION LINE OPERATOR-C, AOCNP Primary Care Provider: Katlyn Mullins Referring Provider: 07/06/18 1000 <Electronically signed by Corina Holbrook SAMPLE GRINDER-C> Date Corina Holbrook SAMPLE GRINDER-C Cosigner Signature (if applicable): Date CC: Tavon Mullen MD; Kash Rollins MD; Katlyn Mullins DO; Corina Holbrook NP Signed CBC-COMPLETE BLOOD CNT Collected: 07/06/2018 Status: F Source: [place] NO DIFF 6:05 AM [facility] REPOSITORY Order Comment: Comments: heparin gtt. protocol [...] MPV 9.3 Performed By: #### L100.0500 #### [facility] [address] [place], [place], [id number] PARTIAL THROMBOPLAST Collected: 07/06/2018 Status: F Source: [place] TIME 6:05 AM [facility] REPOSITORY TYPE CODE TESTS RESULT OUT OF REFERENCE UNITS RANGE LAB L300.4310 24.1-36.2 Seconds High PTT 67.2 Performed By: #### L300.4310 #### [facility] [address] [place], [address] CHEST 1 VIEW Observed: 07/06/2018 Status: F Source: [place] (PORTABLE) 12:00 AM [facility] REPOSITORY [facility] Imaging [place] [address] Chest 1 View (Portable) MR#: [id number] Acct: [id number] Name: SHAILA STOLL Rep #: [id number] : 1950 M 67 From: Kaylene Molina MD PCP: Katlyn Mullins DO Status: ADM IN Study: Chest 1 View (Portable) Date of Exam: 07/06/18 Exam# [id number] Ordering Dr: Skye Haro STUDY: X-RAY CHEST [...] , CC: Skye Haro; Katlyn Mullins DO Copyright Clerk: Signed ECHOCARDIOGRAM COMPLETE Observed: 07/05/2018 Status: F Source: [place] 12:41 PM [facility] REPOSITORY [facility] Cardiovascular [place] [address] Echo Complete 07/05/18 1014 MR#: [id number] Acct: [id number] Name: SHAILA STOLL Rep #: [id number] : 1950 67 From: Kash Rollins MD Attending Dr: Skye Haro Status: ADM IN Ordering Dr: Doc Higuera MD Date: 07/03/18 Location: [facility] Sex: M C Admitted: 07/03/18 Reason For Study: S/P MA Procedure This was a 2D Doppler, Color [...] Dictated: 07/05/18 1014 Date Transcribed: 07/05/18 1240 Copyright Clerk: Signed CONSULTATION Observed: 07/05/2018 Status: F Source: [place] 7:19 AM [facility] Medical Records Department [address] [place] [address] Consultation 07/04/18 0807 MR#: [id number] Acct: [id number] Name: SHAILA STOLL Rep #: [id number] : 1950 67 From: David Mock DO PCP: Katlyn Mullins DO Status: ADM IN Location: [place] [address] Reason for Consult Date of Consultation: 07/04/18 [...] lobe lobectomy in July 2017 at the [facility]. The patient received adjuvant chemotherapy and had [...] the presence of a non-ST segment elevation MA. Past Medical History Past Medical History (Chronic [...] Continue scheduled bronchodilators. 4. Non-ST segment elevation MA The patient is currently being followed by [...] as indicated. This note was generated with PasswordBankation software. It may contain incorrect words, spelling, and punctuation that were not noted in checking the note before signing. Code Visit Inpatient E AND M: [id number] Init Hosp L3 07/05/18 0719 <Electronically signed by David Mock DO> Date David Mock DO Cosigner Signature (if applicable): Date CC: Tavon Mullen MD; Kash Rollins MD; Katlyn Mullins DO; Corina Holbrook NP Signed CBC W/DIFF, AUTOMATED Collected: 07/05/2018 Status: F Source: [place] 6:10 AM [facility] REPOSITORY TYPE CODE TESTS RESULT OUT OF [...] Lymph 0.90 Performed By: #### L100.0100 #### [facility] [address] [place], [address] BASIC METABOLIC Collected: 07/05/2018 Status: F Source: [place] PROFILE ([facility]) 6:10 AM [facility] REPOSITORY TYPE CODE TESTS RESULT OUT OF [...] GAP 10 Performed By: #### L500.2500 #### [facility] [address] [place], [address] PARTIAL THROMBOPLAST Collected: 07/05/2018 Status: F Source: [place] TIME 6:10 AM [facility] REPOSITORY TYPE CODE TESTS RESULT OUT OF REFERENCE UNITS RANGE LAB L300.4310 24.1-36.2 Seconds High PTT 63.0 Performed By: #### L300.4310 #### [facility] [address] [place], [address] MAGNESIUM Collected: 07/05/2018 Status: F Source: [place] 6:10 AM [facility] REPOSITORY TYPE CODE TESTS RESULT OUT OF RANGE REFERENCE UNITS LAB L501.5200 1.6-2.6 mg/dL Normal MG 2.0 Performed By: #### L501.5200 #### [facility] [address] [place], [address] PARTIAL THROMBOPLAST Collected: 07/04/2018 Status: F Source: [place] TIME 8:35 PM [facility] REPOSITORY TYPE CODE TESTS RESULT OUT OF REFERENCE UNITS RANGE LAB L300.4310 24.1-36.2 Seconds High PTT 59.1 Performed By: #### L300.4310 #### [facility] [address] [place], [address] PARTIAL THROMBOPLAST Collected: 07/04/2018 Status: F Source: [place] TIME 2:41 PM [facility] REPOSITORY TYPE CODE TESTS RESULT OUT OF REFERENCE UNITS RANGE LAB L300.4310 24.1-36.2 Seconds High PTT 63.7 Performed By: #### L300.4310 #### [facility] [address] [place], [address] PARTIAL THROMBOPLAST Collected: 07/04/2018 Status: F Source: [place] TIME 8:46 AM [facility] REPOSITORY TYPE CODE TESTS RESULT OUT OF REFERENCE UNITS RANGE LAB L300.4310 24.1-36.2 Seconds High PTT 75.0 Performed By: #### L300.4310 #### [facility] [address] [place], [address] CBC W/DIFF, AUTOMATED Collected: 07/04/2018 Status: F Source: 2:15 AM [facility] REPOSITORY TYPE CODE TESTS RESULT OUT OF [...] Lymph 0.63 Performed By: #### L100.0100 #### [facility] [address] [place], [address] BASIC METABOLIC Collected: 07/04/2018 Status: F Source: [place] PROFILE (BMP) 2:15 AM [facility] REPOSITORY TYPE CODE TESTS RESULT OUT OF [...] Performed By: #### L500.2500, L500.3400, L500.4100 #### [facility] [address] [address] [place], [place], [address] LIVER PROFILE Collected: 07/04/2018 Status: F Source: [place] 2:15 AM [facility] REPOSITORY TYPE CODE TESTS RESULT OUT OF [...] Performed By: #### L500.2500, L500.3400, L500.4100 #### [facility] [address] [place], [place], [address] LIPID PROFILE Collected: 07/04/2018 Status: F Source: [place] 2:15 AM [facility] REPOSITORY TYPE CODE TESTS RESULT OUT OF [...] Performed By: #### L500.2500, L500.3400, L500.4100 #### [facility] [address] [place], [address] PARTIAL THROMBOPLAST Collected: 07/04/2018 Status: F Source: [place] TIME 2:15 AM [facility] REPOSITORY TYPE CODE TESTS RESULT OUT OF REFERENCE UNITS RANGE LAB L300.4310 24.1-36.2 Seconds High PTT 84.4 Performed By: #### L300.4310 #### [facility] [address] [place], [address] PROTHROMBIN TIME W/INR Collected: 07/03/2018 Status: F Source: [place] 6:57 PM [facility] REPOSITORY TYPE CODE TESTS RESULT OUT OF RANGE REFERENCE UNITS LAB L300.4150 11.7-14.9 SECONDS High PROTIME 16.3 LAB L300.4200 Normal INR 1.3 Performed By: #### L300.3900, L300.4310 #### [facility] [address] [place], [address] PARTIAL THROMBOPLAST Collected: 07/03/2018 Status: F Source: [place] TIME 6:57 PM [facility] REPOSITORY TYPE CODE TESTS RESULT OUT OF REFERENCE UNITS RANGE LAB L300.4310 24.1-36.2 Seconds High PTT 45.6 Performed By: #### L300.3900, L300.4310 #### [facility] [address] [place], [address] TROPONIN-I Collected: 07/03/2018 Status: F Source: [place] 3:12 PM [facility] REPOSITORY Order Comment: 'TROP' Serial specimen #1, [...] Not every elevated troponin is indicative of MA. These values should be used with clinical judgement in examining the patient's clinical picture for diagnosis. To establish a diagnosis of MA versus myocardial injury, there must be a demonstrated rise and/or fall in the troponin values, in addition to ischemic symptoms, EKG changes, new regional wall motion abnormality, and/or angiographical evidence. PLEASE NOTE: REFERENCE RANGES EDITED 17 Performed By: #### L501.4010 #### [facility] [address] [facility] [place], [address] CONSULTATION Observed: 07/03/2018 Status: F Source: [place] 2:21 PM [facility] REPOSITORY [facility] Medical Records Department [address] [place] [address] Consultation 07/03/18 1405 MR#: [id number] Acct: [id number] Name: SHAILA STOLL Rep #: [id number] : 1950 67 From: Kash Rollins MD PCP: Katlyn Mullins DO Status: ADM IN Location: [place] [address] Problem List (1) NSTEMI (non-ST elevated myocardial [...] compatible with an acute non-ST segment elevation MA with a history of chest pressure superimposed [...] he does receive IV fluids from his insole and outsole splitter oncologist that he can have transient lower [...] not occur. He does note that his insole and outsole splitter oncologist told him that he may have [...] 80.6 H, Lymph % (Auto) 9.6 L, Traverse % (Auto) 8.4, Eos % (Auto) 0.5, [...] noted above Assessment/Plan 1. Non-ST segment elevation MA The etiology for his abnormal cardiac enzymes [...] and his limited life expectancy per his insole and outsole splitter/oncologist. Was discussed with the patient. The present [...] Dr. Higuera. This note was generated with [employer] software. It may contain incorrect words, spelling, and punctuation that were not noted in checking the note before signing. 07/03/18 1421 <Electronically signed by Kash Rollins MD> Date Kash Rollins MD Cosigner Signature (if applicable): Date CC: Dago Leger MD; Kash Rollins MD; Katlyn Mullins DO Signed CTA CHEST W/WO Observed: 07/03/2018 Status: F Source: [place] CONTRAST 2:05 PM [facility] REPOSITORY [facility] Imaging Services [address] [facility] [place] [address] CTA Chest W/WO Contrast MR#: [id number] Acct: [id number] Name: SHAILA STOLL Rep #: [id number] : 1950 M 67 From: Cruzito Michael MD PCP: Katlyn Mullins DO Status: ADM IN Study: CTA Chest W/WO Contrast Date of Exam: 07/03/18 Exam# [id number] Ordering Dr: Kash Rollins MD ADDENDUM by [...] CC: Kash Rollins MD; Katlyn Mullins DO Copyright Clerk: Signed HISTORY AND PHYSICAL Observed: 07/03/2018 Status: F Source: [place] EXAM 1:11 PM [facility] REPOSITORY [facility] Medical Records Department [address] [place] [address] History and Physical 07/03/18 1256 MR#: [id number] Acct: [id number] Name: SHAILA STOLL Rep #: [id number] : 1950 67 From: Doc Higuera MD PCP: Katlyn Mullins DO Status: ADM IN Y Location: [place] [address] Problem List (1) COPD (chronic obstructive pulmonary [...] is being admitted for acute ST elevation MA, worsening left lower lobe consolidation/atelectasis and unexplained [...] elevated troponin consistent with acute non-ST elevation MA without evidence of acute ischemic changes on EKG. #1 acute non-ST elevation MA: Troponin is elevated at 1.81, no acute [...] therapeutic Lovenox. This note was generated with [facility] dictation software. It may contain incorrect words, spelling, and punctuation that were not noted in checking the note before signing. Code Visit Inpatient E AND M: 24400 Init Hosp L3 07/03/18 1311 <Electronically signed by Doc Higuera MD> Date Doc Higuera MD Cosigner Signature: Date (if applicable) CC: Doc Higuera; Katlyn Mullins DO Signed EMERGENCY DEPARTMENT Observed: 07/03/2018 Status: F Source: [place] SUMMARY 10:44 AM [facility] REPOSITORY [facility] Medical Records Department [address] [facility] [place] [address] Emergency Department Summary 07/03/18 1040 MR#: [id number] Acct: [id number] Name: STOLLSHAILA Rep #: [id number] : 1950 67 From: Grazyna Hernandez DO [...] [Admit] Impression: [Abdominal pain-etiology uncertain Non-ST elevation MA Fatigue] This note was generated with [facility] dictation software. It may contain incorrect words, [...] your Primary Care Provider. Call [facility] ([phone]) or report to the closest Emergency Room. Call 911 if necessary. 07/03/18 1044 <Electronically signed by Grazyna Hernandez DO> Date Grazyna Hernandez DO Cosigner Signature (If Indicated): Date CC: Katlyn Mullins DO LACTIC ACID Collected: 07/03/2018 Status: F Source: [place] 9:32 AM [facility] REPOSITORY Order Comment: Yes/No query for Sepsis Lactate Rule Y TYPE CODE TESTS RESULT OUT OF RANGE REFERENCE UNITS LAB L503.6005 0.4-2.0 mmol/L Normal LACTIC ACID 1.1 Performed By: #### L503.6005 #### [facility] [address] [place], [address] ABDOMEN/PELVIS WITHOUT Observed: 07/03/2018 Status: F Source: [place] CONT 9:22 AM [facility] REPOSITORY [facility] Imaging Services [address] [place] [address] Abdomen/Pelvis without Cont MR#: [id number] Acct: [id number] Name: SHAILA STOLL Davi Rep #: [id number] : 1950 M 67 From: Fritz Lee MD PCP: Katlyn Mullins DO Status: REG ER Study: Abdomen/Pelvis without Cont Date of Exam: 07/03/18 Exam# [id number] Ordering Dr: Grazyna Hernandez DO STUDY: CT [...] CC: Grazyna Hernandez DO; Katlyn Mullins DO Copyright Clerk: Signed CHEST 1 VIEW Observed: 07/03/2018 Status: F Source: [place] (PORTABLE) 9:22 AM [facility] REPOSITORY [facility] Imaging Services [address] [place] [address] Chest 1 View (Portable) MR#: [id number] Acct: [id number] Name: SHAILA STOLL Rep #: [id number] : 1950 M 67 From: Fritz Lee MD PCP: Katlyn Mullins DO Status: REG ER Study: Chest 1 View (Portable) Date of Exam: 07/03/18 Exam# [id number] Ordering Dr: Grazyna Hernandez DO STUDY: X-RAY [...] CC: Grazyna Hernandez DO; Katlyn Mullins DO Copyright Clerk: Signed CBC W/DIFF, AUTOMATED Collected: 07/03/2018 Status: F Source: [place] 9:15 AM [facility] REPOSITORY TYPE CODE TESTS RESULT OUT OF [...] Lymph 0.95 Performed By: #### L100.0100 #### [facility] [address] [place], [place], [address] COMPREHENSIVE METABOLIC Collected: 07/03/2018 Status: F Source: [facility] 9:15 AM [facility] REPOSITORY TYPE CODE TESTS RESULT OUT OF [...] Performed By: #### L500.4050, L501.2450, L501.4010 #### [facility] [address] [facility] [place], [place], [address] LIPASE Collected: 07/03/2018 Status: F Source: [place] 9:15 AM [facility] REPOSITORY TYPE CODE TESTS RESULT OUT OF REFERENCE UNITS RANGE LAB L501.2450 73-393 U/L Low LIPASE 70 Performed By: #### L500.4050, L501.2450, L501.4010 #### [facility] [address] [facility] [place], [place], [address] TROPONIN-I Collected: 07/03/2018 Status: F Source: [place] 9:15 AM [facility] REPOSITORY TYPE CODE TESTS RESULT OUT OF RANGE REFERENCE UNITS LAB L501.4010 <0.045 ng/mL High alert 1.810 TROPONIN-I Result Comment: Critical Result(s) Called at: 09:55:33 07/03/2018 by: Charles Wade to Cipriano HEREDIA TROPONIN-I EXPECTED VALUES <0.045 Negative 0.045 - 0.590 Consistent with Cardiac Damage > OR = 0.600 Critical Value Not every elevated troponin is indicative of MA. These values should be used with clinical judgement in examining the patient's clinical picture for diagnosis. To establish a diagnosis of MA versus myocardial injury, there must be a demonstrated rise and/or fall in the troponin values, in addition to ischemic symptoms, EKG changes, new regional wall motion abnormality, and/or angiographical evidence. PLEASE NOTE: REFERENCE RANGES EDITED 17 Performed By: #### L500.4050, L501.2450, L501.4010 #### [facility] [address] [place], [address] PULMONARY VISIT REPORT Observed: 07/02/2018 Status: F Source: [place] 6:41 PM [facility] REPOSITORY [facility] [address] [place] [address] OFFICE VISIT Date of Service: 07/01/18 MR#: [id number] Acct: [id number] Name: SHAILA STOLL Rep #: [id number] : 1950 Provider: Miguelina Saenz Age/Sex: 67/M Location: [facility] Status: Signed Assessment AND Plan 1. 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 2.5 mg Continuous Nebul 7N49 10/01/18 9641-4968-61 MYLAN ization Coding Level of Care Code Off vis,est,level 4 Diagnoses Pleural effusion, malignant J91.0 COPD (chronic obstructive pulmonary disease) J44.9 07/02/18 1841 <Electronically signed by Miguelina VALLES> Date Miguelina VALLES Cosigner Signature: Date (if applicable) CC: Fernando Mock DO PROTEIN, BODY FLUID Collected: 07/02/2018 Status: F Source: [place] 11:03 AM [facility] REPOSITORY Order Comment: Specimen Source: THORACENTESIS TYPE CODE TESTS RESULT OUT OF RANGE REFERENCE UNITS LAB L503.0300 Not Establ. g/dL Normal 5.5 PROTEIN,BF Performed By: #### L503.0300, L504.0250 #### [place] [facility] [address] [place], [address] LDH,BODY FLUID Collected: 07/02/2018 Status: F Source: [place] 11:03 AM [facility] REPOSITORY Order Comment: Specimen Source: THORACENTESIS TYPE CODE TESTS RESULT OUT OF RANGE REFERENCE UNITS LAB L504.0250 Not Establ. Units/l Normal LDH,BF 837 Performed By: #### L503.0300, L504.0250 #### [facility] [address] [place], [address] Observed: 07/02/2018 Status: F Source: [place] CULTURE, BODY FLUID 11:03 [facility] REPOSITORY List Antibiotics Last 48 Hours? UNK List Antibiotics to be Started? UNK Gram Stain Centrifuged Specimen? Culture performed on centrifuged specimen Gram Stain 3+ White Blood Cells No organisms seen Body Fluid Cult No growth aerobically. Cult, Anaerobic No growth in 5 days. Performed By: #### M100.1300 #### [facility] [address] [place], [address] FLUID/WASHING Observed: 07/02/2018 Status: F Source: [place] 11:03 [facility] REPOSITORY Patient: SHAILA STOLL : 1950 (67/M) Acct Num: [id number] Phys: Miguelina Saenz SAMPLE GRINDER Unit Num: [id number] Loc: US Specimen: [id number] Received: 07/02/18 - 1154 Spec Type: Fluid TISSUES 1 TISSUES: Pleural fluid, NOS ADDENDUM Addendum Number 1 Flow analysis from [facility] does not reveal a lymphoproliferative disorder. The complete flow report is viewable in patient's EMR. Addendum Signed Rakesh [facility] 07/07/18 <signature on file> COMMENT Immunohistochemistry ([id number]) supports the above diagnosis. Mucin stain with [...] including cell block. / 07/02/18 TC:0 CPT: 83078, 35212, 44833 CYTOLOGY STUDY Slides are reviewed. DIAGNOSIS CYTOLOGY Thoracentesis fluid for cytology (cytospin and cell block): Positive for malignant cells, consistent with adenocarcinoma. AM:rg 07/05/18 HEADER OPERATION: Ultrasound-guided left thoracentesis PRE-OP DIAGNOSIS: Pleural effusion TISSUE SUBMITTED: Thoracentesis fluid for cytology Signed Rakesh [facility] 07/07/18 <signature on file> Performed By: #### PFLU #### [facility] [address] [place], [address] CYTOLOGY, BODY FLUID / Collected: 07/02/2018 Status: F Source: [place] CSF 11:03 AM [facility] REPOSITORY Order Comment: Comments: with flow cytometry Comments: with flow cytometry Specimen Source: THORACENTESIS TYPE CODE TESTS RESULT OUT OF RANGE REFERENCE UNITS LAB L350.1000 SEE Normal PATHOLOGY CYTOLOGY,BF REPORT /CSF Result Comment: Specimen submitted to Anatomical Pathology Department for testing. Performed By: #### L350.1000 #### [facility] [address] [place], [address] MISCELLANEOUS LAB Collected: 07/02/2018 Status: F Source: [place] PROCEDURE 11:00 AM [facility] REPOSITORY Order Comment: Comments: [id number] pleural effusion Test(s) Ordered: Flow [id number] TYPE CODE TESTS RESULT OUT OF RANGE REFERENCE UNITS LAB L801.1541 Normal [facility] FLOW SEE PATH TEST Performed By: #### L801.1541 #### [facility] [address] [place], [address] CHEST INSP/EXP 2 VIEW Observed: 07/02/2018 Status: F Source: [place] 10:43 AM [facility] REPOSITORY [facility] Imaging Services [address] [place] [address] Chest Insp/Exp 2 View MR#: [id number] Acct: [id number] Name: SHAILA STOLL Rep #: [id number] : 1950 M 67 From: Chacho Babcock MD PCP: Katlyn Mullins DO Status: REG CLI Study: Chest Insp/Exp 2 View Date of Exam: 07/02/18 Exam# [id number] Ordering Dr: Chacho Babcock MD STUDY: X-RAY [...] Chacho Babcock MD at 8:17 EST Tel [phone], Service support , CC: Chacho Babcock MD; Katlyn Mullins DO Copyright Clerk: Signed THORACENTESIS W US Observed: 07/02/2018 Status: F Source: [place] 9:41 AM [facility] REPOSITORY [facility] Imaging Services [address] [place] [address] Thoracentesis W US MR#: [id number] Acct: [id number] Name: JERMANSHAILA Davi Rep #: [id number] : 1950 M 67 From: Chacho Babcock MD PCP: Katlyn Mullins DO Status: REG CLI Study: Thoracentesis W US Date of Exam: 07/02/18 Exam# [id number] Ordering Dr: Miguelina Saenz SAMPLE GRINDERSusana PROCEDURE: ULTRASOUND GUIDED THORACENTESIS. DATE: July 02, [...] local anesthesia. Under ultrasound guidance, a 5 [place] Helenian thoracentesis needle/catheter system was advanced into the [...] Chacho Babcock MD at 11:37 EST Tel [phone], Service support , CC: Miguelina Mullins DO Copyright Clerk: Signed IMMUNOHISTOCHEMISTRY Observed: 07/02/2018 Status: F Source: [place] 12:00 AM [facility] REPOSITORY Patient: SHAILA STOLL : 1950 (67/M) Acct Num: [id number] Phys: Miguelina Saenz NP Unit Num: [id number] Loc: [place] Specimen: [id number] Received: 07/05/181314 Spec Type: IMMUNO TISSUES 1 TISSUES: THORACIC FLUID SPECIMEN INFORMATION: Tissue Source: Thoracentesis fluid Clinical Info: Pleural effusion Specimen Number: [id number] CPT code: 48818, 85273 x22 METHODOLOGY: Deparaffinized sections of prefer/formalin-fixed tissue or PAP/DQ stained slides are incubated with monoclonal/polyclonal antibodies/oligonucleotide probes. Localization is made via biotin free immunoperoxidase method. Appropriate controls are performed and reacted as expected. Results on target cell population are indicated in the following table: RESULTS: ANTIBODY / CLONE RESULT CK7 (OV-TL12/30) positive CK20 (KS20.8) negative CDX2 (SGD0231X) negative CD45 (RP2/18) negative CALRET (polyclonal) negative [...] developed and their performance characteristics determined by [facility]. They may not have [...] the above diagnosis. IDC: PHYSICIAN AND INSTITUTION [place] [address] Signed Rakesh Schwartz 07/07/18 <signature on file> Performed By: #### PIMM #### [facility] [address] [place], [address] PROTHROMBIN TIME W/INR Collected: 07/01/2018 Status: F Source: [place] 1:57 PM [facility] REPOSITORY TYPE CODE TESTS RESULT OUT OF RANGE REFERENCE UNITS LAB L300.4150 11.7-14.9 SECONDS High PROTIME 15.4 LAB L300.4200 Normal INR 1.2 Performed By: #### L300.3900, L300.4310 #### [facility] [address] [place], [address] PARTIAL THROMBOPLAST Collected: 07/01/2018 Status: F Source: [place] TIME 1:57 PM [facility] REPOSITORY TYPE CODE TESTS RESULT OUT OF REFERENCE UNITS RANGE LAB L300.4310 24.1-36.2 Seconds High PTT 41.7 Performed By: #### L300.3900, L300.4310 #### [facility] [address] [place], [address] PROTEIN, TOTAL Collected: 07/01/2018 Status: F Source: [place] 1:57 PM [facility] REPOSITORY Order Comment: Serial Specimen #1, #2 or #3? 0 TYPE CODE TESTS RESULT OUT OF RANGE REFERENCE UNITS LAB L501.1500 6.4-8.2 g/dL High T PROT 8.7 LAB L501.1950 2.2-4.2 g/dL High GLOB 5.7 LAB L501.2000 0.9-2.4 RATIO Low A/G 0.5 Performed By: #### L001.0705, L504.2610 #### [facility] [address] [place], [address] LDH Collected: 07/01/2018 Status: F Source: [place] 1:57 PM [facility] REPOSITORY Order Comment: Serial Specimen #1, #2 or #3? 0 TYPE CODE TESTS RESULT OUT OF RANGE REFERENCE UNITS LAB L504.2610 87-241 U/L Normal LDH 233 Performed By: #### L001.0705, L504.2610 #### [facility] [address] [place], [address] ONCOLOGY VISIT REPORT Observed: 07/01/2018 Status: F Source: [place] 12:33 PM [facility] REPOSITORY [facility] [address] [place] [address] OFFICE VISIT Date of Service: 07/01/18 1226 MR#: [id number] Acct: [id number] Name: SHAILA STOLL Rep #: [id number] : 1950 From: Dago Leger MD Age/Sex: [...] radical prostatectomy in October 2014 for a Bellevue score 9 adenocarcinoma involving about 80% of [...] underwent left lower lobe sleeve lobectomy at [facility] by Dr. Alfonso. Final pathology revealed a [...] lower lobectomy and lymph node dissection at [facility] July 03, 2017 with R0 resection. Pathologic [...] F Source: [place] -THIGH SUBS 9:34 AM [facility] REPOSITORY [facility] Imaging Services [address] [place] [address] PET/CT Tumor Base -Thigh Subs MR#: [id number] Acct: [id number] Name: SHAILA STOLL Rep #: [id number] : 1950 M 67 From: Lauro Lopez DO PCP: Fernando Mock DO Status: REG RCR Study: PET/CT Tumor Base -Thigh Subs Date of Exam: 06/28/18 Exam# [id number] Ordering Dr: Dago Leger MD EXAMINATION: FDG [...] CC: Fernando Mock DO; Dago Leger MD Copyright Clerk: Signed 6 MINUTE WALK TEST Observed: 06/22/2018 Status: F Source: [place] 8:41 AM [facility] REPOSITORY [facility] Pulmonary Services/Neurology [facility] [place] [address] [place] [address] MR#: [id number] Acct: [id number] Name: SHAILA STOLL Rep #: [id number] : 1950 67 From: David Mock DO Referring Dr: Miguelina Saenz SAMPLE GRINDER Date: Ordering Dr: Sex: M C Location: PSN PSN 6 Minute Walk Test - 6 Minute Walk Test 6 Minute Walk Test: 6 Minute Walk Test PSN:6-Minute Walk Test Start: 06/21/18 16:36 Freq: Status: Active Protocol: RESP.6MINW Document 06/21/18 16:15 [facility] (Rec: 06/21/18 16:46 [facility] [id number]) 6 Minute Walk Test Date Performed 06/21/18 [...] CC: Date Dictated: 06/22/18838 Date Transcribed: 06/22/18838 Copyright Clerk: David Mock DO Signed PULMONARY VISIT REPORT Observed: 06/21/2018 Status: F Source: [place] 4:32 PM [facility] REPOSITORY [facility] [address] [place] [address] OFFICE VISIT Date of Service: 06/21/18 MR#: [id number] Acct: [id number] Name: SHAILA STOLL Rep #: [id number] : 1950 Provider: Miguelina Saenz Age/Sex: 67/M Location: [facility] Status: Signed Assessment AND Plan 1. SOB [...] gets flushed. He has not tried any bvoc-pic-rwzyjvw medications for his symptoms. He is not [...] #30 ml 04/28/18 [Rx Confirmed 06/21/18] FORMERLY [facility], 1928–1983 Medical History Viral pharyngitis (Acute) Nasopharyngitis (Acute) [...] 06/21/2018 Status: F Source: [place] 11:27 AM [facility] REPOSITORY [facility] [address] [facility] [place] [address] OFFICE VISIT Date of Service: 06/21/1859 MR#: [id number] Acct: [id number] Name: SHAILA STOLL Davi Rep #: [id number] : 1950 From: Dago Leger MD Age/Sex: [...] radical prostatectomy in October 2014 for a Bellevue score 9 adenocarcinoma involving about 80% of [...] underwent left lower lobe sleeve lobectomy at [facility] by Dr. Alfonso. Final pathology revealed a [...] lower lobectomy and lymph node dissection at [facility] July 03, 2017 with R0 resection. Pathologic [...] Status: F Source: [place] CONTRAST 10:10 PM [facility] REPOSITORY [facility] Cardiovascular Services [address] [place] [address] Echo Complete W/ Contrast 06/18/18 0856 MR#: [id number] Acct: [id number] Name: SHAILA STOLL Rep #: [id number] : 1950 67 From: Rory Wall MD [...] DO Date Dictated: 06/18/18855 Date Transcribed: 06/18/182202 Copyright Clerk: Signed ABDOMEN/PELVIS WITH Observed: 06/18/2018 Status: F Source: [place] CONTRAST 9:47 AM [facility] REPOSITORY [facility] Imaging Services [address] [place] [address] Abdomen/Pelvis WITH Contrast MR#: [id number] Acct: [id number] Name: JERMANSHAILA Davi Rep #: [id number] : 1950 M 67 From: Cruzito Paz MD PCP: Katlyn Mullins DO Status: REG CLI Study: Abdomen/Pelvis WITH Contrast Date of Exam: 06/18/18 Exam# [id number] Ordering Dr: Dago Leger MD STUDY: CT [...] otherwise. Degenerative bony changes Electronically Signed: Collin Paz MD at 10:47 EST , Service support , CC: Dago Leger MD; Katlyn Mullins DO Copyright Clerk: Signed CHEST WITH CONTRAST Observed: 06/18/2018 Status: F Source: [place] 9:47 AM [facility] REPOSITORY [facility] Imaging Services [facility] [place] [address] Chest WITH Contrast MR#: [id number] Acct: [id number] Name: SHAILA STOLL Rep #: [id number] : 1950 67 From: Cruzito Paz MD PCP: Katlyn Mullins DO Status: REG CLI Study: Chest WITH Contrast Date of Exam: 06/18/18 Exam# [id number] Ordering Dr: Dago Leger MD STUDY: CT [...] CC: Dago Leger MD; Katlyn Mullins DO Copyright Clerk: Signed IRON+IRON BINDING Collected: 06/15/2018 Status: F Source: [place] CAPACITY 11:43 AM [facility] REPOSITORY Order Comment: Reason for Laboratory Test . TYPE CODE TESTS RESULT OUT OF RANGE REFERENCE UNITS LAB L503.6075 250-450 ug/dL TIBC Normal 256 LAB L503.6150 65-175 ug/dL Low IRON 38 LAB L503.6250 15.0-55.0 % Low IRON SATURATION 14.8 Performed By: #### L503.6030, L503.6550 #### [facility] [address] [place], [address] FERRITIN Collected: 06/15/2018 Status: F Source: [place] 11:43 AM [facility] REPOSITORY Order Comment: Reason for Laboratory Test . TYPE CODE TESTS RESULT OUT OF REFERENCE UNITS RANGE LAB L503.6550 26-388 ng/mL High FERRITIN 503 Performed By: #### L503.6030, L503.6550 #### [facility] [address] [place], [address] VITAMIN B12 Collected: 06/15/2018 Status: F Source: [place] 11:43 AM [facility] REPOSITORY Order Comment: Reason for Laboratory Test . TYPE CODE TESTS RESULT OUT OF REFERENCE UNITS RANGE LAB L503.0105 211-911 pg/mL High Vitamin B12 > 2000 Performed By: #### L503.0105 #### [facility] [address] [place], [address] ONCOLOGY VISIT REPORT Observed: 06/15/2018 Status: F Source: [place] 11:35 AM [facility] REPOSITORY [facility] [address] [place] [address] OFFICE VISIT Date of Service: 06/15/18 1103 MR#: [id number] Acct: [id number] Name: SHAILA STOLL Rep #: [id number] : 1950 From: Dago Leger MD Age/Sex: [...] underwent left lower lobe sleeve lobectomy at [facility] by Dr. Alfonso. Final pathology revealed a [...] lower lobectomy and lymph node dissection at [facility] July 03, 2017 with R0 resection. Pathologic [...] Dago Leger MD> Date Dago Leger MD [facility] Signature: Date (if applicable) CC: Tavon Mullen MD; Fernando Mock DO PULMONARY FUNCTION Observed: 06/10/2018 Status: F Source: [place] TEST 1:04 PM [facility] REPOSITORY [facility] Pulmonary Services/Neurology [address] [place] [address] MR#: [id number] Acct: [id number] Name: SHAILA STOLL Rep #: [id number] : 1950 67 From: David Mock DO Referring Dr: Tavon Mullen MD Status: REG CLI Ordering Dr: Date: Location: [facility] Sex: M C INTRODUCTION: The patient [...] Date Dictated: 06/10/18 130 Date Transcribed: 06/10/181301 Copyright Clerk: JOSI Signed PULMONARY VISIT REPORT Observed: 06/08/2018 Status: F Source: [place] 8:11 AM [facility] REPOSITORY [facility] [address] [place] [address] OFFICE VISIT Date of Service: 06/08/18 MR#: [id number] Acct: [id number] Name: SHAILA STOLL Rep #: [id number] : 1950 Provider: Tavon Mullen MD Age/Sex: 67/M Location[place] [facility] Status: Signed Assessment AND Plan Problems 1. 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, [address] COMPREHENSIVE METABOLIC Collected: 06/08/2018 Status: F Source: [facility] 8:11 AM [facility] REPOSITORY Order Comment: Reason for Laboratory Test [...] GAP 8 Performed By: #### L500.4050 #### [facility] [address] [place], [place], [address] THYROID STIM HORMONE Collected: 06/08/2018 Status: F Source: [place] (TSH) 8:03 AM [facility] REPOSITORY TYPE CODE TESTS RESULT OUT OF RANGE REFERENCE UNITS LAB L501.9520 0.358-3.74 uIU/mL Normal TSH 3.35 Performed By: #### L501.9520 #### [facility] [address] [place], [address] PSA,TOTAL - ANNUAL Collected: 05/18/2018 Status: F Source: [place] SCREEN 9:54 AM [facility] REPOSITORY TYPE CODE TESTS RESULT OUT OF RANGE REFERENCE UNITS LAB L501.9910 0.00-4.00 ng/mL Normal PSA,TOT < 0.01 SCREEN Result Comment: This test was performed using the TPSA assay method for the Common [employer]ensing chemistry system. Values obtained with different assay methods cannot be used interchangably. When changing PSA assays in the course of monitoring a patient, additional sequential testing should be carried out to confirm baseline values. Performed By: #### L501.9910 #### [facility] [address] [place], [address] PULMONARY VISIT REPORT Observed: 04/28/2018 Status: F Source: [place] 12:03 PM [facility] REPOSITORY [facility] 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 Cutter Machine Required: No Allergies morphine Adverse Reaction (Intermediate, [...] #30 ml 04/28/18 [Rx Confirmed 04/28/18] FOR[facility] Medical History Viral pharyngitis (Acute) Nasopharyngitis (Acute) [...] DO CONSULTATION Observed: 04/08/2018 Status: F Source: [place] 5:45 PM [facility] REPOSITORY [facility] Medical Records Department [address] [place] [address] Consultation 04/01/18 1419 MR#: [id number] Acct: [id number] Name: STOLLSHAILA Rep #: [id number] : 1950 67 From: Andreea Rivera MD PCP: Fernando Mock DO Status: DIS SHYLA Y Location: [place] [address] Problem List (1) CVA (cerebral vascular accident) [...] MCA punctate embolic strokes and also bilateral [facility] [employer] distribution/ b/l occipital punctate embolic stroke. 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 At present patient denies any MONREAL, visual disturbances, speech disturbances, sensory loss or focal motor weakness. LDL on admission was 143, TTE showed EF 65%, mildly enlarged LA, no PFO. Lives with his spouse, denies any falls, does not use cane or walker to ambulate, and does not need assistance for his ADLs. Impression B/L MCA/[facility] [employer] punctate embolic stroke-probably secondary to underlying malignancy [...] hypercoagulable panel -Recommend ophthalmology consult as outpatient. -jail Goal BP < 130/80 mmHg and Goal [...] patient. Code Visit Inpatient E AND M: 44713 Init Hosp L3 04/08/18 1745 <Electronically signed by Andreea Rivera MD> Date Andreea Rivera MD Cosigner Signature (if applicable): Date CC: Tyler Rivera MD; DO Karine Chavez 12 LEAD ELECTROCARDIOGRAM Observed: 04/06/2018 Status: F Source: [place] 1:56 PM [facility] REPOSITORY [facility] Cardiovascular Services [address] [place] [address] 12 Lead EKG 03/31/18 1856 MR#: [id number] Acct: [id number] Name: SHAILA STOLL Rep #: [id number] : 1950 67 From: Fritz Zamora MD Attending Dr: Jeffery Dominguez M.D. Status: DIS SHYLA Ordering Dr: Trung Reed MD Date: 03/31/18 Location: [facility] Sex: M C Admitted: 03/31/18 Test Reason [...] IS UNCONFIRMED Confirmed by FRITZ ZAMORA ([id number]), slot editor SUMA VANEGAS ([id number]) on 04/06/2018 1:55:53 PM Referred By: DR REED Confirmed By:FRITZ ZAMORA 04/06/18 1356 Date Fritz Zamora MD CC: Fernando Mock DO; Jeffery Dominguez M.D.; Trung Reed MD Signed CAROTID DUPLEX Observed: 04/02/2018 Status: F Source: [place] ULTRASOUND 2:43 PM [facility] REPOSITORY [facility] Cardiovascular Services [address] [place] [address] Carotid Duplex Ultrasound 04/01/18 0910 MR#: [id number] Acct: [id number] Name: SHAILA STOLL Rep #: [id number] : 1950 67 From: Andreea Rivera MD Attending Dr: Jeffery Dominguez M.D. Status: DIS SYHLA Ordering Dr: Jeffery Dominguez MD Date: 04/01/18 Location: [facility] Sex: M C Admitted: 03/31/18 Reason For [...] Dictated: 04/01/18 0910 Date Transcribed: 04/02/18 144 Copyright Clerk: Signed 12 LEAD ELECTROCARDIOGRAM Observed: 04/02/2018 Status: F Source: [place] 1:35 PM [facility] REPOSITORY [facility] Cardiovascular Services [address] [place] [address] 12 Lead EKG 04/01/18 0540 MR#: [id number] Acct: [id number] Name: SHAILA STOLL Rep #: [id number] : 1950 67 From: Kash Rollins MD Attending Dr: Jeffery Dominguez M.D. Status: DIS SHYLA Ordering Dr: Trung Reed MD Date: 04/01/18 Location: [facility] Sex: M C Admitted: 03/31/18 Test Reason : AM EKG Blood Pressure : / mmHG Vent. Rate : 066 BPM Atrial Rate : 066 BPM P-R Int : 142 ms QRS Dur : 078 ms QT Int : 418 ms P-R-T Axes : 048 011 030 degrees QTc Int : 438 ms Normal sinus rhythm Normal ECG Confirmed by KAREN JOHNSON, KASH ([id number]), slot editor SUMA VANEGAS ([id number]) on 04/02/2018 1:35:13 PM Referred By: DR REED Confirmed By:KASH ROLLINS MD 04/02/18 1335 Date Kash Rollins MD CC: Fernando Mock DO; Jeffery Dominguez M.D.; Trung Reed MD Signed 12 LEAD ELECTROCARDIOGRAM Observed: 04/02/2018 Status: F Source: [place] 1:26 PM [facility] REPOSITORY [facility] Cardiovascular Services [address] [address] 12 Lead EKG 03/31/18 1456 MR#: [id number] Acct: [id number] Name: SHAILA STOLL Rep #: [id number] : 1950 67 From: Kash Rollins MD Attending Dr: Jeffery Dominguez M.D. Status: DIS SHYLA Ordering Dr: Hanna Vega MD Date: 03/31/18 Location: [facility] Sex: M C Admitted: 03/31/18 Test Reason [...] (limb leads) Confirmed by KAREN JOHNSON, KASH ([id number]), slot editor SUMA VANEGAS ([id number]) on 04/02/2018 1:25:42 PM Referred By: MAXIMO Confirmed By:KASH ROLLINS MD 04/02/18 1325 Date Kash Rollins MD CC: Hanna Vega MD; Fernando Mock DO; Jeffery Dominguez M.D. Signed DISCHARGE SUMMARY Observed: 04/01/2018 Status: F Source: [place] 4:56 PM [facility] REPOSITORY [facility] Medical Records Department [address] [place] [address] Discharge Summary 04/01/18 1651 MR#: [id number] Acct: [id number] Name: SHAILA STOLL Rep #: [id number] : 1950 67 From: Jeffery Dominguez MD PCP: Fernando Mock DO Status: ADM SHYLA Y Location: [place] [address] Discharge Date and Diagnosis - Problem List [...] left lower lobe lung (Chronic) [facility] 07/03/17 Hospital Course and Treatment Imaging Results: [...] applicable Code Visit Inpatient E AND M: 73585 Disch Hosp 04/01/18 1668 <Electronically signed by Jeffery Dominguez MD> Date Jeffery Dominguez MD Cosigner Signature (if applicable): Date CC: Fernando Mock DO; Jeffery Dominguez M.D. Signed DISCHARGE INSTRUCTION Observed: 04/01/2018 Status: F Source: [place] 4:50 PM [facility] REPOSITORY [facility] Medical Records Department [address] [place] [address] Instructions for Home/Discharge Instructions 04/01/18 1649 MR#: [id number] Acct: [id number] Name: SHAILA STOLL Rep #: [id number] : 1950 67 From: Jeffery Dominguez MD [...] HEMOGLOBIN A1C Collected: 04/01/2018 Status: F Source: [place] 3:05 PM [facility] REPOSITORY TYPE CODE TESTS RESULT OUT OF RANGE REFERENCE UNITS LAB L501.9985 4.2-6.3 % Normal HGB A1C 5.4 Performed By: #### L501.9985 #### [facility] [address] [place], [place], [address] PROTEIN C DEFIC. Collected: 04/01/2018 Status: F Source: [facility] 3:05 PM [facility] REPOSITORY TYPE CODE TESTS RESULT OUT OF RANGE REFERENCE UNITS LAB L3100.7310 60-150 % Normal PROTEIN C 86 Performed By: #### L3100.7275, L3100.7325, L3100.8410, L3300.0450, L3410.2000, L4500.2000, L4500.5000 #### [facility] (refer to report for specific site) refer to report for address and phone number PROTEIN C, FUNCTIONAL Collected: 04/01/2018 Status: F Source: [place] 3:05 PM [facility] REPOSITORY TYPE CODE TESTS RESULT OUT OF RANGE REFERENCE UNITS LAB L3100.7325 73-180 % Normal PROT C, 129 Funct Performed By: #### L3100.7275, L3100.7325, L3100.8410, L3300.0450, L3410.2000, L4500.2000, L4500.5000 #### [facility] (refer to report for specific site) refer to report for address and phone number ANTICARDIOLIPIN IGG, IGM Collected: 04/01/2018 Status: F Source: [place] 3:05 PM [facility] REPOSITORY TYPE CODE TESTS RESULT OUT OF [...] report for address and phone number AT [facility] / Collected: 04/01/2018 Status: F Source: [place] IMMUNOL 3:05 PM [facility] REPOSITORY TYPE CODE TESTS RESULT OUT OF [...] Status: F Source: [facility] 3:05 PM [facility] REPOSITORY TYPE CODE TESTS RESULT OUT OF [...] Status: F Source: [place] ANALYSIS 3:05 PM [facility] REPOSITORY TYPE CODE TESTS RESULT OUT OF RANGE REFERENCE UNITS LAB L4500.2100 . Normal FACTOR Comment II,DNA Result Comment: NEGATIVE No mutation identified. Comment: A point mutation ([id number]) in the factor II (prothrombin) gene is [...] mutations. This assay detects only the prothrombin J55948F mutation and does not measure genetic abnormalities [...] health care providers to discuss results at [phone] ([facility]). Methodology: DNA analysis of the Factor II gene was performed by PCR amplification followed by restriction analysis. The diagnostic sensitivity is >99% for both. All the tests must be combined with clinical information for the most accurate interpretation. Molecular-based testing is highly accurate, but as in any laboratory test, diagnostic errors may occur. This test was developed and its performance characteristics determined by [employer]. It has not been cleared or approved by the Food and Drug Administration. Poort SR, et al. Blood. 1996; 88:8808-1079. Claudette BHAKTA. Circulation. 2004; 110:e15-e18. Kera I, et al. Arterioscler Thromb Vasc Biol. 1999; 19:700-703. Felicia Can, PhD, FACMG Mary Quevedo, PhD, [facility]AC[facility] Karina JettS., PhD, [facility] Florence Diop, PhD, [facility]AC[facility] Juan Jose Simons, PhD, FAC Alistair Vazquez, PhD, FAC Performed at: [facility] Lab[address] [id number] Last Repairer Helper: Feliciano Miller MD, Phone: [phone] Performed at: [address] [id number] Last Repairer Helper: Josué cM PhD, Phone: [phone] Performed at: [facility] [address] [place], [place] [id number] Last Repairer Helper: Ayden Lua MD, Phone: [phone] Performed By: #### F7182.7629, W4081.7698, T0562.7997, L3176.2470, L3410.2000, L4500.2000, L4500.5000 #### [facility] (refer to report for specific site) refer to report for address and phone number SHAHRIAR ELDER Collected: 04/01/2018 Status: F Source: [place] MUTATION 3:05 PM [facility] REPOSITORY TYPE CODE TESTS RESULT OUT OF [...] the workup for venous thrombosis include the [id number] mutation in the factor II (prothrombin) gene, protein S and C deficiency, and antithrombin deficiencies. Anticardiolipin antibody and lupus anticoagulant analysis may be appropriate for certain patients, as well as homocysteine levels. Contact your local [facility] for information on how to order additional testing if desired. Genetic counselors are available for health care providers to discuss results at [phone] ([phone]). Methodology: DNA analysis of the Factor V [...] Diop, PhD, FAC Juan Jose Simons, PhD, [facility] Alistair Vazquez PhD, [facility] Performed By: #### L3100.7242, L3100.7397, L3100.8410, L3300.0450, L3410.2000, L4500.2000, L4500.5000 #### [facility] (refer to report for specific site) refer to report for address and phone number MISCELLANEOUS LAB Collected: 04/01/2018 Status: F Source: [place] PROCEDURE 3:05 PM [facility] REPOSITORY Order Comment: Comments: dRVVT (dilute Josh viper venom time) TYPE CODE TESTS RESULT OUT OF RANGE REFERENCE UNITS LAB L801.1541 Normal [facility] TEST Result Comment: TEST RESULT FLAG UNITS REF INTERVAL Dilute Josh's Viper Venom DRVVT Screen Seconds 76.7 High sec Reference Range: <= 47.0 DRVVT Confirm Seconds 58.6 sec DRVVT Ratio 1.2 ratio Reference Range: 0.8 - 1.2 TESTING PERFORMED AT [facility]. ORIGINAL REPORT ON FILE IN LAB CONTAINS ADDITIONAL TEST SITE INFORMATION. Performed By: #### L801.1541 #### [facility] [address] [place], [address] CTA NECK W/WO Observed: 04/01/2018 Status: F Source: [place] CONTRAST 2:19 PM [facility] REPOSITORY [facility] Imaging Services [address] [place] [address] CTA Neck W/WO Contrast MR#: [id number] Acct: [id number] Name: SHAILA STOLL Rep #: [id number] : 1950 M 67 From: Chacho Babcock MD PCP: Fernando Mock DO Status: ADM SHYLA Study: CTA Neck W/WO Contrast Date of Exam: 04/01/18 Exam# [id number] Ordering Dr: Andreea Rivera MD STUDY: CTA [...] Chacho Babcock MD at 15:54 EDT Tel [phone], Service support , CC: Tyler Rivera MD; Fernando Mock DO Copyright Clerk: Signed CTA HEAD W/WO Observed: 04/01/2018 Status: F Source: [place] CONTRAST 2:19 PM [facility] REPOSITORY [facility] Imaging Services [address] [place] [address] CTA Head W/WO Contrast MR#: [id number] Acct: [id number] Name: SHAILA STOLL Rep #: [id number] : 1950 M 67 From: Chacho Babcock MD PCP: Fernando Mock, DO Status: ADM SHYLA Study: CTA Head W/WO Contrast Date of Exam: 04/01/18 Exam# [id number] Ordering Dr: Andreea Rivera MD STUDY: CTA [...] There is no demonstrated aneurysm of the [place]. Partial opacification of the inferior aspect of the right maxillary sinus. CT/CTA Head W/WO Contrast IMPRESSION: Normal [place] without a demonstrated aneurysm or hemodynamically significant stenosis. Electronically Signed: Chacho Babcock MD at 15:55 EDT Tel [phone], Service support , CC: Tyler Rivera MD; Fernando Mock DO Copyright Clerk: Signed ECHOCARDIOGRAM COMPLETE Observed: 04/01/2018 Status: F Source: [place] 1:31 PM [facility] REPOSITORY [facility] Cardiovascular Services [address] [place] [address] Echo Complete 04/01/18 0928 MR#: [id number] Acct: [id number] Name: SHAILA STOLL Rep #: [id number] : 1950 67 From: Kash Rollins MD Attending Dr: Jeffery Domignuez M.D. Status: ADM SHYLA Ordering Dr: Trung Reed MD Date: 04/01/18 Location: [facility] Sex: M C Admitted: 03/31/18 Reason For [...] MD Date Dictated: 04/01/18927 Date Transcribed: 04/01/181329 Copyright Clerk: Signed BASIC METABOLIC Collected: 04/01/2018 Status: F Source: [place] PROFILE (BMP) 5:38 AM [facility] REPOSITORY TYPE CODE TESTS RESULT OUT OF [...] GAP 8 Performed By: #### L500.2500 #### [facility] [address] [place], [address] BRAIN WITHOUT Observed: 04/01/2018 Status: F Source: [place] CONTRAST 12:00 AM [facility] REPOSITORY [facility] Imaging Services [address] [place] [address] Brain without Contrast MR#: [id number] Acct: [id number] Name: JERMANSHAILA Davi Rep #: [id number] : 1950 M 67 From: Lee Chavez MD PCP: Fernando Mock DO Status: ADM SHYLA Study: Brain without Contrast Date of Exam: 04/01/18 Exam# [id number] Ordering Dr: Trung Reed MD ADDENDUM by [...] CC: Fernando Mock DO; Trung Reed MD Copyright Clerk: Signed EMERGENCY DEPARTMENT Observed: 03/31/2018 Status: F Source: [place] SUMMARY 9:46 PM [facility] REPOSITORY [facility] Medical Records Department [address] [place] [address] Emergency Department Summary 03/31/18 1537 MR#: [id number] Acct: [id number] Name: SHAILA STOLL Rep #: [id number] : 1950 67 From: Hanna Vega MD [...] PE, TIA This note was generated with [facility] dictation software. It may contain incorrect words, [...] your Primary Care Provider. Call [facility] ([phone]) or report to the closest Emergency Room. Call 911 if necessary. 03/31/182145 <Electronically signed by Hanna Vega MD> Date Hanna Vega MD Cosigner Signature (If Indicated): Date CC: Fernando Mock DO TROPONIN-I Collected: 03/31/2018 Status: F Source: [place] 9:22 PM [facility] REPOSITORY Order Comment: 'TROP' Serial specimen #1, #2 or #3: 3 TYPE CODE TESTS RESULT OUT OF RANGE REFERENCE UNITS LAB L501.4010 <0.045 ng/mL High 0.427 TROPONIN-I Result Comment: TROPONIN-I EXPECTED VALUES <0.045 Negative 0.045 - 0.590 Consistent with Cardiac Damage > OR = 0.600 Critical Value Not every elevated troponin is indicative of MA. These values should be used with clinical judgement in examining the patient's clinical picture for diagnosis. To establish a diagnosis of MA versus myocardial injury, there must be a demonstrated rise and/or fall in the troponin values, in addition to ischemic symptoms, EKG changes, new regional wall motion abnormality, and/or angiographical evidence. PLEASE NOTE: REFERENCE RANGES EDITED 17 Performed By: #### L501.4010 #### [facility] [address] [place], [address] LIPID PROFILE Collected: 03/31/2018 Status: F Source: [place] 6:50 PM [facility] REPOSITORY Order Comment: 'TROP' Serial specimen #1, [...] 51 Performed By: #### L500.4100, L501.4010 #### [facility] [address] [place], [address] TROPONIN-I Collected: 03/31/2018 Status: F Source: [place] 6:50 PM [facility] REPOSITORY Order Comment: 'TROP' Serial specimen #1, #2 or #3: 2 TYPE CODE TESTS RESULT OUT OF RANGE REFERENCE UNITS LAB L501.4010 <0.045 ng/mL High 0.436 TROPONIN-I Result Comment: TROPONIN-I EXPECTED VALUES <0.045 Negative 0.045 - 0.590 Consistent with Cardiac Damage > OR = 0.600 Critical Value Not every elevated troponin is indicative of MA. These values should be used with clinical judgement in examining the patient's clinical picture for diagnosis. To establish a diagnosis of MA versus myocardial injury, there must be a demonstrated rise and/or fall in the troponin values, in addition to ischemic symptoms, EKG changes, new regional wall motion abnormality, and/or angiographical evidence. PLEASE NOTE: REFERENCE RANGES EDITED 18 Performed By: #### L500.4100, L501.4010 #### [facility] [address] [place], [address] HISTORY AND PHYSICAL Observed: 03/31/2018 Status: F Source: [place] EXAM 6:28 PM [facility] REPOSITORY [facility] Medical Records Department [address] [place] [address] History and Physical 03/31/18 1731 MR#: [id number] Acct: [id number] Name: SHAILA STOLL Rep #: [id number] : 1950 67 From: Nakul MORALES PCP: Fernando Mock, DO Status: ADM SHYLA Y Location: [place] [address]-1 <Nakul Huston - Last Filed: 03/31/18 17:45> [...] left lower lobe lung (Chronic) [facility] 07/03/17 Medical History: Medical History (Last Reviewed 03/16/18 @ 11:12 by Zenobia Hillman) Viral pharyngitis (Acute) J02.9 Nasopharyngitis (Acute) J00 Limb weakness (Acute) R29.898 unusual tierdness (Acute) Sinusitis (Acute) J32.9 SOB (shortness of breath) (Acute) R06.02 Dyspnea (Acute) R06.00 Adenocarcinoma of lung (Chronic) C34.90 Hyperlipidemia (Chronic) E78.5 Hypertension (Chronic) I10 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) [facility] 07/03/17 LYMPH NODE REMOVAL-CHEST (Acute) [facility] 07/03/17 BLOOD CLOT LUNGS Deep vein blood [...] - - no difficulty with pronator drift, nursing manager strength, upper/lower ext strength, point to point, [...] left lower lobe lung (Chronic) [facility] 07/03/17 LYMPH NODE REMOVAL-CHEST (Acute) [facility] 07/03/17 BLOOD CLOT LUNGS Deep vein blood [...] Eliquis Code Visit Inpatient E AND M: 91906 Init Hosp L3 03/31/181747 <Electronically signed by Nakul MORALES> Date Nakul MORALES 03/31/181827<Electronically signed by Trung Reed MD> Cosigner Signature: Date (if applicable) Trung Reed MD CC: CARMEN Huston; Fernando Mock DO; Trung Reed MD Signed BRAIN/HEAD WITHOUT Observed: 03/31/2018 Status: F Source: [place] CONTRAST 3:15 PM [facility] REPOSITORY [facility] Imaging Services [address] [place] [address] Brain/Head without Contrast MR#: [id number] Acct: [id number] Name: SHAILA STOLL Rep #: [id number] : 1950 M 67 From: Chacho Babcock MD PCP: Fernando Mock DO Status: REG ER Study: Brain/Head without Contrast Date of Exam: 03/31/18 Exam# [id number] Ordering Dr: Hanna Vega MD STUDY: CT [...] Chacho Babcock MD at 16:02 EDT Tel [phone], Service support , CC: Hanna Vega MD; Fernando Mock DO Copyright Clerk: Signed CTA CHEST W/WO Observed: 03/31/2018 Status: F Source: [place] CONTRAST 3:15 PM [facility] REPOSITORY [facility] Imaging Services [address] [place] [address] CTA Chest W/WO Contrast MR#: [id number] Acct: [id number] Name: SHAILA STOLL Rep #: [id number] : 1950 67 From: Jonathan Prasad MD PCP: Fernando Mock DO Status: REG ER Study: CTA Chest W/WO Contrast Date of Exam: 03/31/18 Exam# [id number] Ordering Dr: Hanan Vega MD STUDY: CTA CHEST REASON FOR [...] CC: Hanna Vega MD; Fernando Mock DO Copyright Clerk: Signed BASIC METABOLIC Collected: 03/31/2018 Status: F Source: [place] PROFILE (BMP) 3:05 PM [facility] REPOSITORY TYPE CODE TESTS RESULT OUT OF [...] 9 Performed By: #### L500.2500, L501.4010 #### [facility] [address] [place], [place], [address] TROPONIN-I Collected: 03/31/2018 Status: F Source: [place] 3:05 PM [facility] REPOSITORY TYPE CODE TESTS RESULT OUT OF RANGE REFERENCE UNITS LAB L501.4010 <0.045 ng/mL High 0.365 TROPONIN-I Result Comment: TROPONIN-I EXPECTED VALUES <0.045 Negative 0.045 - 0.590 Consistent with Cardiac Damage > OR = 0.600 Critical Value Not every elevated troponin is indicative of MA. These values should be used with clinical judgement in examining the patient's clinical picture for diagnosis. To establish a diagnosis of MA versus myocardial injury, there must be a demonstrated rise and/or fall in the troponin values, in addition to ischemic symptoms, EKG changes, new regional wall motion abnormality, and/or angiographical evidence. PLEASE NOTE: REFERENCE RANGES EDITED 17 Performed By: #### L500.2500, L501.4010 #### [facility] [address] [place], [address] CBC W/DIFF, AUTOMATED Collected: 03/31/2018 Status: F Source: [place] 3:05 PM [facility] REPOSITORY TYPE CODE TESTS RESULT OUT OF [...] Lymph 0.98 Performed By: #### L100.0100 #### [facility] [place], [address] BEDSIDE GLUCOSE Collected: 03/31/2018 Status: F Source: [place] 3:03 PM [facility] REPOSITORY TYPE CODE TESTS RESULT OUT OF REFERENCE UNITS RANGE LAB L501.080 70-110 mg/dL High BEDSIDE GLU 113 Result Comment: MANAGEMENT OF PATIENT CARE PER NURSING PROTOCOL Performed By: #### L501.080 #### [facility] Point of Care [address] [place] [address] ONCOLOGY VISIT REPORT Observed: 03/16/2018 Status: F Source: [place] 1:03 PM [facility] REPOSITORY [facility] [address] [place] [address] OFFICE VISIT Date of Service: 03/16/18 1124 MR#: [id number] Acct: [id number] Name: SHAILA STOLL Rep #: [id number] : 1950 From: Dago Leger MD Age/Sex: [...] underwent left lower lobe sleeve lobectomy at [facility] by Dr. Alfonso. Final pathology revealed a [...] lower lobectomy and lymph node dissection at [facility] July 03, 2017 with R0 resection. Pathologic [...] CREATININE FINGERSTICK Collected: 03/09/2018 Status: F Source: [place] 1:01 PM [facility] REPOSITORY TYPE CODE TESTS RESULT OUT OF RANGE REFERENCE UNITS LAB L9100.0210 0.70-1.30 mg/dL Normal CREATININE WB 0.9 LAB L9100.0220 >60 mL/min EGFR WB Normal > 60.0000 Performed By: #### L9100.0200 #### [facility] Point of Care [address] [facility] [place] [address] CHEST WITH CONTRAST Observed: 03/09/2018 Status: F Source: [place] 12:55 PM [facility] REPOSITORY [facility] Imaging Services [address] [place] [address] Chest WITH Contrast MR#: [id number] Acct: [id number] Name: SHAILA STOLL Rep #: [id number] : 1950 M 67 From: Lauro Wright MD PCP: Fernando Mock DO Status: REG CLI Study: Chest WITH Contrast Date of Exam: 03/09/18 Exam# [id number] Ordering Dr: Dago Leger MD STUDY: CT [...] CC: Fernando Mock DO; Dago Leger MD Copyright Clerk: Signed ABDOMEN/PELVIS WITH Observed: 03/09/2018 Status: F Source: [place] CONTRAST 12:55 PM [facility] REPOSITORY [facility] Imaging Services [address] [place] [address] Abdomen/Pelvis WITH Contrast MR#: [id number] Acct: [id number] Name: SHAILA STOLL Rep #: [id number] : 1950 M 67 From: Lauro Wright MD PCP: Fernando Mock DO Status: REG CLI Study: Abdomen/Pelvis WITH Contrast Date of Exam: 03/09/18 Exam# [id number] Ordering Dr: Dago Leger MD STUDY: CT [...] Service support , CC: Fernando Mock DO; Dgao Leger MD Copyright Clerk: Signed CBC W/DIFF, AUTOMATED Collected: 03/09/2018 Status: F Source: [place] 11:31 AM [facility] REPOSITORY Order Comment: Reason for Laboratory Test [...] Performed By: #### L100.0100, L500.4050, L501.9940 #### [facility] [address] [place], [place], [address] COMPREHENSIVE METABOLIC Collected: 03/09/2018 Status: F Source: [facility] 11:31 AM [facility] REPOSITORY Order Comment: Reason for Laboratory Test [...] Performed By: #### L100.0100, L500.4050, L501.9940 #### [facility] [address] [place], [address] PSA,TOTAL- DIAGNOSTIC Collected: 03/09/2018 Status: F Source: [place] 11:31 AM [facility] REPOSITORY Order Comment: Reason for Laboratory Test . TYPE CODE TESTS RESULT OUT OF RANGE REFERENCE UNITS LAB L501.9940 0.0-4.0 ng/mL PSA, Normal DIAGNOSTIC < 0.01 Result Comment: This test was performed using the TPSA assay method for the Common Sensing chemistry system. Values obtained with different assay methods cannot be used interchangably. When changing PSA assays in the course of monitoring a patient, additional sequential testing should be carried out to confirm baseline values. Performed By: #### L100.0100, L500.4050, L501.9940 #### [facility] [address] [place], [address] PULMONARY VISIT REPORT Observed: 02/18/2018 Status: F Source: [place] 10:16 AM [facility] REPOSITORY [facility] [address] [place] [address] OFFICE VISIT Date of Service: 02/18/18 MR#: [id number] Acct: [id number] Name: SHAILA STOLL Rep #: [id number] : 1950 Provider: Tavon Mullen MD Age/Sex: 67/M Location[facility] Status: Signed Assessment AND Plan Problems [...] Orders: Plan Detail Follow Up 6 Months ([facility]) HPI 3 M FU: Chief Complaint: Shortness [...] 90 Days #90 tab 01/14/18 [Rx] [facility]LY [facility], 1928–1983 Medical History Viral pharyngitis (Acute) Nasopharyngitis (Acute) [...] 02/08/2018 Status: F Source: [place] 10:17 AM [facility] REPOSITORY [facility] Pulmonary Services/Neurology [address] [place] [address] MR#: [id number] Acct: [id number] Name: SHAILA STOLL Rep #: [id number] : 1950 67 From: David Mock DO Referring Dr: Tavon Mullen MD Date: Ordering Dr: Sex: M C Location: PSN PSN 6 Minute Walk Test - 6 Minute Walk Test 6 Minute Walk Test: 6 Minute Walk Test PSN:6-Minute Walk Test Start: 02/05/18 10:33 Freq: Status: Active Protocol: [id number].6MINW Document 02/05/18 09:00 [facility] (Rec: 02/05/18 10:38 [facility] [id number]) 6 Minute Walk Test Date Performed 02/05/18 [...] study. 02/08/18 1017 <Electronically signed by David Mcok DO> Date David Mock DO CC: Date Dictated: 02/08/18 1016 Date Transcribed: 02/08/18 1016 Copyright Clerk: David Mock DO Signed PULMONARY FUNCTION Observed: 02/04/2018 Status: F Source: [place] TEST 11:40 AM [facility] REPOSITORY [facility] Pulmonary Services/Neurology [address] [address] MR#: [id number] Acct: [id number] Name: SHAILA STOLL Rep #: [id number] : 1950 67 From: David Mock DO Referring Dr: Tavon Mullen MD Status: REG CLI Ordering Dr: Date: Location: [facility] Sex: M C INTRODUCTION: The patient [...] Mock DO> Date David Mock DO CC: Tavno Mullen MD; Katlyn Mullins DO Date Dictated: 02/04/18 1137 Date Transcribed: 02/04/18 1137 Copyright Clerk: JOSI Signed ONCOLOGY VISIT REPORT Observed: 01/14/2018 Status: F Source: [place] 2:06 PM [facility] REPOSITORY [facility] [address] [place] [address] OFFICE VISIT Date of Service: 01/14/18 1019 MR#: [id number] Acct: [id number] Name: SHAILA STOLL Rep #: [id number] : 1950 From: Corina VALLES Age/Sex: 67/M [...] lower lobectomy and lymph node dissection at [facility] July 03, 2017 with R0 resection. Pathologic stage IIB(T2b, N1, M0). Completed adjuvant chemotherapy with carboplatin Alimta for 4 cycles December 2017. Reviewed treatment summary and survivorship care plan documentation. Copies of which will be provided to the patient and all members of his health care team. Engaged in lengthy conversation regarding potential [place] [facility]/late side effects associated with chemotherapy exposure, recommendations [...] Leger as previously planned. Corina Holbrook, MSN, PRODUCTION LINE OPERATOR-C, AOCNP Medications: Prescriptions This Visit Medication Instructions [...] Status: F Source: [place] SUMMARY 11:24 AM [facility] REPOSITORY [facility] [place] [address] End of Treatment Summary Date of Service: 01/13/18 1619 MR#: [id number] Acct: [id number] Name: SHAILA STOLL Rep #: [id number] : 1950 From: Corina Yusef SAMPLE GRINDER-C Age/Sex: 67/M Location: [facility] Status: Signed General Information Primary Care Provider:: Fernando Mock Medical Oncologist:: Dago Leger Other Providers:: Thoracic surgeon- Dr. Katlyn Alfonso. Freight Car Inspector- Dr. Mullen Treatment Summary Problem List: All [...] PSA,TOTAL- DIAGNOSTIC Collected: 01/14/2018 Status: F Source: [place] 10:05 AM [facility] REPOSITORY TYPE CODE TESTS RESULT OUT OF RANGE REFERENCE UNITS LAB L501.9940 0.0-4.0 ng/mL PSA, Normal DIAGNOSTIC < 0.01 Result Comment: This test was performed using the TPSA assay method for the Common Sensing chemistry system. Values obtained with different assay methods cannot be used interchangably. When changing PSA assays in the course of monitoring a patient, additional sequential testing should be carried out to confirm baseline values. Performed By: #### L501.9940 #### [facility] [address] [place], [place], [address] ONCOLOGY VISIT REPORT Observed: 12/15/2017 Status: F Source: [place] 9:36 AM [facility] REPOSITORY [facility] [place] [address] OFFICE VISIT Date of Service: 12/15/17 0845 MR#: [id number] Acct: [id number] Name: SHAILA STOLL Rep #: [id number] : 1950 From: Dago Leger MD Age/Sex: [...] underwent left lower lobe sleeve lobectomy at [facility] by Dr. Alfonso. Final pathology revealed a [...] lower lobectomy and lymph node dissection at [facility] July 03, 2017 with R0 resection. Pathologic [...] 12/15/2017 Status: F Source: [place] 8:34 AM [facility] REPOSITORY TYPE CODE TESTS RESULT OUT OF [...] 2+ Performed By: #### L100.0100, L500.4050 #### [facility] [address] [place], [place], [address] COMPREHENSIVE METABOLIC Collected: 12/15/2017 Status: F Source: [facility] 8:34 AM [facility] REPOSITORY TYPE CODE TESTS RESULT OUT OF [...] 11 Performed By: #### L100.0100, L500.4050 #### [facility] [address] [place], [address] PULMONARY VISIT REPORT Observed: 11/25/2017 Status: F Source: [place] 5:08 PM [facility] REPOSITORY [facility] [address] [place] [address] OFFICE VISIT Date of Service: 11/25/17 MR#: [id number] Acct: [id number] Name: SHAILA STOLL Rep #: [id number] : 1950 Provider: Tavon Mullen MD Age/Sex: 67/M Location[place] [facility] Status: Signed Assessment AND Plan 1. Adenocarcinoma [...] Detail Follow Up 3 Months ([facility]) HPI 3 M FU: Chief Complaint: Shortness [...] 11/24/2017 Status: F Source: [place] 10:08 AM [facility] REPOSITORY [facility] [address] [place] [address] [place] [address] OFFICE VISIT Date of Service: 11/24/17 0942 MR#: [id number] Acct: [id number] Name: SHAILA STOLL Rep #: [id number] : 1950 From: Dago Leger MD Age/Sex: [...] radical prostatectomy in October 2014 for a Bellevue score 9 adenocarcinoma involving about 80% of [...] underwent left lower lobe sleeve lobectomy at [facility] by Dr. Alfonso. Final pathology revealed a [...] lower lobectomy and lymph node dissection at [facility] July 03, 2017 with R0 resection. Pathologic [...] W/DIFF, AUTOMATED Collected: 11/24/2017 Status: C Source: [place] 9:33 AM [facility] REPOSITORY TYPE CODE TESTS RESULT OUT OF [...] December iris Performed By: #### L100.0100 #### [facility] [place], [address] COMPREHENSIVE METABOLIC Collected: 11/24/2017 Status: F Source: [facility] 9:33 AM [facility] REPOSITORY TYPE CODE TESTS RESULT OUT OF [...] GAP 11 Performed By: #### L500.4050 #### [facility] [address] [place], [place], [address] CBC W/DIFF, AUTOMATED Collected: 11/10/2017 Status: F Source: [place] 9:34 AM [facility] REPOSITORY Order Comment: Reason for Laboratory Test [...] LYMPHOPENIA NOTED. Performed By: #### L100.0100 #### [facility] [address] [facility] [place], [place], [address] ONCOLOGY VISIT REPORT Observed: 11/03/2017 Status: F Source: [place] 9:55 AM [facility] REPOSITORY [facility] [address] [place] [address] OFFICE VISIT Date of Service: 11/03/17 0950 MR#: [id number] Acct: [id number] Name: SHAILA STOLL Rep #: [id number] : 1950 From: Dago Leger MD Age/Sex: [...] radical prostatectomy in October 2014 for a Bellevue score 9 adenocarcinoma involving about 80% of [...] underwent left lower lobe sleeve lobectomy at [facility] by Dr. Alfonso. Final pathology revealed a [...] lower lobectomy and lymph node dissection at [facility] July 03, 2017 with R0 resection. Pathologic [...] Provider: Fernando Mock MD Referring Provider: 11/03/17 0995 <Electronically signed by Dago Leger MD> Date Dago Dennis Signature: Date (if applicable) CC: CBC W/DIFF, AUTOMATED Collected: 11/03/2017 Status: F Source: [place] 8:39 AM [facility] REPOSITORY TYPE CODE TESTS RESULT OUT OF [...] 0.69 Performed By: #### L100.0100, L500.4050 #### [facility] [address] [place], [address] COMPREHENSIVE METABOLIC Collected: 11/03/2017 Status: F Source: [facility] 8:38 AM [facility] REPOSITORY TYPE CODE TESTS RESULT OUT OF [...] 10 Performed By: #### L100.0100, L500.4050 #### [facility] [address] [place], [address] PSA,TOTAL- DIAGNOSTIC Collected: 10/13/2017 Status: F Source: [place] 11:31 AM [facility] REPOSITORY Order Comment: Reason for Laboratory Test PRE-CHEMO/ROUTINE Reason for Laboratory Test PRE-CHEMO TYPE CODE TESTS RESULT OUT OF RANGE REFERENCE UNITS LAB L501.9940 0.0-4.0 ng/mL PSA, Normal DIAGNOSTIC < 0.01 Result Comment: This test was performed using the TPSA assay method for the Common Sensing chemistry system. Values obtained with different assay methods cannot be used interchangably. When changing PSA assays in the course of monitoring a patient, additional sequential testing should be carried out to confirm baseline values. Performed By: #### L501.9940, L503.6030, L503.6550 #### [facility] [address] [place], [place], [address] IRON+IRON BINDING Collected: 10/13/2017 Status: F Source: [facility] 11:31 AM [facility] REPOSITORY Order Comment: Reason for Laboratory Test PRE-CHEMO/ROUTINE Reason for Laboratory Test PRE-CHEMO TYPE CODE TESTS RESULT OUT OF RANGE REFERENCE UNITS LAB L503.6075 250-450 ug/dL TIBC Normal 310 LAB L503.6150 65-175 ug/dL IRON Normal 135 LAB L503.6250 15.0-55.0 % IRON Normal SATURATION 43.5 Performed By: #### L501.9940, L503.6030, L503.6550 #### [facility] [address] [place], [address] FERRITIN Collected: 10/13/2017 Status: F Source: [place] 11:31 AM [facility] REPOSITORY Order Comment: Reason for Laboratory Test PRE-CHEMO/ROUTINE Reason for Laboratory Test PRE-CHEMO TYPE CODE TESTS RESULT OUT OF REFERENCE UNITS RANGE LAB L503.6550 26-388 ng/mL High FERRITIN 686 Performed By: #### L501.9940, L503.6030, L503.6550 #### [facility] [address] [place], [address] ONCOLOGY VISIT REPORT Observed: 10/13/2017 Status: F Source: [place] 11:15 AM [facility] REPOSITORY [facility] [address] [place] [address] OFFICE VISIT Date of Service: 10/13/17 1111 MR#: [id number] Acct: [id number] Name: SHAILA STOLL Rep #: [id number] : 1950 From: Dago Leger MD Age/Sex: [...] radical prostatectomy in October 2014 for a Bellevue score 9 adenocarcinoma involving about 80% of [...] underwent left lower lobe sleeve lobectomy at [facility] by Dr. Alfonso. Final pathology revealed a [...] lower lobectomy and lymph node dissection at [facility] July 03, 2017 with R0 resection. Pathologic [...] 10/13/2017 Status: F Source: [place] 10:01 AM [facility] REPOSITORY TYPE CODE TESTS RESULT OUT OF [...] Lymph 0.61 Performed By: #### L100.0100 #### [facility] [address] [place], [place], [address] COMPREHENSIVE METABOLIC Collected: 10/13/2017 Status: F Source: [facility] 10:01 AM [facility] REPOSITORY TYPE CODE TESTS RESULT OUT OF [...] GAP 9 Performed By: #### L500.4050 #### [facility] [address] [place], [address] 12 LEAD ELECTROCARDIOGRAM Observed: 10/06/2017 Status: F Source: [place] 4:22 PM [facility] REPOSITORY [facility] Cardiovascular Services [address] [place] [address] 12 Lead EKG 10/02/172014 MR#: [id number] Acct: [id number] Name: JERMANSHAILA Davi Rep #: [id number] : 1950 66 From: Rory Wall MD Attending Dr: Skye Haro Status: DIS IN Ordering Dr: Danyel Cai MD Date: 10/02/17 Location: [facility] Sex: M C Admitted: 10/02/17 Test Reason : Blood Pressure : / mmHG Vent. Rate : 098 BPM Atrial Rate : 098 BPM P-R Int : 120 ms QRS Dur : 082 ms QT Int : 360 ms P-R-T Axes : 054 042 035 degrees QTc Int : 459 ms Normal sinus rhythm Normal ECG Confirmed by RORY WALL MD ([id number]), slot editor SUMA VANEGAS ([id number]) on 10/06/2017 4:22:26 PM Referred By: Tavon Mullen Confirmed By:RORY WALL MD 10/06/17 1622 Date Rory Wall MD CC: Danyel Cai MD; Katlyn Mullins DO Signed ONCOLOGY VISIT REPORT Observed: 10/06/2017 Status: F Source: [place] 12:01 PM [facility] REPOSITORY [facility] [address] [place] [address] OFFICE VISIT Date of Service: 10/06/17 1056 MR#: [id number] Acct: [id number] Name: SHAILA STOLL Rep #: [id number] : 1950 From: Dago Leger MD Age/Sex: [...] radical prostatectomy in October 2014 for a Bellevue score 9 adenocarcinoma involving about 80% of [...] underwent left lower lobe sleeve lobectomy at [facility] by Dr. Alfonso. Final pathology revealed a [...] lower lobectomy and lymph node dissection at [facility] July 03, 2017 with R0 resection. Pathologic [...] DUPLEX LOWER Observed: 10/05/2017 Status: F Source: [place] EXTREMITY 6:04 AM [facility] REPOSITORY [facility] Cardiovascular Services [address] [place] [address] Venous Duplex - Michele Extrem 10/03/17 1107 MR#: [id number] Acct: [id number] Name: SHAILA STOLL Rep #: [id number] : 1950 66 From: Katlyn Luna MD Attending Dr: Skye Haro Status: DIS IN Ordering Dr: Skye Haro Date: 10/03/17 Location: [facility] Sex: M C Admitted: 10/02/17 Reason For [...] ankle to the knee. Ordering Physician: Skye aHro Performed By: Hamilton Anne RVT 10/05/17 0604 Date Katlyn Luna MD CC: Skye Haro; Katlyn Mullins DO Date Dictated: 10/03/17 1107 Date Transcribed: 10/05/17 0604 Copyright Clerk: Signed DISCHARGE SUMMARY Observed: 10/04/2017 Status: F Source: CONY 10:45 AM [facility] REPOSITORY [facility] Medical Records Department [address] [place] [address] Discharge Summary 10/04/17 1037 MR#: [id number] Acct: [id number] Name: SHAILA STOLL Rep #: [id number] : 1950 66 From: Skye Haro PCP: Katlyn Mullins DO Status: ADM IN Y Location: [place] [address] Discharge Date and Diagnosis - Problem List [...] of left lower lobe lung (Chronic) [facility] 07/03/17 Prostate cancer (Chronic) surgery , R.T. [...] LLL lobectomy and lymph node dissection [facility] July 03, 2017 with R0 resection who presented to the [facility] ED on 10/03/17 with dyspnea x [...] contacted their office and patient evaluated per SAMPLE GRINDER with plan for follow-up as previously arranged. [...] When: Follow-up within 1-2 weeks, may see SAMPLE GRINDER to discuss admission. Please Follow Up With: [...] eliquis. Code Visit Inpatient E AND M: 70209 Disch Hosp 10/04/17 1045 <Electronically signed by Skye Haro > Date Skye Haro Cosigner Signature (if applicable): Date CC: Skye Haro; Katlyn Mullins DO Signed DISCHARGE INSTRUCTION Observed: 10/04/2017 Status: F Source: CONY 10:36 AM [facility] REPOSITORY [facility] Medical Records Department [address] [place] [address] Instructions for Home/Discharge Instructions 10/04/17 1024 MR#: [id number] Acct: [id number] Name: SHAILA STOLL Rep #: [id number] : 1950 66 From: Skye Haro PCP: [...] When: Follow-up within 1-2 weeks, may see SAMPLE GRINDER to discuss admission. Please Follow Up With: Fritz Valencia MD When: Contact office to discuss re-arranging port placement date. Proposed Discharge Date: 10/04/17 10/04/17 1036 <Electronically signed by Skye Haro > Date Skye Haro CC: Dago Leger MD; Katlyn Mullins DO CONSULTATION Observed: 10/04/2017 Status: F Source: CONY 8:53 AM [facility] REPOSITORY [facility] Medical Records Department [address] [place] [address] Consultation 10/04/17 0733 MR#: [id number] Acct: [id number] Name: SHAILA STOLL Rep #: [id number] : 1950 66 From: Corina VALLES PCP: Katlyn Mullins DO Status: ADM IN Y [facility] Referring Physician: Skye Haro Date of [...] underwent left lower lobe sleeve lobectomy at [facility] by Dr. Alfonso. Final pathology revealed a [...] by acute dyspnea which prompted presentation to [facility] 10/03/17. Found to have bilateral PEs and bilateral LE DVTs. Now on Lovenox. His past medical history is notable for prostate cancer presenting with an elevated PSA of 42. Patient is status post radical prostatectomy in October 2014 for a Bellevue score 9 adenocarcinoma involving about 80% of [...] 10/03/17 00:07 ARN (Rec: 10/03/17 00:29 ARN [id number]) BMI Required to complete PMH What is [...] post LLL lobectomy and lymph node dissection [facility] July 03, 2017 with R0 resection who presents to the [facility] ED on 10/03/17 with dyspnea x 2 weeks. 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 Will evaluate in clinic [...] management to primary team Corina Holbrook, MSN, PRODUCTION LINE OPERATOR-C, AOCNP Medications: Prescriptions This Visit Medication Instructions [...] 10/04/2017 Status: F Source: CONY 5:47 AM [facility] REPOSITORY TYPE CODE TESTS RESULT OUT OF [...] Lymph 0.67 Performed By: #### L100.0100 #### [facility] [address] [place] [address]. [place], [address] BASIC METABOLIC Collected: 10/04/2017 Status: F Source: [place] PROFILE (BMP) 5:47 AM [facility] REPOSITORY TYPE CODE TESTS RESULT OUT OF [...] GAP 9 Performed By: #### L500.2500 #### [facility] [address] [place], [address] M R STAPH AUREUS Collected: 10/03/2017 Status: F Source: [place] DNA BY PCR 9:50 PM [facility] REPOSITORY TYPE CODE TESTS RESULT OUT OF RANGE REFERENCE UNITS LAB L8200.1100 Negative Normal MRSA Negative RESULT Performed By: #### L8200.1000 #### [facility] [place], [address] Observed: 10/03/2017 Status: F Source: [place] LEGIONELLA ANTIGEN 10:35 AM [facility] URINE REPOSITORY Legionella, UR Legionella Antigen result interpretation: Negative Presumptive negative for Legionella pneumophila serogroup 1 antigen in urine, suggesting no recent or current infection. Legionella Ag, Urine Negative (See interpretation below) Performed By: #### M300.4500 #### [facility] [place], [address] STREP Observed: 10/03/2017 Status: F Source: [place] PNEUMONIAE ANTIG(UR,CSF) 10:35 AM [facility] REPOSITORY S pneumo Ag URINE INTERPRETATION Negative Urine Presumptive negative for pneumococcal pneumonia, suggesting no current or recent pneumococcal infection. Infection due to S pneumoniae cannot be ruled out since the antigen present in the sample may be below the detection limit of the test. Strep pneumo Test Negative URINE (See interpretation below) Performed By: #### M300.4600 #### [facility] [address] [place], [address] ECHOCARDIOGRAM COMPLETE Observed: 10/03/2017 Status: F Source: CONY 10:22 AM [facility] REPOSITORY [facility] Cardiovascular Services [address] [place] [address] Echo Complete 10/03/17 0753 MR#: [id number] Acct: [id number] Name: SHAILA STOLL Rep #: [id number] : 1950 66 From: Trish Yates MD Attending Dr: Skye Haro Status: ADM IN Ordering Dr: Braulio De La Rosa MD Date: 10/03/17 Location: [facility] Sex: M C Admitted: 10/02/17 Reason For [...] Florence Garner, MARY, RVT 10/03/17 1022 Date Trish Yates MD CC: Braulio De La Rosa MD; Katlyn Mullins DO Date Dictated: 10/03/17 0753 Date Transcribed: 10/03/17 1022 Copyright Clerk: Signed CBC-COMPLETE BLOOD CNT Collected: 10/03/2017 Status: F Source: CONY NO DIFF 4:26 AM [facility] REPOSITORY TYPE CODE TESTS RESULT OUT OF [...] MPV 8.9 Performed By: #### L100.0500 #### [facility] [address] [place], [place], [address] PARTIAL THROMBOPLAST Collected: 10/03/2017 Status: F Source: CONY TIME 4:26 AM [facility] REPOSITORY TYPE CODE TESTS RESULT OUT OF REFERENCE UNITS RANGE LAB L300.4310 24.1-36.2 Seconds High PTT 63.1 Performed By: #### L300.4310 #### [facility] [address] [facility] [place], [address] BASIC METABOLIC Collected: 10/03/2017 Status: F Source: [place] PROFILE (BMP) 4:26 AM [facility] REPOSITORY TYPE CODE TESTS RESULT OUT OF [...] Normal 7 Performed By: #### L500.2500 #### [facility] [address] [place], [address] PHOSPHORUS Collected: 10/03/2017 Status: F Source: CONY 4:26 AM [facility] REPOSITORY TYPE CODE TESTS RESULT OUT OF RANGE REFERENCE UNITS LAB L501.2300 2.5-4.9 mg/dL Normal PHOS 3.4 Performed By: #### L501.2300, L501.5200 #### [facility] [address] [place], [address] MAGNESIUM Collected: 10/03/2017 Status: F Source: CONY 4:26 AM [facility] REPOSITORY TYPE CODE TESTS RESULT OUT OF RANGE REFERENCE UNITS LAB L501.5200 1.6-2.6 mg/dL Normal MG 2.3 Result Comment: Please note revised Magnesium reference range effective 2017. Performed By: #### L501.2300, L501.5200 #### [facility] [address] [place], [address] Observed: 10/03/2017 Status: F Source: [place] CULTURE, BLOOD (WB) 4:26 AM [facility] REPOSITORY Has pt arrived? Y BC No growth in 5 days. Performed By: #### M200.1000 #### [facility] [address] [place], [address] HISTORY AND PHYSICAL Observed: 10/03/2017 Status: F Source: CONY EXAM 3:44 AM [facility] REPOSITORY [facility] Medical Records Department [address] [place] [address] History and Physical 10/02/17 2327 MR#: [id number] Acct: [id number] Name: SHAILA STOLL Davi Rep #: [id number] : 1950 66 From: Braulio De La Rosa MD PCP: Katlyn Mullins DO Status: ADM IN Y Location: [place] [address] Problem List (1) Pulmonary embolism Status: Acute [...] lower lobectomy and lymph node dissection at [facility] July 03, 2017 with R0 resection admitted [...] 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) [facility] 07/03/17 Prostate cancer (Chronic) surgery , R.T. [...] lower lobectomy and lymph node dissection at [facility] July 03, 2017 with R0 resection admitted for SOB secondary to bilateral PE. 1) Acute bilateral PE: Will start heparin gtt. Will get ECHO and doppler in AM. Will get trops. No e/o heart strain on EKG. C/w oxygen. 2) Non-small adenocarcinoma cell lung cancer, stage IIB(T2b, N1, M0) status post left lower lobectomy and lymph node dissection at [facility] July 03, 2017 with R0 resection: Pt [...] MD Cosigner Signature: Date (if applicable) CC: Brauloi De La Rosa MD; Katlyn Mullins DO Signed EMERGENCY DEPARTMENT Observed: 10/02/2017 Status: F Source: [place] SUMMARY 10:48 PM [facility] REPOSITORY [facility] Medical Records Department [address] [place] [address] Emergency Department Summary 10/02/172006 MR#: [id number] Acct: [id number] Name: SHAILA STOLL Rep #: [id number] : 1950 66 From: Danyel Cai MD [...] pulmonary emboli This note was generated with [facility] dictation software. It may contain incorrect words, [...] your Primary Care Provider. Call [facility] ([phone]) or report to the closest Emergency Room. Call 911 if necessary. 10/02/17 4576 <Electronically signed by Danyel Cai MD> Date Danyel Cai MD Cosigner Signature (If Indicated): Date CC: Katlyn Mullins DO CBC W/DIFF, AUTOMATED Collected: 10/02/2017 Status: F Source: CONY 8:10 PM [facility] REPOSITORY TYPE CODE TESTS RESULT OUT OF [...] Lymph 0.93 Performed By: #### L100.0100 #### [facility] [address] [facility] [place], [place], [address] PROTHROMBIN TIME W/INR Collected: 10/02/2017 Status: F Source: [place] 8:10 PM [facility] REPOSITORY TYPE CODE TESTS RESULT OUT OF RANGE REFERENCE UNITS LAB L300.4150 11.7-14.9 SECONDS High PROTIME 15.4 LAB L300.4200 Normal INR 1.2 Performed By: #### L300.3900, L300.4310 #### [facility] [address] [place], [address] PARTIAL THROMBOPLAST Collected: 10/02/2017 Status: F Source: [place] TIME 8:10 PM [facility] REPOSITORY TYPE CODE TESTS RESULT OUT OF RANGE REFERENCE UNITS LAB L300.4310 24.1-36.2 Seconds Normal PTT 32.7 Performed By: #### L300.3900, L300.4310 #### [facility] [address] [place], [address] BASIC METABOLIC Collected: 10/02/2017 Status: F Source: [place]Y PROFILE (BMP) 8:10 PM [facility] REPOSITORY Order Comment: 'TROP' Serial specimen #1, [...] 9 Performed By: #### L500.2500, L501.4010 #### [facility] [address] [place], [place], [address] TROPONIN-I Collected: 10/02/2017 Status: F Source: CONY 8:10 PM [facility] REPOSITORY Order Comment: 'TROP' Serial specimen #1, #2, #3, or #4: 1 TYPE CODE TESTS RESULT OUT OF RANGE REFERENCE UNITS LAB L501.4010 <0.06 ng/mL Normal 0.02 TROPONIN-I Result Comment: TROPONIN-I EXPECTED VALUES <0.05 NEGATIVE 0.06 - 0.59 AT RISK OF MA > OR = 0.60 SUGGEST MA Performed By: #### L500.2500, L501.4010 #### [facility] [address] [place], [address] BNP,B-TYPE NATRIURETIC Collected: 10/02/2017 Status: F Source: CONY PEPTIDE 8:10 PM [facility] REPOSITORY TYPE CODE TESTS RESULT OUT OF RANGE REFERENCE UNITS LAB L503.6620 0-100 pg/mL High B-TYPE 114.6 ALYSA PEP Performed By: #### L503.6620 #### [facility] [address] [place], [address] CHEST 1 VIEW Observed: 10/02/2017 Status: F Source: CONY (PORTABLE) 8:07 PM [facility] REPOSITORY [facility] Imaging Services [address] [place] [address] Chest 1 View (Portable) MR#: [id number] Acct: [id number] Name: SHAILA STOLL Rep #: [id number] : 1950 M 66 From: Antonio Hamlin MD PCP: Katlyn Mullins DO Status: REG ER Study: Chest 1 View (Portable) Date of Exam: 10/02/17 Exam# [id number] Ordering Dr: Danyel Cai MD STUDY: X-RAY [...] CC: Danyel Cai MD; Katlyn Mullins DO Copyright Clerk: Signed CTA CHEST W/WO Observed: 10/02/2017 Status: F Source: CONY CONTRAST 8:07 PM [facility] REPOSITORY [facility] Imaging Services [address] [place] [address] CTA Chest W/WO Contrast MR#: [id number] Acct: [id number] Name: SHAILA STOLL Rep #: [id number] : 1950 M 66 From: Antonio Hamlin MD PCP: Katlyn Mullins DO Status: REG ER Study: CTA Chest W/WO Contrast Date of Exam: 10/02/17 Exam# [id number] Ordering Dr: Danyel Cai MD STUDY: CTA [...] CC: Danyel Cai MD; Katlyn Mullins DO Copyright Clerk: Signed PULMONARY VISIT REPORT Observed: 09/24/2017 Status: F Source: [place] 3:26 PM [facility] REPOSITORY [facility] [address] [place] [address] OFFICE VISIT Date of Service: 09/24/17 MR#: [id number] Acct: [id number] Name: SHAILA STOLL Rep #: [id number] : 1950 Provider: Miguelina Saenz Age/Sex: 66/M Location[facility] Status: Signed Assessment AND Plan 1. Shortness [...] Q4H with spacer Follow Up 2 Weeks ([facility]) HPI Shortness of breath: Chief Complaint: cough [...] his weight. He has not tried any dvhz-jbl-gmkylph medications for this shortness of breath. See [...] VISIT REPORT Observed: 09/21/2017 Status: F Source: [place] 10:00 AM [facility] [address] [facility] [address] [place] [address] OFFICE VISIT Date of Service: 09/16/17 MR#: [id number] Acct: [id number] Name: SHAILA STOLL Rep #: [id number] : 1950 Provider: Fritz Valencia MD Age/Sex: 66/M Location: [facility] Status: Signed Intake Vital Signs09/16/17 Height 5 ft 10 in 09/16/17 Weight: 193 lb Intake Visit Reasons: NEEDS PORT Chief Complaint: Chemotherapy Education-Carboplatin/Alimta/Neulasta Nougat Cutter Machine Required: No Is patient in pain?: No [...] exercise seatbelt use: always HPI HPI HPI: SHAILA STOLL, is a 66 M who presents [...] person, oriented to place, oriented to time [facility] Head: normocephalic, atraumatic Ears: external ears [...] 09/15/2017 Status: F Source: CONY 9:39 AM [facility] REPOSITORY TYPE CODE TESTS RESULT OUT OF [...] Lymph 0.71 Performed By: #### L100.0100 #### [facility] [address] [place], [place], [address] COMPREHENSIVE METABOLIC Collected: 09/15/2017 Status: F Source: CONY DUTTON 9:39 AM [facility] REPOSITORY Order Comment: Reason for Laboratory Test [...] 8 Performed By: #### L500.4050, L501.9940 #### [facility] [address] [place], [address] PSA,TOTAL- DIAGNOSTIC Collected: 09/15/2017 Status: F Source: [facility] 9:39 [facility] Order Comment: Reason for Laboratory Test PRE-CHEMO TYPE CODE TESTS RESULT OUT OF RANGE REFERENCE UNITS LAB L501.9940 0.0-4.0 ng/mL PSA, Normal DIAGNOSTIC < 0.01 Result Comment: This test was performed using the TPSA assay method for the Common [employer] chemistry system. Values obtained with different assay methods cannot be used interchangably. When changing PSA assays in the course of monitoring a patient, additional sequential testing should be carried out to confirm baseline values. Performed By: #### L500.4050, L501.9940 #### [facility] [address] [place], [address] PULMONARY VISIT REPORT Observed: 09/02/2017 Status: F Source: [place] 9:55 AM [facility] REPOSITORY [facility] [place] [address] [place] [address] OFFICE VISIT Date of Service: 09/02/17 MR#: [id number] Acct: [id number] Name: SHAILA STOLL Rep #: [id number] : 1950 Provider: Tavon Mullen MD Age/Sex: 66/M [place] [facility] Status: Signed Assessment AND Plan 1. [...] Detail Follow Up 3 Months ([facility]) HPI 3 M FU: Chief Complaint: Shortness of breath on exertion Details: Patient is a 66-year-old male, currently in the care of Dr. Mock, who presents for evaluation secondary to shortness of breath. Since last visit, patient has gone to [facility] for a sleeve lobectomy of the left [...] PO DAILY 06/02/17 [History Confirmed 08/27/17] FOR[facility]LY [facility], [facility] Medical History Viral pharyngitis (Acute) Nasopharyngitis (Acute) [...] 07/03/2018 Drug morphine/F00 MAKES HIS MO [facility] Allergy/4160 1564395(RXNO NAUSEATED AND Hospital 95472(SNOMED RM) SICK Repository CT) ENCOUNTERS ENCOUNTERS ADMIT/DISCHARGE ACCOUNT ADMITTING ENCOUNTER LOCATION SOURCE NUMBER CLASS 07/03/2018/ [id number] [facility], Inpatient [place] 8 5 [place] Encounter [facility] ing:PCURoom: Repository [id number]: 1 07/03/2018 [id number] [facility], Ambulatory BMSBuilding:B [place] 9 [place] [facility] Repository 07/03/2018 [id number] [facility], Ambulatory BMSBuilding:B [place] 1 [place] [facility] Repository 07/03/2018 [id number] [facility], Ambulatory BMSBuilding:B [place] 3 [place] [facility] Repository 07/03/2018 [id number] [facility], Ambulatory BMSBuilding:B [place] 5 [place] [facility] Repository 07/03/2018 [id number] [facility], Ambulatory BMSBuilding:B [place] 4 [place] [facility] Repository 07/03/2018 [id number] [facility], Ambulatory BMSBuilding:B [place] 8 [place] MS.[facility] Repository 07/03/2018 [id number] [place], Ambulatory BMSBuilding:B [place] 9 [place] [facility] Repository 07/03/2018 [id number] [place], Ambulatory BMSBuilding:B [place] 8 [place] [facility] Repository 07/03/2018 [id number] [facility], Ambulatory BMSBuilding:B [place] 4 [place] [facility] Repository 07/03/2018 [id number] [facility] BMSBuilding:B [place] 6 [place] [facility] Repository 07/03/2018 [id number] [place], Ambulatory BMSBuilding:B [place] 2 [place] MS.[facility] Repository 07/03/2018 [id number] [facility], Ambulatory BMSBuilding:B [place] 7 [place] [facility] Repository 07/03/2018 [id number] [facility], Ambulatory BMSBuilding:B [place] 0 [place] [facility] Repository 07/03/2018 [id number] Ambulatory BMSBuilding:W [place] 7 [facility] Repository 07/02/2018 [id number] Ambulatory [place] 9 [facility] ing:US Repository 07/01/2018 [id number] Ambulatory [facility] [place] 1 [facility] ing:PAVLAB Repository 07/01/2018 [id number] Ambulatory BMSBuilding:B [place] 3 [facility] Repository 07/01/2018/ [id number] Ambulatory BMSBuilding:B [place] 8 1 [facility] Repository 07/01/2018 [id number] [place]ulatory [place] 0 [facility] Hospital ing:OMD Repository 06/23/2018 [id number] Ambulatory BMSBuilding:B [place] 9 [facility] Repository 06/22/2018 [id number] Ambulatory BMSBuilding:W [place] 3 [facility] Hospital Repository 06/21/2018 [id number] Ambulatory [place] 7 [facility] ing:PSN Repository 06/21/2018/ [id number] Ambulatory BMSBuilding:B [place] 8 0 [facility] Repository 06/21/2018 [id number] Ambulatory BMSBuilding:B [place] 0 [facility] Hospital Repository 06/18/2018 [id number] Ambulatory BMSBuilding:B [place] 4 [facility] Repository 06/18/2018 [id number] Ambulatory [place] 2 [facility] Hospital ing:CVS Repository 06/15/2018 [id number] Ambulatory BMSBuilding:B [place] 0 [facility] Repository 06/15/2018 [id number] Ambulatory BMSBuilding:B [place] 3 [facility] Repository 06/10/2018 [id number] Ambulatory [place] 4 [facility] ing:PSN Repository 06/10/2018 [id number] Ambulatory BMSBuilding:W [place] 2 [facility] Repository 06/08/2018 [id number] [place]ulatory [place] 9 [facility] ing:PAVLAB Repository 06/08/2018/ [id number] Ambulatory BMSBuilding:B [place] 8 2 [facility] Repository 05/18/2018 [id number] [place]ulatory [place] 3 [facility] ing:LAB Repository 04/28/2018/ [id number] Ambulatory BMSBuilding:B [place] 8 1 [facility] Repository 04/01/2018/ [id number] Ambulatory BMSBuilding:W [place] 8 9 [facility] Repository 03/31/2018/ [id number] [facility], [place]ulatory [place] 8 0 Trung F [facility] ing:PCURoom: Repository [id number]: 1 03/31/2018 [id number] [place], Ambulatory BMSBuilding:B [place] 6 [place]ung F [facility] Repository 03/31/2018 [id number] [facility], Ambulatory BMSBuilding:B [place] 6 [place]ung F [facility] Repository 03/31/2018/ [id number] Ambulatory BMSBuilding:W [place] 8 8 [facility] Hospital Repository 03/16/2018 [id number] Ambulatory BMSBuilding:B [place] 7 [facility] Hospital Repository 03/09/2018 [id number] [place]ulatory [place] 0 [facility] ing:CT Repository 02/18/2018/ [id number] Ambulatory BMSBuilding:B [place] 8 4 [facility] Repository 02/08/2018 [id number] Ambulatory BMSBuilding:W [place] 7 [facility] Repository 02/05/2018 [id number] Ambulatory [place] 6 [facility] ing:PSN Repository 02/04/2018 [id number] Ambulatory [place] 1 [facility] ing:PSN Repository 02/04/2018 [id number] Ambulatory BMSBuilding:W [place] 8 [facility] Repository 01/14/2018 [id number] Ambulatory BMSBuilding:B [place] 2 [facility] Repository 01/14/2018 [id number] Ambulatory [place] 7 [facility] ing:PAVLAB Repository 12/15/2017 [id number] Ambulatory BMSBuilding:B [place] 8 [facility] Hospital Repository 11/25/2017/ [id number] Ambulatory BMSBuilding:B [place] 8 4 [place].[facility] Repository 11/24/2017 [id number] Ambulatory BMSBuilding:B [place] 8 [place].CF.[facility] Hospital Repository 11/03/2017 [id number] Ambulatory [place] 5 [facility] Hospital ing:SDC Repository 11/03/2017 [id number] Ambulatory BMSBuilding:B [place] 8 MS.[facility] Hospital Repository 10/13/2017 [id number] Ambulatory BMSBuilding:B [place] 8 [facility] Hospital Repository 10/06/2017 [id number] Ambulatory BMSBuilding:B [place] 6 [facility] Hospital Repository 10/02/2017/ [id number] Braulio De La Rosa Inpatient [place] [address] [facility] Hospital ing:PCURoom: Repository [id number]: 1 10/02/2017 [id number] Estrella, Braulio Ambulatory BMSBuilding:B [place] 3 [facility] Repository 10/02/2017 [id number] Estrella, Braulio Ambulatory BMSBuilding:B [place] 0 [facility] Repository 10/02/2017 [id number] Estrella, Braulio Ambulatory BMSBuilding:B [place] 9 MS.[facility] Repository 10/02/2017 [id number] Estrella, Braulio Ambulatory BMSBuilding:B [place] 5 [facility] Repository 10/02/2017/ [id number] Ambulatory BMSBuilding:W [place] 8 8 [facility] Repository 10/02/2017/ [id number] Ambulatory BMSBuilding:B [place] 8 3 MS.CF.[facility] Repository 09/24/2017/ [id number] Ambulatory BMSBuilding:B [place] 8 1 MS.[facility] Repository 09/16/2017/ [id number] Ambulatory BMSBuilding:B [place] 8 7 [facility] Repository 09/15/2017 [id number] Ambulatory BMSBuilding:B [place] 4 [facility] Repository 09/02/2017/ [id number] Ambulatory BMSBuilding:B [place] 8 9 [place].[facility] Repository 08/27/2017 [id number] Ambulatory BMS [place] 6 [facility] Repository 08/17/2017 [id number] Ambulatory BMSBuilding:B [place] 4 MS.[facility] Repository PAYERS PAYERS ENCOUNTER GUARANTOR PAYER SUBSCRIBER SOURCE 07/03/2018 SHAILA Tomlinson Primary SHAILA [id number] Insurance:MEDICARE SHAFFERDOB: [facility] [id number] Number[place] Repository [id number]: (636) [id number] [phone] () Date:2018-07-03 07/03/2018 Secondary SHAILA Donnelly Insurance:MEDICAL SHAFFERDOB: [facility] [id number] Hospital Number: Repository [id number] Date:8821-39-63SE [address] [place] [address]BM: 07/03/2018 Tertiary NOT GIVENUNK [place] Insurance:SELF PAY [facility] Number: Effective Repository Date:2018-07-03 07/03/2018 SHAILA A Primary SHAILA A [place] [id number] Insurance:MEDICARE SHAFFERDOB: [facility] [place] [facility] [id number] Number: Repository [id number]: 330 [id number] [phone] (HP) Date:2018-07-03 07/03/2018 Secondary SHAILA A [place] Insurance:MEDICAL SHAFFERDOB: [facility] [id number] Hospital Number: Repository [id number] Date:3237-65-29OG[address] [address]QU: 07/03/2018 Tertiary NOT GIVENUNK [place] Insurance:SELF PAY [facility] Number: Effective Repository Date:2018-07-03 07/03/2018 SHAILA A Primary SHAILA A [place] [id number] Insurance:MEDICARE SHAFFERDOB: [facility] [place] A [facility] [id number] [place] [address] Number: Repository [id number]: 330 [id number] [phone] (HP) Date:2018-07-03 07/03/2018 Secondary SHAILA A [place] Insurance:MEDICAL SHAFFERDOB: [facility] [id number] Hospital Number: Repository [id number] Date:9183-60-47PW[address] [address]NP: 07/03/2018 Tertiary NOT GIVENUNK [place] Insurance:SELF PAY [facility] Number: Effective Repository Date:2018-07-03 07/03/2018 SHAILA A Primary SHAILA A [place] [id number] Insurance:MEDICARE SHAFFERDOB: [facility] [place] [facility] [id number] [place] [address] Number: Repository [id number]: 330 [id number] [phone] (HP) Date:2018-07-03 07/03/2018 Secondary SHAILA A [place] Insurance:MEDICAL SHAFFERDOB: [facility] [id number] Hospital Number: Repository [id number] Date:6808-78-57PC[address] [address]WV: 07/03/2018 Tertiary NOT GIVENUNK [place] Insurance:SELF PAY [facility] Number: Effective Repository Date:2018-07-03 07/03/2018 SHAILA A Primary SHAILA A [place] [id number] Insurance:MEDICARE SHAFFERDOB: [facility] PART A [facility] [id number] Number: Repository 02302Wjy: 330 [id number] [phone] (HP) Date:2018-07-03 07/03/2018 Secondary SHAILA A [place] Insurance:MEDICAL SHAFFERDOB: [facility] [id number] Hospital Number: Repository [id number] Date:8942-82-96KK[address] [address]XX: 07/03/2018 Tertiary NOT GIVENUNK [place] Insurance:SELF PAY [facility] Number: Effective Repository Date:2018-07-03 07/03/2018 SHAILA A Primary SHAILA A [place] [id number] Insurance:MEDICARE SHAFFERDOB: [facility] PART A [facility] [id number] Number: Repository [id number]: 330 [id number] [phone] (HP) Date:2018-07-03 07/03/2018 Secondary SHAILA A [place] Insurance:MEDICAL SHAFFERDOB: [facility] [id number] Hospital Number: Repository [id number] Date:8590-58-68BH [address] [address]NB: 07/03/2018 Tertiary NOT GIVENUNK [place] Insurance:SELF PAY [facility] Number: Effective Repository Date:2018-07-03 07/03/2018 SHAILA A Primary SHAILA A [place] [id number] Insurance:MEDICARE SHAFFERDOB: [facility] PART A [facility] [id number] Number: Repository [id number]: 330 [id number] [phone] (HP) Date:2018-07-03 07/03/2018 Secondary SHAILA A [place] Insurance:MEDICAL SHAFFERDOB: [facility] [id number] Hospital Number: Repository [id number] Date:1835-06-35GH[address] [address]II: 07/03/2018 Tertiary NOT GIVENUNK [place] Insurance:SELF PAY [facility] Number: Effective Repository Date:2018-07-03 07/03/2018 SHAILA A Primary SHAILA A [place] [id number] Insurance:MEDICARE SHAFFERDOB: [facility] PART A [facility] [id number] [place] [address] Number: Repository [id number]: 330 [id number] [phone] () Date:2018-07-03 07/03/2018 Secondary SHAILA A [place] Insurance:MEDICAL SHAFFERDOB: [facility] [id number] Hospital Number: Repository [id number] Date:6795-35-51RO[address] [address]GB: 07/03/2018 Tertiary NOT GIVENUNK [place] Insurance:SELF PAY [facility] Number: Effective Repository Date:2018-07-03 07/03/2018 SHAILA A Primary SHAILA A [place] [id number] Insurance:MEDICARE SHAFFERDOB: [facility] PART A [facility] [id number] Number: Repository [id number]: 330 [id number] [phone] (HP) Date:2018-07-03 07/03/2018 Secondary SHAILA A [place] Insurance:MEDICAL SHAFFERDOB: [facility] [id number] Hospital Number: Repository [id number] Date:4964-11-58LV [facility] [address], [place] [address]MX: 07/03/2018 Tertiary NOT GIVENUNK [place] Insurance:SELF PAY [facility] Number: Effective Repository Date:2018-07-03 07/03/2018 SHAILA A Primary SHAILA A [place] [id number] Insurance:MEDICARE SHAFFERDOB: [facility] [place] [facility] [id number] Number: Repository [id number]: 330 [id number] [phone] () Date:2018-07-03 07/03/2018 Secondary SHAILA A [place] Insurance:MEDICAL SHAFFERDOB: [facility] [id number] Hospital Number: Repository [id number] Date:1163-84-89FX [address] [place] [address]JR: 07/03/2018 Tertiary NOT GIVENUNK [place] Insurance:SELF PAY [facility] Number: Effective Repository Date:2018-07-03 07/03/2018 SHAILA A Primary SHAILA A [place] [id number] Insurance:MEDICARE [facility] [id number] Number: Repository [id number]: 330 [id number] [phone] () Date:2018-07-03 07/03/2018 Secondary SHAILA A [place] Insurance:MEDICAL SHAFFERDOB: [facility] [id number] Hospital Number: Repository [id number] Date:8885-67-41DA[address] [address]WY: 07/03/2018 Tertiary NOT GIVENUNK [place] Insurance:SELF PAY [facility] Number: Effective Repository Date:2018-07-03 07/03/2018 SHAILA A Primary [place]A A [place] [id number] Insurance:MEDICARE [facility]FFERDOB: [facility] [id number] Number: Repository 33237Iwo: 330 [id number] [phone] (HP) Date:2018-07-03 07/03/2018 Secondary SHAILA A [place] Insurance:MEDICAL SHAFFERDOB: [facility] [id number] Hospital Number: Repository [id number] Date:2756-97-84AR [address] [address]TX: 07/03/2018 Tertiary NOT GIVENUNK [place] Insurance:SELF PAY [facility] Number: Effective Repository Date:2018-07-03 07/03/2018 SHAILA A Primary SHAILA A [place] [id number] Insurance:MEDICARE SHAFFERDOB: [facility] A [facility] [id number] Number: Repository [id number]: 330 [id number] [phone] () Date:2018-07-03 07/03/2018 Secondary SHAILA A [place] Insurance:MEDICAL SHAFFERDOB: [facility] [id number] Hospital Number: Repository [id number] Date:4284-13-53TA[address] [address]OZ: 07/03/2018 Tertiary NOT GIVENUNK [place] Insurance:SELF PAY [facility] Number: Effective Repository Date:2018-07-03 07/03/2018 SHAILA A Primary SHAILA A [place] [id number] Insurance:MEDICARE SHAFFERDOB: [facility] [id number] Number: Repository [id number]: 330 [id number] [phone] () Date:2018-07-03 07/03/2018 Secondary SHAILA A [place] Insurance:MEDICAL SHAFFERDOB: [facility] [id number] Hospital Number: Repository [id number] Date:1826-74-83SB [address] [address]RR: 07/03/2018 Tertiary NOT GIVENUNK [place] Insurance:SELF PAY [facility] Number: Effective Repository Date:2018-07-03 07/03/2018 SHAILA A Primary SHAILA A [place] [id number] Insurance:[facility]IC[facility]: [facility] PART A [facility] [id number], [place] Number: Repository [id number]: 330 [id number] [phone] (HP) Date:2018-07-03 07/03/2018 Secondary SHAILA A [place] Insurance:MEDICAL SHAFFERDOB: [facility] [id number] Hospital Number: Repository [id number] Date:5357-35-90MV [address] [address]WV: 07/03/2018 Tertiary NOT GIVENUNK [place] Insurance:SELF PAY [facility] Number: Effective Repository Date:2018-07-03 07/02/2018 SHAILA A STOLL Primary SHAILA A STOLL [place] [id number] Insurance:MEDICARE Jr.: [facility] PART A [facility] [id number], [place] Number: Repository [id number]: 330 [id number] [phone] (HP) Date:2018-06-22 07/02/2018 Secondary SHAILA A STOLL [place] Insurance:MEDICAL Jr.: [facility] [id number] Hospital Number: Repository [id number] Date:5404-36-89QJ [address] [address]GB: 07/02/2018 Tertiary NOT GIVENUNK [place] Insurance:SELF PAY [facility] Number: Effective Repository Date:2018-06-22 07/01/2018 SHAILA A Primary SHAILA A [place] [id number] Insurance:MEDICARE [facility]: [facility] PART A [facility] [id number], [place] Number: Repository [id number]: 330 [id number] [phone] (HP) Date:2018-07-01 07/01/2018 Secondary SHAILA A [place] Insurance:MEDICAL SHAFFERDOB: [facility] [id number] Hospital Number: Repository [id number] Date:0535-59-71BK [address] [place] [address]LT: 07/01/2018 Tertiary NOT GIVENUNK [place] Insurance:SELF PAY [facility] Number: Effective Repository Date:2018-07-01 07/01/2018 SHAILA A Primary SHAILA A [place] [id number] Insurance:MEDICARE [facility]FFERDOB: [facility] [id number], [place] Number: Repository [id number]: 330 [id number] [phone] (HP) Date:2017-06-02 07/01/2018 Secondary SHAILA A [place] Insurance:MEDICAL SHAFFERDOB: [facility] [id number] Hospital Number: Repository [id number] Date:0426-30-88SA [address] [address]GU: 07/01/2018 Tertiary NOT GIVENUNK [place] Insurance:SELF PAY [facility] Number: Effective Repository Date:2018-07-01 07/01/2018 SHAILA A Primary SHAILA A [place] [id number] Insurance:MEDICARE SHAFFERDOB: [facility] PART A [facility] [id number] [place] [address] Number: Repository [id number]: 330 [id number] [phone] (HP) Date:2018-07-01 07/01/2018 Secondary SHAILA A [place] Insurance:MEDICAL SHAFFERDOB: [facility] [id number] Hospital Number: Repository [id number] Date:1506-40-44TH[address] [address]OO: 07/01/2018 Tertiary NOT GIVENUNK [place] Insurance:SELF PAY [facility] Number: Effective Repository Date:2018-07-01 07/01/2018 SHAILA A Primary SHAILA A [place] [id number] Insurance:MEDICARE SHAFFERDOB: [facility] PART A [facility] [id number], [place] Number: Repository 14250Mbe: 330 [id number] [phone] (HP) Date:2017-06-02 07/01/2018 Secondary SHAILA A [place] Insurance:MEDICAL SHAFFERDOB: [facility] [id number] Hospital Number: Repository [id number] Date:7453-17-66ZY [address] [address]WL: 07/01/2018 Tertiary NOT GIVENUNK [place] Insurance:SELF PAY [facility] Number: Effective Repository Date:2017-06-02 06/23/2018 SHAILA A Primary SHAILA A [place] [id number] Insurance:MEDICARE SHAFFERDOB: [facility] [id number] Number: Repository [id number]: 330 [id number] [phone] () Date:2018-06-08 06/23/2018 Secondary SHAILA A [place] Insurance:MEDICAL SHAFFERDOB: [facility] [id number] Hospital Number: Repository [id number] Date:7029-25-44UD[address] [address]UB: 06/23/2018 Tertiary NOT GIVENUNK [place] Insurance:SELF PAY [facility] Number: Effective Repository Date:2018-06-16 06/22/2018 SHAILA A Primary SHAILA A [place] [id number] Insurance:MEDICARE SHAFFERDOB: [facility] [id number], [place] Number: Repository [id number]: 330 [id number] [phone] () Date:2018-06-21 06/22/2018 Secondary SHAILA A [place] Insurance:MEDICAL SHAFFERDOB: [facility] [id number] Hospital Number: Repository [id number] Date:4361-92-81CN[address] [address]KU: 06/22/2018 Tertiary NOT GIVENUNK [place] Insurance:SELF PAY [facility] Number: Effective Repository Date:2018-06-22 06/21/2018 SHAILA A Primary SHAILA A [place] [id number] Insurance:MEDICARE SHAFFERDOB: [facility] PART A [facility] [id number], [place] Number: Repository [address]Nxc: 330 [id number] [phone] (HP) Date:2018-06-21 06/21/2018 Secondary SHAILA A [place] Insurance:MEDICAL SHAFFERDOB: [facility] [id number] Hospital Number: Repository [id number] Date:6397-31-42XR[address] [address]XD: 06/21/2018 Tertiary NOT GIVENUNK [place] Insurance:SELF PAY [facility] Number: Effective Repository Date:2018-06-21 06/21/2018 SHAILA A Primary SHAILA A [place] [id number] Insurance:MEDICARE SHAFFERDOB: [facility] PART A [facility] [id number] Number: Repository [id number]: 330 [id number] [phone] (HP) Date:2018-06-21 06/21/2018 Secondary SHAILA A [place] Insurance:MEDICAL SHAFFERDOB: [facility] [id number] Hospital Number: Repository [id number] Date:6674-55-45FD[address] [address]BS: 06/21/2018 Tertiary NOT GIVENUNK [place] Insurance:SELF PAY [facility] Number: Effective Repository Date:2018-06-21 06/21/2018 SHAILA A Primary SHAILA A [place] [id number] Insurance:MEDICARE SHAFFERDOB: [facility] PART A [facility] [id number], [place] Number: Repository 16170Lvl: 330 [id number] [phone] (HP) Date:2017-06-02 06/21/2018 Secondary SHAILA A [place] Insurance:MEDICAL [facility]: [facility] [id number] Hospital Number: Repository [id number] Date:2286-19-83RH [facility] [address], [place] [address]BB: 06/21/2018 Tertiary NOT GIVENUNK [place] Insurance:SELF PAY [facility] Number: Effective Repository Date:2018-06-21 06/18/2018 SHAILA A Primary SHAILA A [place] [id number] Insurance:MEDICARE [facility]FFERDOB: [facility] [id number], [place] Number: Repository [id number]: 330 [id number] [phone] (HP) Date:2018-06-09 06/18/2018 Secondary SHAILA A [place] Insurance:MEDICAL SHAFFERDOB: [facility] [id number] Hospital Number: Repository [id number] Date:8524-75-58BU [address] [place] [address]BE: 06/18/2018 Tertiary NOT GIVENUNK [place] Insurance:SELF PAY [facility] Number: Effective Repository Date:2018-06-18 06/18/2018 SHAILA A Primary SHAILA A [place] [id number] Insurance:MEDICARE SHAFFERDOB: [facility] [id number], [place] Number: Repository [id number]: 330 [id number] [phone] () Date:2018-06-09 06/18/2018 Secondary SHAILA A [place] Insurance:MEDICAL SHAFFERDOB: [facility] [id number] Hospital Number: Repository [id number] Date:1791-74-01NQ[address] [address]CL: 06/18/2018 Tertiary NOT GIVENUNK [place] Insurance:SELF PAY [facility] Number: Effective Repository Date:2018-06-09 06/15/2018 SHAILA A Primary SHAILA A [place] [id number] Insurance:MEDICARE SHAFFERDOB: [facility] PART A [facility] [id number], [place] Number: Repository [id number]: 330 [id number] [phone] (HP) Date:2017-06-02 06/15/2018 Secondary SHAILA A [place] Insurance:MEDICAL SHAFFERDOB: [facility] 7903-03-39ZCE Hospital Number: Repository [id number] Date:1020-47-31UX [address] [place] [address]UR: 06/15/2018 Tertiary SHAILA A [place] Insurance:CARESOURCE SHAFFERDOB: [facility] [id number] Hospital Number: Repository [id number] Date:2403-53-04Hs [place] [address] [place] [address]IW: 06/15/2018 Tertiary NOT GIVENUNK [place] Insurance:SELF PAY [facility] Number: Effective Repository Date:2018-06-15 06/15/2018 SHAILA A Primary SHAILA A [place] [id number] Insurance:MEDICARE SHAFFERDOB: [facility] [id number] Number: Repository [address]487Jsz: 330 [id number] [phone] () Date:2017-06-02 06/15/2018 Secondary SHAILA A [place] Insurance:MEDICAL SHAFFERDOB: [facility] [id number] Hospital Number: Repository [id number] Date:9591-36-78CU[address] [address]HK: 06/15/2018 Tertiary NOT GIVENUNK [place] Insurance:SELF PAY [facility] Number: Effective Repository Date:2018-06-15 06/10/2018 SHAILA A Primary SHAILA A [place] [id number] Insurance:MEDICARE SHAFFERDOB: [facility] PART A [facility] [id number], [place] Number: Repository [id number]: 330 [id number] [phone] (HP) Date:2018-02-18 06/10/2018 Secondary SHAILA A [place] Insurance:MEDICAL SHAFFERDOB: [facility] [id number] Hospital Number: Repository [id number] Date:5532-79-46GS [address] [place] [address]XF: 06/10/2018 Tertiary NOT GIVENUNK [place] Insurance:SELF PAY [facility] Number: Effective Repository Date:2018-02-18 06/10/2018 SHAILA A Primary SHAILA A [place] [id number] Insurance:MEDICARE SHAFFERDOB: [facility] PART A [facility] [id number], [place] Number: Repository [id number]: (213) [id number] [phone] (HP) Date:2018-02-18 06/10/2018 Secondary SHAILA A [place] Insurance:MEDICAL SHAFFERDOB: [facility] [id number] Hospital Number: Repository [id number] Date:2563-44-13DQ [address] [place] [address]XI: 06/10/2018 Tertiary NOT GIVENUNK [place] Insurance:SELF PAY [facility] Number: Effective Repository Date:2018-06-10 06/08/2018 SHAILA A STOLL Primary SHAILA A STOLL [id number] Insurance:MEDICARE Jr.: [facility] [place] [facility] [id number] [place] [address] Number: Repository [id number]: 330 [id number] [phone] () Date:2018-06-08 06/08/2018 Secondary SHAILA A STOLL [place] Insurance:MEDICAL Jr.: [facility] [id number] Hospital Number: Repository [id number] Date:9193-10-93IB [address] [place] [address]BU: 06/08/2018 Tertiary NOT GIVENUNK [place] Insurance:SELF PAY [facility] Number: Effective Repository Date:2018-06-08 06/08/2018 SHAILA A Primary SHAILA A [place] [id number] Insurance:MEDICARE [facility]: [facility] [place] PART [facility] [id number] Number: Repository [id number]: (320) [id number] [phone] (HP) Date:2018-04-28 06/08/2018 Secondary SHAILA A [place] Insurance:MEDICAL SHAFFERDOB: [facility] [id number] Hospital Number: Repository [id number] Date:2479-05-75MV[address] [address]XB: 06/08/2018 Tertiary NOT GIVENUNK [place] Insurance:SELF PAY [facility] Number: Effective Repository Date:2018-05-31 05/18/2018 SHAILA A Primary SHAILA A [place] [id number] Insurance:MEDICARE SHAFFERDOB: [facility] PART A [facility] [id number] Number: Repository [id number]: 330 [id number] [phone] (HP) Date:2018-05-18 05/18/2018 Secondary SHAILA A [place] Insurance:MEDICAL SHAFFERDOB: [facility] [id number] Hospital Number: Repository [id number] Date:8644-04-96NQ[address] [address]FE: 05/18/2018 Tertiary NOT GIVENUNK [place] Insurance:SELF PAY [facility] Number: Effective Repository Date:2018-05-18 04/28/2018 SHAILA A Primary SHAILA A [place] [id number] Insurance:MEDICARE SHAFFERDOB: [facility] PART A [facility] [id number] Number: Repository [id number]: 330 [id number] [phone] (HP) Date:2018-04-27 04/28/2018 Secondary [place]A A [place] Insurance:MEDICAL SHAFFERDOB: [facility] [id number] Hospital Number: Repository [id number] Date:4555-26-84BA[address] [address]QJ: 04/28/2018 Tertiary NOT GIVENUNK [place] Insurance:SELF PAY [facility] Number: Effective Repository Date:2018-04-27 04/01/2018 SHAILA A Primary [place]AILA A [place] [id number] Insurance:MEDICARE SHAFFERDOB: Community [place] [facility] [id number] Number: Repository [id number]: 330 [id number] [phone] (HP) Date:2018-03-31 04/01/2018 Secondary SHAILA A [place] Insurance:MEDICAL SHAFFERDOB: [facility] [id number] Hospital Number: Repository [id number] Date:2153-49-27SI[address] [address]QY: 04/01/2018 Tertiary NOT GIVENUNK [place] Insurance:SELF PAY [facility] Number: Effective Repository Date:2018-04-01 03/31/2018 SHAILA A Primary [place] [id number] Insurance:MEDICARE [facility]DOB[facility] [id number] Number[place] Repository [id number]: 330 [id number] [phone] (HP) Date:2018-03-31 03/31/2018 Secondary SHAILA A [place] Insurance:MEDICAL SHAFFERDOB: [facility] [id number] Hospital Number: Repository [id number] Date:9070-74-60YO[address] [address]AX: 03/31/2018 Tertiary NOT GIVENUNK [place] Insurance:SELF PAY [facility] Number: Effective Repository Date:2018-03-31 03/31/2018 SHAILA A Primary [place] [id number] Insurance:MEDICARE SHAFFERDOB: [facility] [place] A [facility] [id number] Number: Repository [address]Wgo: 330 [id number] [phone] (HP) Date:2018-03-31 03/31/2018 Secondary SHAILA A [place] Insurance:MEDICAL SHAFFERDOB: [facility] [id number] Hospital Number: Repository [id number] Date:2103-68-75WR[address] [address]NA: 03/31/2018 Tertiary NOT GIVENUNK [place] Insurance:SELF PAY [facility] Number: Effective Repository Date:2018-03-31 03/31/2018 SHAILA A Primary [place] [id number] Insurance:MEDICARE SHAFFERDOB: [facility] PART A [facility] [id number] Number: Repository [id number]: (022) [id number] [phone] () Date:2018-03-31 03/31/2018 Secondary SHAILA A [place] Insurance:MEDICAL SHAFFERDOB: [facility] [id number] Hospital Number: Repository [id number] Date:5299-05-05GG[address] [address]LU: 03/31/2018 Tertiary NOT GIVENUNK [place] Insurance:SELF PAY [facility] Number: Effective Repository Date:2018-03-31 03/31/2018 SHAILA A Primary [place] [id number] Insurance:MEDICARE SHAFFERDOB: [facility] [id number] Number: Repository [id number]: 330 [id number] [phone] () Date:2018-03-31 03/31/2018 Secondary SHAILA A [place] Insurance:MEDICAL SHAFFERDOB: [facility] [id number] Hospital Number: Repository [id number] Date:6706-74-05TR[address] [address]EY: 03/31/2018 Tertiary NOT GIVENUNK [place] Insurance:SELF PAY [facility] Number: Effective Repository Date:2018-03-31 03/16/2018 SHAILA A Primary [place]AILA [place] [id number] Insurance:MEDICARE SHAFFERDOB: [facility] PART A [facility] [id number] [place] [address] Number: Repository [id number]: 330 [id number] [phone] () Date:2017-06-02 03/16/2018 Secondary [place]AILA A [place] Insurance:MEDICAL SHAFFERDOB: [facility] [id number] Hospital Number: Repository [id number] Date:8503-77-78VU [address] [address]TC: 03/16/2018 Tertiary [place]AILA A [place] Insurance:CARESOURCE SHAFFERDOB: [facility] [id number] Hospital Number: Repository [id number] Date:9044-64-86Fm[address] [address]DG: 03/16/2018 Tertiary NOT GIVENUNK [place] Insurance:SELF PAY [facility] Number: Effective Repository Date:2018-03-16 03/09/2018 SHAILA A Primary [place]A [place] [id number] Insurance:MEDICARE SHAFFERDOB: [facility] PART A [facility] [id number] Number: Repository [id number]: 330 [id number] [phone] () Date:2017-12-15 03/09/2018 Secondary SHAILA A [place] Insurance:MEDICAL SHAFFERDOB: [facility] [id number] Hospital Number: Repository [id number] Date:3596-48-81YV[address] [address]QZ: 03/09/2018 Tertiary [place] Insurance:CARESOURCE [facility]FFERDOB: [facility] [id number] Hospital Number: Repository [id number] Date:6422-21-37Wv[address] [address]JD: 03/09/2018 Tertiary NOT GIVENUNK [place] Insurance:SELF PAY [facility] Number: Effective Repository Date:2017-12-15 02/18/2018 SHAILA A [place] [id number] Insurance:MEDICARE SHAFFERDOB: Community [place] [facility] [id number] Number: Repository [address]Oev: 330 [id number] [phone] () Date:2017-11-25 02/18/2018 Secondary [place] Insurance:MEDICAL SHAFFERDOB: [facility] [id number] Hospital Number: Repository [id number] Date:5164-35-27HV[address] [address]MN: 02/18/2018 Tertiary NOT GIVENUNK [place] Insurance:SELF PAY [facility] Number: Effective Repository Date:2018-02-11 02/08/2018 SHAILA A Primary [place] [id number] Insurance:MEDICARE SHAFFERDOB: [facility] PART A [facility] [id number] Number: Repository [address]Obk: 330 [id number] [phone] () Date:2017-11-25 02/08/2018 Secondary [place] Insurance:MEDICAL SHAFFERDOB: [facility] [id number] Hospital Number: Repository [id number] Date:0534-56-24IT[address] [address]MB: 02/08/2018 Tertiary NOT GIVENUNK [place] Insurance:SELF PAY [facility] Number: Effective Repository Date:2018-02-08 02/05/2018 SHAILA A Primary [place] [id number] Insurance:MEDICARE SHAFFERDOB: [facility] PART A [facility] [id number] Number: Repository [address]Elo: 330 [id number] [phone] () Date:2017-11-25 02/05/2018 Secondary [place]A [place] Insurance:MEDICAL SHAFFERDOB: [facility] [id number] Hospital Number: Repository [id number] Date:1117-45-22TK[address] [address]KT: 02/05/2018 Tertiary NOT GIVENUNK [place] Insurance:SELF PAY [facility] Number: Effective Repository Date:2017-11-25 02/04/2018 SHAILA A Primary [place] [id number] Insurance:MEDICARE SHAFFERDOB: [facility] PART A [facility] [id number] Number: Repository [id number]: 330 [id number] [phone] () Date:2017-11-25 02/04/2018 Secondary [place] Insurance:MEDICAL SHAFFERDOB: [facility] [id number] Hospital Number: Repository [id number] Date:0315-84-97GG [facility] [address] [place] [address]MQ: 02/04/2018 Tertiary SHAILA A [place] Insurance:CARESOURCE SHAFFERDOB: [facility] [id number] Hospital Number: Repository [id number] Date:4144-24-76Ua [place] [address], [place] [address]PK: 02/04/2018 Tertiary NOT GIVENUNK [place] Insurance:SELF PAY [facility] Number: Effective Repository Date:2017-11-25 02/04/2018 SHAILA A [place] [id number] Insurance:MEDICARE SHAFFERDOB: [facility] PART A [facility] [id number] Number: Repository [id number]: 330 [id number] [phone] () Date:2017-11-25 02/04/2018 Secondary [place]A [place] Insurance:MEDICAL SHAFFERDOB: [facility] [id number] Hospital Number: Repository [id number] Date:4349-35-51CA [facility] [address] [place] [address]MQ: 02/04/2018 Tertiary SHAILA A [place] Insurance:CARESOURCE SHAFFERDOB: [facility] [id number] Hospital Number: Repository [id number] Date:8275-17-22Hw [address] [place] [address]GM: 02/04/2018 Tertiary NOT GIVENUNK [place] Insurance:SELF PAY [facility] Number: Effective Repository Date:2018-02-04 01/14/2018 SHAILA A [place] [id number] Insurance:MEDICARE SHAFFERDOB: Community [place] [facility] [id number] Number: Repository [address]Fmw: 330 [id number] [phone] () Date:2017-06-02 01/14/2018 Secondary [place]A A [place] Insurance:MEDICAL SHAFFERDOB: [facility] [id number] Hospital Number: Repository [id number] Date:6643-67-01IT [address] [address]PQ: 01/14/2018 Tertiary [place] Insurance:CARESOURCE SHAFFERDOB: [facility] [id number] Hospital Number: Repository [id number] Date:4723-79-82Pm [address] [address]VO: 01/14/2018 Tertiary NOT GIVENUNK [place] Insurance:SELF PAY [facility] Number: Effective Repository Date:2018-01-14 01/14/2018 SHAILA A [place] [id number] Insurance:MEDICARE SHAFFERDOB: [facility] [id number] Number: Repository [id number]: 330 [id number] [phone] () Date:2018-01-14 01/14/2018 Secondary [place]AILA A [place] Insurance:MEDICAL SHAFFERDOB: [facility] [id number] Hospital Number: Repository [id number] Date:9889-46-06ZS [address] [address]TV: 01/14/2018 Tertiary NOT GIVENUNK [place] Insurance:SELF PAY [facility] Number: Effective Repository Date:2018-01-14 12/15/2017 SHAILA A Primary [place]AILA [place] [id number] Insurance:MEDICARE SHAFFERDOB: Community [place] [facility] [id number] Number: Repository [id number]: 330 [id number] [phone] () Date:2017-06-02 12/15/2017 Secondary [place]AILA [place] Insurance:MEDICAL SHAFFERDOB: [facility] [id number] Hospital Number: Repository [id number] Date:1362-76-07JF [facility] [address] [place] [address]PA: 12/15/2017 Tertiary [place]A A [place] Insurance:CARESOURCE SHAFFERDOB: [facility] [id number] Hospital Number: Repository [id number] Date:9839-17-36Yl[address] [address]PA: 12/15/2017 Tertiary NOT GIVENUNK [place] Insurance:SELF PAY [facility] Number: Effective Repository Date:2017-12-15 11/25/2017 SHAILA A Primary HSAILA A [place] [id number] Insurance:MEDICARE SHAFFERDOB: Community [place] [facility] [id number] Number: Repository [address]Hhh: 330 [id number] [phone] () Date:2017-10-06 11/25/2017 Secondary SHAILA A [place] Insurance:MEDICAL SHAFFERDOB: [facility] [id number] Hospital Number: Repository [id number] Date:1293-25-03MP[address] [address]FH: 11/25/2017 Tertiary NOT GIVENUNK [place] Insurance:SELF PAY [facility] Number: Effective Repository Date:2017-11-18 11/24/2017 SHAILA A [place] [id number] Insurance:MEDICARE SHAFFERDOB: Community [place] [facility] [id number] Number: Repository [id number]: (120) [id number] [phone] (HP) Date:2017-06-02 11/24/2017 Secondary [place]AILA A [place] Insurance:MEDICAL SHAFFERDOB: [facility] [id number] Hospital Number: Repository [id number] Date:8271-80-62ZJ [address] [address]UN: 11/24/2017 Tertiary [place]AILA [place] Insurance:CARESOURCE SHAFFERDOB: [facility] [id number] Hospital Number: Repository [id number] Date:9634-49-29Uu [address], [place] [address]FK: 11/24/2017 Tertiary NOT GIVENUNK [place] Insurance:SELF PAY [facility] Number: Effective Repository Date:2017-11-24 11/03/2017 SHAILA A [place] [id number] Insurance:MEDICARE SHAFFERDOB: [facility] [place] A [facility] [id number] Number: Repository [id number]: [phone] [id number] [phone] () Date:2017-09-17 11/03/2017 Secondary [place]AILA [place] Insurance:MEDICAL SHAFFERDOB: [facility] [id number] Hospital Number: Repository [id number] Date:3908-27-70XZ[address] [address]YN: 11/03/2017 Tertiary NOT GIVENUNK [place] Insurance:SELF PAY [facility] Number: Effective Repository Date:2017-09-17 11/03/2017 SHAILA A [place] [id number] Insurance:MEDICARE SHAFFERDOB: [facility] [place] [facility] [id number][place] Number: Repository [id number]: (632) [id number] [phone] (HP) Date:2017-06-02 11/03/2017 Secondary SHAILA A [place] Insurance:MEDICAL SHAFFERDOB: [facility] [id number] Hospital Number: Repository [id number] Date:3354-58-60AV [address] [address]JI: 11/03/2017 Tertiary NOT GIVENUNK [place] Insurance:SELF PAY [facility] Number: Effective Repository Date:2017-11-03 10/13/2017 SHAILA A Primary SHAILA [place] [id number] Insurance:MEDICARE SHAFFERDOB: Community [place] [facility] [id number], [place] Number: Repository [address]Pdt: 330 [id number] [phone] () Date:2017-10-13 10/13/2017 Secondary [place]AILA [place] Insurance:MEDICAL SHAFFERDOB: [facility] [id number] Hospital Number: Repository [id number] Date:2993-48-87LE[address] [address]QB: 10/13/2017 Tertiary NOT GIVENUNK [place] Insurance:SELF PAY [facility] Number: Effective Repository Date:2017-10-13 10/06/2017 SHAILA A [place] [id number] Insurance:MEDICARE SHAFFERDOB: Community [place] [facility] [id number], [place] Number: Repository 88[address]Uty: 330 [id number] [phone] (HP) Date:2017-10-06 10/06/2017 Secondary SHAILA A [place] Insurance:MEDICAL SHAFFERDOB: [facility] 9320-49-19GZZ Hospital Number: Repository [id number] Date:1564-22-32KV[address] [address]KB: 10/06/2017 Tertiary NOT GIVENUNK [place] Insurance:SELF PAY [facility] Number: Effective Repository Date:2017-10-06 10/02/2017 SHAILA A Primary [place] [id number] Insurance:MEDICARE SHAFFERDOB: Community [place] [facility] [id number] Number: Repository [address]Jch: 330 [id number] [phone] (HP) Date:2017-10-02 10/02/2017 Secondary SHAILA [place] Insurance:MEDICAL SHAFFERDOB: [facility] [id number] Hospital Number: Repository [id number] Date:4597-09-37CQ[address] [address]KT: 10/02/2017 Tertiary NOT GIVENUNK [place] Insurance:SELF PAY [facility] Number: Effective Repository Date:2017-10-02 10/02/2017 SHAILA A Primary [place]AILA [place] [id number] Insurance:MEDICARE SHAFFERDOB: Community [place] [facility] [id number] Number: Repository [address]Ndf: 330 [id number] [phone] (HP) Date:2017-10-02 10/02/2017 Secondary SHAILA A [place] Insurance:MEDICAL SHAFFERDOB: [facility] 6801-90-03PRJ Hospital Number: Repository [id number] Date:1055-60-72KR[address] [address]CV: 10/02/2017 Tertiary NOT GIVENUNK [place] Insurance:SELF PAY [facility] Number: Effective Repository Date:2017-10-02 10/02/2017 SHAILA A Primary SHAILA A [place] [id number] Insurance:MEDICARE SHAFFERDOB: [facility] [place] A [facility] [id number] Number: Repository [address]Ekp: 330 [id number] [phone] (HP) Date:2017-10-02 10/02/2017 Secondary SHAILA A [place] Insurance:MEDICAL SHAFFERDOB: [facility] 4310-08-22MOM Hospital Number: Repository [id number] Date:3654-22-66GI[address] [address]SE: 10/02/2017 Tertiary NOT GIVENUNK [place] Insurance:SELF PAY [facility] Number: Effective Repository Date:2017-10-02 10/02/2017 SHAILA A [place] [id number] Insurance:MEDICARE SHAFFERDOB: [facility] [place] [facility] [id number] Number: Repository [id number]: (191) [id number] [phone] (HP) Date:2017-10-02 10/02/2017 Secondary SHAILA A [place] Insurance:MEDICAL SHAFFERDOB: [facility] 2292-39-67HXO Hospital Number: Repository [id number] Date:5310-40-55OA [address] [address]OV: 10/02/2017 Tertiary NOT GIVENUNK [place] Insurance:SELF PAY [facility] Number: Effective Repository Date:2017-10-02 10/02/2017 SHAILA A Primary [place]AILA A [place] [id number] Insurance:MEDICARE SHAFFERDOB: Community [place] [facility] [id number] Number: Repository [address]Kgu: 330 [id number] [phone] () Date:2017-10-02 10/02/2017 Secondary SHAILA A [place] Insurance:MEDICAL SHAFFERDOB: [facility] [id number] Hospital Number: Repository [id number] Date:0799-28-93YO [address] [place] [address]BG: 10/02/2017 Tertiary NOT GIVENUNK [place] Insurance:SELF PAY [facility] Number: Effective Repository Date:2017-10-02 10/02/2017 SHAILA A Primary SHAILA A [place] [id number] Insurance:MEDICARE SHAFFERDOB: [facility] [place] [facility] [id number], [place] Number: Repository [id number]: ([phone]) [id number] [phone] () Date:2017-10-02 10/02/2017 Secondary SHAILA A [place] Insurance:MEDICAL SHAFFERDOB: [facility] 9739-58-98EUC Hospital Number: Repository [id number] Date:3334-04-22HN [address] [place] [address]UC: 10/02/2017 Tertiary NOT GIVENUNK [place] Insurance:SELF PAY [facility] Number: Effective Repository Date:2017-10-02 10/02/2017 SHAILA A Primary SHAILA A [place] [id number] Insurance:MEDICARE SHAFFERDOB: [facility] PART A [facility] [id number], [place] Number: Repository [id number]: ([phone]) [id number] [phone] () Date:2017-10-02 10/02/2017 Secondary SHAILA A [place] Insurance:MEDICAL SHAFFERDOB: [facility] [id number] Hospital Number: Repository [id number] Date:7581-44-29NS [address] [place] [address]XJ: 10/02/2017 Tertiary NOT GIVENUNK [place] Insurance:SELF PAY [facility] Number: Effective Repository Date:2017-10-02 09/24/2017 SHAILA A Primary SHAILA A [place] [id number] [place]EV[place] Insurance:CARESOURCE SHAFFERDOB: Community [address] JUST FOR [facility] 9760-19-36XMK[place] Number[place] Repository [id number]: [id number] [phone] Date:9001-08-93Zr [address] () [address], [place] [address]HC: 09/24/2017 Secondary NOT GIVENUNK [place] Insurance:SELF PAY [facility] Number: Effective Repository Date:2017-09-23 09/16/2017 SHAILA A Primary SHAILA A [place] [id number] KEV[place] Insurance:CARESOURCE SHAFFERDOB: [facility] RDAPPLE JUST FOR [facility] 4531-34-56VSF[place]rat[place] Number: Repository [address]Fqa: [id number] [phone] Date:3095-52-69Ep [address] (HP) [address], [place] [address]TP: 09/16/2017 Secondary NOT GIVENUNK [place] Insurance:SELF PAY [facility] Number: Effective Repository Date:2017-09-15 09/15/2017 SHAILA A Primary SHAILA [id number] KEV[place] Insurance:CARESOURCE SHAFFERDOB: Community [address] [facility] [id number], id Number: Repository [address]Lkj: [id number] [phone] Date:0954-09-91Fr [address] (HP) [address] [address]BF: 09/15/2017 Secondary NOT GIVENUNK [place] Insurance:SELF PAY [facility] Number: Effective Repository Date:2017-09-15 09/02/2017 SHAILA A Primary SHAILA [id number] KEV[place] Insurance:CARESOURCE SHAFFERDOB: Community [address] [facility] [id number] Memorial Hospital, id Number: Repository [id number]: [id number] [phone] Date:9202-84-37QF [address] (HP) [place] [address]WA: 09/02/2017 Secondary NOT GIVENUNK [place] Insurance:SELF PAY [facility] Number: Effective Repository Date:2017-07-13 08/27/2017 Shaila A Primary Shaila [id number] [place] Insurance:CARESOURCE ShafferDOB: Community [address] JUST FOR [facility] [id number] [facility], id Number: Repository [id number]: [id number] [phone] Date:1127-78-03Vb [address] (HP) [address] [address]VM: 08/27/2017 Secondary NOT GIVENUNK [place] Insurance:SELF PAY [facility] Number: Effective Repository Date:2017-08-27 08/17/2017 Shaila A Primary Shaila Davi [place] [id number] [place] Insurance:MERA ThomsaB: [facility] 5828-05-[place] Number[place] Repository [id number]: [id number] [phone] Date:7902-91-75Wy [address] (PD) [address], [place] [address]EQ: 08/17/2017 Secondary NOT GIVENUNK [place] Insurance:SELF PAY [facility] Number: Effective Repository Date:2017-08-17
== END ==
PROVIDERS: Internal Medicine Hematology & Oncology; Family Provider Preventive Medicine Occupational Medicine; PCP Preventive Medicine Occupational Medicine; Referring Provider Nurse Practitioner Acute Care; Visit Provider Nurse Practitioner Acute Care
DX: C34.32 Malignant neoplasm of lower lobe, left bronchus or lung (principal); J91.0 Malignant pleural effusion; C61 Malignant neoplasm of prostate; C79.51 Secondary malignant neoplasm of bone
CPT/HCPCS: 32555; 71046; 83615; 84157; 87070; 87075; 87205; 88108; 88305; 88313; 88341; 88342

== ENCOUNTER 2018-07-03 09:07 | Inpatient (IN) | payer MEDICARE, OTHER, SELFPAY ==
[2018-07-01 12:29] VITALS: BMI 27.9
[2018-07-03] VITALS (10 sets, daily range): BP systolic 127–141; BP diastolic 75–83; PULSE 80–101; RESP 16–18; TEMP 36.8–37.6; O2SAT 93–99; BMI 27.6; BMI 26.6
--- NOTE | 2018-07-03 09:19 | EKG12_ITS ---
Test Reason : ABDOMINAL PAIN Blood Pressure : / mmHG Vent. Rate : 083 BPM Atrial Rate : 083 BPM P-R Int : 134 ms QRS Dur : 082 ms QT Int : 378 ms P-R-T Axes : 040 002 012 degrees QTc Int : 444 ms Normal sinus rhythm Low voltage QRS (limb leads) Confirmed by KAREN JOHNSON, TANGELA ([id number]), editorial writer MIR VANEGAS ([id number]) on 07/06/2018 2:24:13 PM Referred By: SABI Confirmed By:TANGELA JONES MD
--- NOTE | 2018-07-03 09:21 | CT_ITS ---
STUDY: CT ABDOMEN AND PELVIS WITHOUT CONTRAST REASON FOR EXAM: Male, 67 years old. Abdominal pain. Status post thoracentesis. History of lung cancer with left lower lobe lung resection and chemotherapy. Prostate cancer with removal and radiation therapy. Hernia repair. RADIATION DOSAGE (If Supplied By Facility): CTDIvol = ( 11.13 ) mGy, DLP = ( 625.91 ) mGycm TECHNIQUE: Transaxial images were obtained from the dome of the diaphragm to the symphysis pubis without oral contrast, and without intravenous contrast. Sagittal and coronal images were reconstructed. Individualized dose optimization techniques were used for this CT. COMPARISON: June 18, 2018 FINDINGS: There is been interval worsening of consolidations and effusions at the left lung base and nodular changes at the right lung base. The visualized portions of the heart are within normal limits. Partially visualized is lymphadenopathy in the subcarinal and right hilar regions. Normal liver. Normal gallbladder and extrahepatic biliary system. Normal spleen. Normal pancreas. Normal bilateral adrenal glands. There is a 3 cm cyst in the lower pole of the right kidney appearing stable. There is a 2.5 cm cyst in the midpole of the left kidney appearing stable. Normal visualized stomach. Normal small intestine. Normal colon. The appendix is visualized and appears normal. Normal abdominal aorta. Normal inferior vena cava. Normal retroperitoneum. Normal urinary bladder. Normal abdominal wall. Normal osseous structures. CT/Abdomen/Pelvis without Cont IMPRESSION: Worsening consolidations and effusions at the left lung base and nodular changes at the right lung base. Partially visualized right hilar and subcarinal lymphadenopathy. Bilateral renal cysts. Electronically Signed: Fritz Lee, at 10:19 EST Tel , Service support ,
--- NOTE | 2018-07-03 09:21 | RAD_ITS ---
STUDY: X-RAY CHEST REASON FOR EXAM: Male, 67 years old. Left lung cancer and surgery. Post thoracentesis one day ago. TECHNIQUE: Single AP upright view of the chest was obtained frontal projection. Good quality COMPARISON: July 02, 2018. FINDINGS: Again noted is consolidation and effusion at the left lung base appearing similar to the prior study. No definitive pneumothorax is appreciated. Right lung appears grossly clear. There is a small left effusion. Normal size heart. Normal mediastinum and quinton. Normal visualized pulmonary arteries. Normal visualized aortic arch and descending thoracic aorta. Normal visualized thoracic spine. Normal visualized ribs, clavicles, and shoulders. There is no demonstrated abnormality of the visualized soft tissue structures of the upper abdomen. RAD/Chest 1 View (Portable) IMPRESSION: Stable-appearing consolidation and effusion at the left lung base. Electronically Signed: Fritz Lee, at 10:34 EST Tel , Service support ,
[2018-07-03 09:29] LABS: Absolute Lymphocyte Count 0.95 X10^3/ul (0.83-4.51); Basophil# 0.02 X10^3/uL; Basophil% 0.2 % (0-1); Eosinophil# 0.05 X10^3/uL; Eosinophils% 0.5 % (0-5); Hematocrit 30.1 % (40-54); Hemoglobin 9.7 g/dl (13.0-16.5); Lymphocyte # 0.95 X10^3/ul (4.0); Lymphocyte % 9.6 % (19-41); Mean Corp Hgb Conc 32.2 g/gl (32-36); Mean Corpuscular Hgb 30.5 pg (27.0-32.0); Mean Corpuscular Volume 94.7 fL (80-94); Mean Platelet Vol. 8.6 fl (6.2-12.0); Monocyte# 0.83 X10^3/uL; Monocyte% 8.4 % (0-10); Neutrophil # 8.01 X10^3/uL (2.7-7.7); Neutrophil % 80.6 % (47-70); POSITIVE COUNT NO; POSITIVE DIFFERENTIAL NO; POSITIVE MORPHOLOGY NO; Platelet Count 207 K/mm3 (150-450); RBC Distribution Width CV 15.2 % (11.6-14.6); RBC Distribution Width SD 50.5 fl (35.1-43.9); Red Blood Count 3.18 M/mm3 (4.6-6.2); White Blood Count 9.9 K/mm3 (4.4-11.0)
[2018-07-03] MEDS: 0.9% Normal Saline 1,000 ML 125 ML IV (09:31)
[2018-07-03 09:54] LABS: ALB/GLOB Ratio 0.5 RATIO (0.9-2.4); AST(SGOT) 39 U/L (15-37); Alanine Aminotransfer ALT/SGPT 35 U/L (16-61); Albumin, Serum 2.7 g/dL (3.2-5.0); Alkaline Phosphatase 135 U/L (45-117); Anion Gap 8 (5-15); BUN 16 mg/dL (7-18); BUN/Creat Ratio 14.8 RATIO (10-20); Calcium,Total 8.3 mg/dL (8.5-10.1); Chloride 103 mmol/L (98-107); Creatinine, Serum 1.08 mg/dL (0.70-1.30); EST Glomerular Filtration Rate 73 mL/min (>60); Est Glom Filt Rate - Afr Amer 88 mL/min (>60); Estimated Creatinine Clearance 70.41 ml/min; Globulin 5.2 g/dL (2.2-4.2); Glucose 114 mg/dL (74-106); Lipase 70 U/L (73-393); Potassium 4.1 mmol/L (3.5-5.1); Protein, Total 7.9 g/dL (6.4-8.2); Sodium Level 137 mmol/L (136-145)
[2018-07-03 10:07] LABS: Lactic Acid 1.1 mmol/L (0.4-2.0)
[2018-07-03] MEDS: Aspirin 81 MG TAB.CHEW 324 MG PO (10:33)
--- NOTE | 2018-07-03 10:40 | ED.VISSUMM ---
- ER Visit Summary Date of Service: 07/03/18 Chief Complaint: [Abdominal pain and fatigue] History of Present Illness: The patient is a 67 M [presents to the emergency department complaint of extreme fatigue this morning. Patient states that he also had some upper abdominal discomfort that started this morning that he ranked about a 4 5 out of 10 on initial presentation of the abdominal pain however on arrival to ER he states the pain is improved and only rates it a mild 2 out of 10 currently. Patient denies any vomiting or diarrhea. He denies any fevers. Patient states that he had a procedure performed yesterday a thoracentesis to take off 2 L of fluid off his left lung. Patient has a history of cancer in the left lung and he had a lobectomy of the left side earlier this year. Patient states that he was told that his cancer returned. Patient had been on Lovenox for history of pulmonary embolism and DVT but discontinued it several days ago to have the thoracentesis performed and patient was supposed to restart that today. Patient denies any chest pain currently but has had some intermittent pressure in his chest. Patient has had fatigue for weeks but more severe today.] Physical Examination: [HEENT-PERRLA, EOMI. Cranial nerves II through XII grossly intact. TMs clear. Mucous membranes moist. No adenopathy. Cardiovascular-regular rate and rhythm without murmur or ectopy Lungs-rales noted in both bases left greater than right. No tachypnea. No accessory muscle use or retractions. Abdomen-normoactive bowel sounds, soft. Patient has some mild tenderness in the epigastric region. There is no rebound, rigidity, or perineal signs. Extremities-intact ?4, normal range of motion, normal pulses, atraumatic] Test Results: [CBC with differential obtained showed a white count of 9.9, hemoglobin 9.7, hematocrit 30, platelet 207. Chemistries unremarkable. LFTs were normal. Lipase was 70. Troponin was elevated 1.8. EKG obtained arrival shows sinus rhythm with a ventricular rate of 83 bpm with no acute ST segment changes. Chest x-ray obtained showed cardiomegaly and left pleural effusion. CT scan of the abdomen pelvis without contrast showed increased consolidation left lung base and increased effusion. No significant abnormalities noted in the abdomen.] Emergency Department Course and Treatment: [Patient was given aspirin in the emergency department and given his Lovenox dose.] Treatment Plan: [Admit for further workup and evaluation] Disposition: [Admit] Impression: [Abdominal pain-etiology uncertain Non-ST elevation [place] Fatigue] This note was generated with [employer] dictation software. It may contain incorrect words, spelling, and punctuation that were not noted in review of the chart prior to signing ED Disposition - Plan for ED Patient: Chief Complaint: Abd Pain Referrals: Doron Vernon DO [Primary Care Provider] -
--- NOTE | 2018-07-03 10:44 | ED.DCSUM_ITS ---
- ER Visit Summary Date of Service: 07/03/18 Chief Complaint: [Abdominal pain and fatigue] History of Present Illness: The patient is a 67 M [presents to the emergency department complaint of extreme fatigue this morning. Patient states that he also had some upper abdominal discomfort that started this morning that he ranked about a 4 5 out of 10 on initial presentation of the abdominal pain however on arrival to ER he states the pain is improved and only rates it a mild 2 out of 10 currently. Patient denies any vomiting or diarrhea. He denies any fevers. Patient states that he had a procedure performed yesterday a thoracentesis to take off 2 L of fluid off his left lung. Patient has a history of cancer in the left lung and he had a lobectomy of the left side earlier this year. Patient states that he was told that his cancer returned. Patient had been on Lovenox for history of pulmonary embolism and DVT but discontinued it several days ago to have the thoracentesis performed and patient was supposed to restart that today. Patient denies any chest pain currently but has had some intermittent pressure in his chest. Patient has had fatigue for weeks but more severe today.] Physical Examination: [HEENT-PERRLA, EOMI. Cranial nerves II through XII grossly intact. TMs clear. Mucous membranes moist. No adenopathy. Cardiovascular-regular rate and rhythm without murmur or ectopy Lungs-rales noted in both bases left greater than right. No tachypnea. No ac cessory muscle use or retractions. Abdomen-normoactive bowel sounds, soft. Patient has some mild tenderness in the epigastric region. There is no rebound, rigidity, or perineal signs. Extremities-intact ?4, normal range of motion, normal pulses, atraumatic] Test Results: [CBC with differential obtained showed a white count of 9.9, hemoglobin 9.7, hematocrit 30, platelet 207. Chemistries unremarkable. LFTs were normal. Lipase was 70. Troponin was elevated 1.8. EKG obtained arrival shows sinus rhythm with a ventricular rate of 83 bpm with no acute ST segment changes. Chest x-ray obtained showed cardiomegaly and left pleural effusion. CT scan of the abdomen pelvis without contrast showed increased consolidation left lung base and increased effusion. No significant abnormalities noted in the abdomen.] Emergency Department Course and Treatment: [Patient was given aspirin in the emergency department and given his Lovenox dose.] Treatment Plan: [Admit for further workup and evaluation] Disposition: [Admit] Impression: [Abdominal pain-etiology uncertain Non-ST elevation [place] Fatigue] This note was generated with [employer] dictation software. It may contain incorrect words, spelling, and punctuation that were not noted in review of the chart prio r to signing ED Disposition - Plan for ED Patient: Chief Complaint: Abd Pain Referrals: Doron Vernon DO [Primary Care Provider] -
[2018-07-03] MEDS: Enoxaparin 150 MG/ML Syringe SC (10:58)
--- NOTE | 2018-07-03 11:40 | ECHOD_ITS ---
Reason For Study: S/P [place] Procedure This was a 2D Doppler, Color Flow transthoracic echocardiogram. Myocardial strain analysis was performed in this exam to aid in the assessment of cardiac function. Strain analysis performed with suboptimal imaging. The study was technically difficult. Exam performed portable in patient room. Left Ventricle Normal LV size. Left ventricular systolic function is normal. The estimated ejection fraction is 70 %. No evidence for diastolic dysfunction. No regional wall motion abnormalities noted. Right Ventricle Normal RV size. Normal systolic function. Atria The left atrium is mildly enlarged. Normal right atrium. No doppler evidence for ASD. Mitral Valve There is no mitral annular calcification. Normal mitral valve. Trivial mitral valve insufficiency. Tricuspid Valve Normal tricuspid valve. Trivial tricuspid valve insufficiency. Unable to estimate RV systolic pressure/pulmonary artery pressure due to technically difficult study. Aortic Valve Trisinus/trileaflet aortic valve. Mild focal aortic valve thickening. Pulmonic Valve The pulmonic valve is not well visualized. Trivial pulmonic valve insufficiency. Great Vessels Normal sized aortic root. Pericardium/Pleural No pericardial effusion. MMode/2D Measurements & Calculations LVIDd: 3.8 cm IVSd: 0.99 cm Ao root diam: 3.2 cm LVIDs: 2.2 cm LVPWd: 1.0 cm LA dimension: 3.8 cm RVDd: 3.2 cm FS: 41.6 % LAV(MOD-bp): 49.5 ml LVAd ap4: 19.7 cm2 SV(MOD-sp4): 22.5 ml LAV(MOD-bp) Indexed: 24.1 ml/m2 EDV(MOD-sp4): 42.8 ml LAV(MOD-sp2): 59.6 ml EDV(sp4-el): 43.8 ml LAV(MOD-sp4): 36.3 ml LVAs ap4: 11.6 cm2 ESV(MOD-sp4): 20.3 ml ESV(sp4-el): 20.0 ml EF(MOD-sp4): 52.6 % EF(sp4-el): 54.5 % SV(sp4-el): 23.9 ml LA A4 area: 14.6 cm2 RA A4 area: 12.5 cm2 Time Measurements MV dec time: 0.24 sec Doppler Measurements & Calculations MV E max kiran: 80.2 cm/sec Lat Peak E' Kiran: 13.1 cm/sec Med Peak E' Kiran: 7.9 cm/sec MV A max kiran: 92.4 cm/sec E/E' lat: 6.1 E/E' med: 10.2 MV E/A: 0.87 Ao V2 max: 161.0 cm/sec LV V1 max: 145.5 cm/sec PA V2 max: 106.9 cm/sec Ao max P.4 mmHg LV V1 max P.5 mmHg Interpretation Summary The study was technically difficult. Left ventricular systolic function is normal. The estimated ejection fraction is 70 %. The left atrium is mildly enlarged. Trivial mitral valve insufficiency. Trivial tricuspid valve insufficiency. Mild focal aortic valve thickening. Trivial pulmonic valve insufficiency. Unable to estimate RV systolic pressure/pulmonary artery pressure due to technically difficult study. No evidence for diastolic dysfunction. Ordering Physician: Doc Higuera Referring Physician: SUSANNA POTTS Performed By: Tahira Warren RDCS
--- NOTE | 2018-07-03 12:56 | PCM.HP.STD ---
Problem List (1) COPD (chronic obstructive pulmonary disease) Status: Chronic (2) Bone metastases Status: Acute (3) Pleural effusion, malignant Status: Acute (4) Prostate cancer Status: Chronic Comment: surgery , R.T. 2014 PSA relapse 2016 ADT (5) Cancer of lower lobe of left lung Status: Chronic (6) Pulmonary embolism Status: Suspected Qualifiers: (7) Adenocarcinoma of lung Status: Chronic Qualifiers: (8) Hyperlipidemia Status: Chronic (9) Hypertension Status: Chronic (10) History of prostatectomy Status: Chronic History of Present Illness Date of Admission: 07/03/18 Chief Complaint: Abdominal pain. The patient is a 67 year old M with past medical history as mentioned above presented to the emergency room because of abdominal pain and fatigue. His symptoms started last night with abdominal pain, located in the mid abdomen, dull aching pain, 3 out of 10 in severity, not radiating, no associated symptoms and without aggravating or relieving factors. He denied nausea or vomiting. Denies constipation or diarrhea. He denies urinary symptoms. He mentioned that he has been having symptoms of chest pressure intermittently for the last several weeks. He denied actual chest pain. He denied worsening shortness of breath, cough or sputum production. He denies fever or chills. He had ultrasound-guided left thoracentesis yesterday that was done by urology, approximately 1780 cc of blood-tinged fluid was drained. He has a history of adenocarcinoma of the lung status post left lower lobe resection and chemotherapy. He had a PET scan done on June 28, 2018 that revealed increased glucose uptake in the mediastinum and bilateral thoracic perihilum with criteria for viable neoplasm. He has a history of bladder cancer status post prostatectomy back in 2014 and he has been on leuprolide. He had a history of recurrent DVTs/PEs and he developed recurrent blood clots while on Eliquis and that is why he was started on therapeutic Lovenox. In the emergency room, patient was afebrile, blood pressure and heart rate were stable, pulse ox was 98% on 2 L. Routine blood work was remarkable for anemia with stable hemoglobin, otherwise normal. His LFT was normal as well as lipase. His EKG revealed normal sinus rhythm without evidence of acute ischemic changes. His troponin was elevated at 1.81. CT scan abdomen and pelvis without contrast revealed worsening consolidation and effusion in the left lung base and no evidence of significant acute intra-abdominal pathology. Chest x-ray revealed cardiomegaly, small left pleural effusion and probable left lower lobe consolidation. He is being admitted for acute ST elevation AK, worsening left lower lobe consolidation/atelectasis and unexplained abdominal pain. Past Medical History Past Medical History (Chronic Problems): Chronic Problems (Last Updated 07/03/18 @ 12:52 by Doc Higuera MD) COPD (chronic obstructive pulmonary disease) (Chronic) Prostate cancer (Chronic) surgery , R.T. 2014 PSA relapse 2016 ADT Multiple sclerosis (Chronic) left leg weakness Cancer of lower lobe of left lung (Chronic) Regional lymph node metastasis present (Chronic) Anemia (Chronic) Adenocarcinoma of lung (Chronic) Hyperlipidemia (Chronic) Hypertension (Chronic) History of prostatectomy (Chronic) 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) [facility] 07/03/17 Medical History: Medical History (Last Updated 07/03/18 @ 12:52 by Doc Higuera MD) Adenocarcinoma of lung (Chronic) C34.90 Hyperlipidemia (Chronic) E78.5 Hypertension (Chronic) I10 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) [facility] 07/03/17 BLOOD CLOT LUNGS Deep vein blood clot of left lower extremity I82.402 Deep vein blood clot of right lower extremity I82.401 Allergies morphine Adverse Reaction (Intermediate, Verified 07/03/18 09:12) MAKES HIS NAUSEATED AND SICK Home Medications: Ambulatory Orders Medication Instructions Recorded Leuprolide Acetate [Lupron Depot 3.75 mg IM Q90D #0 10/02/17 ([place])] Bisoprolol Fumarate [Zebeta] 10 mg PO DAILY #0 11/03/17 Handicap Placard #1 ea 02/18/18 Aspirin [Aspirin, Baby] 81 mg PO DAILY@0800 #30 tab.chew 04/01/18 enoxaparin 150 mg/mL subcutaneous 150 mg SC DAILY #30 ml 04/28/18 syringe albuterol sulfate concentrate 2.5 2.5 mg INHALATION Q4H PRN #180 ea 07/02/18 mg/0.5 mL solution for nebulization Surgical History: Surgical History (Last Updated 07/03/18 @ 12:52 by Doc Higuera MD) History of prostatectomy (Chronic) Z98.890, Z90.79 Surgical History: - - Left lower lobe resection. Prostatectomy. Psychiatric History: No pertinent psych hx Lives: Spouse/ Significant Other Smoking Status: Former smoker Alcohol: None, Rare - *Family History Maternal Family History: Family History (Last Reviewed 07/01/18 @ 12:53 by HAI Zamora) Father Prostate cancer Liver cancer Liver disease Mother Bone cancer History Items: No pertinent history Paternal Family History: Family History (Last Reviewed 07/01/18 @ 12:53 by HAI Zamora) Father Prostate cancer Liver cancer Liver disease Mother Bone cancer History Items: No pertinent history Review of Systems Constitutional: Reports: Anorexia, Weakness, Fatigue. Denies: Chills, Fever Eyes: Denies: Blurred vision, Double vision, Drainage, Redness HEENT: Denies: Difficulty Hearing, Ear Pain, Eye Pain, Nasal Congestion, Sore Throat Cardiovascular: Reports: Chest Pressure. Denies: Chest Pain, Heaviness, Light Headedness, Palpitations, Paroxysmal Noc. Dyspnea, Syncope Respiratory: Denies: Cough, Hemoptysis, Pleuritic Pain, Shortness of Breath, Sputum production, Wheezing Gastrointestinal: Reports: Abdominal Pain. Denies: Constipation, Diarrhea, Hematochezia, Nausea, Melena, Vomiting Genitourinary: Denies: Dysuria, Frequency, Hematuria Musculoskeletal: Denies: Arm Pain, Back Pain, Foot Pain Skin: Denies: Dryness, Rash Neurological: Denies: Balance problems, Blurred vision, Change in Speech, Slurred speech, Confusion, Headaches, Incoordination, Numbness Psychiatric: Denies: Anxiety, Depression Endocrine: Denies: Change in Body Habitus, Polydipsia VTE Information - Inpt Only VTE Present on Admission: No VTE Mechan Device Prophylaxis: None VTE Pharm Prophylaxis ordered?: No Patient Problems: Active and Suspected Problems (Last Updated 07/03/18 @ 12:52 by Doc Higuera MD) Bone metastases (Acute) Pleural effusion, malignant (Acute) - Physical Exam General: Alert, Oriented x3, Cooperative, No apparent distress HEENT: Atraumatic, PERRLA, EOMI, Normocephalic Oral: Moist Mucosa, No Gingival or Mucosal Lesions/ Ulcerations Neck: Supple, No JVD, Negative Carotid Bruits, Trachea Midline, Thyroid Normal Size and Texture Lungs: Clear to auscultation, No rhonchi, No wheeze, No rales, Diminished Cardiovascular: Regular rate, Regular Rhythm, Normal S1, Normal S2, No murmurs, PMI Normal Abdomen: Bowel Sounds Present, Soft, Non Tender, Non-Distended, No Hepato-splenomegaly Extremities: No clubbing, No cyanosis, No edema Skin: No rashes, No breakdown Lymphatic: No Cervical, Supraclavicular, or Inguinal Adenopathy Neurological: Cranial nerves II-XII grossly intact, Motor Exam 5/5 strength throughout Psych/Mental Status: Normal Affect, Appropriate, Alert and oriented to time, place, person, mood and affect Vital Signs Temp Pulse Resp BP Pulse Ox 98.3 F 81 16 141/78 H 98 07/03/18 11:43 07/03/18 11:43 07/03/18 11:43 07/03/18 11:43 07/03/18 11:43 Oxygen Flow Rate (L/min) 2 Oxygen Delivery Method Nasal Cannula Weight: 185 lb 13.595 oz Body Mass Index (BMI) 26.6 Laboratory Tests Past 24 Hrs 07/03/18 07/03/18 07/03/18 09:15 09:15 09:32 WBC 9.9 RBC 3.18 L Hgb 9.7 L Hct 30.1 L MCV 94.7 H MCH 30.5 MCHC 32.2 RDW 15.2 H RDW Differential 50.5 H Plt Count 207 MPV 8.6 Immature Gran % (Auto) 0.700 Neut % (Auto) 80.6 H Lymph % (Auto) 9.6 L [place] % (Auto) 8.4 Eos % (Auto) 0.5 Baso % (Auto) 0.2 Absolute Neuts (auto) 8.0 H Absolute Lymphs (auto) 0.95 Total Counted Not Reportable Sodium 137 Potassium 4.1 Chloride 103 Carbon Dioxide 26.0 Anion Gap 8 BUN 16 Creatinine 1.08 Estim Creat Clear Calc 70.41 Est GFR (MDRD) Af Amer 88 Est GFR (MDRD) Non-Af 73 BUN/Creatinine Ratio 14.8 Glucose 114 H Lactic Acid 1.1 Calcium 8.3 L Total Bilirubin 0.50 AST 39 H ALT 35 Alkaline Phosphatase 135 H Troponin I 1.810 H* Total Protein 7.9 Albumin 2.7 L Globulin 5.2 H Albumin/Globulin Ratio 0.5 L Lipase 70 L 07/03/18 12:25 WBC RBC Hgb Hct MCV MCH MCHC RDW RDW Differential Plt Count MPV Immature Gran % (Auto) Neut % (Auto) Lymph % (Auto) [place] % (Auto) Eos % (Auto) Baso % (Auto) Absolute Neuts (auto) Absolute Lymphs (auto) Total Counted Sodium Potassium Chloride Carbon Dioxide Anion Gap BUN Creatinine Estim Creat Clear Calc Est GFR (MDRD) Af Amer Est GFR (MDRD) Non-Af BUN/Creatinine Ratio Glucose Lactic Acid Calcium Total Bilirubin AST ALT Alkaline Phosphatase Troponin I 1.920 H* Total Protein Albumin Globulin Albumin/Globulin Ratio Lipase Clinical Impression(s) from Imaging Studies Abdomen/Pelvis CT 07/03/18 09:21 IMPRESSION: Worsening consolidations and effusions at the left lung base and nodular changes at the right lung base. Partially visualized right hilar and subcarinal lymphadenopathy. Bilateral renal cysts. Electronically Signed: Fritz Lee, at 10:19 EST Tel , Service support , Chest X-Ray 07/03/18 09:21 IMPRESSION: Stable-appearing consolidation and effusion at the left lung base. Electronically Signed: Fritz Lee, at 10:34 EST Tel , Service support , Assessment/Plan All Active Problems (Last Updated 07/03/18 @ 12:52 by Doc Higuera MD) Bone metastases (Acute) Pleural effusion, malignant (Acute) This is a 67 years old male patient presented to the emergency room because of vague abdominal pain and fatigue, found to have elevated troponin consistent with acute non-ST elevation AK without evidence of acute ischemic changes on EKG. #1 acute non-ST elevation AK: Troponin is elevated at 1.81, no acute ischemic changes on EKG. At this time, patient denies any chest pain. His vital signs are stable. He had 2D echocardiogram on June 18, 2018 and revealed normal LV size and function, ejection fraction of 60%, stage II diastolic dysfunction. Plan: Admit to PCU, cardiac monitoring, serial cardiac enzymes, repeat EKG tomorrow morning, continue aspirin and bisoprolol, continue therapeutic Lovenox, cardiology consult, repeat CBC and BMP tomorrow morning, fasting lipid profile, PT OT evaluation and treatment. #2 abdominal pain: Mild, vague, no clear etiology. CT scan abdomen and pelvis reviewed, no acute intra-abdominal pathology identified. BMP, lipase and LFT was normal. Lactic acid was normal. Plan for IV fluids, cardiac diet, IV antiemetics, IV pain medications. #3 left pleural effusion: Malignant, status post left thoracentesis that was done yesterday. CT scan abdomen revealed increasing left lower lobe consolidation. At this time, I doubt acute pneumonia. Chest x-ray revealed small left pleural effusion with left lower lobe consolidation. Patient denies any cough or sputum reduction, no fever. He has no leukocytosis, lactic acid is normal. This could be due to recurrence of his cancer. Plan: Bronchodilators, chest physiotherapy, pulmonology consult. #4 history of adenocarcinoma of the lung: Status post resection of the left lower lobe, status post chemotherapy. He had a PET scan done recently that revealed increased glucose uptake in the mediastinum and pre-hilum suggestive of viable neoplasm. Plan: Pulmonology consult. #5 history of prostate cancer: Status post prostatectomy, on leuprolide. Stable, continue same medications. #6 hypertension: Blood pressure stable, continue bisoprolol. #7 history of recurrent DVTs/PEs: Continue therapeutic Lovenox daily. #8 DVT prophylaxis: Patient will be on therapeutic Lovenox. This note was generated with [employer] dictation software. It may contain incorrect words, spelling, and punctuation that were not noted in checking the note before signing. Code Visit Inpatient E&M: 40121 Init Hosp L3
--- NOTE | 2018-07-03 13:03 | HP.PCM_ITS ---
Problem List (1) COPD (chronic obstructive pulmonary disease) Status: Chronic (2) Bone metastases Status: Acute (3) Pleural effusion, malignant Status: Acute (4) Prostate cancer Status: Chronic Comment: surgery , R.T. 2014 PSA relapse 2016 ADT (5) Cancer of lower lobe of left lung Status: Chronic (6) Pulmonary embolism Status: Suspected Qualifiers: (7) Adenocarcinoma of lung Status: Chronic Qualifiers: (8) Hyperlipidemia Status: Chronic (9) Hypertension Status: Chronic (10) History of prostatectomy Status: Chronic History of Present Illness Date of Admission: 07/03/18 Chief Complaint: Abdominal pain. The patient is a 67 year old M with past medical history as mentioned above presented to the emergency room because of abdominal pain and fatigue. His symptoms started last night with abdominal pain, located in the mid abdomen, dull aching pain, 3 out of 10 in severity, not radiating, no associated symptoms and without aggravating or relieving factors. He denied nausea or vomiting. Denies constipation or diarrhea. He denies urinary symptoms. He mentioned that he has been having symptoms of chest pressure intermittently for the last several weeks. He denied actual chest pain. He denied worsening shortness of breath, cough or sputum production. He denies fever or chills. He had ultrasound-guided left thoracentesis yesterday that was done by urology, approximately 1780 cc of blood-tinged fluid was drained. He has a history of adenocarcinoma of the lung status post left lower lobe resection and chemotherapy. He had a PET scan done on June 28, 2018 that revealed increased glucose uptake in the mediastinum and bilateral thoracic perihilum with criteria for viable neoplasm. He has a history of bladder cancer status post prostatectomy back in 2014 and he has been on leuprolide. He had a history of recurrent DVTs/PEs and he developed recurrent blood clots while on Eliquis and that is why he was started on therapeutic Lovenox. In the emergency room, patient was afebrile, blood pressure and heart rate were stable, pulse ox was 98% on 2 L. Routine blood work was remarkable for anemia with stable hemoglobin, otherwise normal. His LFT was normal as well as lipase. His EKG revealed normal sinus rhythm without evidence of acute ischemic changes. His troponin was elevated at 1.81. CT scan abdomen and pelvis without contrast revealed worsening consolidation and effusion in the left lung base and no evidence of significant acute intra-abdominal pathology. Chest x-ray revealed cardiomegaly, small left pleural effusion and probable left lower lobe consolidation. He is being admitted for acute ST elevation [place], worsening left lower lobe consolidation/atelectasis and unexplained abdominal pain. Past Medical History Past Medical History (Chronic Problems): Chronic Problems (Last Updated 07/03/18 @ 12:52 by Doc Higuera MD) COPD (chronic obstructive pulmonary disease) (Chronic) Prostate cancer (Chronic) surgery , R.T. 2014 PSA relapse 2016 ADT Multiple sclerosis (Chronic) left leg weakness Cancer of lower lobe of left lung (Chronic) Regional lymph node metastasis present (Chronic) Anemia (Chronic) Adenocarcinoma of lung (Chronic) Hyperlipidemia (Chronic) Hypertension (Chronic) History of prostatectomy (Chronic) 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) [facility] 07/03/17 Medical History: Medical History (Last Updated 07/03/18 @ 12:52 by Doc Higuera MD) Adenocarcinoma of lung (Chronic) C34.90 Hyperlipidemia (Chronic) E78.5 Hypertension (Chronic) I10 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) [facility] 07/03/17 BLOOD CLOT LUNGS Deep vein blood clot of left lower extremity I82.402 Deep vein blood clot of right lower extremity I82.401 Allergies morphine Adverse Reaction (Intermediate, Verified 07/03/18 09:12) MAKES HIS NAUSEATED AND SICK Home Medications: Ambulatory Orders Medication Instructions Recorded Leuprolide Acetate [Lupron Depot 3.75 mg IM Q90D #0 10/02/17 ([place])] Bisoprolol Fumarate [Zebeta] 10 mg PO DAILY #0 11/03/17 Handicap Placard #1 ea 02/18/18 Aspirin [Aspirin, Baby] 81 mg PO DAILY@0800 #30 tab.chew 04/01/18 enoxaparin 150 mg/mL subcutaneous 150 mg SC DAILY #30 ml 04/28/18 syringe albuterol sulfate concentrate 2.5 2.5 mg INHALATION Q4H PRN #180 ea 07/02/18 mg/0.5 mL solution for nebulization Surgical History: Surgical History (Last Updated 07/03/18 @ 12:52 by Doc Higuera MD) History of prostatectomy (Chronic) Z98.890, Z90.79 Surgical History: - - Left lower lobe resection. Prostatectomy. Psychiatric History: No pertinent psych hx Lives: Spouse/ Significant Other Smoking Status: Former smoker Alcohol: None, Rare - *Family History Maternal Family History: Family History (Last Reviewed 07/01/18 @ 12:53 by HAI Zamora) Father Prostate cancer Liver cancer Liver disease Mother Bone cancer History Items: No pertinent history Paternal Family History: Family History (Last Reviewed 07/01/18 @ 12:53 by HAI Zamora) Father Prostate cancer Liver cancer Liver disease Mother Bone cancer History Items: No pertinent history Review of Systems Constitutional: Reports: Anorexia, Weakness, Fatigue. Denies: Chills, Fever Eyes: Denies: Blurred vision, Double vision, Drainage, Redness HEENT: Denies: Difficulty Hearing, Ear Pain, Eye Pain, Nasal Congestion, Sore Throat Cardiovascular: Reports: Chest Pressure. Denies: Chest Pain, Heaviness, Light Headedness, Palpitations, Paroxysmal Noc. Dyspnea, Syncope Respiratory: Denies: Cough, Hemoptysis, Pleuritic Pain, Shortness of Breath, Sputum production, Wheezing Gastrointestinal: Reports: Abdominal Pain. Denies: Constipation, Diarrhea, Hematochezia, Nausea, Melena, Vomiting Genitourinary: Denies: Dysuria, Frequency, Hematuria Musculoskeletal: Denies: Arm Pain, Back Pain, Foot Pain Skin: Denies: Dryness, Rash Neurological: Denies: Balance problems, Blurred vision, Change in Speech, Slurred speech, Confusion, Headaches, Incoordination, Numbness Psychiatric: Denies: Anxiety, Depression Endocrine: Denies: Change in Body Habitus, Polydipsia VTE Information - Inpt Only VTE Present on Admission: No VTE Mechan Device Prophylaxis: None VTE Pharm Prophylaxis ordered?: No Patient Problems: Active and Suspected Problems (Last Updated 07/03/18 @ 12:52 by Doc Higuera MD) Bone metastases (Acute) Pleural effusion, malignant (Acute) - Physical Exam General: Alert, Oriented x3, Cooperative, No apparent distress HEENT: Atraumatic, PERRLA, EOMI, Normocephalic Oral: Moist Mucosa, No Gingival or Mucosal Lesions/ Ulcerations Neck: Supple, No JVD, Negative Carotid Bruits, Trachea Midline, Thyroid Normal Size and Texture Lungs: Clear to auscultation, No rhonchi, No wheeze, No rales, Diminished Cardiovascular: Regular rate, Regular Rhythm, Normal S1, Normal S2, No murmurs, PMI Normal Abdomen: Bowel Sounds Present, Soft, Non Tender, Non-Distended, No Hepato- splenomegaly Extremities: No clubbing, No cyanosis, No edema Skin: No rashes, No breakdown Lymphatic: No Cervical, Supraclavicular, or Inguinal Adenopathy Neurological: Cranial nerves II-XII grossly intact, Motor Exam 5/5 strength throughout Psych/Mental Status: Normal Affect, Appropriate, Alert and oriented to time, place, person, mood and affect Vital Signs Temp Pulse Resp BP Pulse Ox 98.3 F 81 16 141/78 H 98 07/03/18 11:43 07/03/18 11:43 07/03/18 11:43 07/03/18 11:43 07/03/18 11:43 Oxygen Flow Rate (L/min) 2 Oxygen Delivery Method Nasal Cannula Weight: 185 lb 13.595 oz Body Mass Index (BMI) 26.6 Laboratory Tests Past 24 Hrs 07/03/18 07/03/18 07/03/18 09:15 09:15 09:32 WBC 9.9 RBC 3.18 L Hgb 9.7 L Hct 30.1 L MCV 94.7 H MCH 30.5 MCHC 32.2 RDW 15.2 H RDW Differential 50.5 H Plt Count 207 MPV 8.6 Immature Gran % (Auto) 0.700 Neut % (Auto) 80.6 H Lymph % (Auto) 9.6 L Pettis % (Auto) 8.4 Eos % (Auto) 0.5 Baso % (Auto) 0.2 Absolute Neuts (auto) 8.0 H Absolute Lymphs (auto) 0.95 Total Counted Not Reportable Sodium 137 Potassium 4.1 Chloride 103 Carbon Dioxide 26.0 Anion Gap 8 BUN 16 Creatinine 1.08 Estim Creat Clear Calc 70.41 Est GFR (MDRD) Af Amer 88 Est GFR (MDRD) Non-Af 73 BUN/Creatinine Ratio 14.8 Glucose 114 H Lactic Acid 1.1 Calcium 8.3 L Total Bilirubin 0.50 AST 39 H ALT 35 Alkaline Phosphatase 135 H Troponin I 1.810 H* Total Protein 7.9 Albumin 2.7 L Globulin 5.2 H Albumin/Globulin Ratio 0.5 L Lipase 70 L 07/03/18 12:25 WBC RBC Hgb Hct MCV MCH MCHC RDW RDW Differential Plt Count MPV Immature Gran % (Auto) Neut % (Auto) Lymph % (Auto) Pettis % (Auto) Eos % (Auto) Baso % (Auto) Absolute Neuts (auto) Absolute Lymphs (auto) Total Counted Sodium Potassium Chloride Carbon Dioxide Anion Gap BUN Creatinine Estim Creat Clear Calc Est GFR (MDRD) Af Amer Est GFR (MDRD) Non-Af BUN/Creatinine Ratio Glucose Lactic Acid Calcium Total Bilirubin AST ALT Alkaline Phosphatase Troponin I 1.920 H* Total Protein Albumin Globulin Albumin/Globulin Ratio Lipase Clinical Impression(s) from Imaging Studies Abdomen/Pelvis CT 07/03/18 09:21 IMPRESSION: Worsening consolidations and effusions at the left lung base and nodular changes at the right lung base. Partially visualized right hilar and subcarinal lymphadenopathy. Bilateral renal cysts. Electronically Signed: Fritz Lee, at 10:19 EST Tel , Service support , Chest X-Ray 07/03/18 09:21 IMPRESSION: Stable-appearing consolidation and effusion at the left lung base. Electronically Signed: Fritz Lee, at 10:34 EST Tel , Service support , Assessment/Plan All Active Problems (Last Updated 07/03/18 @ 12:52 by Doc Higuera MD) Bone metastases (Acute) Pleural effusion, malignant (Acute) This is a 67 years old male patient presented to the emergency room because of vague abdominal pain and fatigue, found to have elevated troponin consistent with acute non-ST elevation OH without evidence of acute ischemic changes on E KG. #1 acute non-ST elevation OH: Troponin is elevated at 1.81, no acute ischemic changes on EKG. At this time, patient denies any chest pain. His vital signs are stable. He had 2D echocardiogram on June 18, 2018 and revealed normal LV size and function, ejection fraction of 60%, stage II diastolic dysfunction. Plan: Admit to PCU, cardiac monitoring, serial cardiac enzymes, repeat EKG valeria orrow morning, continue aspirin and bisoprolol, continue therapeutic Lovenox, cardiology consult, repeat CBC and BMP tomorrow morning, fasting lipid profile, PT OT evaluation and treatment. #2 abdominal pain: Mild, vague, no clear etiology. CT scan abdomen and pelvis reviewed, no acute intra-abdominal pathology identified. BMP, lipase and LFT was normal. Lactic acid was normal. Plan for IV fluids, cardiac diet, IV antiemetics, IV pain medications. #3 left pleural effusion: Malignant, status post left thoracentesis that was done yesterday. CT scan abdomen revealed increasing left lower lobe consolidation. At this time, I doubt acute pneumonia. Chest x-ray revealed small left pleural effusion with left lower lobe consolidation. Patient denies any cough or sputum reduction, no fever. He has no leukocytosis, lactic acid is normal. This could be due to recurrence of his cancer. Plan: Bronchodilators, chest physiotherapy, pulmonology consult. #4 history of adenocarcinoma of the lung: Status post resection of the left lower lobe, status post chemotherapy. He had a PET scan done recently that revealed increased glucose uptake in the mediastinum and pre-hilum suggestive of viable neoplasm. Plan: Pulmonology consult. #5 history of prostate cancer: Status post prostatectomy, on leuprolide. Stable, continue same medications. #6 hypertension: Blood pressure stable, continue bisoprolol. #7 history of recurrent DVTs/PEs: Continue therapeutic Lovenox daily. #8 DVT prophylaxis: Patient will be on therapeutic Lovenox. This note was generated with iMER dictation software. It may contain incorrect words, spelling, and punctuation that were not noted in checking the note before signing. Code Visit Inpatient E&M: 42108 Init Hosp L3
--- NOTE | 2018-07-03 14:04 | CT_ITS ---
STUDY: CTA CHEST/THORAX REASON FOR EXAM: Male, 67 years old. Chest and mid abdominal pain, started after thoracentesis yesterday. History of prostate and lung cancer, left lower lobe resection. Last chemotherapy was 6 months ago. RADIATION DOSAGE (If Supplied By Facility): CTDIvol = ( 15.54 ) mGy, DLP = ( 609.03 ) mGycm TECHNIQUE: The examination was performed with the intravenous administration of 100 ml of Isovue 370 contrast material. Post-processing of the angiographic images was performed, with multiplanar reformation and 3D reconstruction. Individualized dose optimization techniques were used for this CT. COMPARISON: Portable AP upright chest x-ray 0949 hours; PET/CT June 28, 2018; CT chest/thorax with IV contrast June 18, 2018.. FINDINGS: Normal enhancement of the main pulmonary artery and right and left pulmonary arteries. Generally normal enhancement of the bilateral peripheral pulmonary arteries. The right lower lobe and possibly central middle lobe pulmonary arteries are encased by soft tissue density that is likely a combination of confluent adenopathy and airspace disease. Filling defect consistent with thrombus that was present in the distal main trunk of the right lower lobe pulmonary artery on prior study (series 2 image 60 of that examination) now extends into the segmental right lower lobe branches. No left pulmonary embolus is present. There is minor atherosclerotic calcification of the aortic arch and proximal brachiocephalic arteries. There is no demonstrated aortic dissection. Normal heart and pericardium. Grossly stable mediastinal, subcarinal, and right hilar lymph nodes, the latter areas appearing as a relatively confluent soft tissue density encasing the central bronchovascular structures at the right hilum. There are nonspecific borderline enlarged lymph nodes at the left hilum. The largest there is a 13 x 11 x 10.5 mm infrahilar lymph node on series 2 image 20, series 601 image 125. Normal visualized trachea and bronchi. Mild elevation of left diaphragm is more prominent today. Worsened infrahilar right base peribronchial thickening and ill-defined stranding of inflammatory change or partial volume loss with crowding. Minor subsegmental atelectasis noted in the medial periphery of the right lower lobe. Stable 7 mm nodular density in the posterior periphery of the right lower lobe on series 2 image 116. Calcified granulomata in the anterolateral periphery of the right mid chest and posterolateral periphery of the right upper lobe are unchanged. There is stable minor linear scarring or subsegmental atelectasis anterolateral right middle lobe, as well as focal density in the posterior periphery of the right upper lobe abutting the pleural fissure on series 2 image 165. On the left, there is stable partial lower lobe collapse. There is a stable small to moderate volume left sided pleural effusion. A few gas bubbles are now present within the fluid along the posterior lateral margin of the depressed pleural fissure. Normal chest wall structures. There are stable multilevel degenerative changes of the thoracic spine. Stable mild anterior wedging of the T9 vertebra. Stable old healed lateral left fifth rib fracture and nonunited, distracted fracture of the posterior left sixth rib Normal visualized upper abdomen. CT/CTA Chest W/WO Contrast IMPRESSION: 1. Stable multiple moderate size left pleural effusion. A few gas bubbles now present in the fluid along the posterolateral left mid chest, raising concern of evolving empyema. There is stable partial collapse of the left lower lobe. 2. Worsened infrahilar right base peribronchial thickening and ill-defined stranding of inflammatory change or volume loss/crowding. Stable 7 mm nodule in the posterior peripheral right lower lobe. Occasional calcified granulomata also noted. 3. Grossly stable mediastinal, subcarinal, and right hilar lymphadenopathy, with confluent soft tissue density encasing the central right bronchovascular structures. 4. Incompletely occlusive thrombus in the right lower lobe pulmonary artery has progressed into the segmental right lower lobe branches. This likely reflects local disease secondary to stasis of flow rather than acute pulmonary embolus. Electronically Signed: Collin Michael MD at 17:19 EST , Service support ,
--- NOTE | 2018-07-03 14:05 | PCM.CONS.C ---
Problem List (1) NSTEMI (non-ST elevated myocardial infarction) Status: Acute (2) Chest pain Status: Acute (3) Hyperlipidemia Status: Chronic (4) Hypertension Status: Chronic (5) COPD (chronic obstructive pulmonary disease) Status: Chronic (6) Adenocarcinoma of lung Status: Chronic Qualifiers: (7) Prostate cancer Status: Chronic Comment: surgery , R.T. 2014 PSA relapse 2016 ADT (8) Bone metastases Status: Acute (9) Pleural effusion, malignant Status: Acute (10) Pulmonary embolism Status: Suspected Qualifiers: Reason for Consult Date of Consultation: 07/03/18 History of Present Illness: The patient is a 67 year old white male with a past medical history of hyperlipidemia, hypertension, COPD, prostate carcinoma, lung carcinoma status post resection, malignant pleural effusion, pulmonary embolism, who is now referred for concerns of abnormal cardiac enzymes compatible with an acute non-ST segment elevation AL with a history of chest pressure superimposed upon abdominal discomfort and fatigue. The patient has been following with outpatient hematology oncology. Yesterday he did not take his long-term anticoagulant, Lovenox, as he underwent a thoracentesis procedure. His thoracentesis procedure was performed on the left side at which time he had removed approximately 1780 cc of a blood-tinged fluid. He states he did not sleep well yesterday evening. Today he was noting abdominal discomfort. Based upon that and his chronic fatigue he elected to present to the hospital for further evaluation. However at the same time he notes that for some nights now he has had chest pressure. It does not radiate. He has chronic shortness of breath/dyspnea. He does not complain of any acute nausea or emesis. There has been no acute near syncope or syncope. He has not had ongoing lower extremity peripheral pitting edema that he is aware of. However he states when he does receive IV fluids from his mailing specialist oncologist that he can have transient lower extremity edema. During his evaluation he was found to have an abnormal troponin I level. It was repeated and remained abnormal. His ECG demonstrated sinus rhythm with low voltage QRS in the limb leads but no acute ECG changes. A chest x-ray was performed which suggested a residual left-sided pleural effusion. He also recently had a transthoracic echocardiogram performed on 08/18/2017. At that time the left ventricle was thought to be normal with an LVEF of 60%, mild MR, mild TR, mild focal aortic valve calcification, and an estimated PA systolic pressure 45 mmHg. There was also evidence of decreased diastolic compliance. He states he was to have an exercise tolerance test performed earlier this year. However based on recurrent pulmonary emboli this did not occur. He does note that his mailing specialist oncologist told him that he may have approximately 6 months to live. [] Past Medical History Allergies/Adverse Reactions: Allergies morphine Adverse Reaction (Intermediate, Verified 07/03/18 09:12) MAKES HIS NAUSEATED AND SICK Home Medications: Ambulatory Orders Medication Instructions Recorded Leuprolide Acetate [Lupron Depot 3.75 mg IM Q90D #0 10/02/17 ([place])] Bisoprolol Fumarate [Zebeta] 10 mg PO DAILY #0 11/03/17 Handicap Placard #1 ea 02/18/18 Aspirin [Aspirin, Baby] 81 mg PO DAILY@0800 #30 tab.chew 04/01/18 enoxaparin 150 mg/mL subcutaneous 150 mg SC DAILY #30 ml 04/28/18 syringe albuterol sulfate concentrate 2.5 2.5 mg INHALATION Q4H PRN #180 ea 07/02/18 mg/0.5 mL solution for nebulization Past Medical History (Chronic Problems): Chronic Problems (Last Updated 07/03/18 @ 12:52 by Doc Higuera MD) COPD (chronic obstructive pulmonary disease) (Chronic) Prostate cancer (Chronic) surgery , R.T. 2014 PSA relapse 2016 ADT Multiple sclerosis (Chronic) left leg weakness Cancer of lower lobe of left lung (Chronic) Regional lymph node metastasis present (Chronic) Anemia (Chronic) Adenocarcinoma of lung (Chronic) Hyperlipidemia (Chronic) Hypertension (Chronic) History of prostatectomy (Chronic) 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) A[facility]ANDRAU [facility] 07/03/17 Surgical History: - - Left lower lobe resection. Prostatectomy. Psychiatric History: No pertinent psych hx - *Family History Maternal Family History: Family History (Last Reviewed 07/01/18 @ 12:53 by HAI Zamora) Father Prostate cancer Liver cancer Liver disease Mother Bone cancer History Items: No pertinent history Paternal Family History: Family History (Last Reviewed 07/01/18 @ 12:53 by HAI Zamora) Father Prostate cancer Liver cancer Liver disease Mother Bone cancer History Items: No pertinent history Lives: Spouse/ Significant Other Smoking Status: Former smoker Alcohol: None, Rare Drugs: None Review of Systems - Review of Systems General: Reports: Fatigue. Denies: Fever, Night Sweats Cardiovascular: Reports: Chest Discomfort, Chest Discomfort at Rest, Shortness of Breath, Shortness of Breath at Rest, Shortness of Breath with Exertion. Denies: Orthopnea, PND, Peripheral Edema, Palpitations, Lightheadedness, Dizziness, Near Syncope, Syncope Respiratory: Reports: Shortness of Breath. Denies: Cough, Sputum Production, Hemoptysis Gastrointestinal: Reports: Abdominal Discomfort. Denies: Hematemesis, Hematochezia, Melena Genitourinary: Denies: Dysuria, Hematuria Skin: Denies: Rash Subjectve: This is a 67-year-old white male who appears to be resting reasonably comfortably at the moment in no acute distress. Objective: Vital Signs Temp Pulse Resp BP Pulse Ox 98.3 F 80 16 141/78 H 98 07/03/18 11:43 07/03/18 11:46 07/03/18 11:43 07/03/18 11:43 07/03/18 11:43 Oxygen Flow Rate (L/min) 2 Oxygen Delivery Method Nasal Cannula Weight: 185 lb 13.595 oz Body Mass Index (BMI) 26.6 General: Awake, Alert, Oriented x 3, Cooperative, No Acute Distress, - - Chronically ill-appearing HEENT: Atraumatic, Normocephalic, PERRL, EOMI, Sclera Non Icteric Oral: Moist Mucosa Neck: Supple, Good ROM, No JVD Lungs: Diminished Left Base Cardiovascular: Regular Rhythm, Normal S1, Normal S2 Vascular: No Carotid Bruits Abdomen: Bowel Sounds Present, Soft Extremities: No edema Neurological: No Focal Motor or Sensory Deficit Psych/Mental Status: Appropriate 07/03/18 09:15: WBC 9.9, RBC 3.18 L, Hgb 9.7 L, Hct 30.1 L, MCV 94.7 H, MCH 30.5, MCHC 32.2, RDW 15.2 H, RDW Differential 50.5 H, Plt Count 207, MPV 8.6, Immature Gran % (Auto) 0.700, Neut % (Auto) 80.6 H, Lymph % (Auto) 9.6 L, [place] % (Auto) 8.4, Eos % (Auto) 0.5, Baso % (Auto) 0.2, Absolute Neuts (auto) 8.0 H, Total Counted Not Reportable 07/03/18 09:15: Sodium 137, Potassium 4.1, Chloride 103, Carbon Dioxide 26.0, Anion Gap 8, BUN 16, Creatinine 1.08, Est GFR (MDRD) Af Amer 88, Est GFR (MDRD) Non-Af 73, BUN/Creatinine Ratio 14.8, Glucose 114 H, Calcium 8.3 L, Total Bilirubin 0.50, Troponin I 1.810 H* 07/03/18 09:32: Lactic Acid 1.1 07/03/18 12:25: Troponin I 1.920 H* Rhythm: Sinus rhythm EKG: Sinus rhythm; low voltage QRS limb leads ECHO: As noted above CXR: As noted above Assessment/Plan 1. Non-ST segment elevation AL The etiology for his abnormal cardiac enzymes raise concern of underlying cardiovascular disease with a primary acute coronary syndrome. However at the same time other etiologies have to be considered. The patient has a history of pulmonary embolism on more than one occasion. It may be less likely he had a recurrent event with the lack of 1 dose of anticoagulant therapy, however, is still possible based on his past history. Thus it may not be unreasonable to further evaluate him for possible recurrent pulmonary embolism. There is been no obvious etiology for an acute CVA. He does not appear to be in acute renal insufficiency. He does not appear to be septic at this time. From a cardiac standpoint he will be treated medically which will include agents such as aspirin, antiplatelets, nitrates, beta-blockers, etc. as deemed appropriate. He has resumed anticoagulant therapy. It would not be unreasonable to consider further evaluation from a cardiac standpoint which would include a diagnostic cardiac catheterization. This would be to evaluate for CAD that would be amenable to percutaneous intervention that may assist with the patient's quality of life. He would not be a candidate for CT surgery based upon his diagnosis and his limited life expectancy per his mailing specialist/oncologist. Was discussed with the patient. The present time he will consider undergoing diagnostic cardiac catheterization and possible PCI for quality of life issues. In the interim it may not be unreasonable to reassess him for a possibility of a recurrent PE based on his past history. This can be accomplished with a chest CT scan with IV contrast. 2. Chest pain He does complain of chest pressure. He states this is been going on for a few nights. It does not radiate. He does have chronic shortness of breath/dyspnea. He is also been fatigued. It is unclear whether this symptom is cardiac or related to his other noncardiac issues such as his previous thromboembolic disease and her ongoing pleural-based disease process, etc. Thus he will continue evaluation care as noted above. 3. Hyperlipidemia He can continue evaluation care as deemed appropriate at this time. 4. Hypertension His blood pressure will be followed. He will continue medical adjustment as needed. 5. COPD He does have a history of underlying COPD. He is following with Dr. Mullen pulmonology. 6. 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 He recently underwent thoracentesis. He has a blood-tinged pleural effusion which raises concerns of a malignant pleural effusion. It may be related to his lung carcinoma. However, at the same time he also has a history of prostate carcinoma and thus contribution from this cannot be excluded. 7. Prostate carcinoma His hematology oncology notes it appears he also has a history of prostate carcinoma. Thus is unclear whether this may be contributing to his metastatic findings as well. 8. Pulmonary embolism He has had pulmonary embolism on more than one occasion. This does raise a concern as to whether or not he could have had a recurrent recurrent acute PE that may explain his change in clinical course as well as his laboratory studies. Thus a chest CT can with IV contrast would not be unreasonable. Of note, the patient states that for the time being he is decided that he will receive no additional chemotherapy, etc., for his underlying carcinoma diagnosis and/or static disease. He states he was told that he may only have approximately 6 months to live. He notes at the present time he is more concerned about his quality of life and his quantity of life. Comment: The above was discussed with the patient and his significant other present. The patient's case has also been previously discussed with Dr. Higuera. This note was generated with [employer] software. It may contain incorrect words, spelling, and punctuation that were not noted in checking the note before signing.
--- NOTE | 2018-07-03 14:11 | CON.PCM_ITS ---
Problem List (1) NSTEMI (non-ST elevated myocardial infarction) Status: Acute (2) Chest pain Status: Acute (3) Hyperlipidemia Status: Chronic (4) Hypertension Status: Chronic (5) COPD (chronic obstructive pulmonary disease) Status: Chronic (6) Adenocarcinoma of lung Status: Chronic Qualifiers: (7) Prostate cancer Status: Chronic Comment: surgery , R.T. 2014 PSA relapse 2016 ADT (8) Bone metastases Status: Acute (9) Pleural effusion, malignant Status: Acute (10) Pulmonary embolism Status: Suspected Qualifiers: Reason for Consult Date of Consultation: 07/03/18 History of Present Illness: The patient is a 67 year old white male with a past medical history of hyperlipidemia, hypertension, COPD, prostate carcinoma, lung carcinoma status post resection, malignant pleural effusion, pulmonary embolism, who is now referred for concerns of abnormal cardiac enzymes compatible with an acute non- ST segment elevation CT with a history of chest pressure superimposed upon abdominal discomfort and fatigue. The patient has been following with outpatient hematology oncology. Yesterday he did not take his long-term anticoagulant, Lovenox, as he underwent a thoracentesis procedure. His thoracentesis procedure was performed on the left side at which time he had removed approximately 1780 cc of a blood-tinged fluid. He states he did not sleep well yesterday evening. Today he was noting abdominal discomfort. Based upon that and his chronic fatigue he elected to present to the hospital for further evaluation. However at the same time he notes that for some nights now he has had chest pressure. It does not radiate. He has chronic shortness of breath/dyspnea. He does not complain of any acute nausea or emesis. There has been no acute near syncope or syncope. He has not had ongoing lower extremity peripheral pitting edema that he is aware of. However he states when he does receive IV fluids from his machine fur cleaner oncologist that he can have transient lower extremity edema. During his evaluation he was found to have an abnormal troponin I level. It was repeated and remained abnormal. His ECG demonstrated sinus rhythm with low voltage QRS in the limb leads but no acute ECG changes. A chest x-ray was performed which suggested a residual left-sided pleural effusion. He also recently had a transthoracic echocardiogram performed on 08/18/2017. At that time the left ventricle was thought to be normal with an LVEF of 60%, mild MR, mild TR, mild focal aortic valve calcification, and an estimated PA systolic pressure 45 mmHg. There was also evidence of decreased diastolic compliance. He states he was to have an exercise tolerance test performed earlier this year. However based on recurrent pulmonary emboli this did not occur. He does note that his machine fur cleaner oncologist told him that he may have approximately 6 months to live. [] Past Medical History Allergies/Adverse Reactions: Allergies morphine Adverse Reaction (Intermediate, Verified 07/03/18 09:12) MAKES HIS NAUSEATED AND SICK Home Medications: Ambulatory Orders Medication Instructions Recorded Leuprolide Acetate [Lupron Depot 3.75 mg IM Q90D #0 10/02/17 ([place])] Bisoprolol Fumarate [Zebeta] 10 mg PO DAILY #0 11/03/17 Handicap Placard #1 ea 02/18/18 Aspirin [Aspirin, Baby] 81 mg PO DAILY@0800 #30 tab.chew 04/01/18 enoxaparin 150 mg/mL subcutaneous 150 mg SC DAILY #30 ml 04/28/18 syringe albuterol sulfate concentrate 2.5 2.5 mg INHALATION Q4H PRN #180 ea 07/02/18 mg/0.5 mL solution for nebulization Past Medical History (Chronic Problems): Chronic Problems (Last Updated 07/03/18 @ 12:52 by Doc Higuera MD) COPD (chronic obstructive pulmonary disease) (Chronic) Prostate cancer (Chronic) surgery , R.T. 2014 PSA relapse 2016 ADT Multiple sclerosis (Chronic) left leg weakness Cancer of lower lobe of left lung (Chronic) Regional lymph node metastasis present (Chronic) Anemia (Chronic) Adenocarcinoma of lung (Chronic) Hyperlipidemia (Chronic) Hypertension (Chronic) History of prostatectomy (Chronic) 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) A[facility]ANDRAU [facility] 07/03/17 Surgical History: - - Left lower lobe resection. Prostatectomy. Psychiatric History: No pertinent psych hx - *Family History Maternal Family History: Family History (Last Reviewed 07/01/18 @ 12:53 by HAI Zamora) Father Prostate cancer Liver cancer Liver disease Mother Bone cancer History Items: No pertinent history Paternal Family History: Family History (Last Reviewed 07/01/18 @ 12:53 by HAI Zamora) Father Prostate cancer Liver cancer Liver disease Mother Bone cancer History Items: No pertinent history Lives: Spouse/ Significant Other Smoking Status: Former smoker Alcohol: None, Rare Drugs: None Review of Systems - Review of Systems General: Reports: Fatigue. Denies: Fever, Night Sweats Cardiovascular: Reports: Chest Discomfort, Chest Discomfort at Rest, Shortness of Breath, Shortness of Breath at Rest, Shortness of Breath with Exertion. Denies: Orthopnea, PND, Peripheral Edema, Palpitations, Lightheadedness, Dizziness, Near Syncope, Syncope Respiratory: Reports: Shortness of Breath. Denies: Cough, Sputum Production, Hemoptysis Gastrointestinal: Reports: Abdominal Discomfort. Denies: Hematemesis, Hematochezia, Melena Genitourinary: Denies: Dysuria, Hematuria Skin: Denies: Rash Subjectve: This is a 67-year-old white male who appears to be resting reasonably comfortably at the moment in no acute distress. Objective: Vital Signs Temp Pulse Resp BP Pulse Ox 98.3 F 80 16 141/78 H 98 07/03/18 11:43 07/03/18 11:46 07/03/18 11:43 07/03/18 11:43 07/03/18 11:43 Oxygen Flow Rate (L/min) 2 Oxygen Delivery Method Nasal Cannula Weight: 185 lb 13.595 oz Body Mass Index (BMI) 26.6 General: Awake, Alert, Oriented x 3, Cooperative, No Acute Distress, - - Chronically ill-appearing HEENT: Atraumatic, Normocephalic, PERRL, EOMI, Sclera Non Icteric Oral: Moist Mucosa Neck: Supple, Good ROM, No JVD Lungs: Diminished Left Base Cardiovascular: Regular Rhythm, Normal S1, Normal S2 Vascular: No Carotid Bruits Abdomen: Bowel Sounds Present, Soft Extremities: No edema Neurological: No Focal Motor or Sensory Deficit Psych/Mental Status: Appropriate 07/03/18 09:15: WBC 9.9, RBC 3.18 L, Hgb 9.7 L, Hct 30.1 L, MCV 94.7 H, MCH 30.5, MCHC 32.2, RDW 15.2 H, RDW Differential 50.5 H, Plt Count 207, MPV 8.6, Immature Gran % (Auto) 0.700, Neut % (Auto) 80.6 H, Lymph % (Auto) 9.6 L, [place] % (Auto) 8.4, Eos % (Auto) 0.5, Baso % (Auto) 0.2, Absolute Neuts (auto) 8.0 H, Total Counted Not Reportable 07/03/18 09:15: Sodium 137, Potassium 4.1, Chloride 103, Carbon Dioxide 26.0, Anion Gap 8, BUN 16, Creatinine 1.08, Est GFR (MDRD) Af Amer 88, Est GFR (MDRD) Non-Af 73, BUN/Creatinine Ratio 14.8, Glucose 114 H, Calcium 8.3 L, Total Bilirubin 0.50, Troponin I 1.810 H* 07/03/18 09:32: Lactic Acid 1.1 07/03/18 12:25: Troponin I 1.920 H* Rhythm: Sinus rhythm EKG: Sinus rhythm; low voltage QRS limb leads ECHO: As noted above CXR: As noted above Assessment/Plan 1. Non-ST segment elevation CT The etiology for his abnormal cardiac enzymes raise concern of underlying cardiovascular disease with a primary acute coronary syndrome. However at the same time other etiologies have to be considered. The patient has a history of pulmonary embolism on more than one occasion. It may be less likely he had a recurrent event with the lack of 1 dose of anticoagulant therapy, however, is still possible based on his past history. Thus it may not be unreasonable to further evaluate him for possible recurrent pulmonary embolism. There is been no obvious etiology for an acute CVA. He does not appear to be in acute renal insufficiency. He does not appear to be septic at this time. From a cardiac standpoint he will be treated medically which will include agents such as aspirin, antiplatelets, nitrates, beta-blockers, etc. as deemed appropriate. He has resumed anticoagulant therapy. It would not be unreasonable to consider further evaluation from a cardiac standpoint which would include a diagnostic cardiac catheterization. This would be to evaluate for CAD that would be amenable to percutaneous intervention that may assist with the patient's quality of life. He would not be a candidate for CT surgery based upon his diagnosis and his limited life expectancy per his machine fur cleaner/oncologist. Was discussed with the patient. The present time he will consider undergoing diagnostic cardiac catheterization and possible PCI for quality of life issues. In the interim it may not be unreasonable to reassess him for a possibility of a recurrent PE based on his past history. This can be accomplished with a chest CT scan with IV contrast. 2. Chest pain He does complain of chest pressure. He states this is been going on for a few nights. It does not radiate. He does have chronic shortness of breath/dyspnea. He is also been fatigued. It is unclear whether this symptom is cardiac or related to his other noncardiac issues such as his previous thromboembolic disease and her ongoing pleural-based disease process, etc. Thus he will continue evaluation care as noted above. 3. Hyperlipidemia He can continue evaluation care as deemed appropriate at this time. 4. Hypertension His blood pressure will be followed. He will continue medical adjustment as needed. 5. COPD He does have a history of underlying COPD. He is following with Dr. Mullen pulmonology. 6. 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 He recently underwent thoracentesis. He has a blood-tinged pleural effusion which raises concerns of a malignant pleural effusion. It may be related to his lung carcinoma. However, at the same time he also has a history of prostate carcinoma and thus contribution from this cannot be excluded. 7. Prostate carcinoma His hematology oncology notes it appears he also has a history of prostate carcinoma. Thus is unclear whether this may be contributing to his metastatic f indings as well. 8. Pulmonary embolism He has had pulmonary embolism on more than one occasion. This does raise a concern as to whether or not he could have had a recurrent recurrent acute PE that may explain his change in clinical course as well as his laboratory studies. Thus a chest CT can with IV contrast would not be unreasonable. Of note, the patient states that for the time being he is decided that he will receive no additional chemotherapy, etc., for his underlying carcinoma diagnosis and/or static disease. He states he was told that he may only have approximately 6 months to live. He notes at the present time he is more concerned about his quality of life and his quantity of life. Comment: The above was discussed with the patient and his significant other present. The patient's case has also been previously discussed with Dr. Higuera. This note was generated with [employer] software. It may contain incorrect words, spelling, and punctuation that were not noted in checking the note before signing.
[2018-07-03] MEDS: Clopidogrel Bisulfate 300 MG Tablet PO (15:04)
[2018-07-03 19:20] LABS: International Normalized Ratio 1.3; Prothrombin Time (Protime)PT. 16.3 SECONDS (11.7-14.9)
[2018-07-03 19:21] LABS: Partial Thromboplast Time 45.6 Seconds (24.1-36.2)
[2018-07-03] MEDS: HEPARIN/D5w 25,000 UNITS 25,000 UNITS/250 ML IV.SOLN. 12 UNITS IV (20:07)
[2018-07-03] MEDS: Metoprolol Tartrate 25 MG Tablet PO (21:33)
[2018-07-03] MEDS: Zolpidem Tartrate 5 MG Tablet PO (21:33)
[2018-07-03] MEDS: BENZOCAINE/MENTHOL 1 LOZENGE 2 LOZENGE MUCOUS MEM (21:33)
[2018-07-03] MEDS: 0.9% Normal Saline 1,000 ML 75 ML IV (23:25)
[2018-07-04] VITALS (14 sets, daily range): BP systolic 103–130; BP diastolic 64–80; PULSE 77–108; RESP 16–20; TEMP 36.6–37.8; O2SAT 95–97
[2018-07-04 02:32] LABS: Absolute Lymphocyte Count 0.63 X10^3/ul (0.83-4.51); Absolute Neutrophil Count 8.2 X10^3/uL (2.0-7.7); Basophil# 0.02 X10^3/uL; Basophil% 0.2 % (0-1); Eosinophil# 0.16 X10^3/uL; Eosinophils% 1.6 % (0-5); Hematocrit 26.7 % (40-54); Hemoglobin 8.5 g/dl (13.0-16.5); Lymphocyte # 0.63 X10^3/ul (4.0); Lymphocyte % 6.2 % (19-41); Mean Corp Hgb Conc 31.8 g/gl (32-36); Mean Corpuscular Hgb 29.4 pg (27.0-32.0); Mean Corpuscular Volume 92.4 fL (80-94); Mean Platelet Vol. 8.6 fl (6.2-12.0); Monocyte# 1.13 X10^3/uL; Monocyte% 11.1 % (0-10); Neutrophil # 8.22 X10^3/uL (2.7-7.7); Neutrophil % 80.6 % (47-70); Platelet Count 194 K/mm3 (150-450); RBC Distribution Width CV 15.6 % (11.6-14.6); RBC Distribution Width SD 52.3 fl (35.1-43.9); Red Blood Count 2.89 M/mm3 (4.6-6.2); White Blood Count 10.2 K/mm3 (4.4-11.0)
[2018-07-04 02:33] LABS: POSITIVE COUNT NO; POSITIVE DIFFERENTIAL NO; POSITIVE MORPHOLOGY NO
[2018-07-04 02:39] LABS: Partial Thromboplast Time 84.4 Seconds (24.1-36.2)
[2018-07-04 02:45] LABS: AST(SGOT) 43 U/L (15-37); Alanine Aminotransfer ALT/SGPT 28 U/L (16-61); Albumin, Serum 2.4 g/dL (3.2-5.0); Alkaline Phosphatase 126 U/L (45-117); Anion Gap 9 (5-15); BUN 13 mg/dL (7-18); BUN/Creat Ratio 14.5 RATIO (10-20); Bilirubin, Direct 0.11 mg/dL (0.00-0.30); Calcium,Total 7.9 mg/dL (8.5-10.1); Chloride 103 mmol/L (98-107); Cholesterol 165 mg/dL (200); EST Glomerular Filtration Rate 90 mL/min (>60); Est Glom Filt Rate - Afr Amer 109 mL/min (>60); Estimated Creatinine Clearance 84.49 ml/min; Globulin 4.8 g/dL (2.2-4.2); Glucose 124 mg/dL (74-106); High Density Lipoprotein 35 mg/dL; Potassium 3.9 mmol/L (3.5-5.1); Protein, Total 7.2 g/dL (6.4-8.2); Sodium Level 136 mmol/L (136-145); Triglycerides 108 mg/dL; Very Low Density Lipoprotein 22 mg/dL (5-40)
--- NOTE | 2018-07-04 05:55 | EKG12_ITS ---
Test Reason : AM EKG Blood Pressure : / mmHG Vent. Rate : 087 BPM Atrial Rate : 087 BPM P-R Int : 136 ms QRS Dur : 080 ms QT Int : 370 ms P-R-T Axes : 060 003 015 degrees QTc Int : 445 ms Normal sinus rhythm Low voltage QRS (limb leads) Confirmed by KAREN JOHNSON, TANGELA ([id number]), features editor MIR VANEGAS ([id number] on 07/08/2018 2:15:52 PM Referred By: DAMION Confirmed By:TANGELA JONES MD
--- NOTE | 2018-07-04 08:07 | PCM.CONS.GEN ---
Reason for Consult Date of Consultation: 07/04/18 Reason for Consultation: Lung cancer, left lower lobe consolidation History of Present Illness: The patient is a 67-year-old male, with a history as outlined below, who presented to the emergency department on July 03 with complaints of fatigue and abdominal pain. The patient has a known history of pulmonary adenocarcinoma, for which she underwent a left lower lobe lobectomy in July 2017 at the [facility]. The patient received adjuvant chemotherapy and had a follow-up CT scan in mid June followed by a PET/CT at the end of June, all of which revealed findings concerning for recurrent disease in the mediastinal lymph nodes, along with a pleural effusion. The patient was last seen by his oncology provider on July 01. The patient also has a known history of venous thromboembolic disease. He underwent an ultrasound-guided thoracentesis on July 02, during which time, 1.8 L of blood-tinged fluid was removed. Pleural fluid cytology is reportedly pending. On presentation to the emergency department, the patient was noted to be afebrile and hemodynamically stable. He was initially saturating 93% on room air. Laboratory evaluation revealed no evidence of a leukocytosis. Chemistry profile was largely unrevealing. Serum lactate was normal at 1.1. Troponin was elevated to 1.8. The patient was subsequently evaluated by cardiology due to the presence of a non-ST segment elevation AL. Past Medical History Past Medical History (Chronic Problems): Chronic Problems (Last Updated 07/03/18 @ 12:52 by Doc Higuera MD) COPD (chronic obstructive pulmonary disease) (Chronic) Prostate cancer (Chronic) surgery , R.T. 2014 PSA relapse 2016 ADT Multiple sclerosis (Chronic) left leg weakness Cancer of lower lobe of left lung (Chronic) Regional lymph node metastasis present (Chronic) Anemia (Chronic) Adenocarcinoma of lung (Chronic) Hyperlipidemia (Chronic) Hypertension (Chronic) History of prostatectomy (Chronic) 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) [facility] 07/03/17 Medical History: Medical History (Last Updated 07/03/18 @ 12:52 by Doc Higuera MD) Adenocarcinoma of lung (Chronic) C34.90 Hyperlipidemia (Chronic) E78.5 Hypertension (Chronic) I10 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) [facility] 07/03/17 BLOOD CLOT LUNGS Deep vein blood clot of left lower extremity I82.402 Deep vein blood clot of right lower extremity I82.401 Allergies morphine Adverse Reaction (Intermediate, Verified 07/03/18 09:12) MAKES HIS NAUSEATED AND SICK Home Medications: Ambulatory Orders Medication Instructions Recorded Leuprolide Acetate [Lupron Depot 3.75 mg IM Q90D #0 10/02/17 ([place])] Bisoprolol Fumarate [Zebeta] 10 mg PO DAILY #0 11/03/17 Handicap Placard #1 ea 02/18/18 Aspirin [Aspirin, Baby] 81 mg PO DAILY@0800 #30 tab.chew 04/01/18 enoxaparin 150 mg/mL subcutaneous 150 mg SC DAILY #30 ml 04/28/18 syringe albuterol sulfate concentrate 2.5 2.5 mg INHALATION Q4H PRN #180 ea 07/02/18 mg/0.5 mL solution for nebulization Surgical History: Surgical History (Last Updated 07/03/18 @ 12:52 by Doc Higuera MD) History of prostatectomy (Chronic) Z98.890, Z90.79 Surgical History: - - Left lower lobe resection. Prostatectomy. Psychiatric History: No pertinent psych hx Lives: Spouse/ Significant Other Smoking Status: Former smoker Alcohol: None, Rare Drugs: None - *Family History Maternal Family History: Family History (Last Reviewed 07/01/18 @ 12:53 by HAI Zamora) Father Prostate cancer Liver cancer Liver disease Mother Bone cancer History Items: No pertinent history Paternal Family History: Family History (Last Reviewed 07/01/18 @ 12:53 by HAI Zamora) Father Prostate cancer Liver cancer Liver disease Mother Bone cancer History Items: No pertinent history Review of Systems Constitutional: Reports: Malaise, Weakness, Fatigue Eyes: Denies: Blurred vision, Double vision HEENT: Denies: Head Aches, Sinus Congestion, Sinus Drainage Cardiovascular: Denies: Chest Pain, Palpitations Respiratory: Reports: Shortness of Breath. Denies: Cough Gastrointestinal: Reports: Abdominal Pain Genitourinary: Denies: Dysuria Musculoskeletal: Denies: Joint Pain, Joint Tenderness Skin: Denies: Rash, Wounds Neurological: Denies: Numbness, Tingling, Focal weakness Psychiatric: Denies: Anxiety, Depression, Homicidal Ideations, Suicidal Ideations Hematologic/ Lymphatic: Denies: Easy Bruising, Easy Bleeding Patient Problems: Active and Suspected Problems (Last Updated 07/03/18 @ 12:52 by Doc Higuera MD) NSTEMI (non-ST elevated myocardial infarction) (Acute) Chest pain (Acute) Objective: The patient's most recent lab work, culture data and imaging studies have all been personally reviewed. - Physical Exam General: Alert, Cooperative, No apparent distress HEENT: Atraumatic, PERRLA, Normocephalic Oral: No Gingival or Mucosal Lesions/ Ulcerations Neck: Supple, No Nodes, Trachea Midline Lungs: No rhonchi, No wheeze, No rales, Diminished Cardiovascular: Regular rate, Regular Rhythm, Normal S1, Normal S2, No murmurs Abdomen: Bowel Sounds Present, Soft, Non Tender Extremities: No clubbing, No cyanosis, No edema Skin: No breakdown Musculoskeletal: No Tenderness to Palpation of Joints or Extremities Lymphatic: No Cervical, Supraclavicular, or Inguinal Adenopathy Neurological: Cranial nerves II-XII grossly intact, Neuro grossly intact Psych/Mental Status: Alert and oriented to time, place, person, mood and affect Vital Signs Temp Pulse Resp BP Pulse Ox 37.0 C 85 18 103/64 96 07/04/18 03:10 07/04/18 07:03 07/04/18 03:10 07/04/18 03:10 07/04/18 03:10 Oxygen Flow Rate (L/min) 2 Oxygen Delivery Method Room Air Weight: 185 lb 13.595 oz Body Mass Index (BMI) 26.6 Intake and Output for Last 24 Hours 07/02/18 07/03/18 07/04/18 23:59 23:59 23:59 Intake Total 484 / 484 646 / 646 Balance 484 / 484 646 / 646 Laboratory Tests Past 24 Hrs 07/03/18 07/03/18 07/03/18 09:15 09:15 09:32 WBC 9.9 RBC 3.18 L Hgb 9.7 L Hct 30.1 L MCV 94.7 H MCH 30.5 MCHC 32.2 RDW 15.2 H RDW Differential 50.5 H Plt Count 207 MPV 8.6 Immature Gran % (Auto) 0.700 Neut % (Auto) 80.6 H Lymph % (Auto) 9.6 L [place] % (Auto) 8.4 Eos % (Auto) 0.5 Baso % (Auto) 0.2 Absolute Neuts (auto) 8.0 H Absolute Lymphs (auto) 0.95 Total Counted Not Reportable PT INR APTT Sodium 137 Potassium 4.1 Chloride 103 Carbon Dioxide 26.0 Anion Gap 8 BUN 16 Creatinine 1.08 Estim Creat Clear Calc 70.41 Est GFR (MDRD) Af Amer 88 Est GFR (MDRD) Non-Af 73 BUN/Creatinine Ratio 14.8 Glucose 114 H Lactic Acid 1.1 Calcium 8.3 L Total Bilirubin 0.50 Direct Bilirubin AST 39 H ALT 35 Alkaline Phosphatase 135 H Troponin I 1.810 H* Total Protein 7.9 Albumin 2.7 L Globulin 5.2 H Albumin/Globulin Ratio 0.5 L Triglycerides Cholesterol LDL Cholesterol VLDL Cholesterol HDL Cholesterol Lipase 70 L 07/03/18 07/03/18 07/03/18 12:25 15:12 18:57 WBC RBC Hgb Hct MCV MCH MCHC RDW RDW Differential Plt Count MPV Immature Gran % (Auto) Neut % (Auto) Lymph % (Auto) Garden % (Auto) Eos % (Auto) Baso % (Auto) Absolute Neuts (auto) Absolute Lymphs (auto) Total Counted PT 16.3 H INR 1.3 APTT 45.6 H Sodium Potassium Chloride Carbon Dioxide Anion Gap BUN Creatinine Estim Creat Clear Calc Est GFR (MDRD) Af Amer Est GFR (MDRD) Non-Af BUN/Creatinine Ratio Glucose Lactic Acid Calcium Total Bilirubin Direct Bilirubin AST ALT Alkaline Phosphatase Troponin I 1.920 H* 1.770 H* Total Protein Albumin Globulin Albumin/Globulin Ratio Triglycerides Cholesterol LDL Cholesterol VLDL Cholesterol HDL Cholesterol Lipase 07/04/18 07/04/18 07/04/18 02:15 02:15 02:15 WBC 10.2 RBC 2.89 L Hgb 8.5 L Hct 26.7 L MCV 92.4 MCH 29.4 MCHC 31.8 L RDW 15.6 H RDW Differential 52.3 H Plt Count 194 MPV 8.6 Immature Gran % (Auto) 0.300 Neut % (Auto) 80.6 H Lymph % (Auto) 6.2 L Garden % (Auto) 11.1 H Eos % (Auto) 1.6 Baso % (Auto) 0.2 Absolute Neuts (auto) 8.2 H Absolute Lymphs (auto) 0.63 L Total Counted Not Reportable PT INR APTT 84.4 H Sodium 136 Potassium 3.9 Chloride 103 Carbon Dioxide 24.0 Anion Gap 9 BUN 13 Creatinine 0.90 Estim Creat Clear Calc 84.49 Est GFR (MDRD) Af Amer 109 Est GFR (MDRD) Non-Af 90 BUN/Creatinine Ratio 14.5 Glucose 124 H Lactic Acid Calcium 7.9 L Total Bilirubin 0.40 Direct Bilirubin 0.11 AST 43 H ALT 28 Alkaline Phosphatase 126 H Troponin I Total Protein 7.2 Albumin 2.4 L Globulin 4.8 H Albumin/Globulin Ratio Triglycerides 108 Cholesterol 165 LDL Cholesterol 108 VLDL Cholesterol 22 HDL Cholesterol 35 L Lipase Clinical Impression(s) from Imaging Studies Abdomen/Pelvis CT 07/03/18 09:21 IMPRESSION: Worsening consolidations and effusions at the left lung base and nodular changes at the right lung base. Partially visualized right hilar and subcarinal lymphadenopathy. Bilateral renal cysts. Electronically Signed: Fritz Lee, at 10:19 EST Tel , Service support , Chest X-Ray 07/03/18 09:21 IMPRESSION: Stable-appearing consolidation and effusion at the left lung base. Electronically Signed: Fritz Lee, at 10:34 EST Tel , Service support , Chest CTA 07/03/18 14:04 IMPRESSION: 1. Stable multiple moderate size left pleural effusion. A few gas bubbles now present in the fluid along the posterolateral left mid chest, raising concern of evolving empyema. There is stable partial collapse of the left lower lobe. 2. Worsened infrahilar right base peribronchial thickening and ill-defined stranding of inflammatory change or volume loss/crowding. Stable 7 mm nodule in the posterior peripheral right lower lobe. Occasional calcified granulomata also noted. 3. Grossly stable mediastinal, subcarinal, and right hilar lymphadenopathy, with confluent soft tissue density encasing the central right bronchovascular structures. 4. Incompletely occlusive thrombus in the right lower lobe pulmonary artery has progressed into the segmental right lower lobe branches. This likely reflects local disease secondary to stasis of flow rather than acute pulmonary embolus. Electronically Signed: Collin Michael MD at 17:19 EST , Service support , ADDENDUM: 07/03/18 0579 Assessment/Plan All Active Problems (Last Updated 07/03/18 @ 12:52 by Doc Higuera MD) NSTEMI (non-ST elevated myocardial infarction) (Acute) Chest pain (Acute) Bone metastases (Acute) Pleural effusion, malignant (Acute) RECOMMENDATIONS: 1. Await cytology results from the patient's recent thoracentesis. 2. Continue bronchodilators. 3. Continue heparin drip for now. 4. Medical management of NSTEMI per cardiology recommendations. IMPRESSIONS: 1. History of non-small cell lung cancer with concern for recurrence/concern for malignant pleural effusion The patient is currently active with oncology and recently underwent a thoracentesis. We are waiting cytology results to confirm a suspected diagnosis of malignant pleural effusion. If the patient's effusion is found to be positive for malignant cells, this would make him automatically a stage IV cancer patient. I am less concerned about the possibility of empyema, as I feel that the gas bubbles noted in the pleural effusion are likely the consequence of his recent thoracentesis. Consideration for any additional cancer treatment will need to be undertaken by oncology. Consultation to oncology is currently pending. 2. Venous thromboembolic disease The patient is currently on a heparin drip, having been transitioned from his outpatient Lovenox. However, the patient's Lovenox had been transiently discontinued to allow for the patient's recent thoracentesis. 3. History of COPD The patient currently follows with Dr. Mullen on an outpatient basis. Continue scheduled bronchodilators. 4. Non-ST segment elevation AL The patient is currently being followed by cardiology. Would strongly recommend holding off on any potential cardiac catheterization until the patient's pleural fluid cytology has returned. If the patient does have a malignant pleural effusion that continues to accumulate, he may be a candidate for Pleurx catheter placement, which would be hindered by have any stent placed and started on antiplatelet therapy. 5. Hypertension/hyperlipidemia/personal history of prostate CA Complicates care, management, recovery and prognosis. Likely okay to continue home medications as indicated. This note was generated with Dragon dictation software. It may contain incorrect words, spelling, and punctuation that were not noted in checking the note before signing. Code Visit Inpatient E&M: 23751 Init Hosp L3
[2018-07-04] MEDS: Metoprolol Tartrate 25 MG Tablet PO ×2 (08:31→21:26)
[2018-07-04] MEDS: Aspirin 81 MG TAB.CHEW PO (08:31)
--- NOTE | 2018-07-04 08:31 | PCM.PROGNOTE ---
Patient Problems: Active and Suspected Problems (Last Updated 07/03/18 @ 12:52 by Doc Higuera MD) NSTEMI (non-ST elevated myocardial infarction) (Acute) Chest pain (Acute) Bone metastases (Acute) Pleural effusion, malignant (Acute) Subjective: Chief complaint: Follow-up after admission for acute non-ST elevation GA and abdominal pain of unclear etiology. Patient seen and examined. No acute events overnight. Today, he has no more abdominal pain. Denied nausea or vomiting. Denied constipation or diarrhea. No chest pain or shortness of breath. He had a CTA chest last night that revealed gas bubbles in the left pleural effusion raising concern for evolving empyema, incompletely occlusive thrombus in the right lower lobe which has progressed into the segmental right lower lobe branches which could be due to local disease secondary to stasis of flow other than acute PE. He was started on IV heparin drip last night. - Physical Exam General: Alert, Oriented x3, Cooperative, No apparent distress HEENT: Atraumatic, PERRLA, EOMI, Normocephalic Oral: Moist Mucosa, No Gingival or Mucosal Lesions/ Ulcerations Neck: Supple, No JVD, Negative Carotid Bruits, Trachea Midline, Thyroid Normal Size and Texture Lungs: No wheeze, No rales, Diminished, Rhonchi, - - Decreased breath sounds bilateral, more on the left base, scattered rhonchi. Cardiovascular: Regular rate, Regular Rhythm, Normal S1, Normal S2, PMI Normal Abdomen: Bowel Sounds Present, Soft, Non Tender, Non-Distended, No Hepato-splenomegaly Extremities: No clubbing, No cyanosis, No edema Skin: No rashes, No breakdown Lymphatic: No Cervical, Supraclavicular, or Inguinal Adenopathy Neurological: Cranial nerves II-XII grossly intact, Neuro grossly intact Psych/Mental Status: Normal Affect, Appropriate, Alert and oriented to time, place, person, mood and affect Vital Signs Temp Pulse Resp BP Pulse Ox 98.1 F 93 16 124/74 H 97 07/04/18 08:26 07/04/18 08:26 07/04/18 08:26 07/04/18 08:26 07/04/18 08:26 Oxygen Flow Rate (L/min) 2 Oxygen Delivery Method Nasal Cannula Weight: 185 lb 13.595 oz Body Mass Index (BMI) 26.6 Intake and Output for Last 24 Hours 07/02/18 07/03/18 07/04/18 23:59 23:59 23:59 Intake Total 484 / 484 646 / 646 Balance 484 / 484 646 / 646 Laboratory Tests Past 24 Hrs 07/03/18 07/03/18 07/03/18 09:15 09:15 09:32 WBC 9.9 RBC 3.18 L Hgb 9.7 L Hct 30.1 L MCV 94.7 H MCH 30.5 MCHC 32.2 RDW 15.2 H RDW Differential 50.5 H Plt Count 207 MPV 8.6 Immature Gran % (Auto) 0.700 Neut % (Auto) 80.6 H Lymph % (Auto) 9.6 L [place] % (Auto) 8.4 Eos % (Auto) 0.5 Baso % (Auto) 0.2 Absolute Neuts (auto) 8.0 H Absolute Lymphs (auto) 0.95 Total Counted Not Reportable PT INR APTT Sodium 137 Potassium 4.1 Chloride 103 Carbon Dioxide 26.0 Anion Gap 8 BUN 16 Creatinine 1.08 Estim Creat Clear Calc 70.41 Est GFR (MDRD) Af Amer 88 Est GFR (MDRD) Non-Af 73 BUN/Creatinine Ratio 14.8 Glucose 114 H Lactic Acid 1.1 Calcium 8.3 L Total Bilirubin 0.50 Direct Bilirubin AST 39 H ALT 35 Alkaline Phosphatase 135 H Troponin I 1.810 H* Total Protein 7.9 Albumin 2.7 L Globulin 5.2 H Albumin/Globulin Ratio 0.5 L Triglycerides Cholesterol LDL Cholesterol VLDL Cholesterol HDL Cholesterol Lipase 70 L 07/03/18 07/03/18 07/03/18 12:25 15:12 18:57 WBC RBC Hgb Hct MCV MCH MCHC RDW RDW Differential Plt Count MPV Immature Gran % (Auto) Neut % (Auto) Lymph % (Auto) [place] % (Auto) Eos % (Auto) Baso % (Auto) Absolute Neuts (auto) Absolute Lymphs (auto) Total Counted PT 16.3 H INR 1.3 APTT 45.6 H Sodium Potassium Chloride Carbon Dioxide Anion Gap BUN Creatinine Estim Creat Clear Calc Est GFR (MDRD) Af Amer Est GFR (MDRD) Non-Af BUN/Creatinine Ratio Glucose Lactic Acid Calcium Total Bilirubin Direct Bilirubin AST ALT Alkaline Phosphatase Troponin I 1.920 H* 1.770 H* Total Protein Albumin Globulin Albumin/Globulin Ratio Triglycerides Cholesterol LDL Cholesterol VLDL Cholesterol HDL Cholesterol Lipase 07/04/18 07/04/18 07/04/18 02:15 02:15 02:15 WBC 10.2 RBC 2.89 L Hgb 8.5 L Hct 26.7 L MCV 92.4 MCH 29.4 MCHC 31.8 L RDW 15.6 H RDW Differential 52.3 H Plt Count 194 MPV 8.6 Immature Gran % (Auto) 0.300 Neut % (Auto) 80.6 H Lymph % (Auto) 6.2 L [place] % (Auto) 11.1 H Eos % (Auto) 1.6 Baso % (Auto) 0.2 Absolute Neuts (auto) 8.2 H Absolute Lymphs (auto) 0.63 L Total Counted Not Reportable PT INR APTT 84.4 H Sodium 136 Potassium 3.9 Chloride 103 Carbon Dioxide 24.0 Anion Gap 9 BUN 13 Creatinine 0.90 Estim Creat Clear Calc 84.49 Est GFR (MDRD) Af Amer 109 Est GFR (MDRD) Non-Af 90 BUN/Creatinine Ratio 14.5 Glucose 124 H Lactic Acid Calcium 7.9 L Total Bilirubin 0.40 Direct Bilirubin 0.11 AST 43 H ALT 28 Alkaline Phosphatase 126 H Troponin I Total Protein 7.2 Albumin 2.4 L Globulin 4.8 H Albumin/Globulin Ratio Triglycerides 108 Cholesterol 165 LDL Cholesterol 108 VLDL Cholesterol 22 HDL Cholesterol 35 L Lipase Clinical Impression(s) from Imaging Studies Abdomen/Pelvis CT 07/03/18 09:21 IMPRESSION: Worsening consolidations and effusions at the left lung base and nodular changes at the right lung base. Partially visualized right hilar and subcarinal lymphadenopathy. Bilateral renal cysts. Electronically Signed: Fritz Lee, at 10:19 EST Tel , Service support , Chest X-Ray 07/03/18 09:21 IMPRESSION: Stable-appearing consolidation and effusion at the left lung base. Electronically Signed: Fritz Lee, at 10:34 EST Tel , Service support , Chest CTA 07/03/18 14:04 IMPRESSION: 1. Stable multiple moderate size left pleural effusion. A few gas bubbles now present in the fluid along the posterolateral left mid chest, raising concern of evolving empyema. There is stable partial collapse of the left lower lobe. 2. Worsened infrahilar right base peribronchial thickening and ill-defined stranding of inflammatory change or volume loss/crowding. Stable 7 mm nodule in the posterior peripheral right lower lobe. Occasional calcified granulomata also noted. 3. Grossly stable mediastinal, subcarinal, and right hilar lymphadenopathy, with confluent soft tissue density encasing the central right bronchovascular structures. 4. Incompletely occlusive thrombus in the right lower lobe pulmonary artery has progressed into the segmental right lower lobe branches. This likely reflects local disease secondary to stasis of flow rather than acute pulmonary embolus. Electronically Signed: Collin Michael MD at 17:19 EST , Service support , ADDENDUM: 07/03/18 1729 Medical Necessity - Tobacco Use Smoking Status: Former smoker Assessment/Plan All Active Problems (Last Updated 07/03/18 @ 12:52 by Doc Higuera MD) NSTEMI (non-ST elevated myocardial infarction) (Acute) Chest pain (Acute) Bone metastases (Acute) Pleural effusion, malignant (Acute) This is a 67 years old male patient presented to the emergency room because of vague abdominal pain and fatigue, found to have elevated troponin consistent with acute non-ST elevation GA without evidence of acute ischemic changes on EKG. #1 acute non-ST elevation GA: He is on aspirin, metoprolol. Troponins are trending down. Repeat EKG showed no acute ischemic changes. 2D echocardiogram ordered. Cardiology on the case. He had 2D echocardiogram on June 18, 2018 and revealed normal LV size and function, ejection fraction of 60%, stage II diastolic dysfunction. Giving the entire situation with history of recurrent lung cancer, probable worsening of right lung PE, it is appropriate to find out what would be the plan about the cancer. #2 occlusive thrombus of the right lower pulmonary artery/PE: Although patient was on therapeutic Lovenox. CTA chest revealed incompletely occlusive thrombus of the right lower lobe pulmonary artery which could be local disease secondary to stasis versus acute pulmonary embolus. Subcu Lovenox discontinued, started on IV heparin. So far, her respiratory status are stable. Plan to continue IV heparin for now, pulmonology consulted. #3 left pleural effusion: Malignant, status post left thoracentesis that was done yesterday. No pleural fluid analysis done on July 02, 2018. CTA chest revealed gas bubbles in the left pleural effusion which raise concern for lung empyema. At this time, no clinical evidence of infections either pneumonia or empyema at this time. Patient has no cough or sputum production, afebrile, no leukocytosis. Pulmonology consulted. Plan to consult oncology as well. #4 history of adenocarcinoma of the lung: Status post resection of the left lower lobe, status post chemotherapy. He had a PET scan done recently that revealed increased glucose uptake in the mediastinum and pre-hilum suggestive of viable neoplasm. We will consult oncology. #5 history of prostate cancer: Status post prostatectomy, on leuprolide. Stable, continue same medications. #6 hypertension: Blood pressure stable, continue bisoprolol. #7 history of recurrent DVTs/PEs: Started on IV heparin drip, Lovenox discontinued.. #8 DVT prophylaxis: He is on IV heparin drip. This note was generated with [employer] dictation software. It may contain incorrect words, spelling, and punctuation that were not noted in checking the note before signing. Code Visit Inpatient E&M: 24767 [facility] Hosp L3
--- NOTE | 2018-07-04 08:34 | PN_ITS ---
Patient Problems: Active and Suspected Problems (Last Updated 07/03/18 @ 12:52 by Doc Higuera MD) NSTEMI (non-ST elevated myocardial infarction) (Acute) Chest pain (Acute) Bone metastases (Acute) Pleural effusion, malignant (Acute) Subjective: Chief complaint: Follow-up after admission for acute non-ST elevation IL and abd ominal pain of unclear etiology. Patient seen and examined. No acute events overnight. Today, he has no more abdominal pain. Denied nausea or vomiting. Denied constipation or diarrhea. No chest pain or shortness of breath. He had a CTA chest last night that revealed gas bubbles in the left pleural effusion raising concern for evolving empyema, incompletely occlusive thrombus in the right lower lobe which has progressed into the segmental right lower lobe branches which could be due to local disease secondary to stasis of flow other than acute PE. He was started on IV heparin drip last night. - Physical Exam General: Alert, Oriented x3, Cooperative, No apparent distress HEENT: Atraumatic, PERRLA, EOMI, Normocephalic Oral: Moist Mucosa, No Gingival or Mucosal Lesions/ Ulcerations Neck: Supple, No JVD, Negative Carotid Bruits, Trachea Midline, Thyroid Normal Size and Texture Lungs: No wheeze, No rales, Diminished, Rhonchi, - - Decreased breath sounds bilateral, more on the left base, scattered rhonchi. Cardiovascular: Regular rate, Regular Rhythm, Normal S1, Normal S2, PMI Normal Abdomen: Bowel Sounds Present, Soft, Non Tender, Non-Distended, No Hepato- splenomegaly Extremities: No clubbing, No cyanosis, No edema Skin: No rashes, No breakdown Lymphatic: No Cervical, Supraclavicular, or Inguinal Adenopathy Neurological: Cranial nerves II-XII grossly intact, Neuro grossly intact Psych/Mental Status: Normal Affect, Appropriate, Alert and oriented to time, vincent ce, person, mood and affect Vital Signs Temp Pulse Resp BP Pulse Ox 98.1 F 93 16 124/74 H 97 07/04/18 08:26 18 08:26 07/04/18 08:26 07/04/18 08:26 07/04/18 08:26 Oxygen Flow Rate (L/min) 2 Oxygen Delivery Method Nasal Cannula Weight: 185 lb 13.595 oz Body Mass Index (BMI) 26.6 Intake and Output for Last 24 Hours 07/02/18 07/03/18 07/04/18 23:59 23:59 23:59 Intake Total 484 / 484 646 / 646 Balance 484 / 484 646 / 646 Laboratory Tests Past 24 Hrs 07/03/18 07/03/18 07/03/18 09:15 09:15 09:32 WBC 9.9 RBC 3.18 L Hgb 9.7 L Hct 30.1 L MCV 94.7 H MCH 30.5 MCHC 32.2 RDW 15.2 H RDW Differential 50.5 H Plt Count 207 MPV 8.6 Immature Gran % (Auto) 0.700 Neut % (Auto) 80.6 H Lymph % (Auto) 9.6 L [place] % (Auto) 8.4 Eos % (Auto) 0.5 Baso % (Auto) 0.2 Absolute Neuts (auto) 8.0 H Absolute Lymphs (auto) 0.95 Total Counted Not Reportable PT INR APTT Sodium 137 Potassium 4.1 Chloride 103 Carbon Dioxide 26.0 Anion Gap 8 BUN 16 Creatinine 1.08 Estim Creat Clear Calc 70.41 Est GFR (MDRD) Af Amer 88 Est GFR (MDRD) Non-Af 73 BUN/Creatinine Ratio 14.8 Glucose 114 H Lactic Acid 1.1 Calcium 8.3 L Total Bilirubin 0.50 Direct Bilirubin AST 39 H ALT 35 Alkaline Phosphatase 135 H Troponin I 1.810 H* Total Protein 7.9 Albumin 2.7 L Globulin 5.2 H Albumin/Globulin Ratio 0.5 L Triglycerides Cholesterol LDL Cholesterol VLDL Cholesterol HDL Cholesterol Lipase 70 L 07/03/18 07/03/18 07/03/18 12:25 15:12 18:57 WBC RBC Hgb Hct MCV MCH MCHC RDW RDW Differential Plt Count MPV Immature Gran % (Auto) Neut % (Auto) Lymph % (Auto) [place] % (Auto) Eos % (Auto) Baso % (Auto) Absolute Neuts (auto) Absolute Lymphs (auto) Total Counted PT 16.3 H INR 1.3 APTT 45.6 H Sodium Potassium Chloride Carbon Dioxide Anion Gap BUN Creatinine Estim Creat Clear Calc Est GFR (MDRD) Af Amer Est GFR (MDRD) Non-Af BUN/Creatinine Ratio Glucose Lactic Acid Calcium Total Bilirubin Direct Bilirubin AST ALT Alkaline Phosphatase Troponin I 1.920 H* 1.770 H* Total Protein Albumin Globulin Albumin/Globulin Ratio Triglycerides Cholesterol LDL Cholesterol VLDL Cholesterol HDL Cholesterol Lipase 07/04/18 07/04/18 07/04/18 02:15 02:15 02:15 WBC 10.2 RBC 2.89 L Hgb 8.5 L Hct 26.7 L MCV 92.4 MCH 29.4 MCHC 31.8 L RDW 15.6 H RDW Differential 52.3 H Plt Count 194 MPV 8.6 Immature Gran % (Auto) 0.300 Neut % (Auto) 80.6 H Lymph % (Auto) 6.2 L [place] % (Auto) 11.1 H Eos % (Auto) 1.6 Baso % (Auto) 0.2 Absolute Neuts (auto) 8.2 H Absolute Lymphs (auto) 0.63 L Total Counted Not Reportable PT INR APTT 84.4 H Sodium 136 Potassium 3.9 Chloride 103 Carbon Dioxide 24.0 Anion Gap 9 BUN 13 Creatinine 0.90 Estim Creat Clear Calc 84.49 Est GFR (MDRD) Af Amer 109 Est GFR (MDRD) Non-Af 90 BUN/Creatinine Ratio 14.5 Glucose 124 H Lactic Acid Calcium 7.9 L Total Bilirubin 0.40 Direct Bilirubin 0.11 AST 43 H ALT 28 Alkaline Phosphatase 126 H Troponin I Total Protein 7.2 Albumin 2.4 L Globulin 4.8 H Albumin/Globulin Ratio Triglycerides 108 Cholesterol 165 LDL Cholesterol 108 VLDL Cholesterol 22 HDL Cholesterol 35 L Lipase Clinical Impression(s) from Imaging Studies Abdomen/Pelvis CT 07/03/18 09:21 IMPRESSION: Worsening consolidations and effusions at the left lung base and nodular changes at the right lung base. Partially visualized right hilar and subcarinal lymphadenopathy. Bilateral renal cysts. Electronically Signed: Fritz Lee, at 10:19 EST Tel , Service support , Chest X-Ray 07/03/18 09:21 IMPRESSION: Stable-appearing consolidation and effusion at the left lung base. Electronically Signed: Fritz Lee, at 10:34 EST Tel , Service support , Chest CTA 07/03/18 14:04 IMPRESSION: 1. Stable multiple moderate size left pleural effusion. A few gas bubbles now present in the fluid along the posterolateral left mid chest, raising concern of evolving empyema. There is stable partial collapse of the left lower lobe. 2. Worsened infrahilar right base peribronchial thickening and ill-defined stranding of inflammatory change or volume loss/crowding. Stable 7 mm nodule in the posterior peripheral right lower lobe. Occasional calcified granulomata also noted. 3. Grossly stable mediastinal, subcarinal, and right hilar lymphadenopathy, with confluent soft tissue density encasing the central right bronchovascular structures. 4. Incompletely occlusive thrombus in the right lower lobe pulmonary artery has progressed into the segmental right lower lobe branches. This likely reflects local disease secondary to stasis of flow rather than acute pulmonary embolus. Electronically Signed: Collin Michael MD at 17:19 EST , Service support , ADDENDUM: 07/03/18 1729 Medical Necessity - Tobacco Use Smoking Status: Former smoker Assessment/Plan All Active Problems (Last Updated 07/03/18 @ 12:52 by Doc Higuera MD) NSTEMI (non-ST elevated myocardial infarction) (Acute) Chest pain (Acute) Bone metastases (Acute) Pleural effusion, malignant (Acute) This is a 67 years old male patient presented to the emergency room because of vague abdominal pain and fatigue, found to have elevated troponin consistent with acute non-ST elevation IL without evidence of acute ischemic changes on EKG. #1 acute non-ST elevation IL: He is on aspirin, metoprolol. Troponins are trending down. Repeat EKG showed no acute ischemic changes. 2D echocardiogram ordered. Cardiology on the case. He had 2D echocardiogram on June 18, 2018 and revealed normal LV size and function, ejection fraction of 60%, stage II diastolic dysfunction. Giving the entire situation with history of recurrent lung cancer, probable worsening of right lung PE, it is appropriate to find out what would be the plan about the cancer. #2 occlusive thrombus of the right lower pulmonary artery/PE: Although patient was on therapeutic Lovenox. CTA chest revealed incompletely occlusive thrombus of the right lower lobe pulmonary artery which could be local disease secondary to stasis versus acute pulmonary embolus. Subcu Lovenox discontinued, started on IV heparin. So far, her respiratory status are stable. Plan to continue IV heparin for now, pulmonology consulted. #3 left pleural effusion: Malignant, status post left thoracentesis that was done yesterday. No pleural fluid analysis done on July 02, 2018. CTA chest revealed gas bubbles in the left pleural effusion which raise concern for lung empyema. At this time, no clinical evidence of infections either pneumonia or empyema at this time. Patient has no cough or sputum production, afebrile, no leukocytosis. Pulmonology consulted. Plan to consult oncology as well. #4 history of adenocarcinoma of the lung: Status post resection of the left lower lobe, status post chemotherapy. He had a PET scan done recently that revealed increased glucose uptake in the mediastinum and pre-hilum suggestive of viable neoplasm. We will consult oncology. #5 history of prostate cancer: Status post prostatectomy, on leuprolide. Stable, continue same medications. #6 hypertension: Blood pressure stable, continue bisoprolol. #7 history of recurrent DVTs/PEs: Started on IV heparin drip, Lovenox discontinued.. #8 DVT prophylaxis: He is on IV heparin drip. This note was generated with [id number] dictation software. It may contain incorrect words, spelling, and punctuation that were not noted in checking the note before signing. Code Visit Inpatient E&M: 24798 [facility] Hosp L3
--- NOTE | 2018-07-04 13:12 | PCM.PN.CARD ---
Subjectve: The patient denies any ongoing chest discomfort. He has chronic shortness of breath/dyspnea and fatigue. Objective: Vital Signs Temp Pulse Resp BP Pulse Ox 98.1 F 89 16 124/74 H 97 07/04/18 08:26 07/04/18 10:59 07/04/18 08:26 07/04/18 08:26 07/04/18 08:26 Oxygen Flow Rate (L/min) 2 Oxygen Delivery Method Nasal Cannula Weight: 185 lb 13.595 oz Body Mass Index (BMI) 26.6 Intake and Output for Last 24 Hours 07/02/18 07/03/18 07/04/18 23:59 23:59 23:59 Intake Total 484 / 484 646 / 646 Balance 484 / 484 646 / 646 General: Awake, Alert, Oriented x 3, Cooperative, No Acute Distress HEENT: Atraumatic, Normocephalic, PERRL, EOMI, Sclera Non Icteric Neck: Supple, Good ROM, No JVD Lungs: Diminished Left Base Cardiovascular: Regular Rhythm, Normal S1, Normal S2 Abdomen: Bowel Sounds Present, Soft, Non Tender Extremities: No Cyanosis, No Clubbing, No edema Psych/Mental Status: Appropriate 07/03/18 15:12: Troponin I 1.770 H* 07/03/18 18:57: PT 16.3 H, INR 1.3, APTT 45.6 H 07/04/18 02:15: WBC 10.2, RBC 2.89 L, Hgb 8.5 L, Hct 26.7 L, MCV 92.4, MCH 29.4, MCHC 31.8 L, RDW 15.6 H, RDW Differential 52.3 H, Plt Count 194, MPV 8.6, Immature Gran % (Auto) 0.300, Neut % (Auto) 80.6 H, Lymph % (Auto) 6.2 L, [place] % (Auto) 11.1 H, Eos % (Auto) 1.6, Baso % (Auto) 0.2, Absolute Neuts (auto) 8.2 H, Total Counted Not Reportable 07/04/18 02:15: Sodium 136, Potassium 3.9, Chloride 103, Carbon Dioxide 24.0, Anion Gap 9, BUN 13, Creatinine 0.90, Est GFR (MDRD) Af Amer 109, Est GFR (MDRD) Non-Af 90, BUN/Creatinine Ratio 14.5, Glucose 124 H, Calcium 7.9 L, Total Bilirubin 0.40, Direct Bilirubin 0.11, Triglycerides 108, Cholesterol 165, LDL Cholesterol 108, VLDL Cholesterol 22, HDL Cholesterol 35 L 07/04/18 02:15: APTT 84.4 H 07/04/18 08:46: APTT 75.0 H Rhythm: Sinus rhythm EKG: Sinus rhythm; low voltage QRS limb leads CA: No acute ECG changes Medical Necessity - Tobacco Use Smoking Status: Former smoker Assessment/Plan 1. Non-ST segment elevation CA The etiology for his abnormal cardiac enzymes raise concern of underlying cardiovascular disease with a primary acute coronary syndrome. The patient has been reevaluated for the possibility of an acute PE superimposed upon his chronic PEs. Based upon the radiology report it appears that there is still concern of his chronic PEs but no obvious new acute PE. There is been no obvious etiology for an acute CVA. He does not appear to be in acute renal insufficiency. He does not appear to be septic at this time. From a cardiac standpoint he will be treated medically which will include agents such as aspirin, antiplatelets, nitrates, beta-blockers, etc. as deemed appropriate. He has resumed anticoagulant therapy. It would not be unreasonable to consider further evaluation from a cardiac standpoint which would include a diagnostic cardiac catheterization. This would be to evaluate for CAD that would be amenable to percutaneous intervention that may assist with the patient's quality of life. He would not be a candidate for CT surgery based upon his diagnosis and his limited life expectancy per his nitrate operator/oncologist. In the interim he has also been evaluated by pulmonology. There is a concern that he may need, based upon recurrent pleural effusions thought to be malignant, a Pleurx catheter placement. Pulmonology is considering this although would prefer this being done prior to the patient on sustained antiplatelet therapy that could not be interrupted, etc. Thus at the present time the patient will continue to be monitored. He will continue medical management. He will continue aspirin therapy without additional antiplatelet therapy. Depending upon the results of his thoracentesis, if he does need to proceed with a Pleurx catheter placement, then pulmonology will consider this. Once that occurs then the patient can consider proceeding with further evaluation in the cardiac catheterization laboratory, etc. 2. Hyperlipidemia He can continue evaluation care as deemed appropriate at this time. 3. Hypertension His blood pressure will be followed. He will continue medical adjustment as needed. 4. COPD He does have a history of underlying COPD. He is following with Dr. Mullen pulmonology. 5. 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 He recently underwent thoracentesis. He has a blood-tinged pleural effusion which raises concerns of a malignant pleural effusion. It may be related to his lung carcinoma. However, at the same time he also has a history of prostate carcinoma and thus contribution from this cannot be excluded. Again he is being considered by pulmonology for a possible Pleurx catheter placement. This depends upon the results of his thoracentesis and further recommendations by pulmonology. 6. Prostate carcinoma His hematology oncology notes it appears he also has a history of prostate carcinoma. Thus is unclear whether this may be contributing to his metastatic findings as well. 7. Pulmonary embolism He has had pulmonary embolism on more than one occasion. Based upon his CT scan it appears he has evidence of his previous pulmonary emboli without new acute pulmonary emboli. Of note, the patient states that for the time being he is decided that he will receive no additional chemotherapy, etc., for his underlying carcinoma diagnosis and/or static disease. He states he was told that he may only have approximately 6 months to live. He notes at the present time he is more concerned about his quality of life and his quantity of life. Based upon this, he may also decide not to pursue any additional aggressive evaluation or care and opt for hospice therapy. Comment: The above was discussed with the patient and his spouse, and Dr. Mock of pulmonology/critical care medicine. This note was generated with [employer] software. It may contain incorrect words, spelling, and punctuation that were not noted in checking the note before signing.
[2018-07-04] MEDS: BENZOCAINE/MENTHOL 1 LOZENGE 2 LOZENGE MUCOUS MEM (13:23)
[2018-07-04 15:12] LABS: Partial Thromboplast Time 63.7 Seconds (24.1-36.2)
[2018-07-04] MEDS: Acetaminophen 325 MG Tablet 650 MG PO (18:01)
[2018-07-04] MEDS: HEPARIN/D5w 25,000 UNITS 25,000 UNITS/250 ML IV.SOLN. 11 UNITS IV (18:32)
[2018-07-04 21:02] LABS: Partial Thromboplast Time 59.1 Seconds (24.1-36.2)
[2018-07-04] MEDS: Atorvastatin Calcium 40 MG Tablet PO (21:26)
[2018-07-04] MEDS: guaiFENesin 10 ML UDC (200MG/10ML) PO (22:15)
[2018-07-05] VITALS (13 sets, daily range): BP systolic 105–127; BP diastolic 60–76; PULSE 88–114; RESP 17–20; TEMP 36.6–38.3; O2SAT 94–99
[2018-07-05] MEDS: Acetaminophen 325 MG Tablet 650 MG PO ×3 (03:25→23:12)
[2018-07-05 06:42] LABS: Absolute Neutrophil Count 8.6 X10^3/uL (2.0-7.7); Basophil# 0.03 X10^3/uL; Basophil% 0.3 % (0-1); Eosinophil# 0.23 X10^3/uL; Hematocrit 26.2 % (40-54); Hemoglobin 8.4 g/dl (13.0-16.5); Mean Corp Hgb Conc 32.1 g/gl (32-36); Mean Corpuscular Hgb 30.2 pg (27.0-32.0); Mean Corpuscular Volume 94.2 fL (80-94); Mean Platelet Vol. 9.2 fl (6.2-12.0); Monocyte# 1.49 X10^3/uL; Monocyte% 13.2 % (0-10); Neutrophil # 8.61 X10^3/uL (2.7-7.7); POSITIVE COUNT NO; POSITIVE DIFFERENTIAL NO; POSITIVE MORPHOLOGY NO; Platelet Count 249 K/mm3 (150-450); RBC Distribution Width CV 15.1 % (11.6-14.6); RBC Distribution Width SD 49.5 fl (35.1-43.9); Red Blood Count 2.78 M/mm3 (4.6-6.2); White Blood Count 11.3 K/mm3 (4.4-11.0)
[2018-07-05 06:47] LABS: Anion Gap 10 (5-15); BUN 14 mg/dL (7-18); BUN/Creat Ratio 14.6 RATIO (10-20); Calcium,Total 8.2 mg/dL (8.5-10.1); Chloride 100 mmol/L (98-107); Creatinine, Serum 0.96 mg/dL (0.70-1.30); EST Glomerular Filtration Rate 84 mL/min (>60); Est Glom Filt Rate - Afr Amer 101 mL/min (>60); Estimated Creatinine Clearance 79.21 ml/min; Glucose 97 mg/dL (74-106); Potassium 3.8 mmol/L (3.5-5.1); Sodium Level 135 mmol/L (136-145)
[2018-07-05] MEDS: Aspirin 81 MG TAB.CHEW PO (07:56)
[2018-07-05] MEDS: Metoprolol Tartrate 25 MG Tablet PO ×2 (09:38→23:13)
--- NOTE | 2018-07-05 11:16 | CASEMGMT ---
YAN MEDINA assessment: Face to Face with patient for initial transition planning/care coordination assessment. YAN MEDINA introduced self and role at [facility], pt voices understanding and consents to assessment at this time. Pt is sitting up in bed in no distress at this time. Pt's and daughter at bedside during assessment. Pt is A/Ox4 at this time and answers all questions appropriately at this time. Care providers, pharmacy, and demographics verified at this time. PCP: Janeen Specialists: gabby Mullen; Hardy, onc; Ria, cardio Preferred Pharmacy: [facility] [place] Insurance: [facility] A/B, MMO Prescription Benefit: [facility] D, but pt states is 'in the donut hole' and has to pay for meds until 08/03/18. Living Will/HPOA: Pt states has LW/HPOA but they are not currently on file at [facility] at this time and pt is aware. Pt states that his , Ying Chavarria, is HPOA. LNOK: Ying Chavarria, Living Arrangements: Pt states lives with in 1 story home and states did not have any concerns with accessibility prior to current illness but does state some concerns with going home at this time. Transportation: Pt states normally drives self and states no transportation concerns at this time. DME/HHC: Pt states has home oxygen at 2 liters 23/02 through [employer] but states was only supposed to use with ambulation. Pt states concerns with SOB during ambulation. Pt states no hx of HHC or SNF in the past. CM to follow for PT/OT notes. Pt does state concerns with going home at time of discharge. Pt states does not smoke or drink ETOH. Pt states is retired. Pt states no further concerns/needs at this time. Plan: TBD, CM to follow [place] YAN MEDINA
[2018-07-05] MEDS: BENZOCAINE/MENTHOL 1 LOZENGE 2 LOZENGE MUCOUS MEM (12:07)
--- NOTE | 2018-07-05 13:05 | PCM.PROGNOTE ---
Patient Problems: Active and Suspected Problems (Last Updated 07/03/18 @ 12:52 by Doc Higuera MD) NSTEMI (non-ST elevated myocardial infarction) (Acute) Chest pain (Acute) Subjective: The patient was seen and examined at the bedside this morning. Events from the last 24 hours have been reviewed. The patient is currently afebrile, hemodynamically stable and maintaining appropriate oxygen saturations on 2 L/min via nasal cannula. The patient does report a great deal of fatigue, weakness and shortness of breath. Objective: The patient's most recent lab work, culture data and imaging studies have all been personally reviewed. Pleural fluid cytology results are currently pending. - Physical Exam General: Alert, Cooperative, No apparent distress HEENT: Atraumatic, PERRLA, Normocephalic Oral: No Gingival or Mucosal Lesions/ Ulcerations Neck: Supple, No Nodes, Trachea Midline Lungs: No rhonchi, No wheeze, No rales, Diminished Cardiovascular: Regular rate, Regular Rhythm, Normal S1, Normal S2, No murmurs Abdomen: Bowel Sounds Present, Soft, Non Tender Extremities: No clubbing, No cyanosis, No edema Skin: - - No significant change from previous. Musculoskeletal: No Tenderness to Palpation of Joints or Extremities Neurological: Cranial nerves II-XII grossly intact, Neuro grossly intact Psych/Mental Status: Normal Affect, Appropriate Vital Signs Temp Pulse Resp BP Pulse Ox 36.6 C 101 H 18 127/76 H 99 07/05/18 09:24 07/05/18 10:59 07/05/18 09:24 07/05/18 09:38 07/05/18 09:24 Oxygen Flow Rate (L/min) 2 Oxygen Delivery Method Nasal Cannula Weight: 185 lb 13.595 oz Body Mass Index (BMI) 26.6 Intake and Output for Last 24 Hours 07/03/18 07/04/18 07/05/18 23:59 23:59 23:59 Intake Total 484 / 484 1126 / 1126 869 / 869 Balance 484 / 484 1126 / 1126 869 / 869 Laboratory Tests Past 24 Hrs 07/04/18 07/04/18 07/05/18 14:41 20:35 06:10 WBC 11.3 H RBC 2.78 L Hgb 8.4 L Hct 26.2 L MCV 94.2 H MCH 30.2 MCHC 32.1 RDW 15.1 H RDW Differential 49.5 H Plt Count 249 MPV 9.2 Immature Gran % (Auto) 0.500 Neut % (Auto) 76.0 H Lymph % (Auto) 8.0 L [place] % (Auto) 13.2 H Eos % (Auto) 2.0 Baso % (Auto) 0.3 Absolute Neuts (auto) 8.6 H Absolute Lymphs (auto) 0.90 Total Counted Not Reportable APTT 63.7 H 59.1 H Sodium Potassium Chloride Carbon Dioxide Anion Gap BUN Creatinine Estim Creat Clear Calc Est GFR (MDRD) Af Amer Est GFR (MDRD) Non-Af BUN/Creatinine Ratio Glucose Calcium 07/05/18 07/05/18 06:10 06:10 WBC RBC Hgb Hct MCV MCH MCHC RDW RDW Differential Plt Count MPV Immature Gran % (Auto) Neut % (Auto) Lymph % (Auto) [place] % (Auto) Eos % (Auto) Baso % (Auto) Absolute Neuts (auto) Absolute Lymphs (auto) Total Counted APTT 63.0 H Sodium 135 L Potassium 3.8 Chloride 100 Carbon Dioxide 25.0 Anion Gap 10 BUN 14 Creatinine 0.96 Estim Creat Clear Calc 79.21 Est GFR (MDRD) Af Amer 101 Est GFR (MDRD) Non-Af 84 BUN/Creatinine Ratio 14.6 Glucose 97 Calcium 8.2 L Clinical Impression(s) from Imaging Studies Abdomen/Pelvis CT 07/03/18 09:21 IMPRESSION: Worsening consolidations and effusions at the left lung base and nodular changes at the right lung base. Partially visualized right hilar and subcarinal lymphadenopathy. Bilateral renal cysts. Electronically Signed: Fritz Lee, at 10:19 EST Tel , Service support , Chest X-Ray 07/03/18 09:21 IMPRESSION: Stable-appearing consolidation and effusion at the left lung base. Electronically Signed: Fritz Lee, at 10:34 EST Tel , Service support , Chest CTA 07/03/18 14:04 IMPRESSION: 1. Stable multiple moderate size left pleural effusion. A few gas bubbles now present in the fluid along the posterolateral left mid chest, raising concern of evolving empyema. There is stable partial collapse of the left lower lobe. 2. Worsened infrahilar right base peribronchial thickening and ill-defined stranding of inflammatory change or volume loss/crowding. Stable 7 mm nodule in the posterior peripheral right lower lobe. Occasional calcified granulomata also noted. 3. Grossly stable mediastinal, subcarinal, and right hilar lymphadenopathy, with confluent soft tissue density encasing the central right bronchovascular structures. 4. Incompletely occlusive thrombus in the right lower lobe pulmonary artery has progressed into the segmental right lower lobe branches. This likely reflects local disease secondary to stasis of flow rather than acute pulmonary embolus. Electronically Signed: Collin Michael MD at 17:19 EST , Service support , ADDENDUM: 07/03/18 1729 Medical Necessity - Tobacco Use Smoking Status: Former smoker Assessment/Plan All Active Problems (Last Updated 07/03/18 @ 12:52 by Doc Higuera MD) NSTEMI (non-ST elevated myocardial infarction) (Acute) Chest pain (Acute) Bone metastases (Acute) Pleural effusion, malignant (Acute) RECOMMENDATIONS: 1. Await cytology results from the patient's recent thoracentesis. 2. Continue bronchodilators. 3. Continue heparin drip for now. 4. Medical management of NSTEMI per cardiology recommendations. 5. Additional recommendations forthcoming pending the results of pleural fluid cytology. 6. Physical therapy evaluation today. IMPRESSIONS: 1. History of non-small cell lung cancer with concern for recurrence/concern for malignant pleural effusion The patient is currently active with oncology and recently underwent a thoracentesis. We are waiting cytology results to confirm a suspected diagnosis of malignant pleural effusion. If the patient's effusion is found to be positive for malignant cells, this would make him automatically a stage IV cancer patient. I am less concerned about the possibility of empyema, as I feel that the gas bubbles noted in the pleural effusion are likely the consequence of his recent thoracentesis. Consideration for any additional cancer treatment will need to be undertaken by oncology. Consultation to oncology is currently pending. If pleural fluid is found to be malignant and is reaccumulating rapidly, consideration can be given to Pleurx catheter placement. Given the patient's complaints of ongoing fatigue and weakness, recommend physical therapy evaluation. Obtain repeat plain film chest x-ray in the morning. 2. Venous thromboembolic disease The patient is currently on a heparin drip, having been transitioned from his outpatient Lovenox. However, the patient's Lovenox had been transiently discontinued to allow for the patient's recent thoracentesis. 3. History of COPD The patient currently follows with Dr. Mullen on an outpatient basis. Continue scheduled bronchodilators. 4. Non-ST segment elevation CA The patient is currently being followed by cardiology. Would strongly recommend holding off on any potential cardiac catheterization until the patient's pleural fluid cytology has returned. If the patient does have a malignant pleural effusion that continues to accumulate, he may be a candidate for Pleurx catheter placement, which would be hindered by have any stent placed and started on antiplatelet therapy. 5. Hypertension/hyperlipidemia/personal history of prostate CA Complicates care, management, recovery and prognosis. Likely okay to continue home medications as indicated. This note was generated with [employer] dictation software. It may contain incorrect words, spelling, and punctuation that were not noted in checking the note before signing. Code Visit Inpatient E&M: 76143 Subs Hosp L2
--- NOTE | 2018-07-05 13:10 | PN_ITS ---
Patient Problems: Active and Suspected Problems (Last Updated 07/03/18 @ 12:52 by Doc Higuera MD) NSTEMI (non-ST elevated myocardial infarction) (Acute) Chest pain (Acute) Subjective: The patient was seen and examined at the bedside this morning. Events from the last 24 hours have been reviewed. The patient is currently afebrile, hemodynamically stable and maintaining appropriate oxygen saturations on 2 L/min via nasal cannula. The patient does report a great deal of fatigue, weakness and shortness of breath. Objective: The patient's most recent lab work, culture data and imaging studies have all been personally reviewed. Pleural fluid cytology results are currently pending. - Physical Exam General: Alert, Cooperative, No apparent distress HEENT: Atraumatic, PERRLA, Normocephalic Oral: No Gingival or Mucosal Lesions/ Ulcerations Neck: Supple, No Nodes, Trachea Midline Lungs: No rhonchi, No wheeze, No rales, Diminished Cardiovascular: Regular rate, Regular Rhythm, Normal S1, Normal S2, No murmurs Abdomen: Bowel Sounds Present, Soft, Non Tender Extremities: No clubbing, No cyanosis, No edema Skin: - - No significant change from previous. Musculoskeletal: No Tenderness to Palpation of Joints or Extremities Neurological: Cranial nerves II-XII grossly intact, Neuro grossly intact Psych/Mental Status: Normal Affect, Appropriate Vital Signs Temp Pulse Resp BP Pulse Ox 36.6 C 101 H 18 127/76 H 99 07/05/18 09:24 07/05/18 10:59 07/05/18 09:24 07/05/18 09:38 07/05/18 09:24 Oxygen Flow Rate (L/min) 2 Oxygen Delivery Method Nasal Cannula Weight: 185 lb 13.595 oz Body Mass Index (BMI) 26.6 Intake and Output for Last 24 Hours 07/03/18 07/04/18 07/05/18 23:59 23:59 23:59 Intake Total 484 / 484 1126 / 1126 869 / 869 Balance 484 / 484 1126 / 1126 869 / 869 Laboratory Tests Past 24 Hrs 07/04/18 07/04/18 07/05/18 14:41 20:35 06:10 WBC 11.3 H RBC 2.78 L Hgb 8.4 L Hct 26.2 L MCV 94.2 H MCH 30.2 MCHC 32.1 RDW 15.1 H RDW Differential 49.5 H Plt Count 249 MPV 9.2 Immature Gran % (Auto) 0.500 Neut % (Auto) 76.0 H Lymph % (Auto) 8.0 L [place] % (Auto) 13.2 H Eos % (Auto) 2.0 Baso % (Auto) 0.3 Absolute Neuts (auto) 8.6 H Absolute Lymphs (auto) 0.90 Total Counted Not Reportable APTT 63.7 H 59.1 H Sodium Potassium Chloride Carbon Dioxide Anion Gap BUN Creatinine Estim Creat Clear Calc Est GFR (MDRD) Af Amer Est GFR (MDRD) Non-Af BUN/Creatinine Ratio Glucose Calcium 07/05/18 07/05/18 06:10 06:10 WBC RBC Hgb Hct MCV MCH MCHC RDW RDW Differential Plt Count MPV Immature Gran % (Auto) Neut % (Auto) Lymph % (Auto) [place] % (Auto) Eos % (Auto) Baso % (Auto) Absolute Neuts (auto) Absolute Lymphs (auto) Total Counted APTT 63.0 H Sodium 135 L Potassium 3.8 Chloride 100 Carbon Dioxide 25.0 Anion Gap 10 BUN 14 Creatinine 0.96 Estim Creat Clear Calc 79.21 Est GFR (MDRD) Af Amer 101 Est GFR (MDRD) Non-Af 84 BUN/Creatinine Ratio 14.6 Glucose 97 Calcium 8.2 L Clinical Impression(s) from Imaging Studies Abdomen/Pelvis CT 07/03/18 09:21 IMPRESSION: Worsening consolidations and effusions at the left lung base and nodular changes at the right lung base. Partially visualized right hilar and subcarinal lymphadenopathy. Bilateral renal cysts. Electronically Signed: Fritz Lee, at 10:19 EST Tel , Service support , Chest X-Ray 07/03/18 09:21 IMPRESSION: Stable-appearing consolidation and effusion at the left lung base. Electronically Signed: Fritz Lee, at 10:34 EST Tel , Service support , Chest CTA 07/03/18 14:04 IMPRESSION: 1. Stable multiple moderate size left pleural effusion. A few gas bubbles now present in the fluid along the posterolateral left mid chest, raising concern of evolving empyema. There is stable partial collapse of the left lower lobe. 2. Worsened infrahilar right base peribronchial thickening and ill-defined stranding of inflammatory change or volume loss/crowding. Stable 7 mm nodule in the posterior peripheral right lower lobe. Occasional calcified granulomata also noted. 3. Grossly stable mediastinal, subcarinal, and right hilar lymphadenopathy, with confluent soft tissue density encasing the central right bronchovascular structures. 4. Incompletely occlusive thrombus in the right lower lobe pulmonary artery has progressed into the segmental right lower lobe branches. This likely reflects local disease secondary to stasis of flow rather than acute pulmonary embolus. Electronically Signed: Collin Michael MD at 17:19 EST , Service support , ADDENDUM: 07/03/18 1729 Medical Necessity - Tobacco Use Smoking Status: Former smoker Assessment/Plan All Active Problems (Last Updated 07/03/18 @ 12:52 by Doc Higuera MD) NSTEMI (non-ST elevated myocardial infarction) (Acute) Chest pain (Acute) Bone metastases (Acute) Pleural effusion, malignant (Acute) RECOMMENDATIONS: 1. Await cytology results from the patient's recent thoracentesis. 2. Continue bronchodilators. 3. Continue heparin drip for now. 4. Medical management of NSTEMI per cardiology recommendations. 5. Additional recommendations forthcoming pending the results of pleural fluid cytology. 6. Physical therapy evaluation today. IMPRESSIONS: 1. History of non-small cell lung cancer with concern for recurrence/concern for malignant pleural effusion The patient is currently active with oncology and recently underwent a thoracentesis. We are waiting cytology results to confirm a suspected diagnosis of malignant pleural effusion. If the patient's effusion is found to be positive for malignant cells, this would make him automatically a stage IV cancer patient. I am less concerned about the possibility of empyema, as I feel that the gas bubbles noted in the pleural effusion are likely the consequence of his recent thoracentesis. Consideration for any additional cancer treatment will need to be undertaken by oncology. Consultation to oncology is currently pending. If pleural fluid is found to be malignant and is reaccumulating rapidly, consideration can be given to Pleurx catheter placement. Given the patient's complaints of ongoing fatigue and weakness, recommend physical therapy evaluation. Obtain repeat plain film chest x-ray in the morning. 2. Venous thromboembolic disease The patient is currently on a heparin drip, having been transitioned from his outpatient Lovenox. However, the patient's Lovenox had been transiently discontinued to allow for the patient's recent thoracentesis. 3. History of COPD The patient currently follows with Dr. Mullen on an outpatient basis. Continue scheduled bronchodilators. 4. Non-ST segment elevation [place] The patient is currently being followed by cardiology. Would strongly recommend holding off on any potential cardiac catheterization until the patient's pleural fluid cytology has returned. If the patient does have a malignant pleural effusion that continues to accumulate, he may be a candidate for Pleurx catheter placement, which would be hindered by have any stent placed and started on antiplatelet therapy. 5. Hypertension/hyperlipidemia/personal history of prostate CA Complicates care, management, recovery and prognosis. Likely okay to continue home medications as indicated. This note was generated with [employer] dictation software. It may contain incorrect words, spelling, and punctuation that were not noted in checking the note before signing. Code Visit Inpatient E&M: 27203 Subs Hosp L2
--- NOTE | 2018-07-05 15:33 | ONC.CONS.INP ---
Subjective Date of Service:: 07/05/18 Chief Complaint: H/o adenocarcinoma-lung, pleural effusion History of Present Illness: Mr. 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 On July 03, 2017 he underwent left lower lobe sleeve lobectomy at [facility] by Dr. Alfonso. He is s/p adjuvant systemic chemotherapy (Carboplatin/Alimta x 4 cycles) completed 12/15/17. On surveillance reports increasing dyspnea and CT scan June 18, followed by a PET/CT June 28, 2018 findings are consistent with recurrent disease in the mediastinal lymph nodes and likely malignant pleural effusion. There is also evidence for bony metastatic disease in the pelvis (either from lung or high risk prostate). Of significance, [facility] also + for prostate cancer presenting with an elevated PSA of 42. Patient is status post radical prostatectomy in October 2014 for a Ceres score 9 adenocarcinoma involving about 80% of the prostate with extra prostatic extension extensive positive margins and lymphovascular invasion as well as tory-neural invasion. Following his surgery patient underwent adjuvant radiation therapy concluded in 2014. At the completion of his treatment his PSA was less than 0.1 however by 2015 PSA relapse prompted initiation of ADT by his urologist which he continues to date (Benito) with the most recent PSA of less than 0.1. Patient underwent thoracentesis in the ambulatory setting 07/02/18 and next day developed vague abd pain and extreme fatigue which prompted presentation to [facility] ED. Found to have experienced NSTEMI and subsequently admitted for management. Upon entering the room, patient is awake in bed. During assessment, visibly SOB on 2 L per nc. Past Medical History: Chronic Problems (Last Updated 07/03/18 @ 12:52 by Doc Higuera MD) COPD (chronic obstructive pulmonary disease) (Chronic) Prostate cancer (Chronic) surgery , R.T. 2014 PSA relapse 2016 ADT Multiple sclerosis (Chronic) left leg weakness Cancer of lower lobe of left lung (Chronic) Regional lymph node metastasis present (Chronic) Anemia (Chronic) Adenocarcinoma of lung (Chronic) Hyperlipidemia (Chronic) Hypertension (Chronic) History of prostatectomy (Chronic) 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) [facility] 07/03/17 Past Medical/Surgical History: Past Medical History - Most Recent Inpatient Visit Past Medical History Start: 07/03/18 11:43 Text: Status: Complete Freq: ONCE Protocol: Document 07/03/18 12:57 [place] (Rec: 07/03/18 13:03 [place] [id number]) BMI Required to complete PMH What is Patient's BMI 26.6 Neurologic Medical History Hx Stroke/TIA Yes Hx Dementia/Alzheimer's No Hx Parkinson's Disease No Hx Seizures No Hx Multiple Sclerosis Yes: LLE WEAKNESS X 30 YRS Hx Migraines No Cardiac Medical History VTE Present on Admission No Hx of Deep Vein Thrombosis/VTE/PE Yes Hx Hypertension Yes Hx Chest Pain/Angina Yes Hx Heart Attack No Hx Cardiac Surgery/Stents/Etc. No Hx Heart Failure No Hx Pacemaker/AICD No Hx Irregular Heartbeat and/or Afib No Hx Anticoagulant Therapy Yes: elaquis, lovenox Query Text:(Coumadin, Aspirin, Plavix, Xarelto, etc.) Hx Pain in Legs when Walking/Leg Cramps No Respiratory Medical History Hx COPD No Hx Emphysema No Hx Smoking No Smoking Status Former smoker Hx Smoking Cessation Counseling Yes Hx Smoking Exposure Yes Hx Tobacco Use in last 12 months No Hx of Pipe Smoking No Hx Sleep Apnea No CPAP No BIPAP No Do you snore loudly (louder than talking No or can be heard through closed doors)? Do you often feel tired/ fatigued/ No sleepy during daytime? Has anyone observed you stop breathing No during sleep? STOP Results Negative GI Medical History Hx Ulcer Yes Hx Hepatitis No Hx Cirrhosis No Hx GI Bleed No Hx Unplanned Weight Loss No Genitourinary Medical History Indwelling Catheter in Place on Arrival/ No Admission Hx Renal Disease No Hx Dialysis No Musculoskeletal History Hx Arthritis No Hx Rheumatoid Arthritis No Endocrine Medical History Hx Diabetes No Hx Thyroid Disease No Hematologic Medical History Hx of Blood Transfusion No Hx of Transfusion in last 3 Months No Ever experience any problems with No transfusion(s)? Hx of Preganancy in last 3 Months N/A Nurse Filling Out Transfusion & ZBEAM Questions: Date: 07/03/18 Time: 13:02 Psycho/Social Medical History Hx Depression No Hx Anxiety No Hx Behavior Disorder No Hx Alcohol Use No Hx Substance Use No Other Medical History Hx Blood Disorders No Hx Anemia No Hx Cancer Yes: PROSTATE CANCER ( radiation), BX 08/2014, LUNG CA s/p chemo and lobectomy Hx Drug Resistant Organism No Wound/Pressure Injury Present on Arrival No /Admission Query Text:If yes, chart assessment in Shift/Clinical Findings Central Line/PICC/VAD Present on Arrival No /Admission Antibiotics within last 7 days? No Risk for Readmission Number of Risk Factors 3 At Risk for Readmission Patient is At Risk For Readmission Patient is eligible for Call Back Y Past Medical History (Last Updated 07/03/18 @ 12:52 by Doc Higuera MD) Adenocarcinoma of lung (Chronic) Hyperlipidemia (Chronic) Hypertension (Chronic) 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) BLOOD CLOT LUNGS (Acute) Deep vein blood clot of left lower extremity (Acute) Deep vein blood clot of right lower extremity (Acute) Past Surgical History (Last Updated 07/03/18 @ 12:52 by Doc Higuera MD) History of prostatectomy (Chronic) Maternal Family History: Family History (Last Reviewed 07/01/18 @ 12:53 by HAI Zamora) Father Prostate cancer Liver cancer Liver disease Mother Bone cancer Family History: No pertinent history Paternal Family History: Family History (Last Reviewed 07/01/18 @ 12:53 by HAI Zamora) Father Prostate cancer Liver cancer Liver disease Mother Bone cancer Family History: No pertinent history - Social History Lives: Spouse/ Significant Other Smoking Status: Former smoker Alcohol: None, Rare Drugs: None Allergies/Adverse Reactions: Allergy/AdvReac Type Severity Reaction Status Date / Time morphine AdvReac Intermediate MAKES HIS Verified 07/03/18 09:12 NAUSEATED AND SICK Review of Systems Constitutional:: Reports: Weakness, Fatigue. Denies: Fever, Sweats, Weight loss, Appetite change, Chills Cardiovascular:: Reports: Dyspnea on exertion. Denies: Chest pain, Palpitations, Orthopnea, PND, Shortness of breath Respiratory: Reports: Cough, Shortness of breath at rest. Denies: Hemoptysis, Wheezing Gastrointestinal:: Denies: Abdominal pain, Nausea, Vomiting, Diarrhea, Constipation, Hematochezia Genitourinary: Denies: Dysuria, Hematuria, 15, Flank pain Musculoskeletal:: Denies: Back pain, Myalgia, Arthralgia Skin: Denies: Rash, Skin Changes, Wounds Neurological:: Reports: Muscle weakness. Denies: Headache, Dizziness, Numbness, Tingling, Frequent falls, Visual changes, Tinnitus, Hearing loss Psychiatric: Denies: Anxiety, Depression, Homicidal Ideations, Suicidal Ideations Vital Signs Height 5 ft 10.08 in Weight: 185 lb 13.595 oz Weight in Pounds 185.8 lbs Pulse Ox 96 Temperature 99.1 F Pulse Rate 88 Respiratory Rate 17 Blood Pressure 105/63 Blood Pressure Position Semi-Fowlers - Physical Exam General: Alert, Oriented x3, No apparent distress HEENT: Atraumatic, PERRLA, EOMI, Normocephalic, - - wears glasses Oropharynx:: Negative for: Dry mucosa, Ulcerated lesions Neck:: Supple, Trachea midline. Negative for: JVD, bilateral Cardiac:: Regular rate, Regular rhythm, Normal S1, Normal S2. Negative for: Murmur Lungs: Rhonchi, Wheezes, Diminished, Increased respiratory effort, Excusion symmetrical. Negative for: Tachypneic Abdomen:: Bowel sounds x 4, Soft, Non-tender, Non-distended. Negative for: Hepatosplenomegaly Extremities:: Negative for: Cyanosis, Edema Neurological: Neuro grossly intact Skin:: Negative for: Lesions, Rash, Petechiae, Ecchymosis Psychiatric:: Appropriate affect, Euthymic Lymphatics:: Negative for: Cervical lymphadenopathy, Supraclavicular lymphadenopathy, Axillary lymphadenopathy Laboratory Data: Laboratory Tests 07/05/18 07/05/18 07/05/18 Range/Units 06:10 06:10 06:10 WBC 11.3 H (4.4-11.0) K/mm3 RBC 2.78 L (4.6-6.2) M/mm3 Hgb 8.4 L (13.0-16.5) g/dl Hct 26.2 L (40-54) % MCV 94.2 H (80-94) fL MCH 30.2 (27.0-32.0) pg MCHC 32.1 (32-36) g/gl RDW 15.1 H (11.6-14.6) % RDW Differential 49.5 H (35.1-43.9) fl Plt Count 249 (150-450) K/mm3 MPV 9.2 (6.2-12.0) fl Immature Gran % (Auto) 0.500 (0.0-0.9) % Neut % (Auto) 76.0 H (47-70) % Lymph % (Auto) 8.0 L (19-41) % Mchenry % (Auto) 13.2 H (0-10) % Eos % (Auto) 2.0 (0-5) % Baso % (Auto) 0.3 (0-1) % Absolute Neuts (auto) 8.6 H (2.0-7.7) X10^3/uL Absolute Lymphs (auto) 0.90 (0.83-4.51) X10^3/ul Total Counted Not Reportable APTT 63.0 H (24.1-36.2) Seconds Sodium 135 L (136-145) mmol/L Potassium 3.8 (3.5-5.1) mmol/L Chloride 100 (98-107) mmol/L Carbon Dioxide 25.0 (21.0-32.0) mmol/L Anion Gap 10 (5-15) BUN 14 (7-18) mg/dL Creatinine 0.96 (0.70-1.30) mg/dL Estim Creat Clear Calc 79.21 ml/min Est GFR (MDRD) Af Amer 101 (>60) mL/min Est GFR (MDRD) Non-Af 84 (>60) mL/min BUN/Creatinine Ratio 14.6 (10-20) RATIO Glucose 97 (74-106) mg/dL Calcium 8.2 L (8.5-10.1) mg/dL 07/04/18 07/04/18 Range/Units 20:35 14:41 WBC (4.4-11.0) K/mm3 RBC (4.6-6.2) M/mm3 Hgb (13.0-16.5) g/dl Hct (40-54) % MCV (80-94) fL MCH (27.0-32.0) pg MCHC (32-36) g/gl RDW (11.6-14.6) % RDW Differential (35.1-43.9) fl Plt Count (150-450) K/mm3 MPV (6.2-12.0) fl Immature Gran % (Auto) (0.0-0.9) % Neut % (Auto) (47-70) % Lymph % (Auto) (19-41) % Mchenry % (Auto) (0-10) % Eos % (Auto) (0-5) % Baso % (Auto) (0-1) % Absolute Neuts (auto) (2.0-7.7) X10^3/uL Absolute Lymphs (auto) (0.83-4.51) X10^3/ul Total Counted APTT 59.1 H 63.7 H (24.1-36.2) Seconds Sodium (136-145) mmol/L Potassium (3.5-5.1) mmol/L Chloride (98-107) mmol/L Carbon Dioxide (21.0-32.0) mmol/L Anion Gap (5-15) BUN (7-18) mg/dL Creatinine (0.70-1.30) mg/dL Estim Creat Clear Calc ml/min Est GFR (MDRD) Af Amer (>60) mL/min Est GFR (MDRD) Non-Af (>60) mL/min BUN/Creatinine Ratio (10-20) RATIO Glucose (74-106) mg/dL Calcium (8.5-10.1) mg/dL Diagnostic Data: Diagnostic Data Abdomen/Pelvis CT 07/03/18 09:21 IMPRESSION: Worsening consolidations and effusions at the left lung base and nodular changes at the right lung base. Partially visualized right hilar and subcarinal lymphadenopathy. Bilateral renal cysts. Electronically Signed: Fritz Lee, at 10:19 EST Tel , Service support , Chest X-Ray 07/03/18 09:21 IMPRESSION: Stable-appearing consolidation and effusion at the left lung base. Electronically Signed: Fritz Lee, at 10:34 EST Tel , Service support , Chest CTA 07/03/18 14:04 IMPRESSION: 1. Stable multiple moderate size left pleural effusion. A few gas bubbles now present in the fluid along the posterolateral left mid chest, raising concern of evolving empyema. There is stable partial collapse of the left lower lobe. 2. Worsened infrahilar right base peribronchial thickening and ill-defined stranding of inflammatory change or volume loss/crowding. Stable 7 mm nodule in the posterior peripheral right lower lobe. Occasional calcified granulomata also noted. 3. Grossly stable mediastinal, subcarinal, and right hilar lymphadenopathy, with confluent soft tissue density encasing the central right bronchovascular structures. 4. Incompletely occlusive thrombus in the right lower lobe pulmonary artery has progressed into the segmental right lower lobe branches. This likely reflects local disease secondary to stasis of flow rather than acute pulmonary embolus. Electronically Signed: Collin Michael MD at 17:19 EST , Service support , ADDENDUM: 07/03/18 [id number] Assessment and Plan 1. Non-small cell lung cancer, adenocarcinoma histology, left lower lobe. Patient is status post left lower lobectomy and lymph node dissection at [facility] July 03, 2017 with R0 resection. Received adjuvant chemotherapy with carboplatin Alimta for 4 cycles October-December 2017 (as per patient request of delay) on surveillance reports increasing dyspnea and CT scan June 18, followed by a PET/CT June 28, 2018 findings are consistent with recurrent disease in the mediastinal lymph nodes and likely malignant pleural effusion. There is also evidence for bony metastatic disease in the pelvis (either from lung or high risk prostate, although less likely as patient has confirmed PSA secreting disease and PSA in 03/2018 undetectable). 2. Left pleural effusion- Underwent thoracentesis 07/02/18, cytology is pending. PDL1 testing on pleural fluid pending. 3. Anemia- as evidenced by Hgb 8.4. Presumably multifactorial, chronic disease and cancer. Will continue to monitor. 4. VTE- Hypercoagulability d/t active malignancy. Presently on heparin drip 5. A very high risk prostate cancer- status post radical prostatectomy followed by adjuvant radiation therapy in 2014 and has been on ADT since 2016 due to PSA relapse. PSA <0.01 03/2018. Case discussed with Dr. Leger. No outstanding recommendations from oncology, pending results of cytology analysis. Corina Holbrook, MSN, [employer], AOCNP Primary Care Provider: Doron Vernon Referring Provider:
--- NOTE | 2018-07-05 15:38 | CON.PCM_ITS ---
Subjective Date of Service:: 07/05/18 Chief Complaint: H/o adenocarcinoma-lung, pleural effusion History of Present Illness: Mr. 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 On July 03, 2017 he underwent left lower lobe sleeve lobectomy at [facility] by Dr. Alfonso. He is s/p adjuvant systemic chemotherapy (Carboplatin/Alimta x 4 cycles) completed 12/15/17. On surveillance reports increasing dyspnea and CT scan June 18, followed by a PET/CT June 28, 2018 findings are consistent with recurrent disease in the mediastinal lymph nodes and likely malignant pleural effusion. There is also evidence for bony metastatic disease in the pelvis (either from lung or high risk prostate). Of significance, [facility] also + for prostate cancer presenting with an elevated PSA of 42. Patient is status post radical prostatectomy in October 2014 for a [place] score 9 adenocarcinoma involving about 80% of the prostate with extra prostatic extension extensive positive margins and lymphovascular invasion as well as tory-neural invasion. Following his surgery patient underwent adjuvant radiation therapy concluded in 2014. At the completion of his treatment his PSA was less than 0.1 however by 2015 PSA relapse prompted initiation of ADT by his urologist which he continues to date (Benito) with the most recent PSA of less than 0.1. Patient underwent thoracentesis in the ambulatory setting 07/02/18 and next day developed vague abd pain and extreme fatigue which prompted presentation to [facility] ED. Found to have experienced NSTEMI and subsequently admitted for management. Upon entering the room, patient is awake in bed. During assessment, visibly SOB on 2 L per nc. Past Medical History: Chronic Problems (Last Updated 07/03/18 @ 12:52 by Doc Higuera MD) COPD (chronic obstructive pulmonary disease) (Chronic) Prostate cancer (Chronic) surgery , R.T. 2014 PSA relapse 2016 ADT Multiple sclerosis (Chronic) left leg weakness Cancer of lower lobe of left lung (Chronic) Regional lymph node metastasis present (Chronic) Anemia (Chronic) Adenocarcinoma of lung (Chronic) Hyperlipidemia (Chronic) Hypertension (Chronic) History of prostatectomy (Chronic) 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) [facility] [place] 07/03/17 Past Medical/Surgical History: Past Medical History - Most Recent Inpatient Visit Past Medical History Start: 07/03/18 11:43 Text: Status: Complete Freq: ONCE Protocol: Document 07/03/18 12:57 [place] (Rec: 07/03/18 13:03 [place] [id number]) BMI Required to complete PMH What is Patient's BMI 26.6 Neurologic Medical History Hx Stroke/TIA Yes Hx Dementia/Alzheimer's No Hx Parkinson's Disease No Hx Seizures No Hx Multiple Sclerosis Yes: LLE WEAKNESS X 30 YRS Hx Migraines No Cardiac Medical History VTE Present on Admission No Hx of Deep Vein Thrombosis/VTE/PE Yes Hx Hypertension Yes Hx Chest Pain/Angina Yes Hx Heart Attack No Hx Cardiac Surgery/Stents/Etc. No Hx Heart Failure No Hx Pacemaker/AICD No Hx Irregular Heartbeat and/or Afib No Hx Anticoagulant Therapy Yes: elaquis, lovenox Query Text:(Coumadin, Aspirin, Plavix, Xarelto, etc.) Hx Pain in Legs when Walking/Leg Cramps No Respiratory Medical History Hx COPD No Hx Emphysema No Hx Smoking No Smoking Status Former smoker Hx Smoking Cessation Counseling Yes Hx Smoking Exposure Yes Hx Tobacco Use in last 12 months No Hx of Pipe Smoking No Hx Sleep Apnea No CPAP No BIPAP No Do you snore loudly (louder than talking No or can be heard through closed doors)? Do you often feel tired/ fatigued/ No sleepy during daytime? Has anyone observed you stop breathing No during sleep? STOP Results Negative GI Medical History Hx Ulcer Yes Hx Hepatitis No Hx Cirrhosis No Hx GI Bleed No Hx Unplanned Weight Loss No Genitourinary Medical History Indwelling Catheter in Place on Arrival/ No Admission Hx Renal Disease No Hx Dialysis No Musculoskeletal History Hx Arthritis No Hx Rheumatoid Arthritis No Endocrine Medical History Hx Diabetes No Hx Thyroid Disease No Hematologic Medical History Hx of Blood Transfusion No Hx of Transfusion in last 3 Months No Ever experience any problems with No transfusion(s)? Hx of Preganancy in last 3 Months N/A Nurse Filling Out Transfusion & ZBEAM Questions: Date: 07/03/18 Time: 13:02 Psycho/Social Medical History Hx Depression No Hx Anxiety No Hx Behavior Disorder No Hx Alcohol Use No Hx Substance Use No Other Medical History Hx Blood Disorders No Hx Anemia No Hx Cancer Yes: PROSTATE CANCER ( radiation), BX 08/2014, LUNG CA s/p chemo and lobectomy Hx Drug Resistant Organism No Wound/Pressure Injury Present on Arrival No /Admission Query Text:If yes, chart assessment in Shift/Clinical Findings Central Line/PICC/VAD Present on Arrival No /Admission Antibiotics within last 7 days? No Risk for Readmission Number of Risk Factors 3 At Risk for Readmission Patient is At Risk For Readmission Patient is eligible for Call Back Y Past Medical History (Last Updated 07/03/18 @ 12:52 by Doc Higuera MD) Adenocarcinoma of lung (Chronic) Hyperlipidemia (Chronic) Hypertension (Chronic) 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) BLOOD CLOT LUNGS (Acute) Deep vein blood clot of left lower extremity (Acute) Deep vein blood clot of right lower extremity (Acute) Past Surgical History (Last Updated 07/03/18 @ 12:52 by Doc Higuera MD) History of prostatectomy (Chronic) Maternal Family History: Family History (Last Reviewed 07/01/18 @ 12:53 by HAI Zamora) Father Prostate cancer Liver cancer Liver disease Mother Bone cancer Family History: No pertinent history Paternal Family History: Family History (Last Reviewed 07/01/18 @ 12:53 by HAI Zamora) Father Prostate cancer Liver cancer Liver disease Mother Bone cancer Family History: No pertinent history - Social History Lives: Spouse/ Significant Other Smoking Status: Former smoker Alcohol: None, Rare Drugs: None Allergies/Adverse Reactions: Allergy/AdvReac Type Severity Reaction Status Date / Time morphine AdvReac Intermediate MAKES HIS Verified 07/03/18 09:12 NAUSEATED AND SICK Review of Systems Constitutional:: Reports: Weakness, Fatigue. Denies: Fever, Sweats, Weight loss, Appetite change, Chills Cardiovascular:: Reports: Dyspnea on exertion. Denies: Chest pain, Palpitations, Orthopnea, PND, Shortness of breath Respiratory: Reports: Cough, Shortness of breath at rest. Denies: Hemoptysis, Wheezing Gastrointestinal:: Denies: Abdominal pain, Nausea, Vomiting, Diarrhea, Constipation, Hematochezia Genitourinary: Denies: Dysuria, Hematuria, 15, Flank pain Musculoskeletal:: Denies: Back pain, Myalgia, Arthralgia Skin: Denies: Rash, Skin Changes, Wounds Neurological:: Reports: Muscle weakness. Denies: Headache, Dizziness, Numbness, Tingling, Frequent falls, Visual changes, Tinnitus, Hearing loss Psychiatric: Denies: Anxiety, Depression, Homicidal Ideations, Suicidal Ideations Vital Signs Height 5 ft 10.08 in Weight: 185 lb 13.595 oz Weight in Pounds 185.8 lbs Pulse Ox 96 Temperature 99.1 F Pulse Rate 88 Respiratory Rate 17 Blood Pressure 105/63 Blood Pressure Position Semi-Fowlers - Physical Exam General: Alert, Oriented x3, No apparent distress HEENT: Atraumatic, PERRLA, EOMI, Normocephalic, - - wears glasses Oropharynx:: Negative for: Dry mucosa, Ulcerated lesions Neck:: Supple, Trachea midline. Negative for: JVD, bilateral Cardiac:: Regular rate, Regular rhythm, Normal S1, Normal S2. Negative for: Murmur Lungs: Rhonchi, Wheezes, Diminished, Increased respiratory effort, Excusion symmetrical. Negative for: Tachypneic Abdomen:: Bowel sounds x 4, Soft, Non-tender, Non-distended. Negative for: Hepatosplenomegaly Extremities:: Negative for: Cyanosis, Edema Neurological: Neuro grossly intact Skin:: Negative for: Lesions, Rash, Petechiae, Ecchymosis Psychiatric:: Appropriate affect, Euthymic Lymphatics:: Negative for: Cervical lymphadenopathy, Supraclavicular lymphadenopathy, Axillary lymphadenopathy Laboratory Data: Laboratory Tests 07/05/18 07/05/18 07/05/18 Range/Units 06:10 06:10 06:10 WBC 11.3 H (4.4-11.0) K/mm3 RBC 2.78 L (4.6-6.2) M/mm3 Hgb 8.4 L (13.0-16.5) g/dl Hct 26.2 L (40-54) % MCV 94.2 H (80-94) fL MCH 30.2 (27.0-32.0) pg MCHC 32.1 (32-36) g/gl RDW 15.1 H (11.6-14.6) % RDW Differential 49.5 H (35.1-43.9) fl Plt Count 249 (150-450) K/mm3 MPV 9.2 (6.2-12.0) fl Immature Gran % (Auto) 0.500 (0.0-0.9) % Neut % (Auto) 76.0 H (47-70) % Lymph % (Auto) 8.0 L (19-41) % [place] % (Auto) 13.2 H (0-10) % Eos % (Auto) 2.0 (0-5) % Baso % (Auto) 0.3 (0-1) % Absolute Neuts (auto) 8.6 H (2.0-7.7) X10^3/uL Absolute Lymphs (auto) 0.90 (0.83-4.51) X10^3/ul Total Counted Not Reportable APTT 63.0 H (24.1-36.2) Seconds Sodium 135 L (136-145) mmol/L Potassium 3.8 (3.5-5.1) mmol/L Chloride 100 (98-107) mmol/L Carbon Dioxide 25.0 (21.0-32.0) mmol/L Anion Gap 10 (5-15) BUN 14 (7-18) mg/dL Creatinine 0.96 (0.70-1.30) mg/dL Estim Creat Clear Calc 79.21 ml/min Est GFR (MDRD) Af Amer 101 (>60) mL/min Est GFR (MDRD) Non-Af 84 (>60) mL/min BUN/Creatinine Ratio 14.6 (10-20) RATIO Glucose 97 (74-106) mg/dL Calcium 8.2 L (8.5-10.1) mg/dL 07/04/18 07/04/18 Range/Units 20:35 14:41 WBC (4.4-11.0) K/mm3 RBC (4.6-6.2) M/mm3 Hgb (13.0-16.5) g/dl Hct (40-54) % MCV (80-94) fL MCH (27.0-32.0) pg MCHC (32-36) g/gl RDW (11.6-14.6) % RDW Differential (35.1-43.9) fl Plt Count (150-450) K/mm3 MPV (6.2-12.0) fl Immature Gran % (Auto) (0.0-0.9) % Neut % (Auto) (47-70) % Lymph % (Auto) (19-41) % [place] % (Auto) (0-10) % Eos % (Auto) (0-5) % Baso % (Auto) (0-1) % Absolute Neuts (auto) (2.0-7.7) X10^3/uL Absolute Lymphs (auto) (0.83-4.51) X10^3/ul Total Counted APTT 59.1 H 63.7 H (24.1-36.2) Seconds Sodium (136-145) mmol/L Potassium (3.5-5.1) mmol/L Chloride (98-107) mmol/L Carbon Dioxide (21.0-32.0) mmol/L Anion Gap (5-15) BUN (7-18) mg/dL Creatinine (0.70-1.30) mg/dL Estim Creat Clear Calc ml/min Est GFR (MDRD) Af Amer (>60) mL/min Est GFR (MDRD) Non-Af (>60) mL/min BUN/Creatinine Ratio (10-20) RATIO Glucose (74-106) mg/dL Calcium (8.5-10.1) mg/dL Diagnostic Data: Diagnostic Data Abdomen/Pelvis CT 07/03/18 09:21 IMPRESSION: Worsening consolidations and effusions at the left lung base and nodular changes at the right lung base. Partially visualized right hilar and subcarinal lymphadenopathy. Bilateral renal cysts. Electronically Signed: Fritz Lee, at 10:19 EST Tel , Service support , Chest X-Ray 07/03/18 09:21 IMPRESSION: Stable-appearing consolidation and effusion at the left lung base. Electronically Signed: Fritz Lee, at 10:34 EST Tel , Service support , Chest CTA 07/03/18 14:04 IMPRESSION: 1. Stable multiple moderate size left pleural effusion. A few gas bubbles now present in the fluid along the posterolateral left mid chest, raising concern of evolving empyema. There is stable partial collapse of the left lower lobe. 2. Worsened infrahilar right base peribronchial thickening and ill-defined stranding of inflammatory change or volume loss/crowding. Stable 7 mm nodule in the posterior peripheral right lower lobe. Occasional calcified granulomata also noted. 3. Grossly stable mediastinal, subcarinal, and right hilar lymphadenopathy, with confluent soft tissue density encasing the central right bronchovascular structures. 4. Incompletely occlusive thrombus in the right lower lobe pulmonary artery has progressed into the segmental right lower lobe branches. This likely reflects local disease secondary to stasis of flow rather than acute pulmonary embolus. Electronically Signed: Collin Michael MD at 17:19 EST , Service support , ADDENDUM: 07/03/18 [id number] Assessment and Plan 1. Non-small cell lung cancer, adenocarcinoma histology, left lower lobe. Patient is status post left lower lobectomy and lymph node dissection at [facility] July 03, 2017 with R0 resection. Received adjuvant chemotherapy with carboplatin Alimta for 4 cycles October-December 2017 (as per patient request of delay) on surveillance reports increasing dyspnea and CT scan June 18, followed by a PET/CT June 28, 2018 findings are consistent with recurrent disease in the mediastinal lymph nodes and likely malignant pleural effusion. There is also evidence for bony metastatic disease in the pelvis (either from lung or high risk prostate, although less likely as patient has confirmed PSA secreting disease and PSA in 03/2018 undetectable). 2. Left pleural effusion- Underwent thoracentesis 07/02/18, cytology is pending. PDL1 testing on pleural fluid pending. 3. Anemia- as evidenced by Hgb 8.4. Presumably multifactorial, chronic disease and cancer. Will continue to monitor. 4. VTE- Hypercoagulability d/t active malignancy. Presently on heparin drip 5. A very high risk prostate cancer- status post radical prostatectomy followed by adjuvant radiation therapy in 2014 and has been on ADT since 2016 due to PSA relapse. PSA <0.01 03/2018. Case discussed with Dr. Leger. No outstanding recommendations from oncology, pending results of cytology analysis. Corina Holbrook, MSN, MEDICAL SCIENTIFIC OFFICER-C, AOCNP Primary Care Provider: Doron Vernon Referring Provider:
[2018-07-05] MEDS: HEPARIN/D5w 25,000 UNITS 25,000 UNITS/250 ML IV.SOLN. 12 UNITS IV (16:58)
--- NOTE | 2018-07-05 17:47 | PN.CARD_ITS ---
Subjectve: The patient remains tired and short of breath. He has no new complaints of acute chest discomfort. Objective: Vital Signs Temp Pulse Resp BP Pulse Ox 99.1 F 88 17 105/63 96 07/05/18 14:30 07/05/18 14:30 07/05/18 14:30 07/05/18 14:30 07/05/18 14:30 Oxygen Flow Rate (L/min) 2 Oxygen Delivery Method Nasal Cannula Weight: 185 lb 13.595 oz Body Mass Index (BMI) 26.6 Intake and Output for Last 24 Hours 07/03/18 07/04/18 07/05/18 23:59 23:59 23:59 Intake Total 484 / 484 1126 / 1126 869 / 869 Balance 484 / 484 1126 / 1126 869 / 869 General: Awake, Alert, Oriented x 3, Cooperative, No Acute Distress HEENT: Atraumatic, Normocephalic, PERRL, EOMI, Sclera Non Icteric Oral: Moist Mucosa Neck: Supple, Good ROM, No JVD Lungs: Diminished Left Base Cardiovascular: Regular Rhythm, Normal S1, Normal S2 Abdomen: Bowel Sounds Present, Soft, Non Tender Extremities: No edema Psych/Mental Status: Appropriate 07/04/18 20:35: APTT 59.1 H 07/05/18 06:10: WBC 11.3 H, RBC 2.78 L, Hgb 8.4 L, Hct 26.2 L, MCV 94.2 H, MCH 30.2, MCHC 32.1, RDW 15.1 H, RDW Differential 49.5 H, Plt Count 249, MPV 9.2, Immature Gran % (Auto) 0.500, Neut % (Auto) 76.0 H, Lymph % (Auto) 8.0 L, [place] % (Auto) 13.2 H, Eos % (Auto) 2.0, Baso % (Auto) 0.3, Absolute Neuts (auto) 8.6 H, Total Counted Not Reportable 07/05/18 06:10: Sodium 135 L, Potassium 3.8, Chloride 100, Carbon Dioxide 25.0, Anion Gap 10, BUN 14, Creatinine 0.96, Est GFR (MDRD) Af Amer 101, Est GFR (MDRD) Non-Af 84, BUN/Creatinine Ratio 14.6, Glucose 97, Calcium 8.2 L 07/05/18 06:10: APTT 63.0 H Rhythm: Sinus rhythm ECHO: Preliminary evaluation: Left ventricle normal with an LVEF of 70%; please see official report Medical Necessity - Tobacco Use Smoking Status: Former smoker Assessment/Plan 1. Non-ST segment elevation NE The etiology for his abnormal cardiac enzymes raise concern of underlying cardiovascular disease with a primary acute coronary syndrome. The patient has been reevaluated for the possibility of an acute PE superimposed upon his chronic PEs. Based upon the radiology report it appears that there is still concern of his chronic PEs but no obvious new acute PE. There is been no obvious etiology for an acute CVA. He does not appear to be in acute renal insufficiency. He does not appear to be septic at this time. From a cardiac standpoint he will be treated medically which will include agents such as aspirin, antiplatelets, nitrates, beta-blockers, etc. as deemed appropriate. He has resumed anticoagulant therapy. He has undergone evaluation with a transthoracic echocardiogram as noted above. His overall LV wall motion and systolic function appear to be preserved at this time. It would not be unreasonable to consider further evaluation from a cardiac standpoint which would include a diagnostic cardiac catheterization. This would be to evaluate for CAD that would be amenable to percutaneous intervention that may assist with the patient's quality of life. He would not be a candidate for CT surgery based upon his diagnosis and his limited life expectancy per his department supervisor/oncologist. In the interim he has also been evaluated by pulmonology. There is a concern that he may need, based upon recurrent pleural effusions thought to be malignant, a Pleurx catheter placement. Pulmonology is considering this although would prefer this being done prior to the patient on sustained antiplatelet therapy that could not be interrupted, etc. Thus at the present time the patient will continue to be monitored. He will continue medical management. He will continue aspirin therapy without additional antiplatelet therapy. Depending upon the results of his thoracentesis, if he does need to proceed with a Pleurx catheter placement, then pulmonology will consider this. Once that occurs then the patient can consider proceeding with further evaluation in the cardiac catheterization laboratory, etc. 2. Hyperlipidemia He can continue evaluation care as deemed appropriate at this time. 3. Hypertension His blood pressure will be followed. He will continue medical adjustment as needed. 4. COPD He does have a history of underlying COPD. He is following with Dr. Mullen pulmonology. 5. 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 He recently underwent thoracentesis. He has a blood-tinged pleural effusion which raises concerns of a malignant pleural effusion. It may be related to his lung carcinoma. However, at the same time he also has a history of prostate carcinoma and thus contribution from this cannot be excluded. Again he is being considered by pulmonology for a possible Pleurx catheter placement. This depends upon the results of his thoracentesis and further recommendations by pulmonology. He is also been evaluated by hematology/oncology today as well. 6. Prostate carcinoma His hematology oncology notes it appears he also has a history of prostate carcinoma. Thus is unclear whether this may be contributing to his metastatic findings as well. 7. Pulmonary embolism He has had pulmonary embolism on more than one occasion. Based upon his CT scan it appears he has evidence of his previous pulmonary emboli without new acute pulmonary emboli. Of note, the patient states that for the time being he is decided that he will receive no additional chemotherapy, etc., for his underlying carcinoma diagnosis and/or static disease. He states he was told that he may only have approximately 6 months to live. He notes at the present time he is more concerned about his quality of life and his quantity of life. Based upon this, he may also decide not to pursue any additional aggressive evaluation or care and opt for hospice therapy. Comment: The above was discussed with the patient. This note was generated with [employer] dictation software. It may contain incorrect words, spelling, and punctuation that were not noted in checking the note before signing.
--- NOTE | 2018-07-05 18:13 | PCM.PN.HOSP ---
Patient Problems: Active and Suspected Problems (Last Updated 07/03/18 @ 12:52 by Doc Higuera MD) NSTEMI (non-ST elevated myocardial infarction) (Acute) Chest pain (Acute) Subjective: Patient with ongoing dyspnea, worse with exertion and notably weak and fatigued with any exertional attempts. Patient states that he feels unwell for discharge to home. Reviewed patient with cardiology as well as pulmonary and given patient status with pending cytology from thoracentesis as well as acute N STEMI plan for continued evaluation until cytology resulted on heparin drip given hold of oral anticoagulation for recent thoracenteses with recently noted incompletely occlusive thrombus of the right lower lobe pulmonary artery which has progressed into the segmental right lower lobe branches reflecting local disease secondary to stasis flow with possible cardiac catheterization if cytology negative given patient ongoing dyspnea. Patient denies fevers, chills, nausea, emesis, abdominal pain, chest pain. Objective: Physical Examination: General: awake, alert, oriented x 3 and cooperative, seated upright in bed in no apparent distress. Skin: normal color, turgor, no icterus, cyanosis. HEENT: AT/NC, EOMI, PERRLA, MMM. Lungs: Diminished breath sounds bilaterally, greater bases, effort increased with conversational attempts, no wheezing, crackles or rhonchi noted. Heart: Regular rate and rhythm; no gallop, rub audible. Abdomen: soft, NTTP, ND, normal BS, no HSM. Extremities: no cyanosis, clubbing, or edema. Neurological: patient awake, alert, oriented x 3; cognitive function intact; pupils equally reactive to light and accomodation; cranial nerves II-XII grossly normal, moving all 4 extremities, no focal deficits, strength Artley to severely globally decreased. Psychiatric: affect appears normal, no acute evidence of depressive or anxiety feelings. Vitals/I&O's: Vital Signs Temp Pulse Resp BP Pulse Ox 99.1 F 88 17 105/63 96 07/05/18 14:30 07/05/18 14:30 07/05/18 14:30 07/05/18 14:30 07/05/18 14:30 Oxygen Flow Rate (L/min) 2 Oxygen Delivery Method Nasal Cannula Weight: 185 lb 13.595 oz Body Mass Index (BMI) 26.6 Intake and Output for Last 24 Hours 12/08/2007/04/18 07/05/18 23:59 23:59 23:59 Intake Total 484 / 484 1126 / 1126 869 / 869 Balance 484 / 484 1126 / 1126 869 / 869 Laboratory Results 07/04/18 20:35: APTT 59.1 H 07/05/18 06:10: WBC 11.3 H, RBC 2.78 L, Hgb 8.4 L, Hct 26.2 L, MCV 94.2 H, MCH 30.2, MCHC 32.1, RDW 15.1 H, RDW Differential 49.5 H, Plt Count 249, MPV 9.2, Immature Gran % (Auto) 0.500, Neut % (Auto) 76.0 H, Lymph % (Auto) 8.0 L, [place] % (Auto) 13.2 H, Eos % (Auto) 2.0, Baso % (Auto) 0.3, Absolute Neuts (auto) 8.6 H, Absolute Lymphs (auto) 0.90, Total Counted Not Reportable 07/05/18 06:10: Sodium 135 L, Potassium 3.8, Chloride 100, Carbon Dioxide 25.0, Anion Gap 10, BUN 14, Creatinine 0.96, Estim Creat Clear Calc 79.21, Est GFR (MDRD) Af Amer 101, Est GFR (MDRD) Non-Af 84, BUN/Creatinine Ratio 14.6, Glucose 97, Calcium 8.2 L 07/05/18 06:10: APTT 63.0 H Current Medications Acetaminophen (Tylenol) 650 mg PO Q6H PRN PRN PRN Reason: Fever, headache, pain Last Admin: 07/05/18 09:46 Dose: 650 mg Albuterol Sulfate (Ventolin Aerosols) 2.5 mg INHALATION Q4H PRN PRN PRN Reason: Shortness of breath, wheezing. Aspirin (Aspirin, Baby) 81 mg PO DAILY@0800 [facility] Last Admin: 07/05/18 07:56 Dose: 81 mg Atorvastatin Calcium (Lipitor) 40 mg PO QHS [facility] Last Admin: 07/04/18 21:26 Dose: 40 mg Guaifenesin (Robitussin) 10 ml PO Q6H PRN PRN PRN Reason: COUGH Last Admin: 07/04/18 22:15 Dose: 10 ml Heparin Sodium (Porcine) (Heparin Na) 0 unit IV UD PRN; Protocol Hydromorphone HCl (Dilaudid Inj) 1 mg IV Q4H PRN PRN PRN Reason: SEVERE PAIN (6-10/10) Heparin Sodium/Dextrose () 25,000 units in 250 mls @ 12 mls/hr IV .[id number] [facility]; Protocol Last Admin: 07/05/18 16:58 Dose: 12 mls/hr Magnesium Hydroxide (Milk Of Magnesia) 30 ml PO DAILY PRN PRN Reason: Constipation Metoprolol Tartrate (Lopressor (Beta Lindsay)) 25 mg PO BID [facility] Last Admin: 07/05/18 09:38 Dose: 25 mg Nitroglycerin (Nitrobid) 1 inch TRANSDERM. Q8 [facility] Last Admin: 07/05/18 09:41 Dose: Not Given Nutritional Formula (Lactose Free) (Ensure Enlive) 120 ml PO 4X/DAY [facility] Last Admin: 07/05/18 15:11 Dose: Not Given Ondansetron HCl (Zofran) 4 mg IV Q6H PRN PRN PRN Reason: NAUSEA/VOMITING Oxycodone HCl (Oxyir) 5 mg PO Q6H PRN PRN PRN Reason: SEVERE PAIN (6-10/10) Sodium Chloride () 5 - 15 ml IV UD PRN PRN Reason: SALINE FLUSH Throat Lozenges (Cepacol Sore Throat Lozenge) 2 lozenge MUCOUS MEM Q2H PRN PRN PRN Reason: COUGH Last Admin: 07/05/18 12:07 Dose: 2 lozenge Zolpidem Tartrate (Ambien (Generic)) 5 mg PO QHS PRN PRN PRN Reason: SLEEP Last Admin: 07/03/18 21:33 Dose: 5 mg Medical Necessity - Tobacco Use Smoking Status: Former smoker Assessment/Plan All Active Problems (Last Updated 07/03/18 @ 12:52 by Doc Higuera MD) NSTEMI (non-ST elevated myocardial infarction) (Acute) Chest pain (Acute) Bone metastases (Acute) Pleural effusion, malignant (Acute) The patient is a 67 y/o M w/ PMHx: Chronic COPD, History of Non small cell Lung CA, HTN, HLD, History of Prostate CA who presents to the [facility] ED on 07/03/18 secondary to ongoing fatigue, weakness, dyspnea worse with any exertion s/p recent outpatient L sided thoracentesis. (1) Acute NSTEMI: EKG in ED w/ no acute evidence of ischemia, notable pulmonary process bilateral effusions now status post thoracenteses in addition to recent CTPA with progressing pulmonary emboli stasis flow. Trop elevated, 1.810-->1.920-->1.770. Patient maintained on a monitored bed, serial cardiac enzymes as noted and repeat EKGs. Magnesium requested. Maintained on heparin drip given oral anticoagulant held w/ recent thoracenteses. Continue medical management w/ asa, BB, statin w/ AM FLP obtained with noted triglycerides 108, cholesterol 165, LDL 108, VLDL 22, HDL 35. Cardiology consulted, discussed possibility for cardiac catheterization; however, currently pulmonary presentation complicates presentation and pulmonary medicine advising against catheterization at this time to which cardiology is amenable. ECHO w/ normal LV systolic function, EF 70%, mildly enlarged LA, trivial MDI, trivial TBI, mild focal AV thickening, trivial PVI, no evidence diastolic dysfunction. ASA, NG, morphine. PT, OT, CM, plan for SNF transition given severity of fatigue, weakness and debility. (2) History of non-small cell lung cancer with recurrent L pleural effusion: CT abdomen and pelvis upon presentation with noted worsening consolidations and effusions at the left lung base and nodular changes at the right lung base with partially visualized right hilar and subcarinal lymphadenopathy. CTPA with stable multiple moderate sized left pleural effusion, few gas bubbles present in the fluid along the posterior lateral left mid chest raising some concern about possibility of evolving empyema with stable partial collapse of left lower lobe, worsened infrahilar right base peribronchial thickening and ill-defined stranding and inflammatory change or volume loss, stable nodule in the posterior tory-referral right lower lobe, occasional calcified granulomata, grossly stable mediastinal, subcarinal and right hilar lymphadenopathy with confluent soft tissue density encasing the central right bronchovascular structures, incompletely occlusive thrombus in the right lower lobe pulmonary artery which is progressed into the segmental right lower lobe branches reflecting local disease secondary to stasis flow rather than any acute pulmonary emboli. 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 07/02/18 L thoracentesis performed, pending cytology. (3) History of DVT, PE: Recent hold on anticoagulation for planned thoracentesis, CTPA obtained on 07/03/18 with noted incompletely occlusive thrombus in the right lower lobe pulmonary artery which has progressed into the segmental right lower lobe branches reflecting local disease secondary to stasis of flow rather than any acute pulmonary embolism. Patient continued on heparin drip given possible need for cardiac catheterization and recent thoracentesis. (4) History of Prostate CA: As noted, recent follow-up for non-small cell lung CA w/ notable PET scan w/ involvement of lymph nodes in the pelvic region possibly secondary to recurrent lung cancer versus recurrent prostate cancer. Cytology pending as noted above. Patient is status post radical prostatectomy followed by adjuvant radiation therapy in 2014 maintained on ADT since 2016 secondary to PSA relapse. (5) Chronic COPD: ATC duonebs, PRN albuterol, HOB, IS parameters. (6) AOCD: Admission Hgb 9.7, 07/05/18 Hgb 8.4, continue to trend. (7) DVT prophylaxis: SCDs, heparin drip. (8) Code Status: DNR-CC; however, given ongoing treatment will need to be re-discussed, will await pathology to further discuss. Code Visit Inpatient E&M: 27505 Subs Hosp L3
--- NOTE | 2018-07-05 18:30 | PN_ITS ---
Patient Problems: Active and Suspected Problems (Last Updated 07/03/18 @ 12:52 by Doc Higuera MD) NSTEMI (non-ST elevated myocardial infarction) (Acute) Chest pain (Acute) Subjective: Patient with ongoing dyspnea, worse with exertion and notably weak and fatigued with any exertional attempts. Patient states that he feels unwell for discharge to home. Reviewed patient with cardiology as well as pulmonary and given patient status with pending cytology from thoracentesis as well as acute N STEMI plan for continued evaluation until cytology resulted on heparin drip given hold of oral anticoagulation for recent thoracenteses with recently noted incompletely occlusive thrombus of the right lower lobe pulmonary artery which has progressed into the segmental right lower lobe branches reflecting local disease secondary to stasis flow with possible cardiac catheterization if cytology negative given patient ongoing dyspnea. Patient denies fevers, chills, nausea, emesis, abdominal pain, chest pain. Objective: Physical Examination: General: awake, alert, oriented x 3 and cooperative, seated upright in bed in no apparent distress. Skin: normal color, turgor, no icterus, cyanosis. HEENT: AT/NC, EOMI, PERRLA, MMM. Lungs: Diminished breath sounds bilaterally, greater bases, effort increased with conversational attempts, no wheezing, crackles or rhonchi noted. Heart: Regular rate and rhythm; no gallop, rub audible. Abdomen: soft, NTTP, ND, normal BS, no HSM. Extremities: no cyanosis, clubbing, or edema. Neurological: patient awake, alert, oriented x 3; cognitive function intact; pupils equally reactive to light and accomodation; cranial nerves II-XII grossly normal, moving all 4 extremities, no focal deficits, strength [place] to severely globally decreased. Psychiatric: affect appears normal, no acute evidence of depressive or anxiety feelings. Vitals/I&O's: Vital Signs Temp Pulse Resp BP Pulse Ox 99.1 F 88 17 105/63 96 07/05/18 14:30 07/05/18 14:30 07/05/18 14:30 07/05/18 14:30 07/05/18 14:30 Oxygen Flow Rate (L/min) 2 Oxygen Delivery Method Nasal Cannula Weight: 185 lb 13.595 oz Body Mass Index (BMI) 26.6 Intake and Output for Last 24 Hours 12/08/2007/04/18 07/05/18 23:59 23:59 23:59 Intake Total 484 / 484 1126 / 1126 869 / 869 Balance 484 / 484 1126 / 1126 869 / 869 Laboratory Results 07/04/18 20:35: APTT 59.1 H 07/05/18 06:10: WBC 11.3 H, RBC 2.78 L, Hgb 8.4 L, Hct 26.2 L, MCV 94.2 H, MCH 30.2, MCHC 32.1, RDW 15.1 H, RDW Differential 49.5 H, Plt Count 249, MPV 9.2, Immature Gran % (Auto) 0.500, Neut % (Auto) 76.0 H, Lymph % (Auto) 8.0 L, [place] % (Auto) 13.2 H, Eos % (Auto) 2.0, Baso % (Auto) 0.3, Absolute Neuts (auto) 8.6 H, Absolute Lymphs (auto) 0.90, Total Counted Not Reportable 07/05/18 06:10: Sodium 135 L, Potassium 3.8, Chloride 100, Carbon Dioxide 25.0, Anion Gap 10, BUN 14, Creatinine 0.96, Estim Creat Clear Calc 79.21, Est GFR (MDRD) Af Amer 101, Est GFR (MDRD) Non-Af 84, BUN/Creatinine Ratio 14.6, Glucose 97, Calcium 8.2 L 07/05/18 06:10: APTT 63.0 H Current Medications Acetaminophen (Tylenol) 650 mg PO Q6H PRN PRN PRN Reason: Fever, headache, pain Last Admin: 07/05/18 09:46 Dose: 650 mg Albuterol Sulfate (Ventolin Aerosols) 2.5 mg INHALATION Q4H PRN PRN PRN Reason: Shortness of breath, wheezing. Aspirin (Aspirin, Baby) 81 mg PO DAILY@0800 [facility] Last Admin: 07/05/18 07:56 Dose: 81 mg Atorvastatin Calcium (Lipitor) 40 mg PO QHS [facility] Last Admin: 07/04/18 21:26 Dose: 40 mg Guaifenesin (Robitussin) 10 ml PO Q6H PRN PRN PRN Reason: COUGH Last Admin: 07/04/18 22:15 Dose: 10 ml Heparin Sodium (Porcine) (Heparin Na) 0 unit IV UD PRN; Protocol Hydromorphone HCl (Dilaudid Inj) 1 mg IV Q4H PRN PRN PRN Reason: SEVERE PAIN (6-10/10) Heparin Sodium/Dextrose () 25,000 units in 250 mls @ 12 mls/hr IV .[id number] [facility]; Protocol Last Admin: 07/05/18 16:58 Dose: 12 mls/hr Magnesium Hydroxide (Milk Of Magnesia) 30 ml PO DAILY PRN PRN Reason: Constipation Metoprolol Tartrate (Lopressor (Beta Lindsay)) 25 mg PO BID [facility] Last Admin: 07/05/18 09:38 Dose: 25 mg Nitroglycerin (Nitrobid) 1 inch TRANSDERM. Q8 [facility] Last Admin: 07/05/18 09:41 Dose: Not Given Nutritional Formula (Lactose Free) (Ensure Enlive) 120 ml PO 4X/DAY [facility] Last Admin: 07/05/18 15:11 Dose: Not Given Ondansetron HCl (Zofran) 4 mg IV Q6H PRN PRN PRN Reason: NAUSEA/VOMITING Oxycodone HCl (Oxyir) 5 mg PO Q6H PRN PRN PRN Reason: SEVERE PAIN (6-10/10) Sodium Chloride () 5 - 15 ml IV UD PRN PRN Reason: SALINE FLUSH Throat Lozenges (Cepacol Sore Throat Lozenge) 2 lozenge MUCOUS MEM Q2H PRN PRN PRN Reason: COUGH Last Admin: 07/05/18 12:07 Dose: 2 lozenge Zolpidem Tartrate (Ambien (Generic)) 5 mg PO QHS PRN PRN PRN Reason: SLEEP Last Admin: 07/03/18 21:33 Dose: 5 mg Medical Necessity - Tobacco Use Smoking Status: Former smoker Assessment/Plan All Active Problems (Last Updated 07/03/18 @ 12:52 by Doc Higuera MD) NSTEMI (non-ST elevated myocardial infarction) (Acute) Chest pain (Acute) Bone metastases (Acute) Pleural effusion, malignant (Acute) The patient is a 67 y/o M w/ PMHx: Chronic COPD, History of Non small cell Lung CA, HTN, HLD, History of Prostate CA who presents to the [facility] ED on 07/03/18 secondary to ongoing fatigue, weakness, dyspnea worse with any exertion s/p recent outpatient L sided thoracentesis. (1) Acute NSTEMI: EKG in ED w/ no acute evidence of ischemia, notable pulmonary process bilateral effusions now status post thoracenteses in addition to recent CTPA with progressing pulmonary emboli stasis flow. Trop elevated, 1.810-->1.920-->1.770. Patient maintained on a monitored bed, serial cardiac enzymes as noted and repeat EKGs. Magnesium requested. Maintained on heparin drip given oral anticoagulant held w/ recent thoracenteses. Continue medical man agement w/ asa, BB, statin w/ AM FLP obtained with noted triglycerides 108, cholesterol 165, LDL 108, VLDL 22, HDL 35. Cardiology consulted, discussed possibility for cardiac catheterization; however, currently pulmonary presentation complicates presentation and pulmonary medicine advising against catheterization at this time to which cardiology is amenable. ECHO w/ normal LV systolic function, EF 70%, mildly enlarged LA, trivial MDI, trivial TBI, mild focal AV thickening, trivial PVI, no evidence diastolic dysfunction. ASA, NG, morphine. PT, OT, CM, plan for SNF transition given severity of fatigue, weakness and debility. (2) History of non-small cell lung cancer with recurrent L pleural effusion: CT abdomen and pelvis upon presentation with noted worsening consolidations and effusions at the left lung base and nodular changes at the right lung base with partially visualized right hilar and subcarinal lymphadenopathy. CTPA with stable multiple moderate sized left pleural effusion, few gas bubbles present in the fluid along the posterior lateral left mid chest raising some concern about possibility of evolving empyema with stable partial collapse of left lower lobe, worsened infrahilar right base peribronchial thickening and ill-defined stranding and inflammatory change or volume loss, stable nodule in the posterior tory-referral right lower lobe, occasional calcified granulomata, grossly stable mediastinal, subcarinal and right hilar lymphadenopathy with confluent soft tissue density encasing the central right bronchovascular structures, incompletely occlusive thrombus in the right lower lobe pulmonary artery which is progressed into the segmental right lower lobe branches reflecting local disease secondary to stasis flow rather than any acute pulmonary emboli. 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 07/02/18 L thoracentesis performed, pending cytology. (3) History of DVT, PE: Recent hold on anticoagulation for planned thoracentesis, CTPA obtained on 07/03/18 with noted incompletely occlusive thrombus in the right lower lobe pulmonary artery which has progressed into the segmental right lower lobe branches reflecting local disease secondary to stasis of flow rather than any acute pulmonary embolism. Patient continued on heparin drip given possible need for cardiac catheterization and recent thoracentesis. (4) History of Prostate CA: As noted, recent follow-up for non-small cell lung CA w/ notable PET scan w/ involvement of lymph nodes in the pelvic region possibly secondary to recurrent lung cancer versus recurrent prostate cancer. Cytology pending as noted above. Patient is status post radical prostatectomy followed by adjuvant radiation therapy in 2014 maintained on ADT since 2016 secondary to PSA relapse. (5) Chronic COPD: ATC duonebs, PRN albuterol, HOB, IS parameters. (6) AOCD: Admission Hgb 9.7, 07/05/18 Hgb 8.4, continue to trend. (7) DVT prophylaxis: SCDs, heparin drip. (8) Code Status: DNR-CC; however, given ongoing treatment will need to be re- discussed, will await pathology to further discuss. Code Visit Inpatient E&M: 61568 Subs Hosp L3
[2018-07-05] MEDS: Atorvastatin Calcium 40 MG Tablet PO (23:14)
[2018-07-06] VITALS (14 sets, daily range): BP systolic 95–130; BP diastolic 59–73; PULSE 78–114; RESP 16–20; TEMP 36.9–38.1; O2SAT 95–97
--- NOTE | 2018-07-06 05:55 | RAD_ITS ---
STUDY: X-RAY CHEST REASON FOR EXAM: Male, 67 years old. Short of breath, dyspnea TECHNIQUE: Single AP portable view of the chest. COMPARISON: 07/03/2018, chest x-ray and CT chest. FINDINGS: Stable elevation left hemidiaphragm, left pleural effusion and airspace disease in the left perihilar parenchyma appears decreased, likely underlying atelectasis. There is continuous interstitial prominence particularly in the right base and perihilar parenchyma with peribronchial cuffing, stable scattered calcified nodules. No right pleural effusion. Obscured size of heart. Normal mediastinum and quinton. Normal visualized pulmonary arteries. There is atherosclerotic calcification of the aortic arch with tortuosity. There are diffuse degenerative changes of the visualized thoracic spine. Normal visualized ribs, clavicles, and shoulders. There is no demonstrated abnormality of the visualized soft tissue structures of the upper abdomen. RAD/Chest 1 View (Portable) IMPRESSION: Stable elevation of the left hemidiaphragm, left pleural effusion and atelectasis and interstitial lung disease involving the right hilar and basilar parenchyma. Minimal improved aeration in the left perihilar parenchyma. Electronically Signed: Kaylene Molina MD at 5:31 EST , Service support ,
[2018-07-06 07:01] LABS: Hemoglobin 8.4 g/dl (13.0-16.5); Mean Corp Hgb Conc 32.3 g/gl (32-36); Mean Corpuscular Hgb 30.5 pg (27.0-32.0); Mean Corpuscular Volume 94.5 fL (80-94); Mean Platelet Vol. 9.3 fl (6.2-12.0); Platelet Count 293 K/mm3 (150-450); RBC Distribution Width CV 15.3 % (11.6-14.6); Red Blood Count 2.75 M/mm3 (4.6-6.2); White Blood Count 11.9 K/mm3 (4.4-11.0)
[2018-07-06 07:02] LABS: Scan Indicated on CBC? Y/N NO
[2018-07-06 07:09] LABS: Partial Thromboplast Time 67.2 Seconds (24.1-36.2)
--- NOTE | 2018-07-06 07:13 | PCM.PROGNOTE ---
Patient Problems: Active and Suspected Problems (Last Updated 07/03/18 @ 12:52 by Doc Higuera MD) NSTEMI (non-ST elevated myocardial infarction) (Acute) Chest pain (Acute) Subjective: The patient was seen and examined at the bedside this morning. Events from the last 24 hours have been reviewed. The patient is currently afebrile, hemodynamically stable and maintaining appropriate oxygen saturations on 2 L/min via nasal cannula. I did call and speak with pathology this afternoon, who indicated that the patient's pleural fluid cytology is suggestive of non-small cell carcinoma. The patient also had a repeat plain film chest x-ray this morning, which was personally reviewed and revealed a stable appearing left-sided pleural effusion, which is moderate in size, along with continued right perihilar interstitial prominence. The patient continues to experience ongoing shortness of breath. Objective: The patient's most recent lab work, culture data and imaging studies have all been personally reviewed. Surface echocardiogram revealed normal LV size and function with an ejection fraction of 70%. Right ventricular systolic pressure was unable to be estimated. - Physical Exam General: Alert, Oriented x3, Cooperative, No apparent distress HEENT: Atraumatic, PERRLA, Normocephalic Oral: Moist Mucosa, No Gingival or Mucosal Lesions/ Ulcerations Neck: Supple, No Nodes, Trachea Midline Lungs: No rhonchi, No wheeze, No rales, Diminished Cardiovascular: Regular rate, Regular Rhythm, Normal S1, Normal S2, No murmurs Abdomen: Bowel Sounds Present, Soft, Non Tender Extremities: No clubbing, No cyanosis, No edema Skin: No breakdown Musculoskeletal: No Tenderness to Palpation of Joints or Extremities Neurological: Cranial nerves II-XII grossly intact, Neuro grossly intact Psych/Mental Status: Alert and oriented to time, place, person, mood and affect Vital Signs Temp Pulse Resp BP Pulse Ox 36.9 C 83 18 95/59 L 96 07/06/18 05:40 07/06/18 05:40 07/06/18 05:40 07/06/18 05:40 07/06/18 05:40 Oxygen Flow Rate (L/min) 2 Oxygen Delivery Method Nasal Cannula Weight: 185 lb 13.595 oz Body Mass Index (BMI) 26.6 Intake and Output for Last 24 Hours 07/04/18 07/05/18 07/06/18 23:59 23:59 23:59 Intake Total 1126 / 1126 1356.3 / 1356.3 161 / 161 Balance 1126 / 1126 1356.3 / 1356.3 161 / 161 Laboratory Tests Past 24 Hrs 07/05/18 07/06/18 07/06/18 06:10 06:05 06:05 WBC 11.9 H RBC 2.75 L Hgb 8.4 L Hct 26.0 L MCV 94.5 H MCH 30.5 MCHC 32.3 RDW 15.3 H RDW Differential 51.0 H Plt Count 293 MPV 9.3 APTT 67.2 H Magnesium 2.0 Labs (Last 48 Hours) 07/04/18 07/04/18 07/04/18 08:46 14:41 20:35 WBC RBC Hgb Hct MCV MCH MCHC RDW RDW Differential Plt Count MPV Immature Gran % (Auto) Neut % (Auto) Lymph % (Auto) [place] % (Auto) Eos % (Auto) Baso % (Auto) Absolute Neuts (auto) Absolute Lymphs (auto) Total Counted APTT 75.0 H 63.7 H 59.1 H Sodium Potassium Chloride Carbon Dioxide Anion Gap BUN Creatinine Estim Creat Clear Calc Est GFR (MDRD) Af Amer Est GFR (MDRD) Non-Af BUN/Creatinine Ratio Glucose Calcium Magnesium 07/05/18 07/05/18 07/05/18 06:10 06:10 06:10 WBC 11.3 H RBC 2.78 L Hgb 8.4 L Hct 26.2 L MCV 94.2 H MCH 30.2 MCHC 32.1 RDW 15.1 H RDW Differential 49.5 H Plt Count 249 MPV 9.2 Immature Gran % (Auto) 0.500 Neut % (Auto) 76.0 H Lymph % (Auto) 8.0 L [place] % (Auto) 13.2 H Eos % (Auto) 2.0 Baso % (Auto) 0.3 Absolute Neuts (auto) 8.6 H Absolute Lymphs (auto) 0.90 Total Counted Not Reportable APTT 63.0 H Sodium 135 L Potassium 3.8 Chloride 100 Carbon Dioxide 25.0 Anion Gap 10 BUN 14 Creatinine 0.96 Estim Creat Clear Calc 79.21 Est GFR (MDRD) Af Amer 101 Est GFR (MDRD) Non-Af 84 BUN/Creatinine Ratio 14.6 Glucose 97 Calcium 8.2 L Magnesium 07/05/18 07/06/18 07/06/18 06:10 06:05 06:05 WBC 11.9 H RBC 2.75 L Hgb 8.4 L Hct 26.0 L MCV 94.5 H MCH 30.5 MCHC 32.3 RDW 15.3 H RDW Differential 51.0 H Plt Count 293 MPV 9.3 Immature Gran % (Auto) Neut % (Auto) Lymph % (Auto) [place] % (Auto) Eos % (Auto) Baso % (Auto) Absolute Neuts (auto) Absolute Lymphs (auto) Total Counted APTT 67.2 H Sodium Potassium Chloride Carbon Dioxide Anion Gap BUN Creatinine Estim Creat Clear Calc Est GFR (MDRD) Af Amer Est GFR (MDRD) Non-Af BUN/Creatinine Ratio Glucose Calcium Magnesium 2.0 Clinical Impression(s) from Imaging Studies Abdomen/Pelvis CT 07/03/18 09:21 IMPRESSION: Worsening consolidations and effusions at the left lung base and nodular changes at the right lung base. Partially visualized right hilar and subcarinal lymphadenopathy. Bilateral renal cysts. Electronically Signed: Fritz Lee, at 10:19 EST Tel , Service support , Chest X-Ray 07/03/18 09:21 IMPRESSION: Stable-appearing consolidation and effusion at the left lung base. Electronically Signed: Fritz Lee, at 10:34 EST Tel , Service support , Chest CTA 07/03/18 14:04 IMPRESSION: 1. Stable multiple moderate size left pleural effusion. A few gas bubbles now present in the fluid along the posterolateral left mid chest, raising concern of evolving empyema. There is stable partial collapse of the left lower lobe. 2. Worsened infrahilar right base peribronchial thickening and ill-defined stranding of inflammatory change or volume loss/crowding. Stable 7 mm nodule in the posterior peripheral right lower lobe. Occasional calcified granulomata also noted. 3. Grossly stable mediastinal, subcarinal, and right hilar lymphadenopathy, with confluent soft tissue density encasing the central right bronchovascular structures. 4. Incompletely occlusive thrombus in the right lower lobe pulmonary artery has progressed into the segmental right lower lobe branches. This likely reflects local disease secondary to stasis of flow rather than acute pulmonary embolus. Electronically Signed: Collin Michael MD at 17:19 EST , Service support , ADDENDUM: 07/03/18 1729 Chest X-Ray 07/06/18 05:55 IMPRESSION: Stable elevation of the left hemidiaphragm, left pleural effusion and atelectasis and interstitial lung disease involving the right hilar and basilar parenchyma. Minimal improved aeration in the left perihilar parenchyma. Electronically Signed: Kaylene Molina MD at 5:31 EST , Service support , Medical Necessity - Tobacco Use Smoking Status: Former smoker Assessment/Plan All Active Problems (Last Updated 07/03/18 @ 12:52 by Doc Higuera MD) NSTEMI (non-ST elevated myocardial infarction) (Acute) Chest pain (Acute) Bone metastases (Acute) Pleural effusion, malignant (Acute) RECOMMENDATIONS: 1. Plan for repeat therapeutic thoracentesis tomorrow. 2. Continue bronchodilators. 3. Continue heparin drip for now. 4. Medical management of NSTEMI per cardiology recommendations. 5. Consider palliative care consultation. IMPRESSIONS: 1. History of non-small cell lung cancer with concern for recurrence/concern for malignant pleural effusion The patient is currently active with oncology and recently underwent a thoracentesis on 07/02. Per my discussion with pathology this afternoon, the patient's pleural fluid is also positive for the presence of non-small cell carcinoma. Therefore, the patient appears to have stage IV recurrent non-small cell carcinoma. PDL 1 is pending. At this time, the patient seems to be more focused on his comfort then in pursuing aggressive treatment. I would strongly urge the oncology team to come have a repeat discussion with the patient regarding potential treatment options. I do believe that it would be beneficial for the patient to be evaluated by palliative care, regardless. Additionally, I would also plan to pursue a repeat thoracentesis tomorrow, if possible, to see if removing additional pleural fluid would provide symptom relief for the patient. 2. Venous thromboembolic disease The patient is currently on a heparin drip, having been transitioned from his outpatient Lovenox. However, the patient's Lovenox had been transiently discontinued to allow for the patient's recent thoracentesis. 3. History of COPD The patient currently follows with Dr. Mullen on an outpatient basis. Continue scheduled bronchodilators. 4. Non-ST segment elevation SC The patient is currently being followed by cardiology. Would strongly recommend holding off on any potential cardiac catheterization, given the patient's recurrent lung cancer and need for potential future Pleurx catheter placement. 5. Hypertension/hyperlipidemia/personal history of prostate CA Complicates care, management, recovery and prognosis. Likely okay to continue home medications as indicated. This note was generated with [employer] dictation software. It may contain incorrect words, spelling, and punctuation that were not noted in checking the note before signing. Code Visit Inpatient E&M: 70370 [facility] Hosp L3
--- NOTE | 2018-07-06 08:28 | PCM.PN.HOSP ---
Patient Problems: Active and Suspected Problems (Last Updated 07/03/18 @ 12:52 by Doc Higuera MD) NSTEMI (non-ST elevated myocardial infarction) (Acute) Chest pain (Acute) Subjective: Patient overnight with continued dyspnea, worse with any exertional attempts. Alfonso discussion today regarding preliminary pathology with cytology most consistent with recurrent non-small cell lung cancer which at this point given in the pleural fluid would be immediately stage IV. Patient has already poor prognosis he notes 6 months timeline from oncology. Patient not interested in continuing with aggressive therapies. Patient is interested in attempting repeat thoracentesis, more aggressive in nature to ascertain if possible candidate for future Pleurx catheter. Patient interested in hospice which will be arranged following thoracentesis to which patient and family were amenable. Patient denies fevers, chills, nausea, emesis, abdominal pain, chest pain. Objective: Physical Examination: General: awake, alert, oriented x 3 and cooperative, seated upright in bed in no apparent distress, fatigued appearance. Skin: normal color, turgor, no icterus, cyanosis. HEENT: AT/NC, EOMI, PERRLA, MMM. Lungs: Diminished breath sounds bilaterally, greater bases, effort increased with conversational attempts, no wheezing, crackles or rhonchi noted. Heart: Regular rate and rhythm; no gallop, rub audible. Abdomen: soft, NTTP, ND, normal BS. Extremities: no cyanosis, clubbing, trace BL ankle edema. Neurological: patient awake, alert, oriented x 3; cognitive function intact; pupils equally reactive to light and accomodation; cranial nerves II-XII grossly normal, moving all 4 extremities, no focal deficits, strength severely globally decreased. Psychiatric: affect appears fatigued, no acute evidence of depressive or anxiety feelings. Vitals/I&O's: Vital Signs Temp Pulse Resp BP Pulse Ox 98.5 F 84 18 95/59 L 95 07/06/18 05:40 07/06/18 06:47 07/06/18 05:40 07/06/18 05:40 07/06/18 07:52 Oxygen Flow Rate (L/min) 2 Oxygen Delivery Method Nasal Cannula Weight: 185 lb 13.595 oz Body Mass Index (BMI) 26.6 Intake and Output for Last 24 Hours 07/04/18 07/05/18 07/06/18 23:59 23:59 23:59 Intake Total 1126 / 1126 1356.3 / 1356.3 161 / 161 Balance 1126 / 1126 1356.3 / 1356.3 161 / 161 Laboratory Results 07/05/18 06:10: Magnesium 2.0 07/06/18 06:05: APTT 67.2 H 07/06/18 06:05: WBC 11.9 H, RBC 2.75 L, Hgb 8.4 L, Hct 26.0 L, MCV 94.5 H, MCH 30.5, MCHC 32.3, RDW 15.3 H, RDW Differential 51.0 H, Plt Count 293, MPV 9.3 Current Medications Acetaminophen (Tylenol) 650 mg PO Q6H PRN PRN PRN Reason: Fever, headache, pain Last Admin: 07/05/18 23:12 Dose: 650 mg Albuterol Sulfate (Ventolin Aerosols) 2.5 mg INHALATION Q4H PRN PRN PRN Reason: Shortness of breath, wheezing. Aspirin (Aspirin, Baby) 81 mg PO DAILY@0800 [facility] Last Admin: 07/05/18 07:56 Dose: 81 mg Atorvastatin Calcium (Lipitor) 40 mg PO QHS [facility] Last Admin: 07/05/18 23:14 Dose: 40 mg Guaifenesin (Robitussin) 10 ml PO Q6H PRN PRN PRN Reason: COUGH Last Admin: 07/04/18 22:15 Dose: 10 ml Heparin Sodium (Porcine) (Heparin Na) 0 unit IV UD PRN; Protocol Hydromorphone HCl (Dilaudid Inj) 1 mg IV Q4H PRN PRN PRN Reason: SEVERE PAIN (6-10/10) Heparin Sodium/Dextrose () 25,000 units in 250 mls @ 12 mls/hr IV .[id number] [facility]; Protocol Last Admin: 07/05/18 16:58 Dose: 12 mls/hr Magnesium Hydroxide (Milk Of Magnesia) 30 ml PO DAILY PRN PRN Reason: Constipation Metoprolol Tartrate (Lopressor (Beta Lindsay)) 25 mg PO BID [facility] Last Admin: 07/05/18 23:13 Dose: 25 mg Nitroglycerin (Nitrobid) 1 inch TRANSDERM. Q8 [facility] Last Admin: 07/06/18 05:32 Dose: Not Given Nutritional Formula (Lactose Free) (Ensure Enlive) 120 ml PO 4X/DAY [facility] Last Admin: 07/05/18 23:14 Dose: Not Given Ondansetron HCl (Zofran) 4 mg IV Q6H PRN PRN PRN Reason: NAUSEA/VOMITING Oxycodone HCl (Oxyir) 5 mg PO Q6H PRN PRN PRN Reason: SEVERE PAIN (6-10/10) Sodium Chloride () 5 - 15 ml IV UD PRN PRN Reason: SALINE FLUSH Throat Lozenges (Cepacol Sore Throat Lozenge) 2 lozenge MUCOUS MEM Q2H PRN PRN PRN Reason: COUGH Last Admin: 07/05/18 12:07 Dose: 2 lozenge Zolpidem Tartrate (Ambien (Generic)) 5 mg PO QHS PRN PRN PRN Reason: SLEEP Last Admin: 07/03/18 21:33 Dose: 5 mg Medical Necessity - Tobacco Use Smoking Status: Former smoker Assessment/Plan All Active Problems (Last Updated 07/03/18 @ 12:52 by Doc Higuera MD) NSTEMI (non-ST elevated myocardial infarction) (Acute) Chest pain (Acute) Bone metastases (Acute) Pleural effusion, malignant (Acute) The patient is a 67 y/o M w/ PMHx: Chronic COPD, History of Non small cell Lung CA, HTN, HLD, History of Prostate CA who presents to the [facility] ED on 07/03/18 secondary to ongoing fatigue, weakness, dyspnea worse with any exertion s/p recent outpatient L sided thoracentesis. (1) Acute NSTEMI: EKG in ED w/ no acute evidence of ischemia, notable pulmonary process bilateral effusions now status post thoracenteses in addition to recent CTPA with progressing pulmonary emboli stasis flow. Trop elevated, 1.810-->1.920-->1.770. Patient maintained on a monitored bed, serial cardiac enzymes as noted and repeat EKGs. Magnesium requested. Maintained on heparin drip given oral anticoagulant held w/ recent thoracenteses and planned repeat AM thoracentesis. Continue medical management w/ asa, BB, statin w/ AM FLP obtained with noted triglycerides 108, cholesterol 165, LDL 108, VLDL 22, HDL 35. Cardiology consulted, discussed possibility for cardiac catheterization; however, currently pulmonary presentation complicates presentation and pulmonary medicine advising against catheterization at this time to which cardiology is amenable. ECHO w/ normal LV systolic function, EF 70%, mildly enlarged LA, trivial MDI, trivial TBI, mild focal AV thickening, trivial PVI, no evidence diastolic dysfunction. ASA, NG, morphine. PT, OT, CM, plan for SNF transition versus Inpatient Hospice Facility given plan for Hospice transition given severity of fatigue, weakness and debility. (2) History of non-small cell lung cancer with recurrent L pleural effusion w/ Ongoing Dyspnea: CT abdomen and pelvis upon presentation with noted worsening consolidations and effusions at the left lung base and nodular changes at the right lung base with partially visualized right hilar and subcarinal lymphadenopathy. CTPA with stable multiple moderate sized left pleural effusion, few gas bubbles present in the fluid along the posterior lateral left mid chest raising some concern about possibility of evolving empyema with stable partial collapse of left lower lobe, worsened infrahilar right base peribronchial thickening and ill-defined stranding and inflammatory change or volume loss, stable nodule in the posterior tory-referral right lower lobe, occasional calcified granulomata, grossly stable mediastinal, subcarinal and right hilar lymphadenopathy with confluent soft tissue density encasing the central right bronchovascular structures, incompletely occlusive thrombus in the right lower lobe pulmonary artery which is progressed into the segmental right lower lobe branches reflecting local disease secondary to stasis flow rather than any acute pulmonary emboli. 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 07/02/18 L thoracentesis performed, cytology preliminary consistent with recurrent non-small cell lung cancer and repeat CXR AM with moderate sized pleural effusion despite recent thoracentesis. Discussed plan of care with patient and pulmonary and will request repeat more aggressive L sided thoracentesis in AM, therapeutic only to ascertain also if future need for pleurex catheter for comfort. Following plan consultation w/ Hospice. (3) History of DVT, PE: Recent hold on anticoagulation for planned thoracentesis, CTPA obtained on 07/03/18 with noted incompletely occlusive thrombus in the right lower lobe pulmonary artery which has progressed into the segmental right lower lobe branches reflecting local disease secondary to stasis of flow rather than any acute pulmonary embolism. Patient continued on heparin drip given possible need for cardiac catheterization and recent thoracentesis. (4) History of Prostate CA: As noted, recent follow-up for non-small cell lung CA w/ notable PET scan w/ involvement of lymph nodes in the pelvic region possibly secondary to recurrent lung cancer versus recurrent prostate cancer. Cytology pending as noted above. Patient is status post radical prostatectomy followed by adjuvant radiation therapy in 2015 maintained on ADT since 2016 secondary to PSA relapse. (5) Chronic COPD: ATC duonebs, PRN albuterol, HOB, IS parameters. (6) AOCD: Admission Hgb 9.7, 07/05/18 Hgb 8.4-->07/06/18, continue to trend. (7) DVT prophylaxis: SCDs, heparin drip w/ plan for AM hold for repeat L sided thoracentesis. (8) CODE status: Discussed CODE status at length and current poor prognosis, patient interested in comfort measures at this time. Amenable to discussion of preliminary results of cytology on L thoracentesis fluid, but interested in consultation w/ Hospice. Discussed plan of care to obtain AM repeat thoracentesis more aggressively to ascertain in future if pleurex catheter may be assistive. Advanced Care Planning Face to Face Time: 20 minutes. Code Visit Inpatient E&M: 13993 Subs Hosp L3 Procedures: 83555 Advncd Care Plan 30 Min
[2018-07-06] MEDS: Aspirin 81 MG TAB.CHEW PO (09:02)
--- NOTE | 2018-07-06 11:47 | CASEMGMT ---
Physician indicated patient is in agreement with going to a alf for rehab. SW met with patient and his and they were undecided as far as what they are going to do at d/c. She said they have managed fine so far at home and she would like him to go home. They said a lot depends on the results of his thoracentesis. They wanted to think about it and wait on his results. SW did give them a list of facilities. Selena WORTHINGTON MSW
--- NOTE | 2018-07-06 13:47 | US_ITS ---
STUDY: ASSESSMENT OF THE LEFT PLEURAL EFFUSION. REASON FOR EXAM: Male, 67 years old. Possible left pleural effusion. TECHNIQUE: Imaging of the left pleural cavity was performed for assessment of effusion and possible pleurocentesis. COMPARISON: Comparison is made with prior study dated July 02, 2018. FINDINGS: There is a small left pleural effusion. This is too small for safe thoracentesis. US/Chest IMPRESSION: Small left pleural effusion. This is too small for a left thoracentesis. Electronically Signed: Chacho Babcock MD at 14:51 EST Tel [phone], Service support ,
[2018-07-06] MEDS: HEPARIN/D5w 25,000 UNITS 25,000 UNITS/250 ML IV.SOLN. 12 UNITS IV (17:05)
[2018-07-06] MEDS: Acetaminophen 325 MG Tablet 650 MG PO (17:10)
--- NOTE | 2018-07-06 19:16 | PN.CARD_ITS ---
Subjectve: The patient continues with his main concern of shortness of breath and dyspnea. He has this at rest as well as with exertion. However he does not describe orthopnea or PND. Objective: Vital Signs Temp Pulse Resp BP Pulse Ox 100.0 F H 114 H 18 116/71 96 07/06/18 17:30 07/06/18 17:30 07/06/18 17:30 07/06/18 17:30 07/06/18 17:30 Oxygen Flow Rate (L/min) 2 Oxygen Delivery Method Nasal Cannula Weight: 185 lb 13.595 oz Body Mass Index (BMI) 26.6 Intake and Output for Last 24 Hours 07/04/18 07/05/18 07/06/18 23:59 23:59 23:59 Intake Total 1126 / 1126 1356.3 / 1356.3 945.0 / 945.0 Balance 1126 / 1126 1356.3 / 1356.3 945.0 / 945.0 General: Awake, Alert, Oriented x 3, Cooperative, No Acute Distress HEENT: Atraumatic, Normocephalic, PERRL, EOMI, Sclera Non Icteric Oral: Moist Mucosa Neck: Supple, Good ROM, No JVD Lungs: Diminished Left Base Cardiovascular: Regular Rhythm, Normal S1, Normal S2 Abdomen: Bowel Sounds Present, Soft, Non Tender Extremities: No edema 07/06/18 06:05: APTT 67.2 H 07/06/18 06:05: WBC 11.9 H, RBC 2.75 L, Hgb 8.4 L, Hct 26.0 L, MCV 94.5 H, MCH 30.5, MCHC 32.3, RDW 15.3 H, RDW Differential 51.0 H, Plt Count 293, MPV 9.3 Rhythm: Sinus rhythm Medical Necessity - Tobacco Use Smoking Status: Former smoker Assessment/Plan 1. Non-ST segment elevation [place] The etiology for his abnormal cardiac enzymes raise concern of underlying cardiovascular disease with a primary acute coronary syndrome. The patient has been reevaluated for the possibility of an acute PE superimposed upon his chronic PEs. Based upon the radiology report it appears that there is still concern of his chronic PEs but no obvious new acute PE. There is been no obvious etiology for an acute CVA. He does not appear to be in acute renal insufficiency. He does not appear to be septic at this time. From a cardiac standpoint he will be treated medically which will include agents such as aspirin, antiplatelets, nitrates, beta-blockers, etc. as deemed appropriate. He has resumed anticoagulant therapy. He has undergone evaluation with a transthoracic echocardiogram as noted above. His overall LV wall motion and systolic function appear to be preserved at this time. He continues his pulmonary evaluation and care. Radiology did not perform a thoracentesis today because of concerns of diminished quantity of fluid. However he is going to be reassessed tomorrow by pulmonology as to whether or not he should be considered for a Pleurx type catheter. Depending upon the outcome of this consideration will be given as to how to proceed with his cardiovascular evaluation. 2. Hyperlipidemia He can continue evaluation care as deemed appropriate at this time. 3. Hypertension His blood pressure will be followed. He will continue medical adjustment as needed. 4. COPD He does have a history of underlying COPD. He is following with Dr. Sebas perez. 5. 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 He recently underwent thoracentesis. He has a blood-tinged pleural effusion which raises concerns of a malignant pleural effusion. It may be related to his lung carcinoma. However, at the same time he also has a history of prostate carcinoma and thus contribution from this cannot be excluded. Again he is being considered by pulmonology for a possible Pleurx catheter placement. This depends upon the results of his thoracentesis and further recommendations by pulmonology. 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 This may also have an impact on how to proceed with his cardiovascular evaluation. 6. Prostate carcinoma His hematology oncology notes it appears he also has a history of prostate carcinoma. Thus is unclear whether this may be contributing to his metastatic findings as well. 7. Pulmonary embolism He has had pulmonary embolism on more than one occasion. Based upon his CT scan it appears he has evidence of his previous pulmonary emboli without new acute pulmonary emboli. Pending evaluation tomorrow by palliative/hospice therapy as to whether or not zabrina quintero is a candidate for their assistance. Again this may have an impact on how to proceed with his cardiovascular evaluation. Comment: The above was discussed with the patient, his spouse, and Dr. Mock of pulmonology/critical care medicine. This note was generated with [employer] software. It may contain incorrect words, spelling, and punctuation that were not noted in checking the note before signing.
[2018-07-06] MEDS: Atorvastatin Calcium 40 MG Tablet PO (21:30)
[2018-07-06] MEDS: Metoprolol Tartrate 25 MG Tablet PO (21:30)
[2018-07-07] VITALS (7 sets, daily range): BP systolic 104–115; BP diastolic 62–74; PULSE 83–104; RESP 20; TEMP 36.9–37.3; O2SAT 94–98
[2018-07-07 06:46] LABS: Absolute Lymphocyte Count 1.03 X10^3/ul (0.83-4.51); Absolute Neutrophil Count 7.9 X10^3/uL (2.0-7.7); Basophil# 0.02 X10^3/uL; Basophil% 0.2 % (0-1); Eosinophil# 0.21 X10^3/uL; Hematocrit 25.9 % (40-54); Hemoglobin 8.2 g/dl (13.0-16.5); Lymphocyte # 1.03 X10^3/ul (4.0); Lymphocyte % 9.7 % (19-41); Mean Corp Hgb Conc 31.7 g/gl (32-36); Mean Corpuscular Hgb 29.8 pg (27.0-32.0); Mean Corpuscular Volume 94.2 fL (80-94); Mean Platelet Vol. 9.4 fl (6.2-12.0); Monocyte# 1.39 X10^3/uL; Monocyte% 13.1 % (0-10); Neutrophil # 7.86 X10^3/uL (2.7-7.7); Neutrophil % 74.2 % (47-70); Platelet Count 337 K/mm3 (150-450); RBC Distribution Width CV 15.4 % (11.6-14.6); RBC Distribution Width SD 50.5 fl (35.1-43.9); Red Blood Count 2.75 M/mm3 (4.6-6.2); White Blood Count 10.6 K/mm3 (4.4-11.0)
[2018-07-07 06:53] LABS: Anion Gap 7 (5-15); BUN 16 mg/dL (7-18); BUN/Creat Ratio 17.6 RATIO (10-20); Calcium,Total 8.1 mg/dL (8.5-10.1); Chloride 100 mmol/L (98-107); Creatinine, Serum 0.91 mg/dL (0.70-1.30); EST Glomerular Filtration Rate 89 mL/min (>60); Est Glom Filt Rate - Afr Amer 107 mL/min (>60); Estimated Creatinine Clearance 83.56 ml/min; Glucose 92 mg/dL (74-106); POSITIVE COUNT NO; POSITIVE DIFFERENTIAL NO; POSITIVE MORPHOLOGY NO; Potassium 4.3 mmol/L (3.5-5.1); Sodium Level 134 mmol/L (136-145)
[2018-07-07 06:54] LABS: International Normalized Ratio 1.2; Prothrombin Time (Protime)PT. 15.4 SECONDS (11.7-14.9)
--- NOTE | 2018-07-07 08:42 | PCM.PROGNOTE ---
Patient Problems: Active and Suspected Problems (Last Updated 07/03/18 @ 12:52 by Doc Higuera MD) NSTEMI (non-ST elevated myocardial infarction) (Acute) Chest pain (Acute) Subjective: The patient was seen and examined at the bedside this morning. Events from the last 24 hours have been reviewed. The patient is currently afebrile, hemodynamically stable and maintaining appropriate oxygen saturations on 2 L/min via nasal cannula. Repeat thoracentesis was not completed yesterday as the patient was only noted to have a small left pleural effusion, which was not felt to be amenable to thoracentesis. The patient and his family are currently electing to proceed with comfort care measures and subsequent hospice referral. Objective: The patient's most recent lab work, culture data and imaging studies have all been personally reviewed. Surface echocardiogram revealed normal LV size and function with an ejection fraction of 70%. Right ventricular systolic pressure was unable to be estimated. Pleural fluid cytology was positive for the presence of adenocarcinoma. PDL 1 is currently pending. - Physical Exam General: Alert, Cooperative, No apparent distress, - - Family is present at the bedside. HEENT: Atraumatic, PERRLA, Normocephalic Oral: No Gingival or Mucosal Lesions/ Ulcerations Neck: Supple, No Nodes, Trachea Midline Lungs: No rhonchi, No wheeze, No rales, Diminished Cardiovascular: Regular rate, Regular Rhythm, Normal S1, Normal S2, No murmurs Abdomen: Bowel Sounds Present, Soft, Non Tender, Non-Distended Extremities: No clubbing, No cyanosis, No edema Skin: No breakdown Musculoskeletal: No Tenderness to Palpation of Joints or Extremities, No Muscle Wasting Lymphatic: No Cervical, Supraclavicular, or Inguinal Adenopathy Neurological: Cranial nerves II-XII grossly intact, Neuro grossly intact Psych/Mental Status: Alert and oriented to time, place, person, mood and affect Vital Signs Temp Pulse Resp BP Pulse Ox 37.3 C 91 20 H 104/64 96 07/07/18 03:20 07/07/18 06:55 07/07/18 03:20 07/07/18 03:20 07/07/18 03:20 Oxygen Flow Rate (L/min) 2 Oxygen Delivery Method Nasal Cannula Weight: 185 lb 13.595 oz Body Mass Index (BMI) 26.6 Intake and Output for Last 24 Hours 07/05/18 07/06/18 07/07/18 23:59 23:59 23:59 Intake Total 1356.3 / 1356.3 1098.0 / 1098.0 100 / 100 Balance 1356.3 / 1356.3 1098.0 / 1098.0 100 / 100 Laboratory Tests Past 24 Hrs 07/07/18 07/07/18 07/07/18 06:05 06:05 06:05 WBC 10.6 RBC 2.75 L Hgb 8.2 L Hct 25.9 L MCV 94.2 H MCH 29.8 MCHC 31.7 L RDW 15.4 H RDW Differential 50.5 H Plt Count 337 MPV 9.4 Immature Gran % (Auto) 0.800 Neut % (Auto) 74.2 H Lymph % (Auto) 9.7 L [place] % (Auto) 13.1 H Eos % (Auto) 2.0 Baso % (Auto) 0.2 Absolute Neuts (auto) 7.9 H Absolute Lymphs (auto) 1.03 Total Counted Not Reportable PT 15.4 H INR 1.2 APTT 60.0 H Sodium 134 L Potassium 4.3 Chloride 100 Carbon Dioxide 27.0 Anion Gap 7 BUN 16 Creatinine 0.91 Estim Creat Clear Calc 83.56 Est GFR (MDRD) Af Amer 107 Est GFR (MDRD) Non-Af 89 BUN/Creatinine Ratio 17.6 Glucose 92 Calcium 8.1 L Clinical Impression(s) from Imaging Studies Abdomen/Pelvis CT 07/03/18 09:21 IMPRESSION: Worsening consolidations and effusions at the left lung base and nodular changes at the right lung base. Partially visualized right hilar and subcarinal lymphadenopathy. Bilateral renal cysts. Electronically Signed: Fritz Lee, at 10:19 EST Tel , Service support , Chest X-Ray 07/03/18 09:21 IMPRESSION: Stable-appearing consolidation and effusion at the left lung base. Electronically Signed: Fritz Lee, at 10:34 EST Tel , Service support , Chest CTA 07/03/18 14:04 IMPRESSION: 1. Stable multiple moderate size left pleural effusion. A few gas bubbles now present in the fluid along the posterolateral left mid chest, raising concern of evolving empyema. There is stable partial collapse of the left lower lobe. 2. Worsened infrahilar right base peribronchial thickening and ill-defined stranding of inflammatory change or volume loss/crowding. Stable 7 mm nodule in the posterior peripheral right lower lobe. Occasional calcified granulomata also noted. 3. Grossly stable mediastinal, subcarinal, and right hilar lymphadenopathy, with confluent soft tissue density encasing the central right bronchovascular structures. 4. Incompletely occlusive thrombus in the right lower lobe pulmonary artery has progressed into the segmental right lower lobe branches. This likely reflects local disease secondary to stasis of flow rather than acute pulmonary embolus. Electronically Signed: Collin Michael MD at 17:19 EST , Service support , ADDENDUM: 07/03/18 1729 Chest X-Ray 07/06/18 05:55 IMPRESSION: Stable elevation of the left hemidiaphragm, left pleural effusion and atelectasis and interstitial lung disease involving the right hilar and basilar parenchyma. Minimal improved aeration in the left perihilar parenchyma. Electronically Signed: Kaylene Molina MD at 5:31 EST , Service support , Chest Ultrasound 07/06/18 13:47 IMPRESSION: Small left pleural effusion. This is too small for a left thoracentesis. Electronically Signed: Chacho Babcock MD at 14:51 EST Tel [phone], Service support , Medical Necessity - Tobacco Use Smoking Status: Former smoker Assessment/Plan All Active Problems (Last Updated 07/03/18 @ 12:52 by Doc Higuera MD) NSTEMI (non-ST elevated myocardial infarction) (Acute) Chest pain (Acute) Bone metastases (Acute) Pleural effusion, malignant (Acute) RECOMMENDATIONS: 1. Continue bronchodilators. 2. Resume treatment strength Lovenox and transition from heparin drip. 3. Medical management of NSTEMI per cardiology recommendations. 4. Plan at this time to include initiation of comfort care measures and referral to hospice. IMPRESSIONS: 1. History of non-small cell lung cancer with concern for recurrence/concern for malignant pleural effusion The patient is currently active with oncology and recently underwent a thoracentesis on 07/02. Per my discussion with pathology, the patient's pleural fluid is also positive for the presence of non-small cell carcinoma. Therefore, the patient appears to have stage IV recurrent non-small cell carcinoma. PDL 1 is pending. At this time, the patient seems to be more focused on his comfort then in pursuing aggressive treatment. He and his family are electing to pursue comfort care measures and referral to hospice. Dr. Haro is aware and facilitating this request. 2. Venous thromboembolic disease The patient is currently on a heparin drip, but can now be transitioned back to his home Lovenox regimen, as no additional procedures are planned. 3. History of COPD The patient currently follows with Dr. Mullen on an outpatient basis. Continue scheduled bronchodilators. 4. Non-ST segment elevation [place] The patient is currently being followed by cardiology. Recommend continued medical management per their recommendations. 5. Hypertension/hyperlipidemia/personal history of prostate CA Complicates care, management, recovery and prognosis. Likely okay to continue home medications as indicated. This note was generated with [employer] software. It may contain incorrect words, spelling, and punctuation that were not noted in checking the note before signing. Code Visit Inpatient E&M: 51128 Subs Hosp L2
[2018-07-07] MEDS: Aspirin 81 MG TAB.CHEW PO (08:44)
--- NOTE | 2018-07-07 08:54 | PN_ITS ---
Patient Problems: Active and Suspected Problems (Last Updated 07/03/18 @ 12:52 by Doc Higuera MD) NSTEMI (non-ST elevated myocardial infarction) (Acute) Chest pain (Acute) Subjective: The patient was seen and examined at the bedside this morning. Events from the last 24 hours have been reviewed. The patient is currently afebrile, hemodynamically stable and maintaining appropriate oxygen saturations on 2 L/min via nasal cannula. Repeat thoracentesis was not completed yesterday as the patient was only noted to have a small left pleural effusion, which was not felt to be amenable to thoracentesis. The patient and his family are currently electing to proceed with comfort care measures and subsequent hospice referral. Objective: The patient's most recent lab work, culture data and imaging studies have all been personally reviewed. Surface echocardiogram revealed normal LV size and function with an ejection fraction of 70%. Right ventricular systolic pressure was unable to be estimated. Pleural fluid cytology was positive for the presence of adenocarcinoma. PDL 1 is currently pending. - Physical Exam General: Alert, Cooperative, No apparent distress, - - Family is present at the bedside. HEENT: Atraumatic, PERRLA, Normocephalic Oral: No Gingival or Mucosal Lesions/ Ulcerations Neck: Supple, No Nodes, Trachea Midline Lungs: No rhonchi, No wheeze, No rales, Diminished Cardiovascular: Regular rate, Regular Rhythm, Normal S1, Normal S2, No murmurs Abdomen: Bowel Sounds Present, Soft, Non Tender, Non-Distended Extremities: No clubbing, No cyanosis, No edema Skin: No breakdown Musculoskeletal: No Tenderness to Palpation of Joints or Extremities, No Muscle Wasting Lymphatic: No Cervical, Supraclavicular, or Inguinal Adenopathy Neurological: Cranial nerves II-XII grossly intact, Neuro grossly intact Psych/Mental Status: Alert and oriented to time, place, person, mood and affect Vital Signs Temp Pulse Resp BP Pulse Ox 37.3 C 91 20 H 104/64 96 07/07/18 03:20 07/07/18 06:55 07/07/18 03:20 07/07/18 03:20 07/07/18 03:20 Oxygen Flow Rate (L/min) 2 Oxygen Delivery Method Nasal Cannula Weight: 185 lb 13.595 oz Body Mass Index (BMI) 26.6 Intake and Output for Last 24 Hours 07/05/18 07/06/18 07/07/18 23:59 23:59 23:59 Intake Total 1356.3 / 1356.3 1098.0 / 1098.0 100 / 100 Balance 1356.3 / 1356.3 1098.0 / 1098.0 100 / 100 Laboratory Tests Past 24 Hrs 07/07/18 07/07/18 07/07/18 06:05 06:05 06:05 WBC 10.6 RBC 2.75 L Hgb 8.2 L Hct 25.9 L MCV 94.2 H MCH 29.8 MCHC 31.7 L RDW 15.4 H RDW Differential 50.5 H Plt Count 337 MPV 9.4 Immature Gran % (Auto) 0.800 Neut % (Auto) 74.2 H Lymph % (Auto) 9.7 L [place] % (Auto) 13.1 H Eos % (Auto) 2.0 Baso % (Auto) 0.2 Absolute Neuts (auto) 7.9 H Absolute Lymphs (auto) 1.03 Total Counted Not Reportable PT 15.4 H INR 1.2 APTT 60.0 H Sodium 134 L Potassium 4.3 Chloride 100 Carbon Dioxide 27.0 Anion Gap 7 BUN 16 Creatinine 0.91 Estim Creat Clear Calc 83.56 Est GFR (MDRD) Af Amer 107 Est GFR (MDRD) Non-Af 89 BUN/Creatinine Ratio 17.6 Glucose 92 Calcium 8.1 L Clinical Impression(s) from Imaging Studies Abdomen/Pelvis CT 07/03/18 09:21 IMPRESSION: Worsening consolidations and effusions at the left lung base and nodular changes at the right lung base. Partially visualized right hilar and subcarinal lymphadenopathy. Bilateral renal cysts. Electronically Signed: Fritz Lee, at 10:19 EST Tel , Service support , Chest X-Ray 07/03/18 09:21 IMPRESSION: Stable-appearing consolidation and effusion at the left lung base. Electronically Signed: Fritz Lee, at 10:34 EST Tel , Service support , Chest CTA 07/03/18 14:04 IMPRESSION: 1. Stable multiple moderate size left pleural effusion. A few gas bubbles now present in the fluid along the posterolateral left mid chest, raising concern of evolving empyema. There is stable partial collapse of the left lower lobe. 2. Worsened infrahilar right base peribronchial thickening and ill-defined stranding of inflammatory change or volume loss/crowding. Stable 7 mm nodule in the posterior peripheral right lower lobe. Occasional calcified granulomata also noted. 3. Grossly stable mediastinal, subcarinal, and right hilar lymphadenopathy, with confluent soft tissue density encasing the central right bronchovascular structures. 4. Incompletely occlusive thrombus in the right lower lobe pulmonary artery has progressed into the segmental right lower lobe branches. This likely reflects local disease secondary to stasis of flow rather than acute pulmonary embolus. Electronically Signed: Collin Michael MD at 17:19 EST , Service support , ADDENDUM: 07/03/18 1729 Chest X-Ray 07/06/18 05:55 IMPRESSION: Stable elevation of the left hemidiaphragm, left pleural effusion and atelectasis and interstitial lung disease involving the right hilar and basilar parenchyma. Minimal improved aeration in the left perihilar parenchyma. Electronically Signed: Kaylene Molina MD at 5:31 EST , Service support , Chest Ultrasound 07/06/18 13:47 IMPRESSION: Small left pleural effusion. This is too small for a left thoracentesis. Electronically Signed: Chacho Babcock MD at 14:51 EST Tel [phone], Service support , Medical Necessity - Tobacco Use Smoking Status: Former smoker Assessment/Plan All Active Problems (Last Updated 07/03/18 @ 12:52 by Doc Higuera MD) NSTEMI (non-ST elevated myocardial infarction) (Acute) Chest pain (Acute) Bone metastases (Acute) Pleural effusion, malignant (Acute) RECOMMENDATIONS: 1. Continue bronchodilators. 2. Resume treatment strength Lovenox and transition from heparin drip. 3. Medical management of NSTEMI per cardiology recommendations. 4. Plan at this time to include initiation of comfort care measures and referral to hospice. IMPRESSIONS: 1. History of non-small cell lung cancer with concern for recurrence/concern for malignant pleural effusion The patient is currently active with oncology and recently underwent a thoracentesis on 07/02. Per my discussion with pathology, the patient's pleural fluid is also positive for the presence of non-small cell carcinoma. Therefore, the patient appears to have stage IV recurrent non-small cell carcinoma. PDL 1 is pending. At this time, the patient seems to be more focused on his comfort then in pursuing aggressive treatment. He and his family are electing to pursue comfort care measures and referral to hospice. Dr. Haro is aware and facilitating this request. 2. Venous thromboembolic disease The patient is currently on a heparin drip, but can now be transitioned back to his home Lovenox regimen, as no additional procedures are planned. 3. History of COPD The patient currently follows with Dr. Mullen on an outpatient basis. Continue scheduled bronchodilators. 4. Non-ST segment elevation [place] The patient is currently being followed by cardiology. Recommend continued medical management per their recommendations. 5. Hypertension/hyperlipidemia/personal history of prostate CA Complicates care, management, recovery and prognosis. Likely okay to continue home medications as indicated. This note was generated with [employer] software. It may contain incorrect words, spelling, and punctuation that were not noted in checking the note before signing. Code Visit Inpatient E&M: 90213 Subs Hosp L2
--- NOTE | 2018-07-07 10:29 | PCM.DC.SUM ---
Discharge Date and Diagnosis - Problem List Patient Problems: Active and Suspected Problems (Last Updated 07/03/18 @ 12:52 by Doc Higuera MD) NSTEMI (non-ST elevated myocardial infarction) (Acute) Chest pain (Acute) Date of Admission: 07/03/18 Date of Discharge: 07/07/18 - Primary Discharge Diagnosis Active and Suspected Problems (Last Updated 07/03/18 @ 12:52 by Doc Higuera MD) (1) Acute NSTEMI (2) History of non-small cell lung cancer with recurrent L pleural effusion w/ Ongoing Dyspnea w/ Pathology w/ Cytology + Non-small Cell Lung CA, Recurrent now Stage IV Lung CA (3) History of DVT, PE (4) History of Prostate CA (5) Chronic COPD (6) AOCD (7) CODE status: DNR-CC with transition to Hospice Program - Secondary Discharge Diagnosis Chronic Problems (Last Updated 07/03/18 @ 12:52 by Doc Higuera MD) COPD (chronic obstructive pulmonary disease) (Chronic) Prostate cancer (Chronic) surgery , R.T. 2014 PSA relapse 2016 ADT Multiple sclerosis (Chronic) left leg weakness Cancer of lower lobe of left lung (Chronic) Regional lymph node metastasis present (Chronic) Anemia (Chronic) Adenocarcinoma of lung (Chronic) Hyperlipidemia (Chronic) Hypertension (Chronic) History of prostatectomy (Chronic) 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) [facility] 07/03/17 [address] Course [address] Treatment Dr. Rollins Cardiology Dr. Leger Oncology Dr. Mock Pulmonary Dr. Raza Hem/Onc Operations: None Procedures: EKG, Thoracentesis Summary of Care Provided: The patient is a 67 y/o M w/ PMHx: Chronic COPD, History of Non small cell Lung CA, HTN, HLD, History of Prostate CA who presented to the [facility] ED on 07/03/18 secondary to ongoing fatigue, weakness, dyspnea worse with any exertion s/p recent outpatient L sided thoracentesis. EKG in ED w/ no acute evidence of ischemia, notable pulmonary process bilateral effusions now status post thoracenteses in addition to recent CTPA with progressing pulmonary emboli stasis flow. Trop elevated, 1.810-->1.920-->1.770. Patient maintained on a monitored bed, serial cardiac enzymes as noted and repeat EKGs. Magnesium requested. Maintained on heparin drip given oral anticoagulant held w/ recent thoracenteses with transition back to lovenox therapeutic regimen given no marked fluid noted on repeat US for consideration repeat thoracentesis. Continued medical management w/ asa, BB, statin w/ AM FLP obtained with noted triglycerides 108, cholesterol 165, LDL 108, VLDL 22, HDL 35. Cardiology consulted, discussed possibility for cardiac catheterization; however, currently pulmonary presentation complicates presentation and pulmonary medicine advising against catheterization at this time to which cardiology is amenable. ECHO w/ normal LV systolic function, EF 70%, mildly enlarged LA, trivial MDI, trivial TBI, mild focal AV thickening, trivial PVI, no evidence diastolic dysfunction. Upon admission, CT abdomen and pelvis upon presentation with noted worsening consolidations and effusions at the left lung base and nodular changes at the right lung base with partially visualized right hilar and subcarinal lymphadenopathy. CTPA with stable multiple moderate sized left pleural effusion, few gas bubbles present in the fluid along the posterior lateral left mid chest raising some concern about possibility of evolving empyema with stable partial collapse of left lower lobe, worsened infrahilar right base peribronchial thickening and ill-defined stranding and inflammatory change or volume loss, stable nodule in the posterior tory-referral right lower lobe, occasional calcified granulomata, grossly stable mediastinal, subcarinal and right hilar lymphadenopathy with confluent soft tissue density encasing the central right bronchovascular structures, incompletely occlusive thrombus in the right lower lobe pulmonary artery which is progressed into the segmental right lower lobe branches reflecting local disease secondary to stasis flow rather than any acute pulmonary emboli. Oncology consulted following, per history noted to have been diagnosed with adenocarcinoma left lower lobe in May 2017 status post left lower lobe sleeve lobectomy at [facility] status post adjuvant systemic chemotherapy with carboplatin and Alimta is 4 cycles completed in December 2017 with follow-up PET and CT scans in June consistent with recurrent disease in the mediastinal lymph nodes and likely malignant pleural effusion with also evidence for bony metastatic disease in the pelvis. 07/02/18 L thoracentesis performed, cytology consistent with recurrent non-small cell lung cancer and repeat CXR AM with moderate sized pleural effusion despite recent thoracentesis. Initially, was going to attempt repeat thoracentesis L side; however, repeat US imaging per Radiology and review per Pulmonary with no marked fluid to remove. Given patient severe symptomatic dyspnea even at rest but severe with exertion, discussed CODE status at length and current poor prognosis, patient interested in comfort measures. Hospice team consulted and made aware of patient status and that he would benefit from inpatient hospice facility stablization prior to transition to home with hospice. DAY OF DISCHARGE PROGRESS NOTE: Subjective: Patient without acute event overnight per self and nursing report. Patient remains dyspneic at rest although does appear comfortable but notes more severe with any movement attempts. Discussed plan of care at length again with family preference to continue with hospice and also noted no need to further discuss treatment plans or options with oncology or cardiology. Again, reviewed concept of palliative radiation for the adenopathy and noted review and discussions w/ Pulmonary felt this would likely not yield any increase in comfort at this time. Patient denies fever, chills, nausea, emesis, abdominal pain, chest pain. Patient agreeable to discharge to hospice facility. Objective: T 98.2, heart rate 63, BP 146/85, respiratory rate 16, 96% room air. Physical Examination: General: awake, alert, oriented x 3 and cooperative, seated upright in bed in no apparent distress, fatigued appearance. Skin: normal color, turgor, no icterus, cyanosis. HEENT: AT/NC, EOMI, PERRLA, MMM. Lungs: Diminished breath sounds bilaterally, greater bases, effort increased with conversational attempts, no wheezing, crackles or rhonchi noted. Heart: Regular rate and rhythm; no gallop, rub audible. Abdomen: soft, NTTP, ND, normal BS. Extremities: no cyanosis, clubbing, trace BL ankle edema. Neurological: patient awake, alert, oriented x 3; cognitive function intact; pupils equally reactive to light and accomodation; cranial nerves II-XII grossly normal, moving all 4 extremities, no focal deficits, strength severely globally decreased. Psychiatric: affect appears fatigued, no acute evidence of depressive or anxiety feelings. Assessment and Plan: Please see hospital summary above. Patient Problems: Active and Suspected Problems (Last Updated 07/03/18 @ 12:52 by Doc Higuera MD) NSTEMI (non-ST elevated myocardial infarction) (Acute) Chest pain (Acute) - Physical Exam Vital Signs Temp Pulse Resp BP Pulse Ox 99.1 F 91 20 H 104/64 94 07/07/18 03:20 07/07/18 06:55 07/07/18 03:20 07/07/18 03:20 07/07/18 07:34 Oxygen Flow Rate (L/min) 2 Oxygen Delivery Method Nasal Cannula Weight: 185 lb 13.595 oz Body Mass Index (BMI) 26.6 Intake and Output for Last 24 Hours 07/05/18 07/06/18 07/07/18 23:59 23:59 23:59 Intake Total 1356.3 / 1356.3 1098.0 / 1098.0 100 / 100 Balance 1356.3 / 1356.3 1098.0 / 1098.0 100 / 100 Laboratory Tests Past 24 Hrs 07/07/18 07/07/18 07/07/18 06:05 06:05 06:05 WBC 10.6 RBC 2.75 L Hgb 8.2 L Hct 25.9 L MCV 94.2 H MCH 29.8 MCHC 31.7 L RDW 15.4 H RDW Differential 50.5 H Plt Count 337 MPV 9.4 Immature Gran % (Auto) 0.800 Neut % (Auto) 74.2 H Lymph % (Auto) 9.7 L Boundary % (Auto) 13.1 H Eos % (Auto) 2.0 Baso % (Auto) 0.2 Absolute Neuts (auto) 7.9 H Absolute Lymphs (auto) 1.03 Total Counted Not Reportable PT 15.4 H INR 1.2 APTT 60.0 H Sodium 134 L Potassium 4.3 Chloride 100 Carbon Dioxide 27.0 Anion Gap 7 BUN 16 Creatinine 0.91 Estim Creat Clear Calc 83.56 Est GFR (MDRD) Af Amer 107 Est GFR (MDRD) Non-Af 89 BUN/Creatinine Ratio 17.6 Glucose 92 Calcium 8.1 L Home Medications: Medications to take at Discharge Leuprolide Acetate [Lupron Depot (Lupaneta)] 3.75 mg IM Q90D #0 10/02/17 Bisoprolol Fumarate [Zebeta] 10 mg PO DAILY #0 11/03/17 Handicap Placard #1 ea 02/18/18 Aspirin [Aspirin, Baby] 81 mg PO DAILY@0800 #30 tab.chew 04/01/18 enoxaparin 150 mg/mL subcutaneous syringe 150 mg SC DAILY #30 ml 04/28/18 albuterol sulfate concentrate 2.5 mg/0.5 mL solution for nebulization 2.5 mg INHALATION Q4H PRN #180 ea 07/02/18 Primary Care Physician: Doron Vernon DO [Primary Care Provider] - Medical Necessity - Tobacco Use Smoking Status: Former smoker Meaningful Use Info Meaningful Use Diagnoses (Choose all that apply): AMI - AMI Aspirin given w/in 24hrs of arrival?: Yes ASA at discharge?: Yes Statins at discharge?: Yes Yusuf/ARB at discharge?: No Reason Yusuf/ARB not ordered:: Hypotension Beta Lindsay at discharge?: Yes Done w/ Acute MS measure.: Yes Code Visit Inpatient E&M: [id number] Disch Hosp
[2018-07-07] MEDS: Enoxaparin 80 MG/0.8 ML Syringe SC (12:24)
--- NOTE | 2018-07-07 13:40 | NURSING ---
Addendum entered by Carole Grace 07/07/18 13:59: maribell stated to leave IV in place at this time Original Note: called report to Hospice, report given to maribell
--- OUTSIDE RECORDS SUMMARY | 2018-08-27 19:19 | XMS RPT_ITS ---
:1950 Author Organization OHIP Support Name Relationship Address Phone R Unavailable Unavailable Unavailable STOLL, SANDI Unavailable [address] + [place] [address] R Unavailable Unavailable Unavailable STOLL, SANDI Unavailable [address] + [place] [address] R Unavailable Unavailable Unavailable STOLL, SANDI Unavailable [address] + [place] [address] R Unavailable Unavailable Unavailable STOLL, SANDI Unavailable [address] + [place] [address] R Unavailable Unavailable Unavailable STOLL, SANDI Unavailable [address] + [place] [address] R Unavailable Unavailable Unavailable STOLL, SANDI Unavailable [address] + [place] [address] R Unavailable Unavailable Unavailable STOLL, SANDI Unavailable [address] + [place] [address] R Unavailable Unavailable Unavailable STOLL, SANDI Unavailable [address] + [place] [address] R Unavailable Unavailable Unavailable STOLL, SANDI Unavailable [address] + [place] [address] R Unavailable Unavailable Unavailable STOLL, SANDI Unavailable [address] + [place] [address] R Unavailable Unavailable Unavailable STOLL, SANDI Unavailable [address] + [place] [address] R Unavailable Unavailable Unavailable STOLL, SANDI Unavailable [address] + [place] [address] R Unavailable Unavailable Unavailable STOLL, SANDI Unavailable [address] + [place] [address] R Unavailable Unavailable Unavailable STOLL, SANDI Unavailable [address] + [place] [address] R Unavailable Unavailable Unavailable STOLL, SANDI Unavailable [address] + [place] [address] R Unavailable Unavailable Unavailable STOLL, SANDI Unavailable [address] + [place] [address] R Unavailable Unavailable Unavailable STOLL, SANDI Unavailable [address] + [place] [address] R Unavailable Unavailable Unavailable STOLL, SANDI Unavailable [address] + [place] [address] R Unavailable Unavailable Unavailable STOLL, SANDI Unavailable [address] + [place] [address] R Unavailable Unavailable Unavailable STOLL, SANDI Unavailable [address] + [place] [address] R Unavailable Unavailable Unavailable STOLL, SANDI Unavailable [address] + [place] [address] R Unavailable Unavailable Unavailable STOLL, SANDI Unavailable [address] + [place] [address] R Unavailable Unavailable Unavailable STOLL, SANDI Unavailable [address] + [place] [address] R Unavailable Unavailable Unavailable STOLL, SANDI Unavailable [address] + [place] [address] R Unavailable Unavailable Unavailable STOLL, SANDI Unavailable [address] + [place] [address] R Unavailable Unavailable Unavailable STOLL, SANDI Unavailable [address] + [place] [address] R Unavailable Unavailable Unavailable STOLL, SANDI Unavailable [address] + [place] [address] R Unavailable Unavailable Unavailable STOLL, SANDI Unavailable [address] + [place] [address] R Unavailable Unavailable Unavailable STOLL, SANDI Unavailable [address] + [place] [address] R Unavailable Unavailable Unavailable STOLL, SANDI Unavailable [address] + [place] [address] R Unavailable Unavailable Unavailable STOLL, SANDI Unavailable [address] + [place] [address] R Unavailable Unavailable Unavailable STOLL, SANDI Unavailable [address] + [place] [address] R Unavailable Unavailable Unavailable STOLL, SANDI Unavailable [address] + [place] [address] R Unavailable Unavailable Unavailable STOLL, SANDI Unavailable [address] + [place] [address] R Unavailable Unavailable Unavailable STOLL, SANDI Unavailable [address] + [place] [address] R Unavailable Unavailable Unavailable STOLL, SANDI Unavailable [address] + [place] [address] R Unavailable Unavailable Unavailable STOLL, SANDI Unavailable [address] + [place] [address] R Unavailable Unavailable Unavailable STOLL, SANDI Unavailable [address] + [place] [address] R Unavailable Unavailable Unavailable STOLL, SANDI Unavailable [address] + [place] [address] R Unavailable Unavailable Unavailable STOLL, SANDI Unavailable [address] + [place] [address] R Unavailable Unavailable Unavailable STOLL, SANDI Unavailable [address] + [place] [address] R Unavailable Unavailable Unavailable STOLL, SANDI Unavailable [address] + [place] [address] R Unavailable Unavailable Unavailable STOLL, SANDI Unavailable [address] + [place] [address] R Unavailable Unavailable Unavailable STOLL, SANDI Unavailable [address] + [place] [address] R Unavailable Unavailable Unavailable STOLL, SANDI Unavailable [address] + [place] [address] R Unavailable Unavailable Unavailable STOLL, SANDI Unavailable [address] + [place] [address] R Unavailable Unavailable Unavailable STOLL, SANDI Unavailable [address] + [place] [address] R Unavailable Unavailable Unavailable STOLL, SANDI Unavailable [address] + [place] [address] R Unavailable Unavailable Unavailable STOLL, SANDI Unavailable [address] + [place] [address] R Unavailable Unavailable Unavailable STOLL, SANDI Unavailable [address] + [place] [address] R Unavailable Unavailable Unavailable STOLL, SANDI Unavailable [address] + [place] [address] R Unavailable Unavailable Unavailable STOLL, SANDI Unavailable [address] + [place] [address] R Unavailable Unavailable Unavailable STOLL, SANDI Unavailable [address] + [place] [address] R Unavailable Unavailable Unavailable STOLL, SANDI Unavailable [address] + [place] [address] R Unavailable Unavailable Unavailable STOLL, SANDI Unavailable [address] + [place] [address] R Unavailable Unavailable Unavailable STOLL, SANDI Unavailable [address] + [place] [address] R Unavailable Unavailable Unavailable STOLL, SANDI Unavailable [address] + [place] [address] R Unavailable Unavailable Unavailable STOLL, SANDI Unavailable [address] + [place] [address] R Unavailable Unavailable Unavailable STOLL, SANDI Unavailable [address] + [place] [address] R Unavailable Unavailable Unavailable STOLL, SANDI Unavailable [address] + [place] [address] R Unavailable Unavailable Unavailable STOLL, SANDI Unavailable [address] + [place] [address] R Unavailable Unavailable Unavailable STOLL, SANDI Unavailable [address] + [place] [address] R Unavailable Unavailable Unavailable STOLL, SANDI Unavailable [address] + [place] [address] R Unavailable Unavailable Unavailable STOLL, SANDI Unavailable [address] [phone] [place] [address] R Unavailable Unavailable Unavailable STOLL, SANDI Unavailable [address] [phone] [place] [address] R Unavailable Unavailable Unavailable STOLL, SANDI Unavailable [address] [phone] [place] [address] R Unavailable Unavailable Unavailable STOLL, SANDI Unavailable [address] [phone] [place] [address] R Unavailable Unavailable Unavailable STOLL, SANDI Unavailable [address] [phone] [place] [address] R Unavailable Unavailable Unavailable STOLL, SANDI Unavailable [address] [phone] [place] [address] Care Team Providers Name Role Phone Oracio Legerour Attending Unavailable Brown, Fernando Primary Care Unavailable Tavon Mullen Referring Unavailable Isckarus, Mansour Attending Unavailable Isckarus, Mansour Referring Unavailable Brown, Feranndo Primary Care Unavailable Isckarus, Mansour Consulting Unavailable [...] Care Unavailable Sebas, Tavon Attending Unavailable Susanna, Ktalyn Referring Unavailable Sebas, Tavon Attending Unavailable Sebas, [...] Sebas, Tavon Referring Unavailable Brown, Fernando [facility] Unavailable Dago Leger Consulting Unavailable Miguelina Saenz Attending Unavailable Miguelina Saenz Referring Unavailable Brown, [facility] Unavailable [facility] Unavailable Ashelfah, Ghasem Admitting Unavailable Moodispaw, Kash Consulting Unavailable Skye Haro Attending Unavailable Sebas, Tavon Consulting Unavailable Yusef, Corina Consulting Unavailable Tisha Raza Consulting Unavailable Ashelfah, Ghasem Admitting Unavailable Ashelfah, Ghasem Attending Unavailable [facility] Unavailable Moodispaw, Kash Consulting Unavailable Ashelfah, Ghasem Consulting Unavailable Ashelfah, Ghasem Admitting Unavailable Moodispamisha, Kash Attending Unavailable [facility] Unavailable Moodispaw, Kash Consulting Unavailable Ashelfah, Ghasem Consulting Unavailable Ashelfah, Ghasem Admitting Unavailable Ashelfah, Ghasem Attending Unavailable [facility] Unavailable Moodispaw, Kash Consulting Unavailable Sebas, Tavon Consulting Unavailable Ashelfah, Ghasem Consulting Unavailable Ashelfah, Ghasem Admitting Unavailable Moodiswilly, Kash Attending Unavailable [facility] Unavailable Moodispaw, Kash Consulting Unavailable Sebas, Tavon Consulting Unavailable Ashelfah, Ghasem Consulting Unavailable Ashelfah, Ghasem Admitting Unavailable David Mock D.O. Attending Unavailable [facility] Unavailable Moodispamisha, Kash Consulting Unavailable Sebas, Tavon Consulting Unavailable Uysef, Corina Consulting Unavailable White, Skye Consulting Unavailable Alistair Beard Attending Unavailable Ashelfah, Ghasem Admitting Unavailable David Mock D.O. Attending Unavailable [facility] Unavailable Moodispamisha, Kash Consulting Unavailable Sebas, Tavon Consulting Unavailable Yusef, Corina Consulting Unavailable White, Skye Consulting Unavailable Ashelfah, Ghasem Admitting Unavailable Moodispamisha, Kash Attending Unavailable [facility] Unavailable Moodispaw, Kash Consulting Unavailable Sebas, Tavon Consulting Unavailable Yusef, Corina Consulting Unavailable White, Skye Consulting Unavailable Ashelfah, Ghasem Admitting Unavailable WhiteSkye Attending Unavailable [facility] Unavailable Moodispaw, Kash Consulting Unavailable Sebas, [...] Unknown 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, 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 / Hospital C79.51(ICD-10) Repository 07/12/2018 Unknown J91.0 - Malignant Yusef, Corina Active [place] pleural effusion / Community J91.0(ICD-10) Hospital Repository 07/12/2018 Unknown D63.8 - Anemia in Yusef, Corina Active [place] other chronic Community diseases Hospital classified Repository [...] 06/21/2018 Unknown R06.00 - Dyspnea, Saenz, Active [place] unspecified / Miguelina Community R06.00(ICD-10) Hospital Repository 06/18/2018 Unknown I26.99 - Other Mae, [place] Active [place] pulmonary embolism Community without acute cor Hospital pulmonale / Repository I26.99(ICD-10) 07/05/2018 Unknown Z23 - Encounter Alistair Beard Active [place] for immunization / Community Z23(ICD-10) Hospital Repository 07/12/2018 Unknown C34.90 - Malignant Sebas, Tavon Active [place] neoplasm of Community unspecified part Hospital of unspecified Repository bronchus or lung / C34.90(ICD-10) 06/08/2018 Unknown D64.9 - Anemia, Sebas, Tavon Active [place] unspecified / Community D64.9(ICD-10) Hospital Repository 04/28/2018 Unknown I26.09 - Other Sebas, Tavon Active [place] pulmonary embolism Community with acute cor Hospital pulmonale / Repository I26.09(ICD-10) 04/26/2018 Unknown R07.9 - Chest Zamora, Fritz Active [place] pain, unspecified Community / R07.9(ICD-10) Hospital Repository 02/04/2018 Unknown C34.92 - Malignant Sebas, Tavon Active [place] neoplasm of Community unspecified part Hospital of left bronchus Repository or lung / C34.92(ICD-10) 11/25/2017 Unknown J98.9 - Celeninrobert Katlyn Active [place] Respiratory Community disorder, Hospital unspecified / Repository J98.9(ICD-10) 09/21/2017 Unknown C77.9 - Secondary Yusef, 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, Repository unspecified / C77.9(ICD-10) PROCEDURES PROCEDURES No Procedure Records FoundRESULTS RESULTS LEAD ELECTROCARDIOGRAM Observed: 07/08/2018 Status: F Source: [place] 2:16 PM [facility] REPOSITORY [facility] Cardiovascular Services [address] [place] [address] 12 Lead EKG 07/04/18 0601 MR#: [id number] Acct: [id number] Name: SHAILA STOLL Rep #: [id number] : 1950 67 From: Kash Rollins MD Attending Dr: Skye Haro Status: DIS IN Ordering Dr: Doc Higuera MD Date: 07/04/18 Location: [facility] Sex: M C Admitted: 07/03/18 Test [...] leads) Confirmed by KAREN JOHNSON, KASH ([id number]), publishing editor SUMA VANEGAS ([id number]) on 07/08/2018 2:15:52 PM Referred By: DAMION Confirmed By:KASH ROLLINS MD 07/08/18 1415 Date Kash Rollins MD CC: Skye Haro; Doc Higuera; Katlyn Mullins DO Signed DISCHARGE SUMMARY Observed: 07/07/2018 Status: F Source: [place] 10:42 AM [facility] REPOSITORY [facility] Medical Records Department [address] [place] [address] Discharge Summary 07/07/18 1029 MR#: [id number] Acct: [id number] Name: STOLLSHAILA Rep #: [id number] : 1950 67 From: Skye Haro PCP: Katlyn Mullins DO Status: ADM IN Y Location: [place] [address] Discharge Date and Diagnosis - Problem List [...] left lower lobe lung (Chronic) [facility] 07/03/17 [address] Course [address] Treatment Dr. Rollins Cardiology Dr. Leger Oncology Dr. Mock Pulmonary Dr. Raza Hem/Onc Operations: None Procedures: EKG, Thoracentesis Summary of Care Provided: The patient is a 67 y/o M w/ PMHx: Chronic COPD, History of Non small cell Lung CA, HTN, HLD, History of Prostate CA who presented to the [facility] ED on 07/03/18 secondary to ongoing fatigue, [...] Lindsay at discharge?: Yes Done w/ Acute NC measure.: Yes Code Visit Inpatient E AND M: [id number] Disch Hosp 07/07/18 1042 <Electronically signed by Skye Haro > Date Skye Haro Cosigner Signature (if applicable): Date CC: Skye Haro; Katlyn Mullins DO Signed CBC W/DIFF, AUTOMATED Collected: 07/07/2018 Status: F Source: [place] 6:05 AM [facility] REPOSITORY TYPE CODE TESTS RESULT OUT OF [...] By: #### L100.0100 #### [facility] [address] [place], [place], [id number] BASIC METABOLIC Collected: 07/07/2018 Status: F Source: [place] PROFILE (BMP) 6:05 AM [facility] REPOSITORY TYPE CODE TESTS RESULT OUT OF [...] By: #### L500.2500 #### [facility] [address] [place], [place], [address] PROTHROMBIN TIME W/INR Collected: 07/07/2018 Status: F Source: [place] 6:05 AM [facility] REPOSITORY TYPE CODE TESTS RESULT OUT OF RANGE REFERENCE UNITS LAB L300.4150 11.7-14.9 SECONDS High PROTIME 15.4 LAB L300.4200 Normal INR 1.2 Performed By: #### L300.3900, L300.4310 #### [facility] [address] [facility], [address] PARTIAL THROMBOPLAST Collected: 07/07/2018 Status: F Source: [place] TIME 6:05 AM [facility] REPOSITORY TYPE CODE TESTS RESULT OUT OF REFERENCE UNITS RANGE LAB L300.4310 24.1-36.2 Seconds High PTT 60.0 Performed By: #### L300.3900, L300.4310 #### [facility] [address] [place], [address] 12 LEAD ELECTROCARDIOGRAM Observed: 07/06/2018 Status: F Source: [place] 2:24 PM [facility] REPOSITORY [facility] Cardiovascular Services [address] [place] [address] 12 Lead EKG 07/03/18 0935 MR#: [id number] Acct: [id number] Name: SHAILA STOLL Rep #: [id number] : 1950 67 From: Kash Rollins MD Attending Dr: Skye Haro Status: ADM IN Ordering Dr: Grazyna Hernandez DO Date: 07/03/18 Location: [facility] Sex: M C Admitted: 07/03/18 Test [...] leads) Confirmed by KASH ROLLINS MD ([id number]), publishing editor SUMA VANEGAS ([id number]) on 07/06/2018 2:24:13 PM Referred By: RU Confirmed By:KASH ROLLINS MD 07/06/18 1424 Date Kash Rollins MD CC: Skye Haro; Grazyna Hernandez DO; Katlyn Mullins DO Signed CHEST Observed: 07/06/2018 Status: F Source: [place] 1:50 PM [facility] REPOSITORY [facility] Imaging Services [address] [place] [address] Chest MR#: [id number] Acct: [id number] Name: SHAILA STOLL Rep #: [id number] : 1950 M 67 From: Chacho Babcock MD PCP: Katlyn Mullins DO Status: ADM IN Study: Chest Date of Exam: 07/06/18 Exam# [id number] Ordering Dr: Skye Haro STUDY: ASSESSMENT OF [...] Chacho Babcock MD at 14:51 EST Tel [phone], Service support , CC: Skye Haro; Katlyn Mullins DO Grab Setter: Signed CONSULTATION Observed: 07/06/2018 Status: F Source: [place] 10:09 AM [facility] REPOSITORY [facility] Medical Records Department [address] [place] [address] Consultation 07/05/18 1533 MR#: [id number] Acct: [id number] Name: SHAILA STOLL Rep #: [id number] : 1950 67 From: Corina Holbrook NP-Kriss PCP: Katlyn Mullins DO Status: ADM IN Location: [place] [address] Subjective Date of Service:: 07/05/18 Chief Complaint: H/o adenocarcinoma-lung, pleural effusion History of Present Illness: Mr. Shaila Stoll is a pleasant 67-year-old gentleman wwith smoker who quit over 20 years ago after a 30+ pack year smoking who was diagnosed with adenocarcinoma of the LLL 05/19/17. On July 03, 2017 he underwent left lower lobe sleeve lobectomy at [facility] by Dr. Alfonso. He is s/p adjuvant [...] and extreme fatigue which prompted presentation to [facility] ED. Found to have experienced NSTEMI and [...] 07/03/18 12:57 [place] (Rec: 07/03/18 13:03 [place] [id number]) BMI Required to complete [facility] What is Patient's BMI 26.6 [...] EST , Service support , ADDENDUM: 07/03/18 6100 Assessment and Plan 1. Non-small cell lung cancer, adenocarcinoma histology, left lower lobe. Patient is status post left lower lobectomy and lymph node dissection at [facility] July 03, 2017 with R0 resection. Received [...] results of cytology analysis. Corina Holbrook, MSN, MEDICAL ORDERLY-C, AOCNP Primary Care Provider: Katlyn Mullins Referring Provider: 07/06/18 1005 <Electronically signed by Corina Holbrook AUTOMOTIVE TITLE CLERK-C> Date Corina Holbrook AUTOMOTIVE TITLE CLERK-C Cosigner Signature (if applicable): Date CC: Tavon Mullen MD; Kash Rollins MD; Katlyn Mullins DO; Corina Holbrook NP Signed CBC-COMPLETE BLOOD CNT Collected: 07/06/2018 Status: F Source: [place] NO DIFF 6:05 AM [facility] REPOSITORY Order Comment: Comments: heparin gtt. protocol [...] By: #### L100.0500 #### [facility] [address] [place], [place], [id number] PARTIAL THROMBOPLAST Collected: 07/06/2018 Status: F Source: [place] TIME 6:05 AM [facility] REPOSITORY TYPE CODE TESTS RESULT OUT OF REFERENCE UNITS RANGE LAB L300.4310 24.1-36.2 Seconds High PTT 67.2 Performed By: #### L300.4310 #### [facility] [address] [place], [address] CHEST 1 VIEW Observed: 07/06/2018 Status: F Source: [place] (PORTABLE) 12:00 AM [facility] REPOSITORY [facility] Imaging [place] [address] Chest 1 View (Portable) MR#: [id number] Acct: [id number] Name: SHAILA STOLL Rep #: [id number] : 1950 M 67 From: Kaylene Molina MD PCP: Katlyn Mullins DO Status: ADM IN Study: Chest 1 View (Portable) Date of Exam: 07/06/18 Exam# [id number] Ordering Dr: Skye Haro STUDY: X-RAY CHEST [...] , CC: Skye Haro; Katlyn Mullins DO Grab Setter: Signed ECHOCARDIOGRAM COMPLETE Observed: 07/05/2018 Status: F Source: [place] 12:41 PM [facility] REPOSITORY [facility] Cardiovascular Services [place] [address] Echo Complete 07/05/18 1014 MR#: [id number] Acct: [id number] Name: SHAILA STOLL Rep #: [id number] : 1950 67 From: Kash Rollins MD Attending Dr: Skye Haro Status: ADM IN Ordering Dr: Doc Higuera MD Date: 07/03/18 Location: [facility] Sex: M C Admitted: 07/03/18 Reason For Study: S/P NC Procedure This was a 2D Doppler, Color [...] Dictated: 07/05/18 1014 Date Transcribed: 07/05/18 1240 Grab Setter: Signed CONSULTATION Observed: 07/05/2018 Status: F Source: [place] 7:19 AM [facility] Medical Records Department [address] [place] [address] Consultation 07/04/18 0807 MR#: [id number] Acct: [id number] Name: SHAILA STOLL Rep #: [id number] : 1950 67 From: David Mock DO PCP: Katlyn Mullins DO Status: ADM IN Location: [place] [address] Reason for Consult Date of Consultation: 07/04/18 [...] lobe lobectomy in July 2017 at the [facility]. The patient received adjuvant chemotherapy and had [...] the presence of a non-ST segment elevation NC. Past Medical History Past Medical History (Chronic [...] Continue scheduled bronchodilators. 4. Non-ST segment elevation NC The patient is currently being followed by [...] as indicated. This note was generated with Securusation software. It may contain incorrect words, spelling, and punctuation that were not noted in checking the note before signing. Code Visit Inpatient E AND M: [id number] Init Hosp L3 07/05/18 0719 <Electronically signed by David Mock DO> Date David Mock DO Cosigner Signature (if applicable): Date CC: Tavon Mullen MD; Kash Rollins MD; Katlyn Mullins DO; Corina Holbrook NP Signed CBC W/DIFF, AUTOMATED Collected: 07/05/2018 Status: F Source: [place] 6:10 AM [facility] REPOSITORY TYPE CODE TESTS RESULT OUT OF [...] By: #### L100.0100 #### [facility] [address] [place], [address] BASIC METABOLIC Collected: 07/05/2018 Status: F Source: [place] PROFILE ([facility] 6:10 AM [facility] REPOSITORY TYPE CODE TESTS RESULT OUT OF [...] By: #### L500.2500 #### [facility] [address] [place], [address] PARTIAL THROMBOPLAST Collected: 07/05/2018 Status: F Source: [place] TIME 6:10 AM [facility] REPOSITORY TYPE CODE TESTS RESULT OUT OF REFERENCE UNITS RANGE LAB L300.4310 24.1-36.2 Seconds High PTT 63.0 Performed By: #### L300.4310 #### [facility] [address] [place], [address] MAGNESIUM Collected: 07/05/2018 Status: F Source: [place] 6:10 AM [facility] REPOSITORY TYPE CODE TESTS RESULT OUT OF RANGE REFERENCE UNITS LAB L501.5200 1.6-2.6 mg/dL Normal MG 2.0 Performed By: #### L501.5200 #### [facility] [address] [place], [address] PARTIAL THROMBOPLAST Collected: 07/04/2018 Status: F Source: [place] TIME 8:35 PM [facility] REPOSITORY TYPE CODE TESTS RESULT OUT OF REFERENCE UNITS RANGE LAB L300.4310 24.1-36.2 Seconds High PTT 59.1 Performed By: #### L300.4310 #### [facility] [address] [place], [address] PARTIAL THROMBOPLAST Collected: 07/04/2018 Status: F Source: [place] TIME 2:41 PM [facility] REPOSITORY TYPE CODE TESTS RESULT OUT OF REFERENCE UNITS RANGE LAB L300.4310 24.1-36.2 Seconds High PTT 63.7 Performed By: #### L300.4310 #### [facility] [address] [place], [address] PARTIAL THROMBOPLAST Collected: 07/04/2018 Status: F Source: [place] TIME 8:46 AM [facility] REPOSITORY TYPE CODE TESTS RESULT OUT OF REFERENCE UNITS RANGE LAB L300.4310 24.1-36.2 Seconds High PTT 75.0 Performed By: #### L300.4310 #### [facility] [address] [place], [address] CBC W/DIFF, AUTOMATED Collected: 07/04/2018 Status: F Source: 2:15 AM [facility] REPOSITORY TYPE CODE TESTS RESULT OUT OF [...] By: #### L100.0100 #### [facility] [address] [place], [address] BASIC METABOLIC Collected: 07/04/2018 Status: F Source: [place] PROFILE (BMP) 2:15 AM [facility] REPOSITORY TYPE CODE TESTS RESULT OUT OF [...] L500.2500, L500.3400, L500.4100 #### [facility] [address] [facility] [place], [place], [address] LIVER PROFILE Collected: 07/04/2018 Status: F Source: [place] 2:15 AM [facility] REPOSITORY TYPE CODE TESTS RESULT OUT OF [...] L500.2500, L500.3400, L500.4100 #### [facility] [address] [place], [place], [id number] LIPID PROFILE Collected: 07/04/2018 Status: F Source: [place] 2:15 AM [facility] REPOSITORY TYPE CODE TESTS RESULT OUT OF [...] L500.2500, L500.3400, L500.4100 #### [facility] [address] [place], [address] PARTIAL THROMBOPLAST Collected: 07/04/2018 Status: F Source: [place] TIME 2:15 AM [facility] REPOSITORY TYPE CODE TESTS RESULT OUT OF REFERENCE UNITS RANGE LAB L300.4310 24.1-36.2 Seconds High PTT 84.4 Performed By: #### L300.4310 #### [facility] [address] [place], [address] PROTHROMBIN TIME W/INR Collected: 07/03/2018 Status: F Source: [place] 6:57 PM [facility] REPOSITORY TYPE CODE TESTS RESULT OUT OF RANGE REFERENCE UNITS LAB L300.4150 11.7-14.9 SECONDS High PROTIME 16.3 LAB L300.4200 Normal INR 1.3 Performed By: #### L300.3900, L300.4310 #### [facility] [address] [place], [address] PARTIAL THROMBOPLAST Collected: 07/03/2018 Status: F Source: [place] TIME 6:57 PM [facility] REPOSITORY TYPE CODE TESTS RESULT OUT OF REFERENCE UNITS RANGE LAB L300.4310 24.1-36.2 Seconds High PTT 45.6 Performed By: #### L300.3900, L300.4310 #### [facility] [address] [place], [address] TROPONIN-I Collected: 07/03/2018 Status: F Source: [place] 3:12 PM [facility] REPOSITORY Order Comment: 'TROP' Serial specimen #1, [...] Not every elevated troponin is indicative of NC. These values should be used with clinical judgement in examining the patient's clinical picture for diagnosis. To establish a diagnosis of NC versus myocardial injury, there must be a demonstrated rise and/or fall in the troponin values, in addition to ischemic symptoms, EKG changes, new regional wall motion abnormality, and/or angiographical evidence. PLEASE NOTE: REFERENCE RANGES EDITED 17 Performed By: #### L501.4010 #### [facility] [address] [place], [address] CONSULTATION Observed: 07/03/2018 Status: F Source: [place] 2:21 PM [facility] REPOSITORY [facility] Medical Records Department [address] [place] [address] Consultation 07/03/18 1405 MR#: [id number] Acct: [id number] Name: SHAILA STOLL Rep #: [id number] : 1950 67 From: Kash Rollins MD PCP: Katlyn Mullins DO Status: ADM IN Location: [place] [address] Problem List (1) NSTEMI (non-ST elevated myocardial [...] compatible with an acute non-ST segment elevation NC with a history of chest pressure superimposed [...] he does receive IV fluids from his vp legal affairs oncologist that he can have transient lower [...] not occur. He does note that his vp legal affairs oncologist told him that he may have [...] 80.6 H, Lymph % (Auto) 9.6 L, Loup % (Auto) 8.4, Eos % (Auto) 0.5, [...] noted above Assessment/Plan 1. Non-ST segment elevation NC The etiology for his abnormal cardiac enzymes [...] and his limited life expectancy per his vp legal affairs/oncologist. Was discussed with the patient. The present [...] Dr. Higuera. This note was generated with Securusation software. It may contain incorrect words, spelling, and punctuation that were not noted in checking the note before signing. 07/03/18 1421 <Electronically signed by Kash Rollins MD> Date Kash Rollins MD Cosigner Signature (if applicable): Date CC: Dago Leger MD; Kash Rollins MD; Katlyn Mullins DO Signed CTA CHEST W/WO Observed: 07/03/2018 Status: F Source: [place] CONTRAST 2:05 PM [facility] REPOSITORY [facility] Imaging Services [address] [place] [address] CTA Chest W/WO Contrast MR#: [id number] Acct: [id number] Name: SHAILA STOLL Rep #: [id number] : 1950 M 67 From: Cruzito Michael MD PCP: Katlyn Mullins DO Status: ADM IN Study: CTA Chest W/WO Contrast Date of Exam: 07/03/18 Exam# [id number] Ordering Dr: Kash Rollins MD ADDENDUM by [...] Chest W/WO Contrast 07/03/181728 Date cc: Kash oRllins MD; Katlyn Mullins DO * Signed STUDY: [...] CC: Kash Rollins MD; Katlyn Mullins DO Grab Setter: Signed HISTORY AND PHYSICAL Observed: 07/03/2018 Status: F Source: [place] EXAM 1:11 PM [facility] REPOSITORY [facility] Medical Records Department [address] [place] [address] History and Physical 07/03/18 1256 MR#: [id number] Acct: [id number] Name: SHAILA STOLL Rep #: [id number] : 1950 67 From: Doc Higuera MD PCP: Katlyn Mullins DO Status: ADM IN Y Location: [place] [address] Problem List (1) COPD (chronic obstructive pulmonary [...] is being admitted for acute ST elevation NC, worsening left lower lobe consolidation/atelectasis and unexplained [...] elevated troponin consistent with acute non-ST elevation NC without evidence of acute ischemic changes on EKG. #1 acute non-ST elevation NC: Troponin is elevated at 1.81, no acute [...] therapeutic Lovenox. This note was generated with SeatNinja dictation software. It may contain incorrect words, spelling, and punctuation that were not noted in checking the note before signing. Code Visit Inpatient E AND M: [id number] Init Hosp L3 07/03/18 1311 <Electronically signed by Doc Higuera MD> Date Doc Higuera MD Cosigner Signature: Date (if applicable) CC: Doc Higuera; Katlyn Mullins DO Signed EMERGENCY DEPARTMENT Observed: 07/03/2018 Status: F Source: [place] SUMMARY 10:44 AM [facility] REPOSITORY [facility] Medical Records Department [address] [facility] [place] [address] Emergency Department Summary 07/03/18 1040 MR#: [id number] Acct: [id number] Name: STOLLSHAILA Rep #: [id number] : 1950 67 From: Grazyna Hernandez DO [...] [Admit] Impression: [Abdominal pain-etiology uncertain Non-ST elevation NC Fatigue] This note was generated with SeatNinja dictation software. It may contain incorrect words, [...] your Primary Care Provider. Call [facility] ([phone]) or report to the closest Emergency Room. Call 911 if necessary. 07/03/18 1044 <Electronically signed by Grazyna Hernandze DO> Date Grazyna Hernandez DO Cosigner Signature (If Indicated): Date CC: Katlyn Mullins DO LACTIC ACID Collected: 07/03/2018 Status: F Source: [place] 9:32 AM [facility] REPOSITORY Order Comment: Yes/No query for Sepsis Lactate Rule Y TYPE CODE TESTS RESULT OUT OF RANGE REFERENCE UNITS LAB L503.6005 0.4-2.0 mmol/L Normal LACTIC ACID 1.1 Performed By: #### L503.6005 #### [facility] [address] [facility], [address] ABDOMEN/PELVIS WITHOUT Observed: 07/03/2018 Status: F Source: [place] CONT 9:22 AM [facility] REPOSITORY [facility] Imaging Services [address] [place] [address] Abdomen/Pelvis without Cont MR#: [id number] Acct: [id number] Name: SHAILA STOLL Davi Rep #: [id number] : 1950 M 67 From: Fritz Lee MD PCP: Katlyn Mullins DO Status: REG ER Study: Abdomen/Pelvis without Cont Date of Exam: 07/03/18 Exam# [id number] Ordering Dr: Grazyna Hernandez DO STUDY: CT [...] CC: Grazyna Hernandez DO; Katlyn Mullins DO Grab Setter: Signed CHEST 1 VIEW Observed: 07/03/2018 Status: F Source: [place] (PORTABLE) 9:22 AM [facility] REPOSITORY [facility] Imaging Services [address] [place] [address] Chest 1 View (Portable) MR#: [id number] Acct: [id number] Name: SHAILA STOLL Rep #: [id number] : 1950 M 67 From: Fritz Lee MD PCP: Katlyn Mullins DO Status: REG ER Study: Chest 1 View (Portable) Date of Exam: 07/03/18 Exam# [id number] Ordering Dr: Grazyna Hernandez DO STUDY: X-RAY [...] CC: Grazyna Hernandez DO; Katlyn Mullins DO Grab Setter: Signed CBC W/DIFF, AUTOMATED Collected: 07/03/2018 Status: F Source: [place] 9:15 AM [facility] REPOSITORY TYPE CODE TESTS RESULT OUT OF [...] By: #### L100.0100 #### [facility] [address] [place], [place], [address] COMPREHENSIVE METABOLIC Collected: 07/03/2018 Status: F Source: [facility] 9:15 AM [facility] REPOSITORY TYPE CODE TESTS RESULT OUT OF [...] L500.4050, L501.2450, L501.4010 #### [facility] [address] [facility] [place], [place], [address] LIPASE Collected: 07/03/2018 Status: F Source: [place] 9:15 AM [facility] REPOSITORY TYPE CODE TESTS RESULT OUT OF REFERENCE UNITS RANGE LAB L501.2450 73-393 U/L Low LIPASE 70 Performed By: #### L500.4050, L501.2450, L501.4010 #### [facility] [address] [facility] [place], [place], [address] TROPONIN-I Collected: 07/03/2018 Status: F Source: [place] 9:15 AM [facility] REPOSITORY TYPE CODE TESTS RESULT OUT OF RANGE REFERENCE UNITS LAB L501.4010 <0.045 ng/mL High alert 1.810 TROPONIN-I Result Comment: Critical Result(s) Called at: 09:55:33 07/03/2018 by: Charles Wade to Cipriano HEREDIA TROPONIN-I EXPECTED VALUES <0.045 Negative 0.045 - 0.590 Consistent with Cardiac Damage > OR = 0.600 Critical Value Not every elevated troponin is indicative of NC. These values should be used with clinical judgement in examining the patient's clinical picture for diagnosis. To establish a diagnosis of NC versus myocardial injury, there must be a demonstrated rise and/or fall in the troponin values, in addition to ischemic symptoms, EKG changes, new regional wall motion abnormality, and/or angiographical evidence. PLEASE NOTE: REFERENCE RANGES EDITED 17 Performed By: #### L500.4050, L501.2450, L501.4010 #### [facility] [address] [facility], [address] PULMONARY VISIT REPORT Observed: 07/02/2018 Status: F Source: [place] 6:41 PM [facility] REPOSITORY Pulmonary Medicine of [address] [place] [address] OFFICE VISIT Date of Service: 07/01/18 MR#: [id number] Acct: [id number] Name: SHAILA STOLL Rep #: [id number] : 1950 Provider: Miguelina Saenz Age/Sex: 67/M Location: [facility] Status: Signed Assessment AND Plan 1. [...] Reasons: USE OF CONTINUOUS OXYGEN, PRODUCTIVE COUGH Quantity Surveyor Required: No Accompanied by: Allergies morphine Adverse [...] Admin Location Lot Number Expiration Date NDC Gas Maker 2.5 mg Continuous Nebul [id number] 10/01/18 2496-8239-00 MYLAN ization Coding Level of Care Code Off vis,est,level 4 Diagnoses Pleural effusion, malignant J91.0 COPD (chronic obstructive pulmonary disease) J44.9 07/02/18 1841 <Electronically signed by Miguelina VALLES> Date Miguelina VALLES Cosigner Signature: Date (if applicable) CC: Fernando Mock DO PROTEIN, BODY FLUID Collected: 07/02/2018 Status: F Source: [place] 11:03 AM [facility] REPOSITORY Order Comment: Specimen Source: THORACENTESIS TYPE CODE TESTS RESULT OUT OF RANGE REFERENCE UNITS LAB L503.0300 Not Establ. g/dL Normal 5.5 PROTEIN,BF Performed By: #### L503.0300, L504.0250 #### [place] [facility] [address] [place], [address] LDH,BODY FLUID Collected: 07/02/2018 Status: F Source: [place] 11:03 AM [facility] REPOSITORY Order Comment: Specimen Source: THORACENTESIS TYPE CODE TESTS RESULT OUT OF RANGE REFERENCE UNITS LAB L504.0250 Not Establ. Units/l Normal LDH,BF 837 Performed By: #### L503.0300, L504.0250 #### [facility] [address] [place], [address] Observed: 07/02/2018 Status: F Source: [place] CULTURE, BODY FLUID 11:03 [facility] REPOSITORY List Antibiotics Last 48 Hours? UNK List Antibiotics to be Started? UNK Gram Stain Centrifuged Specimen? Culture performed on centrifuged specimen Gram Stain 3+ White Blood Cells No organisms seen Body Fluid Cult No growth aerobically. Cult, Anaerobic No growth in 5 days. Performed By: #### M100.1300 #### [facility] [address] [place], [address] FLUID/WASHING Observed: 07/02/2018 Status: F Source: [place] 11:03 [facility] REPOSITORY Patient: SHAILA STOLL : 1950 (67/M) Acct Num: [id number] Phys: Miguelina Saenz AUTOMOTIVE TITLE CLERK Unit Num: [id number] Loc: US Specimen: [id number] Received: 07/02/18 - 1154 Spec Type: Fluid TISSUES 1 TISSUES: Pleural fluid, NOS ADDENDUM Addendum Number 1 Flow analysis from [facility] does not reveal a lymphoproliferative disorder. The complete flow report is viewable in patient's EMR. Addendum Signed [facility] 07/07/18 <signature on file> COMMENT Immunohistochemistry ([id number]) supports the above diagnosis. Mucin stain with [...] including cell block. / 07/02/18 TC:0 CPT: 28273, 65695, 56377 CYTOLOGY STUDY Slides are reviewed. DIAGNOSIS CYTOLOGY Thoracentesis fluid for cytology (cytospin and cell block): Positive for malignant cells, consistent with adenocarcinoma. AM:rg 07/05/18 HEADER OPERATION: Ultrasound-guided left thoracentesis PRE-OP DIAGNOSIS: Pleural effusion TISSUE SUBMITTED: Thoracentesis fluid for cytology Signed [facility] 07/07/18 <signature on file> Performed By: #### PFLU #### [facility] [address] [place], [address] CYTOLOGY, BODY FLUID / Collected: 07/02/2018 Status: F Source: [place] CSF 11:03 AM [facility] REPOSITORY Order Comment: Comments: with flow cytometry Comments: with flow cytometry Specimen Source: THORACENTESIS TYPE CODE TESTS RESULT OUT OF RANGE REFERENCE UNITS LAB L350.1000 SEE Normal PATHOLOGY CYTOLOGY,BF REPORT /CSF Result Comment: Specimen submitted to Anatomical Pathology Department for testing. Performed By: #### L350.1000 #### [facility] [address] [place], [address] MISCELLANEOUS LAB Collected: 07/02/2018 Status: F Source: [place] PROCEDURE 11:00 AM [facility] REPOSITORY Order Comment: Comments: [id number] [id number] pleural effusion Test(s) Ordered: Flow [id number] TYPE CODE TESTS RESULT OUT OF RANGE REFERENCE UNITS LAB L801.1541 Normal [facility] [place] FLOW SEE PATH TEST Performed By: #### L801.1541 #### [facility] [address] [place], [address] CHEST INSP/EXP 2 VIEW Observed: 07/02/2018 Status: F Source: [place] 10:43 AM [facility] REPOSITORY [facility] Imaging Services [address] [place] [address] Chest Insp/Exp 2 View MR#: [id number] Acct: [id number] Name: SHAILA STOLL Rep #: [id number] : 1950 M 67 From: Chacho Babcock MD PCP: Katlyn Mullins DO Status: REG CLI Study: Chest Insp/Exp 2 View Date of Exam: 07/02/18 Exam# [id number] Ordering Dr: Chacho Babcock MD STUDY: X-RAY [...] Chacho Babcock MD at 8:17 EST Tel [phone], Service support , CC: Chacho Babcock MD; Katlyn Mullins DO Grab Setter: Signed THORACENTESIS W US Observed: 07/02/2018 Status: F Source: [place] 9:41 AM [facility] REPOSITORY [facility] Imaging Services [address] [place] [address] Thoracentesis W US MR#: [id number] Acct: [id number] Name: JERMANSHAILA Davi Rep #: [id number] : 1950 M 67 From: Chacho Babcock MD PCP: Katlyn Mullins DO Status: REG CLI Study: Thoracentesis W US Date of Exam: 07/02/18 Exam# [id number] Ordering Dr: Miguelina Saenz AUTOMOTIVE TITLE CLERKSusana PROCEDURE: ULTRASOUND GUIDED THORACENTESIS. DATE: July 02, [...] local anesthesia. Under ultrasound guidance, a 5 Mont[place]grin thoracentesis needle/catheter system was advanced into the [...] Chacho Babcock MD at 11:37 EST Tel [phone], Service support , CC: Miguelina Mullins DO Grab Setter: Signed IMMUNOHISTOCHEMISTRY Observed: 07/02/2018 Status: F Source: [place] 12:00 AM [facility] REPOSITORY Patient: SHAILA STOLL : 1950 (67/M) Acct Num: [id number] Phys: Miguelina Saenz NP Unit Num: [id number] Loc: [place] Specimen: [id number] Received: 07/05/181314 Spec Type: IMMUNO TISSUES 1 TISSUES: THORACIC FLUID SPECIMEN INFORMATION: Tissue Source: Thoracentesis fluid Clinical Info: Pleural effusion Specimen Number: [id number] CPT code: 35133, 21213 x22 METHODOLOGY: Deparaffinized sections of prefer/formalin-fixed tissue or PAP/DQ stained slides are incubated with monoclonal/polyclonal antibodies/oligonucleotide probes. Localization is made via biotin free immunoperoxidase method. Appropriate controls are performed and reacted as expected. Results on target cell population are indicated in the following table: RESULTS: ANTIBODY / CLONE RESULT CK7 (OV-TL12/30) positive CK20 (KS20.8) negative CDX2 (UES9494H) negative CD45 (RP2/18) negative CALRET (polyclonal) negative [...] performance characteristics determined by [facility]. They may not have been cleared [...] the above diagnosis. IDC: PHYSICIAN AND INSTITUTION [place] [address] Signed [facility] 07/07/18 <signature on file> Performed By: #### PIMM #### [facility] [address] [place], [address] PROTHROMBIN TIME W/INR Collected: 07/01/2018 Status: F Source: [place] 1:57 PM [facility] REPOSITORY TYPE CODE TESTS RESULT OUT OF RANGE REFERENCE UNITS LAB L300.4150 11.7-14.9 SECONDS High PROTIME 15.4 LAB L300.4200 Normal INR 1.2 Performed By: #### L300.3900, L300.4310 #### [facility] [address] [place], [address] PARTIAL THROMBOPLAST Collected: 07/01/2018 Status: F Source: [place] TIME 1:57 PM [facility] REPOSITORY TYPE CODE TESTS RESULT OUT OF REFERENCE UNITS RANGE LAB L300.4310 24.1-36.2 Seconds High PTT 41.7 Performed By: #### L300.3900, L300.4310 #### [facility] [address] [place], [address] PROTEIN, TOTAL Collected: 07/01/2018 Status: F Source: [place] 1:57 PM [facility] REPOSITORY Order Comment: Serial Specimen #1, #2 or #3? 0 TYPE CODE TESTS RESULT OUT OF RANGE REFERENCE UNITS LAB L501.1500 6.4-8.2 g/dL High T PROT 8.7 LAB L501.1950 2.2-4.2 g/dL High GLOB 5.7 LAB L501.2000 0.9-2.4 RATIO Low A/G 0.5 Performed By: #### L001.0705, L504.2610 #### [facility] [address] [place], [address] LDH Collected: 07/01/2018 Status: F Source: [place] 1:57 PM [facility] REPOSITORY Order Comment: Serial Specimen #1, #2 or #3? 0 TYPE CODE TESTS RESULT OUT OF RANGE REFERENCE UNITS LAB L504.2610 87-241 U/L Normal LDH 233 Performed By: #### L001.0705, L504.2610 #### [facility] [address] [place], [address] ONCOLOGY VISIT REPORT Observed: 07/01/2018 Status: F Source: [place] 12:33 PM [facility] REPOSITORY [facility] [address] [place] [address] OFFICE VISIT Date of Service: 07/01/18 1226 MR#: [id number] Acct: [id number] Name: SHAILA STOLL Rep #: [id number] : 1950 From: Dago Leger MD Age/Sex: [...] radical prostatectomy in October 2014 for a [place] score 9 adenocarcinoma involving about 80% of [...] underwent left lower lobe sleeve lobectomy at [facility] by Dr. Alfonso. Final pathology revealed a [...] lower lobectomy and lymph node dissection at [facility] July 03, 2017 with R0 resection. Pathologic [...] F Source: [place] -THIGH SUBS 9:34 AM [facility] REPOSITORY [facility] Imaging Services [address] [place] [address] PET/CT Tumor Base -Thigh Subs MR#: [id number] Acct: [id number] Name: SHAILA STOLL Rep #: [id number] : 1950 M 67 From: Lauro Lopez DO PCP: Fernando Mock DO Status: REG RCR Study: PET/CT Tumor Base -Thigh Subs Date of Exam: 06/28/18 Exam# [id number] Ordering Dr: Dago Leger MD EXAMINATION: FDG [...] CC: Fernando Mock DO; Dago Leger MD Grab Setter: Signed 6 MINUTE WALK TEST Observed: 06/22/2018 Status: F Source: [place] 8:41 AM [facility] REPOSITORY [facility] Pulmonary Services/Neurology [facility] [place] [address] MR#: [id number] Acct: [id number] Name: SHAILA STOLL Rep #: [id number] : 1950 67 From: David Mock DO Referring Dr: Miguelina Saenz AUTOMOTIVE TITLE CLERK Date: Ordering Dr: Sex: M C Location: PSN PSN 6 Minute Walk Test - 6 Minute Walk Test 6 Minute Walk Test: 6 Minute Walk Test PSN:6-Minute Walk Test Start: 06/21/18 16:36 Freq: Status: Active Protocol: RESP.6MINW Document 06/21/18 16:15 [facility] (Rec: 06/21/18 16:46 [facility] [id number]) 6 Minute Walk Test Date Performed 06/21/18 [...] CC: Date Dictated: 06/22/18838 Date Transcribed: 06/22/18838 Grab Setter: David Mock DO Signed PULMONARY VISIT REPORT Observed: 06/21/2018 Status: F Source: [place] 4:32 PM [facility] REPOSITORY [facility] [place] [facility] [address] [place] [address] OFFICE VISIT Date of Service: 06/21/18 MR#: [id number] Acct: [id number] Name: SHAILA STOLL Rep #: [id number] : 1950 Provider: Miguelina Saenz Age/Sex: 67/M Location: [facility] Status: Signed Assessment AND Plan 1. SOB [...] gets flushed. He has not tried any vgpd-shv-ymxdeuy medications for his symptoms. He is not [...] DAILY #30 ml 04/28/18 [Rx Confirmed 06/21/18] [facility] Medical History Viral pharyngitis (Acute) Nasopharyngitis (Acute) [...] 06/21/2018 Status: F Source: [place] 11:27 AM [facility] REPOSITORY [facility] [address] [place] [address] OFFICE VISIT Date of Service: 06/21/1859 MR#: [id number] Acct: [id number] Name: SHAILA STOLL Davi Rep #: [id number] : 1950 From: Dago Leger MD Age/Sex: [...] radical prostatectomy in October 2014 for a [place] score 9 adenocarcinoma involving about 80% of [...] underwent left lower lobe sleeve lobectomy at [facility] by Dr. Alfonso. Final pathology revealed a [...] lower lobectomy and lymph node dissection at [facility] July 03, 2017 with R0 resection. Pathologic [...] Status: F Source: [place] CONTRAST 10:10 PM [facility] REPOSITORY [facility] Cardiovascular Services [address] [place] [address] Echo Complete W/ Contrast 06/18/18 0856 MR#: [id number] Acct: [id number] Name: SHAILA STOLL Rep #: [id number] : 1950 67 From: Rory Wall MD [...] DO Date Dictated: 06/18/18855 Date Transcribed: 06/18/182202 Grab Setter: Signed ABDOMEN/PELVIS WITH Observed: 06/18/2018 Status: F Source: [place] CONTRAST 9:47 AM [facility] REPOSITORY [facility] Imaging Services [address] [place] [address] Abdomen/Pelvis WITH Contrast MR#: [id number] Acct: [id number] Name: JERMANSHAILA Davi Rep #: [id number] : 1950 M 67 From: Cruzito Paz MD PCP: Katlyn Mullins DO Status: REG CLI Study: Abdomen/Pelvis WITH Contrast Date of Exam: 06/18/18 Exam# [id number] Ordering Dr: Dago Leger MD STUDY: CT [...] CC: Dago Leger MD; Katlyn Mullins DO Grab Setter: Signed CHEST WITH CONTRAST Observed: 06/18/2018 Status: F Source: [place] 9:47 AM [facility] REPOSITORY [facility] Imaging Services [facility] [place] [address] Chest WITH Contrast MR#: [id number] Acct: [id number] Name: SHAILA STOLL Rep #: [id number] : 1950 67 From: Cruzito Paz MD PCP: Katlyn Mullins DO Status: REG CLI Study: Chest WITH Contrast Date of Exam: 06/18/18 Exam# [id number] Ordering Dr: Dago Leger MD STUDY: CT [...] CC: Dago Leger MD; Katlyn Mullins DO Grab Setter: Signed IRON+IRON BINDING Collected: 06/15/2018 Status: F Source: [place] CAPACITY 11:43 AM [facility] REPOSITORY Order Comment: Reason for Laboratory Test . TYPE CODE TESTS RESULT OUT OF RANGE REFERENCE UNITS LAB L503.6075 250-450 ug/dL TIBC Normal 256 LAB L503.6150 65-175 ug/dL Low IRON 38 LAB L503.6250 15.0-55.0 % Low IRON SATURATION 14.8 Performed By: #### L503.6030, L503.6550 #### [facility] [address] [place], [address] FERRITIN Collected: 06/15/2018 Status: F Source: [place] 11:43 AM [facility] REPOSITORY Order Comment: Reason for Laboratory Test . TYPE CODE TESTS RESULT OUT OF REFERENCE UNITS RANGE LAB L503.6550 26-388 ng/mL High FERRITIN 503 Performed By: #### L503.6030, L503.6550 #### [facility] [address] [place], [address] VITAMIN B12 Collected: 06/15/2018 Status: F Source: [place] 11:43 AM [facility] REPOSITORY Order Comment: Reason for Laboratory Test . TYPE CODE TESTS RESULT OUT OF REFERENCE UNITS RANGE LAB L503.0105 211-911 pg/mL High Vitamin B12 > 2000 Performed By: #### L503.0105 #### [facility] [address] [place], [address] ONCOLOGY VISIT REPORT Observed: 06/15/2018 Status: F Source: [place] 11:35 AM [facility] REPOSITORY [facility] [address] [place] [address] OFFICE VISIT Date of Service: 06/15/18 1103 MR#: [id number] Acct: [id number] Name: SHAILA STOLL Rep #: [id number] : 1950 From: Dago Leger MD Age/Sex: [...] underwent left lower lobe sleeve lobectomy at [facility] by Dr. Alfonso. Final pathology revealed a [...] lower lobectomy and lymph node dissection at [facility] July 03, 2017 with R0 resection. Pathologic [...] Dago Leger MD> Date Dago Leger MD [facility] Signature: Date (if applicable) CC: Tavon Mullen MD; Fernando Mock DO PULMONARY FUNCTION Observed: 06/10/2018 Status: F Source: [place] TEST 1:04 PM [facility] REPOSITORY [facility] Pulmonary Services/Neurology [address] [place] [address] MR#: [id number] Acct: [id number] Name: SHAILA STOLL Rep #: [id number] : 1950 67 From: David Mock DO Referring Dr: Tavon Mullen MD Status: REG CLI Ordering Dr: Date: Location: [facility] Sex: M C INTRODUCTION: The patient is [...] Date Dictated: 06/10/18 130 Date Transcribed: 06/10/181301 Grab Setter: JOSI Signed PULMONARY VISIT REPORT Observed: 06/08/2018 Status: F Source: [place] 8:11 AM [facility] REPOSITORY [facility] [place] [address] [place] [address] OFFICE VISIT Date of Service: 06/08/18 MR#: [id number] Acct: [id number] Name: SHAILA STOLL Rep #: [id number] : 1950 Provider: Tavon Mullen MD Age/Sex: 67/M Location[place] [facility] Status: Signed Assessment AND Plan Problems 1. [...] 88.904 kg Intake Visit Reasons: 1 M Quantity Surveyor Required: No Accompanied by: Is patient in [...] DAILY #30 ml 04/28/18 [Rx Confirmed 06/08/18] [facility] Medical History Viral pharyngitis (Acute) Nasopharyngitis (Acute) [...] 06/08/2018 Status: F Source: [place] 8:11 AM [facility] REPOSITORY Order Comment: Reason for Laboratory [...] By: #### L100.0100 #### [facility] [address] [place], [address] COMPREHENSIVE METABOLIC Collected: 06/08/2018 Status: F Source: [facility] 8:11 AM [facility] REPOSITORY Order Comment: Reason for Laboratory [...] By: #### L500.4050 #### [facility] [address] [facility] [place], [place], [address] THYROID STIM HORMONE Collected: 06/08/2018 Status: F Source: [place] ([facility]) 8:03 AM [facility] REPOSITORY TYPE CODE TESTS RESULT OUT OF RANGE REFERENCE UNITS LAB L501.9520 0.358-3.74 uIU/mL Normal TSH 3.35 Performed By: #### L501.9520 #### [facility] [address] [place], [address] PSA,TOTAL - ANNUAL Collected: 05/18/2018 Status: F Source: [place] SCREEN 9:54 AM [facility] REPOSITORY TYPE CODE TESTS RESULT OUT OF RANGE REFERENCE UNITS LAB L501.9910 0.00-4.00 ng/mL Normal PSA,TOT < 0.01 SCREEN Result Comment: This test was performed using the TPSA assay method for the [employer] chemistry system. Values obtained with different assay methods cannot be used interchangably. When changing PSA assays in the course of monitoring a patient, additional sequential testing should be carried out to confirm baseline values. Performed By: #### L501.9910 #### [facility] [address] [place], [address] PULMONARY VISIT REPORT Observed: 04/28/2018 Status: F Source: [place] 12:03 PM [facility] REPOSITORY [facility] [place] [address] [place] [address] OFFICE VISIT Date of Service: 04/28/18 MR#: [id number] Acct: [id number] Name: SHAILA STOLL Rep #: [id number] : 1950 Provider: Tavon Mullen MD Age/Sex: 67/M Location[place] [facility] [place] Status: Signed Assessment AND Plan Problems 1. [...] in late March at [facility] with complaints of right arm weakness and [...] kg Intake Visit Reasons: Shortness of breath Quantity Surveyor Required: No Allergies morphine Adverse Reaction (Intermediate, [...] DAILY #30 ml 04/28/18 [Rx Confirmed 04/28/18] [facility] Medical History Viral pharyngitis (Acute) Nasopharyngitis (Acute) [...] DO CONSULTATION Observed: 04/08/2018 Status: F Source: [place] 5:45 PM [facility] REPOSITORY [facility] Medical Records Department [address] [place] [address] Consultation 04/01/18 1419 MR#: [id number] Acct: [id number] Name: STOLLSHAILA Rep #: [id number] : 1950 67 From: Andreea Rivera MD PCP: Fernando Mock DO Status: DIS SHYLA Y Location: [place] [address] Problem List (1) CVA (cerebral vascular accident) [...] MCA punctate embolic strokes and also bilateral WAITER/WAITRESS SECOND CLASS distribution/ b/l occipital punctate embolic stroke. 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 At present patient denies any MONREAL, visual disturbances, speech disturbances, sensory loss or focal motor weakness. LDL on admission was 143, TTE showed EF 65%, mildly enlarged LA, no PFO. Lives with his spouse, denies any falls, does not use cane or walker to ambulate, and does not need assistance for his ADLs. Impression B/L MCA/WAITER/WAITRESS SECOND CLASS punctate embolic stroke-probably secondary to underlying malignancy [...] hypercoagulable panel -Recommend ophthalmology consult as outpatient. -half-way Goal BP < 130/80 mmHg and Goal [...] patient. Code Visit Inpatient E AND M: 09412 Init Hosp L3 04/08/18 1745 <Electronically signed by Andreea Rivera MD> Date Andreea Rivera MD Cosigner Signature (if applicable): Date CC: Tyler Rivera MD; DO Karine Chavez 12 LEAD ELECTROCARDIOGRAM Observed: 04/06/2018 Status: F Source: [place] 1:56 PM [facility] REPOSITORY [facility] Cardiovascular Services [address] [place] [address] 12 Lead EKG 03/31/18 1856 MR#: [id number] Acct: [id number] Name: SHAILA STOLL Rep #: [id number] : 1950 67 From: Fritz Zamora MD Attending Dr: Jeffery Dominguez M.D. Status: DIS SHYLA Ordering Dr: Trung Reed MD Date: 03/31/18 Location: [facility] Sex: M C Admitted: 03/31/18 Test [...] IS UNCONFIRMED Confirmed by FRITZ ZAMORA ([id number]), publishing editor SUMA VANEGAS ([id number]) on 04/06/2018 1:55:53 PM Referred By: DR REED Confirmed By:FRITZ ZAMORA 04/06/18 1356 Date Fritz Zamora MD CC: Fernando Mock DO; Jeffery Dominguez M.D.; Trung Reed MD Signed CAROTID DUPLEX Observed: 04/02/2018 Status: F Source: [place] ULTRASOUND 2:43 PM [facility] REPOSITORY [facility] Cardiovascular Services [address] [place] [address] Carotid Duplex Ultrasound 04/01/18 0910 MR#: [id number] Acct: [id number] Name: SHAILA STOLL Rep #: [id number] : 1950 67 From: Andreea Rivera MD Attending Dr: Jeffery Dominguez M.D. Status: DIS SHYLA Ordering Dr: Jeffery Dominguez MD Date: 04/01/18 Location: [facility] Sex: M C Admitted: 03/31/18 Reason [...] arteries. Ordering Physician: Jeffery Dominguez Referring Physician: ITSHA AMARO Performed By: Merissa Kong, MARY, RVT 04/02/18 1443 Date Andreea Rivera MD CC: BILLIE Chavez M.D. Date Dictated: 04/01/18 0910 Date Transcribed: 04/02/18 144 Grab Setter: Signed 12 LEAD ELECTROCARDIOGRAM Observed: 04/02/2018 Status: F Source: [place] 1:35 PM [facility] REPOSITORY [facility] Cardiovascular Services [address] [place] [address] 12 Lead EKG 04/01/18 0540 MR#: [id number] Acct: [id number] Name: SHAILA STOLL Rep #: [id number] : 1950 67 From: Kash Rollins MD Attending Dr: Jeffery Dominguez M.D. Status: DIS SHYLA Ordering Dr: Trung Reed MD Date: 04/01/18 Location: [facility] Sex: M C Admitted: 03/31/18 Test Reason : AM EKG Blood Pressure : / mmHG Vent. Rate : 066 BPM Atrial Rate : 066 BPM P-R Int : 142 ms QRS Dur : 078 ms QT Int : 418 ms P-R-T Axes : 048 011 030 degrees QTc Int : 438 ms Normal sinus rhythm Normal ECG Confirmed by KAREN JOHNSON, KASH ([id number]), publishing editor SUMA VANEGAS ([id number]) on 04/02/2018 1:35:13 PM Referred By: DR REED Confirmed By:KASH ROLLINS MD 04/02/18 1335 Date Kash Rollins MD CC: Fernando Mock DO; Jeffery Dominguez M.D.; Trung Reed MD Signed 12 LEAD ELECTROCARDIOGRAM Observed: 04/02/2018 Status: F Source: [place] 1:26 PM [facility] REPOSITORY [facility] Cardiovascular Services [address] [place] [address] 12 Lead EKG 03/31/18 1456 MR#: [id number] Acct: [id number] Name: SHAILA STOLL Rep #: [id number] : 1950 67 From: Kash Rollins MD Attending Dr: Jeffery Dominguez M.D. Status: DIS SHYLA Ordering Dr: Hanna Vega MD Date: 03/31/18 Location: [facility] Sex: M C Admitted: 03/31/18 Test [...] (limb leads) Confirmed by KAREN JOHNSON, KASH ([id number]), publishing editor SUMA VANEGAS ([id number]) on 04/02/2018 1:25:42 PM Referred By: MAXIMO Confirmed By:KASH ROLLINS MD 04/02/18 1325 Date Kash Rollins MD CC: Hanna Vega MD; Fernando Mock DO; Jeffery Dominguez M.D. Signed DISCHARGE SUMMARY Observed: 04/01/2018 Status: F Source: [place] 4:56 PM [facility] REPOSITORY [facility] Medical Records Department [address] [place] [address] Discharge Summary 04/01/18 1651 MR#: [id number] Acct: [id number] Name: SHAILA STOLL Rep #: [id number] : 1950 67 From: Jeffery Dominguez MD PCP: Fernando Mock DO Status: ADM SHYLA Y Location: [place] [address] Discharge Date and Diagnosis - Problem List [...] left lower lobe lung (Chronic) [facility] 07/03/17 Hospital Course and Treatment Imaging Results: [...] applicable Code Visit Inpatient E AND M: 78120 Disch Hosp 04/01/18 1309 <Electronically signed by Jeffery Dominguez MD> Date Jeffery Dominguez MD Cosigner Signature (if applicable): Date CC: Fernando Mock DO; Jeffery Dominguez M.D. Signed DISCHARGE INSTRUCTION Observed: 04/01/2018 Status: F Source: [place] 4:50 PM [facility] REPOSITORY [facility] Medical Records Department [address] [place] [address] Instructions for Home/Discharge Instructions 04/01/18 1649 MR#: [id number] Acct: [id number] Name: SHAILA STOLL Rep #: [id number] : 1950 67 From: Jeffery Dominguez MD [...] HEMOGLOBIN A1C Collected: 04/01/2018 Status: F Source: [place] 3:05 PM [facility] REPOSITORY TYPE CODE TESTS RESULT OUT OF RANGE REFERENCE UNITS LAB L501.9985 4.2-6.3 % Normal HGB A1C 5.4 Performed By: #### L501.9985 #### [facility] [address] [place], [place], [address] PROTEIN C DEFIC. Collected: 04/01/2018 Status: F Source: [facility] 3:05 PM [facility] REPOSITORY TYPE CODE TESTS RESULT OUT OF RANGE REFERENCE UNITS LAB L3100.7310 60-150 % Normal PROTEIN C 86 Performed By: #### L3100.7275, L3100.7325, L3100.8410, L3300.0450, L3410.2000, L4500.2000, L4500.5000 #### [facility] (refer to report for specific site) refer to report for address and phone number PROTEIN C, FUNCTIONAL Collected: 04/01/2018 Status: F Source: [place] 3:05 PM [facility] REPOSITORY TYPE CODE TESTS RESULT OUT OF RANGE REFERENCE UNITS LAB L3100.7325 73-180 % Normal PROT C, 129 Funct Performed By: #### L3100.7275, L3100.7325, L3100.8410, L3300.0450, L3410.2000, L4500.2000, L4500.5000 #### [facility] (refer to report for specific site) refer to report for address and phone number ANTICARDIOLIPIN IGG, IGM Collected: 04/01/2018 Status: F Source: [place] 3:05 PM [facility] REPOSITORY TYPE CODE TESTS RESULT OUT OF [...] report for address and phone number AT [facility] / Collected: 04/01/2018 Status: F Source: [place] IMMUNOL 3:05 PM [facility] REPOSITORY TYPE CODE TESTS RESULT OUT OF [...] Status: F Source: [facility] 3:05 PM [facility] REPOSITORY TYPE CODE TESTS RESULT OUT OF [...] Status: F Source: [place] ANALYSIS 3:05 PM [facility] REPOSITORY TYPE CODE TESTS RESULT OUT OF RANGE REFERENCE UNITS LAB L4500.2100 . Normal FACTOR Comment II,DNA Result Comment: NEGATIVE No mutation identified. Comment: A point mutation ([id number]) in the factor II (prothrombin) gene is [...] mutations. This assay detects only the prothrombin Q34966K mutation and does not measure genetic abnormalities [...] health care providers to discuss results at [phone] (9880). Methodology: DNA analysis of the Factor II gene was performed by PCR amplification followed by restriction analysis. The diagnostic sensitivity is >99% for both. All the tests must be combined with clinical information for the most accurate interpretation. Molecular-based testing is highly accurate, but as in any laboratory test, diagnostic errors may occur. This test was developed and its performance characteristics determined by [employer]. It has not been cleared or approved by the Food and Drug Administration. Poort SR, et al. Blood. 1996; 88:3506-2875. Claudette BHAKTA. Circulation. 2004; 110:e15-e18. Kera I, et al. Arterioscler Thromb Vasc Biol. 1999; 19:700-703. Felicia Can, PhD, FACMG Mary Quevedo, PhD, [facility]ACMG Karina JettS., PhD, [facility] Florence Diop, PhD, [facility]AC[facility] Juan Jose Simons, PhD, FAC Alistair Vazquez, PhD, FAC Performed at: [facility] [address] [id number] Station Supervisor: Feliciano Miller MD, Phone: [phone] Performed at: [address] [id number] Station Supervisor: Josué Mc PhD, Phone: [phone] Performed at: [facility] [address] [place], [place] [address] Station Supervisor: Ayden Lua MD, Phone: [phone] Performed By: #### S2014.9023, O2759.0802, Z2139.0605, L3347.4420, L3410.2000, L4500.2000, L4500.5000 #### [facility] (refer to report for specific site) refer to report for address and phone number SHAHRIAR ELDER Collected: 04/01/2018 Status: F Source: [place] MUTATION 3:05 PM [facility] REPOSITORY TYPE CODE TESTS RESULT OUT OF [...] the workup for venous thrombosis include the [id number] mutation in the factor II (prothrombin) gene, protein S and C deficiency, and antithrombin deficiencies. Anticardiolipin antibody and lupus anticoagulant analysis may be appropriate for certain patients, as well as homocysteine levels. Contact your local [facility] for information on how to order additional testing if desired. Genetic counselors are available for health care providers to discuss results at [phone] ([phone]). Methodology: DNA analysis of the Factor V [...] Diop, PhD, FAC Juan Jose Simons, PhD, [facility] Alistair Vazquez PhD, [facility] Performed By: #### L3100.7224, L3100.7342, L3100.8410, L3300.0450, L3410.2000, L4500.2000, L4500.5000 #### [facility] (refer to report for specific site) refer to report for address and phone number MISCELLANEOUS LAB Collected: 04/01/2018 Status: F Source: [place] PROCEDURE 3:05 PM [facility] REPOSITORY Order Comment: Comments: dRVVT (dilute Josh viper venom time) TYPE CODE TESTS RESULT OUT OF RANGE REFERENCE UNITS LAB L801.1541 Normal [facility] TEST Result Comment: TEST RESULT FLAG UNITS REF INTERVAL Dilute Josh's Viper Venom DRVVT Screen Seconds 76.7 High sec Reference Range: <= 47.0 DRVVT Confirm Seconds 58.6 sec DRVVT Ratio 1.2 ratio Reference Range: 0.8 - 1.2 TESTING PERFORMED AT [facility]. ORIGINAL REPORT ON FILE IN LAB CONTAINS ADDITIONAL TEST SITE INFORMATION. Performed By: #### L801.1541 #### [facility] [address] [place], [address] CTA NECK W/WO Observed: 04/01/2018 Status: F Source: [place] CONTRAST 2:19 PM [facility] REPOSITORY [facility] Imaging Services [address] [place] [address] CTA Neck W/WO Contrast MR#: [id number] Acct: [id number] Name: SHAILA STOLL Rep #: [id number] : 1950 M 67 From: Chacho Babcock MD PCP: Fernando Mock DO Status: ADM SHYLA Study: CTA Neck W/WO Contrast Date of Exam: 04/01/18 Exam# [id number] Ordering Dr: Andreea Rivera MD STUDY: CTA [...] Chacho Babcock MD at 15:54 EDT Tel [phone], Service support , CC: Tyler Rivera MD; Fernando Mock DO Grab Setter: Signed CTA HEAD W/WO Observed: 04/01/2018 Status: F Source: [place] CONTRAST 2:19 PM [facility] REPOSITORY [facility] Imaging Services [address] [place] [address] CTA Head W/WO Contrast MR#: [id number] Acct: [id number] Name: SHAILA STOLL Rep #: [id number] : 1950 M 67 From: Chacho Babcock MD PCP: Fernando Mock, DO Status: ADM SHYLA Study: CTA Head W/WO Contrast Date of Exam: 04/01/18 Exam# [id number] Ordering Dr: Andreea Rivera MD STUDY: CTA [...] There is no demonstrated aneurysm of the [place]. Partial opacification of the inferior aspect of the right maxillary sinus. CT/CTA Head W/WO Contrast IMPRESSION: Normal [place] without a demonstrated aneurysm or hemodynamically significant stenosis. Electronically Signed: Chacho Babcock MD at 15:55 EDT Tel [phone], Service support , CC: Tyler Rivera MD; Fernando Mock DO Grab Setter: Signed ECHOCARDIOGRAM COMPLETE Observed: 04/01/2018 Status: F Source: [place] 1:31 PM [facility] REPOSITORY [facility] Cardiovascular Services [address] [place] [address] Echo Complete 04/01/18 0928 MR#: [id number] Acct: [id number] Name: SHAILA STOLL Rep #: [id number] : 1950 67 From: Kash Rollins MD Attending Dr: Jeffery Dominguez M.D. Status: ADM SHYLA Ordering Dr: Trung Reed MD Date: 04/01/18 Location: [facility] Sex: M C Admitted: 03/31/18 Reason [...] MD Date Dictated: 04/01/18927 Date Transcribed: 04/01/181329 Grab Setter: Signed BASIC METABOLIC Collected: 04/01/2018 Status: F Source: [place] PROFILE (BMP) 5:38 AM [facility] REPOSITORY TYPE CODE TESTS RESULT OUT OF [...] By: #### L500.2500 #### [facility] [address] [place], [address] BRAIN WITHOUT Observed: 04/01/2018 Status: F Source: [place] CONTRAST 12:00 AM [facility] REPOSITORY [facility] Imaging Services [address] [place] [address] Brain without Contrast MR#: [id number] Acct: [id number] Name: JERMANSHAILA Davi Rep #: [id number] : 1950 M 67 From: Lee Chavez MD PCP: Fernando Mock DO Status: ADM SHYLA Study: Brain without Contrast Date of Exam: 04/01/18 Exam# [id number] Ordering Dr: Trung Reed MD ADDENDUM by [...] CC: Fernando Mock DO; Trung Reed MD Grab Setter: Signed EMERGENCY DEPARTMENT Observed: 03/31/2018 Status: F Source: [place] SUMMARY 9:46 PM [facility] REPOSITORY [facility] Medical Records Department [address] [place] [address] Emergency Department Summary 03/31/18 1537 MR#: [id number] Acct: [id number] Name: SHAILA STOLL Rep #: [id number] : 1950 67 From: Hanna Vega MD [...] PE, TIA This note was generated with [employer] dictation software. It may contain incorrect words, [...] your Primary Care Provider. Call [facility] ([phone]) or report to the closest Emergency Room. Call 911 if necessary. 03/31/182145 <Electronically signed by Hanna Vega MD> Date Hanna Vega MD Cosigner Signature (If Indicated): Date CC: Fernando Mock DO TROPONIN-I Collected: 03/31/2018 Status: F Source: [place] 9:22 PM [facility] REPOSITORY Order Comment: 'TROP' Serial specimen #1, #2 or #3: 3 TYPE CODE TESTS RESULT OUT OF RANGE REFERENCE UNITS LAB L501.4010 <0.045 ng/mL High 0.427 TROPONIN-I Result Comment: TROPONIN-I EXPECTED VALUES <0.045 Negative 0.045 - 0.590 Consistent with Cardiac Damage > OR = 0.600 Critical Value Not every elevated troponin is indicative of NC. These values should be used with clinical judgement in examining the patient's clinical picture for diagnosis. To establish a diagnosis of NC versus myocardial injury, there must be a demonstrated rise and/or fall in the troponin values, in addition to ischemic symptoms, EKG changes, new regional wall motion abnormality, and/or angiographical evidence. PLEASE NOTE: REFERENCE RANGES EDITED 17 Performed By: #### L501.4010 #### [facility] [address] [place], [address] LIPID PROFILE Collected: 03/31/2018 Status: F Source: [place] 6:50 PM [facility] REPOSITORY Order Comment: 'TROP' Serial specimen #1, [...] #### L500.4100, L501.4010 #### [facility] [address] [place], [address] TROPONIN-I Collected: 03/31/2018 Status: F Source: [place] 6:50 PM [facility] REPOSITORY Order Comment: 'TROP' Serial specimen #1, #2 or #3: 2 TYPE CODE TESTS RESULT OUT OF RANGE REFERENCE UNITS LAB L501.4010 <0.045 ng/mL High 0.436 TROPONIN-I Result Comment: TROPONIN-I EXPECTED VALUES <0.045 Negative 0.045 - 0.590 Consistent with Cardiac Damage > OR = 0.600 Critical Value Not every elevated troponin is indicative of NC. These values should be used with clinical judgement in examining the patient's clinical picture for diagnosis. To establish a diagnosis of NC versus myocardial injury, there must be a demonstrated rise and/or fall in the troponin values, in addition to ischemic symptoms, EKG changes, new regional wall motion abnormality, and/or angiographical evidence. PLEASE NOTE: REFERENCE RANGES EDITED 18 Performed By: #### L500.4100, L501.4010 #### [facility] [address] [place], [address] HISTORY AND PHYSICAL Observed: 03/31/2018 Status: F Source: [place] EXAM 6:28 PM [facility] REPOSITORY [facility] Medical Records Department [address] [place] [address] History and Physical 03/31/18 1731 MR#: [id number] Acct: [id number] Name: SHAILA STOLL Rep #: [id number] : 1950 67 From: Nakul MORALES PCP: Fernando Mock, DO Status: ADM SHYLA Y Location: [place] [address]1 <Nakul Huston - Last Filed: 03/31/18 17:45> [...] left lower lobe lung (Chronic) [facility] 07/03/17 Medical History: Medical History (Last Reviewed 03/16/18 @ 11:12 by Zenobia Hillman) Viral pharyngitis (Acute) J02.9 Nasopharyngitis (Acute) J00 Limb weakness (Acute) R29.898 unusual tierdness (Acute) Sinusitis (Acute) J32.9 SOB (shortness of breath) (Acute) R06.02 Dyspnea (Acute) R06.00 Adenocarcinoma of lung (Chronic) C34.90 Hyperlipidemia (Chronic) E78.5 Hypertension (Chronic) I10 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) [facility] 07/03/17 LYMPH NODE REMOVAL-CHEST (Acute) [facility] 07/03/17 BLOOD CLOT LUNGS Deep vein blood [...] - - no difficulty with pronator drift, 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, upper/lower ext strength, point to point, [...] left lower lobe lung (Chronic) [facility] 07/03/17 LYMPH NODE REMOVAL-CHEST (Acute) [facility] 07/03/17 BLOOD CLOT LUNGS Deep vein blood [...] Eliquis Code Visit Inpatient E AND M: 32950 Init Hosp L3 03/31/181747 <Electronically signed by Nakul MORALES> Date Nakul MORALES 03/31/181827<Electronically signed by Trung Reed MD> Cosigner Signature: Date (if applicable) Trung Reed MD CC: CARMEN Huston; Fernando Mock DO; Trung Reed MD Signed BRAIN/HEAD WITHOUT Observed: 03/31/2018 Status: F Source: [place] CONTRAST 3:15 PM [facility] REPOSITORY [facility] Imaging Services [address] [place] [address] Brain/Head without Contrast MR#: [id number] Acct: [id number] Name: SHAILA STOLL Rep #: [id number] : 1950 M 67 From: Chacho Babcock MD PCP: Fernando Mock DO Status: REG ER Study: Brain/Head without Contrast Date of Exam: 03/31/18 Exam# [id number] Ordering Dr: Hanna Vega MD STUDY: CT [...] Chacho Babcock MD at 16:02 EDT Tel [phone], Service support , CC: Hanna Vega MD; Fernando Mock DO Grab Setter: Signed CTA CHEST W/WO Observed: 03/31/2018 Status: F Source: [place] CONTRAST 3:15 PM [facility] REPOSITORY [facility] Imaging Services [address] [place] [address] CTA Chest W/WO Contrast MR#: [id number] Acct: [id number] Name: SHAILA STOLL Rep #: [id number] : 1950 67 From: Jonathan Prasad MD PCP: Fernando Mock DO Status: REG ER Study: CTA Chest W/WO Contrast Date of Exam: 03/31/18 Exam# [id number] Ordering Dr: Hanna Vega MD STUDY: CTA [...] CC: Hanna Vega MD; Fernando Mock DO Grab Setter: Signed BASIC METABOLIC Collected: 03/31/2018 Status: F Source: [place] PROFILE (BMP) 3:05 PM [facility] REPOSITORY TYPE CODE TESTS RESULT OUT OF [...] #### L500.2500, L501.4010 #### [facility] [address] [place], [place], [address] TROPONIN-I Collected: 03/31/2018 Status: F Source: [place] 3:05 PM [facility] REPOSITORY TYPE CODE TESTS RESULT OUT OF RANGE REFERENCE UNITS LAB L501.4010 <0.045 ng/mL High 0.365 TROPONIN-I Result Comment: TROPONIN-I EXPECTED VALUES <0.045 Negative 0.045 - 0.590 Consistent with Cardiac Damage > OR = 0.600 Critical Value Not every elevated troponin is indicative of NC. These values should be used with clinical judgement in examining the patient's clinical picture for diagnosis. To establish a diagnosis of NC versus myocardial injury, there must be a demonstrated rise and/or fall in the troponin values, in addition to ischemic symptoms, EKG changes, new regional wall motion abnormality, and/or angiographical evidence. PLEASE NOTE: REFERENCE RANGES EDITED 17 Performed By: #### L500.2500, L501.4010 #### [facility] [address] [place], [address] CBC W/DIFF, AUTOMATED Collected: 03/31/2018 Status: F Source: [place] 3:05 PM [facility] REPOSITORY TYPE CODE TESTS RESULT OUT OF [...] By: #### L100.0100 #### [facility] [place], [address] BEDSIDE GLUCOSE Collected: 03/31/2018 Status: F Source: [place] 3:03 PM [facility] REPOSITORY TYPE CODE TESTS RESULT OUT OF REFERENCE UNITS RANGE LAB L501.080 70-110 mg/dL High BEDSIDE GLU 113 Result Comment: MANAGEMENT OF PATIENT CARE PER NURSING PROTOCOL Performed By: #### L501.080 #### [facility] Point of Care [address] [place] [address] ONCOLOGY VISIT REPORT Observed: 03/16/2018 Status: F Source: [place] 1:03 PM [facility] REPOSITORY [facility] [address] [place] [address] OFFICE VISIT Date of Service: 03/16/18 1124 MR#: [id number] Acct: [id number] Name: SHAILA STOLL Rep #: [id number] : 1950 From: Dago Leger MD Age/Sex: [...] underwent left lower lobe sleeve lobectomy at [facility] by Dr. Alfonso. Final pathology revealed a [...] lower lobectomy and lymph node dissection at [facility] July 03, 2017 with R0 resection. Pathologic [...] CREATININE FINGERSTICK Collected: 03/09/2018 Status: F Source: [place] 1:01 PM [facility] REPOSITORY TYPE CODE TESTS RESULT OUT OF RANGE REFERENCE UNITS LAB L9100.0210 0.70-1.30 mg/dL Normal CREATININE WB 0.9 LAB L9100.0220 >60 mL/min EGFR WB Normal > 60.0000 Performed By: #### L9100.0200 #### [facility] Point of Care [address] [facility] [place] [address] CHEST WITH CONTRAST Observed: 03/09/2018 Status: F Source: [place] 12:55 PM [facility] REPOSITORY [facility] Imaging Services [address] [place] [address] Chest WITH Contrast MR#: [id number] Acct: [id number] Name: SHAILA STOLL Rep #: [id number] : 1950 M 67 From: Lauro Wright MD PCP: Fernando Mock DO Status: REG CLI Study: Chest WITH Contrast Date of Exam: 03/09/18 Exam# [id number] Ordering Dr: Dago Leger MD STUDY: CT [...] CC: Fernando Mock DO; Dago Leger MD Grab Setter: Signed ABDOMEN/PELVIS WITH Observed: 03/09/2018 Status: F Source: [place] CONTRAST 12:55 PM [facility] REPOSITORY [facility] Imaging Services [address] [place] [address] Abdomen/Pelvis WITH Contrast MR#: [id number] Acct: [id number] Name: SHAILA STOLL Rep #: [id number] : 1950 M 67 From: Lauro Wright MD PCP: Fernando Mock DO Status: REG CLI Study: Abdomen/Pelvis WITH Contrast Date of Exam: 03/09/18 Exam# [id number] Ordering Dr: Dago Leger MD STUDY: CT [...] CC: Fernando Mock DO; Dago Leger MD Grab Setter: Signed CBC W/DIFF, AUTOMATED Collected: 03/09/2018 Status: F Source: [place] 11:31 AM [facility] REPOSITORY Order Comment: Reason for Laboratory [...] L100.0100, L500.4050, L501.9940 #### [facility] [address] [place], [place], [address] COMPREHENSIVE METABOLIC Collected: 03/09/2018 Status: F Source: [facility] 11:31 AM [facility] REPOSITORY Order Comment: Reason for Laboratory [...] L100.0100, L500.4050, L501.9940 #### [facility] [address] [place], [address] PSA,TOTAL- DIAGNOSTIC Collected: 03/09/2018 Status: F Source: [place] 11:31 AM [facility] REPOSITORY Order Comment: Reason for Laboratory Test . TYPE CODE TESTS RESULT OUT OF RANGE REFERENCE UNITS LAB L501.9940 0.0-4.0 ng/mL PSA, Normal DIAGNOSTIC < 0.01 Result Comment: This test was performed using the TPSA assay method for the [employer] chemistry system. Values obtained with different assay methods cannot be used interchangably. When changing PSA assays in the course of monitoring a patient, additional sequential testing should be carried out to confirm baseline values. Performed By: #### L100.0100, L500.4050, L501.9940 #### [facility] [address] [place], [address] PULMONARY VISIT REPORT Observed: 02/18/2018 Status: F Source: [place] 10:16 AM [facility] REPOSITORY [facility] [address] [place] [address] OFFICE VISIT Date of Service: 02/18/18 MR#: [id number] Acct: [id number] Name: SHAILA STOLL Rep #: [id number] : 1950 Provider: Tavon Mullen MD Age/Sex: 67/M Location[place] [facility] Status: Signed Assessment AND Plan Problems 1. [...] Orders: Plan Detail Follow Up 6 Months ([facility]) HPI 3 M FU: Chief Complaint: [...] DAILY@0800 90 Days #90 tab 01/14/18 [Rx] [facility] Medical History Viral pharyngitis (Acute) Nasopharyngitis (Acute) [...] 02/08/2018 Status: F Source: [place] 10:17 AM [facility] REPOSITORY [facility] Pulmonary Services/Neurology [address] [place] [address] MR#: [id number] Acct: [id number] Name: SHAILA STOLL Rep #: [id number] : 1950 67 From: David Mock DO Referring Dr: Tavon Mullen MD Date: Ordering Dr: Sex: M C Location: PSN PSN 6 Minute Walk Test - 6 Minute Walk Test 6 Minute Walk Test: 6 Minute Walk Test PSN:6-Minute Walk Test Start: 02/05/18 10:33 Freq: Status: Active Protocol: RESP.6MINW Document 02/05/18 09:00 [facility] (Rec: 02/05/18 10:38 [facility] [id number]) 6 Minute Walk Test Date Performed 02/05/18 [...] Dictated: 02/08/18 1016 Date Transcribed: 02/08/18 1016 Grab Setter: David Mock DO Signed PULMONARY FUNCTION Observed: 02/04/2018 Status: F Source: [place] TEST 11:40 AM [facility] REPOSITORY [facility] Pulmonary Services/Neurology [address] [address] MR#: [id number] Acct: [id number] Name: SHAILA STOLL Rep #: [id number] : 1950 67 From: David Mock DO Referring Dr: Tavon Mullen MD Status: REG CLI Ordering Dr: Date: Location: [facility] Sex: M C INTRODUCTION: The patient is [...] Dictated: 02/04/18 1137 Date Transcribed: 02/04/18 1137 Grab Setter: JOSI Signed ONCOLOGY VISIT REPORT Observed: 01/14/2018 Status: F Source: [place] 2:06 PM [facility] REPOSITORY [facility] [address] [place] [address] OFFICE VISIT Date of Service: 01/14/18 1019 MR#: [id number] Acct: [id number] Name: SHAILA STOLL Rep #: [id number] : 1950 From: Corina VALLES Age/Sex: 67/M [...] lower lobectomy and lymph node dissection at [facility] July 03, 2017 with R0 resection. Pathologic stage IIB(T2b, N1, M0). Completed adjuvant chemotherapy with carboplatin Alimta for 4 cycles December 2017. Reviewed treatment summary and survivorship care plan documentation. Copies of which will be provided to the patient and all members of his health care team. Engaged in lengthy conversation regarding potential half-way/late side effects associated with chemotherapy exposure, recommendations [...] Leger as previously planned. Corina Holbrook, MSN, MEDICAL ORDERLY-C, AOCNP Medications: Prescriptions This Visit Medication Instructions [...] Status: F Source: [place] SUMMARY 11:24 AM [facility] REPOSITORY [facility] [place] [address] End of Treatment Summary Date of Service: 01/13/18 1619 MR#: [id number] Acct: [id number] Name: SHAILA STOLL Rep #: [id number] : 1950 From: Corina Yusef AUTOMOTIVE TITLE CLERK-C Age/Sex: 67/M Location: [facility] Status: Signed General Information Primary Care Provider:: Fernando Mock Medical Oncologist:: Dago eLger Other Providers:: Thoracic surgeon- Dr. Katlyn Alfonso. Insurance Commissioner- Dr. Mullen Treatment Summary Problem List: All [...] PSA,TOTAL- DIAGNOSTIC Collected: 01/14/2018 Status: F Source: [place] 10:05 AM [facility] REPOSITORY TYPE CODE TESTS RESULT OUT OF RANGE REFERENCE UNITS LAB L501.9940 0.0-4.0 ng/mL PSA, Normal DIAGNOSTIC < 0.01 Result Comment: This test was performed using the TPSA assay method for the [employer] chemistry system. Values obtained with different assay methods cannot be used interchangably. When changing PSA assays in the course of monitoring a patient, additional sequential testing should be carried out to confirm baseline values. Performed By: #### L501.9940 #### [facility] [address] [place], [place], [address] ONCOLOGY VISIT REPORT Observed: 12/15/2017 Status: F Source: [place] 9:36 AM [facility] REPOSITORY [facility] [place] [address] OFFICE VISIT Date of Service: 12/15/17 0845 MR#: [id number] Acct: [id number] Name: SHAILA STOLL Rep #: [id number] : 1950 From: Dago Leger MD Age/Sex: [...] underwent left lower lobe sleeve lobectomy at [facility] by Dr. Alfonso. Final pathology revealed a [...] lower lobectomy and lymph node dissection at [facility] July 03, 2017 with R0 resection. Pathologic [...] 12/15/2017 Status: F Source: [place] 8:34 AM [facility] REPOSITORY TYPE CODE TESTS RESULT OUT OF [...] #### L100.0100, L500.4050 #### [facility] [address] [place], [place], [address] COMPREHENSIVE METABOLIC Collected: 12/15/2017 Status: F Source: [facility] 8:34 AM [facility] REPOSITORY TYPE CODE TESTS RESULT OUT OF [...] #### L100.0100, L500.4050 #### [facility] [address] [place], [address] PULMONARY VISIT REPORT Observed: 11/25/2017 Status: F Source: [place] 5:08 PM [facility] REPOSITORY [facility] [address] [place] [address] OFFICE VISIT Date of Service: 11/25/17 MR#: [id number] Acct: [id number] Name: SHAILA STOLL Rep #: [id number] : 1950 Provider: Tavon Mullen MD Age/Sex: 67/M Location: [facility] Status: Signed Assessment AND Plan 1. Adenocarcinoma [...] therapy. Plan Detail Follow Up 3 Months ([facility]) HPI 3 M FU: Chief [...] 11/24/2017 Status: F Source: [place] 10:08 AM [facility] REPOSITORY [facility] [address] [place] [address] [place] [address] OFFICE VISIT Date of Service: 11/24/17 0942 MR#: [id number] Acct: [id number] Name: SHAILA STOLL Rep #: [id number] : 1950 From: Dago Leger MD Age/Sex: [...] radical prostatectomy in October 2014 for a [place] score 9 adenocarcinoma involving about 80% of [...] underwent left lower lobe sleeve lobectomy at [facility] by Dr. Alfonso. Final pathology revealed a [...] lower lobectomy and lymph node dissection at [facility] July 03, 2017 with R0 resection. Pathologic [...] W/DIFF, AUTOMATED Collected: 11/24/2017 Status: C Source: [place] 9:33 AM [facility] REPOSITORY TYPE CODE TESTS RESULT OUT OF [...] By: #### L100.0100 #### [facility] [place], [address] COMPREHENSIVE METABOLIC Collected: 11/24/2017 Status: F Source: [facility] 9:33 AM [facility] REPOSITORY TYPE CODE TESTS RESULT OUT OF [...] By: #### L500.4050 #### [facility] [address] [place], [place], [address] CBC W/DIFF, AUTOMATED Collected: 11/10/2017 Status: F Source: [place] 9:34 AM [facility] REPOSITORY Order Comment: Reason for Laboratory [...] By: #### L100.0100 #### [facility] [address] [facility] [place], [place], [address] ONCOLOGY VISIT REPORT Observed: 11/03/2017 Status: F Source: [place] 9:55 AM [facility] REPOSITORY [facility] [address] [place] [address] OFFICE VISIT Date of Service: 11/03/17 0950 MR#: [id number] Acct: [id number] Name: SHAILA STOLL Rep #: [id number] : 1950 From: Dago Leger MD Age/Sex: [...] radical prostatectomy in October 2014 for a [place] score 9 adenocarcinoma involving about 80% of [...] underwent left lower lobe sleeve lobectomy at [facility] by Dr. Alfonso. Final pathology revealed a [...] lower lobectomy and lymph node dissection at [facility] July 03, 2017 with R0 resection. Pathologic [...] Provider: Fernando Mock MD Referring Provider: 11/03/17 0927 <Electronically signed by Dago Leger MD> Date Dago Dennis Signature: Date (if applicable) CC: CBC W/DIFF, AUTOMATED Collected: 11/03/2017 Status: F Source: [place] 8:39 AM [facility] REPOSITORY TYPE CODE TESTS RESULT OUT OF [...] #### L100.0100, L500.4050 #### [facility] [address] [place], [address] COMPREHENSIVE METABOLIC Collected: 11/03/2017 Status: F Source: [facility] 8:38 AM [facility] REPOSITORY TYPE CODE TESTS RESULT OUT OF [...] #### L100.0100, L500.4050 #### [facility] [address] [place], [address] PSA,TOTAL- DIAGNOSTIC Collected: 10/13/2017 Status: F Source: [place] 11:31 AM [facility] REPOSITORY Order Comment: Reason for Laboratory Test PRE-CHEMO/ROUTINE Reason for Laboratory Test PRE-CHEMO TYPE CODE TESTS RESULT OUT OF RANGE REFERENCE UNITS LAB L501.9940 0.0-4.0 ng/mL PSA, Normal DIAGNOSTIC < 0.01 Result Comment: This test was performed using the TPSA assay method for the [employer] chemistry system. Values obtained with different assay methods cannot be used interchangably. When changing PSA assays in the course of monitoring a patient, additional sequential testing should be carried out to confirm baseline values. Performed By: #### L501.9940, L503.6030, L503.6550 #### [facility] [address] [place], [place], [address] IRON+IRON BINDING Collected: 10/13/2017 Status: F Source: [facility] 11:31 AM [facility] REPOSITORY Order Comment: Reason for Laboratory Test PRE-CHEMO/ROUTINE Reason for Laboratory Test PRE-CHEMO TYPE CODE TESTS RESULT OUT OF RANGE REFERENCE UNITS LAB L503.6075 250-450 ug/dL TIBC Normal 310 LAB L503.6150 65-175 ug/dL IRON Normal 135 LAB L503.6250 15.0-55.0 % IRON Normal SATURATION 43.5 Performed By: #### L501.9940, L503.6030, L503.6550 #### [facility] [address] [place], [address] FERRITIN Collected: 10/13/2017 Status: F Source: [place] 11:31 AM [facility] REPOSITORY Order Comment: Reason for Laboratory Test PRE-CHEMO/ROUTINE Reason for Laboratory Test PRE-CHEMO TYPE CODE TESTS RESULT OUT OF REFERENCE UNITS RANGE LAB L503.6550 26-388 ng/mL High FERRITIN 686 Performed By: #### L501.9940, L503.6030, L503.6550 #### [facility] [address] [place], [address] ONCOLOGY VISIT REPORT Observed: 10/13/2017 Status: F Source: [place] 11:15 AM [facility] REPOSITORY [facility] [address] [place] [address] OFFICE VISIT Date of Service: 10/13/17 1111 MR#: [id number] Acct: [id number] Name: SHAILA STOLL Rep #: [id number] : 1950 From: Dago Leger MD Age/Sex: [...] radical prostatectomy in October 2014 for a [place] score 9 adenocarcinoma involving about 80% of [...] underwent left lower lobe sleeve lobectomy at [facility] by Dr. Alfonso. Final pathology revealed a [...] lower lobectomy and lymph node dissection at [facility] July 03, 2017 with R0 resection. Pathologic [...] 10/13/2017 Status: F Source: [place] 10:01 AM [facility] REPOSITORY TYPE CODE TESTS RESULT OUT OF [...] By: #### L100.0100 #### [facility] [address] [place], [place], [address] COMPREHENSIVE METABOLIC Collected: 10/13/2017 Status: F Source: [facility] 10:01 AM [facility] REPOSITORY TYPE CODE TESTS RESULT OUT OF [...] By: #### L500.4050 #### [facility] [address] [facility], [address] 12 LEAD ELECTROCARDIOGRAM Observed: 10/06/2017 Status: F Source: [place] 4:22 PM [facility] REPOSITORY [facility] Cardiovascular Services [address] [place] [address] 12 Lead EKG 10/02/172014 MR#: [id number] Acct: [id number] Name: JERMANSHAILA Davi Rep #: [id number] : 1950 66 From: Rory Wall MD Attending Dr: Skye Haro Status: DIS IN Ordering Dr: Danyel Cai MD Date: 10/02/17 Location: [facility] Sex: M C Admitted: 10/02/17 Test Reason : Blood Pressure : / mmHG Vent. Rate : 098 BPM Atrial Rate : 098 BPM P-R Int : 120 ms QRS Dur : 082 ms QT Int : 360 ms P-R-T Axes : 054 042 035 degrees QTc Int : 459 ms Normal sinus rhythm Normal ECG Confirmed by RORY WALL MD ([id number]), publishing editor SUMA VANEGAS ([id number]) on 10/06/2017 4:22:26 PM Referred By: Tavon Mullen Confirmed By:RORY WALL MD 10/06/17 1622 Date Rory Wall MD CC: Danyel Cai MD; Katlyn Mullins DO Signed ONCOLOGY VISIT REPORT Observed: 10/06/2017 Status: F Source: [place] 12:01 PM [facility] REPOSITORY [facility] [address] [place] [address] OFFICE VISIT Date of Service: 10/06/17 1056 MR#: [id number] Acct: [id number] Name: SHAILA STOLL Rep #: [id number] : 1950 From: Dago Leger MD Age/Sex: [...] radical prostatectomy in October 2014 for a [place] score 9 adenocarcinoma involving about 80% of [...] underwent left lower lobe sleeve lobectomy at [facility] by Dr. Alfonso. Final pathology revealed a [...] lower lobectomy and lymph node dissection at [facility] July 03, 2017 with R0 resection. Pathologic [...] DUPLEX LOWER Observed: 10/05/2017 Status: F Source: [place] EXTREMITY 6:04 AM [facility] REPOSITORY [facility] Cardiovascular Services [address] [place] [address] Venous Duplex - Michele Extrem 10/03/17 1107 MR#: [id number] Acct: [id number] Name: SHAILA STOLL Rep #: [id number] : 1950 66 From: Katlyn Luna MD Attending Dr: Skye Haro Status: DIS IN Ordering Dr: Skye Haro Date: 10/03/17 Location: [facility] Sex: M C Admitted: 10/02/17 Reason [...] Katlyn Luna MD CC: Skye Haro; Katlyn Mullnis DO Date Dictated: 10/03/17 1107 Date Transcribed: 10/05/17 0604 Grab Setter: Signed DISCHARGE SUMMARY Observed: 10/04/2017 Status: F Source: [place] 10:45 AM [facility] REPOSITORY [facility] Medical Records Department [address] [place] [address] Discharge Summary 10/04/17 1037 MR#: [id number] Acct: [id number] Name: SHAILA STOLL Rep #: [id number] : 1950 66 From: Skye Haro PCP: Katlyn Mullins DO Status: ADM IN Y Location: [place] [address] Discharge Date and Diagnosis - Problem List [...] of left lower lobe lung (Chronic) [facility] 07/03/17 Prostate cancer (Chronic) surgery , [...] LLL lobectomy and lymph node dissection [facility] July 03, 2017 with R0 resection who presented to the [facility] ED on 10/03/17 with dyspnea x 2 [...] contacted their office and patient evaluated per AUTOMOTIVE TITLE CLERK with plan for follow-up as previously arranged. [...] When: Follow-up within 1-2 weeks, may see AUTOMOTIVE TITLE CLERK to discuss admission. Please Follow Up With: [...] eliquis. Code Visit Inpatient E AND M: [id number] Disch Hosp 10/04/17 1045 <Electronically signed by Skye Haro > Date Skye Haro Cosigner Signature (if applicable): Date CC: Skye Haro; Katlyn Mullins DO Signed DISCHARGE INSTRUCTION Observed: 10/04/2017 Status: F Source: [place] 10:36 AM [facility] REPOSITORY [facility] Medical Records Department [address] [place] [address] Instructions for Home/Discharge Instructions 10/04/17 1024 MR#: [id number] Acct: [id number] Name: SHAILA STOLL Rep #: [id number] : 1950 66 From: Skye Haro PCP: [...] When: Follow-up within 1-2 weeks, may see AUTOMOTIVE TITLE CLERK to discuss admission. Please Follow Up With: Fritz Valencia MD When: Contact office to discuss re-arranging port placement date. Proposed Discharge Date: 10/04/17 10/04/17 1036 <Electronically signed by Skye Haro > Date Skye Haro CC: Dago Leger MD; Katlyn Mullins DO CONSULTATION Observed: 10/04/2017 Status: F Source: [place] 8:53 AM [facility] REPOSITORY [facility] Medical Records Department [address] [place] [address] Consultation 10/04/17 0733 MR#: [id number] Acct: [id number] Name: SHAILA STOLL Rep #: [id number] : 1950 66 From: Corina VALLES PCP: Katlyn Mullins DO Status: ADM IN Y [id number] Referring Physician: Skye Haro Date of [...] underwent left lower lobe sleeve lobectomy at [facility] by Dr. Alfonso. Final pathology revealed a [...] by acute dyspnea which prompted presentation to [facility] 10/03/17. Found to have bilateral PEs and bilateral LE DVTs. Now on Lovenox. His past medical history is notable for prostate cancer presenting with an elevated PSA of 42. Patient is status post radical prostatectomy in October 2014 for a [place] score 9 adenocarcinoma involving about 80% of [...] 10/03/17 00:07 ARN (Rec: 10/03/17 00:29 ARN [id number]) BMI Required to complete PMH What is [...] post LLL lobectomy and lymph node dissection [facility] July 03, 2017 with R0 resection who presents to the [facility] ED on 10/03/17 with dyspnea x 2 weeks. 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 Will evaluate in clinic [...] management to primary team Corina Holbrook, MSN, MEDICAL ORDERLY-C, AOCNP Medications: Prescriptions This Visit Medication Instructions [...] 10/04/2017 Status: F Source: [place] 5:47 AM [facility] REPOSITORY TYPE CODE TESTS RESULT OUT OF [...] By: #### L100.0100 #### [facility] [address] [place] [address]. [place], [address] BASIC METABOLIC Collected: 10/04/2017 Status: F Source: [place] PROFILE (BMP) 5:47 AM [facility] REPOSITORY TYPE CODE TESTS RESULT OUT OF [...] By: #### L500.2500 #### [facility] [address] [facility] [place], [address] M R STAPH AUREUS Collected: 10/03/2017 Status: F Source: [place] DNA BY PCR 9:50 PM [facility] REPOSITORY TYPE CODE TESTS RESULT OUT OF RANGE REFERENCE UNITS LAB L8200.1100 Negative Normal MRSA Negative RESULT Performed By: #### L8200.1000 #### [facility] [place], [address] Observed: 10/03/2017 Status: F Source: [place] LEGIONELLA ANTIGEN 10:35 AM [facility] URINE REPOSITORY Legionella, UR Legionella Antigen result interpretation: Negative Presumptive negative for Legionella pneumophila serogroup 1 antigen in urine, suggesting no recent or current infection. Legionella Ag, Urine Negative (See interpretation below) Performed By: #### M300.4500 #### [facility] [place], [address] STREP Observed: 10/03/2017 Status: F Source: [place] PNEUMONIAE ANTIG(UR,CSF) 10:35 AM [facility] REPOSITORY S pneumo Ag URINE INTERPRETATION Negative Urine Presumptive negative for pneumococcal pneumonia, suggesting no current or recent pneumococcal infection. Infection due to S pneumoniae cannot be ruled out since the antigen present in the sample may be below the detection limit of the test. Strep pneumo Test Negative URINE (See interpretation below) Performed By: #### M300.4600 #### [facility] [address] [place], [address] ECHOCARDIOGRAM COMPLETE Observed: 10/03/2017 Status: F Source: [place] 10:22 AM [facility] REPOSITORY [facility] Cardiovascular Services [address] [place] [address] Echo Complete 10/03/17 0753 MR#: [id number] Acct: [id number] Name: SHAILA STOLL Rep #: [id number] : 1950 66 From: Trish Yates MD Attending Dr: Skye Haro Status: ADM IN Ordering Dr: Braulio De La Rosa MD Date: 10/03/17 Location: [facility] Sex: M C Admitted: 10/02/17 Reason [...] Dictated: 10/03/17 0753 Date Transcribed: 10/03/17 1022 Grab Setter: Signed CBC-COMPLETE BLOOD CNT Collected: 10/03/2017 Status: F Source: [place] NO DIFF 4:26 AM [facility] REPOSITORY TYPE CODE TESTS RESULT OUT OF [...] By: #### L100.0500 #### [facility] [address] [place], [place], [address] PARTIAL THROMBOPLAST Collected: 10/03/2017 Status: F Source: [place] TIME 4:26 AM [facility] REPOSITORY TYPE CODE TESTS RESULT OUT OF REFERENCE UNITS RANGE LAB L300.4310 24.1-36.2 Seconds High PTT 63.1 Performed By: #### L300.4310 #### [facility] [address] [facility] [place], [address] BASIC METABOLIC Collected: 10/03/2017 Status: F Source: [place] PROFILE (BMP) 4:26 AM [facility] REPOSITORY TYPE CODE TESTS RESULT OUT OF [...] By: #### L500.2500 #### [facility] [address] [place], [address] PHOSPHORUS Collected: 10/03/2017 Status: F Source: [place] 4:26 AM [facility] REPOSITORY TYPE CODE TESTS RESULT OUT OF RANGE REFERENCE UNITS LAB L501.2300 2.5-4.9 mg/dL Normal PHOS 3.4 Performed By: #### L501.2300, L501.5200 #### [facility] [address] [place], [address] MAGNESIUM Collected: 10/03/2017 Status: F Source: [place] 4:26 AM [facility] REPOSITORY TYPE CODE TESTS RESULT OUT OF RANGE REFERENCE UNITS LAB L501.5200 1.6-2.6 mg/dL Normal MG 2.3 Result Comment: Please note revised Magnesium reference range effective 2017. Performed By: #### L501.2300, L501.5200 #### [facility] [address] [place], [address] Observed: 10/03/2017 Status: F Source: [place] CULTURE, BLOOD (WB) 4:26 AM [facility] REPOSITORY Has pt arrived? Y BC No growth in 5 days. Performed By: #### M200.1000 #### [facility] [address] [place], [address] HISTORY AND PHYSICAL Observed: 10/03/2017 Status: F Source: [place] EXAM 3:44 AM [facility] REPOSITORY [facility] Medical Records Department [address] [place] [address] History and Physical 10/02/17 2327 MR#: [id number] Acct: [id number] Name: SHAILA STOLL Davi Rep #: [id number] : 1950 66 From: Braulio De La Rosa MD PCP: Katlyn Mullins DO Status: ADM IN Y Location: [place] [address] Problem List (1) Pulmonary embolism Status: Acute [...] lower lobectomy and lymph node dissection at [facility] July 03, 2017 with R0 resection admitted [...] 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) [facility] 07/03/17 Prostate cancer (Chronic) surgery [...] lower lobectomy and lymph node dissection at [facility] July 03, 2017 with R0 resection admitted for SOB secondary to bilateral PE. 1) Acute bilateral PE: Will start heparin gtt. Will get ECHO and doppler in AM. Will get trops. No e/o heart strain on EKG. C/w oxygen. 2) Non-small adenocarcinoma cell lung cancer, stage IIB(T2b, N1, M0) status post left lower lobectomy and lymph node dissection at [facility] July 03, 2017 with R0 resection: Pt [...] EMERGENCY DEPARTMENT Observed: 10/02/2017 Status: F Source: [place] SUMMARY 10:48 PM [facility] REPOSITORY [facility] Medical Records Department [address] [place] [address] Emergency Department Summary 10/02/172006 MR#: [id number] Acct: [id number] Name: SHAILA STOLL Rep #: [id number] : 1950 66 From: Danyel Cai MD [...] pulmonary emboli This note was generated with [employer] dictation software. It may contain incorrect words, [...] your Primary Care Provider. Call [facility] ([phone]) or report to the closest Emergency Room. Call 911 if necessary. 10/02/17 0714 <Electronically signed by Danyel Cai MD> Date Danyel Cai MD Cosigner Signature (If Indicated): Date CC: Katlyn Mullins DO CBC W/DIFF, AUTOMATED Collected: 10/02/2017 Status: F Source: [place] 8:10 PM [facility] REPOSITORY TYPE CODE TESTS RESULT OUT OF [...] By: #### L100.0100 #### [facility] [address] [facility] [place], [place], [address] PROTHROMBIN TIME W/INR Collected: 10/02/2017 Status: F Source: [place] 8:10 PM [facility] REPOSITORY TYPE CODE TESTS RESULT OUT OF RANGE REFERENCE UNITS LAB L300.4150 11.7-14.9 SECONDS High PROTIME 15.4 LAB L300.4200 Normal INR 1.2 Performed By: #### L300.3900, L300.4310 #### [facility] [address] [place], [address] PARTIAL THROMBOPLAST Collected: 10/02/2017 Status: F Source: [place] TIME 8:10 PM [facility] REPOSITORY TYPE CODE TESTS RESULT OUT OF RANGE REFERENCE UNITS LAB L300.4310 24.1-36.2 Seconds Normal PTT 32.7 Performed By: #### L300.3900, L300.4310 #### [facility] [address] [place], [address] BASIC METABOLIC Collected: 10/02/2017 Status: F Source: [place] PROFILE (BMP) 8:10 PM [facility] REPOSITORY Order Comment: 'TROP' Serial specimen #1, [...] #### L500.2500, L501.4010 #### [facility] [address] [place], [place], [address] TROPONIN-I Collected: 10/02/2017 Status: F Source: [place] 8:10 PM [facility] REPOSITORY Order Comment: 'TROP' Serial specimen #1, #2, #3, or #4: 1 TYPE CODE TESTS RESULT OUT OF RANGE REFERENCE UNITS LAB L501.4010 <0.06 ng/mL Normal 0.02 TROPONIN-I Result Comment: TROPONIN-I EXPECTED VALUES <0.05 NEGATIVE 0.06 - 0.59 AT RISK OF NC > OR = 0.60 SUGGEST NC Performed By: #### L500.2500, L501.4010 #### [facility] [address] [place], [address] BNP,B-TYPE NATRIURETIC Collected: 10/02/2017 Status: F Source: [place] PEPTIDE 8:10 PM [facility] REPOSITORY TYPE CODE TESTS RESULT OUT OF RANGE REFERENCE UNITS LAB L503.6620 0-100 pg/mL High B-TYPE 114.6 ALYSA PEP Performed By: #### L503.6620 #### [facility] [address] [place], [address] CHEST 1 VIEW Observed: 10/02/2017 Status: F Source: [place] (PORTABLE) 8:07 PM [facility] REPOSITORY [facility] Imaging Services [address] [place] [address] Chest 1 View (Portable) MR#: [id number] Acct: [id number] Name: SHAILA STOLL Rep #: [id number] : 1950 M 66 From: Antonio Hamlin MD PCP: Katlyn Mullins DO Status: REG ER Study: Chest 1 View (Portable) Date of Exam: 10/02/17 Exam# [id number] Ordering Dr: Danyel Cai MD STUDY: X-RAY [...] CC: Danyel Cai MD; Katlyn Mullins DO Grab Setter: Signed CTA CHEST W/WO Observed: 10/02/2017 Status: F Source: [place] CONTRAST 8:07 PM [facility] REPOSITORY [facility] Imaging Services [address] [place] [address] CTA Chest W/WO Contrast MR#: [id number] Acct: [id number] Name: SHAILA STOLL Rep #: [id number] : 1950 M 66 From: Antonio Hamlin MD PCP: Katlyn Mullins DO Status: REG ER Study: CTA Chest W/WO Contrast Date of Exam: 10/02/17 Exam# [id number] Ordering Dr: Danyel Cai MD STUDY: CTA [...] CC: Danyel Cai MD; Katlyn Mullins DO Grab Setter: Signed PULMONARY VISIT REPORT Observed: 09/24/2017 Status: F Source: [place] 3:26 PM [facility] REPOSITORY [facility] [address] [place] [address] OFFICE VISIT Date of Service: 09/24/17 MR#: [id number] Acct: [id number] Name: SHAILA STOLL Rep #: [id number] : 1950 Provider: Miguelina Saenz Age/Sex: 66/M Location: [facility] Status: Signed Assessment AND Plan 1. Shortness [...] Q4H with spacer Follow Up 2 Weeks ([facility]) HPI Shortness of breath: Chief Complaint: cough [...] his weight. He has not tried any ysnn-yqq-vtnztzl medications for this shortness of breath. See [...] VISIT REPORT Observed: 09/21/2017 Status: F Source: [place] 10:00 AM [facility] [address] [place] [address] OFFICE VISIT Date of Service: 09/16/17 MR#: [id number] Acct: [id number] Name: SHAILA STOLL Rep #: [id number] : 1950 Provider: Fritz Valencia MD Age/Sex: 66/M Location: [facility] Status: Signed Intake Vital Signs09/16/17 Height 5 ft 10 in 09/16/17 Weight: 193 lb Intake Visit Reasons: NEEDS PORT Chief Complaint: Chemotherapy Education-Carboplatin/Alimta/Neulasta Quantity Surveyor Required: No Is patient in pain?: No [...] person, oriented to place, oriented to time [facility] Head: normocephalic, atraumatic Ears: external ears [...] 09/15/2017 Status: F Source: [place] 9:39 AM [facility] REPOSITORY TYPE CODE TESTS RESULT OUT OF [...] By: #### L100.0100 #### [facility] [address] [place], [place], [address] COMPREHENSIVE METABOLIC Collected: 09/15/2017 Status: F Source: [place] DUTTON 9:39 AM [facility] REPOSITORY Order Comment: Reason for Laboratory [...] #### L500.4050, L501.9940 #### [facility] [address] [place], [address] PSA,TOTAL- DIAGNOSTIC Collected: 09/15/2017 Status: F Source: [place] 9:39 [facility] Order Comment: Reason for Laboratory Test PRE-CHEMO TYPE CODE TESTS RESULT OUT OF RANGE REFERENCE UNITS LAB L501.9940 0.0-4.0 ng/mL PSA, Normal DIAGNOSTIC < 0.01 Result Comment: This test was performed using the TPSA assay method for the [employer] chemistry system. Values obtained with different assay methods cannot be used interchangably. When changing PSA assays in the course of monitoring a patient, additional sequential testing should be carried out to confirm baseline values. Performed By: #### L500.4050, L501.9940 #### [facility] [address] [place], [address] PULMONARY VISIT REPORT Observed: 09/02/2017 Status: F Source: [place] 9:55 AM [facility] REPOSITORY [facility] [place] [address] [place] [address] OFFICE VISIT Date of Service: 09/02/17 MR#: [id number] Acct: [id number] Name: SHAILA STOLL Rep #: [id number] : 1950 Provider: Tavon Mullen MD Age/Sex: 66/M Location[place] [facility] Status: Signed Assessment AND Plan 1. Adenocarcinoma [...] oncology. Plan Detail Follow Up 3 Months ([facility]) HPI 3 M FU: Chief Complaint: Shortness of breath on exertion Details: Patient is a 66-year-old male, currently in the care of Dr. Mock, who presents for evaluation secondary to shortness of breath. Since last visit, patient has gone to [facility] for a sleeve lobectomy of the left [...] mg PO DAILY 06/02/17 [History Confirmed 08/27/17] [facility] Medical History Viral pharyngitis (Acute) Nasopharyngitis (Acute) [...] 07/03/2018 Drug morphine/F00 MAKES HIS MO Cony [facility] Allergy/4160 0291221(RXNO NAUSEATED AND Hospital 29726(SNOMED RM) SICK Repository CT) ENCOUNTERS ENCOUNTERS ADMIT/DISCHARGE ACCOUNT ADMITTING ENCOUNTER LOCATION SOURCE NUMBER CLASS 07/03/2018/ [id number] [facility], Inpatient Con[place] 8 5 [place] Encounter [facility] ing:PCURoom: Repository [id number]: 1 07/03/2018 [id number] [facility], Ambulatory BMSBuilding:B [place] 9 [place].[facility] Repository 07/03/2018 [id number] [facility], Ambulatory BMSBuilding:B [place] 1 [place] MS.CF.[facility] Repository 07/03/2018 [id number] [facility], Ambulatory BMSBuilding:B [place] 3 [place] [facility] Repository 07/03/2018 [id number] [facility], Ambulatory BMSBuilding:B [place] 5 [place] MS.[facility] Repository 07/03/2018 [id number] [facility], Ambulatory BMSBuilding:B [place] 4 [place].[facility] Repository 07/03/2018 [id number] [facility], Ambulatory BMSBuilding:B [place] 8 [place].[facility] Repository 07/03/2018 [id number] [place], Ambulatory BMSBuilding:B [place] 9 [place].CF.[facility] Repository 07/03/2018 [id number] [place], Ambulatory BMSBuilding:B [place] 8 [place] [facility] Repository 07/03/2018 [id number] [facility], Ambulatory BMSBuilding:B [place] 4 [place] MS.CF.[facility] Repository 07/03/2018 [id number] [facility], Ambulatory BMSBuilding:B [place] 6 [place] [facility] Repository 07/03/2018 [id number] [place], Ambulatory BMSBuilding:B [place] 2 [place] MS.CF.[facility] Repository 07/03/2018 [id number] [facility], Ambulatory BMSBuilding:B [place] 7 [place] [facility] Repository 07/03/2018 [id number] [facility], Ambulatory BMSBuilding:B [place] 0 [place].CF.[facility] Repository 07/03/2018 [id number] Ambulatory BMSBuilding:W [place] 7 [facility] Repository 07/02/2018 [id number] Ambulatory [place] Con[place] 9 [facility] Hospital ing:US Repository 07/01/2018 [id number] Ambulatory [place] 1 [facility] ing:PAVLAB Repository 07/01/2018 [id number] Ambulatory BMSBuilding:B [place] 3 MS.[facility] Repository 07/01/2018/ [id number] Ambulatory BMSBuilding:B [place] 8 1 [facility] Repository 07/01/2018 [id number] Ambulatory [place] 0 [facility] Hospital ing:OMD Repository 06/23/2018 [id number] Ambulatory BMSBuilding:B [place] 9 [facility] Repository 06/22/2018 [id number] Ambulatory BMSBuilding:W [place] 3 [facility] Hospital Repository 06/21/2018 [id number] Ambulatory [place] 7 [facility] Hospital ing:PSN Repository 06/21/2018/ [id number] Ambulatory BMSBuilding:B [place] 8 0 [facility] Repository 06/21/2018 [id number] Ambulatory BMSBuilding:B [place] 0 MS.CF.[facility] Repository 06/18/2018 [id number] Ambulatory BMSBuilding:B [place] 4 MS.[facility] Repository 06/18/2018 [id number] Ambulatory [place] 2 [facility] Hospital ing:CVS Repository 06/15/2018 [id number] Ambulatory BMSBuilding:B [place] 0 [facility] Repository 06/15/2018 [id number] Ambulatory BMSBuilding:B [place] 3 [facility] Repository 06/10/2018 [id number] Ambulatory [place] 4 [facility] Hospital ing:PSN Repository 06/10/2018 [id number] Ambulatory BMSBuilding:W [place] 2 [facility] Repository 06/08/2018 [id number] Ambulatory [place] 9 [facility] Hospital ing:PAVLAB Repository 06/08/2018/ [id number] Ambulatory BMSBuilding:B [place] 8 2 [facility] Repository 05/18/2018 [id number] Ambulatory [place] 3 [facility] Hospital ing:LAB Repository 04/28/2018/ [id number] Ambulatory BMSBuilding:B [place] 8 1 [facility] Repository 04/01/2018/ [id number] Ambulatory BMSBuilding:W [place] 8 9 [facility] Repository 03/31/2018/ [id number] [facility], Ambulatory [place] 8 0 Trung F [facility] Hospital ing:PCURoom: Repository [id number]: 1 03/31/2018 [id number] L[place], Ambulatory BMSBuilding:B [place] 6 Trung F [facility] Repository 03/31/2018 [id number] [place], Ambulatory BMSBuilding:B [place] 6 Trung F [facility] Repository 03/31/2018/ [id number] Ambulatory BMSBuilding:W [place] 8 8 [facility] Hospital Repository 03/16/2018 [id number] Ambulatory BMSBuilding:B [place] 7 MS.[facility] Repository 03/09/2018 [id number] Ambulatory [place] 0 [facility] Hospital ing:CT Repository 02/18/2018/ [id number] Ambulatory BMSBuilding:B [place] 8 4 [facility] Repository 02/08/2018 [id number] Ambulatory BMSBuilding:W [place] 7 [facility] Hospital Repository 02/05/2018 [id number] Ambulatory [place] 6 [facility] Hospital ing:PSN Repository 02/04/2018 [id number] Ambulatory [place] 1 [facility] Hospital ing:PSN Repository 02/04/2018 [id number] Ambulatory BMSBuilding:W [place] 8 [facility] Repository 01/14/2018 [id number] Ambulatory BMSBuilding:B [place] 2 [facility] Repository 01/14/2018 [id number] Ambulatory [place] 7 [facility] Hospital ing:PAVLAB Repository 12/15/2017 [id number] Ambulatory BMSBuilding:B [place] 8 MS.[facility] Repository 11/25/2017/ [id number] Ambulatory BMSBuilding:B [place] 8 4 [facility] Repository 11/24/2017 [id number] Ambulatory BMSBuilding:B [place] 8 [facility] Repository 11/03/2017 [id number] Ambulatory [place] 5 [facility] Hospital ing:SDC Repository 11/03/2017 [id number] Ambulatory BMSBuilding:B [place] 8 MS.[facility] Repository 10/13/2017 [id number] Ambulatory BMSBuilding:B [place] 8 [facility] Repository 10/06/2017 [id number] Ambulatory BMSBuilding:B [place] 6 [facility] Repository 10/02/2017/ [id number] Braulio De La Rosa Inpatient [place] 8 4 [facility] Hospital ing:PCURoom: Repository [id number]: 1 10/02/2017 [id number] Estrella, Braulio Ambulatory BMSBuilding:B [place] 3 [facility] Repository 10/02/2017 [id number] Estrella, Braulio Ambulatory BMSBuilding:B [place] 0 [facility] Repository 10/02/2017 [id number] Estrella, Braulio Ambulatory BMSBuilding:B [place] 9 [facility] Repository 10/02/2017 [id number] Estrella, Braulio Ambulatory BMSBuilding:B [place] 5 [facility] Repository 10/02/2017/ [id number] Ambulatory BMSBuilding:W [place] 8 8 [facility] Repository 10/02/2017/ [id number] Ambulatory BMSBuilding:B [place] 8 3 [facility] Repository 09/24/2017/ [id number] Ambulatory BMSBuilding:B [place] 8 1 [facility] Repository 09/16/2017/ [id number] Ambulatory BMSBuilding:B [place] 8 7 [facility] Repository 09/15/2017 [id number] Ambulatory BMSBuilding:B [place] 4 [facility] Repository 09/02/2017/ [id number] Ambulatory BMSBuilding:B [place] 8 9 [facility] Repository 08/27/2017 [id number] Ambulatory BMS [place] 6 [facility] Repository 08/17/2017 [id number] Ambulatory BMSBuilding:B [place] 4 [facility] Repository PAYERS PAYERS ENCOUNTER GUARANTOR PAYER SUBSCRIBER SOURCE 07/03/2018 SHAILA Tomlinson Primary SHAILA [id number] Insurance:MEDICARE SHAFFERDOB: [facility] [id number] Repository [id number]: (774) [id number] [phone] () Date:2018-07-03 07/03/2018 Secondary SHAILA Donnelly Insurance:MEDICAL SHAFFERDOB: [facility] [id number] Number: Repository [id number] Date:[id number] [address] [place] [id number]: 07/03/2018 Tertiary NOT GIVENUNK [place] Insurance:SELF PAY [facility] Number: Effective Repository Date:2018-07-03 07/03/2018 SHAILA A Primary SHAILA A [place] [id number] Insurance:MEDICARE SHAFFERDOB: Community [place] [facility] [id number] Number: Repository [id number]: 330 [id number] [phone] (HP) Date:2018-07-03 07/03/2018 Secondary SHAILA A [place] Insurance:MEDICAL SHAFFERDOB: [facility] [id number] Number: Repository [id number] Date:[id number] [phone]: 07/03/2018 Tertiary NOT GIVENUNK [place] Insurance:SELF PAY [facility] Number: Effective Repository Date:2018-07-03 07/03/2018 SHAILA A Primary SHAILA A [place] [id number] Insurance:MEDICARE SHAFFERDOB: Community [place] [facility] [id number] [place] [address] Number: Repository [id number]: [phone] [id number] [phone] (HP) Date:2018-07-03 07/03/2018 Secondary SHAILA A [place] Insurance:MEDICAL SHAFFERDOB: [facility] 3262-01-88NWK Hospital Number: Repository [id number] Date:3900-22-86NM[address] [address]JD: 07/03/2018 Tertiary NOT GIVENUNK [place] Insurance:SELF PAY [facility] Number: Effective Repository Date:2018-07-03 07/03/2018 SHAILA A Primary SHAILA A [place] [id number] Insurance:MEDICARE SHAFFERDOB: [facility] [place] [facility] [id number] [place] [address] Number: Repository [id number]: 330 [id number] [phone] (HP) Date:2018-07-03 07/03/2018 Secondary SHAILA A [place] Insurance:MEDICAL SHAFFERDOB: [facility] [id number] Hospital Number: Repository [id number] Date:1611-96-80EH[address] [address]SS: 07/03/2018 Tertiary NOT GIVENUNK [place] Insurance:SELF PAY [facility] Number: Effective Repository Date:2018-07-03 07/03/2018 SHAILA A Primary SHAILA A [place] [id number] Insurance:MEDICARE SHAFFERDOB: [facility] PART A [facility] [id number] Number[place] Repository [address]Nbu: 330 [id number] [phone] (HP) Date:2018-07-03 07/03/2018 Secondary SHAILA A [place] Insurance:MEDICAL SHAFFERDOB: [facility] [id number] Hospital Number: Repository [id number] Date:0726-61-60OD[address] [address]PA: 07/03/2018 Tertiary NOT GIVENUNK [place] Insurance:SELF PAY [facility] Number: Effective Repository Date:2018-07-03 07/03/2018 SHAILA A Primary SHAILA A [place] [id number] Insurance:MEDICARE SHAFFERDOB: [facility] PART A [facility] [id number] Number[place] Repository [id number]: 330 [id number] [phone] (HP) Date:2018-07-03 07/03/2018 Secondary SHAILA A [place] Insurance:MEDICAL SHAFFERDOB: [facility] [id number] Hospital Number: Repository [id number] Date:2092-86-41RK [address] [address]ZF: 07/03/2018 Tertiary NOT GIVENUNK [place] Insurance:SELF PAY [facility] Number: Effective Repository Date:2018-07-03 07/03/2018 SHAILA A Primary SHAILA A [place] [id number] Insurance:MEDICARE SHAFFERDOB: [facility] PART A [facility] [id number] Number: Repository [id number]: 330 [id number] [phone] (HP) Date:2018-07-03 07/03/2018 Secondary [place]AILA A [place] Insurance:MEDICAL SHAFFERDOB: [facility] [id number] Hospital Number: Repository [id number] Date:7448-97-76XR[address] [address]MT: 07/03/2018 Tertiary NOT GIVENUNK [place] Insurance:SELF PAY [facility] Number: Effective Repository Date:2018-07-03 07/03/2018 SHAILA A Primary SHAILA A [place] [id number] Insurance:MEDICARE SHAFFERDOB: [facility] PART A [facility] [id number] [place] [address] Number: Repository [id number]: 330 [id number] [phone] () Date:2018-07-03 07/03/2018 Secondary SHAILA A [place] Insurance:MEDICAL SHAFFERDOB: [facility] [id number] Hospital Number: Repository [id number] Date:8899-49-19CQ[address] [address]MB: 07/03/2018 Tertiary NOT GIVENUNK [place] Insurance:SELF PAY [facility] Number: Effective Repository Date:2018-07-03 07/03/2018 SHAILA A Primary [place]AILA A [place] [id number] Insurance:MEDICARE SHAFFERDOB: [facility] PART A [facility] [id number] [place] Number: Repository [id number]: 330 [id number] [phone] (HP) Date:2018-07-03 07/03/2018 Secondary SHAILA A [place] Insurance:MEDICAL SHAFFERDOB: [facility] [id number] Hospital Number: Repository [id number] Date:9791-93-58CK [facility] [address] [address]XQ: 07/03/2018 Tertiary NOT GIVENUNK [place] Insurance:SELF PAY [facility] Number: Effective Repository Date:2018-07-03 07/03/2018 SHAILA A Primary [place]AILA A [place] [id number] Insurance:MEDICARE SHAFFERDOB: [facility] [place] [facility] [id number] [place] Number[place] Repository [id number]: 330 [id number] [phone] () Date:2018-07-03 07/03/2018 Secondary SHAILA A [place] Insurance:MEDICAL SHAFFERDOB: [facility] [id number] Hospital Number: Repository [id number] Date:3826-04-61XK [address] [place] [address]TA: 07/03/2018 Tertiary NOT GIVENUNK [place] Insurance:SELF PAY [facility] Number: Effective Repository Date:2018-07-03 07/03/2018 SHAILA A Primary SHAILA A [place] [id number] Insurance:MEDICARE [facility]DOB[facility] [id number] Number[place] Repository [address]Mez: 330 [id number] [phone] () Date:2018-07-03 07/03/2018 Secondary SHAILA A [place] Insurance:MEDICAL SHAFFERDOB: [facility] [id number] Hospital Number: Repository [id number] Date:8727-58-55YB[address] [address]KQ: 07/03/2018 Tertiary NOT GIVENUNK [place] Insurance:SELF PAY [facility] Number: Effective Repository Date:2018-07-03 07/03/2018 SHAILA A Primary [place]AILA A [place] [id number] Insurance:MEDICARE [facility]FFERDOB: [facility] [id number] [place] Number[place] Repository [address]Lga: 330 [id number] [phone] (HP) Date:2018-07-03 07/03/2018 Secondary SHAILA A [place] Insurance:MEDICAL SHAFFERDOB: [facility] [id number] Hospital Number: Repository [id number] Date:5036-54-86GF [address] [address]JJ: 07/03/2018 Tertiary NOT GIVENUNK [place] Insurance:SELF PAY [facility] Number: Effective Repository Date:2018-07-03 07/03/2018 SHAILA A Primary SHAILA A [place] [id number] Insurance:MEDICARE SHAFFERDOB: [facility] [id number] Number: Repository [id number]: 330 [id number] [phone] () Date:2018-07-03 07/03/2018 Secondary SHAILA A [place] Insurance:MEDICAL SHAFFERDOB: [facility] [id number] Hospital Number: Repository [id number] Date:8776-90-38GR[address] [address]GO: 07/03/2018 Tertiary NOT GIVENUNK [place] Insurance:SELF PAY [facility] Number: Effective Repository Date:2018-07-03 07/03/2018 SHAILA A Primary SHAILA A [place] [id number] Insurance:MEDICARE SHAFFERDOB: [facility] 2080-06-27[place]AML[place] Number[place] Repository [id number]: 330 [id number] [phone] () Date:2018-07-03 07/03/2018 Secondary SHAILA A [place] Insurance:MEDICAL SHAFFERDOB: [facility] 6199-04-08SZH Hospital Number: Repository [id number] Date:8142-17-00TM [address] [address]SN: 07/03/2018 Tertiary NOT GIVENUNK [place] Insurance:SELF PAY [facility] Number: Effective Repository Date:2018-07-03 07/03/2018 SHAILA A Primary [place]AILA A [place] [id number] Insurance:MEDICARE [facility] PART A [facility] [id number] [place] Number[place] Repository [id number]: 330 [id number] [phone] (HP) Date:2018-07-03 07/03/2018 Secondary SHAILA A [place] Insurance:MEDICAL SHAFFERDOB: [facility] [id number] Hospital Number: Repository [id number] Date:8464-25-10IK [address] [address]MZ: 07/03/2018 Tertiary NOT GIVENUNK [place] Insurance:SELF PAY [facility] Number: Effective Repository Date:2018-07-03 07/02/2018 SHAILA A STOLL Primary SHAILA A [place] [id number] Insurance:MEDICARE Jr.: [facility] PART A [facility] [id number] [place] Number: Repository [address]Mls: 330 [id number] [phone] (HP) Date:2018-06-22 07/02/2018 Secondary SHAILA A STO[place] Insurance:MEDICAL Jr.: [facility] [id number] Hospital Number: Repository [id number] Date:5032-03-06TA [address] [address]SQ: 07/02/2018 Tertiary NOT GIVENUNK [place] Insurance:SELF PAY [facility] Number: Effective Repository Date:2018-06-22 07/01/2018 SHAILA A Primary SHAILA A [place] [id number] Insurance:MEDICARE [facility]: [facility] PART A [facility] [id number] [place] Number[place] Repository [id number]: 330 [id number] [phone] (HP) Date:2018-07-01 07/01/2018 Secondary SHAILA A [place] Insurance:MEDICAL SHAFFERDOB: [facility] [id number] Hospital Number: Repository [id number] Date:4194-22-26YV [address] [place] [address]VX: 07/01/2018 Tertiary NOT GIVENUNK [place] Insurance:SELF PAY [facility] Number: Effective Repository Date:2018-07-01 07/01/2018 SHAILA A Primary SHAILA A [place] [id number] Insurance:MEDICARE [facility]FFERDOB: [facility] [id number] [place] Number: Repository [id number]: 330 [id number] [phone] (HP) Date:2017-06-02 07/01/2018 Secondary SHAILA A [place] Insurance:MEDICAL SHAFFERDOB: [facility] [id number] Hospital Number: Repository [id number] Date:6793-51-81VM [address] [address]AD: 07/01/2018 Tertiary NOT GIVENUNK [place] Insurance:SELF PAY [facility] Number: Effective Repository Date:2018-07-01 07/01/2018 SHAILA A Primary [place]AILA A [place] [id number] Insurance:MEDICARE SHAFFERDOB: [facility] PART A [facility] [id number] [place] [address] Number: Repository [id number]: 330 [id number] [phone] (HP) Date:2018-07-01 07/01/2018 Secondary SHAILA A [place] Insurance:MEDICAL SHAFFERDOB: [facility] [id number] Hospital Number: Repository [id number] Date:6964-54-21KB[address] [address]RY: 07/01/2018 Tertiary NOT GIVENUNK [place] Insurance:SELF PAY [facility] Number: Effective Repository Date:2018-07-01 07/01/2018 SHAILA A Primary [place]AILA A [place] [id number] Insurance:MEDICARE SHAFFERDOB: [facility] PART A [facility] [id number] [place] Number: Repository [id number]: 330 [id number] [phone] (HP) Date:2017-06-02 07/01/2018 Secondary SHAILA A [place] Insurance:MEDICAL SHAFFERDOB: [facility] 7309-11-04SSA Hospital Number: Repository [id number] Date:1073-00-44KH [address] [address]ZM: 07/01/2018 Tertiary NOT GIVENUNK [place] Insurance:SELF PAY [facility] Number: Effective Repository Date:2017-06-02 06/23/2018 SHAILA A Primary SHAILA A [place] [id number] Insurance:MEDICARE SHAFFERDOB: [facility] [id number] Number: Repository [id number]: 330 [id number] [phone] () Date:2018-06-08 06/23/2018 Secondary SHAILA A [place] Insurance:MEDICAL SHAFFERDOB: [facility] [id number] Hospital Number: Repository [id number] Date:5785-59-55IG[address] [address]SU: 06/23/2018 Tertiary NOT GIVENUNK [place] Insurance:SELF PAY [facility] Number: Effective Repository Date:2018-06-16 06/22/2018 SHAILA A Primary [place]AILA A [place] [id number] Insurance:MEDICARE SHAFFERDOB: [facility] [id number] Number: Repository [id number]: 330 [id number] [phone] () Date:2018-06-21 06/22/2018 Secondary SHAILA A [place] Insurance:MEDICAL SHAFFERDOB: [facility] [id number] Hospital Number: Repository [id number] Date:1369-37-94AA[address] [address]OX: 06/22/2018 Tertiary NOT GIVENUNK [place] Insurance:SELF PAY [facility] Number: Effective Repository Date:2018-06-22 06/21/2018 SHAILA A Primary [place]A A [place] [id number] Insurance:MEDICARE SHAFFERDOB: [facility] PART A [facility] [id number] [place] Number: Repository [id number]: 330 [id number] [phone] (HP) Date:2018-06-21 06/21/2018 Secondary SHAILA A [place] Insurance:MEDICAL SHAFFERDOB: [facility] [id number] Hospital Number: Repository [id number] Date:7935-01-84PI[address] [address]FW: 06/21/2018 Tertiary NOT GIVENUNK [place] Insurance:SELF PAY [facility] Number: Effective Repository Date:2018-06-21 06/21/2018 SHAILA A Primary [place]AILA A [place] [id number] Insurance:MEDICARE SHAFFERDOB: [facility] PART A [facility] [id number] [place] Number: Repository [address]Kxj: 330 [id number] [phone] (HP) Date:2018-06-21 06/21/2018 Secondary SHAILA A [place] Insurance:MEDICAL SHAFFERDOB: [facility] [id number] Hospital Number: Repository [id number] Date:8016-01-94WE[address] [address]AP: 06/21/2018 Tertiary NOT GIVENUNK [place] Insurance:SELF PAY [facility] Number: Effective Repository Date:2018-06-21 06/21/2018 SHAILA A Primary [place]AILA A [place] [id number] Insurance:MEDICARE SHAFFERDOB: [facility] PART A [facility] [id number] [place] Number: Repository [address]Kge: 330 [id number] [phone] (HP) Date:2017-06-02 06/21/2018 Secondary SHAILA A [place] Insurance:MEDICAL [facility] [id number] Hospital Number: Repository [id number] Date:9879-91-64OW [facility] [address], [place] [address]WL: 06/21/2018 Tertiary NOT GIVENUNK [place] Insurance:SELF PAY [facility] Number: Effective Repository Date:2018-06-21 06/18/2018 SHAILA A Primary SHAILA A [place] [id number] Insurance:MEDICARE [facility]FFERDOB: [facility] [id number] [place] Number: Repository [address]Tjh: 330 [id number] [phone] (HP) Date:2018-06-09 06/18/2018 Secondary SHAILA A [place] Insurance:MEDICAL SHAFFERDOB: [facility] [id number] Hospital Number: Repository [id number] Date:3714-45-73FV [address] [place] [address]CT: 06/18/2018 Tertiary NOT GIVENUNK [place] Insurance:SELF PAY [facility] Number: Effective Repository Date:2018-06-18 06/18/2018 SHAILA A Primary SHAILA A [place] [id number] Insurance:MEDICARE SHAFFERDOB: [facility] [id number] [place] Number: Repository [id number]: 330 [id number] [phone] () Date:2018-06-09 06/18/2018 Secondary SHAILA A [place] Insurance:MEDICAL SHAFFERDOB: [facility] [id number] Hospital Number: Repository [id number] Date:0048-03-99AI[address] [address]PZ: 06/18/2018 Tertiary NOT GIVENUNK [place] Insurance:SELF PAY [facility] Number: Effective Repository Date:2018-06-09 06/15/2018 SHAILA A Primary SHAILA A [place] [id number] Insurance:MEDICARE SHAFFERDOB: [facility] PART A [facility] [id number] [place] Number: Repository [id number]: 330 [id number] [phone] (HP) Date:2017-06-02 06/15/2018 Secondary [place]AILA A [place] Insurance:MEDICAL SHAFFERDOB: [facility] 6087-22-89FSO Hospital Number: Repository [id number] Date:3317-02-06GJ [address] [place] [address]LE: 06/15/2018 Tertiary [place]AILA A [place] Insurance:CARESOURCE SHAFFERDOB: [facility] 7838-34-68AIK Hospital Number: Repository [id number] Date:5662-72-27Ck [place] [address] [place] [address]RD: 06/15/2018 Tertiary NOT GIVENUNK [place] Insurance:SELF PAY [facility] Number: Effective Repository Date:2018-06-15 06/15/2018 SHAILA A Primary [place]AILA A [place] [id number] Insurance:MEDICARE SHAFFERDOB: [facility] [id number] [place] Number: Repository [address]Bwc: 330 [id number] [phone] () Date:2017-06-02 06/15/2018 Secondary SHAILA A [place] Insurance:MEDICAL SHAFFERDOB: [facility] [id number] Hospital Number: Repository [id number] Date:2326-09-79FS[address] [address]CL: 06/15/2018 Tertiary NOT GIVENUNK [place] Insurance:SELF PAY [facility] Number: Effective Repository Date:2018-06-15 06/10/2018 SHAILA A Primary [place]AILA A [place] [id number] Insurance:MEDICARE SHAFFERDOB: [facility] PART A [facility] [id number] Number: Repository [address]Wxl: 330 [id number] [phone] (HP) Date:2018-02-18 06/10/2018 Secondary SHAILA A [place] Insurance:MEDICAL SHAFFERDOB: [facility] 8931-58-02EUY Hospital Number: Repository [id number] Date:2086-49-99CZ [address] [place] [address]ED: 06/10/2018 Tertiary NOT GIVENUNK [place] Insurance:SELF PAY [facility] Number: Effective Repository Date:2018-02-18 06/10/2018 SHAILA A Primary SHAILA A [place] [id number] Insurance:MEDICARE SHAFFERDOB: [facility] PART A [facility] [id number] [place] Number: Repository [id number]: [id number] [phone] (HP) Date:2018-02-18 06/10/2018 Secondary SHAILA A [place] Insurance:MEDICAL SHAFFERDOB: [facility] 3349-04-65MTA Hospital Number: Repository [id number] Date:6779-74-91AI [address] [place] [address]LA: 06/10/2018 Tertiary NOT GIVENUNK [place] Insurance:SELF PAY [facility] Number: Effective Repository Date:2018-06-10 06/08/2018 SHAILA A STOLL Primary SHAILA A [place]LL [id number] [id number] Insurance:MEDICARE Jr.: [facility] [place] [facility] [id number] [place] [address] Number: Repository [id number]: 330 [id number] [phone] () Date:2018-06-08 06/08/2018 Secondary SHAILA A STOLL [place] Insurance:MEDICAL Jr.: [facility] [id number] Hospital Number: Repository [id number] Date:8031-96-69SK [address] [place] [address]KY: 06/08/2018 Tertiary NOT GIVENUNK [place] Insurance:SELF PAY [facility] Number: Effective Repository Date:2018-06-08 06/08/2018 SHAILA A Primary SHAILA A [place] [id number] Insurance:MEDICARE [facility]: [facility] [place] [facility] [id number] Number[place] Repository [id number]: (847) [id number] [phone] (HP) Date:2018-04-28 06/08/2018 Secondary SHAILA A [place] Insurance:MEDICAL SHAFFERDOB: [facility] [id number] Hospital Number: Repository [id number] Date:4653-81-25PR[address] [address]MB: 06/08/2018 Tertiary NOT GIVENUNK [place] Insurance:SELF PAY [facility] Number: Effective Repository Date:2018-05-31 05/18/2018 SHAILA A Primary SHAILA A [place] [id number] Insurance:MEDICARE SHAFFERDOB: [facility] PART A [facility] [id number] [place] Number[place] Repository [id number]: 330 [id number] [phone] (HP) Date:2018-05-18 05/18/2018 Secondary SHAILA A [place] Insurance:MEDICAL SHAFFERDOB: [facility] 5590-07-68HGX Hospital Number: Repository [id number] Date:4530-21-43JL[address] [address]RW: 05/18/2018 Tertiary NOT GIVENUNK [place] Insurance:SELF PAY [facility] Number: Effective Repository Date:2018-05-18 04/28/2018 SHAILA A Primary SHAILA A [place] [id number] Insurance:MEDICARE SHAFFERDOB: [facility] PART A [facility] [id number] [place] Number: Repository [address]Xqb: 330 [id number] [phone] (HP) Date:2018-04-27 04/28/2018 Secondary SHAILA A [place] Insurance:MEDICAL SHAFFERDOB: [facility] [id number] Hospital Number: Repository [id number] Date:0974-16-25MD[address] [address]TS: 04/28/2018 Tertiary NOT GIVENUNK [place] Insurance:SELF PAY [facility] Number: Effective Repository Date:2018-04-27 04/01/2018 SHAILA A Primary SHAILA A [place] [id number] Insurance:MEDICARE SHAFFERDOB: [facility] [place] [facility] [id number] Number[place] Repository [id number]: 330 [id number] [phone] (HP) Date:2018-03-31 04/01/2018 Secondary SHAILA A [place] Insurance:MEDICAL SHAFFERDOB: [facility] 3734-81-53ERW Hospital Number: Repository [id number] Date:9236-39-07EW[address] [address]XC: 04/01/2018 Tertiary NOT GIVENUNK [place] Insurance:SELF PAY [facility] Number: Effective Repository Date:2018-04-01 03/31/2018 SHAILA A Primary SHAILA A [place] [id number] Insurance:MEDICARE [facility]FFERDOB: [facility] [id number] [place] Number[place] Repository [id number]: 330 [id number] [phone] (HP) Date:2018-03-31 03/31/2018 Secondary SHAILA A [place] Insurance:MEDICAL SHAFFERDOB: [facility] [id number] Hospital Number: Repository [id number] Date:8935-10-61TK[address] [address]TF: 03/31/2018 Tertiary NOT GIVENUNK [place] Insurance:SELF PAY [facility] Number: Effective Repository Date:2018-03-31 03/31/2018 SHAILA A Primary SHAILA A [place] [id number] Insurance:MEDICARE SHAFFERDOB: [facility] [place] [facility] [id number] [place] Number[place] Repository [id number]: 330 [id number] [phone] (HP) Date:2018-03-31 03/31/2018 Secondary SHAILA A [place] Insurance:MEDICAL SHAFFERDOB: [facility] [id number] Hospital Number: Repository [id number] Date:2573-02-46XC[address] [address]ZU: 03/31/2018 Tertiary NOT GIVENUNK [place] Insurance:SELF PAY [facility] Number: Effective Repository Date:2018-03-31 03/31/2018 SHAILA A Primary SHAILA A [place] [id number] Insurance:MEDICARE SHAFFERDOB: [facility] PART A [facility] [id number] Number[place] Repository [id number]: (887) [id number] [phone] () Date:2018-03-31 03/31/2018 Secondary SHAILA A [place] Insurance:MEDICAL SHAFFERDOB: [facility] [id number] Hospital Number: Repository [id number] Date:0562-47-52OG[address] [address]DO: 03/31/2018 Tertiary NOT GIVENUNK [place] Insurance:SELF PAY [facility] Number: Effective Repository Date:2018-03-31 03/31/2018 SHAILA A Primary SHAILA A [place] [id number] Insurance:MEDICARE [facility]FFERDOB: [facility] [id number] Number: Repository [id number]: 330 [id number] [phone] () Date:2018-03-31 03/31/2018 Secondary SHAILA A [place] Insurance:MEDICAL SHAFFERDOB: [facility] [id number] Hospital Number: Repository [id number] Date:3691-64-07XX[address] [address]VG: 03/31/2018 Tertiary NOT GIVENUNK [place] Insurance:SELF PAY [facility] Number: Effective Repository Date:2018-03-31 03/16/2018 SHAILA A Primary SHAILA A [place] [id number] Insurance:MEDICARE SHAFFERDOB: [facility] PART A [facility] [id number] [place] [address] Number: Repository [id number]: 330 [id number] [phone] () Date:2017-06-02 03/16/2018 Secondary SHAILA A [place] Insurance:MEDICAL SHAFFERDOB: [facility] [id number] Hospital Number: Repository [id number] Date:9514-85-40BT [address] [address]KG: 03/16/2018 Tertiary SHAILA A [place] Insurance:CARESOURCE SHAFFERDOB: [facility] [id number] Hospital Number: Repository [id number] Date:1877-04-47Fj[address] [address]WJ: 03/16/2018 Tertiary NOT GIVENUNK [place] Insurance:SELF PAY [facility] Number: Effective Repository Date:2018-03-16 03/09/2018 SHAILA A Primary SHAILA A [place] [id number] Insurance:MEDICARE SHAFFERDOB: [facility] PART A [facility] [id number] Number[place] Repository [address]Nth: 330 [id number] [phone] () Date:2017-12-15 03/09/2018 Secondary SHAILA A [place] Insurance:MEDICAL SHAFFERDOB: [facility] [id number] Hospital Number: Repository [id number] Date:8953-52-38UW[address] [address]RA: 03/09/2018 Tertiary [place]AILA A [place] Insurance:CARESOURCE SHAFFERDOB: [facility] [id number] Hospital Number: Repository [id number] Date:0557-32-79Sp[address] [address]WB: 03/09/2018 Tertiary NOT GIVENUNK [place] Insurance:SELF PAY [facility] Number: Effective Repository Date:2017-12-15 02/18/2018 SHAILA A Primary SHAILA A [place] [id number] Insurance:MEDICARE SHAFFERDOB: [facility] [place] [facility] [id number] Number[place] Repository [id number]: 330 [id number] [phone] () Date:2017-11-25 02/18/2018 Secondary SHAILA A [place] Insurance:MEDICAL SHAFFERDOB: [facility] [id number] Hospital Number: Repository [id number] Date:6657-56-71FK[address] [address]XG: 02/18/2018 Tertiary NOT GIVENUNK [place] Insurance:SELF PAY [facility] Number: Effective Repository Date:2018-02-11 02/08/2018 SHAILA A Primary SHAILA A [place] [id number] Insurance:MEDICARE SHAFFERDOB: [facility] PART A [facility] [id number] Number[place] Repository [id number]: 330 [id number] [phone] () Date:2017-11-25 02/08/2018 Secondary SHAILA A [place] Insurance:MEDICAL SHAFFERDOB: [facility] [id number] Hospital Number: Repository [id number] Date:9567-88-79GA[address] [address]ZM: 02/08/2018 Tertiary NOT GIVENUNK [place] Insurance:SELF PAY [facility] Number: Effective Repository Date:2018-02-08 02/05/2018 SHAILA A Primary SHAILA A [place] [id number] Insurance:MEDICARE SHAFFERDOB: [facility] PART A [facility] [id number] [place] Number[place] Repository [address]Yba: 330 [id number] [phone] () Date:2017-11-25 02/05/2018 Secondary SHAILA A [place] Insurance:MEDICAL SHAFFERDOB: [facility] 1834-86-81JEM Hospital Number: Repository [id number] Date:8408-44-98WV[address] [address]JV: 02/05/2018 Tertiary NOT GIVENUNK [place] Insurance:SELF PAY [facility] Number: Effective Repository Date:2017-11-25 02/04/2018 SHAILA A Primary SHAILA A [place] [id number] Insurance:MEDICARE SHAFFERDOB: [facility] PART A [facility] [id number] Number[place] Repository [id number]: 330 [id number] [phone] () Date:2017-11-25 02/04/2018 Secondary SHAILA A [place] Insurance:MEDICAL SHAFFERDOB: [facility] [id number] Hospital Number: Repository [id number] Date:0922-79-82QA [facility] [address] [place] [address]SB: 02/04/2018 Tertiary SHAILA A [place] Insurance:CARESOURCE SHAFFERDOB: [facility] [id number] Hospital Number: Repository [id number] Date:9274-97-85Rh [place] [address]AX: 02/04/2018 Tertiary NOT GIVENUNK [place] Insurance:SELF PAY [facility] Number: Effective Repository Date:2017-11-25 02/04/2018 SHAILA A Primary SHAILA A [place] [id number] Insurance:MEDICARE SHAFFERDOB: [facility] PART A [facility] [id number] Number[place] Repository [id number]: 330 [id number] [phone] () Date:2017-11-25 02/04/2018 Secondary SHAILA A [place] Insurance:MEDICAL SHAFFERDOB: [facility] [id number] Hospital Number: Repository [id number] Date:4363-60-08XX [facility] [address] [place] [address]BY: 02/04/2018 Tertiary SHAILA A [place] Insurance:CARESOURCE SHAFFERDOB: [facility] [id number] Hospital Number: Repository [id number] Date:6439-11-20Yj [address] [place] [address]PG: 02/04/2018 Tertiary NOT GIVENUNK [place] Insurance:SELF PAY [facility] Number: Effective Repository Date:2018-02-04 01/14/2018 SHAILA A Primary SHAILA A [place] [id number] Insurance:MEDICARE SHAFFERDOB: [facility] [place] A [facility] [id number] [place] Number[place] Repository [id number]: 330 [id number] [phone] () Date:2017-06-02 01/14/2018 Secondary SHAILA A [place] Insurance:MEDICAL SHAFFERDOB: [facility] [id number] Hospital Number: Repository [id number] Date:8885-36-61MN [address] [address]WO: 01/14/2018 Tertiary SHAILA A [place] Insurance:CARESOURCE SHAFFERDOB: [facility] [id number] Hospital Number: Repository [id number] Date:8975-17-46Kk [address] [address]IA: 01/14/2018 Tertiary NOT GIVENUNK [place] Insurance:SELF PAY [facility] Number: Effective Repository Date:2018-01-14 01/14/2018 SHAILA A Primary [place]AILA A [place] [id number] Insurance:MEDICARE [facility]DOB[facility] [id number] Number[place] Repository [id number]: 330 [id number] [phone] () Date:2018-01-14 01/14/2018 Secondary SHAILA A [place] Insurance:MEDICAL SHAFFERDOB: [facility] [id number] Hospital Number: Repository [id number] Date:7015-48-36GF [address] [address]BV: 01/14/2018 Tertiary NOT GIVENUNK [place] Insurance:SELF PAY [facility] Number: Effective Repository Date:2018-01-14 12/15/2017 SHAILA A Primary SHAILA A [place] [id number] Insurance:MEDICARE SHAFFERDOB: [facility] [place] A [facility] [id number] Number[place] Repository [id number]: 330 [id number] [phone] () Date:2017-06-02 12/15/2017 Secondary SHAILA A [place] Insurance:MEDICAL SHAFFERDOB: [facility] [id number] Hospital Number: Repository [id number] Date:6795-98-72DM [facility] [address] [place] [address]OU: 12/15/2017 Tertiary SHAILA A [place] Insurance:CARESOURCE SHAFFERDOB: [facility] [id number] Hospital Number: Repository [id number] Date:0853-19-11Rb[address] [address]RW: 12/15/2017 Tertiary NOT GIVENUNK [place] Insurance:SELF PAY [facility] Number: Effective Repository Date:2017-12-15 11/25/2017 SHAILA A Primary [place]AILA A [place] [id number] Insurance:MEDICARE SHAFFERDOB: [facility] [place] A [facility] [id number] Number[place] Repository [id number]: 330 [id number] [phone] () Date:2017-10-06 11/25/2017 Secondary SHAILA A [place] Insurance:MEDICAL SHAFFERDOB: [facility] [id number] Hospital Number: Repository [id number] Date:5734-27-35AY[address] [address]ET: 11/25/2017 Tertiary NOT GIVENUNK [place] Insurance:SELF PAY [facility] Number: Effective Repository Date:2017-11-18 11/24/2017 SHAILA A Primary SHAILA A [place] [id number] Insurance:MEDICARE SHAFFERDOB: [facility] [place] PART A [facility] [id number] [place] Number[place] Repository [id number]: (039) [id number] [phone] (HP) Date:2017-06-02 11/24/2017 Secondary SHAILA A [place] Insurance:MEDICAL SHAFFERDOB: [facility] [id number] Hospital Number: Repository [id number] Date:7592-30-64DK [address] [address]SN: 11/24/2017 Tertiary SHAILA A [place] Insurance:CARESOURCE SHAFFERDOB: [facility] 1887-53-34TFS Hospital Number: Repository [id number] Date:6128-33-01[address] [address]WP: 11/24/2017 Tertiary NOT GIVENUNK [place] Insurance:SELF PAY [facility] Number: Effective Repository Date:2017-11-24 11/03/2017 SHAILA A Primary [place]AILA A [place] [id number] Insurance:MEDICARE SHAFFERDOB: [facility] [place] [facility] 5817-30-21AGTL[place] Number[place] Repository [id number]: [id number] [phone] () Date:2017-09-17 11/03/2017 Secondary SHAILA A [place] Insurance:MEDICAL SHAFFERDOB: [facility] [id number] Hospital Number: Repository [id number] Date:2378-09-71DW[address] [address]YS: 11/03/2017 Tertiary NOT GIVENUNK [place] Insurance:SELF PAY [facility] Number: Effective Repository Date:2017-09-17 11/03/2017 SHAILA A Primary [place]AILA A [place] [id number] Insurance:MEDICARE SHAFFERDOB: [facility] [place] PART A [facility] [id number] [place] Number[place] Repository [id number]: [phone]) [id number] [phone] (HP) Date:2017-06-02 11/03/2017 Secondary SHAILA A [place] Insurance:MEDICAL SHAFFERDOB: [facility] [id number] Hospital Number: Repository [id number] Date:8483-27-23TF [address] [address]OW: 11/03/2017 Tertiary NOT GIVENUNK [place] Insurance:SELF PAY [facility] Number: Effective Repository Date:2017-11-03 10/13/2017 SHAILA A Primary SHAILA A [place] [id number] Insurance:MEDICARE SHAFFERDOB: [facility] [place] PART A [facility] [id number] Number[place] Repository [id number]: 330 [id number] [phone] () Date:2017-10-13 10/13/2017 Secondary SHAILA A [place] Insurance:MEDICAL SHAFFERDOB: [facility] [id number] Hospital Number: Repository [id number] Date:5154-80-87GM[address] [address]EQ: 10/13/2017 Tertiary NOT GIVENUNK [place] Insurance:SELF PAY [facility] Number: Effective Repository Date:2017-10-13 10/06/2017 SHAILA A Primary [place]AILA [place] [id number] Insurance:MEDICARE SHAFFERDOB: [facility] [place] [facility] A [facility] [id number] [place] Number[place] Repository [id number]: 330 [id number] [phone] (HP) Date:2017-10-06 10/06/2017 Secondary SHAILA A [place] Insurance:MEDICAL SHAFFERDOB: [facility] [id number] Hospital Number: Repository [id number] Date:5758-30-17ZD[address] [address]KW: 10/06/2017 Tertiary NOT GIVENUNK [place] Insurance:SELF PAY [facility] Number: Effective Repository Date:2017-10-06 10/02/2017 SHAILA A Primary [place]AILA A [place] [id number] Insurance:MEDICARE SHAFFERDOB: [facility] [place] PART A [facility] [id number] [place] Number[place] Repository [id number]: 330 [id number] [phone] (HP) Date:2017-10-02 10/02/2017 Secondary SHAILA A [place] Insurance:MEDICAL SHAFFERDOB: [facility] [id number] Hospital Number: Repository [id number] Date:2265-53-46EB[address] [address]CZ: 10/02/2017 Tertiary NOT GIVENUNK [place] Insurance:SELF PAY [facility] Number: Effective Repository Date:2017-10-02 10/02/2017 SHAILA A Primary SHAILA A [place] [id number] Insurance:MEDICARE SHAFFERDOB: [facility] [place] PART A [facility] [id number] [place] Number[place] Repository [id number]: 330 [id number] [phone] (HP) Date:2017-10-02 10/02/2017 Secondary SHAILA A [place] Insurance:MEDICAL SHAFFERDOB: [facility] [id number] Hospital Number: Repository [id number] Date:7426-18-05AK[address] [address]XQ: 10/02/2017 Tertiary NOT GIVENUNK [place] Insurance:SELF PAY [facility] Hospital Number: Effective Repository Date:2017-10-02 10/02/2017 SHAILA A Primary SHAILA A [place] [id number] Insurance:MEDICARE SHAFFERDOB: [facility] [place] A [facility] [id number] [place] Number: Repository [id number]: 330 [id number] [phone] (HP) Date:2017-10-02 10/02/2017 Secondary SHAILA A [place] Insurance:MEDICAL SHAFFERDOB: [facility] 7829-09-09YAZ Hospital Number: Repository [id number] Date:7840-17-17EP[address] [address]KL: 10/02/2017 Tertiary NOT GIVENUNK [place] Insurance:SELF PAY [facility] Number: Effective Repository Date:2017-10-02 10/02/2017 SHAILA A Primary [place]AILA A [place] [id number] Insurance:MEDICARE SHAFFERDOB: [facility] [place] PART A [facility] [id number] Number[place] Repository [id number]: (872) [id number] [phone] (HP) Date:2017-10-02 10/02/2017 Secondary SHAILA A [place] Insurance:MEDICAL SHAFFERDOB: [facility] [id number] Hospital Number: Repository [id number] Date:9415-76-98FR [address] [address]EQ: 10/02/2017 Tertiary NOT GIVENUNK [place] Insurance:SELF PAY [facility] Number: Effective Repository Date:2017-10-02 10/02/2017 SHAILA A Primary [place]AILA [place] [id number] Insurance:MEDICARE SHAFFERDOB: [facility] [place] PART A [facility] [id number] [place] Number[place] Repository [address]Nsg: 330 [id number] [phone] () Date:2017-10-02 10/02/2017 Secondary SHAILA A [place] Insurance:MEDICAL SHAFFERDOB: [facility] 6074-29-83QHI Hospital Number: Repository [id number] Date:3089-10-36BB [address] [place] [address]BL: 10/02/2017 Tertiary NOT GIVENUNK [place] Insurance:SELF PAY [facility] Number: Effective Repository Date:2017-10-02 10/02/2017 SHAILA A Primary SHAILA A [place] [id number] Insurance:MEDICARE SHAFFERDOB: [facility] [place] [facility] [id number] [place] Number: Repository [id number]: (231) [id number] [phone] () Date:2017-10-02 10/02/2017 Secondary SHAILA A [place] Insurance:MEDICAL SHAFFERDOB: [facility] [id number] Hospital Number: Repository [id number] Date:1795-38-07IR [address] [place] [address]OC: 10/02/2017 Tertiary NOT GIVENUNK [place] Insurance:SELF PAY [facility] Hospital Number: Effective Repository Date:2017-10-02 10/02/2017 SHAILA A Primary SHAILA A [place] [id number] Insurance:MEDICARE SHAFFERDOB: [facility] PART A [facility] [id number] [place] Number[place] Repository [id number]: (992) [id number] [phone] () Date:2017-10-02 10/02/2017 Secondary SHAILA A [place] Insurance:MEDICAL SHAFFERDOB: [facility] [id number] Hospital Number: Repository [id number] Date:3602-17-50JB [address] [place] [address]SE: 10/02/2017 Tertiary NOT GIVENUNK [place] Insurance:SELF PAY [facility] Number: Effective Repository Date:2017-10-02 09/24/2017 SHAILA A Primary SHAILA A [place] [id number] KEVIN Insurance:CARESOURCE SHAFFERDOB: Community [address] JUST FOR [facility] 5596-78-22[place] Number[place] Repository [address]Tgj: [id number] [phone] Date:1418-88-80Fy [address] () [place], [place] [address]MR: 09/24/2017 Secondary NOT GIVENUNK [place] Insurance:SELF PAY [facility] Number: Effective Repository Date:2017-09-23 09/16/2017 SHAILA A Primary SHAILA A [place] [id number] KEVIN Insurance:CARESOURCE SHAFFERDOB: [facility] [address] JUST FOR [facility] 2268-99-57ZHDSchene[place] Number: Repository [address]Mgr: [id number] [phone] Date:0517-92-62Kl [address] (HP) [place] [address]KV: 09/16/2017 Secondary NOT GIVENUNK [place] Insurance:SELF PAY [facility] Number: Effective Repository Date:2017-09-15 09/15/2017 SHAILA A Primary SHAILA [id number] [place]EV[place] Insurance:CARESOURCE SHAFFERDOB: Community [address] [facility] [id number] Ridge [place] Number: Repository [id number]: [id number] [phone] Date:0147-88-84Vr [address] (HP) [address] [address]VZ: 09/15/2017 Secondary NOT GIVENUNK [place] Insurance:SELF PAY [facility] Number: Effective Repository Date:2017-09-15 09/02/2017 SHAILA A Primary SHAILA [id number] [place] Insurance:CARESOURCE SHAFFERDOB: Community [address] [facility] [id number] Ridge [place] Number: Repository [address]Xoi: [id number] [phone] Date:7481-23-06KS [address] (HP) [address] [address]EE: 09/02/2017 Secondary NOT GIVENUNK [place] Insurance:SELF PAY [facility] Number: Effective Repository Date:2017-07-13 08/27/2017 Shaila A Primary Shaila [id number] [place] Insurance:CARESOURCE ShafferDOB: Community [address] JUST FOR [facility] 7828-47-38[facility] Number: Repository [address]Mrb: [id number] [phone] Date:4986-65-48Bj [address] (HP) [place] [address]YM: 08/27/2017 Secondary NOT GIVENUNK [place] Insurance:SELF PAY [facility] Number: Effective Repository Date:2017-08-27 08/17/2017 Shaila A Primary Shaila Davi [place] [id number] [place] Insurance:MERA ThomasB: [facility] [id number] Number: Repository [id number]: [id number] [phone] Date:4166-85-11Fd [address] (AB) [place] [address]DO: 08/17/2017 Secondary NOT GIVENUNK [place] Insurance:SELF PAY [facility] Number: Effective Repository Date:2017-08-17
== END 2018-07-07 14:52 | disposition hospice, home (50) | DRG 281 ==
LOC: ED 10:42 → PCU 11:38
PROVIDERS: Family Medicine; Internal Medicine Cardiovascular Disease; Admitting Provider Hospitalist; Emergency Provider Emergency Medicine; Family Provider Preventive Medicine Occupational Medicine; PCP Preventive Medicine Occupational Medicine; Visit Provider Family Medicine
DX: I21.4 Non-ST elevation (NSTEMI) myocardial infarction (principal); J91.0 Malignant pleural effusion; C79.51 Secondary malignant neoplasm of bone; D68.9 Coagulation defect, unspecified; C34.32 Malignant neoplasm of lower lobe, left bronchus or lung; J44.9 Chronic obstructive pulmonary disease, unspecified; D63.8 Anemia in other chronic diseases classified elsewhere; Z66 Do not resuscitate; Z51.5 Encounter for palliative care; G35 Multiple sclerosis; I10 Essential (primary) hypertension; E78.5 Hyperlipidemia, unspecified; Z86.711 Personal history of pulmonary embolism; Z90.79 Acquired absence of other genital organ(s); Z86.718 Personal history of other venous thrombosis and embolism; Z87.891 Personal history of nicotine dependence; Z90.2 Acquired absence of lung [part of]; Z79.818 Long term (current) use of other agents affecting estrogen receptors and estrogen levels; Z85.46 Personal history of malignant neoplasm of prostate; Z92.3 Personal history of irradiation; Z86.73 Personal history of transient ischemic attack (TIA), and cerebral infarction without residual deficits
CPT/HCPCS: 32555; 36415; 71045; 71046; 71260; 71275; 74176; 76604; 80048; 80053; 80061; 80076; 83605; 83615; 83690; 83735; 84156; 84157; 84484; 85025; 85027; 85610; 85730; 87070; 87075; 87205; 88108; 88305; 88313; 88341; 88342; 93005; 93306; 97163; 97165; 97530; 97802; 99284; J7030; Q9967; A4216